=== PATIENT | female | born 1960 | race Caucasian/White ===

== ENCOUNTER 2016-05-08 12:38 | Observation (INO) | payer OTHER ==
[~2016-05-08 12:38] MED LIST: ACCL20 PO; ALBU1AER9 INH; ALEN70TA4 PO; CHOL100010 PO; CITA40TA12 PO; DXY100 PO; IPRASOL4 INH; POLY335019 PO; PRED20TA2 PO; SYMIN160 INH
[2016-05-08] MEDS ORDERED: PRED20TA PO (13:25)
[2016-05-08] MEDS ORDERED: ONDANSETRON INJ 2 MG/ML 2 ML VIAL IV STA (13:59)
[2016-05-08] MEDS ORDERED: HYDROmorphone INJ 1 MG/ML SYR IV STA (13:59)
[2016-05-08] MEDS ORDERED: METHYLPREDNISOLONE 125 MG VIAL IV STA (13:59)
[2016-05-08] MEDS ORDERED: ALBUT/IPRATROP 3MG/0.5MG NEB 3 ML VIAL INH ONE (14:00)
--- NOTE | 2016-05-08 14:19 | DIAGNOSTIC IMAGING REPORT ---
CHEST ONE VIEW PORTABLE CLINICAL HISTORY: Suspected pneumonia COMPARISON STUDY: 04/09/2016 FINDINGS: The cardiac and mediastinal contours remain stable. There is a left-sided A-Port catheter. There is mild interstitial thickening similar to the prior study. There is no lobar consolidation. There are no pleural effusions.[ IMPRESSION: Stable mild interstitial thickening. No acute findings. Electronically signed by: Jules Lester M.D. 05/08/2016 2:18 PM
[2016-05-08 14:23] VITALS: PULSE 91; O2SAT 95
[2016-05-08 14:28] LABS: BASO % 0.3 %; BASO ABS # 0.03 K/uL (0-0.2); COMPLETE YES; EOS % 0.9 %; HEMATOCRIT 32.5 % (37-47); IG% 0.2 %; LYMPH % 8.3 %; LYMPH ABS # 0.74 K/uL (1.2-3.4); MEAN CELL VOLUME 79.9 fL (80-100); MEAN CORPUSCULAR HEMOGLOBIN 24.3 pg (25-34); MEAN CORPUSCULAR HGB CONC 30.5 g/dl (32-36); MEAN PLATELET VOLUME 10.4 fL (7.4-10.4); MONO % 1.8 %; NEUT % 88.5 %; PLATELET COUNT 188 K/uL (130-400); RED BLOOD COUNT 4.07 M/uL (4.2-5.4)
[2016-05-08 14:38] LABS: INR 0.9 (0.9-1.1); PARTIAL THROMBOPLASTIN RATIO 0.9
[2016-05-08] MEDS ORDERED: HYDROmorphone INJ 0.5 MG/0.5 ML SYR ONE (14:43)
[2016-05-08 14:50] LABS: BLOOD UREA NITROGEN 10 mg/dl (7-18); BUN/CREATININE RATIO 13.7 (10-20); CALCIUM 8.6 mg/dl (8.5-10.1); CARBON DIOXIDE 30 mmol/L (21-32); CHLORIDE 107 mmol/L (98-107); GLUCOSE 125 mg/dl (70-99); POTASSIUM 3.4 mmol/L (3.5-5.1); SODIUM 143 mmol/L (136-145)
[2016-05-08] MEDS ORDERED: ACETAMINOPHEN 325 MG TAB PO PRN (16:30)
[2016-05-08] MEDS ORDERED: IV FLUIDS COMPLETED PRN (16:30)
[2016-05-08] MEDS ORDERED: ONDANSETRON INJ 2 MG/ML 2 ML VIAL IV PRN (16:30)
[2016-05-08] MEDS ORDERED: GLIM1TAB2 PO (16:45)
[2016-05-08] MEDS ORDERED: POTASSIUM CHLORIDE 10 MEQ TABCR PO SCH (16:45)
[2016-05-08] MEDS ORDERED: PIPERACILL/TAZOBAC CONSULT ACTIVE PRN (17:00)
[2016-05-08] MEDS ORDERED: POLYETHYLENE (MIRALAX) 17 GM PACK PO PRN (17:00)
[2016-05-08] MEDS ORDERED: LORAZEPAM 2 MG TAB PO PRN (17:00)
--- NOTE | 2016-05-08 17:03 | EMERGENCY ROOM VISIT NOTE ---
History Report prepared by Jean-Pierre: Bonnie Marks Under the Supervision of: Dr. Leo Gastelum M.D. First contact with patient: 13:53 Chief Complaint: SHORTNESS OF BREATH Stated Complaint: SHORTNESS OF BREATH History of Present Illness The patient is a 55 year old female who presents to the Emergency Room with complaints of worsening shortness of breath that began about 4 days ago. The patient has a history of COPD and her current symptoms feel very typical of a flare up. She has been using her nebulizer machine with minimal relief. Her most recent breathing treatment was this morning. She also complains of back pain. She has a history of chronic back pain due to a T11 compression fracture, but her back pain worsens when she starts having COPD flare ups. The patient uses 2L oxygen a home only as needed. She is on 10 mg Prednisone daily. She has minimal leg swelling without pain. She denies fever, chest pain, cough, vomiting , diarrhea, abdominal pain, or other complaints. Source of History: patient Onset: 4 days ago Position: other (Global - SOB) Quality: other (shortness of breath) Timing: worsening Modifying Factors (Relieving): other (nebulizer treatments) Associated Symptoms: + back pain, No abdominal pain, No chest pain, No cough , No diarrhea, No fevers, No vomiting Review of Systems See HPI for pertinent positives & negatives. A total of 10 systems reviewed and were otherwise negative. 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 (13) Microscopic hematuria (14) Osteoporosis (15) Sleep apnea (16) Vertebral fracture, closed Surgical Problems: (1) H/O sinus surgery (2) History of carpal tunnel surgery (3) S/P cardiac cath (4) S/P herniorrhaphy (5) Status post appendectomy (6) Status post hernia repair (7) Status post partial colectomy (8) Status post thermoplasty (9) Status post thermoplasty Family History FH: heart disease FATHER FH: sleep apnea MOTHER FHx: cancer FHx: gallbladder disease Hypertension MOTHER Kidney disease MOTHER Social History Smoking Status: Former Smoker Alcohol Use: none Marital Status: Housing Status: lives with significant other Occupation Status: disabled Current/Historical Medications Scheduled Alendronate Sodium (Fosamax), 70 MG PO WK Budesonide/Formoterol Fumarate (Symbicort 160/4.5 Inhaler ), 2 PUFFS INH BID Cholecalciferol (Vitamin D), 1,000 INTER.UNIT PO BID Citalopram Hydrobromide (Celexa), 40 MG PO QAM Cyanocobalamin (Vitamin B-12), 1,000 MCG PO QAM Docusate Sodium (Colace), 200 MG PO HS Immune Globulin (Human) Iv (Privigen), Unknown Dose IV MONTHLY Omeprazole (Prilosec), 20 MG PO BID Oxygen (Oxygen), 2 LITERS NA PRN Prednisone (Prednisone), 10 MG PO DAILY Zafirlukast (Zafirlukast), 20 MG PO BID Scheduled PRN Albuterol Sulfate (Proair Hfa), 1-2 PUFFS INH Q4-6HRS PRN for Rescue-Asthma Symptoms Epinephrine (Epipen 2-Deshawn), 0.3 MG IM UD PRN for ALLERGIC REACTION Furosemide (Furosemide), 40 MG PO UD PRN for Weight Gain Glimepiride (Glimepiride), 1 TAB PO DAILY PRN for glucose > 110 Hydrocodone/Acetaminophen 5MG/325MG ([place] 5MG/325MG), 1-2 TABS PO Q4-6H PRN for Pain Ipratropium-Albuterol (Duoneb), 1 TREATMENT INH Q4H PRN for PRN Lorazepam (Ativan), 1 MG PO QAM PRN for Anxiety Lorazepam (Lorazepam), 2 MG PO HS PRN for Anxiety Polyethylene Glycol 3350 (Miralax), 17 GM PO DAILY PRN for Constipation Potassium Chloride (Potassium Chloride Er), 10 MEQ PO BID PRN for If Furosemide was taken. Allergies Coded Allergies: Aspirin (Verified Allergy, Intermediate, HIVES, 05/08/16) Ibuprofen (Verified Allergy, Intermediate, HIVES, 05/08/16) Levofloxacin (Verified Allergy, Intermediate, HIVES, 05/08/16) Iodinated Diagnostic Agents (Verified Allergy, Unknown, HIVES, 05/08/16) Pregabalin (Unverified Allergy, Unknown, SEVERE DEPRESSION, 05/08/16) Zolpidem (Verified Adverse Reaction, Intermediate, HALLUCINATIONS, ) Gabapentin (Verified Adverse Reaction, Mild, GOOFY THOUGHTS, 05/08/16) Physical Exam Vital Signs Date Time Temp Pulse Resp B/P Pulse Ox O2 Delivery O2 Flow Rate FiO2 05/08/16 16:59 100 05/08/16 16:20 100 18 106/74 94 Nasal Cannula 3.0 05/08/16 14:47 95 18 123/64 97 Nebulizer 7.5 05/08/16 14:23 91 14 95 Nasal Cannula 2.0 05/08/16 13:43 91 20 108/63 95 Nasal Cannula 2.0 05/08/16 12:59 90 18 101/55 94 Nasal Cannula 2.0 05/08/16 12:57 92 05/08/16 12:45 97 Room Air 05/08/16 12:41 99 05/08/16 12:41 36.8 89 20 117/96 99 Physical Exam Constitutional: Vital signs reviewed. Eyes: Pupils are equal round reactive to light. Conjunctiva are noninjected. ENT: Pharynx is clear without erythema or exudate. Mucous membranes are moist. Neck supple without meningeal signs. Respiratory: Diffuse wheezing to auscultation bilaterally. Breath sounds are equal bilaterally. Cardiovascular: Regular rate and rhythm. No rubs or gallops. GI: Soft, nondistended and nontender. Bowel sounds are present. Musculoskeletal: No peripheral edema. No lower extremity tenderness. Integumentary: No cyanosis. Neurological: The patient is awake and alert. No focal deficits. Psychiatric: Normal affect. Medical Decision & Procedures ER Provider Diagnostic Interpretation: X-ray results as stated below per interpretation by me and the radiologist: CHEST ONE VIEW PORTABLE CLINICAL HISTORY: Suspected pneumonia COMPARISON STUDY: 04/09/2016 FINDINGS: The cardiac and mediastinal contours remain stable. There is a left-sided A-Port catheter. There is mild interstitial thickening similar to the prior study. There is no lobar consolidation. There are no pleural effusions.[ IMPRESSION: Stable mild interstitial thickening. No acute findings. Electronically signed by: Jules Lester M.D. 05/08/2016 2:18 PM Laboratory Results 05/08/16 14:15 Red Blood Count 4.07, Mean Corpuscular Volume 79.9, Mean Corpuscular Hemoglobin 24.3, Mean Corpuscular Hemoglobin Concent 30.5, Mean Platelet Volume 10.4, Neutrophils (%) (Auto) 88.5, Lymphocytes (%) (Auto) 8.3, Monocytes (%) (Auto) 1.8, Eosinophils (%) (Auto) 0.9, Basophils (%) (Auto) 0.3, Neutrophils # (Auto) 7.87, Lymphocytes # (Auto) 0.74, Monocytes # (Auto) 0.16, Eosinophils # (Auto) 0.08, Basophils # (Auto) 0.03 05/08/16 14:15 Test 05/08/16 14:15 White Blood Count 8.90 K/uL (4.8-10.8) Red Blood Count 4.07 M/uL (4.2-5.4) Hemoglobin 9.9 g/dL (12.0-16.0) Hematocrit 32.5 % (37-47) Mean Corpuscular Volume 79.9 fL (80-100) Mean Corpuscular Hemoglobin 24.3 pg (25-34) Mean Corpuscular Hemoglobin Concent 30.5 g/dl (32-36) Platelet Count 188 K/uL (130-400) Mean Platelet Volume 10.4 fL (7.4-10.4) Neutrophils (%) (Auto) 88.5 % Lymphocytes (%) (Auto) 8.3 % Monocytes (%) (Auto) 1.8 % Eosinophils (%) (Auto) 0.9 % Basophils (%) (Auto) 0.3 % Neutrophils # (Auto) 7.87 K/uL (1.4-6.5) Lymphocytes # (Auto) 0.74 K/uL (1.2-3.4) Monocytes # (Auto) 0.16 K/uL (0.11-0.59) Eosinophils # (Auto) 0.08 K/uL (0-0.5) Basophils # (Auto) 0.03 K/uL (0-0.2) RDW Standard Deviation 53.3 fL (36.4-46.3) RDW Coefficient of Variation 18.2 % (11.5-14.5) Immature Granulocyte % (Auto) 0.2 % Immature Granulocyte # (Auto) 0.02 K/uL (0.00-0.02) Prothrombin Time 10.0 SECONDS (9.0-12.0) Prothromb Time International Ratio 0.9 (0.9-1.1) Activated Partial Thromboplast Time 24.2 SECONDS (21.0-31.0) Partial Thromboplastin Ratio 0.9 Anion Gap 6.0 mmol/L (3-11) Estimated GFR () 112.3 Estimated GFR (Non- 96.9 BUN/Creatinine Ratio 13.7 (10-20) Calcium Level 8.6 mg/dl (8.5-10.1) Laboratory results as reviewed by me. Medications Administered Medications (Trade) Dose Ordered Sig/Kaye Route Start Time Stop Time Status Last Admin Dose Admin Albuterol/ Ipratropium (Duoneb) 12 ml ONE ONCE INH 05/08/16 14:00 05/08/16 14:03 DC 05/08/16 14:23 12 ML Methylprednisolone Sodium Succinate (Solu-Medrol IV) 125 mg NOW STAT IV 05/08/16 13:59 05/08/16 14:03 DC 05/08/16 14:46 125 MG Hydromorphone HCl (Dilaudid Inj) 0.5 mg NOW STAT IV 05/08/16 13:59 05/08/16 14:03 DC 05/08/16 14:46 0.5 MG Ondansetron HCl (Zofran Inj) 4 mg NOW STAT IV 05/08/16 13:59 05/08/16 14:03 DC 05/08/16 14:46 4 MG ED Course 1355: The patient was evaluated in room C4. A complete history and physical exam was performed. 1359: Ordered Zofran Inj 4 mg IV, Dilaudid Inj 0.5 mg IV, Solu-Medrol 125 mg IV , DuoNeb 12 ml INH. 1535: I reassessed the patient and updated her on test results. She was still wheezing significantly and does not feel comfortable going home. 1554: I discussed the case with [facility]. The patient will be evaluated for further management. Medical Decision This is a 55-year-old female who presents with back pain and shortness of breath. Differential diagnosis includes COPD exacerbation, pneumonia, bronchitis, pneumothorax, chronic pain, compression fracture. I did perform a limited focused review of portions of the patient's old chart on the electronic medical record. The patient was admitted April 09 for COPD exacerbation and was discharged home on Prednisone. She also had chronic back pain from compression fracture of T11 and was discharged on Dilaudid for that. I did evaluate the patient as noted above. IV access was established. The patient was placed on a continuous manager monitoring. I did treat the patient with an hour-long continuous DuoNeb. I also treated her with Solu-Medrol IV. She was given Dilaudid 0.5 mg IV for her chronic back pain. I did order and personally review the patient's 12-lead EKG and chest x-ray as described above. I did order and review the patient's blood work as noted in the electronic medical record. I did reassess the patient. The patient is feeling slightly better but not significantly improved. She wishes to be admitted to the hospital. She does have continued wheezing on examination although her air entry is improved. I did discuss the case with the Hospitalist and caseworker protective services. Consults Time Called: [phone] Consulting Physician: [facility] Returned Call: [phone] I discussed the case with her. The patient will be evaluated for further management. Impression Primary Impression: COPD exacerbation Additional Impressions: Chronic anemia, Chronic back pain Scribe Attestation The scribe's documentation has been prepared under my direct and personally reviewed by me in its entirety. I confirm that the note above accurately reflects all work, treatment, procedures, and medical decision making performed by me. Departure Information Dispostion Being Evaluated By Hospitalist Referrals Petra Kelly (PCP) Patient Instructions A Signature Page, My [facility]
--- NOTE | 2016-05-08 17:11 | History and Physical ---
History & Physical Date & Time of Service: May 08, 2016 at 16:54 Chief Complaint: Shortness Of Breath Primary Care Physician: Petra Kelly History of Present Illness Source: patient 55 year old female who presents to the ER with shortness of breath. Patient has underlying asthma/COPD and has had frequent admissions for exacerbations. Most recent admission was 04/09-/04/13. Patient underwent bronchoscopy during that admission that was unremarkable. Patient reports increasing shortness of breath for the past 5 days. She denies cough or sputum production. She noted wheezing. She was using nebulizers every 4 hours without any relief. She denies fever and chills. No chest pain or pressure. She denies lightheadedness, dizziness, diaphoresis, or syncopal events. No abdominal pain, nausea, vomiting, or diarrhea. She denies any urinary symptoms. In the ER, patient was saturating well on room air. She was treated with nebulizer, solumedrol, and Zofran. She was also given Dilaudid for chronic back pain. 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 (13) Microscopic hematuria Permanent Comment: evaluated by Urology; no significant path per patient Status: Chronic (14) Osteoporosis Status: Chronic (15) Sleep apnea Status: Chronic (16) Vertebral fracture, closed Status: Chronic Surgical Problems: (1) H/O sinus surgery Status: Chronic (2) History of carpal tunnel surgery Status: Chronic (3) S/P cardiac cath Status: Chronic (4) S/P herniorrhaphy Status: Chronic (5) Status post appendectomy Status: Chronic (6) Status post hernia repair Status: Chronic (7) Status post partial colectomy Status: Chronic (8) Status post thermoplasty Status: Chronic (9) Status post thermoplasty Status: Chronic Family History FH: heart disease FATHER FH: sleep apnea MOTHER FHx: cancer FHx: gallbladder disease Hypertension MOTHER Kidney disease MOTHER Social History Smoking Status: Former Smoker Alcohol Use: none Immunizations History of Influenza Vaccine: Yes Influenza Vaccine Date: Jan 25, 2016 History of Tetanus Vaccine?: Yes Tetanus Immunization Date: Aug 16, 2007 History of Pneumococcal: Yes Pneumococcal Date: Jan 02, 2016 Allergies Coded Allergies: Aspirin (Verified Allergy, Intermediate, HIVES, 05/08/16) Ibuprofen (Verified Allergy, Intermediate, HIVES, 05/08/16) Levofloxacin (Verified Allergy, Intermediate, HIVES, 05/08/16) Iodinated Diagnostic Agents (Verified Allergy, Unknown, HIVES, 05/08/16) Pregabalin (Unverified Allergy, Unknown, SEVERE DEPRESSION, 05/08/16) Zolpidem (Verified Adverse Reaction, Intermediate, HALLUCINATIONS, ) Gabapentin (Verified Adverse Reaction, Mild, GOOFY THOUGHTS, 05/08/16) Home Medications Scheduled Alendronate Sodium (Fosamax), 70 MG PO WK Budesonide/Formoterol Fumarate (Symbicort 160/4.5 Inhaler ), 2 PUFFS INH BID Cholecalciferol (Vitamin D), 1,000 INTER.UNIT PO BID Citalopram Hydrobromide (Celexa), 40 MG PO QAM Cyanocobalamin (Vitamin B-12), 1,000 MCG PO QAM Docusate Sodium (Colace), 200 MG PO HS Immune Globulin (Human) Iv (Privigen), Unknown Dose IV MONTHLY Omeprazole (Prilosec), 20 MG PO BID Oxygen (Oxygen), 2 LITERS NA PRN Prednisone (Prednisone), 10 MG PO DAILY Zafirlukast (Zafirlukast), 20 MG PO BID Scheduled PRN Albuterol Sulfate (Proair Hfa), 1-2 PUFFS INH Q4-6HRS PRN for Rescue-Asthma Symptoms Epinephrine (Epipen 2-Deshawn), 0.3 MG IM UD PRN for ALLERGIC REACTION Furosemide (Furosemide), 40 MG PO UD PRN for Weight Gain Glimepiride (Glimepiride), 1 TAB PO DAILY PRN for glucose > 110 Hydrocodone/Acetaminophen 5MG/325MG ([place] 5MG/325MG), 1-2 TABS PO Q4-6H PRN for Pain Ipratropium-Albuterol (Duoneb), 1 TREATMENT INH Q4H PRN for PRN Lorazepam (Ativan), 1 MG PO QAM PRN for Anxiety Lorazepam (Lorazepam), 2 MG PO HS PRN for Anxiety Polyethylene Glycol 3350 (Miralax), 17 GM PO DAILY PRN for Constipation Potassium Chloride (Potassium Chloride Er), 10 MEQ PO BID PRN for If Furosemide was taken. Review of Systems 10 point review of systems was completed with the pertinent positives and negatives noted per the HPI Physical Exam Vital Signs Date Time Temp Pulse Resp B/P Pulse Ox O2 Delivery O2 Flow Rate FiO2 05/08/16 16:20 100 18 106/74 94 Nasal Cannula 3.0 05/08/16 14:47 95 18 123/64 97 Nebulizer 7.5 05/08/16 14:23 91 14 95 Nasal Cannula 2.0 05/08/16 13:43 91 20 108/63 95 Nasal Cannula 2.0 05/08/16 12:59 90 18 101/55 94 Nasal Cannula 2.0 05/08/16 12:57 92 05/08/16 12:45 97 Room Air 05/08/16 12:41 99 05/08/16 12:41 36.8 89 20 117/96 99 General Appearance: no apparent distress Head: normocephalic Eyes: normal inspection ENT: hearing grossly normal Neck: supple, no JVD Respiratory/Chest: no respiratory distress, + decreased breath sounds ( minimally BL), + wheezing (audible, however no wheezing ausculated in lung mccain) Cardiovascular: regular rate, rhythm, no edema, normal peripheral pulses Abdomen/GI: normal bowel sounds, non tender, soft Extremities/Musculoskelatal: normal inspection, no calf tenderness Neurologic/Psych: no motor/sensory deficits, alert, normal mood/affect, oriented x 3 Skin: normal color, warm/dry Diagnostics Laboratory Results Results Past 24 Hours Test 05/08/16 14:15 Range/Units White Blood Count 8.90 4.8-10.8 K/uL Red Blood Count 4.07 4.2-5.4 M/uL Hemoglobin 9.9 12.0-16.0 g/dL Hematocrit 32.5 37-47 % Mean Corpuscular Volume 79.9 80-100 fL Mean Corpuscular Hemoglobin 24.3 25-34 pg Mean Corpuscular Hemoglobin Concent 30.5 32-36 g/dl Platelet Count 188 130-400 K/uL Mean Platelet Volume 10.4 7.4-10.4 fL Neutrophils (%) (Auto) 88.5 % Lymphocytes (%) (Auto) 8.3 % Monocytes (%) (Auto) 1.8 % Eosinophils (%) (Auto) 0.9 % Basophils (%) (Auto) 0.3 % Neutrophils # (Auto) 7.87 1.4-6.5 K/uL Lymphocytes # (Auto) 0.74 1.2-3.4 K/uL Monocytes # (Auto) 0.16 0.11-0.59 K/uL Eosinophils # (Auto) 0.08 0-0.5 K/uL Basophils # (Auto) 0.03 0-0.2 K/uL RDW Standard Deviation 53.3 36.4-46.3 fL RDW Coefficient of Variation 18.2 11.5-14.5 % Immature Granulocyte % (Auto) 0.2 % Immature Granulocyte # (Auto) 0.02 0.00-0.02 K/uL Prothrombin Time 10.0 9.0-12.0 SECONDS Prothromb Time International Ratio 0.9 0.9-1.1 Activated Partial Thromboplast Time 24.2 21.0-31.0 SECONDS Partial Thromboplastin Ratio 0.9 Sodium Level 143 136-145 mmol/L Potassium Level 3.4 3.5-5.1 mmol/L Chloride Level 107 98-107 mmol/L Carbon Dioxide Level 30 21-32 mmol/L Anion Gap 6.0 3-11 mmol/L Blood Urea Nitrogen 10 7-18 mg/dl Creatinine 0.70 0.60-1.20 mg/dl Estimated GFR () 112.3 Estimated GFR (Non- 96.9 BUN/Creatinine Ratio 13.7 10-20 Random Glucose 125 70-99 mg/dl Calcium Level 8.6 8.5-10.1 mg/dl Diagnostic Radiology CXR IMPRESSION: Stable mild interstitial thickening. No acute findings. Impression Assessment and Plan ASTHMA/COPD EXACERBATION - admit to med/surg - presenting with increasing shortness of breath for 5 days - has had several admissions in the past for similar symptoms, most recently 04/10-04/13 - no hypoxia - IV steroids and around the clock nebs - empiric Doxy - continue Symbicort and Zafirlukast - hx of AAT deficiency, received IVIG monthly - pulmonary consult, input appreciated STEROID INDUCED DM - hold oral agents, utilize SSI while hospitalized CHRONIC BACK PAIN - following with spine ortho as an outpatient, MRI scheduled for next week - continue home dose of [place] CHRONIC ANEMIA - hgb at baseline DVT PROPHYLAXIS - SQ Lovenox DISPO - The patient will be placed as observation status for now until further work up is complete. ATTENDING NOTE : pt seen and examined, in agreement with above 55 yo F with hx of COPD , recurrent admission presented with SOB , wheeze no fever or chills, minimum cough , has SABA recently discharged form [facility] for similar respiratory complain , had bronchoscopy done showed normal study P/E: gen : no sign of distress HEENT: sclera non icteric , PERRLA/EOMI neck : no thyromegaly ,trachea midline lungs; diminished, no wheeze noted abdomen; soft. non tender ext ; no rash or deformity neuro; no focal neurological deficit A/P : SOB /COPD exacerbation recurrent admission for similar symptom pulmonology consulted , pt is known to service empiric abx Doxycycline for bronchitis, no evidence of pneumonia , no infiltrate in chest xray . normal white count, no fever IV Solu Medrol for broncospasm Chronic back pain : follows with Orthopedics Dr Sadler Full code Level of Care Med/Surg Resuscitation Status FULL RESUSCITATION VTE Prophylaxis VTE Risk Assessment Done? Y/N: Yes Risk Level: Moderate
[2016-05-08] MEDS ORDERED: GLUCAGON FOR INJ 1 MG VIAL SQ PRN (17:15)
[2016-05-08] MEDS ORDERED: DEXTROSE 50% 50 ML SYR IV PRN (17:15)
[2016-05-08] MEDS ORDERED: GLUCOSE 40% GEL 15 GM TUBE PO PRN (17:15)
[2016-05-08] MEDS ORDERED: GLUCOSE 10 TABS/TUBE PO PRN (17:15)
[2016-05-08] MEDS: HYDROCODONE/ACETAMOPHEN 5/325MG TAB PO PRN (19:06)
[2016-05-08 19:12] VITALS: BP 126/79; PULSE 103; TEMP 36.6; O2SAT 91
[2016-05-08 19:46] VITALS: PULSE 95; O2SAT 94
[2016-05-08] MEDS: ALBUT/IPRATROP 3MG/0.5MG NEB 3 ML VIAL INH SCH (19:46)
[2016-05-08] MEDS: DOXYCYCLINE HYCLATE 100 MG CAP PO SCH (20:12)
[2016-05-08] MEDS: BUDESONIDE/FORMOTEROL FUMARATE 160/4.5 60 PUFFS/INHALER INH SCH (20:13)
[2016-05-08] MEDS: ZAFIRLUKAST TAB 20 MG TAB PO SCH (20:14)
[2016-05-08] MEDS: PANTOprazole SOD 40 MG TAB PO SCH (20:14)
[2016-05-08] MEDS: DOCUSATE SODIUM 100 MG CAP PO SCH (20:15)
[2016-05-08] MEDS: CHOLECALCIFEROL 1000 INTER.UNIT TAB PO SCH (20:15)
[2016-05-08] MEDS: ENOXAPARIN 40 MG/0.4 ML SYR SQ SCH (20:15)
[2016-05-08] MEDS: METHYLPREDNISOLONE IV 40 MG in SYRINGE 0 ML IV SCH (20:22)
[2016-05-08] MEDS: INSULIN ASPART 100 UNITS/ML 3 ML PEN SC SCH (20:29)
[2016-05-08] MEDS: MoRPHine SULFATE 4 MG/ML 1 ML CARP\\VIAL IV PRN (23:27)
[2016-05-08] MEDS ORDERED: NURSING VERBAL MED ORDER ONE (23:45)
[2016-05-08 23:51] VITALS: PULSE 77; O2SAT 98
[2016-05-09] VITALS (8 sets, daily range): BP systolic 109–125; BP diastolic 72–75; PULSE 64–89; TEMP 36.6–36.7; O2SAT 91–98
[2016-05-09] MEDS: HYDROCODONE/ACETAMOPHEN 5/325MG TAB PO PRN ×2 (02:40→11:38)
[2016-05-09 05:51] LABS: MEAN CELL VOLUME 79.3 fL (80-100); MEAN CORPUSCULAR HGB CONC 30.3 g/dl (32-36); MEAN PLATELET VOLUME 10.8 fL (7.4-10.4); PLATELET COUNT 222 K/uL (130-400); RED BLOOD COUNT 3.91 M/uL (4.2-5.4); WHITE BLOOD COUNT 8.13 K/uL (4.8-10.8)
[2016-05-09 06:30] LABS: BLOOD UREA NITROGEN 10 mg/dl (7-18); BUN/CREATININE RATIO 11.9 (10-20); CALCIUM 8.4 mg/dl (8.5-10.1); CARBON DIOXIDE 28 mmol/L (21-32); CHLORIDE 106 mmol/L (98-107); CREATININE 0.86 mg/dl (0.60-1.20); GLUCOSE 174 mg/dl (70-99); POTASSIUM 4.4 mmol/L (3.5-5.1); SODIUM 141 mmol/L (136-145)
[2016-05-09] MEDS: MoRPHine SULFATE 4 MG/ML 1 ML CARP\\VIAL IV PRN ×3 (06:39→21:05)
[2016-05-09] MEDS: METHYLPREDNISOLONE IV 40 MG in SYRINGE 0 ML IV SCH ×3 (06:39→21:01)
[2016-05-09] MEDS: ALBUT/IPRATROP 3MG/0.5MG NEB 3 ML VIAL INH SCH ×3 (07:13→20:02)
[2016-05-09] MEDS: BUDESONIDE/FORMOTEROL FUMARATE 160/4.5 60 PUFFS/INHALER INH SCH ×2 (08:13→21:00)
[2016-05-09] MEDS: PANTOprazole SOD 40 MG TAB PO SCH ×2 (08:13→20:59)
[2016-05-09] MEDS: CYANOCOBALAMIN 500 MCG TAB (VIT B-12) PO SCH (08:14)
[2016-05-09] MEDS: ZAFIRLUKAST TAB 20 MG TAB PO SCH ×2 (08:14→20:59)
[2016-05-09] MEDS: DOXYCYCLINE HYCLATE 100 MG CAP PO SCH ×2 (08:14→20:59)
[2016-05-09] MEDS: CITALOPRAM 40 MG TAB PO SCH (08:14)
[2016-05-09] MEDS: CHOLECALCIFEROL 1000 INTER.UNIT TAB PO SCH ×2 (08:15→20:59)
[2016-05-09] MEDS: INSULIN ASPART 100 UNITS/ML 3 ML PEN SC SCH ×4 (08:19→21:00)
--- NOTE | 2016-05-09 08:52 | PULMONARY CONSULTATION ---
DATE OF CONSULTATION: 05/09/2016 DATE OF CONSULTATION: 05/09/2016. HISTORY OF PRESENT ILLNESS: The patient is a 55-year-old female admitted to the hospital and CRISTOPHER Dumont has asked me to evaluate the patient from a pulmonary standpoint. I know Mrs. Mahajan from multiple hospitalizations for respiratory insufficiency and asthma. She recently had been here in March once again, seen by Dr. Tarango. According to his notes, she was very stable by the and by April 13 was quite stable. She was discharged on 04/13/2016, states she had actually been doing fairly well. However, as the prednisone was tapered down to 10 mg she started to develop some mild shortness of breath. She was able to do her shopping and do her work with her family over the holidays. Several days ago started to develop worsening shortness of breath associated with a nonproductive cough. That began about 4 days prior to admission. She was seen by Dr. Maxx Gastelum in the Emergency Room. She was noted to have some chronic back pain with T11 compression fractures. She states her reflux is under good control. She had been on 10 mg of prednisone at that time along with 2 liters of oxygen. In the Emergency Room hemodynamically stable. Blood pressure 106/74, oxygen saturation 94% on 3 liters, 94% on 2 liters as well. On room air was 97% and she was afebrile. Respiratory rate was 20. She had diffuse wheezing with auscultation. Chest x-ray showed some mild interstitial thickening. No acute changes. Laboratory work looked good except potassium of 3.4. Since admission she is stable at the present time. She states she continues to be short of breath but with the nebulizer treatments she is improved. PAST MEDICAL HISTORY: Positive for asthma, obesity, chronic back pain, T11 compression fractures, depression, hyperlipidemia, GERD which is under good control, alpha 1 antitrypsin deficiency carrier state. She has a history of pulmonary embolism, diverticulitis, renal insufficiency, osteoporosis. PAST SURGICAL HISTORY: Carpal tunnel surgery, cardiac catheterization, herniorrhaphy, appendectomy, sinus surgery. She has had bronchial thermoplasty and a partial colectomy for diverticulitis. She also had bronchoscopy by Dr. Chua last month. It revealed some early dynamic airway collapse of the right main stem bronchus but there was not a significant amount of inflammation noted. She also had a bronchoscopy done in August of this year that looked fairly good. On the 11 of April of this year the AFB smears and fungal smears were negative. Gram stain revealed a paucity of inflammatory cells but no organisms are noted. The culture was negative. FAMILY HISTORY: Unremarkable. Father has had heart disease. Mother had obstructive sleep apnea, gallbladder disease and hypertension. SOCIAL HISTORY: Otherwise, unremarkable. She quit smoking in the remote past. She is not an alcohol user. ALLERGIES: MULTIPLE ALLERGIES NOTED INCLUDING NEURONTIN, AMBIEN, PREGABALIN, IODINATED DIAGNOSTIC AGENTS, LEVAQUIN, IBUPROFEN AND ASPIRIN. MEDICATIONS: Are noted. She states she is very compliant with Symbicort 160/4.5 two puffs b.i.d. and she is on Accolate as well. She is followed by Dr. Chua and Semaj Birch PA-C as an outpatient. PHYSICAL EXAMINATION: VITAL SIGNS: Her blood pressure is 125/75, respiratory rate is 20, oxygen saturation 92% on 2 liters. She is afebrile. No weight is noted at this point. HEAD, EYES, EARS, NOSE, AND THROAT: Shows no thrush. She has a small posterior pharynx with no evidence of upper airway obstruction. Trachea midline. No adenopathy is noted. HEART: Regular rate and rhythm. No murmurs are heard. LUNGS: Reveal some mild wheezing bilaterally posteriorly. Anteriorly, the lungs actually sound fairly good. There is no fremitus or dullness to percussion. The A-port site on the left side looks fairly good. ABDOMEN: Soft and obese, nontender. EXTREMITIES: She has no cyanosis, clubbing or edema. Chest x-ray shows some mild interstitial thickening similar to the film from the 09 of April of this year. Left-sided A-port catheter looks good. No effusions or pneumothorax is noted. White count 8.13, H\T\H 9.4 and 31%, platelet count 222,000. Chemistry profile looks good with a potassium of 3.4, CO2 normal at 30, glucose 263, magnesium 1.9. Coagulation profile was unremarkable. IMPRESSION: 1. Bronchial asthma with exacerbation. 2. Obstructive sleep apnea. 3. Gastroesophageal reflux disease. RECOMMENDATIONS: 1. Continue with her present medications. I would attempt to cut back on the pain medications since the [place] may precipitate worsening reflux. 2. Good DVT prophylaxis with Lovenox and SCDs would be recommended. 3. We may consider stopping the Accolate and place her on Singulair 10 mg 1 tablet daily. 4. Continue on the methylprednisolone 40 mg IV q. 8 hours. She is on DuoNeb, that could be given 4 times a day and then q. 4 hours p.r.n. I spoke with her about keeping her activity increased as much as possible. Thanks for asking me to evaluate Ms. Mahajan and I will glad to see her again during her hospitalization.
[2016-05-09] MEDS: ENOXAPARIN 40 MG/0.4 ML SYR SQ SCH (17:09)
[2016-05-09] MEDS: DOCUSATE SODIUM 100 MG CAP PO SCH (20:59)
[2016-05-09] MEDS ORDERED: NURSING VERBAL MED ORDER ONE (21:15)
[2016-05-09] MEDS ORDERED: POLYETHYLENE (MIRALAX) 17 GM PACK PO STA (21:16)
--- NOTE | 2016-05-09 22:42 | Progress Note ---
Internal Med Progress Note Date of Service: May 09, 2016. Provider Documentation: SUBJECTIVE: feels much better , minimum cough no wheeze no fever or chills OBJECTIVE: Vital Signs-as noted below Exam: General-no sign of distress Eyes-sclera non icteric , PERRLA/EOMI ENT-NAD Neck-no thyromegaly , trachea midline Lungs-diminished breath sound, no wheeze , no rales Heart-regular S1/S2 Abdomen-soft, non tender Extremities-no rash , deformity Neuro-no focal neurological deficit Lab data as noted below. ASSESSMENT & PLAN: ASTHMA/COPD EXACERBATION - clinically improved - presenting with increasing shortness of breath for 5 days - has had several admissions in the past for similar symptoms, most recently 04/10-04/13 - no hypoxia - taper down IV Solu Medrol - empiric Doxy - continue Symbicort and Zafirlukast - hx of AAT deficiency, received IVIG monthly - pulmonary consult, input appreciated STEROID INDUCED DM - hold oral agents, utilize SSI while hospitalized CHRONIC BACK PAIN - following with spine ortho as an outpatient, MRI scheduled for next week - continue home dose of [place] CHRONIC ANEMIA - hgb at baseline DVT PROPHYLAXIS - SQ Lovenox DISPOSITION discharge home in 1-2 days as clinically improve Vital Signs: Date Time Temp Pulse Resp B/P Pulse Ox O2 Delivery O2 Flow Rate FiO2 05/09/16 20:02 72 14 95 Nasal Cannula 2.0 05/09/16 16:42 36.6 72 18 109/73 96 Nasal Cannula 2.0 05/09/16 16:10 Room Air 05/09/16 11:10 72 16 98 Nasal Cannula 2.0 05/09/16 08:15 Room Air 05/09/16 07:30 36.6 64 18 125/75 93 Room Air 05/09/16 07:13 68 16 91 Room Air 05/09/16 00:17 36.7 89 20 125/75 92 CPAP 05/09/16 00:00 Room Air 2.0 CPAP 05/08/16 23:51 77 98 2.0 Lab Results: Results Past 24 Hours Test 05/09/16 05:43 05/09/16 07:18 05/09/16 11:13 05/09/16 16:18 Range/Units White Blood Count 8.13 4.8-10.8 K/uL Red Blood Count 3.91 4.2-5.4 M/uL Hemoglobin 9.4 12.0-16.0 g/dL Hematocrit 31.0 37-47 % Mean Corpuscular Volume 79.3 80-100 fL Mean Corpuscular Hemoglobin 24.0 25-34 pg Mean Corpuscular Hemoglobin Concent 30.3 32-36 g/dl RDW Standard Deviation 52.9 36.4-46.3 fL RDW Coefficient of Variation 18.2 11.5-14.5 % Platelet Count 222 130-400 K/uL Mean Platelet Volume 10.8 7.4-10.4 fL Sodium Level 141 136-145 mmol/L Potassium Level 4.4 3.5-5.1 mmol/L Chloride Level 106 98-107 mmol/L Carbon Dioxide Level 28 21-32 mmol/L Anion Gap 7.0 3-11 mmol/L Blood Urea Nitrogen 10 7-18 mg/dl Creatinine 0.86 0.60-1.20 mg/dl Estimated GFR () 87.5 Estimated GFR (Non- 75.5 BUN/Creatinine Ratio 11.9 10-20 Random Glucose 174 70-99 mg/dl Calcium Level 8.4 8.5-10.1 mg/dl Bedside Glucose 146 169 139 70-90 mg/dl Test 05/09/16 19:53 Range/Units Bedside Glucose 176 70-90 mg/dl
[2016-05-10] VITALS (10 sets, daily range): BP systolic 99–122; BP diastolic 64–75; PULSE 64–80; TEMP 36.6–36.8; O2SAT 92–98
[2016-05-10] MEDS: MoRPHine SULFATE 4 MG/ML 1 ML CARP\\VIAL IV PRN ×3 (04:50→19:32)
--- NOTE | 2016-05-10 06:59 | PULMONARY PROGRESS NOTE ---
DATE: 05/10/2016 HISTORY OF PRESENT ILLNESS: The patient is considerably improved over the last 24 hours. She was out walking in the hallway yesterday, continued to have very mild dyspnea with exertion and back pain, has been given pain medications for that. She has tolerated the CPAP well. She denies cough, chest pain at rest or while sitting. Seems to be quite stable at the present time. She is tolerating the meds well. PHYSICAL EXAMINATION: VITAL SIGNS: Stable and she is afebrile. Oxygen saturation 96% on CPAP with 2 liters of oxygen administration. Blood pressure is 118/72. No weight has been done. HEENT: Oral mucosa: Posterior pharynx shows no evidence of thrush. Nose exam is unremarkable. No adenopathy is noted. HEART: Regular rate and rhythm at 70 beats per minute. LUNGS: Clear today. She forces some exhalation with some very mild wheezing over the trachea, but I think that is just from forced exhalation. With normal breathing her exam is normal. No fremitus is noted. ABDOMEN: Soft, obese, nontender. EXTREMITIES: She has no cyanosis, clubbing or edema. Chest x-ray showed some mild interstitial thickening. LABORATORY DATA: White count was 8.1, hematocrit 31%, platelet count 222,000. PRP on the was unremarkable. Sugars have been in the 139-176 range. Calcium is 8.4. IMPRESSION: 1. Bronchial asthma with exacerbation. 2. Obstructive sleep apnea. 3. Anemia, etiology uncertain. RECOMMENDATIONS: 1. Continue with her present medications. I would taper the steroids. She can be placed on 30 mg of prednisone and that can be tapered by about 5 mg every week down to 15 mg. It appears each time she gets to 10 mg a day she starts to develop problems with wheezing and shortness of breath. It may be judicious to put her on 15 mg every other day in the future and perhaps 12.5 mg every other day then 10 mg every other day, and that may be enough to control the asthma. 2. I will continue on the Symbicort. 3. Change the Accolate to Singulair 10 mg daily. 4. Good control of glucose. 5. She will follow up with Dr. Chua and Semaj Birch as an outpatient as well. [facility]
[2016-05-10] MEDS: ALBUT/IPRATROP 3MG/0.5MG NEB 3 ML VIAL INH SCH ×5 (07:07→20:26)
[2016-05-10] MEDS: PANTOprazole SOD 40 MG TAB PO SCH ×2 (08:16→21:30)
[2016-05-10] MEDS: CITALOPRAM 40 MG TAB PO SCH (08:16)
[2016-05-10] MEDS: CHOLECALCIFEROL 1000 INTER.UNIT TAB PO SCH ×2 (08:16→21:29)
[2016-05-10] MEDS: POLYETHYLENE (MIRALAX) 17 GM PACK PO SCH ×2 (08:16→21:28)
[2016-05-10] MEDS: METHYLPREDNISOLONE IV 40 MG in SYRINGE 0 ML IV SCH ×2 (08:16→21:28)
[2016-05-10] MEDS: DOXYCYCLINE HYCLATE 100 MG CAP PO SCH ×2 (08:16→21:30)
[2016-05-10] MEDS: CYANOCOBALAMIN 500 MCG TAB (VIT B-12) PO SCH (08:16)
[2016-05-10] MEDS: ZAFIRLUKAST TAB 20 MG TAB PO SCH ×2 (08:16→21:30)
[2016-05-10] MEDS: BUDESONIDE/FORMOTEROL FUMARATE 160/4.5 60 PUFFS/INHALER INH SCH ×2 (08:18→21:31)
[2016-05-10] MEDS: HYDROCODONE/ACETAMOPHEN 5/325MG TAB PO PRN ×3 (08:26→21:28)
[2016-05-10] MEDS: INSULIN ASPART 100 UNITS/ML 3 ML PEN SC SCH ×4 (08:36→21:00)
[2016-05-10] MEDS ORDERED: OPTIRAY 320 IV PRN (12:00)
[2016-05-10] MEDS ORDERED: DiphenhydrAMINE INJ 50 MG in SYRINGE 0 ML IV SCH (14:00)
[2016-05-10] MEDS ORDERED: DiphenhydrAMINE HCL 50 MG/ML VIAL IV ONE (14:15)
[2016-05-10] MEDS: ENOXAPARIN 40 MG/0.4 ML SYR SQ SCH (15:45)
--- NOTE | 2016-05-10 16:42 | DIAGNOSTIC IMAGING REPORT ---
CT ANGIOGRAM OF THE CHEST CLINICAL HISTORY: Atypical chest pain and shortness of breath. Possible pulmonary embolism. COMPARISON STUDY: Chest x-ray dated 04/30/2016, CT scan dated 03/15/2016 TECHNIQUE: Following the IV administration of 87 mL of Optiray-320, CT angiogram of the thorax was performed from the thoracic inlet to the lung bases utilizing the pulmonary embolus protocol. Images are reviewed in the axial, sagittal, and coronal planes. IV contrast was administered without complication. MIP imaging was performed. CT DOSE: 591.90 mGy.cm FINDINGS: No pathologically enlarged axillary mediastinal or hilar lymph nodes were visualized. There was no evidence of thoracic aortic dilatation. There were no pulmonary artery filling defects to indicate acute pulmonary embolism. No pleural effusions are visualized. There is elevation right hemidiaphragm. There is right lower lobe bronchial wall thickening and mucous plugging and atelectatic change. There is a mild superior endplate T11 compression deformity There is a left subclavian central venous catheter. IMPRESSION: 1. No evidence of acute pulmonary embolism 2. No evidence of pathologic adenopathy 3. Elevation of the right hemidiaphragm 4. Right lower lobe bronchial wall thickening, mucous plugging, and atelectatic change Electronically signed by: Jules Lester M.D. 05/10/2016 4:41 PM
--- NOTE | 2016-05-10 17:47 | Progress Note ---
Internal Med Progress Note Date of Service: May 10, 2016. Provider Documentation: SUBJECTIVE: pt complains of chest pain , sob this AM felt palpitation , SABA rt upper chest wall rib cage pain ,worse with taking deep breath no fever or chills wheeze and cough has improved OBJECTIVE: Vital Signs-as noted below Exam: General-no sign of distress Eyes-sclera non icteric , PERRLA/EOMI ENT-NAD Neck-no thyromegaly , trachea midline Lungs-diminished breath sound, no wheeze , no rales , point tenderness in chest wall on rt upper Heart-regular S1/S2 Abdomen-soft, non tender Extremities-no rash , deformity Neuro-no focal neurological deficit Lab data as noted below. ASSESSMENT & PLAN: ASTHMA/COPD EXACERBATION - presented with increasing shortness of breath for 5 days - has had several admissions in the past for similar symptoms, most recently 04/10-04/13 - no hypoxia - on IV Solu Medrol ; empiric abx Doxy for possible bronchitis - continue Symbicort and Zafirlukast - hx of AAT deficiency, received IVIG monthly - pulmonary consult, input appreciated -pt complains of chest pain /sob /rt sided chest wall discomfort, palpitation -CTA of chest done : no sign of PE IMPRESSION: 1. No evidence of acute pulmonary embolism 2. No evidence of pathologic adenopathy 3. Elevation of the right hemidiaphragm 4. Right lower lobe bronchial wall thickening, mucous plugging, and atelectatic change pt updated regarding the report Pulmonology following , will D/w Dr French regarding rt lower lobe mucosus plugging pt had recent Bronch few weeks back -had normal finding STEROID INDUCED DM - hold oral agents, utilize SSI while hospitalized CHRONIC BACK PAIN - following with spine ortho as an outpatient, MRI scheduled for next week - continue home dose of [place] CHRONIC ANEMIA - hgb at baseline DVT PROPHYLAXIS - SQ Lovenox DISPOSITION discharge home in 1-2 days as clinically improve Vital Signs: Date Time Temp Pulse Resp B/P Pulse Ox O2 Delivery O2 Flow Rate FiO2 05/10/16 15:30 36.8 64 19 122/75 96 Nasal Cannula 2.0 05/10/16 11:16 76 16 96 Nasal Cannula 2.0 05/10/16 10:10 76 16 96 Nasal Cannula 2.0 05/10/16 09:50 78 18 111/74 98 Room Air 05/10/16 08:20 36.6 72 18 99/64 92 Room Air 05/10/16 08:00 92 Room Air 05/10/16 07:10 68 14 97 Room Air 05/10/16 00:00 95 CPAP 2.0 05/09/16 23:58 73 93 2.0 05/09/16 23:05 36.7 77 18 118/72 96 CPAP 05/09/16 20:02 72 14 95 Nasal Cannula 2.0 Lab Results: Results Past 24 Hours Test 05/09/16 19:53 05/10/16 07:47 05/10/16 11:05 05/10/16 11:32 Range/Units Bedside Glucose 176 100 138 70-90 mg/dl D-Dimer 900 0-500 ug/L FEU Test 05/10/16 16:18 Range/Units Bedside Glucose 145 70-90 mg/dl
[2016-05-10] MEDS: DOCUSATE SODIUM 100 MG CAP PO SCH (21:29)
[2016-05-11] VITALS (7 sets, daily range): BP systolic 109–167; BP diastolic 73–84; PULSE 60–80; TEMP 36.5–37.1; O2SAT 93–99
[2016-05-11] MEDS: MoRPHine SULFATE 4 MG/ML 1 ML CARP\\VIAL IV PRN ×3 (04:36→18:38)
[2016-05-11] MEDS: ALBUT/IPRATROP 3MG/0.5MG NEB 3 ML VIAL INH SCH ×4 (06:57→20:10)
[2016-05-11] MEDS: BUDESONIDE/FORMOTEROL FUMARATE 160/4.5 60 PUFFS/INHALER INH SCH ×2 (07:55→20:58)
[2016-05-11] MEDS: ZAFIRLUKAST TAB 20 MG TAB PO SCH ×2 (07:56→20:58)
[2016-05-11] MEDS: CHOLECALCIFEROL 1000 INTER.UNIT TAB PO SCH ×2 (07:56→20:57)
[2016-05-11] MEDS: POLYETHYLENE (MIRALAX) 17 GM PACK PO SCH ×2 (07:56→20:58)
[2016-05-11] MEDS: CITALOPRAM 40 MG TAB PO SCH (07:56)
[2016-05-11] MEDS: CYANOCOBALAMIN 500 MCG TAB (VIT B-12) PO SCH (07:56)
[2016-05-11] MEDS: DOXYCYCLINE HYCLATE 100 MG CAP PO SCH ×2 (07:56→20:57)
[2016-05-11] MEDS: PANTOprazole SOD 40 MG TAB PO SCH ×2 (07:56→20:58)
[2016-05-11] MEDS: METHYLPREDNISOLONE IV 40 MG in SYRINGE 0 ML IV SCH ×2 (08:28→20:58)
[2016-05-11] MEDS: INSULIN ASPART 100 UNITS/ML 3 ML PEN SC SCH ×4 (08:33→20:17)
[2016-05-11] MEDS: HYDROCODONE/ACETAMOPHEN 5/325MG TAB PO PRN (15:54)
[2016-05-11] MEDS: ENOXAPARIN 40 MG/0.4 ML SYR SQ SCH (15:54)
--- NOTE | 2016-05-11 17:33 | Pulmonology Progress Note ---
Pulmonary Progress Note Date of Service May 11, 2016. Attending Dr. Leo Chua Subjective Patient notes dyspnea on exertion while walking the halls and tachycardia. Objective Patient able to complete full sentences during our conversation not using accessory muscles signs of increased work of breathing. Vital signs: Patient stable on 2 L with STEPHANIE twos in the mid to high 90s Respiratory: Minimal breath sounds bilaterally with notable expiratory wheezing Cardiac S1-S2 regular rate and rhythm Assessment & Plan 55-year-old female with severe poorly controlled asthma/ACOS: #1 ACOS: Agree with current management but will stop IV methylprednisolone this evening and initiate prednisone oral 3 times a day for total 60 per day. Also agree with Dr. French as we taper down slowly over the next 2-3 months should maintain patient had 10-15 mg per day. 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 Data Medications: Current Inpatient Medications Medications (Trade) Dose Ordered Sig/Kaye Route Start Time Stop Time Status Last Admin Dose Admin Enoxaparin Sodium (Lovenox Inj) 40 mg Q24H SQ 05/08/16 16:30 06/07/16 16:29 Acetaminophen (Tylenol Tab) 650 mg Q4H PRN PO 05/08/16 16:30 06/07/16 16:29 Ondansetron HCl (Zofran Inj) 4 mg Q6H PRN IV 05/08/16 16:30 06/07/16 16:29 Miscellaneous (Iv Fluids Completed) 1 ea PRN PRN N/A 05/08/16 16:30 05/08/17 16:29 Albuterol/ Ipratropium (Duoneb) 3 ml QIDR INH 05/08/16 20:00 06/07/16 19:59 05/11/16 06:57 3 ML Doxycycline Hyclate (Vibramycin Cap) 100 mg BID PO 05/08/16 16:30 05/18/16 16:29 05/11/16 07:56 100 MG Budesonide/ Formoterol Fumarate (Symbicort 160/ 4.5 Inh) 2 puffs BID INH 05/08/16 21:00 06/07/16 20:59 05/11/16 07:55 2 PUFFS Cholecalciferol (Vitamin D Tab) 1,000 inter.unit BID PO 05/08/16 21:00 06/07/16 20:59 05/11/16 07:56 1,000 INTER.UNIT Citalopram Hydrobromide (celeXA TAB) 40 mg QAM PO 05/09/16 09:00 06/08/16 08:59 05/11/16 07:56 40 MG Cyanocobalamin (Vitamin B-12 Tab) 1,000 mcg QAM PO 05/09/16 09:00 06/08/16 08:59 05/11/16 07:56 1,000 MCG Docusate Sodium (coLACE CAP) 200 mg HS PO 05/08/16 21:00 06/07/16 20:59 05/10/16 21:29 200 MG Acetaminophen/ Hydrocodone Bitart (Martin 5/325 Tab) `1-2 tabs for pain 1 tab ... Q6H PRN PO 05/08/16 17:00 05/22/16 16:59 05/11/16 15:54 2 TAB Lorazepam (Ativan Tab) 2 mg HS PRN PO 05/08/16 17:00 06/07/16 16:59 Lorazepam (Ativan Tab) 1 mg QAM PRN PO 05/08/16 17:00 06/07/16 16:59 Zafirlukast (Accolate Tab) 20 mg BID PO 05/08/16 21:00 06/07/16 20:59 05/11/16 07:56 20 MG Pantoprazole Sodium (Protonix Tab) 40 mg BID PO 05/08/16 21:00 06/07/16 20:59 05/11/16 07:56 40 MG Insulin Aspart (novoLOG ASPART) SLIDING SCALE If C... ACHS SC 05/08/16 21:00 06/07/16 20:59 05/11/16 12:52 1 UNITS Glucose (Glucose 40% Gel) 15-30 GRAMS 15 GRAMS... UD PRN PO 05/08/16 17:15 06/07/16 17:14 Glucose (Glucose Chew Tab) 4-8 Tablets 4 Tabl... UD PRN PO 05/08/16 17:15 06/07/16 17:14 Dextrose (Dextrose 50% 50ML Syringe) 25-50ML OF 50% DW IV FOR... UD PRN IV 05/08/16 17:15 06/07/16 17:14 Glucagon (Glucagon Inj) 1 mg UD PRN SQ 05/08/16 17:15 06/07/16 17:14 Morphine Sulfate (MoRPHine SULFATE INJ) 4 mg Q6H PRN IV 05/08/16 22:30 05/22/16 22:29 05/11/16 10:53 4 MG Heparin Sodium (Porcine) (Heparin 100 Unit/ml 5ml Flush) 5 ml PRN PRN IV 05/08/16 23:45 06/07/16 23:44 05/11/16 10:53 5 ML Polyethylene 17 gm 17 gm BID PO 05/10/16 09:00 06/09/16 08:59 05/11/16 07:56 17 GM Methylprednisolone Sodium Succinate/ Syringe (Solu-Medrol IV/ Syringe) 0.64 ml @ 1.5 mls/min Q12 IV 05/10/16 09:00 06/09/16 08:59 05/11/16 08:28 1.5 MLS/MIN Ioversol (Optiray 320) 125 ml UD PRN IV 05/10/16 12:00 05/14/16 11:59 I & O: 24-Hour Column 05/11/16 07:59 Intake Total 770 ml Balance 770 ml Vital Signs: Date Time Temp Pulse Resp B/P Pulse Ox O2 Delivery O2 Flow Rate FiO2 05/11/16 16:00 Room Air 2.0 05/11/16 16:00 36.8 61 18 167/84 97 Room Air 05/11/16 08:00 99 Nasal Cannula 2.0 05/11/16 07:38 36.5 60 20 136/83 99 05/11/16 06:57 80 18 96 Nasal Cannula 2.0 05/11/16 00:17 37.1 61 18 109/73 95 CPAP 2.0 05/10/16 23:45 CPAP 05/10/16 20:00 80 18 96 Nasal Cannula 2.0 Laboratory Results: Last 24 Hours Test 05/10/16 20:28 05/11/16 07:43 05/11/16 11:18 05/11/16 16:26 Bedside Glucose 122 mg/dl 99 mg/dl 91 mg/dl 108 mg/dl
--- NOTE | 2016-05-11 18:32 | Progress Note ---
Internal Med Progress Note Date of Service: May 11, 2016. Provider Documentation: SUBJECTIVE: had some SOB , tachycardia with ambulation earlier symptom has resolved evaluated By Pulmonology no intervention indicated slow taper of steroids pt is asked to avoid environmental allergens at home to prevent asthma attack / COPD flare OBJECTIVE: Vital Signs-as noted below Exam: General-no sign of distress Eyes-sclera non icteric , PERRLA/EOMI ENT-NAD Neck-no thyromegaly , trachea midline Lungs-diminished breath sound, no wheeze , no rales , point tenderness in chest wall on rt upper Heart-regular S1/S2 Abdomen-soft, non tender Extremities-no rash , deformity Neuro-no focal neurological deficit Lab data as noted below. ASSESSMENT & PLAN: ASTHMA/COPD EXACERBATION - presented with increasing shortness of breath for 5 days - has had several admissions in the past for similar symptoms, most recently 04/10-04/13 - no hypoxia - clinically improved - continue Symbicort and Zafirlukast - hx of AAT deficiency, received IVIG monthly - pulmonary consult, input appreciated -started on taper dose of Oral prednisone -will need long taper -CTA of chest done : IMPRESSION: 1. No evidence of acute pulmonary embolism 2. No evidence of pathologic adenopathy 3. Elevation of the right hemidiaphragm 4. Right lower lobe bronchial wall thickening, mucous plugging, and atelectatic change STEROID INDUCED DM - hold oral agents, utilize SSI while hospitalized CHRONIC BACK PAIN - following with spine ortho as an outpatient, MRI scheduled for next week - continue home dose of [place] CHRONIC ANEMIA - hgb at baseline DVT PROPHYLAXIS - SQ Lovenox DISPOSITION pt is interested to go to SNF as having recurrent admission with in 30 days interested to go to [facility] in [place] -pt is around that area PT/OT eval social service consulted for discharge planning Vital Signs: Date Time Temp Pulse Resp B/P Pulse Ox O2 Delivery O2 Flow Rate FiO2 05/12/16 08:00 99 Nasal Cannula 2.0 05/12/16 07:59 36.7 54 16 121/72 99 Nasal Cannula 2.0 05/12/16 07:10 55 16 98 Nasal Cannula 2.0 05/11/16 23:35 Room Air CPAP 05/11/16 23:27 36.6 71 18 132/76 93 Room Air 05/11/16 20:10 67 16 96 Room Air 05/11/16 20:10 2.0 05/11/16 16:00 Room Air 2.0 05/11/16 16:00 36.8 61 18 167/84 97 Room Air Lab Results: Results Past 24 Hours Test 05/11/16 11:18 05/11/16 16:26 05/11/16 20:02 05/12/16 07:44 Range/Units Bedside Glucose 91 108 78 108 70-90 mg/dl
[2016-05-11] MEDS: DOCUSATE SODIUM 100 MG CAP PO SCH (20:58)
[2016-05-12 07:10] VITALS: PULSE 55; O2SAT 98
[2016-05-12] MEDS: ALBUT/IPRATROP 3MG/0.5MG NEB 3 ML VIAL INH SCH ×4 (07:16→19:46)
[2016-05-12] MEDS: CITALOPRAM 40 MG TAB PO SCH (07:40)
[2016-05-12] MEDS: ZAFIRLUKAST TAB 20 MG TAB PO SCH ×2 (07:40→20:58)
[2016-05-12] MEDS: DOXYCYCLINE HYCLATE 100 MG CAP PO SCH ×2 (07:40→20:59)
[2016-05-12] MEDS: CHOLECALCIFEROL 1000 INTER.UNIT TAB PO SCH ×2 (07:40→20:59)
[2016-05-12] MEDS: CYANOCOBALAMIN 500 MCG TAB (VIT B-12) PO SCH (07:40)
[2016-05-12] MEDS: BUDESONIDE/FORMOTEROL FUMARATE 160/4.5 60 PUFFS/INHALER INH SCH ×2 (07:40→20:58)
[2016-05-12] MEDS: PANTOprazole SOD 40 MG TAB PO SCH ×2 (07:40→20:59)
[2016-05-12] MEDS: POLYETHYLENE (MIRALAX) 17 GM PACK PO SCH ×2 (07:41→20:57)
[2016-05-12] MEDS: HYDROCODONE/ACETAMOPHEN 5/325MG TAB PO PRN (07:44)
[2016-05-12 07:59] VITALS: BP 121/72; PULSE 54; TEMP 36.7; O2SAT 99
[2016-05-12 08:00] VITALS: O2SAT 99
[2016-05-12] MEDS: INSULIN ASPART 100 UNITS/ML 3 ML PEN SC SCH ×4 (09:06→20:57)
--- NOTE | 2016-05-12 12:49 | Pulmonology Progress Note ---
Pulmonary Progress Note Date of Service May 12, 2016. Attending Dr. Leo Chua Subjective Patient notes no acute changes over the last 24 hours but continues to have dyspnea on exertion with ambulation. Objective Patient with no signs of respiratory insufficiency/distress at rest but at this time two-step is pending for evaluation of ambulation: Vital signs: SaO2: 92-99% 2 L nasal cannula Respiratory rate 16-20 Pulse 54-103 Assessment & Plan 55-year-old female with severe poorly controlled asthma/ACOS: #1 ACOS: Patient was moved to prednisone 20 mg 3 times a day today. Two-step is also pending at this time for further evaluation possibly requiring placement in pulmonary rehabilitation facility. We should also continue the Symbicort, DuoNeb's and initiate Spiriva at this time. #2 mental status: Is difficult to evaluate patient on. Physical and laboratory quantitative review. I do believe this patient would benefit from psychological evaluation. We'll speak with provider Frank Birch is he has a long-term relationship with our patient. Data Medications: Current Inpatient Medications Medications (Trade) Dose Ordered Sig/Kaye Route Start Time Stop Time Status Last Admin Dose Admin Enoxaparin Sodium (Lovenox Inj) 40 mg Q24H SQ 05/08/16 16:30 06/07/16 16:29 Acetaminophen (Tylenol Tab) 650 mg Q4H PRN PO 05/08/16 16:30 06/07/16 16:29 Ondansetron HCl (Zofran Inj) 4 mg Q6H PRN IV 05/08/16 16:30 06/07/16 16:29 Miscellaneous (Iv Fluids Completed) 1 ea PRN PRN N/A 05/08/16 16:30 05/08/17 16:29 Albuterol/ Ipratropium (Duoneb) 3 ml QIDR INH 05/08/16 20:00 06/07/16 19:59 05/12/16 07:16 3 ML Doxycycline Hyclate (Vibramycin Cap) 100 mg BID PO 05/08/16 16:30 05/18/16 16:29 05/12/16 07:40 100 MG Budesonide/ Formoterol Fumarate (Symbicort 160/ 4.5 Inh) 2 puffs BID INH 05/08/16 21:00 06/07/16 20:59 05/12/16 07:40 2 PUFFS Cholecalciferol (Vitamin D Tab) 1,000 inter.unit BID PO 05/08/16 21:00 06/07/16 20:59 05/12/16 07:40 1,000 INTER.UNIT Citalopram Hydrobromide (celeXA TAB) 40 mg QAM PO 05/09/16 09:00 06/08/16 08:59 05/12/16 07:40 40 MG Cyanocobalamin (Vitamin B-12 Tab) 1,000 mcg QAM PO 05/09/16 09:00 06/08/16 08:59 05/12/16 07:40 1,000 MCG Docusate Sodium (coLACE CAP) 200 mg HS PO 05/08/16 21:00 06/07/16 20:59 05/11/16 20:58 200 MG Acetaminophen/ Hydrocodone Bitart ([place] 5/325 Tab) `1-2 tabs for pain 1 tab ... Q6H PRN PO 05/08/16 17:00 05/22/16 16:59 05/12/16 07:44 2 TAB Lorazepam (Ativan Tab) 2 mg HS PRN PO 05/08/16 17:00 06/07/16 16:59 Lorazepam (Ativan Tab) 1 mg QAM PRN PO 05/08/16 17:00 06/07/16 16:59 Zafirlukast (Accolate Tab) 20 mg BID PO 05/08/16 21:00 06/07/16 20:59 05/12/16 07:40 20 MG Pantoprazole Sodium (Protonix Tab) 40 mg BID PO 05/08/16 21:00 06/07/16 20:59 05/12/16 07:40 40 MG Insulin Aspart (novoLOG ASPART) SLIDING SCALE If C... ACHS SC 05/08/16 21:00 06/07/16 20:59 05/12/16 12:22 2 UNITS Glucose (Glucose 40% Gel) 15-30 GRAMS 15 GRAMS... UD PRN PO 05/08/16 17:15 06/07/16 17:14 Glucose (Glucose Chew Tab) 4-8 Tablets 4 Tabl... UD PRN PO 05/08/16 17:15 06/07/16 17:14 Dextrose (Dextrose 50% 50ML Syringe) 25-50ML OF 50% DW IV FOR... UD PRN IV 05/08/16 17:15 06/07/16 17:14 Glucagon (Glucagon Inj) 1 mg UD PRN SQ 05/08/16 17:15 06/07/16 17:14 Morphine Sulfate (MoRPHine SULFATE INJ) 4 mg Q6H PRN IV 05/08/16 22:30 05/22/16 22:29 05/11/16 18:38 4 MG Heparin Sodium (Porcine) (Heparin 100 Unit/ml 5ml Flush) 5 ml PRN PRN IV 05/08/16 23:45 06/07/16 23:44 05/12/16 09:51 5 ML Polyethylene (Miralax Powder Packet) 17 gm BID PO 05/10/16 09:00 06/09/16 08:59 05/11/16 20:58 17 GM Ioversol (Optiray 320) 125 ml UD PRN IV 05/10/16 12:00 05/14/16 11:59 Prednisone (PredniSONE TAB) 20 mg TID PO 05/12/16 21:00 06/11/16 20:59 Vital Signs: Date Time Temp Pulse Resp B/P Pulse Ox O2 Delivery O2 Flow Rate FiO2 05/12/16 08:00 99 Nasal Cannula 2.0 05/12/16 07:59 36.7 54 16 121/72 99 Nasal Cannula 2.0 05/12/16 07:10 55 16 98 Nasal Cannula 2.0 05/11/16 23:35 Room Air CPAP 05/11/16 23:27 36.6 71 18 132/76 93 Room Air 05/11/16 20:10 67 16 96 Room Air 05/11/16 20:10 2.0 05/11/16 16:00 Room Air 2.0 05/11/16 16:00 36.8 61 18 167/84 97 Room Air Laboratory Results: Last 24 Hours Test 05/11/16 16:26 05/11/16 20:02 05/12/16 07:44 05/12/16 11:24 Bedside Glucose 108 mg/dl 78 mg/dl 108 mg/dl 57 mg/dl Test 05/12/16 11:47 Bedside Glucose 119 mg/dl
[2016-05-12] MEDS: MoRPHine SULFATE 4 MG/ML 1 ML CARP\\VIAL IV PRN (15:23)
[2016-05-12 15:26] VITALS: BP 116/74; PULSE 70; TEMP 36.9; O2SAT 95
[2016-05-12] MEDS: ENOXAPARIN 40 MG/0.4 ML SYR SQ SCH (15:31)
[2016-05-12 15:56] VITALS: PULSE 66; O2SAT 98
[2016-05-12] MEDS: DOCUSATE SODIUM 100 MG CAP PO SCH (20:57)
[2016-05-12] MEDS: LORAZEPAM 1 MG TAB PO PRN (21:33)
--- NOTE | 2016-05-12 21:35 | Progress Note ---
Internal Med Progress Note Date of Service: May 12, 2016. Provider Documentation: SUBJECTIVE: wants to go to rehab as having repeated admission in few weeks after discharge cough has improved afebrile OBJECTIVE: Vital Signs-as noted below Exam: General-no sign of distress Eyes-sclera non icteric , PERRLA/EOMI ENT-NAD Neck-no thyromegaly , trachea midline Lungs-diminished breath sound, no wheeze , no rales , Heart-regular S1/S2 Abdomen-soft, non tender Extremities-no rash , deformity Neuro-no focal neurological deficit Lab data as noted below. ASSESSMENT & PLAN: ASTHMA/COPD EXACERBATION - presented with increasing shortness of breath for 5 days - has had several admissions in the past for similar symptoms, most recently 04/10-04/13 - no hypoxia - clinically improved - continue Symbicort and Singulari - hx of AAT deficiency, received IVIG monthly - pulmonary consult, input appreciated -started on taper dose of Oral prednisone -will need long taper -CTA of chest done : IMPRESSION: 1. No evidence of acute pulmonary embolism 2. No evidence of pathologic adenopathy 3. Elevation of the right hemidiaphragm 4. Right lower lobe bronchial wall thickening, mucous plugging, and atelectatic change STEROID INDUCED DM - hold oral agents, utilize SSI while hospitalized oral agents can be resumed on discharge CHRONIC BACK PAIN - following with spine ortho as an outpatient, MRI scheduled for next week - continue home dose of [place] CHRONIC ANEMIA - hgb at baseline DVT PROPHYLAXIS - SQ Lovenox DISPOSITION PT/OT eval requested pt ambulated > 200 ft does not qualify for rehab return to home with home health when medically stable Vital Signs: Date Time Temp Pulse Resp B/P Pulse Ox O2 Delivery O2 Flow Rate FiO2 05/13/16 23:10 64 97 2.0 05/13/16 19:20 61 16 98 Room Air 05/13/16 16:00 Room Air 2.0 05/13/16 15:29 36.6 66 20 113/74 95 Room Air 05/13/16 08:44 36.6 59 18 125/83 96 Room Air 05/13/16 08:00 96 Room Air 05/13/16 07:49 63 14 99 Room Air 05/13/16 00:00 CPAP 05/12/16 23:28 36.8 69 20 149/88 99 Room Air Lab Results: Results Past 24 Hours Test 05/13/16 07:45 05/13/16 11:32 05/13/16 16:22 05/13/16 20:18 Range/Units Bedside Glucose 113 81 108 154 70-90 mg/dl
[2016-05-12 23:28] VITALS: BP 149/88; PULSE 69; TEMP 36.8; O2SAT 99
[2016-05-13] VITALS (7 sets, daily range): BP systolic 113–125; BP diastolic 71–83; PULSE 59–72; TEMP 36.6–36.8; O2SAT 95–99
[2016-05-13] MEDS: BUDESONIDE/FORMOTEROL FUMARATE 160/4.5 60 PUFFS/INHALER INH SCH ×2 (07:45→21:08)
[2016-05-13] MEDS: TIOTROPIUM BROMIDE 5 PUFF/90 MCG INH INH SCH (07:45)
[2016-05-13] MEDS: CITALOPRAM 40 MG TAB PO SCH (07:45)
[2016-05-13] MEDS: CYANOCOBALAMIN 500 MCG TAB (VIT B-12) PO SCH (07:46)
[2016-05-13] MEDS: CHOLECALCIFEROL 1000 INTER.UNIT TAB PO SCH ×2 (07:46→21:08)
[2016-05-13] MEDS: ZAFIRLUKAST TAB 20 MG TAB PO SCH ×2 (07:46→21:08)
[2016-05-13] MEDS: DOXYCYCLINE HYCLATE 100 MG CAP PO SCH ×2 (07:46→21:08)
[2016-05-13] MEDS: PANTOprazole SOD 40 MG TAB PO SCH ×2 (07:46→21:08)
[2016-05-13] MEDS: ALBUT/IPRATROP 3MG/0.5MG NEB 3 ML VIAL INH SCH ×4 (07:49→19:20)
[2016-05-13] MEDS: POLYETHYLENE (MIRALAX) 17 GM PACK PO SCH ×2 (07:51→21:00)
[2016-05-13] MEDS: HYDROCODONE/ACETAMOPHEN 5/325MG TAB PO PRN ×2 (07:51→21:12)
[2016-05-13] MEDS: INSULIN ASPART 100 UNITS/ML 3 ML PEN SC SCH ×4 (09:02→21:00)
--- NOTE | 2016-05-13 11:36 | Pulmonology Progress Note ---
Pulmonary Progress Note Date of Service May 13, 2016. Attending Cable Subjective Feeling improved today. Ambulating throughout hallway without respiratory discomfort. Some difficulty sleeping. Continued left- back pain (MRI arranged for this week) but otherwise no chest or abdominal pain. Expressed willingness to go to rehab. Objective 55-yo female admitted to [facility] ER 05/08/16 with back pain and exacerbation of reactive airway disease. Prior records were reviewed. PMHx includes: severe asthma with frequent hospital admissions and BT x 3 - [id number], h/o provoked pulmonary embolism, h/ o acquired immunoglobulin deficiency. h/o frequent prednisone use with adrenal insufficiency, h/o T11 compression fracture, diverticulosis, former tobacco (5- pack year, quit 2014), sleep apnea (on CPAP). Patient admitted through [facility] ER with dyspnea and back pain. She had been recently admitted and discharged 04/13/16 on slow steroid taper. Despite 10mg prednisone dosing, her respiratory symptoms worsened. She does live in a small apartment with concern for mold/allergens. CXR 04/28/16 notable for mild interstitial thickening. D-dimer 05/10: + and CTA 05/10/16 consistent with RLL bronchial wall thickening, mucous plugging and atelectasis. She was treated with nebulized bronchodilators, IV steroid, and currently on Doxycycline. Today: - 96-99% RA - Slept on CPAP - Afebrile, HD stable - Current prednisone: 60mg TID Physical Exam: Constitutional: Well developed obese female lying in bed. No acute distress. Head: + facial symmetry Eyes: EOMi, PERRLA, no injection Mouth: moist mucous membranes. No erythema. Vocal hoarseness Respiratory: Transient rale on left. Scant end-expiratory wheeze right base. No rhonchi. CV: RRR, no MRG. Warm and perfused peripherally. +2 RP and DPs. MSK/Extremities; Moving and developed symmetrically. No peripheral edema or erythema Neurologic; A&O. Good data recall. Appropriate affect. Assessment & Plan 55-year-old female with severe poorly controlled asthma/ACOS complicated by reflux disease and allergies: Asthma/ ACOS: - Continue the Symbicort, DuoNeb's and Spiriva - Continue anti-reflux and anti-allergy regimen - Slow prednisone taper: decrease by 5mg Q 3-5days and hold at 15mg or otherwise directed as outpatient - Agree for consideration of rehab focus on pulmonary given recurrent admissions, generalized deconditioning and additional benefit from environmental control Data Medications: Current Inpatient Medications Medications (Trade) Dose Ordered Sig/Kaye Route Start Time Stop Time Status Last Admin Dose Admin Enoxaparin Sodium (Lovenox Inj) 40 mg Q24H SQ 05/08/16 16:30 06/07/16 16:29 Acetaminophen (Tylenol Tab) 650 mg Q4H PRN PO 05/08/16 16:30 06/07/16 16:29 Ondansetron HCl (Zofran Inj) 4 mg Q6H PRN IV 05/08/16 16:30 06/07/16 16:29 Miscellaneous (Iv Fluids Completed) 1 ea PRN PRN N/A 05/08/16 16:30 05/08/17 16:29 Albuterol/ Ipratropium (Duoneb) 3 ml QIDR INH 05/08/16 20:00 06/07/16 19:59 05/13/16 07:49 3 ML Doxycycline Hyclate (Vibramycin Cap) 100 mg BID PO 05/08/16 16:30 05/18/16 16:29 05/13/16 07:46 100 MG Budesonide/ Formoterol Fumarate (Symbicort 160/ 4.5 Inh) 2 puffs BID INH 05/08/16 21:00 06/07/16 20:59 05/13/16 07:45 2 PUFFS Cholecalciferol (Vitamin D Tab) 1,000 inter.unit BID PO 05/08/16 21:00 06/07/16 20:59 05/13/16 07:46 1,000 INTER.UNIT Citalopram Hydrobromide (celeXA TAB) 40 mg QAM PO 05/09/16 09:00 06/08/16 08:59 05/13/16 07:45 40 MG Cyanocobalamin (Vitamin B-12 Tab) 1,000 mcg QAM PO 05/09/16 09:00 06/08/16 08:59 05/13/16 07:46 1,000 MCG Docusate Sodium (coLACE CAP) 200 mg HS PO 05/08/16 21:00 06/07/16 20:59 05/11/16 20:58 200 MG Acetaminophen/ Hydrocodone Bitart ([place] 5/325 Tab) `1-2 tabs for pain 1 tab ... Q6H PRN PO 05/08/16 17:00 05/22/16 16:59 05/13/16 07:51 1 TAB Lorazepam (Ativan Tab) 2 mg HS PRN PO 05/08/16 17:00 06/07/16 16:59 Lorazepam (Ativan Tab) 1 mg QAM PRN PO 05/08/16 17:00 06/07/16 16:59 05/12/16 21:33 1 MG Zafirlukast (Accolate Tab) 20 mg BID PO 05/08/16 21:00 06/07/16 20:59 05/13/16 07:46 20 MG Pantoprazole Sodium (Protonix Tab) 40 mg BID PO 05/08/16 21:00 06/07/16 20:59 05/13/16 07:46 40 MG Insulin Aspart (novoLOG ASPART) SLIDING SCALE If C... ACHS SC 05/08/16 21:00 06/07/16 20:59 05/13/16 09:02 4 UNITS Glucose (Glucose 40% Gel) 15-30 GRAMS 15 GRAMS... UD PRN PO 05/08/16 17:15 06/07/16 17:14 Glucose (Glucose Chew Tab) 4-8 Tablets 4 Tabl... UD PRN PO 05/08/16 17:15 06/07/16 17:14 Dextrose (Dextrose 50% 50ML Syringe) 25-50ML OF 50% DW IV FOR... UD PRN IV 05/08/16 17:15 06/07/16 17:14 Glucagon (Glucagon Inj) 1 mg UD PRN SQ 05/08/16 17:15 06/07/16 17:14 Morphine Sulfate (MoRPHine SULFATE INJ) 4 mg Q6H PRN IV 05/08/16 22:30 05/22/16 22:29 05/12/16 15:23 4 MG Heparin Sodium (Porcine) (Heparin 100 Unit/ml 5ml Flush) 5 ml PRN PRN IV 05/08/16 23:45 06/07/16 23:44 05/12/16 09:51 5 ML Polyethylene (Miralax Powder Packet) 17 gm BID PO 05/10/16 09:00 06/09/16 08:59 05/11/16 20:58 17 GM Ioversol (Optiray 320) 125 ml UD PRN IV 05/10/16 12:00 05/14/16 11:59 Prednisone (PredniSONE TAB) 20 mg TID PO 05/12/16 21:00 06/11/16 20:59 05/13/16 07:46 20 MG Tiotropium [place] (Spiriva Handihaler Inhaler) 1 puff QAM INH 05/13/16 09:00 06/12/16 08:59 05/13/16 07:45 1 PUFF I & O: 24-Hour Column 05/13/16 08:00 Output Total 0 ml Balance 0 ml Vital Signs: Date Time Temp Pulse Resp B/P Pulse Ox O2 Delivery O2 Flow Rate FiO2 05/13/16 08:44 36.6 59 18 125/83 96 Room Air 05/13/16 08:00 96 Room Air 05/13/16 07:49 63 14 99 Room Air 05/13/16 00:00 CPAP 05/12/16 23:28 36.8 69 20 149/88 99 Room Air 05/12/16 16:00 Nasal Cannula 2.0 05/12/16 15:56 66 14 98 Nasal Cannula 2.0 05/12/16 15:26 36.9 70 18 116/74 95 Room Air Laboratory Results: Last 24 Hours Test 05/12/16 11:24 05/12/16 11:47 05/12/16 16:15 05/12/16 19:53 Bedside Glucose 57 mg/dl 119 mg/dl 93 mg/dl 118 mg/dl Test 05/13/16 07:45 Bedside Glucose 113 mg/dl
[2016-05-13] MEDS: MoRPHine SULFATE 4 MG/ML 1 ML CARP\\VIAL IV PRN (12:55)
[2016-05-13] MEDS: ENOXAPARIN 40 MG/0.4 ML SYR SQ SCH (15:51)
--- NOTE | 2016-05-13 20:56 | Progress Note ---
Internal Med Progress Note Date of Service: May 13, 2016. Provider Documentation: SUBJECTIVE: walking in hallway with PT no SOB noted has non productive cough no fever or chills OBJECTIVE: Vital Signs-as noted below Exam: General-no sign of distress Eyes-sclera non icteric , PERRLA/EOMI ENT-NAD Neck-no thyromegaly , trachea midline Lungs-diminished breath sound, no wheeze , no rales , point tenderness in chest wall on rt upper Heart-regular S1/S2 Abdomen-soft, non tender Extremities-no rash , deformity Neuro-no focal neurological deficit Lab data as noted below. ASSESSMENT & PLAN: ASTHMA/COPD EXACERBATION - presented with increasing shortness of breath for 5 days - has had several admissions in the past for similar symptoms, most recently 04/10-04/13 - no hypoxia - clinically improved - continue Symbicort and Singulari - hx of AAT deficiency, received IVIG monthly - pulmonary consult, input appreciated -started on taper dose of Oral prednisone -ON 60 MG po daily as per Pulmonology slow taper decrease by 5 mg every 3-5 days cont at 15 mg PO daily till evaluated by Pulmonology in office -CTA of chest done : IMPRESSION: 1. No evidence of acute pulmonary embolism 2. No evidence of pathologic adenopathy 3. Elevation of the right hemidiaphragm 4. Right lower lobe bronchial wall thickening, mucous plugging, and atelectatic change STEROID INDUCED DM - hold oral agents, utilize SSI while hospitalized oral agents can be resumed on discharge CHRONIC BACK PAIN - following with spine ortho as an outpatient, MRI scheduled for next week - continue home dose of [place] CHRONIC ANEMIA - hgb at baseline DVT PROPHYLAXIS - SQ Lovenox DISPOSITION PT/OT eval requested pt ambulated > 200 ft does not qualify for rehab return to home with home health TOMORROW Vital Signs: Date Time Temp Pulse Resp B/P Pulse Ox O2 Delivery O2 Flow Rate FiO2 05/13/16 23:10 64 97 2.0 05/13/16 19:20 61 16 98 Room Air 05/13/16 16:00 Room Air 2.0 05/13/16 15:29 36.6 66 20 113/74 95 Room Air 05/13/16 08:44 36.6 59 18 125/83 96 Room Air 05/13/16 08:00 96 Room Air 05/13/16 07:49 63 14 99 Room Air 05/13/16 00:00 CPAP Lab Results: Results Past 24 Hours Test 05/13/16 07:45 05/13/16 11:32 05/13/16 16:22 05/13/16 20:18 Range/Units Bedside Glucose 113 81 108 154 70-90 mg/dl
[2016-05-13] MEDS: DOCUSATE SODIUM 100 MG CAP PO SCH (21:00)
[2016-05-13] MEDS: LORAZEPAM 1 MG TAB PO PRN (21:11)
[2016-05-13] MEDS ORDERED: SPRIN INH (23:23)
--- NOTE | 2016-05-13 23:26 | Discharge Instructions ---
Discharge Instructions Admission Reason for Admission: Asthma Exacerbation Discharge Discharge Diagnosis / Problem: COPD EXACERBATION Discharge Goals Goal(s): Improve disease control, Diagnostic testing, Therapeutic intervention Activity Recommendations Activity Limitations: resume your previous activity . Instructions / Follow-Up Instructions / Follow-Up HOSPITAL FOLLOW UP WITH CRISTOPHER Santana ON 05/21/2016 @1:40 PM [facility] Current Hospital Diet Patient's current hospital diet: Diabetes Type 2 Diet Discharge Diet Recommended Diet: Diabetes Type 2 Diet Pending Studies Studies pending at discharge: no Medical Emergencies . Who to Call and When: Medical Emergencies: If at any time you feel your situation is an emergency, please call 911 immediately. . Non-Emergent Contact Non-Emergency issues call your: Primary Care Provider . . "Provider Documentation" section prepared by Makenna Hart. VTE Core Measure Inpt VTE Proph given/why not?: Unfractionated heparin SQ
[2016-05-13] MEDS ORDERED: PRED20TA2 PO (23:33)
[2016-05-14 07:22] VITALS: BP 110/69; PULSE 63; TEMP 36.7; O2SAT 98
[2016-05-14] MEDS: ALBUT/IPRATROP 3MG/0.5MG NEB 3 ML VIAL INH SCH ×2 (07:49→11:35)
[2016-05-14] MEDS: TIOTROPIUM BROMIDE 5 PUFF/90 MCG INH INH SCH (08:45)
[2016-05-14] MEDS: ZAFIRLUKAST TAB 20 MG TAB PO SCH (08:46)
[2016-05-14] MEDS: BUDESONIDE/FORMOTEROL FUMARATE 160/4.5 60 PUFFS/INHALER INH SCH (08:46)
[2016-05-14] MEDS: CITALOPRAM 40 MG TAB PO SCH (08:47)
[2016-05-14] MEDS: POLYETHYLENE (MIRALAX) 17 GM PACK PO SCH (08:47)
[2016-05-14] MEDS: PANTOprazole SOD 40 MG TAB PO SCH (08:47)
[2016-05-14] MEDS: DOXYCYCLINE HYCLATE 100 MG CAP PO SCH (08:48)
[2016-05-14] MEDS: CYANOCOBALAMIN 500 MCG TAB (VIT B-12) PO SCH (08:49)
[2016-05-14] MEDS: CHOLECALCIFEROL 1000 INTER.UNIT TAB PO SCH (08:49)
[2016-05-14] MEDS: INSULIN ASPART 100 UNITS/ML 3 ML PEN SC SCH (08:54)
[2016-05-14 10:56] VITALS: BP 110/69; PULSE 63; TEMP 36.7; O2SAT 98
--- NOTE | 2016-05-14 10:59 | Progress Note ---
Medicine Progress Note Date & Time of Visit: May 14, 2016 at 10:54. Subjective patient seen resting in bed, comfortable states she feels well overall denies dyspnea, cough, chest pain ambulates with no problems states she is ready and would like to be discharged today Objective Last 8 Hrs Date Time Temp Pulse Resp B/P Pulse Ox O2 Delivery O2 Flow Rate FiO2 05/14/16 07:44 Room Air 05/14/16 07:22 36.7 63 18 110/69 98 CPAP Physical Exam: General- oriented x 3, not in distress, speaks in sentences with no effort Head- atraumatic Eyes- anicteric Neck- supple, no JVD Lungs- clear to auscultation bilaterally Heart- normal rate, regular rhythm; no murmurs Abdomen- normal bowel sounds, soft, nontender Extremities- no pretibial edema Neuro- alert, oriented x 3; no gross focal deficits Skin- warm & dry Laboratory Results: Last 24 Hours Test 05/13/16 11:32 05/13/16 16:22 05/13/16 20:18 05/14/16 07:03 Bedside Glucose 81 mg/dl 108 mg/dl 154 mg/dl 118 mg/dl Assessment & Plan ASTHMA/COPD EXACERBATION - hx of AAT deficiency, received IVIG monthly - presented with increasing shortness of breath for 5 days - has had several admissions in the past for similar symptoms, most recently 04/10-04/13 - no hypoxia --CTA of chest done : IMPRESSION: 1. No evidence of acute pulmonary embolism 2. No evidence of pathologic adenopathy 3. Elevation of the right hemidiaphragm 4. Right lower lobe bronchial wall thickening, mucous plugging, and atelectatic change - placed on IV steroids, Nebs, Spiriva, PO Doxycycline Symbicort and Singulair continued - clinically improved - Pulmonary service c/o PA Sheila Hutton consulted started on taper dose of Oral prednisone -ON 60 MG po daily as per Pulmonology slow taper decrease by 5 mg every 3-5 days cont at 15 mg PO daily till evaluated by Pulmonology in office, continue usual bronchodilators STEROID INDUCED DM - resume oral med on discharge CHRONIC BACK PAIN - following with spine ortho as an outpatient, MRI scheduled - continue home dose of [place] CHRONIC ANEMIA - hgb at baseline DVT PROPHYLAXIS - SQ Lovenox DISPOSITION PT/OT eval requested pt ambulated > 200 ft does not qualify for rehab return to home with home health ff up with PCP in 3-5 days, ff up with Pulmonary in 1 week Current Inpatient Medications: Current Inpatient Medications Medications (Trade) Dose Ordered Sig/Kaye Route Start Time Stop Time Status Last Admin Dose Admin Enoxaparin Sodium (Lovenox Inj) 40 mg Q24H SQ 05/08/16 16:30 06/07/16 16:29 Acetaminophen (Tylenol Tab) 650 mg Q4H PRN PO 05/08/16 16:30 06/07/16 16:29 Ondansetron HCl (Zofran Inj) 4 mg Q6H PRN IV 05/08/16 16:30 06/07/16 16:29 Miscellaneous (Iv Fluids Completed) 1 ea PRN PRN N/A 05/08/16 16:30 05/08/17 16:29 Albuterol/ Ipratropium (Duoneb) 3 ml QIDR INH 05/08/16 20:00 06/07/16 19:59 05/13/16 19:20 3 ML Doxycycline Hyclate (Vibramycin Cap) 100 mg BID PO 05/08/16 16:30 05/18/16 16:29 05/14/16 08:48 100 MG Budesonide/ Formoterol Fumarate (Symbicort 160/ 4.5 Inh) 2 puffs BID INH 05/08/16 21:00 06/07/16 20:59 05/14/16 08:46 2 PUFFS Cholecalciferol (Vitamin D Tab) 1,000 inter.unit BID PO 05/08/16 21:00 06/07/16 20:59 05/14/16 08:49 1,000 INTER.UNIT Citalopram Hydrobromide (celeXA TAB) 40 mg QAM PO 05/09/16 09:00 06/08/16 08:59 05/14/16 08:47 40 MG Cyanocobalamin (Vitamin B-12 Tab) 1,000 mcg QAM PO 05/09/16 09:00 06/08/16 08:59 05/14/16 08:49 1,000 MCG Docusate Sodium (coLACE CAP) 200 mg HS PO 05/08/16 21:00 06/07/16 20:59 05/11/16 20:58 200 MG Acetaminophen/ Hydrocodone Bitart ([place] 5/325 Tab) `1-2 tabs for pain 1 tab ... Q6H PRN PO 05/08/16 17:00 05/22/16 16:59 05/13/16 21:12 1 TAB Lorazepam (Ativan Tab) 2 mg HS PRN PO 05/08/16 17:00 06/07/16 16:59 Lorazepam (Ativan Tab) 1 mg QAM PRN PO 05/08/16 17:00 06/07/16 16:59 05/13/16 21:11 1 MG Zafirlukast (Accolate Tab) 20 mg BID PO 05/08/16 21:00 06/07/16 20:59 05/14/16 08:46 20 MG Pantoprazole Sodium (Protonix Tab) 40 mg BID PO 05/08/16 21:00 06/07/16 20:59 05/14/16 08:47 40 MG Insulin Aspart (novoLOG ASPART) SLIDING SCALE If C... ACHS SC 05/08/16 21:00 06/07/16 20:59 05/14/16 08:54 2 UNITS Glucose (Glucose 40% Gel) 15-30 GRAMS 15 GRAMS... UD PRN PO 05/08/16 17:15 06/07/16 17:14 Glucose (Glucose Chew Tab) 4-8 Tablets 4 Tabl... UD PRN PO 05/08/16 17:15 06/07/16 17:14 Dextrose (Dextrose 50% 50ML Syringe) 25-50ML OF 50% DW IV FOR... UD PRN IV 05/08/16 17:15 06/07/16 17:14 Glucagon (Glucagon Inj) 1 mg UD PRN SQ 05/08/16 17:15 06/07/16 17:14 Morphine Sulfate (MoRPHine SULFATE INJ) 4 mg Q6H PRN IV 05/08/16 22:30 05/22/16 22:29 05/13/16 12:55 4 MG Heparin Sodium (Porcine) (Heparin 100 Unit/ml 5ml Flush) 5 ml PRN PRN IV 05/08/16 23:45 06/07/16 23:44 05/13/16 12:54 5 ML Polyethylene (Miralax Powder Packet) 17 gm BID PO 05/10/16 09:00 1/29/17 08:59 05/11/16 20:58 17 GM Ioversol (Optiray 320) 125 ml UD PRN IV 05/10/16 12:00 05/14/16 11:59 Prednisone (PredniSONE TAB) 20 mg TID PO 05/12/16 21:00 06/11/16 20:59 05/14/16 08:47 20 MG Tiotropium [place] (Spiriva Handihaler Inhaler) 1 puff QAM INH 05/13/16 09:00 06/12/16 08:59 05/14/16 08:45 1 PUFF
--- NOTE | 2016-05-14 11:03 | Discharge Summary ---
Discharge Summary Admission Date: May 08, 2016 at 16:21 Discharge Date: May 14, 2016 Discharge Disposition: Home with services Principal Diagnosis: ASTHMA/COPD EXACERBATION Secondary Diagnoses/Problems: Please refer to hospital course below. Consultations: Pulmonary - Dr. Chua/ROSI Hutton Pending Studies/Follow-Up: Please refer to hospital course below. Medication Reconciliation New Medications: Prednisone (Prednisone Tab) 20 Mg Tab 20 MG PO UD for 30 Days, #120 TAB 5 Refills 60 mg for 3 days 50 mg for 3 days 40 mg for 3 days 30 mg for 3 days 20 mg for 3 days 15 mg for 3 days Tiotropium [place] (Spiriva Handihaler) 5 Puff/90 Mcg Aerp 1 PUFF INH QAM for 30 Days, #30 INHALER 5 Refills Continued Medications: Albuterol Sulfate (Proair Hfa) 108 Mcg/ Aer 1-2 PUFFS INH Q4-6HRS PRN for Rescue-Asthma Symptoms USE PRN-BRING ALONG DAY OF SURGERY Alendronate Sodium (Fosamax) 70 Mg Tab 70 MG PO WK, TAB TAKE THIS MEDICATION EVERY FRIDAY. Budesonide/Formoterol Fumarate (Symbicort 160/4.5 Inhaler ) Aero 2 PUFFS INH BID, INHALER Cholecalciferol (Vitamin D) 1,000 Inter.unit Tab 1000 INTER.UNIT PO BID, TAB Citalopram Hydrobromide (Celexa) 40 Mg Tab 40 MG PO QAM Cyanocobalamin (Vitamin B-12) 1,000 Mcg Tab 1000 MCG PO QAM, TAB Docusate Sodium (Colace) 100 Mg Cap 200 MG PO HS, CAP Epinephrine (Epipen 2-Deshawn) 0.3 Mg Inj 0.3 MG IM UD PRN for ALLERGIC REACTION Furosemide (Furosemide) 40 Mg Tab 40 MG PO UD PRN for Weight Gain Glimepiride (Glimepiride) 1 Mg Tab 1 TAB PO DAILY PRN for glucose > 110 for 30 Days, #30 TAB 5 Refills Hydrocodone/Acetaminophen 5MG/325MG ([place] 5MG/325MG) Tab 1-2 TABS PO Q4-6H PRN for Pain, TAB Immune Globulin (Human) Iv (Privigen) 5 Gm/50 Ml Inj Unknown Dose IV MONTHLY Ipratropium-Albuterol (Duoneb) 3 Ml Nebu 1 TREATMENT INH Q4H PRN for PRN, INHA Lorazepam (Ativan) 1 Mg Tab 1 MG PO QAM PRN for Anxiety, TAB Lorazepam (Lorazepam) 1 Mg Tab 2 MG PO HS PRN for Anxiety Omeprazole (Prilosec) 20 Mg Cap 20 MG PO BID Oxygen (Oxygen) Gas 2 LITERS NA PRN Polyethylene Glycol 3350 (Miralax) 1 Pow Pow 17 GM PO DAILY PRN for Constipation, #255 GM Potassium Chloride (Potassium Chloride Er) 10 Meq Tab 10 MEQ PO BID PRN for If Furosemide was taken. Zafirlukast (Zafirlukast) 20 Mg Tab 20 MG PO BID Discontinued Medications: Prednisone (Prednisone) 20 Mg Tab 10 MG PO DAILY, #7 Admission Information HPI (per Admitting provider): 55 year old female who presents to the ER with shortness of breath. Patient has underlying asthma/COPD and has had frequent admissions for exacerbations. Most recent admission was 04/09-/04/13. Patient underwent bronchoscopy during that admission that was unremarkable. Patient reports increasing shortness of breath for the past 5 days. She denies cough or sputum production. She noted wheezing. She was using nebulizers every 4 hours without any relief. She denies fever and chills. No chest pain or pressure. She denies lightheadedness, dizziness, diaphoresis, or syncopal events. No abdominal pain, nausea, vomiting, or diarrhea. She denies any urinary symptoms. In the ER, patient was saturating well on room air. She was treated with nebulizer, solumedrol, and Zofran. She was also given Dilaudid for chronic back pain. Physical Exam (per Admitting): General Appearance: no apparent distress Head: normocephalic Eyes: normal inspection ENT: hearing grossly normal Neck: supple, no JVD Respiratory/Chest: no respiratory distress, + decreased breath sounds ( minimally BL), + wheezing (audible, however no wheezing ausculated in lung mccain) Cardiovascular: regular rate, rhythm, no edema, normal peripheral pulses Abdomen/GI: normal bowel sounds, non tender, soft Extremities/Musculoskelatal: normal inspection, no calf tenderness Neurologic/Psych: no motor/sensory deficits, alert, normal mood/affect, oriented x 3 Skin: normal color, warm/dry Hospital Course ASTHMA/COPD EXACERBATION - hx of AAT deficiency, received IVIG monthly - presented with increasing shortness of breath for 5 days - has had several admissions in the past for similar symptoms, most recently 04/10-04/13 - no hypoxia --CTA of chest done : IMPRESSION: 1. No evidence of acute pulmonary embolism 2. No evidence of pathologic adenopathy 3. Elevation of the right hemidiaphragm 4. Right lower lobe bronchial wall thickening, mucous plugging, and atelectatic change - placed on IV steroids, Nebs, Spiriva, PO Doxycycline Symbicort and Singulair continued - clinically improved - Pulmonary service c/o PA Sheila Hutton consulted started on taper dose of Oral prednisone -ON 60 MG po daily as per Pulmonology slow taper decrease by 5 mg every 3-5 days cont at 15 mg PO daily till evaluated by Pulmonology in office, continue usual bronchodilators STEROID INDUCED DM - resume oral med on discharge CHRONIC BACK PAIN - following with spine ortho as an outpatient, MRI scheduled - continue home dose of [place] CHRONIC ANEMIA - hgb at baseline DVT PROPHYLAXIS - SQ Lovenox DISPOSITION PT/OT eval requested pt ambulated > 200 ft does not qualify for rehab return to home with home health ff up with PCP in 3-5 days, ff up with Pulmonary in 1 week Total time spent on discharge = 25 minutes This includes examination of the patient, discharge planning, medication reconciliation, and communication with other providers. Discharge Instructions Discharge Instructions Admission Reason for Admission: Asthma Exacerbation Discharge Discharge Diagnosis / Problem: COPD EXACERBATION Discharge Goals Goal(s): Improve disease control, Diagnostic testing, Therapeutic intervention Activity Recommendations Activity Limitations: resume your previous activity . Instructions / Follow-Up Instructions / Follow-Up HOSPITAL FOLLOW UP WITH CRISTOPHER Santana ON 05/21/2016 @1:40 PM [facility] Current Hospital Diet Patient's current hospital diet: Diabetes Type 2 Diet Discharge Diet Recommended Diet: Diabetes Type 2 Diet Pending Studies Studies pending at discharge: no Medical Emergencies . Who to Call and When: Medical Emergencies: If at any time you feel your situation is an emergency, please call 911 immediately. . Non-Emergent Contact Non-Emergency issues call your: Primary Care Provider . . "Provider Documentation" section prepared by Makenna Hart. VTE Core Measure Inpt VTE Proph given/why not?: Unfractionated heparin SQ
--- NOTE | 2016-05-14 12:27 | PROGRESS NOTE ---
DATE: 05/14/2016 DATE: 05/14/2016. PROBLEM LIST: Includes asthma with exacerbation, acid reflux and allergies. SUBJECTIVE: The patient reports that she is doing well today. She actually feels quite good. She is being discharged home today. There was some talk of her going to rehab for a short period of time. Unfortunately, she did not qualify for a short term rehab stay. She is in the process of getting physical therapy set up for home. She does have an MRI later today of her back and is following with Dr. Sadler. She denies any other problems with her breathing. No significant cough or wheeze. No chest congestion or tightness. No chest heaviness. She feels that her breathing is back to her normal. She has no chest pain or painful respirations. She has no abdominal pain, no nausea or vomiting, no indigestion or heartburn. No difficulty with her bowels. Overall feeling good. OBJECTIVE: GENERAL: The patient is a 55-year-old white female in no acute distress. She is alert and oriented x3. Mood is good. Affect is good. VITAL SIGNS: Temp 36.7, pulse 63, respiration 18, blood pressure is 110/69, pulse ox 98% on room air. HEAD, EYES, EARS, NOSE, AND THROAT: Normocephalic, atraumatic. Pupils equal, round and reactive to light and accommodation. Extraocular movements are intact. [place] moist gingival and buccal mucosa. NECK: Thick, supple. No mass. No adenopathy. No bruit. CHEST: Diminished breath sounds bilaterally; however, chest is clear. There is no wheeze, rale or rhonchi noted. CARDIOVASCULAR: Regular rate and rhythm. No murmurs, gallops or rubs. ABDOMEN: Soft, nontender. No guarding, rigidity or organomegaly. EXTREMITIES: No erythema or edema. NEUROLOGIC: Cranial nerves II through XII are intact. No focal deficit noted. No new lab data. No new imaging data. IMPRESSION: This is a 55-year-old female we follow in the office for asthma, who has undergone bronchial thermoplasty in the past. At this point, she seems to be doing well. She does have gastroesophageal reflux disease which complicates her breathing. She also has lumbar disease, which I think is contributing to her breathing somewhat as well. She is being followed with this by Dr. Sadler. At this point, I would recommend her to be discharged on prednisone 20 mg 3 times daily time. Continue that until she comes into the office. We will follow her up, I believe she has an appointment next week. She is to contact the office if there are any questions or problem.
[2016-06-22] MEDS ORDERED: PRED10TA PO (09:38)
[2016-07-19] MEDS ORDERED: PRD20 PO ×2 (11:30)
[2016-07-19] MEDS ORDERED: XPNINS1255 INH (11:30)
[2016-07-19] MEDS ORDERED: METO5TAB3 PO (11:30)
[2016-08-06] MEDS ORDERED: PRED10TA PO (08:31)
[2016-08-23] MEDS ORDERED: BROM0.0911 OPR (08:55)
[2016-08-23] MEDS ORDERED: PRED1SUS OPR (08:55)
[2016-10-30] MEDS ORDERED: FLX5 PO (11:47)
[2016-11-27] MEDS ORDERED: IPRASOL4 NEB (08:31)
[2016-11-27] MEDS ORDERED: PRED10TA PO ×2 (15:15→18:42)
[2016-11-29] MEDS ORDERED: AZIT-57 PO (09:07)
[2016-11-29] MEDS ORDERED: PRD20 PO (09:07)
[2017-02-24] MEDS ORDERED: OXGN (14:39)
[2017-02-24] MEDS ORDERED: CMD5 PO (14:39)
[2017-02-24] MEDS ORDERED: PRED10TA PO (14:39)
[2017-02-24] MEDS ORDERED: ENOX30IN4 SQ (14:40)
[2017-02-24] MEDS ORDERED: AZIT-60 PO (14:52)
[2017-04-08] MEDS ORDERED: VNTHFA/IN INH (08:31)
[2017-04-15] MEDS ORDERED: BNT20 PO (16:18)
[2017-04-15] MEDS ORDERED: PRT40 PO (16:18)
[2017-04-15] MEDS ORDERED: FRRS300 PO (16:18)
[2017-04-15] MEDS ORDERED: PRD10 PO (16:18)
[2017-04-15] MEDS ORDERED: MRLP17 PO (16:18)
== END 2016-05-14 12:29 | disposition home health service (06) ==
LOC: ENRESERVTM → ENRESERVDT → EDBD 12:38 → C.EDC 12:38 → C.MS2W 16:21
PROVIDERS: ADMIT Hospitalist; ATTEND Internal Medicine
DX: J44.1 Chronic obstructive pulmonary disease with (acute) exacerbation (principal); J45.909 Unspecified asthma, uncomplicated; M54.9 Dorsalgia, unspecified; G89.29 Other chronic pain; M81.0 Age-related osteoporosis without current pathological fracture; E09.9 Drug or chemical induced diabetes mellitus without complications; T38.0X5A Adverse effect of glucocorticoids and synthetic analogues, initial encounter; F41.9 Anxiety disorder, unspecified; K21.9 Gastro-esophageal reflux disease without esophagitis; F32.9 Major depressive disorder, single episode, unspecified; E88.01 Alpha-1-antitrypsin deficiency; E27.40 Unspecified adrenocortical insufficiency; D64.9 Anemia, unspecified; Z51.81 Encounter for therapeutic drug level monitoring; Z79.899 Other long term (current) drug therapy; Z79.52 Long term (current) use of systemic steroids; Z86.711 Personal history of pulmonary embolism; Z87.891 Personal history of nicotine dependence

== ENCOUNTER → 2016-06-13 | Outpatient (CLI) | payer OTHER ==
[~2016-06-13] MED LIST changes: +ATV/1 PO; +ATV1 PO; +BROM0.0911 OPR; +CITA40TA4 PO; +CYAN10005 PO; +DOCU-94 PO; -DXY100 PO; +EPP3/2 IM; +FLX/5 PO; +FLX5 PO; +FURO40TA3 PO; +GLIM1TAB2 PO; +HYDR-5688 PO; +IPRASOL4 NEB; +LEVA1.258 INH; +LSX40 PO; +METO5TAB3 PO; +OMEP20CA9 PO; +OXGN; +OXYC-609 PO; +OXYC1TAB3 PO; +POTA-74 PO; +POTA10CA28 PO; +PRD20 PO; +PRED10TA PO; +PRED1SUS OPR; +SPRIN INH; +SPRIN PO; +VNTHFA/IN INH; +XPNINS1255 INH; +ZTHM250 PO; +[UNRECOGNIZED DRUG - CODE] IV
[2016-06-13 16:45] LABS: BASO % 1.1 %; BASO ABS # 0.09 K/uL (0-0.2); COMPLETE YES; EOS % 2.1 %; HEMATOCRIT 36.1 % (37-47); IG% 0.2 %; LYMPH % 27.3 %; LYMPH ABS # 2.26 K/uL (1.2-3.4); MEAN CELL VOLUME 79.5 fL (80-100); MEAN CORPUSCULAR HEMOGLOBIN 23.6 pg (25-34); MEAN CORPUSCULAR HGB CONC 29.6 g/dl (32-36); MEAN PLATELET VOLUME 11.1 fL (7.4-10.4); MONO % 8.8 %; NEUT % 60.5 %; PLATELET COUNT 246 K/uL (130-400); RED BLOOD COUNT 4.54 M/uL (4.2-5.4); WHITE BLOOD COUNT 8.28 K/uL (4.8-10.8)
[2016-06-13 17:17] LABS: ALT/SGPT 27 U/L (12-78); AST/SGOT 12 U/L (15-37); BLOOD UREA NITROGEN 14 mg/dl (7-18); BUN/CREATININE RATIO 17.6 (10-20); CALCIUM 8.8 mg/dl (8.5-10.1); CARBON DIOXIDE 32 mmol/L (21-32); CHLORIDE 102 mmol/L (98-107); CREATININE 0.82 mg/dl (0.60-1.20); GLUCOSE 88 mg/dl (70-99); MAGNESIUM 1.7 mg/dl (1.8-2.4); POTASSIUM 3.4 mmol/L (3.5-5.1); SODIUM 143 mmol/L (136-145)
[2016-06-13 17:30] LABS: ALKALINE PHOSPHATASE 59 U/L (45-117); IMMUNOGLOBULN A 85.8 mg/dL (70-400); IMMUNOGLOBULN M 84.1 mg/dL (40-230); THYROID STIMULATING HORMONE 0.947 uIu/ml (0.300-4.500); TOTAL IRON BINDING CAPACITY 315 mcg/dl (250-450)
--- NOTE | 2016-06-17 14:12 | CODING QUERY MEDICAL NECESSITY ---
SUPPORTING DIAGNOSIS NEEDED A supporting diagnosis is required for the test/procedure performed on this patient in order for us to be reimbursed by the patient's insurance. Please provide a supporting diagnosis for the following test/procedure listed below next to the test name along with your signature. *If there is no additional diagnosis for this patient that would support the following test/procedure please document that below next to the test/procedure. Test(s)/Procedure(s) that require a supporting diagnosis: * VITAMIN B-12 LEVEL DIAGNOSIS: * VITAMIN D 25 -DIHYDROXY DIAGNOSIS: * IMMUNOGLOBULIN E DIAGNOSIS: * DOS: 06/13/16 Provider Signature: Date: Thank you Danielle Mckinnon Health Information Management Once completed, please kindly fax back to [phone] For questions please call [phone]
[2016-06-19 11:27] LABS: IMMUNOGLOBULIN E TC 24620E 777 KU/L (<115)
== END | disposition home or self-care (01) ==
LOC: C.LAB 15:22
PROVIDERS: ATTEND Internal Medicine Pulmonary Disease
DX: D80.0 Hereditary hypogammaglobulinemia (principal); I95.1 Orthostatic hypotension; R53.83 Other fatigue; Z79.52 Long term (current) use of systemic steroids

== ENCOUNTER 2016-06-19 13:28 | Inpatient (IN) | payer OTHER ==
[~2016-06-19] VITALS: Ht 165.1 cm; Wt 94.8 kg
[~2016-06-19 13:28] MED LIST changes: -ATV/1 PO; -ATV1 PO; -BROM0.0911 OPR; -CITA40TA4 PO; -CYAN10005 PO; -DOCU-94 PO; -EPP3/2 IM; -FLX/5 PO; -FLX5 PO; -FURO40TA3 PO; -HYDR-5688 PO; -IPRASOL4 NEB; -LEVA1.258 INH; -LSX40 PO; -METO5TAB3 PO; -OMEP20CA9 PO; -OXGN; -OXYC-609 PO; -OXYC1TAB3 PO; -POTA-74 PO; -POTA10CA28 PO; -PRD20 PO; -PRED10TA PO; -PRED1SUS OPR; -SPRIN PO; -VNTHFA/IN INH; -XPNINS1255 INH; -ZTHM250 PO; -[UNRECOGNIZED DRUG - CODE] IV
[2016-06-19] MEDS ORDERED: ALBUT/IPRATROP 3MG/0.5MG NEB 3 ML VIAL INH STA ×3 (14:06→17:33)
[2016-06-19] MEDS ORDERED: OXYCODONE HCL IR 5 MG TAB (IMMEDIATE RELEASE) PO STA (14:09)
--- NOTE | 2016-06-19 14:49 | DIAGNOSTIC IMAGING REPORT ---
SINGLE VIEW CHEST CLINICAL HISTORY: Dyspnea. FINDINGS: An AP, portable, upright chest radiograph is compared to study dated 05/08/2016 and correlated with chest CT dated 05/10/2016. The examination is degraded by portable technique, large body habitus, and patient rotation. A left subclavian central venous infusion port is unchanged in position. The cardiomediastinal silhouette is unremarkable. There is chronic elevation of the right hemidiaphragm with bibasilar atelectasis. No airspace consolidation, large pleural effusion, or pneumothorax is seen. The skeletal structures are osteopenic. The bony thorax is grossly intact. Cholecystectomy clips are identified in the right upper quadrant. IMPRESSION: No acute cardiopulmonary abnormality. Electronically signed by: Nathanael Rutherford M.D. 06/19/2016 2:47 PM Dictated Date/Time: 06/19/2016 2:46 PM
--- NOTE | 2016-06-19 15:25 | EMERGENCY ROOM VISIT NOTE ---
History Report prepared by Jean-Pierre: Sony Melendez Under the Supervision of: Dr. Jerson Fernandez D.O. First contact with patient: 14:01 Chief Complaint: RESPIRATORY PROBLEMS Stated Complaint: ASTHMA, BACK PAIN Nursing Triage Summary: having difficulty with asthma. "it is always there. It seems to be worse" 4lb weight gain despite taking lasix History of Present Illness The patient is a 55 year old female who presents to the Emergency Room with complaints of persistent shortness of breath starting a few days ago. She used her nebulizers without relief. She also complains of some chest tightness located across her chest under her breasts. She does not have any pain radiation. She also complains of pain and swelling in bilateral lower extremities. She notes abdominal distension. She gained 4 pounds yesterday. She takes Lasix 40 mg every day. She has a history of similar symptoms occurring with asthma exacerbation. The patient had called her programmer analyst health it's office who referred her to the Emergency Room. She had been taking 20 mg of steroids until yesterday. As prescribed by her PCP, she started taking 15 mg of steroids today. She denies fevers, cough, abdominal pain, or any other complaints. She has chronic back pain which is unchanged. She has a history of pulmonary embolism but denies any blood thinners. Source of History: patient Onset: a few days ago Position: other (global) Quality: other (shortness of breath) Timing: other (persistent) Modifying Factors (Relieving): other (nebulizers without relief) Associated Symptoms: + chest pain, No abdominal pain, No cough, No fevers Review of Systems See HPI for pertinent positives & negatives. A total of 10 systems reviewed and were otherwise negative. 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 (13) Microscopic hematuria (14) Osteoporosis (15) Sleep apnea (16) Vertebral fracture, closed Surgical Problems: (1) H/O sinus surgery (2) History of carpal tunnel surgery (3) S/P cardiac cath (4) S/P herniorrhaphy (5) Status post appendectomy (6) Status post hernia repair (7) Status post partial colectomy (8) Status post thermoplasty (9) Status post thermoplasty Family History FH: heart disease FATHER FH: sleep apnea MOTHER FHx: cancer FHx: gallbladder disease Hypertension MOTHER Kidney disease MOTHER Social History Smoking Status: Never Smoker Alcohol Use: none Housing Status: lives with significant other Current/Historical Medications Scheduled Alendronate Sodium (Fosamax), 70 MG PO WK Budesonide/Formoterol Fumarate (Symbicort 160/4.5 Inhaler ), 2 PUFFS INH BID Cholecalciferol (Vitamin D), 1,000 UNIT PO BID Citalopram Hydrobromide (Celexa), 40 MG PO QAM Cyanocobalamin (Vitamin B-12), 1,000 MCG PO QAM Docusate Sodium (Colace), 200 MG PO HS Furosemide (Furosemide), 40 MG PO QAM Immune Globulin (Human) Iv (Privigen), Unknown Dose IV MONTHLY Omeprazole (Prilosec), 20 MG PO BID Oxygen (Oxygen), 2 LITERS NA PRN Potassium Chloride (Potassium Chloride Er), 10 MEQ PO QAM Prednisone (Prednisone), 15 MG PO QAM Tiotropium [place] (Spiriva Handihaler), 1 PUFF INH QAM Zafirlukast (Zafirlukast), 20 MG PO BID Scheduled PRN Epinephrine (Epipen 2-Deshawn), 0.3 MG IM UD PRN for ALLERGIC REACTION Glimepiride (Glimepiride), 1 TAB PO DAILY PRN for glucose > 110 Hydrocodone/Acetaminophen 5MG/325MG ([place] 5MG/325MG), 1-2 TABS PO Q4-6H PRN for Pain Ipratropium-Albuterol (Duoneb), 1 TREATMENT INH Q4H PRN for PRN Lorazepam (Ativan), 1 MG PO QAM PRN for Anxiety Lorazepam (Lorazepam), 2 MG PO HS PRN for Anxiety Polyethylene Glycol 3350 (Miralax), 17 GM PO DAILY PRN for Constipation Allergies Coded Allergies: Aspirin (Verified Allergy, Intermediate, HIVES, 06/19/16) Ibuprofen (Verified Allergy, Intermediate, HIVES, 06/19/16) Levofloxacin (Verified Allergy, Intermediate, HIVES, 06/19/16) Iodinated Diagnostic Agents (Verified Allergy, Unknown, HIVES, 06/19/16) Pregabalin (Unverified Allergy, Unknown, SEVERE DEPRESSION, 06/19/16) Zolpidem (Verified Adverse Reaction, Intermediate, HALLUCINATIONS, 06/19/16) Gabapentin (Verified Adverse Reaction, Mild, GOOFY THOUGHTS, 06/19/16) Physical Exam Vital Signs Date Time Temp Pulse Resp B/P Pulse Ox O2 Delivery O2 Flow Rate FiO2 06/19/16 17:31 94 Nasal Cannula 2.0 06/19/16 17:30 82 20 148/90 84 Room Air 06/19/16 16:42 70 16 137/82 96 Nasal Cannula 2.0 06/19/16 16:00 76 18 131/81 94 Nasal Cannula 2.0 06/19/16 15:23 79 20 124/84 96 Nasal Cannula 2.0 06/19/16 14:56 85 18 136/88 96 Room Air 06/19/16 14:23 78 06/19/16 14:14 97 Room Air 06/19/16 14:14 97 Room Air 06/19/16 13:32 97 Room Air 06/19/16 13:30 36.8 86 22 176/88 97 Room Air Physical Exam GENERAL: Patient is awake, alert, and in no acute distress. Patient is resting comfortably and showing no signs of anxiety EYES: The conjunctivae are clear. The pupils are round and reactive. EARS, NOSE, MOUTH AND THROAT: The nose is without any evidence of any deformity. Mucous membranes are moist tongue is midline NECK: The neck is nontender and supple. RESPIRATORY: Lung sounds are diminished throughout with scattered expiratory wheezing in all mccain. No tachy or conversational dyspnea noted. CARDIOVASCULAR: Regular rate and rhythm noted there no murmurs rubs or gallops normal S1 normal S2 GASTROINTESTINAL: The abdomen is soft. Bowel sounds are present in all quadrants. Abdomen is nontender MUSCULOSKELETAL/EXTREMITIES: There is no evidence of gross deformity full range of motion is noted in the hips and shoulders SKIN: There is no obvious evidence of any rash. There are no petechiae, pallor or cyanosis noted. Pedal edema bilaterally. NEUROLOGIC: Patient is awake alert and oriented x3 Medical Decision & Procedures ER Provider Diagnostic Interpretation: X ray results and stated below per my interpretation and radiology interpretation. CTA results per my review and radiologist interpretation: CT ANGIOGRAM OF THE CHEST CLINICAL HISTORY: Chest pain and shortness of breath. COMPARISON STUDY: 05/10/2016, chest x-ray dated June 19, 2016 TECHNIQUE: Following the IV administration of 87 mL of Optiray-320, CT angiogram of the thorax was performed from the thoracic inlet to the lung bases utilizing the pulmonary embolus protocol. Images are reviewed in the axial, sagittal, and coronal planes. IV contrast was administered without complication. MIP imaging was performed. CT DOSE: 605.80 mGycm FINDINGS: No pathologically enlarged axillary mediastinal or hilar lymph nodes were visualized. There was no evidence of thoracic aortic dilatation. There were no pulmonary artery filling defects to indicate acute pulmonary embolism. No pleural effusions are visualized. There is mild emphysema. There are mild dependent atelectatic changes. There is no focal pulmonary consolidation. There is a mild lower thoracic compression deformity. IMPRESSION: 1. No CT evidence of acute pulmonary embolism 2. No evidence of pathologic adenopathy 3. No evidence of focal pulmonary consolidation Electronically signed by: Jules Lester M.D. 06/19/2016 4:42 PM Dictated Date/Time: 06/19/2016 4:37 PM SINGLE VIEW CHEST CLINICAL HISTORY: Dyspnea. FINDINGS: An AP, portable, upright chest radiograph is compared to study dated 05/08/2016 and correlated with chest CT dated 05/10/2016. The examination is degraded by portable technique, large body habitus, and patient rotation. A left subclavian central venous infusion port is unchanged in position. The cardiomediastinal silhouette is unremarkable. There is chronic elevation of the right hemidiaphragm with bibasilar atelectasis. No airspace consolidation, large pleural effusion, or pneumothorax is seen. The skeletal structures are osteopenic. The bony thorax is grossly intact. Cholecystectomy clips are identified in the right upper quadrant. IMPRESSION: No acute cardiopulmonary abnormality. Electronically signed by: Nathanael Rutherford M.D. 06/19/2016 2:47 PM Dictated Date/Time: 06/19/2016 2:46 PM Laboratory Results 06/19/16 14:49 Red Blood Count 4.05, Mean Corpuscular Volume 79.5, Mean Corpuscular Hemoglobin 23.7, Mean Corpuscular Hemoglobin Concent 29.8, Mean Platelet Volume 10.5, Neutrophils (%) (Auto) 59.3, Lymphocytes (%) (Auto) 30.4, Monocytes (%) (Auto) 6.3, Eosinophils (%) (Auto) 2.8, Basophils (%) (Auto) 0.9, Neutrophils # (Auto) 4.43, Lymphocytes # (Auto) 2.27, Monocytes # (Auto) 0.47, Eosinophils # (Auto) 0.21, Basophils # (Auto) 0.07 06/19/16 14:49 Test 06/19/16 14:49 06/19/16 14:54 06/19/16 17:30 White Blood Count 7.47 K/uL (4.8-10.8) Red Blood Count 4.05 M/uL (4.2-5.4) Hemoglobin 9.6 g/dL (12.0-16.0) Hematocrit 32.2 % (37-47) Mean Corpuscular Volume 79.5 fL (80-100) Mean Corpuscular Hemoglobin 23.7 pg (25-34) Mean Corpuscular Hemoglobin Concent 29.8 g/dl (32-36) Platelet Count 270 K/uL (130-400) Mean Platelet Volume 10.5 fL (7.4-10.4) Neutrophils (%) (Auto) 59.3 % Lymphocytes (%) (Auto) 30.4 % Monocytes (%) (Auto) 6.3 % Eosinophils (%) (Auto) 2.8 % Basophils (%) (Auto) 0.9 % Neutrophils # (Auto) 4.43 K/uL (1.4-6.5) Lymphocytes # (Auto) 2.27 K/uL (1.2-3.4) Monocytes # (Auto) 0.47 K/uL (0.11-0.59) Eosinophils # (Auto) 0.21 K/uL (0-0.5) Basophils # (Auto) 0.07 K/uL (0-0.2) RDW Standard Deviation 51.0 fL (36.4-46.3) RDW Coefficient of Variation 17.7 % (11.5-14.5) Immature Granulocyte % (Auto) 0.3 % Immature Granulocyte # (Auto) 0.02 K/uL (0.00-0.02) Smudge Cells PRESENT Polychromasia 1+ Prothrombin Time 10.3 SECONDS (9.0-12.0) Prothromb Time International Ratio 1.0 (0.9-1.1) Activated Partial Thromboplast Time 27.8 SECONDS (21.0-31.0) Partial Thromboplastin Ratio 1.1 Anion Gap 9.0 mmol/L (3-11) Est Creatinine Clear Calc Drug Dose 91.7 ml/min Estimated GFR () 98.5 Estimated GFR (Non- 85.0 BUN/Creatinine Ratio 15.4 (10-20) Calcium Level 8.6 mg/dl (8.5-10.1) Total Bilirubin 0.2 mg/dl (0.2-1) Aspartate Amino Transf (AST/SGOT) 20 U/L (15-37) Alanine Aminotransferase (ALT/SGPT) 29 U/L (12-78) Alkaline Phosphatase 53 U/L (45-117) Pro-B-Type Natriuretic Peptide 141 pg/ml (0-900) Total Protein 7.0 gm/dl (6.4-8.2) Albumin 3.0 gm/dl (3.4-5.0) Globulin 4.0 gm/dl (2.5-4.0) Albumin/Globulin Ratio 0.8 (0.9-2) Random Cortisol 2.71 mcg/dl Bedside D-Dimer > 450 ng/mlFEU (0-450) Bedside Troponin I 0.000 ng/ml (0-0.045) Laboratory results per my review. Medications Administered Medications (Trade) Dose Ordered Sig/Kaye Route Start Time Stop Time Status Last Admin Dose Admin Albuterol/ Ipratropium (Duoneb) 3 ml NOW STAT INH 06/19/16 14:06 06/19/16 14:07 DC 06/19/16 14:12 3 ML Oxycodone HCl (Roxicodone Immediate Rel Tab) 5 mg NOW STAT PO 06/19/16 14:09 06/19/16 14:10 DC 06/19/16 14:13 5 MG Diphenhydramine HCl (Benadryl Inj) 25 mg NOW STAT IV 06/19/16 15:49 06/19/16 15:50 DC 06/19/16 16:02 25 MG Dexamethasone Sodium Phosphate (Decadron Inj) 10 mg NOW ONCE IV 06/19/16 16:00 06/19/16 16:01 DC 06/19/16 16:03 10 MG Albuterol/ Ipratropium (Duoneb) 3 ml NOW STAT INH 06/19/16 16:12 06/19/16 16:13 DC 06/19/16 16:43 3 ML Albuterol/ Ipratropium (Duoneb) 3 ml NOW STAT INH 06/19/16 17:33 06/19/16 17:34 DC 06/19/16 17:37 3 ML ECG Indication: SOB/dyspnea Rate (beats per minute): 71 Rhythm: normal sinus Findings: no ectopy, other (No acute ST segment abnormalities) Comparison ECG Date: March 15, 2016 Change: no significant change ED Course 1401: The patient was evaluated in room A09B. A complete history and physical examination were performed. 1406: DuoNeb 3 ml INH 1409: Oxycodone HCl 5 mg PO 1549: Benadryl Inj 25 mg IV 1600: Decadron Inj 10 mg IV 1612: DuoNeb 3 ml INH 1732: Upon reevaluation, the patient is resting comfortably. I discussed results and treatment plan with her. She verbalizes agreement and understanding. I spoke with Sury Vuong PA-C of the [facility]. The patient will be evaluated for further management and care. Medical Decision Prior records/ancillary studies reviewed. Triage Nursing notes reviewed. Differential diagnosis: Etiologies such as infections, reactive airway disease, pneumonia, pneumothorax , COPD, CHF, cardiac ischemia, pulmonary embolism, musculoskeletal, gastrointestinal, as well as others were entertained. The patient is a 55-year-old female who presented to the emergency department for an evaluation of shortness of breath. The patient also complained of chest tightness and chest pressure which she states is consistent with her previous episodes of asthma. The patient also has a history of pulmonary embolism. I discussed the patient's laboratory and radiographic studies with her. She was treated with bronchodilator therapy as well as IV steroids in emergency department. On subsequent reevaluation she was feeling much better at rest but upon any ambulation she became very dyspneic and her oxygen saturation dropped. For this reason I [facility] have agreed to evaluate the patient in the emergency apartment for further management and disposition. Consults Time Called: [id number] Consulting Physician: Sury Vuong PA-C of the [facility] Returned Call: [phone] I spoke with Sury Vuong PA-C of the [facility]. Impression Primary Impression: Anterior chest wall pain Additional Impressions: Acute asthma exacerbation Anemia Hypoxia Scribe Attestation The scribe's documentation has been prepared under my direction and personally reviewed by me in its entirety. I confirm that the note above accurately reflects all work, treatment, procedures, and medical decision making performed by me. Departure Information Dispostion Being Evaluated By Hospitalist Referrals No Doctor, Assigned (PCP) Patient Instructions [facility] Problem Qualifiers
[2016-06-19 15:26] LABS: HEMATOCRIT 32.2 % (37-47); MEAN CELL VOLUME 79.5 fL (80-100); MEAN CORPUSCULAR HEMOGLOBIN 23.7 pg (25-34); MEAN CORPUSCULAR HGB CONC 29.8 g/dl (32-36); MEAN PLATELET VOLUME 10.5 fL (7.4-10.4); PLATELET COUNT 270 K/uL (130-400); RED BLOOD COUNT 4.05 M/uL (4.2-5.4); WHITE BLOOD COUNT 7.47 K/uL (4.8-10.8)
[2016-06-19 15:40] LABS: PARTIAL THROMBOPLASTIN RATIO 1.1; PROTHROMBIN TIME (PATIENT) 10.3 SECONDS (9.0-12.0)
[2016-06-19] MEDS ORDERED: PRED10TA PO (15:47)
[2016-06-19 15:48] LABS: BUN/CREATININE RATIO 15.4 (10-20); CALCIUM 8.6 mg/dl (8.5-10.1); CREATININE 0.78 mg/dl (0.60-1.20); POTASSIUM 3.4 mmol/L (3.5-5.1)
[2016-06-19] MEDS ORDERED: DiphenhydrAMINE HCL 50 MG/ML VIAL IV STA (15:49)
[2016-06-19 15:52] LABS: ALB/GLOB RATIO 0.8 (0.9-2)
[2016-06-19] MEDS ORDERED: DEXAMETHASONE SOD INJ 10 MG/ML VIAL IV ONE (16:00)
[2016-06-19] MEDS ORDERED: OPTIRAY 320 IV PRN (16:00)
--- NOTE | 2016-06-19 16:43 | DIAGNOSTIC IMAGING REPORT ---
CT ANGIOGRAM OF THE CHEST CLINICAL HISTORY: Chest pain and shortness of breath. COMPARISON STUDY: 05/10/2016, chest x-ray dated June 19, 2016 TECHNIQUE: Following the IV administration of 87 mL of Optiray-320, CT angiogram of the thorax was performed from the thoracic inlet to the lung bases utilizing the pulmonary embolus protocol. Images are reviewed in the axial, sagittal, and coronal planes. IV contrast was administered without complication. MIP imaging was performed. CT DOSE: 605.80 mGycm FINDINGS: No pathologically enlarged axillary mediastinal or hilar lymph nodes were visualized. There was no evidence of thoracic aortic dilatation. There were no pulmonary artery filling defects to indicate acute pulmonary embolism. No pleural effusions are visualized. There is mild emphysema. There are mild dependent atelectatic changes. There is no focal pulmonary consolidation. There is a mild lower thoracic compression deformity. IMPRESSION: 1. No CT evidence of acute pulmonary embolism 2. No evidence of pathologic adenopathy 3. No evidence of focal pulmonary consolidation Electronically signed by: Jules Lester M.D. 06/19/2016 4:42 PM Dictated Date/Time: 06/19/2016 4:37 PM
[2016-06-19 17:31] LABS: BASO % 0.9 %; BASO ABS # 0.07 K/uL (0-0.2); COMPLETE YES; EOS % 2.8 %; IG% 0.3 %; LYMPH % 30.4 %; LYMPH ABS # 2.27 K/uL (1.2-3.4); MONO % 6.3 %; NEUT % 59.3 %; POLYCHROMASIA 1+; SMUDGE CELLS PRESENT
[2016-06-19 17:54] LABS: URINE APPEARANCE CLEAR (CLEAR); URINE BILIRUBIN NEG (NEG); URINE COLOR YELLOW; URINE NITRITE NEG (NEG); URINE PH 5.5 (4.5-7.5); URINE SPECIFIC GRAVITY 1.045 (1.000-1.030); UROBILINOGEN NEG (NEG)
[2016-06-19 17:55] LABS: MANUAL MICROSCOPIC REQUIRED? NO; REVIEW REQ? NO
[2016-06-19] MEDS ORDERED: ACETAMINOPHEN 325 MG TAB PO PRN (18:15)
[2016-06-19] MEDS ORDERED: LORAZEPAM 1 MG TAB PO PRN ×2 (18:15)
[2016-06-19] MEDS ORDERED: NITROGLYCERIN 0.4 MG SL PER TAB CHARGE SL PRN (18:15)
[2016-06-19] MEDS ORDERED: ONDANSETRON INJ 2 MG/ML 2 ML VIAL IV PRN (18:15)
[2016-06-19] MEDS ORDERED: GLUCOSE 10 TABS/TUBE PO PRN (18:30)
[2016-06-19] MEDS ORDERED: GLUCAGON FOR INJ 1 MG VIAL SQ PRN (18:30)
[2016-06-19] MEDS ORDERED: DEXTROSE 50% 50 ML SYR IV PRN (18:30)
[2016-06-19] MEDS ORDERED: GLUCOSE 40% GEL 15 GM TUBE PO PRN (18:30)
--- NOTE | 2016-06-19 18:40 | History and Physical ---
History & Physical Date & Time of Service: Jun 19, 2016 at 18:18 Chief Complaint: Asthma, Back Pain Primary Care Physician: Petra Kelly History of Present Illness Source: patient This is a 55 y/o female with underlying Asthma/COPD and other problems as outlined below who presents to the ED c/o worsening SOB since yesterday. Pt has frequent admissions for her exacerbations. Last admission was 05/08-05/14. 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 Pt reports that despite the steroids her SOB started worsening again yesterday. Sxs are assoc with chest tightness and wheezing. She has been using her inhalers and nebs which has only given her temporary relief. She denies cough or sputum production. Pt has a history of PE not on anticoagulation. Pt denies fever/chills, chest pain, abd pain, N/V, bowel or bladder issues, LE edema, calf pain, lightheadedness/dizziness. In the ED, saturations dropped into the 80s with ambulation. She was treated with nebulizer and solumedrol. Pt is stable and will be admitted for further evaluation and treatment. 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 (2) Anxiety Status: Chronic (3) Asthma Status: Chronic (4) Chronic back pain Status: Chronic (5) Depression Status: Chronic (6) Deterioration of spinal disc of lower back Status: Chronic (7) Dyslipidemia Status: Chronic (8) GERD (gastroesophageal reflux disease) Status: Chronic (9) H/O adrenal insufficiency Status: Chronic (10) History of colonic diverticulitis Status: Chronic (11) History of pulmonary embolism Status: Chronic (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 (13) Microscopic hematuria Permanent Comment: evaluated by Urology; no significant path per patient Status: Chronic (14) Osteoporosis Status: Chronic (15) Sleep apnea Status: Chronic (16) Vertebral fracture, closed Status: Chronic Surgical Problems: (1) H/O sinus surgery Status: Chronic (2) History of carpal tunnel surgery Status: Chronic (3) S/P cardiac cath Status: Chronic (4) S/P herniorrhaphy Status: Chronic (5) Status post appendectomy Status: Chronic (6) Status post hernia repair Status: Chronic (7) Status post partial colectomy Status: Chronic (8) Status post thermoplasty Status: Chronic (9) Status post thermoplasty Status: Chronic Family History FH: heart disease FATHER FH: sleep apnea MOTHER FHx: cancer FHx: gallbladder disease Hypertension MOTHER Kidney disease MOTHER Social History Smoking Status: Former Smoker (32 pack year history; quit 13 years ago ) Alcohol Use: none Drug Use: none Marital Status: single Housing status: lives alone Immunizations History of Influenza Vaccine: Yes Influenza Vaccine Date: Jan 25, 2016 History of Tetanus Vaccine?: Yes Tetanus Immunization Date: Aug 16, 2007 History of Pneumococcal: Yes Pneumococcal Date: Jan 02, 2016 Allergies Coded Allergies: Aspirin (Verified Allergy, Intermediate, HIVES, 06/19/16) Ibuprofen (Verified Allergy, Intermediate, HIVES, 06/19/16) Levofloxacin (Verified Allergy, Intermediate, HIVES, 06/19/16) Iodinated Diagnostic Agents (Verified Allergy, Unknown, HIVES, 06/19/16) Pregabalin (Unverified Allergy, Unknown, SEVERE DEPRESSION, 06/19/16) Zolpidem (Verified Adverse Reaction, Intermediate, HALLUCINATIONS, 06/19/16) Gabapentin (Verified Adverse Reaction, Mild, GOOFY THOUGHTS, 06/19/16) Home Medications Scheduled Alendronate Sodium (Fosamax), 70 MG PO WK Budesonide/Formoterol Fumarate (Symbicort 160/4.5 Inhaler ), 2 PUFFS INH BID Cholecalciferol (Vitamin D), 1,000 UNIT PO BID Citalopram Hydrobromide (Celexa), 40 MG PO QAM Cyanocobalamin (Vitamin B-12), 1,000 MCG PO QAM Docusate Sodium (Colace), 200 MG PO HS Furosemide (Furosemide), 40 MG PO QAM Immune Globulin (Human) Iv (Privigen), Unknown Dose IV MONTHLY Omeprazole (Prilosec), 20 MG PO BID Oxygen (Oxygen), 2 LITERS NA PRN Potassium Chloride (Potassium Chloride Er), 10 MEQ PO QAM Prednisone (Prednisone), 15 MG PO QAM Tiotropium Banks (Spiriva Handihaler), 1 PUFF INH QAM Zafirlukast (Zafirlukast), 20 MG PO BID Scheduled PRN Epinephrine (Epipen 2-Deshawn), 0.3 MG IM UD PRN for ALLERGIC REACTION Glimepiride (Glimepiride), 1 TAB PO DAILY PRN for glucose > 110 Hydrocodone/Acetaminophen 5MG/325MG (Dendron 5MG/325MG), 1-2 TABS PO Q4-6H PRN for Pain Ipratropium-Albuterol (Duoneb), 1 TREATMENT INH Q4H PRN for PRN Lorazepam (Ativan), 1 MG PO QAM PRN for Anxiety Lorazepam (Lorazepam), 2 MG PO HS PRN for Anxiety Polyethylene Glycol 3350 (Miralax), 17 GM PO DAILY PRN for Constipation Review of Systems Constitutional: No chills, No fatigue, No fever, No sweats, No weakness Eyes: No worsening of vision ENT: No hearing loss Respiratory: + dyspnea at rest, + dyspnea on exertion, + shortness of breath, + wheezing, No cough, No sputum Cardiovascular: No chest pain, No claudication, No edema Abdomen: No constipation, No diarrhea, No nausea, No pain, No vomiting Musculoskeletal: No calf pain, No swelling Genitourinary - Female: No dysuria Neurologic: No weakness Psychiatric: No depression symptoms Endocrine: No fatigue Hematologic / Lymphatic: No abnormal bleeding/bruising Integumentary: No new/changing skin lesions Physical Exam Vital Signs Date Time Temp Pulse Resp B/P Pulse Ox O2 Delivery O2 Flow Rate FiO2 06/19/16 17:31 94 Nasal Cannula 2.0 06/19/16 17:30 82 20 148/90 84 Room Air 06/19/16 16:42 70 16 137/82 96 Nasal Cannula 2.0 06/19/16 16:00 76 18 131/81 94 Nasal Cannula 2.0 06/19/16 15:23 79 20 124/84 96 Nasal Cannula 2.0 06/19/16 14:56 85 18 136/88 96 Room Air 06/19/16 14:23 78 06/19/16 14:14 97 Room Air 06/19/16 14:14 97 Room Air 06/19/16 13:32 97 Room Air 06/19/16 13:30 36.8 86 22 176/88 97 Room Air General Appearance: WD/WN, no apparent distress, + pertinent finding (Pt is sitting up comfortably in bed ) Head: normocephalic, atraumatic Eyes: normal inspection ENT: hearing grossly normal Neck: supple Respiratory/Chest: chest non-tender, no respiratory distress, no accessory muscle use, + wheezing (expiratory wheezes) Cardiovascular: regular rate, rhythm, no edema, no murmur Abdomen/GI: normal bowel sounds, non tender, soft Back: normal inspection Extremities/Musculoskelatal: normal inspection, no calf tenderness, no pedal edema Neurologic/Psych: alert, normal mood/affect, oriented x 3 Skin: normal color, warm/dry Diagnostics Laboratory Results Results Past 24 Hours Test 06/19/16 14:49 06/19/16 14:54 06/19/16 17:30 Range/Units White Blood Count 7.47 4.8-10.8 K/uL Red Blood Count 4.05 4.2-5.4 M/uL Hemoglobin 9.6 12.0-16.0 g/dL Hematocrit 32.2 37-47 % Mean Corpuscular Volume 79.5 80-100 fL Mean Corpuscular Hemoglobin 23.7 25-34 pg Mean Corpuscular Hemoglobin Concent 29.8 32-36 g/dl Platelet Count 270 130-400 K/uL Mean Platelet Volume 10.5 7.4-10.4 fL Neutrophils (%) (Auto) 59.3 % Lymphocytes (%) (Auto) 30.4 % Monocytes (%) (Auto) 6.3 % Eosinophils (%) (Auto) 2.8 % Basophils (%) (Auto) 0.9 % Neutrophils # (Auto) 4.43 1.4-6.5 K/uL Lymphocytes # (Auto) 2.27 1.2-3.4 K/uL Monocytes # (Auto) 0.47 0.11-0.59 K/uL Eosinophils # (Auto) 0.21 0-0.5 K/uL Basophils # (Auto) 0.07 0-0.2 K/uL RDW Standard Deviation 51.0 36.4-46.3 fL RDW Coefficient of Variation 17.7 11.5-14.5 % Immature Granulocyte % (Auto) 0.3 % Immature Granulocyte # (Auto) 0.02 0.00-0.02 K/uL Smudge Cells PRESENT Polychromasia 1+ Prothrombin Time 10.3 9.0-12.0 SECONDS Prothromb Time International Ratio 1.0 0.9-1.1 Activated Partial Thromboplast Time 27.8 21.0-31.0 SECONDS Partial Thromboplastin Ratio 1.1 Sodium Level 142 136-145 mmol/L Potassium Level 3.4 3.5-5.1 mmol/L Chloride Level 105 98-107 mmol/L Carbon Dioxide Level 28 21-32 mmol/L Anion Gap 9.0 3-11 mmol/L Blood Urea Nitrogen 12 7-18 mg/dl Creatinine 0.78 0.60-1.20 mg/dl Est Creatinine Clear Calc Drug Dose 91.7 ml/min Estimated GFR () 98.5 Estimated GFR (Non- 85.0 BUN/Creatinine Ratio 15.4 10-20 Random Glucose 91 70-99 mg/dl Calcium Level 8.6 8.5-10.1 mg/dl Total Bilirubin 0.2 0.2-1 mg/dl Aspartate Amino Transf (AST/SGOT) 20 15-37 U/L Alanine Aminotransferase (ALT/SGPT) 29 12-78 U/L Alkaline Phosphatase 53 45-117 U/L Pro-B-Type Natriuretic Peptide 141 0-900 pg/ml Total Protein 7.0 6.4-8.2 gm/dl Albumin 3.0 3.4-5.0 gm/dl Globulin 4.0 2.5-4.0 gm/dl Albumin/Globulin Ratio 0.8 0.9-2 Random Cortisol 2.71 mcg/dl Bedside D-Dimer > 450 0-450 ng/mlFEU Bedside Troponin I 0.000 0-0.045 ng/ml Urine Color YELLOW Urine Appearance CLEAR CLEAR Urine pH 5.5 4.5-7.5 Urine Specific [place] 1.045 1.000-1.030 Urine Protein NEG NEG Urine Glucose (UA) NEG NEG Urine Ketones NEG NEG Urine Occult Blood 2+ NEG Urine Nitrite NEG NEG Urine Bilirubin NEG NEG Urine Urobilinogen NEG NEG Urine Leukocyte Esterase TRACE NEG Urine WBC (Auto) 1-5 0-5 /hpf Urine RBC (Auto) 5-10 0-4 /hpf Urine Hyaline Casts (Auto) 1-5 0-5 /lpf Urine Epithelial Cells (Auto) 10-20 0-5 /lpf Urine Bacteria (Auto) NEG NEG Diagnostic Radiology CT CHEST IMPRESSION: 1. No CT evidence of acute pulmonary embolism 2. No evidence of pathologic adenopathy 3. No evidence of focal pulmonary consolidation CXR IMPRESSION: No acute cardiopulmonary abnormality. EKG EKG: NSR at 71 bpm with no acute ischemic changes noted; no chris when compared to EKG from 03/15/16 Impression Assessment and Plan ACUTE ASTHMA/COPD EXACERBATION pt presents with worsening SOB and wheezing x 24 hrs assoc with chest tightness -admit to telemetry -stable with O2 sats dropping into 80s with ambulation -CXR no consolidation and CT chest negative for PE -check flu -IV steroids and duonebs -empiric doxy -cont Symbicort and Zafirlukast -hx of AAT deficiency, receives IVIG monthly (last infusion was yesterday) -pulmonary consult placed- input appreciated CHEST TIGHTNESS R/O ACS low suspicion for cardiac etiology; likely respiratory related (see above) -Trop negative; monitor with serial Dread x 3 -EKG no ischemic change -documented allergy to ASA -statin for plaque stabilization -monitor on telemetry ELEVATED D-DIMER R/O PE -ddimer>450 -CT chest negative for PE -obtain bilat LE US to r/o DVT STEROID INDUCED DM -hold oral agents, utilize SSI while hospitalized CHRONIC BACK PAIN -following with spine ortho as an outpatient -cont home dose of Dendron -morphine PRN CHRONIC ANEMIA -hgb around baseline at 9.6 -monitor with daily CBC -pt currently denies active bleed GERD -cont PPI DVT PROPHYLAXIS -subq Lovenox CODE STATUS -FULL CODE status per discussion with patient upon admission DISPO -Pt seen in collaboration with Dr. Chan. Please see her addendum for further details. Thanks! Level of Care Telemetry Resuscitation Status FULL RESUSCITATION VTE Prophylaxis VTE Risk Assessment Done? Y/N: Yes Risk Level: Moderate Given or contraindicated: Enoxaparin (Lovenox)SQ Note ATTENDING ADDENDUM Record reviewed. Patient interviewed and examined. Care coordinated with Sury Vuong PA-C. I agree with the assessment and plan as stated with the following exceptions. Ms. Mahajan is a 55 yoF with significant asthma on chronic steroids who presents with worsening of SOB with minimal exertion (cannot quantify), worsening of swelling with a reported weight gain of 4 lbs in the last 2 days and new palpitations and heart racing which are concerning to her. There is no cough, URI symptoms or obvious trigger to the SOB, but she did receive her monthly immune globulin infusion yesterday. However, her symptoms began roughly 10 days ago. She saw pulm to discuss the breathing and palpitations and states Semaj Eyal GALDAMEZ increased her prednisone (? 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 She states her breathing did not improve and got worse yesterday along with a 4 lb weight gain with noticeable swelling in her abdomen and her legs. 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 She reports a chest tightness which is chronic for her and feels like a band wrapped around her upper abdomen , lower thoracic area just under her breasts. She does have a h/o thoracic radiculopathy 2/2 DJD of the spine, and this pain was noted on the prior admission. She states with the swelling in her abdomen there is increased pressure up on her chest especially with lying flat which is uncomfortable for her. Last TTE on file is 05/2014 which reveals EF 55% and mild LVH. Agree with serial cardiac enzymes and telemetry monitoring overnight, IV steroids, doxy, bronchodilator treatments and pulm consult for lungs. Will add Lasix IV now and monitor output/symptom improvement. Will order TTE for the morning. She remains comfortable on 2L via nasal canula. CPAP ordered for overnight use. On exam she is afebrile and HD stable oxygenating well on 2L via NC. Heart and lung exam is normal and she has a protuberant obese abdomen with scarring from prior surgeries. No edema is seen in abdomen or in her legs. Liss Chan DO (Hospitalist)
[2016-06-19 19:00] VITALS: BP 139/71; TEMP 37; O2SAT 97; Ht 165.1 cm; Wt 94.8 kg
[2016-06-19] MEDS ORDERED: GLIMEPIRIDE 2 MG TAB PO PRN (19:00)
[2016-06-19] MEDS ORDERED: POLYETHYLENE (MIRALAX) 17 GM PACK PO PRN (19:00)
[2016-06-19 19:14] VITALS: BP 139/71; PULSE 78; TEMP 37; O2SAT 97
[2016-06-19] MEDS: MoRPHine SULFATE 2 MG/ML CARP IV PRN (19:51)
[2016-06-19] MEDS: DOXYCYCLINE IV 100 MG in DEXTROSE 5% 100ML 100 ML IV SCH (20:31)
[2016-06-19] MEDS: BUDESONIDE/FORMOTEROL FUMARATE 160/4.5 60 PUFFS/INHALER INH SCH (20:31)
[2016-06-19] MEDS: METHYLPREDNISOLONE IV 60 MG in SYRINGE 0 ML IV SCH (20:31)
[2016-06-19] MEDS: DOCUSATE SODIUM 100 MG CAP PO SCH (20:32)
[2016-06-19] MEDS: PANTOprazole SOD 40 MG TAB PO SCH (20:33)
[2016-06-19] MEDS: CHOLECALCIFEROL 1000 INTER.UNIT TAB PO SCH (20:33)
[2016-06-19] MEDS: ZAFIRLUKAST TAB 20 MG TAB PO SCH (20:34)
[2016-06-19] MEDS: INSULIN ASPART 100 UNITS/ML 3 ML PEN SC SCH (20:38)
[2016-06-19 20:43] VITALS: PULSE 75; O2SAT 97
[2016-06-19] MEDS: ALBUT/IPRATROP 3MG/0.5MG NEB 3 ML VIAL INH SCH (20:43)
[2016-06-19] MEDS: ENOXAPARIN 40 MG/0.4 ML SYR SC SCH (20:43)
[2016-06-19] MEDS ORDERED: ATORVASTATIN 40 MG TAB PO SCH (21:00)
[2016-06-19] MEDS ORDERED: POTASSIUM CHLORIDE 20 MEQ TABCR PO STA (21:52)
[2016-06-19] MEDS ORDERED: FUROSEMIDE INJ 20 MG in SYRINGE 0 ML IV STA (21:52)
[2016-06-19] MEDS: HYDROCODONE/ACETAMOPHEN 5/325MG TAB PO PRN (22:07)
[2016-06-19 23:27] VITALS: BP 117/65; PULSE 86; TEMP 36.9; O2SAT 93
[2016-06-19 23:57] LABS: INFLUENZA A PCR Neg for Influ A (NEG); INFLUENZA B PCR Neg for Influ B (NEG)
[2016-06-19 23:59] VITALS: O2SAT 93
[2016-06-20] VITALS (14 sets, daily range): BP systolic 104–132; BP diastolic 59–68; PULSE 62–84; TEMP 36.6–37; O2SAT 92–98
[2016-06-20] MEDS: MoRPHine SULFATE 2 MG/ML CARP IV PRN ×3 (00:22→11:33)
[2016-06-20] MEDS: METHYLPREDNISOLONE IV 60 MG in SYRINGE 0 ML IV SCH (03:12)
[2016-06-20 03:23] LABS: MEAN CELL VOLUME 79.5 fL (80-100); MEAN CORPUSCULAR HEMOGLOBIN 23.8 pg (25-34); MEAN PLATELET VOLUME 10.9 fL (7.4-10.4); PLATELET COUNT 295 K/uL (130-400); WHITE BLOOD COUNT 6.46 K/uL (4.8-10.8)
[2016-06-20] MEDS: HYDROCODONE/ACETAMOPHEN 5/325MG TAB PO PRN ×3 (03:51→23:53)
[2016-06-20 03:52] LABS: BLOOD UREA NITROGEN 12 mg/dl (7-18); BUN/CREATININE RATIO 11.9 (10-20); CALCIUM 8.3 mg/dl (8.5-10.1); CARBON DIOXIDE 27 mmol/L (21-32); CHLORIDE 103 mmol/L (98-107); GLUCOSE 186 mg/dl (70-99); POTASSIUM 4.2 mmol/L (3.5-5.1); SODIUM 141 mmol/L (136-145)
--- NOTE | 2016-06-20 06:38 | DIAGNOSTIC IMAGING REPORT ---
BILATERAL LOWER EXTREMITY VENOUS DOPPLER HISTORY: Pain. Edema. elevated ddi mateo; r/o dv COMPARISON STUDY: 02/07/2016 FINDINGS: There is normal compressibility, flow, and augmentation within the bilateral lower extremity deep venous systems. IMPRESSION: No DVT within the right or left lower extremity. Electronically signed by: Vivek Sanders M.D. 06/20/2016 6:37 AM Dictated Date/Time: 06/20/2016 6:35 AM
[2016-06-20] MEDS: ALBUT/IPRATROP 3MG/0.5MG NEB 3 ML VIAL INH SCH ×4 (07:30→20:30)
--- NOTE | 2016-06-20 07:55 | PULMONARY CONSULTATION ---
DATE OF CONSULTATION: 06/20/2016 DATE OF CONSULTATION: 06/20/2016. HISTORY OF PRESENT ILLNESS: The patient is a 55-year-old female who has had multiple admissions to our hospital with exacerbations of bronchial asthma. She was just discharged on the with chronic obstructive lung disease. She is generally followed by Dr. Chua and Semaj Birch as an outpatient and was seen in our office last week and placed on some prednisone. Each time she seems to taper prednisone below 20 mg she develops symptoms. She presented to the Emergency Room with more complaints of elevated heart rate at least according to the patient this morning. According to the ER records, she was complaining of shortness of breath and some chest tightness. She gained 4 pounds, had been placed on some Lasix for some peripheral edema as well. In the Emergency Room, she had some scattered expiratory wheezing bilaterally, was not hypoxemic, oxygen saturation 97% on room air, pulse is 86 and regular. She had a CAT scan angiogram that other than showing some mild hyperinflation was normal. Electrocardiogram in the Emergency Room revealed normal sinus rhythm with rate of 70 beats per minute and was normal. She has been admitted now and states she feels 100% better now. She denies aspiration. Has not been ill recently. Denies any fevers or night sweats or reflux. She has been very compliant with her medications. Her environmental history is unremarkable. No one in her family has been ill. PAST MEDICAL HISTORY: Significant for Alpha-1 antitrypsin deficiency, significant anxiety with chronic back pain, bronchial asthma and depression, obesity, hyperlipidemia, adrenal insufficiency, history of pulmonary embolism in the remote past, immunoglobulin deficiency, obstructive sleep apnea, compression fractures of the thoracic vertebrae. PAST SURGICAL HISTORY: She had a cardiac cath, herniorrhaphy, appendectomy, carpal tunnel release and partial colectomy. She has had bronchial thermoplasty which was not effective. SOCIAL HISTORY: She has about a [id number] history of cigarette smoking, quit 13 years ago. She is not an alcohol user. From an occupational standpoint, she has not had any industrial exposures. FAMILY HISTORY: Noted father had heart disease and sleep apnea. Mother had hypertension. ALLERGIES: SHE HAS MULTIPLE ALLERGIES INCLUDING ALLERGIES TO ANTI-INFLAMMATORY AGENTS, LEVAQUIN, IODINATED DIAGNOSTIC AGENTS, PREGABALIN, AMBIEN AND TEMAZEPAM. MEDICATIONS: Are noted. PHYSICAL EXAMINATION: VITAL SIGNS: Respiratory rate 16. She is using nebulizer this morning when I saw her. Her pulse is 70 and regular. She does not have any cough or wheezing during the exam today. She is afebrile, oxygen saturation 95% on 2 liters. I O is 240 in and 800 out. Weight is 94.8 kilograms. When she was here in March her weight was 92.27, so she has gained about 5 pounds in the meantime. HEAD, EYES, EARS, NOSE, AND THROAT: Shows small posterior pharyngeal opening, no thrush noted. No tenderness noted over the sinuses. No rhinorrhea noted. No adenopathy is noted. NECK: There is no neck vein distention or HJR. HEART: Regular rate and rhythm at 70 beats per minute. Second heart sound normal. No murmurs are heard. LUNGS: Clear. With forced expiration she had some wheezing, but it seems to be more forced from the upper airway. There is no wheezing at all in her lungs. No fremitus is noted. No rhonchi are noted. ABDOMEN: Soft and obese, nontender. She had a minimal amount of edema in the pretibial area. SKIN EXAMINATION: Normal. Pulses are good. LABORATORY DATA: White count 6.46, hemoglobin 9.3 with microcytic hyperchromic indices, platelet count 295,000. PRP looked good with sugar of 166. Electrocardiogram noted as above. Coagulation profile is unremarkable with an elevated D-dimer. She has had multiple blood draws recently but she did have a few red blood cells in the urine. Influenza A and B PCR is negative. IMPRESSION: 1. Bronchial asthma with exacerbation. Seems like she has a significant amount of anxiety regarding to an elevated heart rate with exercise. I do not hear any wheezing at the present time. 2. Obesity. 3. Chronic pain. RECOMMENDATIONS: 1. Continue with her present inhalers including the Symbicort. 2. I would place him just on 20 mg of prednisone, stop the methylprednisolone, continue with good deep prophylaxis, vitamin D 2000 units daily, and antireflux regimen. I do not think she needs doxycycline at this point. I would continue on the Accolate 20 mg b.i.d. as well. Thanks for asking me to evaluate Ms. Mahajan and I will be glad to follow along with you during her hospital stay. NACHO
[2016-06-20] MEDS: CYANOCOBALAMIN 500 MCG TAB (VIT B-12) PO SCH (08:01)
[2016-06-20] MEDS: CHOLECALCIFEROL 1000 INTER.UNIT TAB PO SCH ×2 (08:01→20:35)
[2016-06-20] MEDS: ZAFIRLUKAST TAB 20 MG TAB PO SCH ×2 (08:01→20:35)
[2016-06-20] MEDS: POTASSIUM CHLORIDE 10 MEQ TABCR PO SCH (08:01)
[2016-06-20] MEDS: FUROSEMIDE 40 MG TAB PO SCH (08:02)
[2016-06-20] MEDS: PANTOprazole SOD 40 MG TAB PO SCH ×2 (08:02→20:35)
[2016-06-20] MEDS: CITALOPRAM 40 MG TAB PO SCH (08:02)
[2016-06-20] MEDS: BUDESONIDE/FORMOTEROL FUMARATE 160/4.5 60 PUFFS/INHALER INH SCH ×2 (08:05→20:33)
[2016-06-20] MEDS: DOXYCYCLINE IV 100 MG in DEXTROSE 5% 100ML 100 ML IV SCH (08:06)
[2016-06-20] MEDS: INSULIN ASPART 100 UNITS/ML 3 ML PEN SC SCH ×4 (08:07→20:26)
--- NOTE | 2016-06-20 15:48 | Progress Note ---
Medicine Progress Note Date & Time of Visit: Jun 20, 2016 at 15:41. Subjective Patient seen and examined. Feels that there is a tight band squeezing around her diaphragm. Notes that her back pain flares up after her IVIG treatments and during asthma exacerbations. Objective Last 8 Hrs Date Time Temp Pulse Resp B/P Pulse Ox O2 Delivery O2 Flow Rate FiO2 06/20/16 14:34 36.8 76 18 97 2.0 06/20/16 12:00 Nasal Cannula 2.0 06/20/16 11:43 36.8 76 18 106/59 97 06/20/16 11:37 62 16 98 Nasal Cannula 2.0 06/20/16 08:00 Nasal Cannula 2.0 Physical Exam: General-awake; alert; NAD Eyes-EOMI; no scleral icterus Neck-no stridor; trachea midline Lungs-scattered end expiratory wheezes Heart-RRR; no m/r/g Abdomen-soft; NTND; nBS Extremities-trace edema around ankles; no deformity Neuro-no gross focal deficits Laboratory Results: Last 24 Hours Test 06/19/16 17:30 06/19/16 19:56 06/19/16 20:52 06/19/16 21:00 Urine Color YELLOW Urine Appearance CLEAR Urine pH 5.5 Urine Specific [place] 1.045 Urine Protein NEG Urine Glucose (UA) NEG Urine Ketones NEG Urine Occult Blood 2+ Urine Nitrite NEG Urine Bilirubin NEG Urine Urobilinogen NEG Urine Leukocyte Esterase TRACE Urine WBC (Auto) 1-5 /hpf Urine RBC (Auto) 5-10 /hpf Urine Hyaline Casts (Auto) 1-5 /lpf Urine Epithelial Cells (Auto) 10-20 /lpf Urine Bacteria (Auto) NEG Bedside Glucose 152 mg/dl Creatine Kinase MB < 0.5 ng/ml Troponin I < 0.015 ng/ml Creatine Kinase MB Ratio Test 06/19/16 21:30 06/20/16 03:00 06/20/16 03:09 06/20/16 06:42 Influenza Type A (RT-PCR) Neg for Influ A Influenza Type B (RT-PCR) Neg for Influ B Creatine Kinase MB Ratio White Blood Count 6.46 K/uL Red Blood Count 3.90 M/uL Hemoglobin 9.3 g/dL Hematocrit 31.0 % Mean Corpuscular Volume 79.5 fL Mean Corpuscular Hemoglobin 23.8 pg Mean Corpuscular Hemoglobin Concent 30.0 g/dl RDW Standard Deviation 51.6 fL RDW Coefficient of Variation 17.7 % Platelet Count 295 K/uL Mean Platelet Volume 10.9 fL Sodium Level 141 mmol/L Potassium Level 4.2 mmol/L Chloride Level 103 mmol/L Carbon Dioxide Level 27 mmol/L Anion Gap 11.0 mmol/L Blood Urea Nitrogen 12 mg/dl Creatinine 1.00 mg/dl Est Creatinine Clear Calc Drug Dose 71.5 ml/min Estimated GFR () 72.9 Estimated GFR (Non- 62.9 BUN/Creatinine Ratio 11.9 Random Glucose 186 mg/dl Calcium Level 8.3 mg/dl Creatine Kinase MB 0.6 ng/ml Troponin I < 0.015 ng/ml Bedside Glucose 166 mg/dl Test 06/20/16 11:32 Bedside Glucose 219 mg/dl Assessment & Plan ACUTE ASTHMA/COPD EXACERBATION -CXR no consolidation and CT chest negative for PE -flu negative -transition methylprednisolone to prednisone per Pulmonary recommendations -discontinue doxycycline -continue Symbicort and Zafirlukast -continue nebulizers -hx of AAT deficiency, receives IVIG monthly (last infusion was 06/18/16) -pulmonary consulted CHEST TIGHTNESS R/O ACS -low suspicion for cardiac etiology; likely respiratory related (see above) -trop negative -EKG no ischemic change -documented allergy to ASA ELEVATED D-DIMER R/O PE -ddimer>450 -CT chest negative for PE -bilateral LE US negative for DVT STEROID INDUCED DM -hold oral agents, utilize SSI while hospitalized CHRONIC BACK PAIN -following with spine ortho as an outpatient -cont home dose of [place] CHRONIC ANEMIA -hgb around baseline -pt currently denies active bleed GERD -cont PPI DVT PROPHYLAXIS -subq Lovenox CODE STATUS -FULL CODE Consultants: Pulmonary Procedures: CT chest 1. No CT evidence of acute pulmonary embolism 2. No evidence of pathologic adenopathy 3. No evidence of focal pulmonary consolidation Bilateral LE venous doppler No DVT within the right or left lower extremity Current Inpatient Medications: Current Inpatient Medications Medications (Trade) Dose Ordered Sig/Kaye Route Start Time Stop Time Status Last Admin Dose Admin Ioversol (Optiray 320) 125 ml UD PRN IV 06/19/16 16:00 06/23/16 15:59 Enoxaparin Sodium (Lovenox Inj) 40 mg Q24H SC 06/19/16 21:00 07/19/16 20:59 Acetaminophen (Tylenol Tab) 650 mg Q4H PRN PO 06/19/16 18:15 07/19/16 18:14 Ondansetron HCl (Zofran Inj) 4 mg Q6H PRN IV 06/19/16 18:15 07/19/16 18:14 Nitroglycerin (Nitrostat Tab) 0.4 mg UD PRN SL 06/19/16 18:15 07/19/16 18:14 Albuterol/ Ipratropium (Duoneb) 3 ml QIDR INH 06/19/16 20:00 07/19/16 19:59 06/20/16 11:37 3 ML Alendronate Sodium (Fosamax Tab) 70 mg Sa@0630 PO 06/22/16 06:30 07/22/16 06:29 Cholecalciferol (Vitamin D Tab) 1,000 inter.unit BID PO 06/19/16 21:00 07/19/16 20:59 06/20/16 08:01 1,000 INTER.UNIT Citalopram Hydrobromide (celeXA TAB) 40 mg QAM PO 06/20/16 09:00 07/20/16 08:59 06/20/16 08:02 40 MG Cyanocobalamin (Vitamin B-12 Tab) 1,000 mcg QAM PO 06/20/16 09:00 07/20/16 08:59 06/20/16 08:01 1,000 MCG Docusate Sodium (coLACE CAP) 200 mg HS PO 06/19/16 21:00 07/19/16 20:59 06/19/16 20:32 200 MG Furosemide (Lasix Tab) 40 mg QAM PO 06/20/16 09:00 07/20/16 08:59 06/20/16 08:02 40 MG Acetaminophen/ Hydrocodone Bitart ([place] 5/325 Tab) 2 tab Q6H PRN PO 06/19/16 18:15 07/03/16 18:14 06/20/16 03:51 2 TAB Lorazepam (Ativan Tab) 2 mg HS PRN PO 06/19/16 18:15 07/19/16 18:14 Lorazepam (Ativan Tab) 1 mg QAM PRN PO 06/19/16 18:15 07/19/16 18:14 Zafirlukast (Accolate Tab) 20 mg BID PO 06/19/16 21:00 07/19/16 20:59 06/20/16 08:01 20 MG Glimepiride (Amaryl Tab) 1 mg QDB PRN PO 06/19/16 19:00 07/19/16 18:59 Future Hold Pantoprazole Sodium (Protonix Tab) 40 mg BID PO 06/19/16 21:00 07/19/16 20:59 06/20/16 08:02 40 MG Polyethylene (Miralax Powder Packet) 17 gm DAILY PRN PO 06/19/16 19:00 07/19/16 18:59 Potassium Chloride (Klor-Con M10) 10 meq QAM PO 06/20/16 09:00 07/20/16 08:59 06/20/16 08:01 10 MEQ Budesonide/ Formoterol Fumarate (Symbicort 160/ 4.5 Inh) 2 puffs BID INH 06/19/16 21:00 07/19/16 20:59 06/20/16 08:05 2 PUFFS Insulin Aspart (novoLOG ASPART) SLIDING SCALE If C... ACHS SC 06/19/16 21:00 07/19/16 20:59 06/20/16 11:38 4 UNITS Glucose (Glucose 40% Gel) 15-30 GRAMS 15 GRAMS... UD PRN PO 06/19/16 18:30 07/19/16 18:29 Glucose (Glucose Chew Tab) 4-8 Tablets 4 Tabl... UD PRN PO 06/19/16 18:30 07/19/16 18:29 Dextrose (Dextrose 50% 50ML Syringe) 25-50ML OF 50% DW IV FOR... UD PRN IV 06/19/16 18:30 07/19/16 18:29 Glucagon (Glucagon Inj) 1 mg UD PRN SQ 06/19/16 18:30 07/19/16 18:29 Atorvastatin Calcium (Lipitor Tab) 80 mg HS PO 06/19/16 21:00 07/19/16 20:59 06/19/16 20:32 80 MG Prednisone (PredniSONE TAB) 20 mg DAILY PO 06/20/16 10:30 3/11/17 10:29 06/20/16 10:39 20 MG
[2016-06-20] MEDS: DOCUSATE SODIUM 100 MG CAP PO SCH (20:34)
[2016-06-20] MEDS: ENOXAPARIN 40 MG/0.4 ML SYR SC SCH (20:35)
[2016-06-21] VITALS (8 sets, daily range): BP systolic 96–117; BP diastolic 63–67; PULSE 61–74; TEMP 36.6–36.7; O2SAT 62–98
[2016-06-21] MEDS: ALBUT/IPRATROP 3MG/0.5MG NEB 3 ML VIAL INH SCH ×4 (07:35→19:38)
[2016-06-21] MEDS: INSULIN ASPART 100 UNITS/ML 3 ML PEN SC SCH ×4 (07:53→20:58)
[2016-06-21] MEDS: ZAFIRLUKAST TAB 20 MG TAB PO SCH ×2 (08:06→21:00)
[2016-06-21] MEDS: BUDESONIDE/FORMOTEROL FUMARATE 160/4.5 60 PUFFS/INHALER INH SCH ×2 (08:06→21:02)
[2016-06-21] MEDS: CITALOPRAM 40 MG TAB PO SCH (08:07)
[2016-06-21] MEDS: CYANOCOBALAMIN 500 MCG TAB (VIT B-12) PO SCH (08:07)
[2016-06-21] MEDS: PANTOprazole SOD 40 MG TAB PO SCH ×2 (08:07→21:00)
[2016-06-21] MEDS: FUROSEMIDE 40 MG TAB PO SCH (08:07)
[2016-06-21] MEDS: CHOLECALCIFEROL 1000 INTER.UNIT TAB PO SCH ×2 (08:07→21:00)
[2016-06-21] MEDS: POTASSIUM CHLORIDE 10 MEQ TABCR PO SCH (08:07)
[2016-06-21] MEDS: HYDROCODONE/ACETAMOPHEN 5/325MG TAB PO PRN ×3 (08:08→20:18)
--- NOTE | 2016-06-21 08:20 | PULMONARY PROGRESS NOTE ---
DATE: 06/21/2016 DATE: 06/21/2016. SUBJECTIVE: The patient is comfortable this morning. She is lying on her left side with CPAP in place with eye shades in place. Respiratory rate is 14. She denies cough or chest pain, continues to have pain and has been getting morphine and other pain medications pretty much around the clock. The pain is generalized. We discussed cutting back on the pain medications because of the risk of reflux and becoming accustomed to those medications. She seems to understand. OBJECTIVE: VITAL SIGNS: Stable and she is afebrile. HEAD, EYES, EARS, NOSE, AND THROAT: Posterior pharynx is unremarkable with no thrush noted. NECK: There is no neck vein distention, no subcutaneous emphysema is noted. HEART: Regular rate and rhythm. LUNGS: Reveal very minimal wheezing right at the end of expiration in the right mid lung field posterior, otherwise are clear. Forced expiratory maneuver is about 3 seconds with no other wheezing noted. There is no fremitus or dullness to percussion. ABDOMEN: Soft, nontender. She is obese. EXTREMITIES: There is no cyanosis, clubbing or edema. LABORATORY WORK: Noted. IMPRESSION: 1. Bronchial asthma with exacerbation. 2. Chronic pain. 3. Obesity. 4. Obstructive sleep apnea. RECOMMENDATION: Continue with her present medications, especially the inhalers. I tapered her prednisone slowly over about 3-4 weeks. She could come down to about 25-30 mg rather than 20 mg and taper down by perhaps 5 mg every 3 days. It seems when she gets down to 15 mg a day she has trouble. I have asked her to increase her activity as much as possible and walk in the hallway to see how she does in anticipation of perhaps a discharge tomorrow at her request. Otherwise she is stable.
--- NOTE | 2016-06-21 17:12 | Progress Note ---
Medicine Progress Note Date & Time of Visit: Jun 21, 2016 at 17:07. Subjective Patient seen and examined. Notes back pain today. Does not feel ready to go home today. Asking to go home tomorrow. Objective Last 8 Hrs Date Time Temp Pulse Resp B/P Pulse Ox O2 Delivery O2 Flow Rate FiO2 06/21/16 15:32 36.6 74 16 106/63 97 Nasal Cannula 2.0 06/21/16 15:16 72 12 98 Nasal Cannula 2.0 06/21/16 11:22 72 12 98 Nasal Cannula 2.0 06/21/16 10:56 Nasal Cannula 2.0 Physical Exam: General-awake; alert; NAD Eyes-EOMI; no scleral icterus Neck-no stridor; trachea midline Lungs-CTA bilaterally; no wheezes/crackles Heart-RRR; no m/r/g Abdomen-soft; NTND; nBS Extremities-no c/c/e; no deformity Neuro-no gross focal deficits Laboratory Results: Last 24 Hours Test 06/20/16 20:02 06/21/16 07:37 Bedside Glucose 125 mg/dl 113 mg/dl Assessment & Plan ACUTE ASTHMA/COPD EXACERBATION -CXR no consolidation and CT chest negative for PE -flu negative -transitioned from methylprednisolone to prednisone per Pulmonary recommendations -discontinued doxycycline -continue Symbicort and Zafirlukast -continue nebulizers -hx of AAT deficiency, receives IVIG monthly (last infusion was 06/18/16) -pulmonary consulted CHEST TIGHTNESS -low suspicion for cardiac etiology; likely respiratory related (see above) -trop negative -EKG no ischemic change -documented allergy to ASA ELEVATED D-DIMER R/O PE -ddimer>450 -CT chest negative for PE -bilateral LE US negative for DVT STEROID INDUCED DM -hold oral agents, utilize SSI while hospitalized CHRONIC BACK PAIN -following with spine ortho as an outpatient -cont home dose of [place] CHRONIC ANEMIA -hgb around baseline -pt currently denies active bleed GERD -cont PPI DVT PROPHYLAXIS -subq Lovenox CODE STATUS -FULL CODE Anticipate discharge tomorrow. Consultants: Pulmonary Procedures: CT chest 1. No CT evidence of acute pulmonary embolism 2. No evidence of pathologic adenopathy 3. No evidence of focal pulmonary consolidation Bilateral LE venous doppler No DVT within the right or left lower extremity Current Inpatient Medications: Current Inpatient Medications Medications (Trade) Dose Ordered Sig/Kaye Route Start Time Stop Time Status Last Admin Dose Admin Ioversol (Optiray 320) 125 ml UD PRN IV 06/19/16 16:00 06/23/16 15:59 Enoxaparin Sodium (Lovenox Inj) 40 mg Q24H SC 06/19/16 21:00 07/19/16 20:59 Acetaminophen (Tylenol Tab) 650 mg Q4H PRN PO 06/19/16 18:15 07/19/16 18:14 Ondansetron HCl (Zofran Inj) 4 mg Q6H PRN IV 06/19/16 18:15 07/19/16 18:14 Nitroglycerin (Nitrostat Tab) 0.4 mg UD PRN SL 06/19/16 18:15 07/19/16 18:14 Albuterol/ Ipratropium (Duoneb) 3 ml QIDR INH 06/19/16 20:00 07/19/16 19:59 06/21/16 15:16 3 ML Alendronate Sodium (Fosamax Tab) 70 mg Sa@0630 PO 06/22/16 06:30 07/22/16 06:29 Cholecalciferol (Vitamin D Tab) 1,000 inter.unit BID PO 06/19/16 21:00 07/19/16 20:59 06/21/16 08:07 1,000 INTER.UNIT Citalopram Hydrobromide (celeXA TAB) 40 mg QAM PO 06/20/16 09:00 07/20/16 08:59 06/21/16 08:07 40 MG Cyanocobalamin (Vitamin B-12 Tab) 1,000 mcg QAM PO 06/20/16 09:00 07/20/16 08:59 06/21/16 08:07 1,000 MCG Docusate Sodium (coLACE CAP) 200 mg HS PO 06/19/16 21:00 07/19/16 20:59 06/20/16 20:34 200 MG Furosemide (Lasix Tab) 40 mg QAM PO 06/20/16 09:00 07/20/16 08:59 06/21/16 08:07 40 MG Acetaminophen/ Hydrocodone Bitart ([place] 5/325 Tab) 2 tab Q6H PRN PO 06/19/16 18:15 2/22/17 18:14 06/21/16 13:48 2 TAB Lorazepam (Ativan Tab) 2 mg HS PRN PO 06/19/16 18:15 07/19/16 18:14 06/20/16 20:32 2 MG Lorazepam (Ativan Tab) 1 mg QAM PRN PO 06/19/16 18:15 07/19/16 18:14 Zafirlukast (Accolate Tab) 20 mg BID PO 06/19/16 21:00 07/19/16 20:59 06/21/16 08:06 20 MG Glimepiride (Amaryl Tab) 1 mg QDB PRN PO 06/19/16 19:00 07/19/16 18:59 Future Hold Pantoprazole Sodium (Protonix Tab) 40 mg BID PO 06/19/16 21:00 07/19/16 20:59 06/21/16 08:07 40 MG Polyethylene (Miralax Powder Packet) 17 gm DAILY PRN PO 06/19/16 19:00 07/19/16 18:59 Potassium Chloride (Klor-Con M10) 10 meq QAM PO 06/20/16 09:00 07/20/16 08:59 06/21/16 08:07 10 MEQ Budesonide/ Formoterol Fumarate (Symbicort 160/ 4.5 Inh) 2 puffs BID INH 06/19/16 21:00 07/19/16 20:59 06/21/16 08:06 2 PUFFS Insulin Aspart (novoLOG ASPART) SLIDING SCALE If C... ACHS SC 06/19/16 21:00 07/19/16 20:59 06/21/16 12:24 4 UNITS Glucose (Glucose 40% Gel) 15-30 GRAMS 15 GRAMS... UD PRN PO 06/19/16 18:30 07/19/16 18:29 Glucose (Glucose Chew Tab) 4-8 Tablets 4 Tabl... UD PRN PO 06/19/16 18:30 07/19/16 18:29 Dextrose (Dextrose 50% 50ML Syringe) 25-50ML OF 50% DW IV FOR... UD PRN IV 06/19/16 18:30 07/19/16 18:29 Glucagon (Glucagon Inj) 1 mg UD PRN SQ 06/19/16 18:30 07/19/16 18:29 Prednisone (PredniSONE TAB) 20 mg DAILY PO 06/20/16 10:30 07/20/16 10:29 06/21/16 08:07 20 MG
[2016-06-21] MEDS: DOCUSATE SODIUM 100 MG CAP PO SCH (20:59)
[2016-06-21] MEDS: ENOXAPARIN 40 MG/0.4 ML SYR SC SCH (21:00)
[2016-06-22] MEDS ORDERED: ALENDRONATE SODIUM 70 MG TAB PO SCH (06:30)
[2016-06-22 07:18] VITALS: BP 104/64; PULSE 58; TEMP 36.6; O2SAT 94
[2016-06-22 07:27] VITALS: PULSE 66; O2SAT 98
[2016-06-22] MEDS: ALBUT/IPRATROP 3MG/0.5MG NEB 3 ML VIAL INH SCH ×2 (07:27→11:18)
[2016-06-22] MEDS: HYDROCODONE/ACETAMOPHEN 5/325MG TAB PO PRN (07:50)
[2016-06-22 07:53] VITALS: BP 110/70; PULSE 66; TEMP 36.7; O2SAT 92
[2016-06-22 07:54] VITALS: O2SAT 98
[2016-06-22] MEDS: INSULIN ASPART 100 UNITS/ML 3 ML PEN SC SCH (08:29)
[2016-06-22] MEDS: CITALOPRAM 40 MG TAB PO SCH (08:44)
[2016-06-22] MEDS: ZAFIRLUKAST TAB 20 MG TAB PO SCH (08:44)
[2016-06-22] MEDS: POTASSIUM CHLORIDE 10 MEQ TABCR PO SCH (08:45)
[2016-06-22] MEDS: FUROSEMIDE 40 MG TAB PO SCH (08:46)
[2016-06-22] MEDS: PANTOprazole SOD 40 MG TAB PO SCH (08:47)
[2016-06-22] MEDS: CYANOCOBALAMIN 500 MCG TAB (VIT B-12) PO SCH (08:48)
[2016-06-22] MEDS: CHOLECALCIFEROL 1000 INTER.UNIT TAB PO SCH (08:49)
[2016-06-22] MEDS: BUDESONIDE/FORMOTEROL FUMARATE 160/4.5 60 PUFFS/INHALER INH SCH (08:50)
[2016-06-22 09:22] VITALS: O2SAT 92
[2016-06-22] MEDS ORDERED: PRED10TA PO (09:38)
--- NOTE | 2016-06-22 09:48 | Discharge Instructions ---
Discharge Instructions Admission Reason for Admission: Hypoxia Discharge Discharge Diagnosis / Problem: Bronchial asthma exacerbation Discharge Goals Goal(s): Improve disease control Activity Recommendations Activity Limitations: resume your previous activity . Instructions / Follow-Up Instructions / Follow-Up Please schedule a hospital discharge follow up appointment with Pulmonary Semaj Birch. Please follow up with Family Medicine Petra Kelly on June 26 at 1:20pm. Please take prednisone 20mg daily until your follow up appointment with Semaj Birch. Current Hospital Diet Patient's current hospital diet: AHA Diet (Heart Healthy) Discharge Diet Recommended Diet: AHA Diet (Heart Healthy) Pending Studies Studies pending at discharge: no Medical Emergencies . Who to Call and When: Medical Emergencies: If at any time you feel your situation is an emergency, please call 911 immediately. . Non-Emergent Contact Non-Emergency issues call your: Primary Care Provider, Supervisor Ditching . . "Provider Documentation" section prepared by Osiris Ford. VTE Core Measure Inpt VTE Proph given/why not?: Enoxaparin (Lovenox)SQ
[2016-06-22 10:01] VITALS: BP 110/70; PULSE 66; TEMP 36.7; O2SAT 98
--- NOTE | 2016-06-22 18:36 | Discharge Summary ---
Discharge Summary Admission Date: Jun 19, 2016 at 18:58 Discharge Date: Jun 22, 2016 Discharge Disposition: Home Principal Diagnosis: Asthma exacerbation Procedures: CT chest 1. No CT evidence of acute pulmonary embolism 2. No evidence of pathologic adenopathy 3. No evidence of focal pulmonary consolidation Bilateral LE venous doppler No DVT within the right or left lower extremity Consultations: Pulmonary Medication Reconciliation Changed Medications: Prednisone (Prednisone) 10 Mg Tab 20 MG PO QAM for 30 Days (Changed from: 15 MG; Removed Quantity) Continued Medications: Alendronate Sodium (Fosamax) 70 Mg Tab 70 MG PO WK, TAB TAKE THIS MEDICATION EVERY FRIDAY. Budesonide/Formoterol Fumarate (Symbicort 160/4.5 Inhaler ) Aero 2 PUFFS INH BID, INHALER Cholecalciferol (Vitamin D) 1,000 Unit Tab 1000 UNIT PO BID Citalopram Hydrobromide (Celexa) 40 Mg Tab 40 MG PO QAM Cyanocobalamin (Vitamin B-12) 1,000 Mcg Tab 1000 MCG PO QAM, TAB Docusate Sodium (Colace) 100 Mg Cap 200 MG PO HS, CAP Epinephrine (Epipen 2-[place]hawn) 0.3 Mg Inj 0.3 MG IM UD PRN for ALLERGIC REACTION Furosemide (Furosemide) 40 Mg Tab 40 MG PO QAM Glimepiride (Glimepiride) 1 Mg Tab 1 TAB PO DAILY PRN for glucose > 110 for 30 Days, #30 TAB 5 Refills Hydrocodone/Acetaminophen 5MG/325MG ([place] 5MG/325MG) Tab 1-2 TABS PO Q4-6H PRN for Pain, TAB Immune Globulin (Human) Iv (Privigen) 5 Gm/50 Ml Inj Unknown Dose IV MONTHLY Ipratropium-Albuterol (Duoneb) 3 Ml Nebu 1 TREATMENT INH Q4H PRN for PRN, INHA Lorazepam (Ativan) 1 Mg Tab 1 MG PO QAM PRN for Anxiety, TAB Lorazepam (Lorazepam) 1 Mg Tab 2 MG PO HS PRN for Anxiety Omeprazole (Prilosec) 20 Mg Cap 20 MG PO BID Oxygen (Oxygen) Gas 2 LITERS NA PRN Polyethylene Glycol 3350 (Miralax) 1 Pow Pow 17 GM PO DAILY PRN for Constipation, #255 GM Potassium Chloride (Potassium Chloride Er) 10 Meq Tab 10 MEQ PO QAM TAKEN WITH FUROSEMIDE Tiotropium [place] (Spiriva Handihaler) 5 Puff/90 Mcg Aerp 1 PUFF INH QAM for 30 Days, #30 INHALER 5 Refills Zafirlukast (Zafirlukast) 20 Mg Tab 20 MG PO BID Admission Information HPI (per Admitting provider): This is a 55 y/o female with underlying Asthma/COPD and other problems as outlined below who presents to the ED c/o worsening SOB since yesterday. Pt has frequent admissions for her exacerbations. Last admission was 05/08-05/14. She was discharged on a prednisone taper and has stayed on 15mg PO daily per her leaf conditioner helper. Pt reports that despite the steroids her SOB started worsening again yesterday. Sxs are assoc with chest tightness and wheezing. She has been using her inhalers and nebs which has only given her temporary relief. She denies cough or sputum production. Pt has a history of PE not on anticoagulation. Pt denies fever/chills, chest pain, abd pain, N/V, bowel or bladder issues, LE edema, calf pain, lightheadedness/dizziness. In the ED, saturations dropped into the 80s with ambulation. She was treated with nebulizer and solumedrol. Pt is stable and will be admitted for further evaluation and treatment. Physical Exam (per Admitting): General Appearance: WD/WN, no apparent distress, + pertinent finding (Pt is sitting up comfortably in bed ) Head: normocephalic, atraumatic Eyes: normal inspection ENT: hearing grossly normal Neck: supple Respiratory/Chest: chest non-tender, no respiratory distress, no accessory muscle use, + wheezing (expiratory wheezes) Cardiovascular: regular rate, rhythm, no edema, no murmur Abdomen/GI: normal bowel sounds, non tender, soft Back: normal inspection Extremities/Musculoskelatal: normal inspection, no calf tenderness, no pedal edema Neurologic/Psych: alert, normal mood/affect, oriented x 3 Skin: normal color, warm/dry Hospital Course Patient admitted with asthma exacerbation. Pulmonary was consulted. CXR was negative for consolidation and CT chest was negative for PE. Venous dopplers were negative for DVT. ACS r/o was negative. Flu was negative. Methylprednisolone, started on admission, was transitioned to prednisone, with plans for a slow prednisone taper. Patient was instructed to take prednisone 20mg daily upon discharge until Pulmonary follow up. Doxycycline, which was started on admission, was discontinued as per Pulmonary recommendations. Patient was continued on her home medication regimen. Patient deemed stable for discharge with Family Medicine and Pulmonary follow up. PE on discharge: General- awake; alert; NAD Eyes- EOMI; no scleral icterus Neck- no stridor; trachea midline Lungs- CTA bilaterally; no wheezes/crackles Heart- RRR; no m/r/g Abdomen- soft; NTND; nBS Back- no gross abnormalities Extremities- no c/c/e Neuro- no gross focal deficits Skin- no appreciable rash . Total time spent on discharge = This includes examination of the patient, discharge planning, medication reconciliation, and communication with other providers. Discharge Instructions Discharge Instructions Admission Reason for Admission: Hypoxia Discharge Discharge Diagnosis / Problem: Bronchial asthma exacerbation Discharge Goals Goal(s): Improve disease control Activity Recommendations Activity Limitations: resume your previous activity . Instructions / Follow-Up Instructions / Follow-Up Please schedule a hospital discharge follow up appointment with Pulmonary Semaj Birch. Please follow up with Family Medicine Petra Kelly on June 26 at 1:20pm. Please take prednisone 20mg daily until your follow up appointment with Semaj Birch. Current Hospital Diet Patient's current hospital diet: AHA Diet (Heart Healthy) Discharge Diet Recommended Diet: AHA Diet (Heart Healthy) Pending Studies Studies pending at discharge: no Medical Emergencies . Who to Call and When: Medical Emergencies: If at any time you feel your situation is an emergency, please call 911 immediately. . Non-Emergent Contact Non-Emergency issues call your: Primary Care Provider, Armhole Presser . . "Provider Documentation" section prepared by Osiris Ford. VTE Core Measure Inpt VTE Proph given/why not?: Enoxaparin (Lovenox)SQ Additional Copies To Petra Kelly, Semaj Valdez PA-C
[2016-07-19] MEDS ORDERED: PRD20 PO ×2 (11:30)
[2016-07-19] MEDS ORDERED: METO5TAB3 PO (11:30)
[2016-07-19] MEDS ORDERED: XPNINS1255 INH (11:30)
[2016-08-06] MEDS ORDERED: PRED10TA PO (08:31)
[2016-08-23] MEDS ORDERED: PRED1SUS OPR (08:55)
[2016-08-23] MEDS ORDERED: BROM0.0911 OPR (08:55)
[2016-10-30] MEDS ORDERED: FLX5 PO (11:47)
[2016-11-27] MEDS ORDERED: IPRASOL4 NEB (08:31)
[2016-11-27] MEDS ORDERED: VNTHFA/IN INH (08:31)
[2016-11-27] MEDS ORDERED: [UNRECOGNIZED DRUG - CODE] IV (14:40)
[2016-11-27] MEDS ORDERED: PRED10TA PO ×2 (15:15→18:42)
[2016-11-27] MEDS ORDERED: CHOL100010 PO (15:47)
[2016-11-27] MEDS ORDERED: EPP3/2 IM (16:07)
[2016-11-27] MEDS ORDERED: OXGN (16:13)
[2016-11-27] MEDS ORDERED: OMEP20CA9 PO (16:25)
[2016-11-27] MEDS ORDERED: FLX/5 PO (16:49)
[2016-11-27] MEDS ORDERED: CITA40TA4 PO (16:49)
[2016-11-27] MEDS ORDERED: DOCU-94 PO (17:39)
[2016-11-27] MEDS ORDERED: ATV/1 PO (18:40)
[2016-11-27] MEDS ORDERED: CYAN10005 PO (19:15)
[2016-11-27] MEDS ORDERED: ATV1 PO (20:38)
[2016-11-27] MEDS ORDERED: HYDR-5688 PO (20:40)
[2016-11-29] MEDS ORDERED: PRD20 PO (09:07)
[2016-11-29] MEDS ORDERED: ZTHM250 PO (09:07)
== END 2016-06-22 11:50 | disposition home or self-care (01) | DRG 191 ==
LOC: ENRESERVDT → ENRESERVTM → C.EDB 13:30 → C.2E 18:58 → C.MS2W 06-20 14:56
PROVIDERS: ADMIT Hospitalist; ATTEND Internal Medicine
DX: J44.1 Chronic obstructive pulmonary disease with (acute) exacerbation (principal); J45.901 Unspecified asthma with (acute) exacerbation; D84.9 Immunodeficiency, unspecified; K21.9 Gastro-esophageal reflux disease without esophagitis; D64.9 Anemia, unspecified; F41.9 Anxiety disorder, unspecified; G47.33 Obstructive sleep apnea (adult) (pediatric); E66.9 Obesity, unspecified; M54.9 Dorsalgia, unspecified; G89.29 Other chronic pain; F32.9 Major depressive disorder, single episode, unspecified; M81.0 Age-related osteoporosis without current pathological fracture; E78.5 Hyperlipidemia, unspecified; R79.1 Abnormal coagulation profile; R07.89 Other chest pain; E09.9 Drug or chemical induced diabetes mellitus without complications; M51.36 Other intervertebral disc degeneration, lumbar region; Z86.39 Personal history of other endocrine, nutritional and metabolic disease; Z87.19 Personal history of other diseases of the digestive system; Z86.711 Personal history of pulmonary embolism; Z90.49 Acquired absence of other specified parts of digestive tract; Z87.09 Personal history of other diseases of the respiratory system; Z79.83 Long term (current) use of bisphosphonates; Z79.51 Long term (current) use of inhaled steroids; Z79.899 Other long term (current) drug therapy; Z14.8 Genetic carrier of other disease; Z99.81 Dependence on supplemental oxygen; Z87.891 Personal history of nicotine dependence; Z79.52 Long term (current) use of systemic steroids; Z68.34 Body mass index [BMI] 34.0-34.9, adult; Z79.891 Long term (current) use of opiate analgesic; Z79.84 Long term (current) use of oral hypoglycemic drugs

== ENCOUNTER 2016-07-15 16:36 | Inpatient (IN) | payer OTHER ==
[~2016-07-15] VITALS: Ht 165.1 cm; Wt 94.8 kg
[~2016-07-15 16:36] MED LIST changes: -ALBU1AER9 INH; -CHOL100010 PO; +PRED10TA PO; -PRED20TA2 PO
[2016-07-15] MEDS ORDERED: METHYLPREDNISOLONE 125 MG VIAL IV STA (17:05)
[2016-07-15] MEDS ORDERED: HYDROCODONE/ACETAMOPHEN 5/325MG TAB PO ONE ×2 (17:15→21:49)
[2016-07-15] MEDS ORDERED: ALBUT/IPRATROP 3MG/0.5MG NEB 3 ML VIAL INH ONE (17:15)
[2016-07-15 17:42] LABS: BASO % 0.6 %; BASO ABS # 0.05 K/uL (0-0.2); COMPLETE YES; EOS % 4.1 %; HEMATOCRIT 32.1 % (37-47); IG% 0.2 %; LYMPH % 24.3 %; LYMPH ABS # 2.06 K/uL (1.2-3.4); MEAN CELL VOLUME 78.5 fL (80-100); MEAN CORPUSCULAR HEMOGLOBIN 23.2 pg (25-34); MEAN CORPUSCULAR HGB CONC 29.6 g/dl (32-36); MEAN PLATELET VOLUME 11.2 fL (7.4-10.4); MONO % 9.2 %; NEUT % 61.6 %; PLATELET COUNT 210 K/uL (130-400); RED BLOOD COUNT 4.09 M/uL (4.2-5.4); WHITE BLOOD COUNT 8.47 K/uL (4.8-10.8)
[2016-07-15 17:47] VITALS: PULSE 75; O2SAT 95
--- NOTE | 2016-07-15 18:05 | DIAGNOSTIC IMAGING REPORT ---
TWO VIEW CHEST CLINICAL HISTORY: Asthma. FINDINGS: PA and lateral chest radiographs are compared to chest x-ray and chest CT dated 06/19/2016. The PA view is degraded by patient rotation. A left subclavian central venous infusion port is unchanged in position. The cardiomediastinal silhouette is unremarkable. There is atherosclerotic calcification of the thoracic aorta. Chronic interstitial thickening and elevation of the right hemidiaphragm are similar to previous. There is minimal bibasilar atelectasis. No airspace consolidation, pleural effusion, or pneumothorax is seen. The skeletal structures are osteopenic. The bony thorax is grossly intact. IMPRESSION: No acute cardiopulmonary abnormality and no significant change from 06/19/2016. Electronically signed by: Nathanael Rutherford M.D. 07/15/2016 6:04 PM Dictated Date/Time: 07/15/2016 6:01 PM
[2016-07-15 18:07] LABS: BUN/CREATININE RATIO 16.7 (10-20); CALCIUM 8.5 mg/dl (8.5-10.1); CREATININE 0.66 mg/dl (0.60-1.20); POTASSIUM 3.6 mmol/L (3.5-5.1)
[2016-07-15 18:40] LABS: VEN BLD GAS O2 SATURATION 77.5 %; VEN BLOOD GAS BASE EXCESS 5.1 mmol/L
--- NOTE | 2016-07-15 19:06 | EMERGENCY ROOM VISIT NOTE ---
ED Visit Note First contact with patient: 19:01 This Patient was discussed with the physician Cake Cutter Machine, Kristian Calvo PA-C. The pertinent historical and physical exam findings were confirmed. I agree with the studies ordered and with the interpretations of these studies. I agree with the disposition and care plan.
[2016-07-15 19:51] LABS: URINE APPEARANCE CLEAR (CLEAR); URINE BILIRUBIN NEG (NEG); URINE COLOR YELLOW; URINE NITRITE NEG (NEG); URINE PH 5.5 (4.5-7.5); URINE SPECIFIC GRAVITY 1.008 (1.000-1.030); UROBILINOGEN NEG (NEG); ZZUR CULT IF INDIC CLEAN CATCH NO
[2016-07-15 19:55] LABS: MANUAL MICROSCOPIC REQUIRED? NO; REVIEW REQ? NO
[2016-07-15 20:10] LABS: BENZODIAZEPINE, URINE NEG (NEG); COCAINE,URINE NEG (NEG); PHENCYCLIDINE, URINE NEG (NEG)
[2016-07-15 21:18] LABS: ARTERIAL BLD GAS O2 SATURATION 91.3 % (90-95); ARTERIAL BLOOD GAS BASE EXCESS 3.6 mEq/L (-9-1.8); ARTERIAL BLOOD GAS HCO3 27 mmol/L (19-24); ARTERIAL BLOOD GAS PO2 69 mm/Hg (80-95); ARTERIAL BLOOD GAS pH 7.48 (7.35-7.45)
[2016-07-15 21:20] LABS: ALLEN TEST POS (POS); O2 ADMINISTRATION ROOM AIR
[2016-07-15 21:21] LABS: PARTIAL THROMBOPLASTIN RATIO 0.9
[2016-07-15 21:24] LABS: MAGNESIUM 1.7 mg/dl (1.8-2.4)
[2016-07-15] MEDS ORDERED: POTASSIUM CHLORIDE 10 MEQ TABCR PO STA ×2 (21:24→21:49)
--- NOTE | 2016-07-15 21:27 | History and Physical ---
History & Physical Date & Time of Service: Jul 15, 2016 at 21:02 Chief Complaint: Shortness of Breath Primary Care Physician: Petra Kelly History of Present Illness 55 year old female who presents to the ER with shortness of breath. Patient has history of asthma and is well known to our service. Patient was admitted to [facility] 06/19 - 06/22 for asthma exacerbation. At discharge, her chronic prednisone was increased to 20mg daily from 15mg. 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 Patient reports she started to get short of breath 4 days ago. She also has been wheezing. She denies cough or sputum production. No fever or chills. Patient's symptoms have persisted despite use of her nebulizer. She reports an increase in her chronic back pain from the asthma flare up. She denies chest pain. No lightheadedness, dizziness, diaphoresis, or syncopal events. She denies abdominal pain, nausea, vomiting, or diarrhea. No urinary symptoms. In the ER, patient is saturating well on room air. She was given IV solu-medrol and nebulizer. 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 (13) Microscopic hematuria Permanent Comment: evaluated by Urology; no significant path per patient Status: Chronic (14) Osteoporosis Status: Chronic (15) Sleep apnea Status: Chronic (16) Vertebral fracture, closed Status: Chronic Surgical Problems: (1) H/O sinus surgery Status: Chronic (2) History of carpal tunnel surgery Status: Chronic (3) S/P cardiac cath Status: Chronic (4) S/P herniorrhaphy Status: Chronic (5) Status post appendectomy Status: Chronic (6) Status post hernia repair Status: Chronic (7) Status post partial colectomy Status: Chronic (8) Status post thermoplasty Status: Chronic (9) Status post thermoplasty Status: Chronic Family History FH: heart disease FATHER FH: sleep apnea MOTHER FHx: cancer FHx: gallbladder disease Hypertension MOTHER Kidney disease MOTHER Social History Smoking Status: Former Smoker Alcohol Use: none Immunizations History of Influenza Vaccine: Yes Influenza Vaccine Date: Jan 25, 2016 History of Tetanus Vaccine?: Yes Tetanus Immunization Date: Aug 16, 2007 History of Pneumococcal: Yes Pneumococcal Date: Jan 02, 2016 Allergies Coded Allergies: Aspirin (Verified Allergy, Intermediate, HIVES, 07/15/16) Ibuprofen (Verified Allergy, Intermediate, HIVES, 07/15/16) Levofloxacin (Verified Allergy, Intermediate, HIVES, 07/15/16) Iodinated Diagnostic Agents (Verified Allergy, Unknown, HIVES, 07/15/16) Pregabalin (Unverified Allergy, Unknown, SEVERE DEPRESSION, 07/15/16) Zolpidem (Verified Adverse Reaction, Intermediate, HALLUCINATIONS, 07/15/16) Gabapentin (Verified Adverse Reaction, Mild, GOOFY THOUGHTS, 07/15/16) Home Medications Scheduled Alendronate Sodium (Fosamax), 70 MG PO WK Budesonide/Formoterol Fumarate (Symbicort 160/4.5 Inhaler ), 2 PUFFS INH BID Cholecalciferol (Vitamin D), 1,000 UNIT PO BID Citalopram Hydrobromide (Celexa), 40 MG PO QAM Cyanocobalamin (Vitamin B-12), 1,000 MCG PO QAM Docusate Sodium (Colace), 200 MG PO HS Furosemide (Furosemide), 40 MG PO QAM Immune Globulin (Human) Iv (Privigen), Unknown Dose IV MONTHLY Omeprazole (Prilosec), 20 MG PO BID Oxygen (Oxygen), 2 LITERS NA PRN Potassium Chloride (Potassium Chloride Er), 10 MEQ PO QAM Prednisone (Prednisone), 20 MG PO QAM Tiotropium [place] (Spiriva Handihaler), 1 PUFF INH QAM Zafirlukast (Zafirlukast), 20 MG PO BID Scheduled PRN Epinephrine (Epipen 2-Deshawn), 0.3 MG IM UD PRN for ALLERGIC REACTION Glimepiride (Glimepiride), 1 TAB PO DAILY PRN for glucose > 110 Hydrocodone/Acetaminophen 5MG/325MG ([place] 5MG/325MG), 1-2 TABS PO Q4-6H PRN for Pain Ipratropium-Albuterol (Duoneb), 1 TREATMENT INH Q4H PRN for PRN Lorazepam (Ativan), 1 MG PO QAM PRN for Anxiety Lorazepam (Lorazepam), 2 MG PO HS PRN for Anxiety Polyethylene Glycol 3350 (Miralax), 17 GM PO DAILY PRN for Constipation Review of Systems 10 point review of systems was completed with the pertinent positives and negatives noted per the HPI Physical Exam Vital Signs Date Time Temp Pulse Resp B/P Pulse Ox O2 Delivery O2 Flow Rate FiO2 07/15/16 19:36 104 20 123/82 90 Room Air 07/15/16 17:47 75 18 95 Room Air 07/15/16 17:44 69 25 136/83 93 Room Air 07/15/16 17:43 92 Room Air 07/15/16 17:36 68 07/15/16 17:25 92 Room Air 07/15/16 16:40 36.8 77 22 162/87 97 Room Air General Appearance: no apparent distress Head: normocephalic Eyes: normal inspection ENT: hearing grossly normal Neck: supple, no JVD Respiratory/Chest: lungs clear, normal breath sounds, no respiratory distress Cardiovascular: regular rate, rhythm, no edema, normal peripheral pulses Abdomen/GI: normal bowel sounds, non tender, soft Extremities/Musculoskelatal: normal inspection, no calf tenderness Neurologic/Psych: no motor/sensory deficits, alert, normal mood/affect, oriented x 3 Skin: normal color, warm/dry Diagnostics Laboratory Results Results Past 24 Hours Test 07/15/16 17:25 07/15/16 17:30 07/15/16 17:41 07/15/16 18:28 Range/Units Influenza Type A Antigen Neg for Influ A NEG Influenza Type B Antigen Neg for Influ B NEG White Blood Count 8.47 4.8-10.8 K/uL Red Blood Count 4.09 4.2-5.4 M/uL Hemoglobin 9.5 12.0-16.0 g/dL Hematocrit 32.1 37-47 % Mean Corpuscular Volume 78.5 80-100 fL Mean Corpuscular Hemoglobin 23.2 25-34 pg Mean Corpuscular Hemoglobin Concent 29.6 32-36 g/dl Platelet Count 210 130-400 K/uL Mean Platelet Volume 11.2 7.4-10.4 fL Neutrophils (%) (Auto) 61.6 % Lymphocytes (%) (Auto) 24.3 % Monocytes (%) (Auto) 9.2 % Eosinophils (%) (Auto) 4.1 % Basophils (%) (Auto) 0.6 % Neutrophils # (Auto) 5.21 1.4-6.5 K/uL Lymphocytes # (Auto) 2.06 1.2-3.4 K/uL Monocytes # (Auto) 0.78 0.11-0.59 K/uL Eosinophils # (Auto) 0.35 0-0.5 K/uL Basophils # (Auto) 0.05 0-0.2 K/uL RDW Standard Deviation 50.0 36.4-46.3 fL RDW Coefficient of Variation 17.4 11.5-14.5 % Immature Granulocyte % (Auto) 0.2 % Immature Granulocyte # (Auto) 0.02 0.00-0.02 K/uL Sodium Level 143 136-145 mmol/L Potassium Level 3.6 3.5-5.1 mmol/L Chloride Level 106 98-107 mmol/L Carbon Dioxide Level 29 21-32 mmol/L Anion Gap 8.0 3-11 mmol/L Blood Urea Nitrogen 11 7-18 mg/dl Creatinine 0.66 0.60-1.20 mg/dl Est Creatinine Clear Calc Drug Dose 108.7 ml/min Estimated GFR () 114.5 Estimated GFR (Non- 98.8 BUN/Creatinine Ratio 16.7 10-20 Random Glucose 90 70-99 mg/dl Calcium Level 8.5 8.5-10.1 mg/dl Total Bilirubin 0.4 0.2-1 mg/dl Aspartate Amino Transf (AST/SGOT) 12 15-37 U/L Alanine Aminotransferase (ALT/SGPT) 27 12-78 U/L Alkaline Phosphatase 52 45-117 U/L Total Protein 6.1 6.4-8.2 gm/dl Albumin 3.1 3.4-5.0 gm/dl Globulin 3.0 2.5-4.0 gm/dl Albumin/Globulin Ratio 1.0 0.9-2 Lipase 132 73-393 U/L Bedside Troponin I 0.000 0-0.045 ng/ml Venous Blood pH 7.43 7.36-7.41 Venous Blood Partial Pressure CO2 47 38.0-50.0 mmHg Venous Blood Partial Pressure O2 45 mmHg Venous Blood HCO3 30 mmol/L Venous Blood Oxygen Saturation 77.5 % Venous Blood Base Excess 5.1 mmol/L Test 07/15/16 19:23 07/15/16 20:37 Range/Units Urine Color YELLOW Urine Appearance CLEAR CLEAR Urine pH 5.5 4.5-7.5 Urine Specific [place] 1.008 1.000-1.030 Urine Protein NEG NEG Urine Glucose (UA) NEG NEG Urine Ketones NEG NEG Urine Occult Blood 2+ NEG Urine Nitrite NEG NEG Urine Bilirubin NEG NEG Urine Urobilinogen NEG NEG Urine Leukocyte Esterase NEG NEG Urine WBC (Auto) 0 0-5 /hpf Urine RBC (Auto) 0-4 0-4 /hpf Urine Hyaline Casts (Auto) 0 0-5 /lpf Urine Epithelial Cells (Auto) 5-10 0-5 /lpf Urine Bacteria (Auto) NEG NEG Urine Opiates Screen POS NEG Urine Methadone, Qualitative NEG NEG Urine Barbiturates NEG NEG Urine Phencyclidine (PCP) Level NEG NEG Ur Amphetamine/Methamphetamine NEG NEG MDMA (Ecstasy) Screen NEG NEG Urine Benzodiazepines Screen NEG NEG Urine Cocaine Metabolite NEG NEG Urine Marijuana (THC) NEG NEG Diagnostic Radiology CXR IMPRESSION: No acute cardiopulmonary abnormality and no significant change from 06/19/2016. Impression Assessment and Plan ASTHMA/COPD EXACERBATION - admit to med/surg - presenting with increasing shortness of breath for 4 days - has had several admissions in the past for similar symptoms, most recently 06/19-06/22 - no hypoxia; no signs of infection - IV steroids and around the clock nebs - continue Symbicort and Zafirlukast - hx of AAT deficiency, received IVIG monthly - pulmonary consult, input appreciated STEROID INDUCED DM - hold oral agents, utilize SSI while hospitalized - continue home dose of [place] DVT PROPHYLAXIS - SQ Lovenox DISPO - The patient will be placed as observation status for now until further work up is complete. Assessment/Plan IM ATTENDING : Patient seen and examined. Preceding documentation by CRISTOPHER Dumont, reviewed. In addition : ABG pH 7.48, pCO2 38, pO2 of 69 [address] chest : no PE FINAL ASSESSMENT AND PLAN as follows : 1. Acute hypoxemic failure secondary to asthma exacerbation steroid dependent dse hx AAT deficiency past tobacco abuse 2. XIAO sleep apnea on CPAP 3. prediabetes as per records, HgA1c of 6 last April 2016 4. chronic back pain secondary to thoracic compression fractures 5. hx postop PE sp coumadin 6. chronic anemia, hemoglobin at baseline 7. episodic choking on food poss esophageal dysfunction PCU supplemental O2 Solu-Medrol;, nebs RTC, p.r.n. Pulmonary consult. RE asthma exacerbation (Patient known to Dr. Chua) judicious narcotic use. ISS BG goal 140-180 swallow eval DVT prophylaxis, Lovenox subQ. Full code.
[2016-07-15] MEDS ORDERED: DiphenhydrAMINE INJ 25 MG in SYRINGE 0 ML IV ONE (21:30)
[2016-07-15] MEDS ORDERED: DiphenhydrAMINE HCL 50 MG/ML VIAL IV SCH (21:45)
--- NOTE | 2016-07-15 21:45 | EMERGENCY ROOM VISIT NOTE ---
History First contact with patient: 16:45 Chief Complaint: SHORTNESS OF BREATH Stated Complaint: ASTHMA RELATED History of Present Illness The patient is a 55 year old female who presents to the Emergency Room with complaints of asthma exacerbation and shortness of breath for the past 3 days. The patient states that her symptoms began on a Friday, but she had a wedding to attend on Friday and did not want miss the wedding. The patient has a history of asthma and has followed with Dr Chua and Semaj Birch PA-C locally. The patient is on 20 mg daily prednisone for her chronic asthma. She has not had fever or chills. She does feel a bandlike sensation across the front of her chest, which occurs when she has these exacerbations. The patient has been admitted multiple times to this facility for asthma exacerbations. She states that when she has asthma exacerbations she has exacerbation of chronic back pain. She takes daily Vicodin for her back pain, but is requesting morphine here in the department. She rates her current discomfort an 8/10. Review of Systems More than 10 systems were reviewed and otherwise negative with the exception of history of present illness. 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 (13) Microscopic hematuria (14) Osteoporosis (15) Respiratory failure, acute (16) Sleep apnea (17) Vertebral fracture, closed Surgical Problems: (1) H/O sinus surgery (2) History of carpal tunnel surgery (3) S/P cardiac cath (4) S/P herniorrhaphy (5) Status post appendectomy (6) Status post hernia repair (7) Status post partial colectomy (8) Status post thermoplasty (9) Status post thermoplasty Family History FH: heart disease FATHER FH: sleep apnea MOTHER FHx: cancer FHx: gallbladder disease Hypertension MOTHER Kidney disease MOTHER Social History Smoking Status: Former Smoker Alcohol Use: none Housing Status: lives with significant other Current/Historical Medications Scheduled Alendronate Sodium (Fosamax), 70 MG PO WK Budesonide/Formoterol Fumarate (Symbicort 160/4.5 Inhaler ), 2 PUFFS INH BID Cholecalciferol (Vitamin D), 1,000 UNIT PO BID Citalopram Hydrobromide (Celexa), 40 MG PO QAM Cyanocobalamin (Vitamin B-12), 1,000 MCG PO QAM Docusate Sodium (Colace), 200 MG PO HS Furosemide (Furosemide), 40 MG PO QAM Immune Globulin (Human) Iv (Privigen), Unknown Dose IV MONTHLY Omeprazole (Prilosec), 20 MG PO BID Oxygen (Oxygen), 2 LITERS NA PRN Potassium Chloride (Potassium Chloride Er), 10 MEQ PO QAM Prednisone (Prednisone), 20 MG PO QAM Tiotropium [place] (Spiriva Handihaler), 1 PUFF INH QAM Zafirlukast (Zafirlukast), 20 MG PO BID Scheduled PRN Epinephrine (Epipen 2-Deshawn), 0.3 MG IM UD PRN for ALLERGIC REACTION Glimepiride (Glimepiride), 1 TAB PO DAILY PRN for glucose > 110 Hydrocodone/Acetaminophen 5MG/325MG ([place] 5MG/325MG), 1-2 TABS PO Q4-6H PRN for Pain Ipratropium-Albuterol (Duoneb), 1 TREATMENT INH Q4H PRN for PRN Lorazepam (Ativan), 1 MG PO QAM PRN for Anxiety Lorazepam (Lorazepam), 2 MG PO HS PRN for Anxiety Polyethylene Glycol 3350 (Miralax), 17 GM PO DAILY PRN for Constipation Allergies Coded Allergies: Aspirin (Verified Allergy, Intermediate, HIVES, 07/15/16) Ibuprofen (Verified Allergy, Intermediate, HIVES, 07/15/16) Levofloxacin (Verified Allergy, Intermediate, HIVES, 07/15/16) Iodinated Diagnostic Agents (Verified Allergy, Unknown, HIVES, 07/15/16) Pregabalin (Unverified Allergy, Unknown, SEVERE DEPRESSION, 07/15/16) Zolpidem (Verified Adverse Reaction, Intermediate, HALLUCINATIONS, 07/15/16) Gabapentin (Verified Adverse Reaction, Mild, GOOFY THOUGHTS, 07/15/16) Physical Exam Vital Signs Date Time Temp Pulse Resp B/P Pulse Ox O2 Delivery O2 Flow Rate FiO2 07/15/16 19:36 104 20 123/82 90 Room Air 07/15/16 17:47 75 18 95 Room Air 07/15/16 17:44 69 25 136/83 93 Room Air 07/15/16 17:43 92 Room Air 07/15/16 17:36 68 07/15/16 17:25 92 Room Air 07/15/16 16:40 36.8 77 22 162/87 97 Room Air Physical Exam VITALS: Vitals are noted on the nurse's note and reviewed by myself. Vital signs stable. GENERAL: Well-developed, well-nourished, obese white female, who is in no acute distress and resting comfortably. Patient is cooperative with the examination. HEAD: Normocephalic atraumatic. NECK: Supple without nuchal rigidity. No lymphadenopathy. No thyromegaly. Cervical spine is nontender. HEART: Regular rate and rhythm without murmurs gallops or rubs. LUNGS: Scattered wheezing and rhonchi throughout ABDOMEN: Positive normal bowel sounds x 4. Soft, nontender, without masses or organomegaly. No guarding or rebound tenderness. MUSCULOSKELETAL: No muscle atrophy, erythema, or edema noted. Full range of motion without joint tenderness in all extremities. Medical Decision & Procedures ER Provider Diagnostic Interpretation: TWO VIEW CHEST CLINICAL HISTORY: Asthma. FINDINGS: PA and lateral chest radiographs are compared to chest x-ray and chest CT dated 06/19/2016. The PA view is degraded by patient rotation. A left subclavian central venous infusion port is unchanged in position. The cardiomediastinal silhouette is unremarkable. There is atherosclerotic calcification of the thoracic aorta. Chronic interstitial thickening and elevation of the right hemidiaphragm are similar to previous. There is minimal bibasilar atelectasis. No airspace consolidation, pleural effusion, or pneumothorax is seen. The skeletal structures are osteopenic. The bony thorax is grossly intact. IMPRESSION: No acute cardiopulmonary abnormality and no significant change from 06/19/2016. Laboratory Results 07/15/16 17:30 Red Blood Count 4.09, Mean Corpuscular Volume 78.5, Mean Corpuscular Hemoglobin 23.2, Mean Corpuscular Hemoglobin Concent 29.6, Mean Platelet Volume 11.2, Neutrophils (%) (Auto) 61.6, Lymphocytes (%) (Auto) 24.3, Monocytes (%) (Auto) 9.2, Eosinophils (%) (Auto) 4.1, Basophils (%) (Auto) 0.6, Neutrophils # (Auto) 5.21, Lymphocytes # (Auto) 2.06, Monocytes # (Auto) 0.78, Eosinophils # (Auto) 0.35, Basophils # (Auto) 0.05 07/15/16 17:30 Test 07/15/16 17:25 07/15/16 17:30 07/15/16 17:41 07/15/16 18:28 Influenza Type A Antigen Neg for Influ A (NEG) Influenza Type B Antigen Neg for Influ B (NEG) White Blood Count 8.47 K/uL (4.8-10.8) Red Blood Count 4.09 M/uL (4.2-5.4) Hemoglobin 9.5 g/dL (12.0-16.0) Hematocrit 32.1 % (37-47) Mean Corpuscular Volume 78.5 fL (80-100) Mean Corpuscular Hemoglobin 23.2 pg (25-34) Mean Corpuscular Hemoglobin Concent 29.6 g/dl (32-36) Platelet Count 210 K/uL (130-400) Mean Platelet Volume 11.2 fL (7.4-10.4) Neutrophils (%) (Auto) 61.6 % Lymphocytes (%) (Auto) 24.3 % Monocytes (%) (Auto) 9.2 % Eosinophils (%) (Auto) 4.1 % Basophils (%) (Auto) 0.6 % Neutrophils # (Auto) 5.21 K/uL (1.4-6.5) Lymphocytes # (Auto) 2.06 K/uL (1.2-3.4) Monocytes # (Auto) 0.78 K/uL (0.11-0.59) Eosinophils # (Auto) 0.35 K/uL (0-0.5) Basophils # (Auto) 0.05 K/uL (0-0.2) RDW Standard Deviation 50.0 fL (36.4-46.3) RDW Coefficient of Variation 17.4 % (11.5-14.5) Immature Granulocyte % (Auto) 0.2 % Immature Granulocyte # (Auto) 0.02 K/uL (0.00-0.02) Activated Partial Thromboplast Time 24.3 SECONDS (21.0-31.0) Partial Thromboplastin Ratio 0.9 D-Dimer 1310 ug/L FEU (0-500) Anion Gap 8.0 mmol/L (3-11) Est Creatinine Clear Calc Drug Dose 108.7 ml/min Estimated GFR () 114.5 Estimated GFR (Non- 98.8 BUN/Creatinine Ratio 16.7 (10-20) Calcium Level 8.5 mg/dl (8.5-10.1) Magnesium Level 1.7 mg/dl (1.8-2.4) Total Bilirubin 0.4 mg/dl (0.2-1) Aspartate Amino Transf (AST/SGOT) 12 U/L (15-37) Alanine Aminotransferase (ALT/SGPT) 27 U/L (12-78) Alkaline Phosphatase 52 U/L (45-117) Pro-B-Type Natriuretic Peptide 108 pg/ml (0-900) Total Protein 6.1 gm/dl (6.4-8.2) Albumin 3.1 gm/dl (3.4-5.0) Globulin 3.0 gm/dl (2.5-4.0) Albumin/Globulin Ratio 1.0 (0.9-2) Lipase 132 U/L (73-393) Bedside Troponin I 0.000 ng/ml (0-0.045) Venous Blood pH 7.43 (7.36-7.41) Venous Blood Partial Pressure CO2 47 mmHg (38.0-50.0) Venous Blood Partial Pressure O2 45 mmHg Venous Blood HCO3 30 mmol/L Venous Blood Oxygen Saturation 77.5 % Venous Blood Base Excess 5.1 mmol/L Test 07/15/16 19:23 07/15/16 21:04 Urine Color YELLOW Urine Appearance CLEAR (CLEAR) Urine pH 5.5 (4.5-7.5) Urine Specific [place] 1.008 (1.000-1.030) Urine Protein NEG (NEG) Urine Glucose (UA) NEG (NEG) Urine Ketones NEG (NEG) Urine Occult Blood 2+ (NEG) Urine Nitrite NEG (NEG) Urine Bilirubin NEG (NEG) Urine Urobilinogen NEG (NEG) Urine Leukocyte Esterase NEG (NEG) Urine WBC (Auto) 0 /hpf (0-5) Urine RBC (Auto) 0-4 /hpf (0-4) Urine Hyaline Casts (Auto) 0 /lpf (0-5) Urine Epithelial Cells (Auto) 5-10 /lpf (0-5) Urine Bacteria (Auto) NEG (NEG) Urine Opiates Screen POS (NEG) Urine Methadone, Qualitative NEG (NEG) Urine Barbiturates NEG (NEG) Urine Phencyclidine (PCP) Level NEG (NEG) Ur Amphetamine/Methamphetamine NEG (NEG) MDMA (Ecstasy) Screen NEG (NEG) Urine Benzodiazepines Screen NEG (NEG) Urine Cocaine Metabolite NEG (NEG) Urine Marijuana (THC) NEG (NEG) Arterial Blood pH 7.48 (7.35-7.45) Arterial Blood Partial Pressure CO2 38 mmHg (35-46) Arterial Blood Partial Pressure O2 69 mm/Hg (80-95) Arterial Blood HCO3 27 mmol/L (19-24) Arterial Blood Oxygen Saturation 91.3 % (90-95) Arterial Blood Base Excess 3.6 mEq/L (-9-1.8) Arterial Blood Gas Delivery ROOM AIR Herrera Test POS (POS) Medications Administered Medications (Trade) Dose Ordered Sig/Kaye Route Start Time Stop Time Status Last Admin Dose Admin Methylprednisolone Sodium Succinate (Solu-Medrol IV) 125 mg NOW STAT IV 07/15/16 17:05 07/15/16 17:07 DC 07/15/16 17:38 125 MG Albuterol/ Ipratropium (Duoneb) 12 ml NOW ONCE INH 07/15/16 17:15 07/15/16 17:16 DC 07/15/16 17:15 12 ML Acetaminophen/ Hydrocodone Bitart ([place] 5/325 Tab) 1 tab NOW ONCE PO 07/15/16 17:15 07/15/16 17:16 DC 07/15/16 17:38 1 TAB ED Course Physical exam and history were performed. Nursing notes and EMR were reviewed. Patient appears to have an acute asthma exacerbation. She has been hospitalized multiple times for asthma in the past. IV access was established and labs were obtained. She was given oral Vicodin here in the department as this is what she takes at home for her chronic back pain. Chest x-ray was performed. EKG was normal sinus rhythm without acute ST elevation. The patient was hydrated with normal saline. She was treated here in the ER with 125 mg IV Solu-Medrol and a one-hour DuoNeb. She was placed on the monitoring analyst. The patient's blood work is as was reviewed. She does not have a significantly elevated white blood cell count or gross bandemia. She is mildly anemic, however this appears stable. She has a negative troponin 1. Chest x-ray was without acute findings. The patient remained in normal sinus rhythm on the monitoring analyst. Upon returning from x-ray, the patient continued to complain of difficulty breathing. She requested IV morphine multiple times from nursing. The patient EMR shows that she gets ongoing morphine through her IV while she is admitted to the facility. I do not feel this is an appropriate intervention concerning that she is here for a respiratory complaint. I discussed the case with my attending physician, Dr. Fernandez, who also independently evaluated the patient. The patient symptoms and evaluation are not with significant findings. She does not appear to be desaturating on room air, and her VBG is without significant findings. She continues to request narcotics. The workup and evaluation was discussed at length with the patient. She indicated that she was unwilling to go home, and stated that if she was discharged she would simply be returning here in 3 hours to be seen by another provider. The patient became very insistent that I discuss her case with the hospitalist because "they know me, and will admit me". I did discuss the case with Dr. Salas, electronics tech [facility] hospitalist, who agreed to evaluate the patient here in the department. Please see his dictation for further patient course, plan, and disposition. The chart was completed utilizing [employer] Speech Voice Recognition Software. Grammatical errors, random word insertions, pronoun errors, and incomplete sentences are an occasional consequence of this system due to software limitations, ambient noise, and hardware issues. Any formal questions or concerns about the content, text, or information contained within the body of this dictation should be directly addressed to the provider for clarification. . Medical Decision Differential diagnosis includes, but is not limited to: Myocardial infarction, dysrhythmia, pericarditis, pneumothorax, aortic aneurysm/dissection, DVT/PE, anxiety, GERD, PUD, electrolyte imbalance, thyroid disorder, pneumonia, bronchitis, pancreatitis, and others Impression Primary Impression: Asthma with exacerbation Departure Information Referrals Petra Kelly (PCP) Patient Instructions My [facility]
[2016-07-15] MEDS ORDERED: LIDODERM (LIDOCAINE) PATCH 5% TD ONE (21:49)
[2016-07-15] MEDS ORDERED: POLYETHYLENE (MIRALAX) 17 GM PACK PO PRN (22:00)
[2016-07-15] MEDS ORDERED: PROMETHAZINE HCL INJ 12.5 MG in SODIUM CHLORIDE 0.9% 50ML 50 ML IV PRN (22:00)
[2016-07-15] MEDS ORDERED: OPTIRAY 320 IV PRN (22:00)
[2016-07-15] MEDS ORDERED: NITROGLYCERIN 0.4 MG SL PER TAB CHARGE SL PRN (22:00)
[2016-07-15] MEDS ORDERED: ACETAMINOPHEN 325 MG TAB PO PRN (22:00)
[2016-07-15] MEDS ORDERED: LEVALBUTEROL/IPRATROPIUM NEB INH PRN (22:00)
[2016-07-15] MEDS ORDERED: LACTATED RINGER'S 1000ML 1,000 ML IV ONE (22:00)
[2016-07-15] MEDS ORDERED: ONDANSETRON INJ 2 MG/ML 2 ML VIAL IV PRN (22:00)
[2016-07-15] MEDS: ENOXAPARIN 40 MG/0.4 ML SYR SC SCH (22:00)
[2016-07-15] MEDS ORDERED: LORAZEPAM 1 MG TAB PO PRN (22:00)
--- NOTE | 2016-07-15 22:11 | DIAGNOSTIC IMAGING REPORT ---
CT ANGIOGRAM OF THE CHEST CLINICAL HISTORY: Dyspnea. COMPARISON STUDY: Chest CT scans dated 06/19/2016 and 04/30/2015. Chest x-ray dated 07/15/2016. TECHNIQUE: Following the IV administration of 74 cc of Optiray 320, CT angiogram of the chest was performed from the upper abdomen to the thoracic inlet utilizing the pulmonary embolus protocol. Images are reviewed in the axial, sagittal, and coronal planes. 3-D MIPS images are created and assessed. IV contrast was administered without complication. The examination is degraded by streak artifact from the right arm which could not be elevated above the chest. CT DOSE: 719.87 mGy.cm FINDINGS: Thyroid: Imaged portions of the thyroid gland are normal in size and attenuation. Thoracic aorta: There is atherosclerotic calcification of the thoracic aorta, which is normal in caliber and demonstrates standard 3-vessel arch anatomy. No dissection is seen. A left subclavian central venous infusion port is in place. Pulmonary vasculature: The pulmonary trunk is normal in caliber. There are no filling defects identified in main, lobar, or proximal segmental pulmonary branches to suggest pulmonary embolus. Evaluation of the peripheral vessels is degraded by streak and motion artifact. Heart: The heart is normal in size and configuration, and without pericardial effusion. Lungs and pleural spaces: Evaluation of the lung parenchyma is degraded by respiratory motion artifact. Scarring versus atelectasis is present at both lung bases. No airspace consolidation or pleural effusion is seen. There is elevation of the right hemidiaphragm. Mediastinum: There is no mediastinal lymphadenopathy. Brittany: Clear. Axillae: There is no axillary lymphadenopathy. Upper abdomen: There is a small hiatal hernia. Cholecystectomy clips are noted. Partially visualized upper abdominal viscera is otherwise within normal limits. Skeletal structures: The skeletal structures are osteopenic. A mild superior endplate compression deformity is again seen involving T11. A hemangioma is noted in the body of T10. No lytic or blastic bony lesions are seen. IMPRESSION: 1. There is no evidence of pulmonary embolus in the main, lobar, or proximal segmental pulmonary arteries. There is been no significant change from study performed one month previously. 2. There is no airspace consolidation or pleural effusion. 3. Additional findings as above. Electronically signed by: Nathanael Rutherford M.D. 07/15/2016 10:09 PM Dictated Date/Time: 07/15/2016 10:03 PM
[2016-07-15] MEDS ORDERED: MAGNESIUM SULFATE 1GM / D5W 1 GM in PREMIXED IN D5W 100 ML IV SCH (22:30)
[2016-07-15] MEDS ORDERED: IPRATROPIUM BROMIDE NEB SOLN 0.02% 2.5 ML VIAL INH PRN (22:45)
[2016-07-15] MEDS ORDERED: LEVALBUTEROL 1.25MG/0.5ML NEB INH PRN (22:45)
[2016-07-15 23:11] VITALS: BP 131/80; PULSE 102; TEMP 37; O2SAT 94; Ht 165.1 cm; Wt 94.8 kg
[2016-07-15 23:44] VITALS: BP 136/59; PULSE 99; TEMP 36.5; O2SAT 95
[2016-07-15 23:59] VITALS: O2SAT 95
[2016-07-16] VITALS (13 sets, daily range): BP systolic 109–145; BP diastolic 43–84; PULSE 61–90; TEMP 36.7–36.8; O2SAT 93–98
[2016-07-16] MEDS ORDERED: TRAMADOL HCL 50 MG TAB PO ONE (00:32)
[2016-07-16] MEDS: IPRATROPIUM BROMIDE NEB SOLN 0.02% 2.5 ML VIAL INH SCH ×4 (01:31→19:13)
[2016-07-16] MEDS: LEVALBUTEROL 1.25MG/0.5ML NEB INH SCH ×4 (01:31→19:14)
[2016-07-16] MEDS: METHYLPREDNISOLONE IV 40 MG in SYRINGE 0 ML IV SCH ×3 (02:26→17:05)
[2016-07-16] MEDS ORDERED: LEVALBUTEROL/IPRATROPIUM NEB INH SCH (03:00)
--- NOTE | 2016-07-16 04:11 | HISTORY & PHYSICAL EXAMINATION ---
DATE OF ADMISSION: 07/15/2016 IM ATTENDING : Patient seen and examined. Preceding documentation by CRISTOPHER Dumont, reviewed. In addition : ABG pH 7.48, pCO2 38, pO2 of 69 [address] chest : no PE FINAL ASSESSMENT AND PLAN as follows : 1. Acute hypoxemic failure secondary to asthma exacerbation steroid dependent dse hx AAT deficiency past tobacco abuse 2. XIAO sleep apnea on CPAP 3. prediabetes as per records, HgA1c of 6 last April 2016 4. chronic back pain secondary to thoracic compression fractures 5. hx postop PE sp coumadin 6. chronic anemia, hemoglobin at baseline 7. episodic choking on food poss esophageal dysfunction PCU supplemental O2 Solu-Medrol;, nebs RTC, p.r.n. Pulmonary consult. RE asthma exacerbation (Patient known to Dr. Chua) judicious narcotic use. ISS BG goal 140-180 swallow eval DVT prophylaxis, Lovenox subQ. Full code. MTDD
[2016-07-16] MEDS: HYDROCODONE/ACETAMOPHEN 5/325MG TAB PO PRN ×5 (05:31→22:26)
[2016-07-16 06:20] LABS: BASO % 0.1 %; BASO ABS # 0.01 K/uL (0-0.2); COMPLETE YES; HEMATOCRIT 31.3 % (37-47); IG% 0.4 %; LYMPH ABS # 0.53 K/uL (1.2-3.4); MEAN CELL VOLUME 78.8 fL (80-100); MEAN CORPUSCULAR HEMOGLOBIN 23.2 pg (25-34); MEAN CORPUSCULAR HGB CONC 29.4 g/dl (32-36); MONO % 1.7 %; NEUT % 90.8 %; PLATELET COUNT 234 K/uL (130-400); RED BLOOD COUNT 3.97 M/uL (4.2-5.4); WHITE BLOOD COUNT 7.52 K/uL (4.8-10.8)
[2016-07-16 06:49] LABS: BLOOD UREA NITROGEN 8 mg/dl (7-18); BUN/CREATININE RATIO 10.8 (10-20); CALCIUM 8.6 mg/dl (8.5-10.1); CARBON DIOXIDE 25 mmol/L (21-32); CHLORIDE 107 mmol/L (98-107); CREATININE 0.77 mg/dl (0.60-1.20); GLUCOSE 183 mg/dl (70-99); MAGNESIUM 2.2 mg/dl (1.8-2.4); POTASSIUM 4.6 mmol/L (3.5-5.1); SODIUM 142 mmol/L (136-145)
[2016-07-16] MEDS ORDERED: INSULIN GLARGINE SOLOSTAR 100 UNITS/ML 3 ML PEN SC ONE (06:50)
[2016-07-16] MEDS ORDERED: GLUCAGON FOR INJ 1 MG VIAL SQ PRN (07:00)
[2016-07-16] MEDS ORDERED: GLUCOSE 10 TABS/TUBE PO PRN (07:00)
[2016-07-16] MEDS ORDERED: GLUCOSE 40% GEL 15 GM TUBE PO PRN (07:00)
[2016-07-16] MEDS ORDERED: DEXTROSE 50% 50 ML SYR IV PRN (07:00)
[2016-07-16] MEDS: PANTOprazole SOD 40 MG TAB PO SCH ×2 (08:33→20:51)
[2016-07-16] MEDS: CITALOPRAM 40 MG TAB PO SCH (08:33)
[2016-07-16] MEDS: INSULIN ASPART 100 UNITS/ML 3 ML PEN SC SCH ×4 (08:37→20:57)
[2016-07-16] MEDS: TRAMADOL HCL 50 MG TAB PO PRN ×2 (08:51→15:56)
[2016-07-16] MEDS ORDERED: NON-FORMULARY MEDICATION (Zafirlukast 20 MG) PO SCH (09:00)
[2016-07-16] MEDS ORDERED: LIDODERM (LIDOCAINE) PATCH 5% TD SCH (09:00)
--- NOTE | 2016-07-16 11:14 | PULMONARY CONSULTATION ---
DATE OF CONSULTATION: 07/16/2016 TIME: 09:35 a.m. REPORT OF CONSULTATION: The patient was seen in room #206. She is a 55-year-old female who presented to the Emergency Room yesterday with shortness of breath. She has a history of asthma since childhood. She states that she had a lot of problems when she was very young. She was born 3 months prematurely. She then developed the asthma early on. About age 11, it seemed to get better. She then developed some asthma during her first . She then did overall quite well until about 2007, when her symptoms began again. Since then, they have been relatively unrelenting. She was last hospitalized from June 19 through June 22. On July 12, she started to feel somewhat tight. At that point in time, she was still on prednisone 20 mg. She had a family wedding the following day. She felt overall pretty good on that date. She had no major breathing problems. The following day, July 14, she had some increasing shortness of breath when she was exposed to some heavy perfume. Symptoms progressed and then yesterday, she came to the ER. She states she gets no cough or sputum production. She has not coughed up any blood. She has had no chills, fevers or sweats. She is feeling moderately better this morning. She states that she still feels a little bit tight. She gets a sensation that she describes as like having a bra on that was very too small. The patient has a history of prior pulmonary emboli. She believes that occurred postoperatively. Her D-dimer was elevated and she underwent a CAT scan that showed no evidence of acute pulmonary emboli. The patient carries a history of sleep apnea. She currently is on auto CPAP with minimum pressure of 5 and a maximum of 15. 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 The patient has no pets. She has had allergy testing, all of which was negative. 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 She has been on disability for several years. The patient's smoking history is that she has not smoked for about 12 or 13 years. She previously had a [id number] history of smoking. Alcohol use is none. PAST SURGICAL HISTORY: 1. Sinus surgery x3. 2. Right carpal tunnel surgery. 3. Hernia repair on at least 2 occasions. 4. Appendectomy. 5. Partial colectomy with colostomy and then subsequent reversal. 6. Port-A-Cath insertion. 7. Thermoplasty. 8. D\T\C x3. 9. Hysterectomy. 10. Right knee surgery. 11. Bronchoscopy. PAST MEDICAL HISTORY: 1. Anxiety. 2. Depression. 3. Chronic back pain. 4. Hyperlipidemia. 5. Reflux. 6. Adrenal insufficiency. 7. Diverticular disease. 8. Immunoglobulin deficiency. 9. Microhematuria. 10. Osteoporosis. ALLERGIES: LISTED ALLERGIES TO ASPIRIN, IBUPROFEN, LEVOFLOXACIN, IODINE, ZOLPIDEM, GABAPENTIN, AND PREGABALIN. SHE STATES THAT THE IODINE DYE WAS FROM MANY YEARS AGO WHEN SHE HAD ONE HIVES. SHE HAS NOT HAD ANY PROBLEMS WHEN SHE GETS THE BENADRYL. THE IBUPROFEN DID GIVE HER A RASH. THERE IS ALSO A LISTED ALLERGY TO PREGABALIN. PULMONARY MEDICATIONS: At home include Symbicort 160/4.5 two puffs b.i.d., epinephrine p.r.n., DuoNebs q. 4 hours p.r.n., oxygen 2 liters p.r.n., prednisone 20 mg daily, tiotropium daily, and zafirlukast 20 mg b.i.d. PHYSICAL EXAMINATION: GENERAL AND VITAL SIGNS: The patient is a 55-year-old female who was cooperative, alert and oriented. She was in no distress. Temperature is 36.7. HEENT: Eye examination shows evidence of cataract formation. Nares were clear. Mouth exam showed moderate crowding with a Mallampati grade 3 pharynx. Dentures were noted on top and bottom. NECK: Palpation of the neck reveals no lymph nodes or masses. She is somewhat cushingoid in appearance. She recently thought that she could palpate the left side of her face being larger than the right, but I could not find any asymmetry. CHEST: Normal expansion. HEART: Heart rate was 76 per minute. The rhythm is regular. LUNGS: Lung mccain were clear. I did not hear any wheezing. Respiratory rate was 20 breaths per minute. Saturation was 98% on 2 liters. ABDOMEN: Inspection of the abdomen reveals numerous scars from prior surgeries. Bowel sounds were present and were normal. There was no tenderness to palpation, masses, or organomegaly. EXTREMITIES: Showed no cyanosis, clubbing or edema. LABORATORY DATA: White count is 7.52. Hemoglobin is only 9.2. The MCV, MCH and MCHC are all decreased. This could suggest a blood loss anemia. Platelet count is 234,000. PTT was 24.3. D-dimer was 1310. Urinalysis showed 2+ occult blood, but only 0-4 RBCs. Blood gas done last evening showed a pH 7.48 with a pCO2 of 38 and a pO2 of 69 on room air. Electrolytes show sodium 142, potassium 4.6, chloride 107, and bicarbonate 25. BUN is 8 with a creatinine of 0.77. Blood sugar was 183. Troponin was negative. BNP was 108. Initial magnesium was 1.7 and repeat was 2.2. Flu test was negative. Review of hemoglobin from 04/10/2016 shows that it was 10.4. Chest x-ray showed no acute cardiopulmonary abnormality. CT of the chest showed no evidence of pulmonary embolism. There was no airspace consolidation or effusion. Osteopenia was noted. There was mild scarring versus atelectasis at both lung bases. The right hemidiaphragm was elevated somewhat. IMPRESSIONS: 1. Asthma with exacerbation -- improved. 2. Obstructive sleep apnea. 3. Anemia. COMMENTS AND RECOMMENDATIONS: The patient seemingly is much better this morning. She was relatively clear on exam. She is taking pantoprazole for reflux. She is on every 6 hours levalbuterol and ipratropium. She is on methylprednisolone 40 mg IV q. 8 hours. I do not think any of those need to be changed. She continues to improve rapidly. It would seem like she will have a relatively short stay. Presumably, she could be switched back to prednisone tomorrow if she is doing well. Following discharge, she will follow up with either Semaj Birch or Dr. Chua in the [place] office. I do not know if any workup has been done regarding the hypochromic-microcytic anemia. I am not entirely certain as to the chronicity of this either.
--- NOTE | 2016-07-16 12:51 | Progress Note ---
Internal Med Progress Note Date of Service: Jul 16, 2016. Provider Documentation: SUBJECTIVE: Patient is sitting in her bed in no apparent distress. Still feels SOB but is better than last night. Dry cough and remans afebrile. Feels weak. OBJECTIVE: Vital Signs-as noted below Examination: General Appearance: Alert/Awake and is in no apparent distress Head: normocephalic Eyes: normal inspection ENT: Ears, Nose & Throat are normal looking. Neck: supple, midline trachea, No JVD Respiratory/Chest: lungs clear, normal breath sounds, no respiratory distress Cardiovascular: regular rate, rhythm, no edema, normal peripheral pulses Abdomen/GI: normal bowel sounds, non tender, soft Extremities/Musculoskeletal: normal inspection, no calf tenderness Neurologic/Psych: no motor/sensory deficits, alert, normal mood/affect, oriented x 3 Skin: normal color, warm/dry Lab data as noted below. ASSESSMENT & PLAN: Asthma/COPD Exacerbation: Clinically improving. Presented with increasing shortness of breath for 4 days - has had several admissions in the past for similar symptoms, most recently 06/19-06/22 -Continue IV steroids and around the clock nebs -Continue Symbicort and Zafirlukast -hx of AAT deficiency, received IVIG monthly -Pulmonary consult requested. Steroid Induced Diabetes: Holding oral agents. - Utilize SSI while hospitalized Chronic Low Back Pain: Continue home dose of Narcotic pain medications. -Warm compresses to low back. DVT Prophylaxis: SQ Lovenox Disposition: Discharge once is clinically stable. Vital Signs: Date Time Temp Pulse Resp B/P Pulse Ox O2 Delivery O2 Flow Rate FiO2 07/16/16 12:00 97 Room Air 2.0 CPAP 07/16/16 11:21 36.7 73 16 137/59 96 2.0 07/16/16 08:01 36.7 76 98 131/78 98 2.0 07/16/16 08:00 96 Room Air 2.0 CPAP 07/16/16 07:07 72 20 96 BiPAP/CPAP 2.0 07/16/16 04:00 95 Room Air 2.0 CPAP 07/16/16 03:25 36.7 77 20 109/43 94 CPAP 2.0 07/16/16 01:34 90 18 96 BiPAP/CPAP 2.0 07/16/16 01:31 90 96 2.0 07/16/16 00:06 2.0 07/15/16 23:59 95 Room Air 2.0 CPAP 07/15/16 23:44 36.5 99 17 136/59 95 Room Air 07/15/16 23:11 37.0 102 18 131/80 94 CPAP 2.0 07/15/16 21:31 96 07/15/16 21:30 93 14 141/90 94 Nasal Cannula 1.0 07/15/16 19:36 104 20 123/82 90 Room Air 07/15/16 17:47 75 18 95 Room Air 07/15/16 17:44 69 25 136/83 93 Room Air 07/15/16 17:43 92 Room Air 07/15/16 17:36 68 07/15/16 17:25 92 Room Air 07/15/16 16:40 36.8 77 22 162/87 97 Room Air Lab Results: Results Past 24 Hours Test 07/15/16 17:25 07/15/16 17:30 07/15/16 17:41 07/15/16 18:28 Range/Units Influenza Type A Antigen Neg for Influ A NEG Influenza Type B Antigen Neg for Influ B NEG White Blood Count 8.47 4.8-10.8 K/uL Red Blood Count 4.09 4.2-5.4 M/uL Hemoglobin 9.5 12.0-16.0 g/dL Hematocrit 32.1 37-47 % Mean Corpuscular Volume 78.5 80-100 fL Mean Corpuscular Hemoglobin 23.2 25-34 pg Mean Corpuscular Hemoglobin Concent 29.6 32-36 g/dl Platelet Count 210 130-400 K/uL Mean Platelet Volume 11.2 7.4-10.4 fL Neutrophils (%) (Auto) 61.6 % Lymphocytes (%) (Auto) 24.3 % Monocytes (%) (Auto) 9.2 % Eosinophils (%) (Auto) 4.1 % Basophils (%) (Auto) 0.6 % Neutrophils # (Auto) 5.21 1.4-6.5 K/uL Lymphocytes # (Auto) 2.06 1.2-3.4 K/uL Monocytes # (Auto) 0.78 0.11-0.59 K/uL Eosinophils # (Auto) 0.35 0-0.5 K/uL Basophils # (Auto) 0.05 0-0.2 K/uL RDW Standard Deviation 50.0 36.4-46.3 fL RDW Coefficient of Variation 17.4 11.5-14.5 % Immature Granulocyte % (Auto) 0.2 % Immature Granulocyte # (Auto) 0.02 0.00-0.02 K/uL Activated Partial Thromboplast Time 24.3 21.0-31.0 SECONDS Partial Thromboplastin Ratio 0.9 D-Dimer 1310 0-500 ug/L FEU Sodium Level 143 136-145 mmol/L Potassium Level 3.6 3.5-5.1 mmol/L Chloride Level 106 98-107 mmol/L Carbon Dioxide Level 29 21-32 mmol/L Anion Gap 8.0 3-11 mmol/L Blood Urea Nitrogen 11 7-18 mg/dl Creatinine 0.66 0.60-1.20 mg/dl Est Creatinine Clear Calc Drug Dose 108.7 ml/min Estimated GFR () 114.5 Estimated GFR (Non- 98.8 BUN/Creatinine Ratio 16.7 10-20 Random Glucose 90 70-99 mg/dl Calcium Level 8.5 8.5-10.1 mg/dl Magnesium Level 1.7 1.8-2.4 mg/dl Total Bilirubin 0.4 0.2-1 mg/dl Aspartate Amino Transf (AST/SGOT) 12 15-37 U/L Alanine Aminotransferase (ALT/SGPT) 27 12-78 U/L Alkaline Phosphatase 52 45-117 U/L Pro-B-Type Natriuretic Peptide 108 0-900 pg/ml Total Protein 6.1 6.4-8.2 gm/dl Albumin 3.1 3.4-5.0 gm/dl Globulin 3.0 2.5-4.0 gm/dl Albumin/Globulin Ratio 1.0 0.9-2 Lipase 132 73-393 U/L Bedside Troponin I 0.000 0-0.045 ng/ml Venous Blood pH 7.43 7.36-7.41 Venous Blood Partial Pressure CO2 47 38.0-50.0 mmHg Venous Blood Partial Pressure O2 45 mmHg Venous Blood HCO3 30 mmol/L Venous Blood Oxygen Saturation 77.5 % Venous Blood Base Excess 5.1 mmol/L Test 07/15/16 19:23 07/15/16 21:04 07/16/16 05:56 07/16/16 10:58 Range/Units Urine Color YELLOW Urine Appearance CLEAR CLEAR Urine pH 5.5 4.5-7.5 Urine Specific [place] 1.008 1.000-1.030 Urine Protein NEG NEG Urine Glucose (UA) NEG NEG Urine Ketones NEG NEG Urine Occult Blood 2+ NEG Urine Nitrite NEG NEG Urine Bilirubin NEG NEG Urine Urobilinogen NEG NEG Urine Leukocyte Esterase NEG NEG Urine WBC (Auto) 0 0-5 /hpf Urine RBC (Auto) 0-4 0-4 /hpf Urine Hyaline Casts (Auto) 0 0-5 /lpf Urine Epithelial Cells (Auto) 5-10 0-5 /lpf Urine Bacteria (Auto) NEG NEG Urine Opiates Screen POS NEG Urine Methadone, Qualitative NEG NEG Urine Barbiturates NEG NEG Urine Phencyclidine (PCP) Level NEG NEG Ur Amphetamine/Methamphetamine NEG NEG MDMA (Ecstasy) Screen NEG NEG Urine Benzodiazepines Screen NEG NEG Urine Cocaine Metabolite NEG NEG Urine Marijuana (THC) NEG NEG Arterial Blood pH 7.48 7.35-7.45 Arterial Blood Partial Pressure CO2 38 35-46 mmHg Arterial Blood Partial Pressure O2 69 80-95 mm/Hg Arterial Blood HCO3 27 19-24 mmol/L Arterial Blood Oxygen Saturation 91.3 90-95 % Arterial Blood Base Excess 3.6 -9-1.8 mEq/L Arterial Blood Gas Delivery ROOM AIR Herrera Test POS POS White Blood Count 7.52 4.8-10.8 K/uL Red Blood Count 3.97 4.2-5.4 M/uL Hemoglobin 9.2 12.0-16.0 g/dL Hematocrit 31.3 37-47 % Mean Corpuscular Volume 78.8 80-100 fL Mean Corpuscular Hemoglobin 23.2 25-34 pg Mean Corpuscular Hemoglobin Concent 29.4 32-36 g/dl Platelet Count 234 130-400 K/uL Mean Platelet Volume 11.0 7.4-10.4 fL Neutrophils (%) (Auto) 90.8 % Lymphocytes (%) (Auto) 7.0 % Monocytes (%) (Auto) 1.7 % Eosinophils (%) (Auto) 0.0 % Basophils (%) (Auto) 0.1 % Neutrophils # (Auto) 6.82 1.4-6.5 K/uL Lymphocytes # (Auto) 0.53 1.2-3.4 K/uL Monocytes # (Auto) 0.13 0.11-0.59 K/uL Eosinophils # (Auto) 0.00 0-0.5 K/uL Basophils # (Auto) 0.01 0-0.2 K/uL RDW Standard Deviation 50.1 36.4-46.3 fL RDW Coefficient of Variation 17.4 11.5-14.5 % Immature Granulocyte % (Auto) 0.4 % Immature Granulocyte # (Auto) 0.03 0.00-0.02 K/uL Sodium Level 142 136-145 mmol/L Potassium Level 4.6 3.5-5.1 mmol/L Chloride Level 107 98-107 mmol/L Carbon Dioxide Level 25 21-32 mmol/L Anion Gap 10.0 3-11 mmol/L Blood Urea Nitrogen 8 7-18 mg/dl Creatinine 0.77 0.60-1.20 mg/dl Est Creatinine Clear Calc Drug Dose 92.9 ml/min Estimated GFR () 100.0 Estimated GFR (Non- 86.3 BUN/Creatinine Ratio 10.8 10-20 Random Glucose 183 70-99 mg/dl Calcium Level 8.6 8.5-10.1 mg/dl Magnesium Level 2.2 1.8-2.4 mg/dl Troponin I < 0.015 0-0.045 ng/ml Bedside Glucose 133 70-90 mg/dl
[2016-07-16] MEDS ORDERED: NURSING VERBAL MED ORDER ONE (17:15)
[2016-07-16] MEDS: BUDESONIDE/FORMOTEROL FUMARATE 160/4.5 60 PUFFS/INHALER INH SCH (20:49)
[2016-07-16] MEDS: DOCUSATE SODIUM 100 MG CAP PO SCH (20:50)
[2016-07-16] MEDS: CHOLECALCIFEROL 1000 INTER.UNIT TAB PO SCH (20:50)
[2016-07-16] MEDS: LIDODERM (LIDOCAINE) PATCH 5% TD SCH (20:52)
[2016-07-16] MEDS: ENOXAPARIN 40 MG/0.4 ML SYR SC SCH (20:53)
[2016-07-16] MEDS: LORAZEPAM 2 MG TAB PO PRN (21:00)
[2016-07-17] VITALS (9 sets, daily range): BP systolic 108–115; BP diastolic 66–77; PULSE 58–79; TEMP 36.4–36.8; O2SAT 91–95
[2016-07-17] MEDS: METHYLPREDNISOLONE IV 40 MG in SYRINGE 0 ML IV SCH ×3 (02:12→21:18)
[2016-07-17] MEDS: LEVALBUTEROL 1.25MG/0.5ML NEB INH SCH ×4 (02:15→19:30)
[2016-07-17] MEDS: IPRATROPIUM BROMIDE NEB SOLN 0.02% 2.5 ML VIAL INH SCH ×3 (02:15→14:17)
[2016-07-17 05:30] LABS: BASO % 0.1 %; BASO ABS # 0.01 K/uL (0-0.2); COMPLETE YES; HEMATOCRIT 30.7 % (37-47); IG% 0.4 %; LYMPH % 5.1 %; LYMPH ABS # 0.68 K/uL (1.2-3.4); MEAN CELL VOLUME 79.5 fL (80-100); MEAN CORPUSCULAR HEMOGLOBIN 23.3 pg (25-34); MEAN CORPUSCULAR HGB CONC 29.3 g/dl (32-36); MEAN PLATELET VOLUME 11.2 fL (7.4-10.4); NEUT % 88.4 %; PLATELET COUNT 242 K/uL (130-400); RED BLOOD COUNT 3.86 M/uL (4.2-5.4); WHITE BLOOD COUNT 13.42 K/uL (4.8-10.8)
[2016-07-17 06:07] LABS: BUN/CREATININE RATIO 19.5 (10-20); CALCIUM 8.6 mg/dl (8.5-10.1); CREATININE 0.79 mg/dl (0.60-1.20); POTASSIUM 4.6 mmol/L (3.5-5.1)
[2016-07-17] MEDS: TRAMADOL HCL 50 MG TAB PO PRN ×2 (06:08→21:27)
[2016-07-17] MEDS: INSULIN ASPART 100 UNITS/ML 3 ML PEN SC SCH ×4 (07:43→21:00)
[2016-07-17] MEDS: CHOLECALCIFEROL 1000 INTER.UNIT TAB PO SCH ×2 (07:54→21:21)
[2016-07-17] MEDS: FUROSEMIDE 40 MG TAB PO SCH (07:54)
[2016-07-17] MEDS: CYANOCOBALAMIN 500 MCG TAB (VIT B-12) PO SCH (07:54)
[2016-07-17] MEDS: BUDESONIDE/FORMOTEROL FUMARATE 160/4.5 60 PUFFS/INHALER INH SCH ×2 (07:55→21:19)
[2016-07-17] MEDS: PANTOprazole SOD 40 MG TAB PO SCH ×2 (07:55→21:20)
[2016-07-17] MEDS: CITALOPRAM 40 MG TAB PO SCH (07:55)
[2016-07-17] MEDS: TIOTROPIUM BROMIDE 5 PUFF/90 MCG INH INH SCH (07:55)
[2016-07-17] MEDS: HYDROCODONE/ACETAMOPHEN 5/325MG TAB PO PRN ×3 (07:56→19:04)
[2016-07-17] MEDS: INSULIN GLARGINE SOLOSTAR 100 UNITS/ML 3 ML PEN SC SCH (08:00)
--- NOTE | 2016-07-17 10:38 | Pulmonology Progress Note ---
Pulmonary Progress Note Date of Service Jul 17, 2016. Attending Dr. Tarango Subjective Feels somewhat improved today however continues to described bilateral chest tightness. Has been ambulating the hallways - RA and reports O2 drop to 86% with HR 122bmp -recovers with rest. No associated chest pain or wheeze. Sleeping well on CPAP without nocturnal arousals. No fevers or chills. Denies GI symptoms. Reports "raspy" voice today. C/O back pain - improved on prior admission with TENS unit. Objective 55-yo female admitted to [facility] 07/15/16 with exacerbation of asthma. Prior records were reviewed. PMHx includes: severe persistent asthma with frequent hospital admissions and BT x 3 - [id number], on PRN O2- 2LPM, chronic prednisone: 20mg, h/o provoked pulmonary embolism, h/o acquired immunoglobulin deficiency. H/o frequent prednisone use with adrenal insufficiency, h/o T11 compression fracture, diverticulosis, former tobacco (5-pack year, quit 2014), sleep apnea (on Auto CPAP 5-15cm H20). Bronchoscopy 04/2016 notable for bilateral EDAC 70+%. Recent admission: 06/19-03/2017. Patient admitted through [facility] ER 07/15/16 with 4-days h/o chest tightness and dyspnea. ABG 07/15/16: 7.48/38/69-. D-dimer: 1310. Influenza: negative. No leukocytois. Mild chronic anemia. CTA: no embolism, elevated right hemidiaphragm , no acute changes. Today: - O2 93-95%: 2LPM - Slept on CPAP - WBC: 13.42 (inc in setting of steroid) - Hbg/Hct/Plts: 02/08.7/242 Physical Exam: Constitutional: WDWN obese female lying in hospital bed. NAD Head: + facial symmetry, Moist mucous membranes, no lesions. PERRLA, no injection Respiratory: Non-labored respirations. Good air movement at bases. + vocal hoarseness. Upper airway wheeze pronounced on the right with respiratory effort. No rales or rhonchi CV: RRR, no MRG. Warm and perfused peripherally MSK/Ext: Moving and developed symmetrically. No peripheral edema or tenderness. Neurologic: A&O. Good data recall. Appropriate affect. Assessment & Plan 55-yo female admitted 07/15 with exacerbation of severe persistent asthma. She is imroving clinically. 1 1. Severe persistent asthma: Improving - Continue Symbicort 160/4.5 2 puffs BID, Spiriva 1 puff daily - Scheduled and PRN levalbuterol-ipratropium as prescribed - Alpha 1-serum level - Reflux control (as below) - Wean IV steroid to [id number] tomorrow 2. GERD provocative of respiratory symptoms - HOB: 30-40 degrees at all times - Continue BID PPI 3. Back pain: TENS unit 4. Sleep apnea: Continue CPAP as prescribed Data Medications: Current Inpatient Medications Medications (Trade) Dose Ordered Sig/Kaye Route Start Time Stop Time Status Last Admin Dose Admin Ioversol (Optiray 320) 100 ml UD PRN IV 07/15/16 22:00 07/19/16 21:59 Citalopram Hydrobromide (celeXA TAB) 40 mg QAM PO 07/16/16 09:00 08/15/16 08:59 07/17/16 07:55 40 MG Docusate Sodium (coLACE CAP) 200 mg HS PO 07/16/16 21:00 08/15/16 20:59 07/16/16 20:50 200 MG Acetaminophen/ Hydrocodone Bitart ([place] 5/325 Tab) pain not relieved by tylenol Q4H PRN PO 07/15/16 22:00 07/17/16 07:56 2 TAB Lorazepam (Ativan Tab) 2 mg HS PRN PO 07/15/16 22:00 08/14/16 21:59 07/16/16 21:00 2 MG Lorazepam (Ativan Tab) 1 mg QAM PRN PO 07/15/16 22:00 08/14/16 21:59 Pantoprazole Sodium (Protonix Tab) 40 mg BID PO 07/16/16 09:00 08/15/16 08:59 07/17/16 07:55 40 MG Polyethylene 17 gm 17 gm DAILY PRN PO 07/15/16 22:00 08/14/16 21:59 Methylprednisolone Sodium Succinate/ Syringe (Solu-Medrol IV/ Syringe) 0.64 ml @ 1.5 mls/min Q8@0200,1000,1800 IV 07/16/16 02:00 08/15/16 01:59 07/17/16 02:12 1.5 MLS/MIN Enoxaparin Sodium (Lovenox Inj) 40 mg Q24H SC 07/15/16 22:00 08/14/16 21:59 Acetaminophen (Tylenol Tab) 650 mg Q4H PRN PO 07/15/16 22:00 08/14/16 21:59 Nitroglycerin (Nitrostat Tab) 0.4 mg UD PRN SL 07/15/16 22:00 08/14/16 21:59 Ondansetron HCl 4 mg 4 mg Q6H PRN IV 07/15/16 22:00 08/14/16 21:59 Promethazine HCl/ Sodium Chloride (Phenergan Inj/ Nss 50ml) 50.5 ml @ 204 mls/hr Q6H PRN IV 07/15/16 22:00 08/14/16 21:59 Lidocaine (Lidoderm Patch 5%) 1 patch HS TD 07/16/16 21:00 08/15/16 20:59 07/16/16 20:52 1 PATCH Miscellaneous (Remove Lidoderm Patch) 1 ea QAM N/A 07/16/16 09:00 08/15/16 08:59 07/17/16 07:53 1 EA Levalbuterol (Xopenex 1.25MG/ 0.5ML Neb) 1.25 mg Q6R INH 07/16/16 03:00 08/15/16 02:59 07/17/16 07:17 1.25 MG Ipratropium [place] (Atrovent 0.02% 0.5MG/2.5ML Neb) 0.5 mg Q6R INH 07/16/16 03:00 08/15/16 02:59 07/17/16 07:17 0.5 MG Levalbuterol (Xopenex 1.25MG/ 0.5ML Neb) 1.25 mg Q4H PRN INH 07/15/16 22:45 08/14/16 22:44 Ipratropium [place] (Atrovent 0.02% 0.5MG/2.5ML Neb) 0.5 mg Q4H PRN INH 07/15/16 22:45 08/14/16 22:44 Miscellaneous Information (Order Awaiting Action) 1 ea QS N/A 07/16/16 00:00 08/15/16 00:00 Tramadol HCl (Ultram Tab) `1/2 TO 1 tab for pain ... Q6H PRN PO 07/16/16 00:45 07/17/16 06:08 50 MG Insulin Aspart (novoLOG ASPART) SLIDING SCALE If C... ACHS SC 07/16/16 07:00 08/15/16 06:59 07/16/16 20:57 2 UNITS Glucose (Glucose 40% Gel) 15-30 GRAMS 15 GRAMS... UD PRN PO 07/16/16 07:00 08/15/16 06:59 Glucose (Glucose Chew Tab) 4-8 Tablets 4 Tabl... UD PRN PO 07/16/16 07:00 08/15/16 06:59 Dextrose (Dextrose 50% 50ML Syringe) 25-50ML OF 50% DW IV FOR... UD PRN IV 07/16/16 07:00 08/15/16 06:59 Glucagon (Glucagon Inj) 1 mg UD PRN SQ 07/16/16 07:00 08/15/16 06:59 Insulin Glargine (Lantus Solostar Pen) 5 unit DAILY SC 07/17/16 09:00 08/16/16 08:59 07/17/16 08:00 5 UNIT Budesonide/ Formoterol Fumarate (Symbicort 160/ 4.5 Inh) 2 puffs BID INH 07/16/16 21:00 08/15/16 20:59 07/17/16 07:55 2 PUFFS Cholecalciferol (Vitamin D Tab) 1,000 inter.unit BID PO 07/16/16 21:00 08/15/16 20:59 07/17/16 07:54 1,000 INTER.UNIT Cyanocobalamin (Vitamin B-12 Tab) 1,000 mcg QAM PO 07/17/16 09:00 08/16/16 08:59 07/17/16 07:54 1,000 MCG Furosemide (Lasix Tab) 40 mg QAM PO 07/17/16 09:00 08/16/16 08:59 07/17/16 07:54 40 MG Tiotropium [place] (Spiriva Handihaler Inhaler) 1 puff QAM INH 07/17/16 09:00 08/16/16 08:59 07/17/16 07:55 1 PUFF Heparin Sodium (Porcine) (Heparin 100 Unit/ml 5ml Flush) 5 ml PRN PRN IV 07/16/16 17:30 08/15/16 17:29 07/17/16 05:45 5 ML I & O: 24-Hour Column 07/17/16 07:59 Intake Total 1485 ml Output Total 1400 ml Balance 85 ml Vital Signs: Date Time Temp Pulse Resp B/P Pulse Ox O2 Delivery O2 Flow Rate FiO2 07/17/16 08:00 Room Air 07/17/16 07:18 36.4 63 18 108/77 94 Room Air 07/17/16 07:18 58 16 95 BiPAP/CPAP 2.0 07/17/16 02:16 65 95 2.0 07/17/16 02:16 65 16 95 BiPAP/CPAP 2.0 07/17/16 00:28 36.8 75 16 111/66 93 BiPAP 2.0 07/17/16 00:00 CPAP 07/16/16 19:23 74 16 94 Room Air 07/16/16 19:23 2.0 07/16/16 16:00 Room Air 07/16/16 15:36 36.7 61 14 122/73 93 Room Air 07/16/16 14:20 61 16 98 Nasal Cannula 2.0 07/16/16 14:10 36.8 84 18 145/84 96 Room Air 07/16/16 12:00 97 Room Air 2.0 CPAP 07/16/16 11:21 36.7 73 16 137/59 96 2.0 Laboratory Results: Last 24 Hours Test 07/16/16 10:58 07/16/16 16:26 07/16/16 20:19 07/17/16 05:10 Bedside Glucose 133 mg/dl 151 mg/dl 206 mg/dl White Blood Count 13.42 K/uL Red Blood Count 3.86 M/uL Hemoglobin 9.0 g/dL Hematocrit 30.7 % Mean Corpuscular Volume 79.5 fL Mean Corpuscular Hemoglobin 23.3 pg Mean Corpuscular Hemoglobin Concent 29.3 g/dl Platelet Count 242 K/uL Mean Platelet Volume 11.2 fL Neutrophils (%) (Auto) 88.4 % Lymphocytes (%) (Auto) 5.1 % Monocytes (%) (Auto) 6.0 % Eosinophils (%) (Auto) 0.0 % Basophils (%) (Auto) 0.1 % Neutrophils # (Auto) 11.87 K/uL Lymphocytes # (Auto) 0.68 K/uL Monocytes # (Auto) 0.80 K/uL Eosinophils # (Auto) 0.00 K/uL Basophils # (Auto) 0.01 K/uL RDW Standard Deviation 52.1 fL RDW Coefficient of Variation 17.9 % Immature Granulocyte % (Auto) 0.4 % Immature Granulocyte # (Auto) 0.06 K/uL Sodium Level 142 mmol/L Potassium Level 4.6 mmol/L Chloride Level 106 mmol/L Carbon Dioxide Level 29 mmol/L Anion Gap 7.0 mmol/L Blood Urea Nitrogen 15 mg/dl Creatinine 0.79 mg/dl Est Creatinine Clear Calc Drug Dose 90.5 ml/min Estimated GFR () 97.0 Estimated GFR (Non- 83.7 BUN/Creatinine Ratio 19.5 Random Glucose 140 mg/dl Calcium Level 8.6 mg/dl Test 07/17/16 07:37 Bedside Glucose 152 mg/dl
--- NOTE | 2016-07-17 11:42 | DIAGNOSTIC IMAGING REPORT ---
VIDEO SWALLOW HISTORY: Dysphagia. Aspiration. r/o aspiration causing asthma exacerbate.; please ached per order TECHNIQUE: Video fluoroscopic evaluation of swallowing was performed in the AP and lateral projections by the speech pathology staff. The patient is fed nectar-thick and thin liquid barium, a barium coated wafer, and barium pudding. FLUOROSCOPY TIME: 1.8 minutes. COMPARISON STUDY: None. FINDINGS: There is normal hyoid excursion and epiglottic deflection. No significant penetration or aspiration identified. Swallowing function is within normal limits. Moderate esophageal dysmotility IMPRESSION: 1. No aspiration identified. Moderate esophageal dysmotility 2. Please see the speech pathologist report for detailed findings and recommendations. Electronically signed by: Vivek Sanders M.D. 07/17/2016 11:40 AM Dictated Date/Time: 07/17/2016 11:40 AM
--- NOTE | 2016-07-17 16:37 | Progress Note ---
Internal Med Progress Note Date of Service: Jul 17, 2016. Provider Documentation: SUBJECTIVE: Patient is sitting in her bed in no apparent distress. Still feels SOB but is better than upon admission. Dry cough and remans afebrile. Feels weak.Has not been ambulating much. OBJECTIVE: Vital Signs-as noted below Examination: General Appearance: Alert/Awake and is in no apparent distress Head: normocephalic Eyes: normal inspection ENT: Ears, Nose & Throat are normal looking. Neck: supple, midline trachea, No JVD Respiratory/Chest: lungs clear, normal breath sounds, no respiratory distress Cardiovascular: regular rate, rhythm, no edema, normal peripheral pulses Abdomen/GI: normal bowel sounds, non tender, soft Extremities/Musculoskeletal: normal inspection, no calf tenderness Neurologic/Psych: no motor/sensory deficits, alert, normal mood/affect, oriented x 3 Skin: normal color, warm/dry Lab data as noted below. ASSESSMENT & PLAN: Swallowing Study IMPRESSION: 1. No aspiration identified. Moderate esophageal dysmotility 2. Please see the speech pathologist report for detailed findings and recommendations. Asthma/COPD Exacerbation: Clinically improving. Presented with increasing shortness of breath for 4 days - has had several admissions in the past for similar symptoms, most recently 06/19-06/22 -Continue IV steroids which is being tapered and around the clock nebs -Continue Symbicort and Zafirlukast -hx of AAT deficiency, received IVIG monthly -Pulmonary consult reviewed. 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 - Utilize SSI while hospitalized Likely Esophageal Dysmotility: Started Reglan 5 mg AC & HS. -May follow up with GI as outpatient. Chronic Low Back Pain: Continue home dose of Narcotic pain medications.Seems to have narcotic-liking behavior. -Warm compresses to low back. -Am not ordering any parenteral Narcotics for her despite her repeated demands. DVT Prophylaxis: SQ Lovenox Disposition: Discharge home on 07/18/2016. Vital Signs: Date Time Temp Pulse Resp B/P Pulse Ox O2 Delivery O2 Flow Rate FiO2 07/17/16 15:53 36.6 75 18 115/69 91 Room Air 07/17/16 14:17 79 16 95 Room Air 07/17/16 08:00 Room Air 07/17/16 07:18 36.4 63 18 108/77 94 Room Air 07/17/16 07:18 58 16 95 BiPAP/CPAP 2.0 07/17/16 02:16 65 95 2.0 07/17/16 02:16 65 16 95 BiPAP/CPAP 2.0 07/17/16 00:28 36.8 75 16 111/66 93 BiPAP 2.0 07/17/16 00:00 CPAP 07/16/16 19:23 74 16 94 Room Air 07/16/16 19:23 2.0 Lab Results: Results Past 24 Hours Test 07/16/16 20:19 07/17/16 05:10 07/17/16 07:37 07/17/16 11:22 Range/Units Bedside Glucose 206 152 159 70-90 mg/dl White Blood Count 13.42 4.8-10.8 K/uL Red Blood Count 3.86 4.2-5.4 M/uL Hemoglobin 9.0 12.0-16.0 g/dL Hematocrit 30.7 37-47 % Mean Corpuscular Volume 79.5 80-100 fL Mean Corpuscular Hemoglobin 23.3 25-34 pg Mean Corpuscular Hemoglobin Concent 29.3 32-36 g/dl Platelet Count 242 130-400 K/uL Mean Platelet Volume 11.2 7.4-10.4 fL Neutrophils (%) (Auto) 88.4 % Lymphocytes (%) (Auto) 5.1 % Monocytes (%) (Auto) 6.0 % Eosinophils (%) (Auto) 0.0 % Basophils (%) (Auto) 0.1 % Neutrophils # (Auto) 11.87 1.4-6.5 K/uL Lymphocytes # (Auto) 0.68 1.2-3.4 K/uL Monocytes # (Auto) 0.80 0.11-0.59 K/uL Eosinophils # (Auto) 0.00 0-0.5 K/uL Basophils # (Auto) 0.01 0-0.2 K/uL RDW Standard Deviation 52.1 36.4-46.3 fL RDW Coefficient of Variation 17.9 11.5-14.5 % Immature Granulocyte % (Auto) 0.4 % Immature Granulocyte # (Auto) 0.06 0.00-0.02 K/uL Sodium Level 142 136-145 mmol/L Potassium Level 4.6 3.5-5.1 mmol/L Chloride Level 106 98-107 mmol/L Carbon Dioxide Level 29 21-32 mmol/L Anion Gap 7.0 3-11 mmol/L Blood Urea Nitrogen 15 7-18 mg/dl Creatinine 0.79 0.60-1.20 mg/dl Est Creatinine Clear Calc Drug Dose 90.5 ml/min Estimated GFR () 97.0 Estimated GFR (Non- 83.7 BUN/Creatinine Ratio 19.5 10-20 Random Glucose 140 70-99 mg/dl Calcium Level 8.6 8.5-10.1 mg/dl Test 07/17/16 16:24 Range/Units Bedside Glucose 155 70-90 mg/dl
[2016-07-17] MEDS: METOCLOPRAMIDE HCL 5 MG TAB PO SCH ×2 (17:06→21:20)
[2016-07-17] MEDS: ENOXAPARIN 40 MG/0.4 ML SYR SC SCH (21:18)
[2016-07-17] MEDS: DOCUSATE SODIUM 100 MG CAP PO SCH (21:20)
[2016-07-17] MEDS: LIDODERM (LIDOCAINE) PATCH 5% TD SCH (21:22)
[2016-07-17] MEDS: LORAZEPAM 2 MG TAB PO PRN (21:26)
[2016-07-18] VITALS (10 sets, daily range): BP systolic 108–130; BP diastolic 69–73; PULSE 56–77; TEMP 36.6–36.7; O2SAT 91–99
[2016-07-18] MEDS: LEVALBUTEROL 1.25MG/0.5ML NEB INH SCH ×4 (01:58→20:04)
[2016-07-18 06:17] LABS: CREATININE 0.85 mg/dl (0.60-1.20)
[2016-07-18] MEDS: METOCLOPRAMIDE HCL 5 MG TAB PO SCH ×4 (06:46→20:53)
[2016-07-18] MEDS: HYDROCODONE/ACETAMOPHEN 5/325MG TAB PO PRN ×3 (06:47→20:51)
[2016-07-18] MEDS: INSULIN ASPART 100 UNITS/ML 3 ML PEN SC SCH ×4 (07:48→20:52)
[2016-07-18] MEDS: BUDESONIDE/FORMOTEROL FUMARATE 160/4.5 60 PUFFS/INHALER INH SCH ×2 (07:51→20:52)
[2016-07-18] MEDS: CYANOCOBALAMIN 500 MCG TAB (VIT B-12) PO SCH (07:52)
[2016-07-18] MEDS: FUROSEMIDE 40 MG TAB PO SCH (07:52)
[2016-07-18] MEDS: CHOLECALCIFEROL 1000 INTER.UNIT TAB PO SCH ×2 (07:52→20:53)
[2016-07-18] MEDS: PANTOprazole SOD 40 MG TAB PO SCH ×2 (07:52→20:52)
[2016-07-18] MEDS: TIOTROPIUM BROMIDE 5 PUFF/90 MCG INH INH SCH (07:53)
[2016-07-18] MEDS: CITALOPRAM 40 MG TAB PO SCH (07:53)
[2016-07-18] MEDS: INSULIN GLARGINE SOLOSTAR 100 UNITS/ML 3 ML PEN SC SCH (07:59)
--- NOTE | 2016-07-18 11:57 | Pulmonology Progress Note ---
Pulmonary Progress Note Date of Service Jul 18, 2016. Attending Dr. Tarango Subjective Slept well last night. Vocal hoarseness is improved. Dyspnea improving. No cough. Continues to report back pain she states is exacerbated by her respiratory symptoms. TENS is helpful. Objective 55-yo female admitted to [facility] 07/15/16 with exacerbation of asthma. PMHx includes: severe persistent asthma with frequent hospital admissions and BT x 3 - [id number], on PRN O2- 2LPM, chronic prednisone: 20mg, h/o provoked pulmonary embolism, h/o acquired immunoglobulin deficiency. H/o frequent prednisone use with adrenal insufficiency, h/o T11 compression fracture, diverticulosis, former tobacco (5-pack year, quit 2014), sleep apnea (on Auto CPAP 5-15cm H20). Bronchoscopy 04/2016 notable for bilateral EDAC 70+%. Recent admission: 06/19-03/2017. Patient admitted through [facility] ER 07/15/16 with 4-days h/o chest tightness and dyspnea. No leucocytosis.. Mild chronic anemia. CTA: no embolism, elevated right hemidiaphragm, no acute changes. Today: -96% RA - WBC/Hgb/Hct/Plts: 13.42/90/30.7/242 Physical Exam: Constitutional: WDWN obese female lying in hospital bed. NAD Head: + facial symmetry, Moist mucous membranes, no lesions. PERRLA, no injection Respiratory: Non-labored respirations. Good air movement at bases. Scant end- expiratory wheeze on the right - posterior CV: RRR, no MRG. Warm and perfused peripherally MSK/Ext: Moving and developed symmetrically. No peripheral edema or tenderness. Neurologic: A&O. Good data recall. Appropriate affect. Assessment & Plan 55-yo female admitted 07/15 with exacerbation of severe persistent asthma. She is improving clinically. 1. Severe persistent asthma: Improving - Continue Symbicort 160/4.5 2 puffs BID, Spiriva 1 puff daily - Scheduled and PRN levalbuterol-ipratropium as prescribed - Reflux control (as below) - Transition to PO steroid tomorrow and anticipate readiness for discharge 07/19 - Follow-up appointment with Semaj Birch PA-C 07/24/16 at 4:00PM 2. Sleep apnea: Continue CPAP as prescribed Data Medications: Current Inpatient Medications Medications (Trade) Dose Ordered Sig/Kaye Route Start Time Stop Time Status Last Admin Dose Admin Ioversol (Optiray 320) 100 ml UD PRN IV 07/15/16 22:00 07/19/16 21:59 Citalopram Hydrobromide (celeXA TAB) 40 mg QAM PO 07/16/16 09:00 08/15/16 08:59 07/18/16 07:53 40 MG Docusate Sodium (coLACE CAP) 200 mg HS PO 07/16/16 21:00 08/15/16 20:59 07/17/16 21:20 200 MG Lorazepam (Ativan Tab) 2 mg HS PRN PO 07/15/16 22:00 08/14/16 21:59 07/17/16 21:26 2 MG Lorazepam (Ativan Tab) 1 mg QAM PRN PO 07/15/16 22:00 08/14/16 21:59 Pantoprazole Sodium (Protonix Tab) 40 mg BID PO 07/16/16 09:00 08/15/16 08:59 07/18/16 07:52 40 MG Polyethylene (Miralax Powder Packet) 17 gm DAILY PRN PO 07/15/16 22:00 08/14/16 21:59 07/18/16 08:03 17 GM Enoxaparin Sodium (Lovenox Inj) 40 mg Q24H SC 07/15/16 22:00 08/14/16 21:59 Acetaminophen (Tylenol Tab) 650 mg Q4H PRN PO 07/15/16 22:00 08/14/16 21:59 Nitroglycerin (Nitrostat Tab) 0.4 mg UD PRN SL 07/15/16 22:00 08/14/16 21:59 Ondansetron HCl (Zofran Inj) 4 mg Q6H PRN IV 07/15/16 22:00 08/14/16 21:59 Lidocaine (Lidoderm Patch 5%) 1 patch HS TD 07/16/16 21:00 08/15/16 20:59 07/17/16 21:22 1 PATCH Miscellaneous (Remove Lidoderm Patch) 1 ea QAM N/A 07/16/16 09:00 08/15/16 08:59 07/18/16 07:53 1 EA Levalbuterol (Xopenex 1.25MG/ 0.5ML Neb) 1.25 mg Q6R INH 07/16/16 03:00 08/15/16 02:59 07/18/16 07:02 1.25 MG Levalbuterol (Xopenex 1.25MG/ 0.5ML Neb) 1.25 mg Q4H PRN INH 07/15/16 22:45 08/14/16 22:44 Miscellaneous Information (Order Awaiting Action) 1 ea QS N/A 07/16/16 00:00 08/15/16 00:00 Tramadol HCl (Ultram Tab) `1/2 TO 1 tab for pain ... Q6H PRN PO 07/16/16 00:45 07/17/16 21:27 50 MG Insulin Aspart (novoLOG ASPART) SLIDING SCALE If C... ACHS SC 07/16/16 07:00 08/15/16 06:59 07/16/16 20:57 2 UNITS Glucose (Glucose 40% Gel) 15-30 GRAMS 15 GRAMS... UD PRN PO 07/16/16 07:00 08/15/16 06:59 Glucose (Glucose Chew Tab) 4-8 Tablets 4 Tabl... UD PRN PO 07/16/16 07:00 08/15/16 06:59 Dextrose (Dextrose 50% 50ML Syringe) 25-50ML OF 50% DW IV FOR... UD PRN IV 07/16/16 07:00 08/15/16 06:59 Glucagon (Glucagon Inj) 1 mg UD PRN SQ 07/16/16 07:00 08/15/16 06:59 Insulin Glargine (Lantus Solostar Pen) 5 unit DAILY SC 07/17/16 09:00 08/16/16 08:59 07/18/16 07:59 5 UNIT Budesonide/ Formoterol Fumarate (Symbicort 160/ 4.5 Inh) 2 puffs BID INH 07/16/16 21:00 08/15/16 20:59 07/18/16 07:51 2 PUFFS Cholecalciferol (Vitamin D Tab) 1,000 inter.unit BID PO 07/16/16 21:00 08/15/16 20:59 07/18/16 07:52 1,000 INTER.UNIT Cyanocobalamin (Vitamin B-12 Tab) 1,000 mcg QAM PO 07/17/16 09:00 08/16/16 08:59 07/18/16 07:52 1,000 MCG Furosemide (Lasix Tab) 40 mg QAM PO 07/17/16 09:00 08/16/16 08:59 07/18/16 07:52 40 MG Tiotropium [place] (Spiriva Handihaler Inhaler) 1 puff QAM INH 07/17/16 09:00 08/16/16 08:59 07/18/16 07:53 1 PUFF Heparin Sodium (Porcine) 5 ml 5 ml PRN PRN IV 07/16/16 17:30 08/15/16 17:29 07/18/16 05:53 5 ML Methylprednisolone Sodium Succinate/ Syringe (Solu-Medrol IV/ Syringe) 0.64 ml @ 1.5 mls/min Q12H IV 07/17/16 22:00 08/16/16 21:59 07/17/16 21:18 1.5 MLS/MIN Acetaminophen/ Hydrocodone Bitart ([place] 5/325 Tab) pain not relieved by tylenol Q6 PRN PO 07/17/16 18:00 07/31/16 17:59 07/18/16 06:47 2 TAB Metoclopramide HCl (Reglan Tab) 5 mg ACHS PO 07/17/16 16:30 08/16/16 16:29 07/18/16 06:46 5 MG I & O: 24-Hour Column 07/18/16 08:00 Output Total 0 ml Balance 0 ml Vital Signs: Date Time Temp Pulse Resp B/P Pulse Ox O2 Delivery O2 Flow Rate FiO2 07/18/16 08:06 36.6 64 16 124/71 96 Room Air 07/18/16 07:45 96 Room Air 07/18/16 07:07 56 16 96 Room Air 07/18/16 01:58 62 18 92 BiPAP/CPAP 2.0 07/18/16 01:58 62 92 2.0 07/18/16 00:00 95 CPAP 07/18/16 00:00 36.7 67 20 130/73 95 CPAP 07/17/16 23:14 63 93 2.0 07/17/16 19:45 61 95 2.0 07/17/16 19:30 61 16 95 Room Air 07/17/16 16:10 91 Room Air 2.0 Nasal Cannula 07/17/16 15:53 36.6 75 18 115/69 91 Room Air 07/17/16 14:17 79 16 95 Room Air Laboratory Results: Last 24 Hours Test 07/17/16 16:24 07/17/16 20:26 07/18/16 05:20 07/18/16 07:32 Bedside Glucose 155 mg/dl 129 mg/dl 116 mg/dl Creatinine 0.85 mg/dl Est Creatinine Clear Calc Drug Dose 84.1 ml/min Estimated GFR () 88.8 Estimated GFR (Non- 76.6 Test 07/18/16 11:20 Bedside Glucose 107 mg/dl
[2016-07-18 12:19] LABS: COD UR NEGATIVE NG/ML (CUTOFF=50); HYDROCOD UR 304 NG/ML (CUTOFF=50); HYDROMOR UR NEGATIVE NG/ML (CUTOFF=50); MORPHINE UR NEGATIVE NG/ML (CUTOFF=50); NORHYDROCODONE CONF UR 166 NG/ML (CUTOFF=50); OXYMORPH UR NEGATIVE NG/ML (CUTOFF=50)
[2016-07-18] MEDS: METHYLPREDNISOLONE IV 40 MG in SYRINGE 0 ML IV SCH ×2 (12:40→20:50)
--- NOTE | 2016-07-18 14:51 | Progress Note ---
Internal Med Progress Note Date of Service: Jul 18, 2016. Provider Documentation: SUBJECTIVE: Patient is sitting in her bed in no apparent distress. Still feels SOB but is better than upon admission. Dry cough and remans afebrile. Feels weak.Has not been ambulating much.Intermittent low back pain. OBJECTIVE: Vital Signs-as noted below Examination: General Appearance: Alert/Awake and is in no apparent distress Head: normocephalic Eyes: normal inspection ENT: Ears, Nose & Throat are normal looking. Neck: supple, midline trachea, No JVD Respiratory/Chest: lungs clear, normal breath sounds, no respiratory distress Cardiovascular: regular rate, rhythm, no edema, normal peripheral pulses Abdomen/GI: normal bowel sounds, non tender, soft Extremities/Musculoskeletal: normal inspection, no calf tenderness Neurologic/Psych: no motor/sensory deficits, alert, normal mood/affect, oriented x 3 Skin: normal color, warm/dry Lab data as noted below. ASSESSMENT & PLAN: Swallowing Study IMPRESSION: 1. No aspiration identified. Moderate esophageal dysmotility 2. Please see the speech pathologist report for detailed findings and recommendations. Asthma/COPD Exacerbation: Clinically improving. Presented with increasing shortness of breath for 4 days - has had several admissions in the past for similar symptoms, most recently 06/19-06/22 -Continue IV steroids which is being tapered and around the clock nebs. Will be discharged on oral Prednisone. -Continue Symbicort and Zafirlukast -hx of AAT deficiency, received IVIG monthly -Pulmonary consult reviewed. 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 - Utilize SSI while hospitalized Likely Esophageal Dysmotility: Continue Reglan 5 mg AC & HS. -May follow up with GI as outpatient. -May need to decrease dose of narcotics as they affect motility. Chronic Low Back Pain: Continue home dose of Narcotic pain medications.Seems to have narcotic-liking behavior. -Warm compresses to low back. -Am not ordering any parenteral Narcotics for her despite her repeated demands. DVT Prophylaxis: SQ Lovenox Disposition: Discharge home on 07/19/2016. Vital Signs: Date Time Temp Pulse Resp B/P Pulse Ox O2 Delivery O2 Flow Rate FiO2 07/18/16 14:06 67 16 99 Room Air 07/18/16 08:06 36.6 64 16 124/71 96 Room Air 07/18/16 07:45 96 Room Air 07/18/16 07:07 56 16 96 Room Air 07/18/16 01:58 62 18 92 BiPAP/CPAP 2.0 07/18/16 01:58 62 92 2.0 07/18/16 00:00 95 CPAP 07/18/16 00:00 36.7 67 20 130/73 95 CPAP 07/17/16 23:14 63 93 2.0 07/17/16 19:45 61 95 2.0 07/17/16 19:30 61 16 95 Room Air 07/17/16 16:10 91 Room Air 2.0 Nasal Cannula 07/17/16 15:53 36.6 75 18 115/69 91 Room Air Lab Results: Results Past 24 Hours Test 07/17/16 16:24 07/17/16 20:26 07/18/16 05:20 07/18/16 07:32 Range/Units Bedside Glucose 155 129 116 70-90 mg/dl Creatinine 0.85 0.60-1.20 mg/dl Est Creatinine Clear Calc Drug Dose 84.1 ml/min Estimated GFR () 88.8 Estimated GFR (Non- 76.6 Test 07/18/16 11:20 Range/Units Bedside Glucose 107 70-90 mg/dl
[2016-07-18] MEDS: ENOXAPARIN 40 MG/0.4 ML SYR SC SCH (20:50)
[2016-07-18] MEDS: LORAZEPAM 2 MG TAB PO PRN (20:50)
[2016-07-18] MEDS: DOCUSATE SODIUM 100 MG CAP PO SCH (20:53)
[2016-07-18] MEDS: LIDODERM (LIDOCAINE) PATCH 5% TD SCH (20:54)
[2016-07-19 00:13] VITALS: BP 105/69; PULSE 68; TEMP 36.7; O2SAT 95
[2016-07-19 02:00] VITALS: PULSE 60; O2SAT 92
[2016-07-19] MEDS: LEVALBUTEROL 1.25MG/0.5ML NEB INH SCH ×3 (02:00→14:24)
[2016-07-19] MEDS: METOCLOPRAMIDE HCL 5 MG TAB PO SCH ×2 (05:38→11:26)
[2016-07-19] MEDS: INSULIN ASPART 100 UNITS/ML 3 ML PEN SC SCH ×2 (06:30→11:00)
[2016-07-19 07:19] VITALS: PULSE 58; O2SAT 93
[2016-07-19 07:42] VITALS: BP 150/85; PULSE 57; TEMP 36.5; O2SAT 94
[2016-07-19 07:54] VITALS: O2SAT 94
[2016-07-19] MEDS: BUDESONIDE/FORMOTEROL FUMARATE 160/4.5 60 PUFFS/INHALER INH SCH (08:25)
[2016-07-19] MEDS: CITALOPRAM 40 MG TAB PO SCH (08:31)
[2016-07-19] MEDS: FUROSEMIDE 40 MG TAB PO SCH ×2 (08:32→08:45)
[2016-07-19] MEDS: PANTOprazole SOD 40 MG TAB PO SCH (08:33)
[2016-07-19] MEDS: CYANOCOBALAMIN 500 MCG TAB (VIT B-12) PO SCH (08:35)
[2016-07-19] MEDS: CHOLECALCIFEROL 1000 INTER.UNIT TAB PO SCH (08:36)
[2016-07-19] MEDS: TIOTROPIUM BROMIDE 5 PUFF/90 MCG INH INH SCH (08:42)
[2016-07-19] MEDS: INSULIN GLARGINE SOLOSTAR 100 UNITS/ML 3 ML PEN SC SCH (09:16)
[2016-07-19 09:34] LABS: COMPLETE YES; EOS % 0.1 %; HEMATOCRIT 33.2 % (37-47); IG% 0.5 %; LYMPH % 16.4 %; LYMPH ABS # 1.83 K/uL (1.2-3.4); MEAN CELL VOLUME 77.2 fL (80-100); MEAN CORPUSCULAR HEMOGLOBIN 22.8 pg (25-34); MEAN CORPUSCULAR HGB CONC 29.5 g/dl (32-36); MEAN PLATELET VOLUME 9.9 fL (7.4-10.4); PLATELET COUNT 253 K/uL (130-400); WHITE BLOOD COUNT 11.17 K/uL (4.8-10.8)
[2016-07-19 10:10] LABS: BUN/CREATININE RATIO 25.2 (10-20); CALCIUM 8.7 mg/dl (8.5-10.1); CREATININE 0.81 mg/dl (0.60-1.20); POTASSIUM 3.6 mmol/L (3.5-5.1)
--- NOTE | 2016-07-19 11:26 | Progress Note ---
Internal Med Progress Note Date of Service: Jul 19, 2016. Provider Documentation: SUBJECTIVE: Patient is sitting in her bed in no apparent distress. SOB has improved & is better than upon admission. Dry cough and remans afebrile. Feels weak.Has not been ambulating much.Intermittent low back pain. OBJECTIVE: Vital Signs-as noted below Examination: General Appearance: Alert/Awake and is in no apparent distress Head: normocephalic Eyes: normal inspection ENT: Ears, Nose & Throat are normal looking. Neck: supple, midline trachea, No JVD Respiratory/Chest: lungs clear, normal breath sounds, no respiratory distress Cardiovascular: regular rate, rhythm, no edema, normal peripheral pulses Abdomen/GI: normal bowel sounds, non tender, soft Extremities/Musculoskeletal: normal inspection, no calf tenderness Neurologic/Psych: no motor/sensory deficits, alert, normal mood/affect, oriented x 3 Skin: normal color, warm/dry Lab data as noted below. ASSESSMENT & PLAN: Swallowing Study IMPRESSION: 1. No aspiration identified. Moderate esophageal dysmotility 2. Please see the speech pathologist report for detailed findings and recommendations. Asthma/COPD Exacerbation: Clinically improving. Presented with increasing shortness of breath for 4 days - has had several admissions in the past for similar symptoms, most recently 06/19-06/22 -Continue IV steroids which is being tapered and around the clock nebs. Will be discharged on oral Prednisone. -Continue Symbicort and Zafirlukast -hx of AAT deficiency, received IVIG monthly -Pulmonary consult reviewed. 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 - Utilize SSI while hospitalized Likely Esophageal Dysmotility: Continue Reglan 5 mg AC & HS. -May follow up with GI as outpatient. -May need to decrease dose of narcotics as they affect motility. Chronic Low Back Pain: Continue home dose of Narcotic pain medications.Seems to have narcotic-liking behavior. -Warm compresses to low back. -Am not ordering any parenteral Narcotics for her despite her repeated demands. DVT Prophylaxis: SQ Lovenox Disposition: Discharge home later today. Follow up with PCP on 07/24/2016 @ 1.20 PM. Follow up with Pulmonary in 1-2 weeks. Vital Signs: Date Time Temp Pulse Resp B/P Pulse Ox O2 Delivery O2 Flow Rate FiO2 07/19/16 08:00 Room Air 2.0 Nasal Cannula 07/19/16 07:54 94 Room Air 07/19/16 07:42 36.5 57 20 150/85 94 Room Air 07/19/16 07:19 58 16 93 BiPAP/CPAP 2.0 07/19/16 02:00 60 16 92 BiPAP/CPAP 2.0 07/19/16 02:00 60 92 2.0 07/19/16 00:13 36.7 68 18 105/69 95 BiPAP 07/19/16 00:00 Room Air 07/18/16 23:26 74 93 2.0 07/18/16 20:06 62 16 98 Room Air 07/18/16 16:10 91 Room Air 2.0 Nasal Cannula 07/18/16 15:25 36.6 77 16 108/69 94 Nasal Cannula 2.0 07/18/16 14:06 67 16 99 Room Air Lab Results: Results Past 24 Hours Test 07/18/16 16:26 07/18/16 20:40 07/19/16 07:46 07/19/16 09:25 Range/Units Bedside Glucose 139 149 101 70-90 mg/dl White Blood Count 11.17 4.8-10.8 K/uL Red Blood Count 4.30 4.2-5.4 M/uL Hemoglobin 9.8 12.0-16.0 g/dL Hematocrit 33.2 37-47 % Mean Corpuscular Volume 77.2 80-100 fL Mean Corpuscular Hemoglobin 22.8 25-34 pg Mean Corpuscular Hemoglobin Concent 29.5 32-36 g/dl Platelet Count 253 130-400 K/uL Mean Platelet Volume 9.9 7.4-10.4 fL Neutrophils (%) (Auto) 76.0 % Lymphocytes (%) (Auto) 16.4 % Monocytes (%) (Auto) 7.0 % Eosinophils (%) (Auto) 0.1 % Basophils (%) (Auto) 0.0 % Neutrophils # (Auto) 8.49 1.4-6.5 K/uL Lymphocytes # (Auto) 1.83 1.2-3.4 K/uL Monocytes # (Auto) 0.78 0.11-0.59 K/uL Eosinophils # (Auto) 0.01 0-0.5 K/uL Basophils # (Auto) 0.00 0-0.2 K/uL RDW Standard Deviation 50.6 36.4-46.3 fL RDW Coefficient of Variation 17.9 11.5-14.5 % Immature Granulocyte % (Auto) 0.5 % Immature Granulocyte # (Auto) 0.06 0.00-0.02 K/uL Sodium Level 143 136-145 mmol/L Potassium Level 3.6 3.5-5.1 mmol/L Chloride Level 104 98-107 mmol/L Carbon Dioxide Level 32 21-32 mmol/L Anion Gap 7.0 3-11 mmol/L Blood Urea Nitrogen 20 7-18 mg/dl Creatinine 0.81 0.60-1.20 mg/dl Est Creatinine Clear Calc Drug Dose 88.3 ml/min Estimated GFR () 94.1 Estimated GFR (Non- 81.2 BUN/Creatinine Ratio 25.2 10-20 Random Glucose 127 70-99 mg/dl Calcium Level 8.7 8.5-10.1 mg/dl
[2016-07-19] MEDS ORDERED: PRD20 PO ×2 (11:30)
[2016-07-19] MEDS ORDERED: METO5TAB3 PO (11:30)
[2016-07-19] MEDS ORDERED: XPNINS1255 INH (11:30)
--- NOTE | 2016-07-19 11:32 | Discharge Instructions ---
Discharge Instructions Date of Service Jul 19, 2016. Admission Reason for Admission: Respiratory Failure, Acute Discharge Discharge Diagnosis / Problem: Asthma/COPD Eacerbation Discharge Goals Goal(s): Decrease discomfort, Improve function, Increase independence, Improve disease control, Improve nutritional status, Learn about illness, Diagnostic testing, Therapeutic intervention Activity Recommendations Activity Limitations: resume your previous activity (As Tolerated) Lifting Limitations: no more than 5 pounds Exercise/Sports Limitations: as tolerated May Resume Sexual Activity: when tolerated Shower/Bathe: no limitations Driving or Machine Use: no limitations . Instructions / Follow-Up Instructions / Follow-Up 1. Take all your medications as directed. 2. Follow the tapering instructions for Prednisone and discuss with your PCP/ Ladle Mechanic regarding continuous stable dose of Prednisone. 3. Maintain physical activity as tolerated especially after eating meals. Follow up with PCP on 07/24/2016 @ 1.20 PM. Follow up with Pulmonary in 1-2 weeks. Current Hospital Diet Patient's current hospital diet: Diabetes Type 2 Diet Discharge Diet Recommended Diet: Diabetes Type 2 Diet Pending Studies Studies pending at discharge: no Medical Emergencies . Who to Call and When: Medical Emergencies: If at any time you feel your situation is an emergency, please call 911 immediately. . Non-Emergent Contact Non-Emergency issues call your: Primary Care Provider . . "Provider Documentation" section prepared by Valeriy Douglass. VTE Core Measure Inpt VTE Proph given/why not?: Enoxaparin (Lovenox)SQ
--- NOTE | 2016-07-19 11:36 | Discharge Summary ---
Discharge Summary Date of Service Jul 19, 2016. Discharge Summary Admission Date: Jul 15, 2016 at 21:56 Discharge Date: Jul 19, 2016 Discharge Disposition: Home Principal Diagnosis: Asthma Exacerbation Secondary Diagnoses/Problems: Chronic Low Back Pain Steroids induced Diabetes Esophageal Dysmotility Procedures: Swallowing evaluation Vaccinations: NONE Consultations: Pulmonary medicine Speech Therapy Pending Studies/Follow-Up: Needs to adjust her chronic need for Prednisone upon follow up visit. Medication Reconciliation New Medications: Prednisone (Prednisone) 20 Mg Tab 1 TAB PO QDB for 5 Days Levalbuterol (Levalbuterol) 1.25 Mg/0.5 Ml Nebu 1.25 MG INH Q4H PRN for Shortness of Breath, #60 AMP Metoclopramide HCl (Metoclopramide HCl) 5 Mg Tab 5 MG PO ACHS, #120 TAB 1 Refill Prednisone (Prednisone) 20 Mg Tab 20 MG PO BIDM for 5 Days, TAB Continued Medications: Alendronate Sodium (Fosamax) 70 Mg Tab 70 MG PO WK, TAB TAKE THIS MEDICATION EVERY FRIDAY. Budesonide/Formoterol Fumarate (Symbicort 160/4.5 Inhaler ) Aero 2 PUFFS INH BID, INHALER Cholecalciferol (Vitamin D) 1,000 Unit Tab 1000 UNIT PO BID Citalopram Hydrobromide (Celexa) 40 Mg Tab 40 MG PO QAM Cyanocobalamin (Vitamin B-12) 1,000 Mcg Tab 1000 MCG PO QAM, TAB Docusate Sodium (Colace) 100 Mg Cap 200 MG PO HS, CAP Epinephrine (Epipen 2-Deshawn) 0.3 Mg Inj 0.3 MG IM UD PRN for ALLERGIC REACTION Furosemide (Furosemide) 40 Mg Tab 40 MG PO QAM Glimepiride (Glimepiride) 1 Mg Tab 1 TAB PO DAILY PRN for glucose > 110 for 30 Days, #30 TAB 5 Refills Hydrocodone/Acetaminophen 5MG/325MG ([place] 5MG/325MG) Tab 1-2 TABS PO Q4-6H PRN for Pain, TAB Immune Globulin (Human) Iv (Privigen) 5 Gm/50 Ml Inj Unknown Dose IV MONTHLY Lorazepam (Ativan) 1 Mg Tab 1 MG PO QAM PRN for Anxiety, TAB Lorazepam (Lorazepam) 1 Mg Tab 2 MG PO HS PRN for Anxiety Omeprazole (Prilosec) 20 Mg Cap 20 MG PO BID Oxygen (Oxygen) Gas 2 LITERS NA PRN Polyethylene Glycol 3350 (Miralax) 1 Pow Pow 17 GM PO DAILY PRN for Constipation, #255 GM Potassium Chloride (Potassium Chloride Er) 10 Meq Tab 10 MEQ PO QAM TAKEN WITH FUROSEMIDE Tiotropium [place] (Spiriva Handihaler) 5 Puff/90 Mcg Aerp 1 PUFF INH QAM for 30 Days, #30 INHALER 5 Refills Zafirlukast (Zafirlukast) 20 Mg Tab 20 MG PO BID Discontinued Medications: Ipratropium-Albuterol (Duoneb) 3 Ml Nebu 1 TREATMENT INH Q4H PRN for PRN, INHA Prednisone (Prednisone) 10 Mg Tab 20 MG PO QAM for 30 Days Admission Information HPI (per Admitting provider): 55 year old female who presents to the ER with shortness of breath. Patient has history of asthma and is well known to our service. Patient was admitted to [facility] 06/19 - 06/22 for asthma exacerbation. At discharge, her chronic prednisone was increased to 20mg daily from 15mg. Patient was seen by her chute worker last week and was instructed to increase the prednisone to 40mg daily x 3 days then resume 20mg daily. Patient reports she started to get short of breath 4 days ago. She also has been wheezing. She denies cough or sputum production. No fever or chills. Patient's symptoms have persisted despite use of her nebulizer. She reports an increase in her chronic back pain from the asthma flare up. She denies chest pain. No lightheadedness, dizziness, diaphoresis, or syncopal events. She denies abdominal pain, nausea, vomiting, or diarrhea. No urinary symptoms. In the ER, patient is saturating well on room air. She was given IV solu-medrol and nebulizer. Physical Exam (per Admitting): General Appearance: no apparent distress Head: normocephalic Eyes: normal inspection ENT: hearing grossly normal Neck: supple, no JVD Respiratory/Chest: lungs clear, normal breath sounds, no respiratory distress Cardiovascular: regular rate, rhythm, no edema, normal peripheral pulses Abdomen/GI: normal bowel sounds, non tender, soft Extremities/Musculoskelatal: normal inspection, no calf tenderness Neurologic/Psych: no motor/sensory deficits, alert, normal mood/affect, oriented x 3 Skin: normal color, warm/dry Hospital Course Swallowing Study IMPRESSION: 1. No aspiration identified. Moderate esophageal dysmotility 2. Please see the speech pathologist report for detailed findings and recommendations. Asthma/COPD Exacerbation: Clinically improving. Presented with increasing shortness of breath for 4 days - has had several admissions in the past for similar symptoms, most recently 06/19-06/22 -Continue IV steroids which is being tapered and around the clock nebs. Will be discharged on oral Prednisone. -Continue Symbicort and Zafirlukast -hx of AAT deficiency, received IVIG monthly -Pulmonary consult reviewed. 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 - Utilize SSI while hospitalized Likely Esophageal Dysmotility: Continue Reglan 5 mg AC & HS. -May follow up with GI as outpatient. -May need to decrease dose of narcotics as they affect motility. Chronic Low Back Pain: Continue home dose of Narcotic pain medications.Seems to have narcotic-liking behavior. -Warm compresses to low back. -Am not ordering any parenteral Narcotics for her despite her repeated demands. DVT Prophylaxis: SQ Lovenox Disposition: Discharge home later today. Follow up with PCP on 07/24/2016 @ 1.20 PM. Follow up with Pulmonary in 1-2 weeks. Total time spent on discharge = 40 minutes. This includes examination of the patient, discharge planning, medication reconciliation, and communication with other providers. Discharge Instructions Discharge Goals Goal(s): Decrease discomfort, Improve function, Increase independence, Improve disease control, Improve nutritional status, Learn about illness, Diagnostic testing, Therapeutic intervention Activity Recommendations Activity Limitations: resume your previous activity (As Tolerated) Lifting Limitations: no more than 5 pounds Exercise/Sports Limitations: as tolerated May Resume Sexual Activity: when tolerated Shower/Bathe: no limitations Driving or Machine Use: no limitations . Instructions / Follow-Up Instructions / Follow-Up 1. Take all your medications as directed. 2. Follow the tapering instructions for Prednisone and discuss with your PCP/ Data Processing Systems Project Planner regarding continuous stable dose of Prednisone. 3. Maintain physical activity as tolerated especially after eating meals. Follow up with PCP on 07/24/2016 @ 1.20 PM. Follow up with Pulmonary in 1-2 weeks. Current Hospital Diet Patient's current hospital diet: Diabetes Type 2 Diet Discharge Diet Recommended Diet: Diabetes Type 2 Diet Additional Copies To Lakhwinder Kelly M.D. Clarke, Jessica L., PA-C
[2016-07-19] MEDS: HYDROCODONE/ACETAMOPHEN 5/325MG TAB PO PRN (13:29)
--- NOTE | 2016-07-19 13:34 | PROGRESS NOTE ---
DATE: 07/19/2016 PROBLEM LIST: Includes: 1. Asthma with exacerbation. 2. Obstructive sleep apnea. 3. Anemia. SUBJECTIVE: The patient reports that she is feeling well today. Her breathing is pretty much back to her baseline. She is not having any difficulty with significant cough or congestion at this time. No wheezing. No chest heaviness or tightness. She states that overall, her breathing feels well. She does feel that she is ready for discharge today. She denies any other problems. No chest pain. No chest pressure. No chest heaviness or tightness. She denies any fever or chills. She has not had any GI symptoms. No diarrhea from the antibiotic. No nausea or vomiting. She has not had any problem of swelling in her extremities. OBJECTIVE: GENERAL: The patient is a 55-year-old female sitting in bed in no acute distress. She is alert and oriented x3. Mood is good. Affect is good. No respiratory distress. VITAL SIGNS: Temperature is 36.5, pulse 57, respirations 20, blood pressure is 150/85, and pulse ox is 94% on room air. HEENT: Normocephalic and atraumatic. Pupils equal, round and reactive to light and accommodation. Extraocular movements are intact. [place] moist gingival and buccal mucosa. NECK: Supple. There is no mass. No adenopathy. No bruits. CHEST: Overall breath sounds are pretty good. I do not really appreciate any wheeze at this time. No rale or rhonchi. CARDIOVASCULAR: Regular rate and rhythm. No murmurs, gallops or rubs. ABDOMEN: Bowel sounds are present. Soft and nontender. No guarding, rigidity or organomegaly. EXTREMITIES: No erythema or edema. NEUROLOGIC: Cranial nerves II through XII are intact. No focal deficit noted. LABORATORY DATA: Shows a white count of 11,000, H and H 9.8 and 33.2 which is an improvement from yesterday, and platelet count 253,000. BUN 20 and creatinine 0.81. No new imaging data. IMPRESSION AND PLAN: 1. This is a 55-year-old female who we follow in the office for fairly severe asthma, who presented with exacerbation. At this time, she is doing well. From a Pulmonary standpoint, she can be discharged later today. At this point, we would recommend to taper prednisone starting at 40 mg and taper by 10 mg every 2 days. She already an appointment with our office on the . She will be followed up then. Of note is that the patient reports that her is exhibiting some flu-type symptoms. He is a patient of ours also, so I am going to call in some Tamiflu for both him for treatment dose and for her for prophylaxis. 2. Obstructive sleep apnea. The patient is to continue her CPAP. 3. Anemia. The patient is stable. Her hemoglobin is improving today.
[2016-07-19 13:58] VITALS: BP 150/85; PULSE 57; TEMP 36.5; O2SAT 94
[2016-08-06] MEDS ORDERED: PRED10TA PO (08:31)
[2016-08-23] MEDS ORDERED: PRED1SUS OPR (08:55)
[2016-08-23] MEDS ORDERED: BROM0.0911 OPR (08:55)
[2016-10-30] MEDS ORDERED: FLX5 PO (11:47)
[2016-11-27] MEDS ORDERED: IPRASOL4 NEB (08:31)
[2016-11-27] MEDS ORDERED: VNTHFA/IN INH (08:31)
[2016-11-27] MEDS ORDERED: [UNRECOGNIZED DRUG - CODE] IV (14:40)
[2016-11-27] MEDS ORDERED: PRED10TA PO ×2 (15:15→18:42)
[2016-11-27] MEDS ORDERED: CHOL100010 PO (15:47)
[2016-11-27] MEDS ORDERED: EPP3/2 IM (16:07)
[2016-11-27] MEDS ORDERED: OXGN (16:13)
[2016-11-27] MEDS ORDERED: OMEP20CA9 PO (16:25)
[2016-11-27] MEDS ORDERED: FLX/5 PO (16:49)
[2016-11-27] MEDS ORDERED: CITA40TA4 PO (16:49)
[2016-11-27] MEDS ORDERED: DOCU-94 PO (17:39)
[2016-11-27] MEDS ORDERED: ATV/1 PO (18:40)
[2016-11-27] MEDS ORDERED: CYAN10005 PO (19:15)
[2016-11-27] MEDS ORDERED: ATV1 PO (20:38)
[2016-11-27] MEDS ORDERED: HYDR-5688 PO (20:40)
[2016-11-29] MEDS ORDERED: ZTHM250 PO (09:07)
[2016-11-29] MEDS ORDERED: PRD20 PO (09:07)
== END 2016-07-19 15:43 | disposition home or self-care (01) | DRG 202 ==
LOC: ENRESERVDT → ENRESERVTM → C.EDB 16:37 → C.2E 21:56 → C.MS2W 07-16 14:08
PROVIDERS: ADMIT Emergency Medicine; ATTEND Emergency Medicine
DX: J45.51 Severe persistent asthma with (acute) exacerbation (principal); J44.1 Chronic obstructive pulmonary disease with (acute) exacerbation; E27.40 Unspecified adrenocortical insufficiency; F41.9 Anxiety disorder, unspecified; E88.01 Alpha-1-antitrypsin deficiency; G89.29 Other chronic pain; F32.9 Major depressive disorder, single episode, unspecified; E78.5 Hyperlipidemia, unspecified; K21.9 Gastro-esophageal reflux disease without esophagitis; Z86.711 Personal history of pulmonary embolism; G47.33 Obstructive sleep apnea (adult) (pediatric); Z79.52 Long term (current) use of systemic steroids; M81.0 Age-related osteoporosis without current pathological fracture; Z90.49 Acquired absence of other specified parts of digestive tract; Z82.49 Family history of ischemic heart disease and other diseases of the circulatory system; Z80.9 Family history of malignant neoplasm, unspecified; Z84.1 Family history of disorders of kidney and ureter; Z83.79 Family history of other diseases of the digestive system; Z87.891 Personal history of nicotine dependence; Z88.6 Allergy status to analgesic agent; Z91.041 Radiographic dye allergy status; Z88.8 Allergy status to other drugs, medicaments and biological substances; Z88.1 Allergy status to other antibiotic agents; Z99.81 Dependence on supplemental oxygen; Z79.899 Other long term (current) drug therapy; D64.9 Anemia, unspecified; Z90.710 Acquired absence of both cervix and uterus; M54.5 Low back pain; K57.90 Diverticulosis of intestine, part unspecified, without perforation or abscess without bleeding; E66.9 Obesity, unspecified; Z68.34 Body mass index [BMI] 34.0-34.9, adult; E09.9 Drug or chemical induced diabetes mellitus without complications; R09.02 Hypoxemia

== ENCOUNTER → 2016-08-14 | Day surgery (SDC) | payer OTHER ==
[2016-08-06 08:32] VITALS: Ht 162.6 cm; Wt 91.4 kg
[~2016-08-14] VITALS: Ht 162.6 cm; Wt 91.4 kg
[~2016-08-14] MED LIST changes: +500ML BSS 0.3ML EPI 1:1000PF IRRIG ONE; -ACCL20 PO; +ACETAMINOPHEN 325 MG TAB PO PRN; +AMVISC PLUS 0.8ML SYRINGE INT OCU ONE; +ATROPINE SULFATE 0.1 MG/ML 5ML SYR IV PRN; +ATV/1 PO; +ATV1 PO; +AZIT-57 PO; +AZIT-60 PO; +BNT20 PO; +BROM0.0911 OPR; +BSS FLUSH ONE; +CHOL100010 PO; +CITA40TA4 PO; +CMD5 PO; +CYAN10005 PO; +DOCU-94 PO; +ENDOCOAT 0.85ML SYRINGE INT OCU ONE; +ENOX30IN4 SQ; +EPP3/2 IM; +EpHEDrine SULFATE INJ 50 MG/ML AMP IV PRN; +EpINEphrine INJ 1MG/ML AMP 1 MG/ML AMP ONE; +FENTANYL CITRATE INJ 50 MCG/1 ML 2 ML VIAL ONE; +FLX/5 PO; +FLX5 PO; +FRRS300 PO; +FURO40TA3 PO; +HYDR-5688 PO; -IPRASOL4 INH; +IPRASOL4 NEB; +LACTATED RINGER'S 1000ML 500 ML IV SCH; +LEVA1.258 INH; +LIDOCAINE 4% OP SOLN DROP CHARGE ONE; +LIDOCAINE 4% OP SOLN DROP CHARGE OPR SCH; +LIDOCAINE HCL 1% MPF 2 ML VIAL ONE; +LSX40 PO; +MIDAZOLAM HCL 1 MG/ML 2ML VIAL ONE; +MIX: 4ML BSS 1ML EPI 1:1000 PF TOP ONE; +MOXIFLOXACIN OPH SOLN PER DROP CHARGE ONE; +MRLP17 PO; +OMEP20CA9 PO; +OXGN; +OXYC-609 PO; +OXYC1TAB3 PO; +POTA-74 PO; +POTA10CA28 PO; +POVIDONE-IODINE OP SOLN 30 ML BTL ONE; +PRD10 PO; +PRD20 PO; +PRED1SUS OPR; +PROPARACAINE 0.5% OP SOLN PER DROP CHARGE OPR SCH; +PRT40 PO; -SPRIN INH; +SPRIN PO; +TOBRAMYCIN/DEXAMETHASONE OPH OINT PER APPLN CHARGE ONE; +VNTHFA/IN INH; +WARF4TAB8 PO; +[UNRECOGNIZED DRUG - CODE] IV
[2016-08-14] MEDS: CYCLOPENTOLATE HCL 1% OP SOLN PER DROP CHARGE OPR SCH ×3 (06:13→10:38)
[2016-08-14] MEDS: PHENYLEPHRINE HCL 2.5% OP SOLN PER DROP CHARGE OPR SCH ×3 (10:31→10:41)
[2016-08-14] MEDS: TROPICAMIDE 1% OP SOLN PER DROP CHARGE OPR SCH ×3 (10:32→10:42)
[2016-08-14] MEDS: MOXIFLOXACIN OPH SOLN PER DROP CHARGE OPR SCH ×3 (10:34→10:44)
--- NOTE | 2016-08-14 11:02 | History & Physical Bridge - SC ---
H&P Re-Evaluation Bridge Note: I have examined the patient, reviewed the History & Physical and in the interval since the performance of the History & Physical I have noted the following changes of clinical significance: No changes noted
--- NOTE | 2016-08-14 12:18 | [facility] Post Operative Brief Note ---
Immediate Operative Summary Operative Date Aug 14, 2016. Pre-Operative Diagnosis Cataract Right Eye Post-Operative Diagnosis Same Procedure(s) Performed Right Cataract Phacoemulsification With Intraocular Lens Implant Surgeon Dr. Nance Mathematics Academic Chair Surgeon(s) None Estimated Blood Loss 0 mL Findings right cataract Specimens None Complication(s) None Disposition
--- NOTE | 2016-08-14 12:19 | [facility] Operative Report ---
Operative Report Date of Service Aug 14, 2016. Operative Report Phaco with monofocal IOL DATE OF OPERATION: 08/14/16 PREOPERATIVE DIAGNOSIS: Senile nuclear cataract, right eye POSTOPERATIVE DIAGNOSIS: Senile nuclear cataract, right eye PROCEDURE PERFORMED: Phacoemulsification with intraocular lens implantation, right eye SURGEON: Dr. Ye Nance ANESTHESIA: Topical with 1% intracameral lidocaine and monitored anesthesia care COMPLICATIONS: None DESCRIPTION OF PROCEDURE: After positively identifying the patient both verbally and by wristband in the preoperative area, the right eye was marked as the operative eye. The patient was then brought back to the operating room by the anesthesia and nursing staff where they were given a drop of Lidocaine and betadine into the operative eye. They were then sterilely prepped and draped in the standard fashion typical for ophthalmic surgery. Steri-strips were placed along the upper eyelids to keep the lashes back, and a lid speculum was placed into the operative eye. At this point, a documented time out was performed with members of the ophthalmology, nursing, and anesthesia staffs all agreeing upon the correct patient, correct location for surgery, correct procedure, and correct type and power of intraocular lens to be implanted. The microscope was then swung into position. First, a paracentesis wound was made using a sideport blade. Then, in sequence, 1% preservative-free lidocaine followed by Endocoat viscoelastic was injected into the anterior chamber. Next , the main incision was made with a keratome blade in triplanar fashion. A sharp cystotome was introduced into the eye and used to create a tear in the anterior capsule, which was directed into a continuous curvilinear capsulorrhexis using Utrata forceps. Hydrodissection was then performed with BSS on a flat-tip cannula. Next, the phacoemulsification handpiece was introduced into the eye and used to remove the nucleus in a [id number] fashion. This was done without complication and then the irrigation-aspiration handpiece was introduced into the eye and used to remove all remaining cortical and epinuclear material. Amvisc was then injected into the anterior chamber as well as into the capsular bag and using the lens injector system, an MX60 20.5 D lens, serial number [id number], and expiration date 01/2019 was injected into the capsular bag and rotated into the correct position. Next, the irrigation- aspiration handpiece was used to remove all remaining Amvisc. BSS was used to hydrate the main wound, and then BSS was injected into the paracentesis site to reach physiologic pressure and then the main wound was checked and found to be watertight. The patient was given drops of Vigamox and Tobradex ointment into the operative eye, and then the surrounding area was cleaned and dried. A clear plastic shield was placed over the eye and the patient was then sat up and taken from the operating room by the anesthesia staff having tolerated the procedure well and suffering no complications. DISPOSITION: The patient was returned to the recovery room in stable condition. I attest to the content of the Intraoperative Record and any orders documented therein. Any exceptions are noted below.
--- NOTE | 2016-08-14 12:20 | Discharge Instructions-SurgCtr ---
Discharge Instructions Date of Service Aug 14, 2016. Visit Reason for Visit: Cataract Right Eye Discharge Discharge Diagnosis / Problem: right cataract Discharge Goals Goal(s): Decrease discomfort, Improve function Activity Recommendations Activity Limitations: as noted below Anesthesia . Post Anesthesia Instructions: If you have had General Anesthesia or IV Sedation: * Do not drive today. * Resume driving when surgeon permits. * Do not make important decisions or sign legal documents today. * Call surgeon for: 1. Temperature elevations greater than 101 degrees F. 2. Uncontrollable pain. 3. Excessive bleeding. 4. Persistent nausea and vomiting. 5. Medication intolerance (nausea, vomiting or rash). * For nausea and vomiting use only clear liquids such as: tea, soda, bouillon until nausea subsides, then gradually increase diet as tolerated. * If you have any concerns or questions, call your surgeon's office. If physician is unavailable and it is an emergency, call 911 or go to the nearest emergency room. . Instructions / Follow-Up Instructions / Follow-Up ACTIVITY RECOMMENDATIONS: * Light activities. * You may walk outside, read, watch television. * You may notice redness on the white part of the eye and some blurry vision - this is normal. MEDICATIONS: Resume previous medications unless instructed otherwise by your surgeon. Start all eye drops at 2:30 pm today: * Eye drops (today): Prednisone - one drop in operative eye every 2 hours while awake Polytrim - one drop in operative eye every 2 hours while awake Bromfenac - one drop in operative eye daily SPECIAL CARE INSTRUCTIONS: * Tape plastic shield over eye to sleep at night. Call your doctor at with any concerns or problems. FOLLOW UP VISIT: Follow-up with Dr Nance at [facility] as scheduled. Diet Recommendations Home Diet: no limitations Procedures Procedures Performed: Right Cataract Phacoemulsification With Intraocular Lens Implant Pending Studies Studies pending at discharge: no Medical Emergencies . Who to Call and When: Medical Emergencies: If at any time you feel your situation is an emergency, please call 911 immediately. . Non-Emergent Contact Non-Emergency issues call your: Surgeon . . "Provider Documentation" section prepared by Ye Nance.
[2016-08-14 12:23] VITALS: TEMP 36.1
--- NOTE | 2016-08-14 12:31 | Anesthesia Progress Nt - [facility] ---
Anesthesia Post Op Note Date & Time Aug 14, 2016 at 12:31 Vital Signs Pain Intensity: 0 Vital Signs Past 12 Hours Date Time Temp Pulse Resp B/P Pulse Ox O2 Delivery O2 Flow Rate FiO2 08/14/16 10:06 36.7 70 20 127/84 97 Room Air Notes Mental Status: alert / awake / arousable, participated in evaluation Pt Amnestic to Procedure: Yes Nausea / Vomiting: adequately controlled Pain: adequately controlled Airway Patency, RR, SpO2: stable & adequate BP & HR: stable & adequate Hydration State: stable & adequate Anesthetic Complications: no major complications apparent
[2016-08-14 12:45] VITALS: BP 110/74; PULSE 65; O2SAT 97
== END | disposition home or self-care (01) ==
LOC: X.SURG 09:22
PROVIDERS: ATTEND Ophthalmology
DX: H25.11 Age-related nuclear cataract, right eye (principal)

== ENCOUNTER → 2016-08-28 | Day surgery (SDC) | payer OTHER ==
[2016-08-23 08:55] VITALS: Ht 162.6 cm; Wt 90.9 kg
[~2016-08-28] VITALS: Ht 162.6 cm; Wt 90.9 kg
[~2016-08-28] MED LIST changes: +AcetaZOLAMIDE 250 MG TAB PO SCH; +LIDOCAINE 4% OP SOLN DROP CHARGE OPL SCH; -LIDOCAINE 4% OP SOLN DROP CHARGE OPR SCH; +MOXIFLOXACIN OPH SOLN PER DROP CHARGE OPL SCH; +NURSING VERBAL MED ORDER ONE; +PROPARACAINE 0.5% OP SOLN PER DROP CHARGE OPL SCH; -PROPARACAINE 0.5% OP SOLN PER DROP CHARGE OPR SCH
[2016-08-28] MEDS: PHENYLEPHRINE HCL 2.5% OP SOLN PER DROP CHARGE OPL SCH ×3 (11:01→11:11)
[2016-08-28] MEDS: TROPICAMIDE 1% OP SOLN PER DROP CHARGE OPL SCH ×3 (11:02→11:12)
[2016-08-28] MEDS: CYCLOPENTOLATE HCL 1% OP SOLN PER DROP CHARGE OPL SCH ×3 (11:03→11:13)
--- NOTE | 2016-08-28 11:09 | History & Physical Bridge - SC ---
H&P Re-Evaluation Bridge Note: I have examined the patient, reviewed the History & Physical and in the interval since the performance of the History & Physical I have noted the following changes of clinical significance: No changes noted. Left eye cataract surgery.
--- NOTE | 2016-08-28 12:19 | [facility] Post Operative Brief Note ---
Immediate Operative Summary Operative Date Aug 28, 2016. Pre-Operative Diagnosis Cataract Left Eye Post-Operative Diagnosis Same Procedure(s) Performed Left Cataract Phacoemulsification With Intraocular Lens Implant Surgeon Dr. Nance [facility] Facilities Specialist Surgeon(s) None Estimated Blood Loss 0 Findings left cataract Specimens None Complication(s) None Disposition
--- NOTE | 2016-08-28 12:19 | [facility] Operative Report ---
Operative Report Date of Service Aug 28, 2016. Operative Report Phaco with monofocal IOL DATE OF OPERATION: 08/28/16 PREOPERATIVE DIAGNOSIS: Senile nuclear cataract, left eye POSTOPERATIVE DIAGNOSIS: Senile nuclear cataract, left eye PROCEDURE PERFORMED: Phacoemulsification with intraocular lens implantation, left eye SURGEON: Dr. Ye Nance ANESTHESIA: Topical with 1% intracameral lidocaine and monitored anesthesia care COMPLICATIONS: None DESCRIPTION OF PROCEDURE: After positively identifying the patient both verbally and by wristband in the preoperative area, the left eye was marked as the operative eye. The patient was then brought back to the operating room by the anesthesia and nursing staff where they were given a drop of Lidocaine and betadine into the operative eye. They were then sterilely prepped and draped in the standard fashion typical for ophthalmic surgery. Steri-strips were placed along the upper eyelids to keep the lashes back, and a lid speculum was placed into the operative eye. At this point, a documented time out was performed with members of the ophthalmology, nursing, and anesthesia staffs all agreeing upon the correct patient, correct location for surgery, correct procedure, and correct type and power of intraocular lens to be implanted. The microscope was then swung into position. First, a paracentesis wound was made using a sideport blade. Then, in sequence, 1% preservative-free lidocaine followed by Endocoat viscoelastic was injected into the anterior chamber. Next , the main incision was made with a keratome blade in triplanar fashion. A sharp cystotome was introduced into the eye and used to create a tear in the anterior capsule, which was directed into a continuous curvilinear capsulorrhexis using Utrata forceps. Hydrodissection was then performed with BSS on a flat-tip cannula. Next, the phacoemulsification handpiece was introduced into the eye and used to remove the nucleus in a xhcyia-xbi-jibweqz fashion. This was done without complication and then the irrigation-aspiration handpiece was introduced into the eye and used to remove all remaining cortical and epinuclear material. Amvisc was then injected into the anterior chamber as well as into the capsular bag and using the lens injector system, an MX60 20.0 D lens, serial number [id number], and expiration date 03/2019 was injected into the capsular bag and rotated into the correct position. Next, the irrigation- aspiration handpiece was used to remove all remaining Amvisc. BSS was used to hydrate the main wound, and then BSS was injected into the paracentesis site to reach physiologic pressure and then the main wound was checked and found to be watertight. The patient was given drops of Vigamox and Tobradex ointment into the operative eye, and then the surrounding area was cleaned and dried. A clear plastic shield was placed over the eye and the patient was then sat up and taken from the operating room by the anesthesia staff having tolerated the procedure well and suffering no complications. DISPOSITION: The patient was returned to the recovery room in stable condition. I attest to the content of the Intraoperative Record and any orders documented therein. Any exceptions are noted below.
--- NOTE | 2016-08-28 12:21 | Discharge Instructions-SurgCtr ---
Discharge Instructions Date of Service Aug 28, 2016. Visit Reason for Visit: Cataract Left Eye Discharge Discharge Diagnosis / Problem: left cataract Discharge Goals Goal(s): Decrease discomfort, Improve function Activity Recommendations Activity Limitations: as noted below Anesthesia . Post Anesthesia Instructions: If you have had General Anesthesia or IV Sedation: * Do not drive today. * Resume driving when surgeon permits. * Do not make important decisions or sign legal documents today. * Call surgeon for: 1. Temperature elevations greater than 101 degrees F. 2. Uncontrollable pain. 3. Excessive bleeding. 4. Persistent nausea and vomiting. 5. Medication intolerance (nausea, vomiting or rash). * For nausea and vomiting use only clear liquids such as: tea, soda, bouillon until nausea subsides, then gradually increase diet as tolerated. * If you have any concerns or questions, call your surgeon's office. If physician is unavailable and it is an emergency, call 911 or go to the nearest emergency room. . Instructions / Follow-Up Instructions / Follow-Up ACTIVITY RECOMMENDATIONS: * Light activities. * You may walk outside, read, watch television. * You may notice redness on the white part of the eye and some blurry vision - this is normal. MEDICATIONS: Resume previous medications unless instructed otherwise by your surgeon. Start all eye drops at 2:30 pm today: * Eye drops (today): Prednisone - one drop in operative eye every 2 hours while awake Polytrim - one drop in operative eye every 2 hours while awake Bromfenac - one drop in operative eye daily SPECIAL CARE INSTRUCTIONS: * Tape plastic shield over eye to sleep at night. Call your doctor at with any concerns or problems. FOLLOW UP VISIT: Follow-up with Dr Nance at [facility] as scheduled. Diet Recommendations Home Diet: no limitations Procedures Procedures Performed: Left Cataract Phacoemulsification With Intraocular Lens Implant Pending Studies Studies pending at discharge: no Medical Emergencies . Who to Call and When: Medical Emergencies: If at any time you feel your situation is an emergency, please call 911 immediately. . Non-Emergent Contact Non-Emergency issues call your: Surgeon . . "Provider Documentation" section prepared by Ye Nance. .
[2016-08-28 12:23] VITALS: TEMP 36.4
[2016-08-28 12:39] VITALS: BP 127/80; PULSE 68; O2SAT 97
--- NOTE | 2016-08-28 12:48 | Anesthesia Progress Nt - [facility] ---
Anesthesia Post Op Note Date & Time Aug 28, 2016 at 12:48 Vital Signs Pain Intensity: 0 Vital Signs Past 12 Hours Date Time Temp Pulse Resp B/P Pulse Ox O2 Delivery O2 Flow Rate FiO2 08/28/16 12:39 68 16 127/80 97 Room Air 08/28/16 12:23 36.4 73 18 128/86 95 Room Air 08/28/16 10:53 36.7 70 16 143/80 96 Room Air Notes Mental Status: alert / awake / arousable, participated in evaluation Pt Amnestic to Procedure: Yes Nausea / Vomiting: adequately controlled Pain: adequately controlled Airway Patency, RR, SpO2: stable & adequate BP & HR: stable & adequate Hydration State: stable & adequate Anesthetic Complications: no major complications apparent
== END | disposition home or self-care (01) ==
LOC: X.SURG 10:39
PROVIDERS: ATTEND Ophthalmology
DX: H25.12 Age-related nuclear cataract, left eye (principal); E11.36 Type 2 diabetes mellitus with diabetic cataract; G47.33 Obstructive sleep apnea (adult) (pediatric); J45.909 Unspecified asthma, uncomplicated; Z86.718 Personal history of other venous thrombosis and embolism; Z86.711 Personal history of pulmonary embolism; Z86.73 Personal history of transient ischemic attack (TIA), and cerebral infarction without residual deficits; Z79.899 Other long term (current) drug therapy

== ENCOUNTER 2016-09-13 13:27 | Inpatient (IN) | payer OTHER ==
[~2016-09-13] VITALS: Ht 165.1 cm; Wt 94.0 kg
[~2016-09-13 13:27] MED LIST changes: -500ML BSS 0.3ML EPI 1:1000PF IRRIG ONE; -ACETAMINOPHEN 325 MG TAB PO PRN; -AMVISC PLUS 0.8ML SYRINGE INT OCU ONE; -ATROPINE SULFATE 0.1 MG/ML 5ML SYR IV PRN; -ATV/1 PO; -ATV1 PO; -AZIT-57 PO; -AZIT-60 PO; -AcetaZOLAMIDE 250 MG TAB PO SCH; -BNT20 PO; -BSS FLUSH ONE; -CHOL100010 PO; -CITA40TA4 PO; -CMD5 PO; -CYAN10005 PO; -DOCU-94 PO; -ENDOCOAT 0.85ML SYRINGE INT OCU ONE; -ENOX30IN4 SQ; -EPP3/2 IM; -EpHEDrine SULFATE INJ 50 MG/ML AMP IV PRN; -EpINEphrine INJ 1MG/ML AMP 1 MG/ML AMP ONE; -FENTANYL CITRATE INJ 50 MCG/1 ML 2 ML VIAL ONE; -FLX/5 PO; -FLX5 PO; -FRRS300 PO; -FURO40TA3 PO; -HYDR-5688 PO; -IPRASOL4 NEB; -LACTATED RINGER'S 1000ML 500 ML IV SCH; -LEVA1.258 INH; -LIDOCAINE 4% OP SOLN DROP CHARGE ONE; -LIDOCAINE 4% OP SOLN DROP CHARGE OPL SCH; -LIDOCAINE HCL 1% MPF 2 ML VIAL ONE; -LSX40 PO; -MIDAZOLAM HCL 1 MG/ML 2ML VIAL ONE; -MIX: 4ML BSS 1ML EPI 1:1000 PF TOP ONE; -MOXIFLOXACIN OPH SOLN PER DROP CHARGE ONE; -MOXIFLOXACIN OPH SOLN PER DROP CHARGE OPL SCH; -MRLP17 PO; -NURSING VERBAL MED ORDER ONE; -OMEP20CA9 PO; -OXGN; -OXYC-609 PO; -OXYC1TAB3 PO; -POTA-74 PO; -POTA10CA28 PO; -POVIDONE-IODINE OP SOLN 30 ML BTL ONE; -PRD10 PO; -PRD20 PO; -PROPARACAINE 0.5% OP SOLN PER DROP CHARGE OPL SCH; -PRT40 PO; -SPRIN PO; -TOBRAMYCIN/DEXAMETHASONE OPH OINT PER APPLN CHARGE ONE; -VNTHFA/IN INH; -WARF4TAB8 PO; -[UNRECOGNIZED DRUG - CODE] IV
[2016-09-13] MEDS ORDERED: METHYLPREDNISOLONE 125 MG VIAL IV STA (13:56)
--- NOTE | 2016-09-13 13:57 | EMERGENCY ROOM VISIT NOTE ---
History Report prepared by Jean-Pierre: Bora Lombardi Under the Supervision of: Dr. Ashley Rivera D.O. First contact with patient: 13:42 Chief Complaint: RESPIRATORY PROBLEMS Stated Complaint: ASTHMA Nursing Triage Summary: pt here with asthma flare up since last pm. pt states used home meds with no relief. non prod cough History of Present Illness The patient is a 55 year old female who presents to the Emergency Room with complaints of acute asthma exacerbation that started last night. The patient feels tightness and restriction in her airways, and is feeling short of breath. She does not have much of a cough. She denies fevers, chills, congestion or rhinorrhea, chest pain, new abdominal discomfort, changes in bowel or urinary habits, or leg swelling. The patient is in the ED almost every month with asthma exacerbation. She is always admitted and has never required intubation. She has had asthma her whole life and has many triggers. The patient follows up with a vp security. She takes Prednisone 10 mg. She no longer uses a regular inhaler but did use a rescue inhaler yesterday. The patient suffers from chronic back pain, currently rated 8/10 in severity. She takes [place]field at home. Source of History: patient Onset: last night Position: other (respiratory) Quality: other (asthma) Timing: other (exacerbation) Associated Symptoms: + SOB, No abdominal pain, No chest pain, No chills, No cough, No diarrhea, No fevers, No urinary symptoms Review of Systems See HPI for pertinent positives & negatives. A total of 10 systems reviewed and were otherwise negative. 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 (13) Microscopic hematuria (14) Osteoporosis (15) Respiratory failure, acute (16) Sleep apnea (17) Vertebral fracture, closed Surgical Problems: (1) H/O sinus surgery (2) History of carpal tunnel surgery (3) S/P cardiac cath (4) S/P herniorrhaphy (5) Status post appendectomy (6) Status post hernia repair (7) Status post partial colectomy (8) Status post thermoplasty (9) Status post thermoplasty Family History FH: heart disease FATHER FH: sleep apnea MOTHER FHx: cancer FHx: gallbladder disease Hypertension MOTHER Kidney disease MOTHER Social History Smoking Status: Former Smoker Alcohol Use: none Housing Status: lives with significant other Current/Historical Medications Scheduled Alendronate Sodium (Fosamax), 70 MG PO WK Bromfenac Sodium (Ophth) (Bromfenac), 1 DROPS OPR HS Cholecalciferol (Vitamin D), 1,000 UNIT PO BID Citalopram Hydrobromide (Celexa), 40 MG PO QAM Cyanocobalamin (Vitamin B-12), 1,000 MCG PO QAM Docusate Sodium (Colace), 200 MG PO HS Furosemide (Furosemide), 40 MG PO QAM Immune Globulin (Human) Iv (Privigen), Unknown Dose IV MONTHLY Omeprazole (Prilosec), 20 MG PO BID Oxygen (Oxygen), 2 LITERS NA PRN Potassium Chloride (Potassium Chloride Er), 10 MEQ PO BID Prednisolone Acetate (Ophth) (Omnipred), 1 DROPS OPR TID Prednisone Tab (Prednisone), 10 MG PO QAM Scheduled PRN Albuterol Hfa (Ventolin Hfa), 2-4 PUFFS INH Q6H PRN for SOB/Wheezing Epinephrine (Epipen 2-Deshawn), 0.3 MG IM UD PRN for ALLERGIC REACTION Glimepiride (Glimepiride), 1 TAB PO DAILY PRN for glucose > 110 Hydrocodone/Acetaminophen 5MG/325MG (Mayfield 5MG/325MG), 1-2 TABS PO Q4-6H PRN for Pain Ipratropium-Albuterol (Duoneb), 1 TREATMENT INH Q4H PRN for SOB/Wheezing Lorazepam (Ativan), 1 MG PO QAM PRN for Anxiety Lorazepam (Lorazepam), 2 MG PO HS PRN for Anxiety Polyethylene Glycol 3350 (Miralax), 17 GM PO DAILY PRN for Constipation Allergies Coded Allergies: Aspirin (Verified Allergy, Intermediate, HIVES, 09/13/16) Ibuprofen (Verified Allergy, Intermediate, HIVES, 09/13/16) Levofloxacin (Verified Allergy, Intermediate, HIVES, 09/13/16) Iodinated Diagnostic Agents (Verified Allergy, Unknown, HIVES, 09/13/16) Pregabalin (Verified Adverse Reaction, Intermediate, SEVERE DEPRESSION, 09/13/16) Zolpidem (Verified Adverse Reaction, Intermediate, HALLUCINATIONS, 09/13/16) Gabapentin (Verified Adverse Reaction, Mild, GOOFY THOUGHTS, 09/13/16) Physical Exam Vital Signs Date Time Temp Pulse Resp B/P Pulse Ox O2 Delivery O2 Flow Rate FiO2 09/13/16 18:01 73 12 98 Nasal Cannula 2.0 09/13/16 16:40 96 Nasal Cannula 2.0 09/13/16 16:27 89 15 88 Room Air 09/13/16 15:57 85 16 99 Mask Nebulizer 09/13/16 15:31 82 24 127/76 98 Mask Nebulizer 09/13/16 14:57 64 17 100 Mask Nebulizer 09/13/16 14:27 61 11 95 Mask Nebulizer 09/13/16 13:57 67 18 96 Mask Nebulizer 09/13/16 13:49 67 09/13/16 13:34 36.7 76 16 126/72 93 Room Air Physical Exam GENERAL: alert, well appearing, well nourished, no distress, non-toxic EYE EXAM: normal conjunctiva, PERRL and EOM's grossly intact OROPHARYNX: no exudate, no erythema, lips, buccal mucosa, and tongue normal and mucous membranes are moist. Dentures in place. NECK: supple, no nuchal rigidity, no adenopathy, non-tender LUNGS: Decreased breath sounds bilaterally. End expiratory wheeze noted bilaterally. HEART: no murmurs, S1 normal and S2 normal ABDOMEN: abdomen soft, non-tender, normo-active bowel sounds, no masses, no rebound or guarding. BACK: Back is symmetrical on inspection and there is no deformity, no midline tenderness, no CVA tenderness. SKIN: no rashes and no bruising UPPER EXTREMITIES: upper extremities are grossly normal. LOWER EXTREMITIES: No pitting edema. NEURO EXAM: Normal sensorium, cranial nerves II-XII grossly intact, normal speech, no gross weakness of arms, no gross weakness of legs. Gross sensation intact. Medical Decision & Procedures ER Provider Diagnostic Interpretation: Xray results per the radiologist and my interpretation. CHEST ONE VIEW PORTABLE CLINICAL HISTORY: sob dyspnea COMPARISON STUDY: 07/15/2016 FINDINGS: Central catheter remains within the superior vena cava at the juncture with the right atrium. Lungs are clear. Diaphragms smooth. IMPRESSION: No acute process. Electronically signed by: Vivek Sanders M.D. 09/13/2016 2:16 PM Dictated Date/Time: 09/13/2016 2:15 PM Laboratory Results Test 09/13/16 16:35 Immature Granulocyte % (Auto) 0.2 % White Blood Count 8.98 K/uL (4.8-10.8) Red Blood Count 4.20 M/uL (4.2-5.4) Hemoglobin 9.1 g/dL (12.0-16.0) Hematocrit 32.2 % (37-47) Mean Corpuscular Volume 76.7 fL (80-100) Mean Corpuscular Hemoglobin 21.7 pg (25-34) Mean Corpuscular Hemoglobin Concent 28.3 g/dl (32-36) Platelet Count 217 K/uL (130-400) Mean Platelet Volume 10.9 fL (7.4-10.4) Neutrophils (%) (Auto) 61.5 % Lymphocytes (%) (Auto) 28.3 % Monocytes (%) (Auto) 5.7 % Eosinophils (%) (Auto) 3.9 % Basophils (%) (Auto) 0.4 % Neutrophils # (Auto) 5.52 K/uL (1.4-6.5) Lymphocytes # (Auto) 2.54 K/uL (1.2-3.4) Monocytes # (Auto) 0.51 K/uL (0.11-0.59) Eosinophils # (Auto) 0.35 K/uL (0-0.5) Basophils # (Auto) 0.04 K/uL (0-0.2) Immature Granulocyte # (Auto) 0.02 K/uL (0.00-0.02) Total Bilirubin 0.3 mg/dl (0.2-1) Aspartate Amino Transf (AST/SGOT) 12 U/L (15-37) Alanine Aminotransferase (ALT/SGPT) 22 U/L (12-78) Alkaline Phosphatase 55 U/L (45-117) Troponin I < 0.015 ng/ml (0-0.045) Pro-B-Type Natriuretic Peptide 166 pg/ml (0-900) Total Protein 6.1 gm/dl (6.4-8.2) Albumin 3.2 gm/dl (3.4-5.0) Globulin 2.9 gm/dl (2.5-4.0) Albumin/Globulin Ratio 1.1 (0.9-2) Laboratory results per my review. Medications Administered Medications (Trade) Dose Ordered Sig/Kaye Route Start Time Stop Time Status Last Admin Dose Admin Albuterol/ Ipratropium (Duoneb) 12 ml ONE ONCE INH 09/13/16 14:00 09/13/16 14:01 DC 09/13/16 14:00 12 ML Methylprednisolone Sodium Succinate (Solu-Medrol IV) 125 mg NOW STAT IV 09/13/16 13:56 09/13/16 13:58 DC 09/13/16 16:35 125 MG Morphine Sulfate (MoRPHine SULFATE INJ) 4 mg NOW STAT IV 09/13/16 16:07 09/13/16 16:09 DC 09/13/16 16:44 4 MG Acetaminophen/ Hydrocodone Bitart ([place]field 5/325 Tab) 1 tab Q4H PRN PO 09/13/16 18:30 09/13/16 21:46 DC 09/13/16 20:12 1 TAB ECG Indication: SOB/dyspnea Rate (beats per minute): 63 Rhythm: sinus rhythm Findings: no acute ischemic change, other (normal axis, normal intervals, low voltage throughout) ED Course 1346: The patient was evaluated in room B4b. A complete history and physical exam was performed. 1356: Solu-Medrol 125 mg IV. 1400: DuoNeb 12 ml INH. 1607: Morphine Sulfate 4 mg IV. 1623: The patient has increased bilateral wheezing after the first nebulizer. 1645: DuoNeb 12 ml INH. (second neb) 1735: The patient has not received a second neb yet. She stills sounds tight and has expiratory wheezing bilaterally. She desaturates to 88 on RA. 1746: Discussed the case with Sury Vuong PA-C, [facility] Hospitalist. The patient will be evaluated. Medical Decision Differential diagnosis: Etiologies such as infections, reactive airway disease, pneumonia, pneumothorax, COPD, CHF, cardiac ischemia, pulmonary embolism, musculoskeletal, gastrointestinal, as well as others were entertained. Patient's history and presentation consistent with asthma exacerbation, no evidence of acute infectious process, no evidence of ACS, CHF, no risk factors for PE other than age. Patient responded well to nebulizer treatments, however required to hour-long treatments. Patient was given steroids. Did not require BiPAP or intubation. Patient admitted due to persistent respiratory symptoms as well as mild hypoxia noted between neb treatments to 88%. Patient well known to hospitalist service as discussed presentation. I did not advise any additional medications at time of admission. Did not feel patient warranted antibiotics. Doubt bacteremia/sepsis. Patient with chronic anemia, H&H today is consistent with prior. Consults Time Called: 1739 Consulting Physician: Sury Vuong PA-C, [facility] Hospitalist. Returned Call: [phone] The patient will be evaluated. Impression Primary Impression: Asthma exacerbation Scribe Attestation The scribe's documentation has been prepared under my direction and personally reviewed by me in its entirety. I confirm that the note above accurately reflects all work, treatment, procedures, and medical decision making performed by me. Departure Information Dispostion Being Evaluated By Hospitalist Referrals No Doctor, Assigned (PCP) Patient Instructions My [facility]
[2016-09-13] MEDS ORDERED: ALBUT/IPRATROP 3MG/0.5MG NEB 3 ML VIAL INH ONE (14:00)
--- NOTE | 2016-09-13 14:17 | DIAGNOSTIC IMAGING REPORT ---
CHEST ONE VIEW PORTABLE CLINICAL HISTORY: sob dyspnea COMPARISON STUDY: 07/15/2016 FINDINGS: Central catheter remains within the superior vena cava at the juncture with the right atrium. Lungs are clear. Diaphragms smooth. IMPRESSION: No acute process. Electronically signed by: Vivek Sanders M.D. 09/13/2016 2:16 PM Dictated Date/Time: 09/13/2016 2:15 PM
[2016-09-13] MEDS ORDERED: MoRPHine SULFATE 4 MG/ML 1 ML CARP\\VIAL IV STA (16:07)
[2016-09-13] MEDS: ALBUT/IPRATROP 3MG/0.5MG NEB 3 ML VIAL INH ONE (16:45)
[2016-09-13 17:09] LABS: BASO % 0.4 %; BASO ABS # 0.04 K/uL (0-0.2); COMPLETE YES; EOS % 3.9 %; HEMATOCRIT 32.2 % (37-47); IG% 0.2 %; LYMPH % 28.3 %; LYMPH ABS # 2.54 K/uL (1.2-3.4); MEAN CELL VOLUME 76.7 fL (80-100); MEAN CORPUSCULAR HEMOGLOBIN 21.7 pg (25-34); MEAN CORPUSCULAR HGB CONC 28.3 g/dl (32-36); MEAN PLATELET VOLUME 10.9 fL (7.4-10.4); MONO % 5.7 %; NEUT % 61.5 %; PLATELET COUNT 217 K/uL (130-400); WHITE BLOOD COUNT 8.98 K/uL (4.8-10.8)
[2016-09-13 17:16] LABS: ALT/SGPT 22 U/L (12-78); AST/SGOT 12 U/L (15-37); BLOOD UREA NITROGEN 11 mg/dl (7-18); BUN/CREATININE RATIO 17.7 (10-20); CALCIUM 8.7 mg/dl (8.5-10.1); CARBON DIOXIDE 29 mmol/L (21-32); CHLORIDE 107 mmol/L (98-107); CREATININE 0.62 mg/dl (0.60-1.20); GLUCOSE 107 mg/dl (70-99); SODIUM 144 mmol/L (136-145)
[2016-09-13 17:22] LABS: ALB/GLOB RATIO 1.1 (0.9-2); ALKALINE PHOSPHATASE 55 U/L (45-117)
[2016-09-13 18:01] VITALS: PULSE 73; O2SAT 98
[2016-09-13] MEDS ORDERED: ONDANSETRON INJ 2 MG/ML 2 ML VIAL IV PRN (18:30)
[2016-09-13] MEDS ORDERED: ALUMINUM/MAGNESIUM/SIMETH (MAALOX MAX) 30 ML UDC PO PRN (18:30)
[2016-09-13] MEDS ORDERED: HYDROCODONE/ACETAMOPHEN 5/325MG TAB PO PRN (18:30)
[2016-09-13] MEDS ORDERED: MAGNESIUM HYDROXIDE SUSP 30 ML UDC PO PRN (18:30)
[2016-09-13] MEDS ORDERED: ACETAMINOPHEN 325 MG TAB PO PRN (18:30)
--- NOTE | 2016-09-13 18:42 | History and Physical ---
History & Physical Date & Time of Service: September 13, 2016 at 18:33 Chief Complaint: Asthma Primary Care Physician: Petra Kelly History of Present Illness Source: patient, clinic records, hospital records This is a 55 year old female with a PMH of asthma with O2 as needed, depression , chronic back pain on chronic narcotics, XIAO on CPAP presents with worsening shortness of breath x 2 days. States that she was here two months prior with similar symptoms - she stopped taking all of her asthma medications, including symbicort and spiriva and the only medication she took was prednisone 10mg daily. She felt her shortness of breath come on yesterday, and she heard audible wheezing. No chest pain, no cough. No fevers/chills; good PO intake, with no nausea/vomiting. She presented to the ER, received IV solu-medrol, felt better - but her O2 sats were dropping on exertion to ~ 87-88%, so it was decided she would be admitted. 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 (13) Microscopic hematuria Permanent Comment: evaluated by Urology; no significant path per patient Status: Chronic (14) Osteoporosis Status: Chronic (15) Sleep apnea Status: Chronic (16) Vertebral fracture, closed Status: Chronic Surgical Problems: (1) H/O sinus surgery Status: Chronic (2) History of carpal tunnel surgery Status: Chronic (3) S/P cardiac cath Status: Chronic (4) S/P herniorrhaphy Status: Chronic (5) Status post appendectomy Status: Chronic (6) Status post hernia repair Status: Chronic (7) Status post partial colectomy Status: Chronic (8) Status post thermoplasty Status: Chronic (9) Status post thermoplasty Status: Chronic Family History FH: heart disease FATHER FH: sleep apnea MOTHER FHx: cancer FHx: gallbladder disease Hypertension MOTHER Kidney disease MOTHER Social History Smoking Status: Former Smoker Immunizations History of Influenza Vaccine: Yes Influenza Vaccine Date: Jan 25, 2016 History of Tetanus Vaccine?: Yes Tetanus Immunization Date: Aug 16, 2007 History of Pneumococcal: Yes Pneumococcal Date: Jan 02, 2016 Allergies Coded Allergies: Aspirin (Verified Allergy, Intermediate, HIVES, 09/13/16) Ibuprofen (Verified Allergy, Intermediate, HIVES, 09/13/16) Levofloxacin (Verified Allergy, Intermediate, HIVES, 09/13/16) Iodinated Diagnostic Agents (Verified Allergy, Unknown, HIVES, 09/13/16) Pregabalin (Verified Adverse Reaction, Intermediate, SEVERE DEPRESSION, 09/13/16) Zolpidem (Verified Adverse Reaction, Intermediate, HALLUCINATIONS, 09/13/16) Gabapentin (Verified Adverse Reaction, Mild, GOOFY THOUGHTS, 09/13/16) Home Medications Scheduled Alendronate Sodium (Fosamax), 70 MG PO WK Bromfenac Sodium (Ophth) (Bromfenac), 1 DROPS OPR HS Cholecalciferol (Vitamin D), 1,000 UNIT PO BID Citalopram Hydrobromide (Celexa), 40 MG PO QAM Cyanocobalamin (Vitamin B-12), 1,000 MCG PO QAM Docusate Sodium (Colace), 200 MG PO HS Furosemide (Furosemide), 40 MG PO QAM Immune Globulin (Human) Iv (Privigen), Unknown Dose IV MONTHLY Omeprazole (Prilosec), 20 MG PO BID Oxygen (Oxygen), 2 LITERS NA PRN Potassium Chloride (Potassium Chloride Er), 10 MEQ PO BID Prednisolone Acetate (Ophth) (Omnipred), 1 DROPS OPR TID Prednisone Tab (Prednisone), 10 MG PO QAM Scheduled PRN Albuterol Hfa (Ventolin Hfa), 2-4 PUFFS INH Q6H PRN for SOB/Wheezing Epinephrine (Epipen 2-Deshawn), 0.3 MG IM UD PRN for ALLERGIC REACTION Glimepiride (Glimepiride), 1 TAB PO DAILY PRN for glucose > 110 Hydrocodone/Acetaminophen 5MG/325MG (Emerson 5MG/325MG), 1-2 TABS PO Q4-6H PRN for Pain Ipratropium-Albuterol (Duoneb), 1 TREATMENT INH Q4H PRN for SOB/Wheezing Lorazepam (Ativan), 1 MG PO QAM PRN for Anxiety Lorazepam (Lorazepam), 2 MG PO HS PRN for Anxiety Polyethylene Glycol 3350 (Miralax), 17 GM PO DAILY PRN for Constipation Review of Systems Constitutional: No chills, No fever, No weakness Respiratory: + dyspnea on exertion, + shortness of breath, + wheezing, No cough , No dyspnea at rest, No hemoptysis, No sputum Cardiovascular: No chest pain, No edema, No palpitations Abdomen: No constipation, No diarrhea, No nausea, No pain, No vomiting Musculoskeletal: + joint pain (chronic back pain) Genitourinary - Female: No dysuria, No urinary frequency Neurologic: No balance problems, No vertigo Psychiatric: No depression symptoms (controlled with medications) Hematologic / Lymphatic: No abnormal bleeding/bruising Integumentary: No rash Allergic / Immunologic: No environmental allergies, No food allergies, No pet sensitivities, No seasonal allergies Physical Exam Vital Signs Date Time Temp Pulse Resp B/P Pulse Ox O2 Delivery O2 Flow Rate FiO2 09/13/16 18:01 73 12 98 Nasal Cannula 2.0 09/13/16 16:40 96 Nasal Cannula 2.0 09/13/16 16:27 89 15 88 Room Air 09/13/16 15:57 85 16 99 Mask Nebulizer 09/13/16 15:31 82 24 127/76 98 Mask Nebulizer 09/13/16 14:57 64 17 100 Mask Nebulizer 09/13/16 14:27 61 11 95 Mask Nebulizer 09/13/16 13:57 67 18 96 Mask Nebulizer 09/13/16 13:49 67 09/13/16 13:34 36.7 76 16 126/72 93 Room Air General Appearance: no apparent distress Head: normocephalic, atraumatic Eyes: normal inspection ENT: hearing grossly normal Respiratory/Chest: no respiratory distress, no accessory muscle use, + wheezing (end expiratory wheezing) Cardiovascular: regular rate, rhythm, no edema, no murmur Abdomen/GI: normal bowel sounds, non tender, soft Extremities/Musculoskelatal: no calf tenderness, normal capillary refill, no pedal edema Neurologic/Psych: no motor/sensory deficits, alert, normal mood/affect Skin: normal color Lymphatic: no adenopathy Diagnostics Laboratory Results Results Past 24 Hours Test 09/13/16 16:35 Range/Units White Blood Count 8.98 4.8-10.8 K/uL Red Blood Count 4.20 4.2-5.4 M/uL Hemoglobin 9.1 12.0-16.0 g/dL Hematocrit 32.2 37-47 % Mean Corpuscular Volume 76.7 80-100 fL Mean Corpuscular Hemoglobin 21.7 25-34 pg Mean Corpuscular Hemoglobin Concent 28.3 32-36 g/dl Platelet Count 217 130-400 K/uL Mean Platelet Volume 10.9 7.4-10.4 fL Neutrophils (%) (Auto) 61.5 % Lymphocytes (%) (Auto) 28.3 % Monocytes (%) (Auto) 5.7 % Eosinophils (%) (Auto) 3.9 % Basophils (%) (Auto) 0.4 % Neutrophils # (Auto) 5.52 1.4-6.5 K/uL Lymphocytes # (Auto) 2.54 1.2-3.4 K/uL Monocytes # (Auto) 0.51 0.11-0.59 K/uL Eosinophils # (Auto) 0.35 0-0.5 K/uL Basophils # (Auto) 0.04 0-0.2 K/uL RDW Standard Deviation 50.7 36.4-46.3 fL RDW Coefficient of Variation 18.0 11.5-14.5 % Immature Granulocyte % (Auto) 0.2 % Immature Granulocyte # (Auto) 0.02 0.00-0.02 K/uL Sodium Level 144 136-145 mmol/L Potassium Level 3.0 3.5-5.1 mmol/L Chloride Level 107 98-107 mmol/L Carbon Dioxide Level 29 21-32 mmol/L Anion Gap 8.0 3-11 mmol/L Blood Urea Nitrogen 11 7-18 mg/dl Creatinine 0.62 0.60-1.20 mg/dl Est Creatinine Clear Calc Drug Dose 114.8 ml/min Estimated GFR () 116.8 Estimated GFR (Non- 100.8 BUN/Creatinine Ratio 17.7 10-20 Random Glucose 107 70-99 mg/dl Calcium Level 8.7 8.5-10.1 mg/dl Total Bilirubin 0.3 0.2-1 mg/dl Aspartate Amino Transf (AST/SGOT) 12 15-37 U/L Alanine Aminotransferase (ALT/SGPT) 22 12-78 U/L Alkaline Phosphatase 55 45-117 U/L Troponin I < 0.015 0-0.045 ng/ml Pro-B-Type Natriuretic Peptide 166 0-900 pg/ml Total Protein 6.1 6.4-8.2 gm/dl Albumin 3.2 3.4-5.0 gm/dl Globulin 2.9 2.5-4.0 gm/dl Albumin/Globulin Ratio 1.1 0.9-2 Diagnostic Radiology CHEST ONE VIEW PORTABLE CLINICAL HISTORY: sob dyspnea COMPARISON STUDY: 07/15/2016 FINDINGS: Central catheter remains within the superior vena cava at the juncture with the right atrium. Lungs are clear. Diaphragms smooth. IMPRESSION: No acute process. EKG NSR @ ~70bpm Impression Assessment and Plan This is a 55 year old female with a PMH of asthma with O2 as needed, depression , chronic back pain on chronic narcotics, XIAO on CPAP presents with worsening shortness of breath x 2 days. Acute Asthma Exacerbation patient presented with shortness of breath/wheezing non-compliant with home inhalers and medications received IV Solu-medrol in the ER with good response will start IV solumedrol 40mg q12 nebulizers around the clock and PRN will hold off on antibiotic use XIAO to use CPAP tonight Chronic Back Pain continue home medication of Emerson 5mg q4PRN Depression continue home medications DVT ppx subq heparin FULL CODE VTE Prophylaxis VTE Risk Assessment Done? Y/N: Yes Risk Level: Moderate
[2016-09-13] MEDS ORDERED: ALBUT/IPRATROP 3MG/0.5MG NEB 3 ML VIAL INH PRN (18:45)
[2016-09-13 20:00] VITALS: BP 127/71; PULSE 96; TEMP 36.9; O2SAT 94
[2016-09-13] MEDS: ALBUT/IPRATROP 3MG/0.5MG NEB 3 ML VIAL INH SCH (20:00)
[2016-09-13 21:20] LABS: PROTHROMBIN TIME (PATIENT) 10.4 SECONDS (9.0-12.0)
[2016-09-13 21:26] VITALS: Ht 165.1 cm; Wt 94.0 kg
[2016-09-13] MEDS ORDERED: INSULIN GLARGINE SOLOSTAR 100 UNITS/ML 3 ML PEN SC ONE (21:43)
[2016-09-13] MEDS: PANTOprazole SOD 40 MG TAB PO SCH (22:01)
[2016-09-13] MEDS: HEPARIN SOD 5000 UNIT/0.5 ML CARP SQ SCH (22:08)
[2016-09-13] MEDS: POTASSIUM CHLR 10 MEQ / WTR 10 MEQ in PREMIXED WATER 100 ML IV SCH ×3 (22:09→23:44)
[2016-09-13] MEDS: INSULIN ASPART 100 UNITS/ML 3 ML PEN SC SCH (22:11)
[2016-09-13 22:40] VITALS: BP 127/71; PULSE 96; TEMP 36.9; O2SAT 94
[2016-09-13] MEDS: HYDROCODONE/ACETAMOPHEN 5/325MG TAB PO PRN (23:33)
[2016-09-13 23:41] VITALS: PULSE 62; O2SAT 97
[2016-09-14] VITALS (8 sets, daily range): BP systolic 116–136; BP diastolic 70–78; PULSE 61–78; TEMP 36.6–37; O2SAT 94–98
[2016-09-14] MEDS: POTASSIUM CHLR 10 MEQ / WTR 10 MEQ in PREMIXED WATER 100 ML IV SCH (00:39)
[2016-09-14] MEDS ORDERED: LORAZEPAM 1 MG TAB PO PRN (02:00)
[2016-09-14] MEDS: LORAZEPAM 1 MG TAB PO PRN ×2 (02:02→21:32)
[2016-09-14] MEDS: METHYLPREDNISOLONE IV 40 MG in SYRINGE 0 ML IV SCH ×2 (05:15→18:11)
[2016-09-14] MEDS: ALBUT/IPRATROP 3MG/0.5MG NEB 3 ML VIAL INH SCH ×4 (07:12→19:20)
[2016-09-14] MEDS: PANTOprazole SOD 40 MG TAB PO SCH ×2 (08:02→21:33)
[2016-09-14] MEDS: CITALOPRAM 40 MG TAB PO SCH (08:02)
[2016-09-14] MEDS: FUROSEMIDE 40 MG TAB PO SCH (08:03)
[2016-09-14] MEDS: HYDROCODONE/ACETAMOPHEN 5/325MG TAB PO PRN ×2 (08:03→16:14)
[2016-09-14] MEDS: INSULIN GLARGINE SOLOSTAR 100 UNITS/ML 3 ML PEN SC SCH ×2 (08:42→22:08)
[2016-09-14] MEDS: INSULIN ASPART 100 UNITS/ML 3 ML PEN SC SCH ×4 (08:42→21:10)
[2016-09-14 09:34] LABS: HEMATOCRIT 32.3 % (37-47); MEAN CELL VOLUME 76.7 fL (80-100); MEAN CORPUSCULAR HEMOGLOBIN 22.1 pg (25-34); MEAN CORPUSCULAR HGB CONC 28.8 g/dl (32-36); MEAN PLATELET VOLUME 11.3 fL (7.4-10.4); PLATELET COUNT 264 K/uL (130-400); RED BLOOD COUNT 4.21 M/uL (4.2-5.4); WHITE BLOOD COUNT 11.04 K/uL (4.8-10.8)
[2016-09-14] MEDS: HEPARIN SOD 5000 UNIT/0.5 ML CARP SQ SCH ×2 (10:00→22:07)
[2016-09-14 10:12] LABS: BUN/CREATININE RATIO 14.2 (10-20); CALCIUM 9.2 mg/dl (8.5-10.1); CREATININE 0.85 mg/dl (0.60-1.20); MAGNESIUM 1.9 mg/dl (1.8-2.4); POTASSIUM 4.1 mmol/L (3.5-5.1)
[2016-09-14] MEDS: HYDROmorphone INJ 1 MG/ML SYR IV PRN ×2 (13:26→21:31)
--- NOTE | 2016-09-14 18:40 | Progress Note ---
Medicine Progress Note Date & Time of Visit: September 14, 2016 at ~ 12:00 . Subjective Admitted last evening with exacerbation of asthma. Persistent nonproductive cough. Persistent wheezing and SOB. No anginal symptoms. No nausea or vomiting. Chronic back pain with right sciatica, aggravated by coughing. . Objective Last 8 Hrs Date Time Temp Pulse Resp B/P Pulse Ox O2 Delivery O2 Flow Rate FiO2 09/14/16 16:10 96 Nasal Cannula 2.0 09/14/16 14:56 61 14 96 Nasal Cannula 2.0 09/14/16 14:48 36.8 68 18 116/78 96 Nasal Cannula 2.0 09/14/16 11:32 64 14 95 Nasal Cannula 2.0 Physical Exam: General- no acute distress Neck- no JVD Lungs- diffuse moderate wheezing Heart- RRR Abdomen- + BS, soft, nontender Extremities- no pretibial edema or calf tenderness Neuro- alert . Laboratory Results: Last 24 Hours Test 09/13/16 19:35 09/13/16 21:37 09/14/16 07:31 09/14/16 09:00 Prothrombin Time 10.4 SECONDS Prothromb Time International Ratio 1.0 Bedside Glucose 288 mg/dl 142 mg/dl White Blood Count 11.04 K/uL Red Blood Count 4.21 M/uL Hemoglobin 9.3 g/dL Hematocrit 32.3 % Mean Corpuscular Volume 76.7 fL Mean Corpuscular Hemoglobin 22.1 pg Mean Corpuscular Hemoglobin Concent 28.8 g/dl RDW Standard Deviation 50.6 fL RDW Coefficient of Variation 17.8 % Platelet Count 264 K/uL Mean Platelet Volume 11.3 fL Sodium Level 140 mmol/L Potassium Level 4.1 mmol/L Chloride Level 105 mmol/L Carbon Dioxide Level 28 mmol/L Anion Gap 7.0 mmol/L Blood Urea Nitrogen 12 mg/dl Creatinine 0.85 mg/dl Est Creatinine Clear Calc Drug Dose 83.8 ml/min Estimated GFR () 88.8 Estimated GFR (Non- 76.6 BUN/Creatinine Ratio 14.2 Random Glucose 192 mg/dl Calcium Level 9.2 mg/dl Magnesium Level 1.9 mg/dl Test 09/14/16 11:26 09/14/16 16:39 Bedside Glucose 145 mg/dl 124 mg/dl Assessment & Plan EXACERBATION ASTHMA No infiltrates on chest x-ray. No apparent indication for antibiotics at this time. Continue steroids and nebs. SLEEP APNEA Continue CPAP. CHRONIC BACK PAIN Aggravated by coughing. Continue analgesics. STEROID-INDUCED HYPERGLYCEMIA Insulin coverage per protocol. VTE PROPHYLAXIS SQ heparin ordered, but patient refused. SCD's. Ambulate. DISPOSITION Expected discharge to home. Primary Care follow-up with CRISTOPHER Noguera. Pulmonary follow-up with Semaj Birch PA-C. . Current Inpatient Medications: Current Inpatient Medications Medications (Trade) Dose Ordered Sig/Kaye Route Start Time Stop Time Status Last Admin Dose Admin Acetaminophen (Tylenol Tab) 650 mg Q4H PRN PO 09/13/16 18:30 10/13/16 18:29 Al Hydrox/Mg Hydrox/Simethicone (Maalox Max Susp) 15 ml Q4H PRN PO 09/13/16 18:30 10/13/16 18:29 Magnesium Hydroxide (Milk Of Magnesia Susp) 30 ml Q6H PRN PO 09/13/16 18:30 10/13/16 18:29 Polyethylene (Miralax Powder Packet) 17 gm DAILY PRN PO 09/13/16 18:30 10/13/16 18:29 Ondansetron HCl (Zofran Inj) 4 mg Q6H PRN IV 09/13/16 18:30 10/13/16 18:29 Heparin Sodium (Porcine) (Heparin Sq 5000 Unit/0.5ml) 5,000 unit Q12H SQ 09/13/16 22:00 10/13/16 21:59 09/13/16 22:08 5,000 UNIT Citalopram Hydrobromide (celeXA TAB) 40 mg QAM PO 09/14/16 08:00 10/14/16 08:59 09/14/16 08:02 40 MG Furosemide (Lasix Tab) 40 mg QAM PO 09/14/16 08:00 10/14/16 08:59 09/14/16 08:03 40 MG Pantoprazole Sodium 40 mg 40 mg BID PO 09/13/16 20:00 10/13/16 20:59 09/14/16 08:02 40 MG Methylprednisolone Sodium Succinate/ Syringe (Solu-Medrol IV/ Syringe) 0.64 ml @ 1.5 mls/min Q12@0400,1600 IV 09/14/16 04:00 10/14/16 03:59 09/14/16 18:11 1.5 MLS/MIN Albuterol/ Ipratropium (Duoneb) 3 ml QIDR INH 09/13/16 20:00 10/13/16 19:59 09/14/16 14:55 3 ML Albuterol/ Ipratropium (Duoneb) 3 ml Q2H PRN INH 09/13/16 18:45 10/13/16 18:44 Acetaminophen/ Hydrocodone Bitart ([place] 5/325 Tab) 2 tab Q6H PRN PO 09/13/16 21:43 09/27/16 21:42 09/14/16 16:14 2 TAB Insulin Aspart (novoLOG ASPART) SLIDING SCALE G... ACHS SC 09/13/16 22:00 10/13/16 21:59 09/14/16 18:19 2 UNITS Insulin Glargine (Lantus Solostar Pen) 6 unit BID SC 09/14/16 08:00 10/14/16 07:59 09/14/16 08:42 6 UNIT Heparin Sodium (Porcine) (Heparin 100 Unit/ml 5ml Flush) 5 ml PRN PRN IV 09/14/16 00:15 10/14/16 00:14 09/14/16 18:11 5 ML Lorazepam (Ativan Tab) 2 mg HS PRN PO 09/14/16 02:00 10/14/16 01:59 09/14/16 02:02 2 MG Lorazepam (Ativan Tab) 1 mg QAM PRN PO 09/14/16 02:00 10/14/16 01:59 Hydromorphone HCl (Dilaudid Inj) 0.5 mg Q6H PRN IV 09/14/16 12:00 09/28/16 11:59 09/14/16 13:26 0.5 MG
[2016-09-15] VITALS (8 sets, daily range): BP systolic 97–117; BP diastolic 62–74; PULSE 53–72; TEMP 36.9–37.2; O2SAT 92–97
[2016-09-15] MEDS: METHYLPREDNISOLONE IV 40 MG in SYRINGE 0 ML IV SCH (05:34)
[2016-09-15] MEDS: ALBUT/IPRATROP 3MG/0.5MG NEB 3 ML VIAL INH SCH ×4 (07:49→19:21)
[2016-09-15] MEDS: INSULIN GLARGINE SOLOSTAR 100 UNITS/ML 3 ML PEN SC SCH ×2 (08:00→20:34)
--- NOTE | 2016-09-15 09:09 | Progress Note ---
Medicine Progress Note Date & Time of Visit: September 15, 2016 at 07:50 . Subjective No problems last night. No fever. Cough, wheezing, SOB improved. No anginal symptoms. No nausea, vomiting, diarrhea. Persistent back pain. . Objective Last 8 Hrs Date Time Temp Pulse Resp B/P Pulse Ox O2 Delivery O2 Flow Rate FiO2 09/15/16 07:50 65 16 94 Nasal Cannula 2.0 09/15/16 06:47 36.9 53 16 97/62 97 BiPAP 2.0 Physical Exam: General- no distress Neck- no JVD Lungs- diffuse wheezing Heart- RRR Abdomen- + BS, soft, nontender Extremities- no pretibial edema or calf tenderness Neuro- alert . Laboratory Results: Last 24 Hours Test 09/14/16 11:26 09/14/16 16:39 09/14/16 20:06 09/15/16 07:39 Bedside Glucose 145 mg/dl 124 mg/dl 167 mg/dl 116 mg/dl Assessment & Plan EXACERBATION ASTHMA No infiltrates on chest x-ray. No apparent indication for antibiotics at this time. Taper steroids. Continue nebs. SLEEP APNEA Continue CPAP. CHRONIC BACK PAIN Aggravated by coughing. Continue analgesics. Ambulate. STEROID-INDUCED HYPERGLYCEMIA FBS 116. Insulin coverage per protocol. VTE PROPHYLAXIS SQ heparin ordered, but patient refused. SCD's. Ambulate. DISPOSITION Expected discharge to home. Primary Care follow-up with CRISTOPHER Noguera. Pulmonary follow-up with Semaj Birch PA-C. . Current Inpatient Medications: Current Inpatient Medications Medications (Trade) Dose Ordered Sig/Kaye Route Start Time Stop Time Status Last Admin Dose Admin Acetaminophen (Tylenol Tab) 650 mg Q4H PRN PO 09/13/16 18:30 10/13/16 18:29 Al Hydrox/Mg Hydrox/Simethicone (Maalox Max Susp) 15 ml Q4H PRN PO 09/13/16 18:30 10/13/16 18:29 Magnesium Hydroxide (Milk Of Magnesia Susp) 30 ml Q6H PRN PO 09/13/16 18:30 10/13/16 18:29 Polyethylene (Miralax Powder Packet) 17 gm DAILY PRN PO 09/13/16 18:30 10/13/16 18:29 Ondansetron HCl (Zofran Inj) 4 mg Q6H PRN IV 09/13/16 18:30 10/13/16 18:29 Heparin Sodium (Porcine) (Heparin Sq 5000 Unit/0.5ml) 5,000 unit Q12H SQ 09/13/16 22:00 10/13/16 21:59 09/14/16 22:07 5,000 UNIT Citalopram Hydrobromide (celeXA TAB) 40 mg QAM PO 09/14/16 08:00 10/14/16 08:59 09/14/16 08:02 40 MG Furosemide (Lasix Tab) 40 mg QAM PO 09/14/16 08:00 10/14/16 08:59 09/14/16 08:03 40 MG Pantoprazole Sodium 40 mg 40 mg BID PO 09/13/16 20:00 10/13/16 20:59 09/14/16 21:33 40 MG Methylprednisolone Sodium Succinate/ Syringe (Solu-Medrol IV/ Syringe) 0.64 ml @ 1.5 mls/min Q12@0400,1600 IV 09/14/16 04:00 10/14/16 03:59 09/15/16 05:34 1.5 MLS/MIN Albuterol/ Ipratropium (Duoneb) 3 ml QIDR INH 09/13/16 20:00 10/13/16 19:59 09/15/16 07:49 3 ML Albuterol/ Ipratropium (Duoneb) 3 ml Q2H PRN INH 09/13/16 18:45 10/13/16 18:44 Acetaminophen/ Hydrocodone Bitart ([place] 5/325 Tab) 2 tab Q6H PRN PO 09/13/16 21:43 09/27/16 21:42 09/14/16 16:14 2 TAB Insulin Aspart (novoLOG ASPART) SLIDING SCALE G... ACHS SC 09/13/16 22:00 10/13/16 21:59 09/14/16 18:19 2 UNITS Insulin Glargine (Lantus Solostar Pen) 6 unit BID SC 09/14/16 08:00 10/14/16 07:59 09/14/16 22:08 6 UNIT Heparin Sodium (Porcine) (Heparin 100 Unit/ml 5ml Flush) 5 ml PRN PRN IV 09/14/16 00:15 10/14/16 00:14 09/15/16 09:04 5 ML Lorazepam (Ativan Tab) 2 mg HS PRN PO 09/14/16 02:00 10/14/16 01:59 09/14/16 21:32 2 MG Lorazepam (Ativan Tab) 1 mg QAM PRN PO 09/14/16 02:00 10/14/16 01:59 Hydromorphone HCl (Dilaudid Inj) 0.5 mg Q6H PRN IV 09/14/16 12:00 09/28/16 11:59 09/14/16 21:31 0.5 MG
[2016-09-15] MEDS: CITALOPRAM 40 MG TAB PO SCH (09:19)
[2016-09-15] MEDS: HYDROCODONE/ACETAMOPHEN 5/325MG TAB PO PRN ×2 (09:19→16:53)
[2016-09-15] MEDS: PANTOprazole SOD 40 MG TAB PO SCH ×2 (09:19→20:27)
[2016-09-15] MEDS: FUROSEMIDE 40 MG TAB PO SCH (09:19)
[2016-09-15] MEDS: INSULIN ASPART 100 UNITS/ML 3 ML PEN SC SCH ×4 (09:22→20:28)
[2016-09-15] MEDS: HEPARIN SOD 5000 UNIT/0.5 ML CARP SQ SCH ×2 (09:22→20:26)
[2016-09-15] MEDS: HYDROmorphone INJ 1 MG/ML SYR IV PRN ×2 (11:58→20:35)
[2016-09-15] MEDS ORDERED: METHYLPREDNISOLONE IV 20 MG in SYRINGE 0 ML IV ONE (16:00)
[2016-09-15] MEDS: POLYETHYLENE (MIRALAX) 17 GM PACK PO PRN (18:24)
[2016-09-15] MEDS: LORAZEPAM 1 MG TAB PO PRN (21:40)
[2016-09-16] MEDS: INSULIN ASPART 100 UNITS/ML 3 ML PEN SC SCH ×2 (06:30→11:00)
[2016-09-16 06:46] VITALS: BP 99/66; PULSE 55; TEMP 36.6; O2SAT 96
[2016-09-16 07:32] VITALS: PULSE 64; O2SAT 97
[2016-09-16] MEDS: ALBUT/IPRATROP 3MG/0.5MG NEB 3 ML VIAL INH SCH ×2 (07:32→11:23)
[2016-09-16] MEDS: PANTOprazole SOD 40 MG TAB PO SCH (07:35)
[2016-09-16] MEDS: CITALOPRAM 40 MG TAB PO SCH (07:36)
[2016-09-16] MEDS: FUROSEMIDE 40 MG TAB PO SCH (07:36)
[2016-09-16] MEDS: HEPARIN SOD 5000 UNIT/0.5 ML CARP SQ SCH (07:36)
[2016-09-16] MEDS: INSULIN GLARGINE SOLOSTAR 100 UNITS/ML 3 ML PEN SC SCH (08:00)
[2016-09-16 08:20] LABS: HEMATOCRIT 34.7 % (37-47); MEAN CORPUSCULAR HEMOGLOBIN 21.3 pg (25-34); MEAN CORPUSCULAR HGB CONC 27.4 g/dl (32-36); MEAN PLATELET VOLUME 10.5 fL (7.4-10.4); PLATELET COUNT 293 K/uL (130-400); RED BLOOD COUNT 4.45 M/uL (4.2-5.4); WHITE BLOOD COUNT 13.45 K/uL (4.8-10.8)
[2016-09-16] MEDS: HYDROCODONE/ACETAMOPHEN 5/325MG TAB PO PRN (12:24)
--- NOTE | 2016-09-16 12:29 | Progress Note ---
Medicine Progress Note Date & Time of Visit: September 16, 2016 at 11:30 . Subjective No fever. Cough resolved; wheezing and SOB improved. No chest pain. No nausea, vomiting. Back pain & sciatica improved. Ambulating. . Objective Last 8 Hrs Date Time Temp Pulse Resp B/P Pulse Ox O2 Delivery O2 Flow Rate FiO2 09/16/16 08:00 CPAP 09/16/16 07:32 64 12 97 Nasal Cannula 2.0 09/16/16 07:32 64 97 09/16/16 06:46 36.6 55 16 99/66 96 2.0 Physical Exam: General- no distress Neck- no JVD Lungs- minimal wheezing Heart- RRR Abdomen- + BS, soft, nontender Extremities- no pretibial edema or calf tenderness Neuro- alert . Laboratory Results: Last 24 Hours Test 09/15/16 16:41 09/15/16 20:11 09/16/16 07:42 09/16/16 07:45 Bedside Glucose 130 mg/dl 155 mg/dl 99 mg/dl White Blood Count 13.45 K/uL Red Blood Count 4.45 M/uL Hemoglobin 9.5 g/dL Hematocrit 34.7 % Mean Corpuscular Volume 78.0 fL Mean Corpuscular Hemoglobin 21.3 pg Mean Corpuscular Hemoglobin Concent 27.4 g/dl RDW Standard Deviation 52.4 fL RDW Coefficient of Variation 18.3 % Platelet Count 293 K/uL Mean Platelet Volume 10.5 fL Assessment & Plan EXACERBATION ASTHMA No infiltrates on chest x-ray. No indication for antibiotics. Received IV methylprednisolone and nebs. Transitioned to prednisone 40 mg daily. Discharge on prednisone 40 mg PO daily x 5 days, then 30 mg PO daily until seen in Pulmonary Clinic next week. SLEEP APNEA Continue CPAP. CHRONIC BACK PAIN Aggravated by coughing. Received analgesics with improvement. Ambulating. STEROID-INDUCED HYPERGLYCEMIA Received insulin coverage per protocol. VTE PROPHYLAXIS SQ heparin ordered, but patient refused. SCD's. Ambulate. DISPOSITION Discharge to home. Primary Care follow-up with CRISTOPHER Noguera. Pulmonary follow-up with Semaj Birch PA-C next week. . Current Inpatient Medications: Current Inpatient Medications Medications (Trade) Dose Ordered Sig/Kaye Route Start Time Stop Time Status Last Admin Dose Admin Acetaminophen (Tylenol Tab) 650 mg Q4H PRN PO 09/13/16 18:30 10/13/16 18:29 Al Hydrox/Mg Hydrox/Simethicone (Maalox Max Susp) 15 ml Q4H PRN PO 09/13/16 18:30 10/13/16 18:29 Magnesium Hydroxide (Milk Of Magnesia Susp) 30 ml Q6H PRN PO 09/13/16 18:30 10/13/16 18:29 Polyethylene (Miralax Powder Packet) 17 gm DAILY PRN PO 09/13/16 18:30 10/13/16 18:29 09/15/16 18:24 17 GM Ondansetron HCl (Zofran Inj) 4 mg Q6H PRN IV 09/13/16 18:30 10/13/16 18:29 Heparin Sodium (Porcine) (Heparin Sq 5000 Unit/0.5ml) 5,000 unit Q12H SQ 09/13/16 22:00 10/13/16 21:59 09/14/16 22:07 5,000 UNIT Citalopram Hydrobromide (celeXA TAB) 40 mg QAM PO 09/14/16 08:00 10/14/16 08:59 09/16/16 07:36 40 MG Furosemide (Lasix Tab) 40 mg QAM PO 09/14/16 08:00 10/14/16 08:59 09/15/16 09:19 40 MG Pantoprazole Sodium (Protonix Tab) 40 mg BID PO 09/13/16 20:00 10/13/16 20:59 09/16/16 07:35 40 MG Albuterol/ Ipratropium (Duoneb) 3 ml QIDR INH 09/13/16 20:00 10/13/16 19:59 09/16/16 07:32 3 ML Albuterol/ Ipratropium (Duoneb) 3 ml Q2H PRN INH 09/13/16 18:45 10/13/16 18:44 Acetaminophen/ Hydrocodone Bitart ([place] 5/325 Tab) 2 tab Q6H PRN PO 09/13/16 21:43 09/27/16 21:42 09/16/16 12:24 2 TAB Insulin Aspart (novoLOG ASPART) SLIDING SCALE G... ACHS SC 09/13/16 22:00 10/13/16 21:59 09/15/16 18:19 5 UNITS Insulin Glargine (Lantus Solostar Pen) 6 unit BID SC 09/14/16 08:00 10/14/16 07:59 09/15/16 20:34 6 UNIT Heparin Sodium (Porcine) (Heparin 100 Unit/ml 5ml Flush) 5 ml PRN PRN IV 09/14/16 00:15 10/14/16 00:14 09/16/16 08:40 5 ML Lorazepam (Ativan Tab) 2 mg HS PRN PO 09/14/16 02:00 10/14/16 01:59 09/15/16 21:40 2 MG Lorazepam (Ativan Tab) 1 mg QAM PRN PO 09/14/16 02:00 10/14/16 01:59 Hydromorphone HCl (Dilaudid Inj) 0.5 mg Q6H PRN IV 09/14/16 12:00 09/28/16 11:59 09/15/16 20:35 0.5 MG Prednisone (PredniSONE TAB) 40 mg DAILY PO 09/16/16 08:00 10/16/16 07:59 09/16/16 07:36 40 MG
--- NOTE | 2016-09-16 12:37 | Discharge Instructions ---
Discharge Instructions Date of Service September 16, 2016. Admission Reason for Admission: Asthma Exacerbation Discharge Discharge Diagnosis / Problem: asthma exacerbation Discharge Goals Goal(s): Improve function, Improve disease control Activity Recommendations Activity Limitations: resume your previous activity . Instructions / Follow-Up Instructions / Follow-Up APPOINTMENTS: FAMILY MEDICINE 10/31/2016 11:20 AM CRISTOPHER Santana PULMONARY MEDICINE 09/24/16 9:45 AM Semaj Birch PA-C INSTRUCTIONS: Prednisone dosing: Take 40 mg daily 09/17 - 09/20. Decrease dose to 30 mg daily starting 09/21. Further taper as instructed by Semaj Birch when you see him on 09/24. Seek medical attention if you have: * temperature above 101 * chest pain or trouble breathing * abdominal pain, nausea, vomiting * diarrhea, dark stools or bloody stools * any unanswered questions or concerns Call 911 if symptoms are severe. Call if you have any questions or problems. My cell # is [phone]. You can also reach a [facility] hospitalist on duty at [facility] 24 hours a day by calling [phone]. Please take good care of yourself. Benny Morrison . Current Hospital Diet Patient's current hospital diet: Regular Diet Discharge Diet Recommended Diet: AHA Diet (Heart Healthy) Pending Studies Studies pending at discharge: no Medical Emergencies . Who to Call and When: Medical Emergencies: If at any time you feel your situation is an emergency, please call 911 immediately. . Non-Emergent Contact Non-Emergency issues call your: Primary Care Provider, Operations Clerk . . "Provider Documentation" section prepared by Benny Morrison. . VTE Core Measure Inpt VTE Proph given/why not?: Unfractionated heparin SQ
--- NOTE | 2016-09-16 12:46 | Discharge Summary ---
Discharge Summary Date of Service September 16, 2016. Discharge Summary Admission Date: September 13, 2016 at 18:32 Discharge Date: September 16, 2016 Discharge Disposition: Home Principal Diagnosis: exacerbation of asthma . 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 (2) Anxiety Status: Chronic (3) Asthma Status: Chronic (4) Chronic back pain Status: Chronic (5) Depression Status: Chronic (6) Deterioration of spinal disc of lower back Status: Chronic (7) Dyslipidemia Status: Chronic (8) GERD (gastroesophageal reflux disease) Status: Chronic (9) H/O adrenal insufficiency Status: Chronic (10) History of colonic diverticulitis Status: Chronic (11) History of pulmonary embolism Status: Chronic (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 (13) Microscopic hematuria Permanent Comment: evaluated by Urology; no significant path per patient Status: Chronic (14) Osteoporosis Status: Chronic (15) Sleep apnea Status: Chronic (16) Vertebral fracture, closed Status: Chronic Surgical Problems: (1) H/O sinus surgery Status: Chronic (2) History of carpal tunnel surgery Status: Chronic (3) S/P cardiac cath Status: Chronic (4) S/P herniorrhaphy Status: Chronic (5) Status post appendectomy Status: Chronic (6) Status post hernia repair Status: Chronic (7) Status post partial colectomy Status: Chronic (8) Status post thermoplasty Status: Chronic . Procedures: IV meds . Medication Reconciliation Continued Medications: Albuterol Hfa (Ventolin Hfa) 200 Puffs/22308 Mcg Aers 2-4 PUFFS INH Q6H PRN for SOB/Wheezing Alendronate Sodium (Fosamax) 70 Mg Tab 70 MG PO WK, TAB TAKE THIS MEDICATION EVERY FRIDAY. Bromfenac Sodium (Ophth) (Bromfenac) 0.09 % Ashleigh 1 DROPS OPR HS Cholecalciferol (Vitamin D) 1,000 Unit Tab 1000 UNIT PO BID Citalopram Hydrobromide (Celexa) 40 Mg Tab 40 MG PO QAM Cyanocobalamin (Vitamin B-12) 1,000 Mcg Tab 1000 MCG PO QAM, TAB Docusate Sodium (Colace) 100 Mg Cap 200 MG PO HS, CAP Epinephrine (Epipen 2-Deshawn) 0.3 Mg Inj 0.3 MG IM UD PRN for ALLERGIC REACTION Furosemide (Furosemide) 40 Mg Tab 40 MG PO QAM Glimepiride (Glimepiride) 1 Mg Tab 1 TAB PO DAILY PRN for glucose > 110 Hydrocodone/Acetaminophen 5MG/325MG ([place] 5MG/325MG) Tab 1-2 TABS PO Q4-6H PRN for Pain, TAB Immune Globulin (Human) Iv (Privigen) 5 Gm/50 Ml Inj Unknown Dose IV MONTHLY Ipratropium-Albuterol (Duoneb) 3 Ml Nebu 1 TREATMENT INH Q4H PRN for SOB/Wheezing Lorazepam (Ativan) 1 Mg Tab 1 MG PO QAM PRN for Anxiety, TAB Lorazepam (Lorazepam) 1 Mg Tab 2 MG PO HS PRN for Anxiety Omeprazole (Prilosec) 20 Mg Cap 20 MG PO BID Oxygen (Oxygen) Gas 2 LITERS NA PRN Polyethylene Glycol 3350 (Miralax) 1 Pow Pow 17 GM PO DAILY PRN for Constipation, #255 GM Potassium Chloride (Potassium Chloride Er) 10 Meq Tab 10 MEQ PO BID Prednisolone Acetate (Ophth) (Omnipred) 1 % Deidra 1 DROPS OPR TID Prednisone Tab (Prednisone) 10 Mg Tab 10 MG PO QAM Please note new dose in discharge instructions. Admission Information HPI (per Admitting provider): This is a 55 year old female with a PMH of asthma with O2 as needed, depression , chronic back pain on chronic narcotics, XIAO on CPAP presents with worsening shortness of breath x 2 days. States that she was here two months prior with similar symptoms - she stopped taking all of her asthma medications, including symbicort and spiriva and the only medication she took was prednisone 10mg daily. She felt her shortness of breath come on yesterday, and she heard audible wheezing. No chest pain, no cough. No fevers/chills; good PO intake, with no nausea/vomiting. She presented to the ER, received IV solu-medrol, felt better - but her O2 sats were dropping on exertion to ~ 87-88%, so it was decided she would be admitted. . Physical Exam (per Admitting): General Appearance: no apparent distress Head: normocephalic, atraumatic Eyes: normal inspection ENT: hearing grossly normal Respiratory/Chest: no respiratory distress, no accessory muscle use, + wheezing (end expiratory wheezing) Cardiovascular: regular rate, rhythm, no edema, no murmur Abdomen/GI: normal bowel sounds, non tender, soft Extremities/Musculoskelatal: no calf tenderness, normal capillary refill, no pedal edema Neurologic/Psych: no motor/sensory deficits, alert, normal mood/affect Skin: normal color Lymphatic: no adenopathy Hospital Course EXACERBATION ASTHMA No infiltrates on chest x-ray. No indication for antibiotics. Received IV methylprednisolone and nebs. Transitioned to prednisone 40 mg daily. Discharge on prednisone 40 mg PO daily x 5 days, then 30 mg PO daily until seen in Pulmonary Clinic next week. SLEEP APNEA Continue CPAP. CHRONIC BACK PAIN Aggravated by coughing. Received analgesics with improvement. Ambulating. STEROID-INDUCED HYPERGLYCEMIA Received insulin coverage per protocol. VTE PROPHYLAXIS SQ heparin ordered, but patient refused. SCD's. Ambulate. DISPOSITION Discharge to home. Primary Care follow-up with CRISTOPHER Noguera. Pulmonary follow-up with Semaj Birch PA-C next week. . Total time spent on discharge = 35 min. This includes examination of the patient, discharge planning, medication reconciliation, and communication with other providers. . Discharge Instructions Date of Service September 16, 2016. Admission Reason for Admission: Asthma Exacerbation Discharge Discharge Diagnosis / Problem: asthma exacerbation Discharge Goals Goal(s): Improve function, Improve disease control Activity Recommendations Activity Limitations: resume your previous activity . Instructions / Follow-Up Instructions / Follow-Up APPOINTMENTS: FAMILY MEDICINE 10/31/2016 11:20 AM CRISTOPHER Santana PULMONARY MEDICINE 09/24/16 9:45 AM Semaj Birch PA-C INSTRUCTIONS: Prednisone dosing: Take 40 mg daily 09/17 - 09/20. Decrease dose to 30 mg daily starting 09/21. Further taper as instructed by Semaj Birch when you see him on 09/24. Seek medical attention if you have: * temperature above 101 * chest pain or trouble breathing * abdominal pain, nausea, vomiting * diarrhea, dark stools or bloody stools * any unanswered questions or concerns Call 911 if symptoms are severe. Call if you have any questions or problems. My cell # is [phone]. You can also reach a [facility] hospitalist on duty at [facility] 24 hours a day by calling [phone]. Please take good care of yourself. Benny Morrison . Current Hospital Diet Patient's current hospital diet: Regular Diet Discharge Diet Recommended Diet: AHA Diet (Heart Healthy) Pending Studies Studies pending at discharge: no Medical Emergencies . Who to Call and When: Medical Emergencies: If at any time you feel your situation is an emergency, please call 911 immediately. . Non-Emergent Contact Non-Emergency issues call your: Primary Care Provider, Telehealth Director . . "Provider Documentation" section prepared by Benny Morrison. . VTE Core Measure Inpt VTE Proph given/why not?: Unfractionated heparin SQ . Additional Copies To Petra Kelly; Semaj Birch PA-C
[2016-09-16 12:56] VITALS: BP 99/66; PULSE 64; TEMP 36.6; O2SAT 97
[2016-11-27] MEDS ORDERED: IPRASOL4 NEB (08:31)
[2016-11-27] MEDS ORDERED: PRED10TA PO ×2 (15:15→18:42)
[2016-11-29] MEDS ORDERED: AZIT-57 PO (09:07)
[2016-11-29] MEDS ORDERED: PRD20 PO (09:07)
[2017-02-24] MEDS ORDERED: OXGN (14:39)
[2017-02-24] MEDS ORDERED: PRED10TA PO (14:39)
[2017-02-24] MEDS ORDERED: CMD5 PO (14:39)
[2017-02-24] MEDS ORDERED: ENOX30IN4 SQ (14:40)
[2017-02-24] MEDS ORDERED: AZIT-60 PO (14:52)
[2017-04-08] MEDS ORDERED: VNTHFA/IN INH (08:31)
== END 2016-09-16 14:00 | disposition home or self-care (01) | DRG 202 ==
LOC: ENRESERVDT → ENRESERVTM → C.EDB 13:29 → C.MS4W 18:32
PROVIDERS: ADMIT Family Medicine; ATTEND Hospitalist
DX: J45.909 Unspecified asthma, uncomplicated (principal); D84.9 Immunodeficiency, unspecified; E27.40 Unspecified adrenocortical insufficiency; E88.01 Alpha-1-antitrypsin deficiency; F41.9 Anxiety disorder, unspecified; F32.9 Major depressive disorder, single episode, unspecified; M54.9 Dorsalgia, unspecified; G89.29 Other chronic pain; E78.5 Hyperlipidemia, unspecified; K21.9 Gastro-esophageal reflux disease without esophagitis; M81.0 Age-related osteoporosis without current pathological fracture; R73.9 Hyperglycemia, unspecified; M51.36 Other intervertebral disc degeneration, lumbar region; R31.29 Other microscopic hematuria; T38.0X5A Adverse effect of glucocorticoids and synthetic analogues, initial encounter; G47.33 Obstructive sleep apnea (adult) (pediatric); Z99.81 Dependence on supplemental oxygen; Z79.83 Long term (current) use of bisphosphonates; Z79.899 Other long term (current) drug therapy; Z79.52 Long term (current) use of systemic steroids; Z79.1 Long term (current) use of non-steroidal anti-inflammatories (NSAID); Z99.89 Dependence on other enabling machines and devices; Z87.891 Personal history of nicotine dependence; Z87.19 Personal history of other diseases of the digestive system; Z86.711 Personal history of pulmonary embolism; S32.009D Unspecified fracture of unspecified lumbar vertebra, subsequent encounter for fracture with routine healing; Z79.891 Long term (current) use of opiate analgesic

== ENCOUNTER 2016-10-18 02:16 | Emergency (ER) | payer OTHER ==
[~2016-10-18] VITALS: Ht 165.1 cm; Wt 93.3 kg
[~2016-10-18 02:16] MED LIST changes: -SYMIN160 INH
[2016-10-18 02:22] VITALS: TEMP 36.7; Ht 165.1 cm; Wt 93.3 kg
[2016-10-18] MEDS ORDERED: MoRPHine SULFATE 10 MG/ML CARP/VIAL IM STA (02:41)
[2016-10-18] MEDS ORDERED: MoRPHine SULFATE 4 MG/ML 1 ML CARP\\VIAL IV STA ×2 (02:45→04:41)
[2016-10-18 02:56] VITALS: O2SAT 98
[2016-10-18 03:21] VITALS: BP_DIAS 95
[2016-10-18] MEDS ORDERED: SPRIN PO (03:49)
--- NOTE | 2016-10-18 04:29 | EMERGENCY ROOM VISIT NOTE ---
History First contact with patient: 02:37 Chief Complaint: BACK PAIN Stated Complaint: BACK PAIN History of Present Illness The patient is a 55 year old female who presents to the Emergency Room with complaints of severe mid to low back pain after lifting heavy equipment one week ago. Patient said she heard a pop. Last time she did this she fractured her vertebrae. She has severe osteoporosis. She is on chronic prednisone for her asthma. Pain is 9 out of 10. Worse with movement and better with rest. It does not radiate. She has chronic back pain and takes [place]. Patient denies chest pain, dyspnea, fever, chills, numbness, tingling, loss of bowel or bladder control, saddle anesthesia, IV drug abuse. No direct injury to the area. Review of Systems See HPI for pertinent positives & negatives. A total of 10 systems reviewed and were otherwise negative. Past Medical/Surgical History Medical Problems: (1) Capxy-1-ithifibezwt deficiency carrier (2) Anxiety (3) Asthma (4) Chronic back pain (5) Depression (6) Deterioration of spinal disc of lower back (7) Dyslipidemia (8) GERD (gastroesophageal reflux disease) (9) H/O adrenal insufficiency (10) History of colonic diverticulitis (11) History of pulmonary embolism (12) Immunoglobulin deficiency (13) Microscopic hematuria (14) Osteoporosis (15) Respiratory failure, acute (16) Sleep apnea (17) Vertebral fracture, closed Surgical Problems: (1) H/O sinus surgery (2) History of carpal tunnel surgery (3) S/P cardiac cath (4) S/P herniorrhaphy (5) Status post appendectomy (6) Status post hernia repair (7) Status post partial colectomy (8) Status post thermoplasty (9) Status post thermoplasty Family History FH: heart disease FATHER FH: sleep apnea MOTHER FHx: cancer FHx: gallbladder disease Hypertension MOTHER Kidney disease MOTHER Social History Smoking Status: Former Smoker Alcohol Use: none Housing Status: lives with significant other Current/Historical Medications Scheduled Alendronate Sodium (Fosamax), 70 MG PO WK Cholecalciferol (Vitamin D), 1,000 UNIT PO BID Citalopram Hydrobromide (Celexa), 40 MG PO QAM Cyanocobalamin (Vitamin B-12), 1,000 MCG PO QAM Docusate Sodium (Colace), 200 MG PO HS Furosemide (Furosemide), 40 MG PO Q2D Immune Globulin (Human) Iv (Privigen), Unknown Dose IV MONTHLY Omeprazole (Prilosec), 20 MG PO BID Oxygen (Oxygen), 2 LITERS NA PRN Prednisone Tab (Prednisone), 10 MG PO QAM Scheduled PRN Albuterol Hfa (Ventolin Hfa), 2-4 PUFFS INH Q6H PRN for SOB/Wheezing Epinephrine (Epipen 2-Deshawn), 0.3 MG IM UD PRN for ALLERGIC REACTION Glimepiride (Glimepiride), 1 TAB PO DAILY PRN for glucose > 110 Hydrocodone/Acetaminophen 5MG/325MG ([place] 5MG/325MG), 1-2 TABS PO Q4-6H PRN for Pain Ipratropium-Albuterol (Duoneb), 1 TREATMENT INH Q4H PRN for SOB/Wheezing Lorazepam (Ativan), 1 MG PO QAM PRN for Anxiety Lorazepam (Lorazepam), 2 MG PO HS PRN for Anxiety Polyethylene Glycol 3350 (Miralax), 17 GM PO DAILY PRN for Constipation Potassium Chloride (Potassium Chloride Er), 10 MEQ PO BID PRN for TAKE ON LASIX DAYS Tiotropium [place] (Spiriva Handihaler), 1 PUFF PO UD PRN for Shortness of Breath Allergies Coded Allergies: Aspirin (Verified Allergy, Intermediate, HIVES, 10/18/16) Ibuprofen (Verified Allergy, Intermediate, HIVES, 10/18/16) Levofloxacin (Verified Allergy, Intermediate, HIVES, 10/18/16) Iodinated Diagnostic Agents (Verified Allergy, Unknown, HIVES, 10/18/16) Pregabalin (Verified Adverse Reaction, Intermediate, SEVERE DEPRESSION, 10/18/16) Zolpidem (Verified Adverse Reaction, Intermediate, HALLUCINATIONS, 10/18/16) Gabapentin (Verified Adverse Reaction, Mild, GOOFY THOUGHTS, 10/18/16) Physical Exam Vital Signs Date Time Temp Pulse Resp B/P (MAP) Pulse Ox O2 Delivery O2 Flow Rate FiO2 10/18/16 03:21 51 16 168/95 96 Room Air 10/18/16 02:56 98 Room Air 10/18/16 02:22 36.7 56 18 156/81 96 Room Air Physical Exam VITALS: Vitals are noted on the nurse's note and reviewed by myself. Vital signs hypertensive GENERAL: Pleasant female, in no acute distress, nondiaphoretic, well-developed well-nourished. SKIN: Capillary reflex less than 2 seconds. HEENT: Normocephalic. PERRLA. EOMI. Nares patent. Mucous membranes moist. Neck is supple without nuchal rigidity. HEART: Regular rate and rhythm LUNGS: Clear to auscultation bilaterally without wheezes, rales or rhonchi. No retractions or accessory muscle use. ABDOMEN: Positive bowel sounds x 4. Normal tympanic percussion. Soft, nontender, without masses or organomegaly. Zepeda sign negative. No guarding or rebound tenderness. CVA tenderness MUSCULOSKELETAL: No gross musculoskeletal defects. No pedal edema. No calf tenderness. Mid thoracic and lumbar tenderness on exam without step-offs. Negative straight leg raise. Patient can ambulate without difficulties. NEURO: Patient was alert and oriented to person place and time. Normal sensation to light and sharp touch. Deep tendon reflexes 2+ patella bilaterally. No focal neurological deficits. Medical Decision & Procedures Medications Administered Medications (Trade) Dose Ordered Sig/Kaye Route Start Time Stop Time Status Last Admin Dose Admin Morphine Sulfate (MoRPHine SULFATE INJ) 4 mg NOW STAT IV 10/18/16 02:45 10/18/16 02:46 DC 10/18/16 02:45 4 MG ED Course Prior records/ancillary studies reviewed. Triage Nursing notes reviewed. Additional history obtained from family. The patient's history was concerning for back pain. Differential diagnosis: Etiologies such as musculoskeletal, disc herniation, fracture, aortic disease, metastatic disease, cord compression, discitis, infection, renal colic, gastrointestinal, acute exacerbation of chronic back pain, sciatica, cauda equina, as well as others were entertained. Physical findings: As above. No focal neurologic findings noted. ER treatment provided: Morphine On reassessment the patient felt better. Diagnostics interpreted by me: Imaging studies: CT of the T and L-spine were reviewed and read by stat radiology concerning for T9 fracture Consultation: A consultation was placed with the orthopedic spine, Dr. Sadler. The case was discussed and diagnostics were reviewed. Recommends discharge with pain management and follow-up in clinic. This appears to be consistent with T9 fracture. Patient was neurovascularly and neurologically intact. She was able to ambulate without difficulties. She is advised take medicines as directed and follow-up with orthopedic spine in a few days or here in the ER sooner for severe pain, inability to walk, worsening signs or symptoms or as needed. The patient's physical examination and detailed history did not reveal any red flags for back pain such as those listed in the differential diagnosis. Therefore advanced diagnostics and consultations were felt to be unwarranted. She was advised no strenuous activity until pain resolves and cleared by orthopedic spine. By the evaluation outlined above emergent etiologies such as aortic disease, metastatic disease, infection, renal colic, gastrointestinal, cord compression, cauda equina, as well as others were deemed relatively unlikely. The pt informed about the findings as listed above. All questions were answered and pleased with the treatment. Return instructions were outlined and the patient was discharged in stable condition. Outpatient prescription management: Oxy IR 5mg 1-2 po Q4 hrs prn Referral: The patient was referred back to orthopedic spine for follow-up in 2 to 3 days for a recheck of the current condition. Case reviewed with my attending Medical Decision As above Impression Primary Impression: Closed fracture of T9 vertebra Departure Information Dispostion Home / Self-Care Condition GOOD Referrals Petra Kelly (PCP) Patient Instructions My [facility] Additional Instructions DO NOT drive, drink alcohol, operate machinery, or perform dangerous activities today. You were given medications in the ER that can affect your ability to safely function or operate a vehicle. Oxycodone (OxyIR) 5mg: Take 1-2 pills every four hours for breakthrough pain. Avoid alcohol, operating machinery or dangerous equipment, working on ladders or roofs, DRIVING, or situations where being under the influence may be dangerous. It is recommended to use an tepf-rqj-ybhvvmo stool softener such as Colace, 100mg twice daily while taking this medication to avoid constipation. Acetaminophen(Tylenol) may be used for fever or pain. Use 1000mg every six hours as needed. Avoid using more than 3000mg in a 24 hour period. This medication can be taken if you need to drive, work, or perform activities which may be dangerous when taking narcotic pain medication. Rest and avoid heavy lifting until your symptoms resolve and then gradually return to full activity. A good rule of thumb is if it hurts your back to perform a certain activity, then it should be avoided until you are healthy again. A heating pad, warm compresses, or a hot shower may help with tight muscles and can be done several times a day as needed. Continue current medications. Return to the ER immediately for any numbness, tingling, severe pain, loss of control of your bowels or bladder, inability to walk, or as needed. Follow up with orthopedics spine within 3-5 days for a recheck of your current condition. Problem Qualifiers Primary Impression: Closed fracture of T9 vertebra Encounter type: initial encounter Fracture morphology: other fracture Qualified Codes: S22.078A - Other fracture of t9-t10 vertebra, initial encounter for closed fracture
[2016-10-18] MEDS ORDERED: OXYCODONE IR HOME PACK PO ONE (04:30)
[2016-10-18] MEDS ORDERED: OXYC1TAB3 PO (04:31)
--- NOTE | 2016-10-18 04:40 | EMERGENCY ROOM VISIT NOTE ---
ED Visit Note First contact with patient: 02:37 Patient with a fall complaints of low thoracic back pain. Agree with the physician assistants workup. Patient was found to have a low thoracic vertebral body fracture. The case was discussed by the physician lens assistant with the spine physician. On reexamination by myself as well as patient is able to move her back and is able to move her legs without difficulty has a nonfocal neurologic exam Problem List Medical Problems: (1) Vkhzx-8-gfomhjggygb deficiency carrier Status: Chronic (2) Anxiety Status: Chronic (3) Asthma Status: Chronic (4) Chronic back pain Status: Chronic (5) Depression Status: Chronic (6) Deterioration of spinal disc of lower back Status: Chronic (7) Dyslipidemia Status: Chronic (8) GERD (gastroesophageal reflux disease) Status: Chronic (9) H/O adrenal insufficiency Status: Chronic (10) History of colonic diverticulitis Status: Chronic (11) History of pulmonary embolism Status: Chronic (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 (13) Microscopic hematuria Permanent Comment: evaluated by Urology; no significant path per patient Status: Chronic (14) Osteoporosis Status: Chronic (15) Sleep apnea Status: Chronic (16) Vertebral fracture, closed Status: Chronic Surgical Problems: (1) H/O sinus surgery Status: Chronic (2) History of carpal tunnel surgery Status: Chronic (3) S/P cardiac cath Status: Chronic (4) S/P herniorrhaphy Status: Chronic (5) Status post appendectomy Status: Chronic (6) Status post hernia repair Status: Chronic (7) Status post partial colectomy Status: Chronic (8) Status post thermoplasty Status: Chronic (9) Status post thermoplasty Status: Chronic Current/Historical Medications Scheduled Alendronate Sodium (Fosamax), 70 MG PO WK Cholecalciferol (Vitamin D), 1,000 UNIT PO BID Citalopram Hydrobromide (Celexa), 40 MG PO QAM Cyanocobalamin (Vitamin B-12), 1,000 MCG PO QAM Docusate Sodium (Colace), 200 MG PO HS Furosemide (Furosemide), 40 MG PO Q2D Immune Globulin (Human) Iv (Privigen), Unknown Dose IV MONTHLY Omeprazole (Prilosec), 20 MG PO BID Oxygen (Oxygen), 2 LITERS NA PRN Prednisone Tab (Prednisone), 10 MG PO QAM Scheduled PRN Albuterol Hfa (Ventolin Hfa), 2-4 PUFFS INH Q6H PRN for SOB/Wheezing Epinephrine (Epipen 2-Deshawn), 0.3 MG IM UD PRN for ALLERGIC REACTION Glimepiride (Glimepiride), 1 TAB PO DAILY PRN for glucose > 110 Hydrocodone/Acetaminophen 5MG/325MG ([place] 5MG/325MG), 1-2 TABS PO Q4-6H PRN for Pain Ipratropium-Albuterol (Duoneb), 1 TREATMENT INH Q4H PRN for SOB/Wheezing Lorazepam (Ativan), 1 MG PO QAM PRN for Anxiety Lorazepam (Lorazepam), 2 MG PO HS PRN for Anxiety Oxycodone Immediate Rel Tab (Roxicodone Ir), 1-2 TAB PO Q4H PRN for Severe Pain Polyethylene Glycol 3350 (Miralax), 17 GM PO DAILY PRN for Constipation Potassium Chloride (Potassium Chloride Er), 10 MEQ PO BID PRN for TAKE ON LASIX DAYS Tiotropium [place] (Spiriva Handihaler), 1 PUFF PO UD PRN for Shortness of Breath Allergies Coded Allergies: Aspirin (Verified Allergy, Intermediate, HIVES, 10/18/16) Ibuprofen (Verified Allergy, Intermediate, HIVES, 10/18/16) Levofloxacin (Verified Allergy, Intermediate, HIVES, 10/18/16) Iodinated Diagnostic Agents (Verified Allergy, Unknown, HIVES, 10/18/16) Pregabalin (Verified Adverse Reaction, Intermediate, SEVERE DEPRESSION, 10/18/16) Zolpidem (Verified Adverse Reaction, Intermediate, HALLUCINATIONS, 10/18/16) Gabapentin (Verified Adverse Reaction, Mild, GOOFY THOUGHTS, 10/18/16) Vital Signs Date Time Temp Pulse Resp B/P (MAP) Pulse Ox O2 Delivery O2 Flow Rate FiO2 10/18/16 03:21 51 16 168/95 96 Room Air 10/18/16 02:56 98 Room Air 10/18/16 02:22 36.7 56 18 156/81 96 Room Air Medications Administered Medications (Trade) Dose Ordered Sig/Kaye Route Start Time Stop Time Status Last Admin Dose Admin Morphine Sulfate (MoRPHine SULFATE INJ) 4 mg NOW STAT IV 10/18/16 02:45 10/18/16 02:46 DC 10/18/16 02:45 4 MG Departure Information Impression Primary Impression: Closed fracture of T9 vertebra Dispostion Home / Self-Care Condition GOOD Prescriptions Oxycodone Immediate Rel Tab (ROXICODONE IR) 5 Mg Tab 1-2 TAB PO Q4H Y for Severe Pain, #15 TAB initial course Prov: Jaimie Rebolledo .DENICE 10/18/16 Referrals Petra Kelly (PCP) Gaetano Sadler D.O. Forms HOME CARE DOCUMENTATION FORM, IMPORTANT VISIT INFORMATION Patient Instructions My [facility], ED Fx [facility] [facility] Additional Instructions DO NOT drive, drink alcohol, operate machinery, or perform dangerous activities today. You were given medications in the ER that can affect your ability to safely function or operate a vehicle. Oxycodone (OxyIR) 5mg: Take 1-2 pills every four hours for breakthrough pain. Avoid alcohol, operating machinery or dangerous equipment, working on ladders or roofs, DRIVING, or situations where being under the influence may be dangerous. It is recommended to use an senh-sgq-mzendbc stool softener such as Colace, 100mg twice daily while taking this medication to avoid constipation. Acetaminophen(Tylenol) may be used for fever or pain. Use 1000mg every six hours as needed. Avoid using more than 3000mg in a 24 hour period. This medication can be taken if you need to drive, work, or perform activities which may be dangerous when taking narcotic pain medication. Rest and avoid heavy lifting until your symptoms resolve and then gradually return to full activity. A good rule of thumb is if it hurts your back to perform a certain activity, then it should be avoided until you are healthy again. A heating pad, warm compresses, or a hot shower may help with tight muscles and can be done several times a day as needed. Continue current medications. Return to the ER immediately for any numbness, tingling, severe pain, loss of control of your bowels or bladder, inability to walk, or as needed. Follow up with orthopedics spine within 3-5 days for a recheck of your current condition.
[2016-10-18 05:06] VITALS: BP_SYST 126; PULSE 58; O2SAT 99
--- NOTE | 2016-10-18 07:42 | DIAGNOSTIC IMAGING REPORT ---
CT LUMBAR SPINE WITHOUT CT DOSE: 2709.58 mGy.cm CLINICAL HISTORY: Back pain. History of fracture. TECHNIQUE: Axial images of the lumbar spine were obtained without IV contrast. Sagittal and coronal reconstructions were viewed. COMPARISON STUDY: Lumbar spinal radiograph April 12, 2016. FINDINGS: Alignment of the lumbar spine is anatomic. Vertebral body heights are maintained. There is no acute lumbar spine fracture or suspicious lesion. There is disc bulge at the L4-L5 level. Central canal is suboptimally assessed by CT but there is suspected mild central canal stenosis at this level. Paravertebral soft tissues are unremarkable. There is moderate plaque of the abdominal aorta and the caliber of the abdominal aorta is normal. IMPRESSION: 1. No acute lumbar spine fracture or subluxation. 2. Mild multilevel degenerative disc disease and facet arthrosis. Electronically signed by: Ruben Ortez M.D. 10/18/2016 7:41 AM Dictated Date/Time: 10/18/2016 7:35 AM
--- NOTE | 2016-10-18 09:10 | DIAGNOSTIC IMAGING REPORT ---
CT SCAN OF THE THORACIC SPINE WITHOUT IV CONTRAST CLINICAL HISTORY: Thoracic back pain. COMPARISON STUDY: Radiographs of the thoracic spine dated 04/12/2016. Chest CT dated 07/15/2016. TECHNIQUE: CT scan of the thoracic spine is performed from the lower cervical spine to the upper lumbar spine. Images are reviewed in the axial, sagittal, and coronal planes. IV contrast was not administered for this examination. FINDINGS: The skeletal structures are osteopenic. There is a [id number] chronic compression deformity of T11. This is unchanged from 07/15/2016. There is a mild acute to subacute compression fracture of T9. This is new from 07/15/2016. No retropulsed fragments are identified. Vertebral body height is otherwise maintained throughout the thoracic spine. Alignment is preserved. Mild hyperkyphosis is noted. The transverse and spinous processes appear intact. No lytic or blastic lesions are seen. Intervertebral disc spaces appear maintained. No large disc herniation is suspected. The central canal is clear as visualized. No high-grade neural foraminal stenosis is suggested throughout the thoracic spine. The posterior ribs are intact as visualized. The paraspinous soft tissues are normal in appearance. Atherosclerotic calcification is noted in the thoracic aorta. Mild paraseptal emphysematous change is suspected. The visualized lung parenchyma is otherwise clear as imaged. See report of chest CT dated 07/15/2016 for detailed parenchymal findings. IMPRESSION: 1. There is a mild acute to subacute compression fracture of T9. This is new from 07/15/2016. No retropulsed fragments are identified. 2. A chronic compression deformity of T11 is unchanged from previous. 3. Osteopenia and mild degenerative change as above. Dictated: 10/18/2016 8:19 AM Transcribed: 10/18/2016 9:09 AM Ken Electronically signed by: Nathanael Rutherford M.D. 10/18/2016 9:11 AM Dictated Date/Time: 10/18/2016 8:19 AM
[2016-10-30] MEDS ORDERED: FLX5 PO (11:47)
[2016-11-27] MEDS ORDERED: IPRASOL4 NEB (08:31)
[2016-11-27] MEDS ORDERED: PRED10TA PO ×2 (15:15→18:42)
[2016-11-29] MEDS ORDERED: PRD20 PO (09:07)
[2016-11-29] MEDS ORDERED: AZIT-57 PO (09:07)
[2017-02-24] MEDS ORDERED: PRED10TA PO (14:39)
[2017-02-24] MEDS ORDERED: OXGN (14:39)
[2017-02-24] MEDS ORDERED: CMD5 PO (14:39)
[2017-02-24] MEDS ORDERED: ENOX30IN4 SQ (14:40)
[2017-02-24] MEDS ORDERED: AZIT-60 PO (14:52)
[2017-04-08] MEDS ORDERED: VNTHFA/IN INH (08:31)
== END 2016-10-18 05:02 | disposition home or self-care (01) ==
LOC: C.EDB 02:17 → C.EDA 05:02
DX: S22.078A Other fracture of T9-T10 vertebra, initial encounter for closed fracture (principal); X50.9XXA Other and unspecified overexertion or strenuous movements or postures, initial encounter; G89.29 Other chronic pain; M54.5 Low back pain; M81.0 Age-related osteoporosis without current pathological fracture; J45.909 Unspecified asthma, uncomplicated; F41.9 Anxiety disorder, unspecified; F32.9 Major depressive disorder, single episode, unspecified; M51.36 Other intervertebral disc degeneration, lumbar region; E78.5 Hyperlipidemia, unspecified; K21.9 Gastro-esophageal reflux disease without esophagitis; G47.30 Sleep apnea, unspecified; Z79.52 Long term (current) use of systemic steroids; Z86.711 Personal history of pulmonary embolism; Z90.49 Acquired absence of other specified parts of digestive tract; Z87.891 Personal history of nicotine dependence; Z82.49 Family history of ischemic heart disease and other diseases of the circulatory system

== ENCOUNTER 2016-10-19 22:01 | Emergency (ER) | payer OTHER ==
[~2016-10-19] VITALS: Ht 165.1 cm; Wt 93.0 kg
[~2016-10-19 22:01] MED LIST changes: +OXYC1TAB3 PO; +SPRIN PO
[2016-10-19 22:10] VITALS: Ht 165.1 cm; Wt 93.0 kg
[2016-10-19] MEDS ORDERED: MoRPHine SULFATE 4 MG/ML 1 ML CARP\\VIAL IV STA (22:21)
[2016-10-19] MEDS ORDERED: ONDANSETRON INJ 2 MG/ML 2 ML VIAL IV STA (22:21)
[2016-10-19 23:33] LABS: BUN/CREATININE RATIO 14.5 (10-20); CALCIUM 8.4 mg/dl (8.5-10.1); CREATININE 0.83 mg/dl (0.60-1.20); POTASSIUM 3.9 mmol/L (3.5-5.1)
[2016-10-19 23:37] LABS: BASO % 0.5 %; BASO ABS # 0.05 K/uL (0-0.2); COMPLETE YES; EOS % 1.3 %; HEMATOCRIT 33.2 % (37-47); IG% 0.3 %; LYMPH % 30.8 %; LYMPH ABS # 3.07 K/uL (1.2-3.4); MEAN CELL VOLUME 75.8 fL (80-100); MEAN CORPUSCULAR HEMOGLOBIN 21.7 pg (25-34); MEAN CORPUSCULAR HGB CONC 28.6 g/dl (32-36); MEAN PLATELET VOLUME 10.1 fL (7.4-10.4); MONO % 8.5 %; NEUT % 58.6 %; PLATELET COUNT 273 K/uL (130-400); RED BLOOD COUNT 4.38 M/uL (4.2-5.4); WHITE BLOOD COUNT 9.98 K/uL (4.8-10.8)
[2016-10-20] MEDS ORDERED: GADAVIST IV PRN (01:30)
[2016-10-20] MEDS ORDERED: MoRPHine SULFATE 4 MG/ML 1 ML CARP\\VIAL IV STA (02:24)
--- NOTE | 2016-10-20 02:31 | EMERGENCY ROOM VISIT NOTE ---
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 (2) Anxiety Status: Chronic (3) Asthma Status: Chronic (4) Chronic back pain Status: Chronic (5) Depression Status: Chronic (6) Deterioration of spinal disc of lower back Status: Chronic (7) Dyslipidemia Status: Chronic (8) GERD (gastroesophageal reflux disease) Status: Chronic (9) H/O adrenal insufficiency Status: Chronic (10) History of colonic diverticulitis Status: Chronic (11) History of pulmonary embolism Status: Chronic (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 (13) Microscopic hematuria Permanent Comment: evaluated by Urology; no significant path per patient Status: Chronic (14) Osteoporosis Status: Chronic (15) Sleep apnea Status: Chronic (16) Vertebral fracture, closed Status: Chronic Surgical Problems: (1) H/O sinus surgery Status: Chronic (2) History of carpal tunnel surgery Status: Chronic (3) S/P cardiac cath Status: Chronic (4) S/P herniorrhaphy Status: Chronic (5) Status post appendectomy Status: Chronic (6) Status post hernia repair Status: Chronic (7) Status post partial colectomy Status: Chronic (8) Status post thermoplasty Status: Chronic (9) Status post thermoplasty Status: Chronic Current/Historical Medications Scheduled Alendronate Sodium (Fosamax), 70 MG PO WK Cholecalciferol (Vitamin D), 1,000 UNIT PO BID Citalopram Hydrobromide (Celexa), 40 MG PO QAM Cyanocobalamin (Vitamin B-12), 1,000 MCG PO QAM Docusate Sodium (Colace), 200 MG PO HS Furosemide (Furosemide), 40 MG PO Q2D Home O2 Therapy (Oxygen), 2 LITERS NA PRN Immune Globulin (Human) Iv (Privigen), Unknown Dose IV MONTHLY Omeprazole (Prilosec), 20 MG PO BID Scheduled PRN Albuterol Hfa (Ventolin Hfa), 2-4 PUFFS INH Q6H PRN for SOB/Wheezing Epinephrine (Epipen 2-Deshawn), 0.3 MG IM UD PRN for ALLERGIC REACTION Glimepiride (Glimepiride), 1 TAB PO DAILY PRN for glucose > 110 Hydrocodone/Acetaminophen 5MG/325MG ([place] 5MG/325MG), 1-2 TABS PO Q4-6H PRN for Pain Ipratropium-Albuterol (Duoneb), 1 TREATMENT INH Q4H PRN for SOB/Wheezing Lorazepam (Ativan), 2 MG PO HS PRN for Anxiety Lorazepam (Lorazepam), 1 MG PO DIRECTED PRN for Anxiety Potassium Chloride (Potassium Chloride Er), 10 MEQ PO BID PRN for TAKE ON LASIX DAYS Tiotropium [place] (Spiriva Handihaler), 1 PUFF PO UD PRN for Shortness of Breath Allergies Coded Allergies: Aspirin (Verified Allergy, Intermediate, HIVES, 10/20/16) Ibuprofen (Verified Allergy, Intermediate, HIVES, 10/20/16) Levofloxacin (Verified Allergy, Intermediate, HIVES, 10/20/16) Iodinated Diagnostic Agents (Verified Allergy, Unknown, HIVES, 10/20/16) Pregabalin (Verified Adverse Reaction, Intermediate, SEVERE DEPRESSION, 03/28) Zolpidem (Verified Adverse Reaction, Intermediate, HALLUCINATIONS, 10/20/16 ) Gabapentin (Verified Adverse Reaction, Mild, GOOFY THOUGHTS, 10/20/16) Vital Signs Date Time Temp Pulse Resp B/P (MAP) Pulse Ox O2 Delivery O2 Flow Rate FiO2 10/20/16 01:49 58 18 138/78 93 Room Air 10/19/16 22:10 36.8 72 16 149/88 95 Room Air Laboratory Results 10/19/16 23:07 Red Blood Count 4.38, Mean Corpuscular Volume 75.8, Mean Corpuscular Hemoglobin 21.7, Mean Corpuscular Hemoglobin Concent 28.6, Mean Platelet Volume 10.1, Neutrophils (%) (Auto) 58.6, Lymphocytes (%) (Auto) 30.8, Monocytes (%) (Auto) 8.5, Eosinophils (%) (Auto) 1.3, Basophils (%) (Auto) 0.5, Neutrophils # (Auto) 5.85, Lymphocytes # (Auto) 3.07, Monocytes # (Auto) 0.85, Eosinophils # (Auto) 0.13, Basophils # (Auto) 0.05 10/19/16 23:07 Test 10/19/16 23:07 White Blood Count 9.98 K/uL (4.8-10.8) Red Blood Count 4.38 M/uL (4.2-5.4) Hemoglobin 9.5 g/dL (12.0-16.0) Hematocrit 33.2 % (37-47) Mean Corpuscular Volume 75.8 fL (80-100) Mean Corpuscular Hemoglobin 21.7 pg (25-34) Mean Corpuscular Hemoglobin Concent 28.6 g/dl (32-36) Platelet Count 273 K/uL (130-400) Mean Platelet Volume 10.1 fL (7.4-10.4) Neutrophils (%) (Auto) 58.6 % Lymphocytes (%) (Auto) 30.8 % Monocytes (%) (Auto) 8.5 % Eosinophils (%) (Auto) 1.3 % Basophils (%) (Auto) 0.5 % Neutrophils # (Auto) 5.85 K/uL (1.4-6.5) Lymphocytes # (Auto) 3.07 K/uL (1.2-3.4) Monocytes # (Auto) 0.85 K/uL (0.11-0.59) Eosinophils # (Auto) 0.13 K/uL (0-0.5) Basophils # (Auto) 0.05 K/uL (0-0.2) RDW Standard Deviation 52.9 fL (36.4-46.3) RDW Coefficient of Variation 19.0 % (11.5-14.5) Immature Granulocyte % (Auto) 0.3 % Immature Granulocyte # (Auto) 0.03 K/uL (0.00-0.02) Anion Gap 6.0 mmol/L (3-11) Est Creatinine Clear Calc Drug Dose 85.4 ml/min Estimated GFR () 91.4 Estimated GFR (Non- 78.8 BUN/Creatinine Ratio 14.5 (10-20) Calcium Level 8.4 mg/dl (8.5-10.1) Medications Administered Medications (Trade) Dose Ordered Sig/Kaye Route Start Time Stop Time Status Last Admin Dose Admin Morphine Sulfate (MoRPHine SULFATE INJ) 4 mg NOW STAT IV 10/19/16 22:21 10/19/16 22:24 DC 10/19/16 22:52 4 MG Ondansetron HCl (Zofran Inj) 4 mg NOW STAT IV 10/19/16 22:21 10/19/16 22:24 DC 10/19/16 22:52 4 MG Departure Information Referrals Petra Kelly (PCP) Patient Instructions My [facility]
[2016-10-20] MEDS ORDERED: OXYCODONE IR HOME PACK PO ONE (02:45)
--- NOTE | 2016-10-20 02:45 | EMERGENCY ROOM VISIT NOTE ---
History First contact with patient: 22:17 Chief Complaint: BACK PAIN Stated Complaint: BACK PAIN,TINGLING AND NUMBNESS IN HANDS AND FEET History of Present Illness The patient is a 55 year old female who presents to the Emergency Room with complaints of severe ongoing mid to low back pain after injuring it one week ago who was seen here the other day and diagnosed with a T9 compression fracture. Patient is on chronic prednisone. Patient has appointment on the with Dr. Sadler. Patient describes the pain as severe, 9 out of 10. Nothing makes it better or worse. No new injury. Patient with a numbness and tingling to her legs. Patient denies fever, chills, nausea, vomiting, diarrhea , loss of bowel or bladder control, saddle anesthesia, leg weakness. Review of Systems See HPI for pertinent positives & negatives. A total of 10 systems reviewed and were otherwise negative. Past Medical/Surgical History Medical Problems: (1) Sqard-3-rftybyawbot deficiency carrier (2) Anxiety (3) Asthma (4) Chronic back pain (5) Depression (6) Deterioration of spinal disc of lower back (7) Dyslipidemia (8) GERD (gastroesophageal reflux disease) (9) H/O adrenal insufficiency (10) History of colonic diverticulitis (11) History of pulmonary embolism (12) Immunoglobulin deficiency (13) Microscopic hematuria (14) Osteoporosis (15) Respiratory failure, acute (16) Sleep apnea (17) Vertebral fracture, closed Surgical Problems: (1) H/O sinus surgery (2) History of carpal tunnel surgery (3) S/P cardiac cath (4) S/P herniorrhaphy (5) Status post appendectomy (6) Status post hernia repair (7) Status post partial colectomy (8) Status post thermoplasty (9) Status post thermoplasty Family History FH: heart disease FATHER FH: sleep apnea MOTHER FHx: cancer FHx: gallbladder disease Hypertension MOTHER Kidney disease MOTHER Social History Smoking Status: Former Smoker Alcohol Use: none Drug Use: none Housing Status: lives with significant other Current/Historical Medications Scheduled Alendronate Sodium (Fosamax), 70 MG PO WK Cholecalciferol (Vitamin D), 1,000 UNIT PO BID Citalopram Hydrobromide (Celexa), 40 MG PO QAM Cyanocobalamin (Vitamin B-12), 1,000 MCG PO QAM Docusate Sodium (Colace), 200 MG PO HS Furosemide (Furosemide), 40 MG PO Q2D Home O2 Therapy (Oxygen), 2 LITERS NA PRN Immune Globulin (Human) Iv (Privigen), Unknown Dose IV MONTHLY Omeprazole (Prilosec), 20 MG PO BID Scheduled PRN Albuterol Hfa (Ventolin Hfa), 2-4 PUFFS INH Q6H PRN for SOB/Wheezing Epinephrine (Epipen 2-Deshawn), 0.3 MG IM UD PRN for ALLERGIC REACTION Glimepiride (Glimepiride), 1 TAB PO DAILY PRN for glucose > 110 Hydrocodone/Acetaminophen 5MG/325MG ([place] 5MG/325MG), 1-2 TABS PO Q4-6H PRN for Pain Ipratropium-Albuterol (Duoneb), 1 TREATMENT INH Q4H PRN for SOB/Wheezing Lorazepam (Ativan), 2 MG PO HS PRN for Anxiety Lorazepam (Lorazepam), 1 MG PO DIRECTED PRN for Anxiety Potassium Chloride (Potassium Chloride Er), 10 MEQ PO BID PRN for TAKE ON LASIX DAYS Tiotropium [place] (Spiriva Handihaler), 1 PUFF PO UD PRN for Shortness of Breath Allergies Coded Allergies: Aspirin (Verified Allergy, Intermediate, HIVES, 10/20/16) Ibuprofen (Verified Allergy, Intermediate, HIVES, 10/20/16) Levofloxacin (Verified Allergy, Intermediate, HIVES, 10/20/16) Iodinated Diagnostic Agents (Verified Allergy, Unknown, HIVES, 10/20/16) Pregabalin (Verified Adverse Reaction, Intermediate, SEVERE DEPRESSION, 03/28) Zolpidem (Verified Adverse Reaction, Intermediate, HALLUCINATIONS, 10/20/16 ) Gabapentin (Verified Adverse Reaction, Mild, GOOFY THOUGHTS, 10/20/16) Physical Exam Vital Signs Date Time Temp Pulse Resp B/P (MAP) Pulse Ox O2 Delivery O2 Flow Rate FiO2 10/20/16 01:49 58 18 138/78 93 Room Air 10/19/16 22:10 36.8 72 16 149/88 95 Room Air Physical Exam VITALS: Vitals are noted on the nurse's note and reviewed by myself. Vital signs stable. GENERAL: Pleasant female, in no acute distress, nondiaphoretic, well-developed well-nourished. SKIN: Capillary reflex less than 2 seconds. HEENT: Normocephalic. PERRLA. EOMI. Nares patent. Mucous membranes moist. Neck is supple without nuchal rigidity. HEART: Regular rate and rhythm without murmurs gallops or rubs. LUNGS: Clear to auscultation bilaterally without wheezes, rales or rhonchi. No retractions or accessory muscle use. ABDOMEN: Positive bowel sounds x 4. Normal tympanic percussion. Soft, nontender, without masses or organomegaly. Zepeda sign negative. No guarding or rebound tenderness. MUSCULOSKELETAL: No gross musculoskeletal defects. No pedal edema. No calf tenderness. T9 tenderness without step-off, no lumbar tenderness. Negative straight leg raise. Patient can ambulate without difficulties. NEURO: Patient was alert and oriented to person place and time. Normal sensation to light and sharp touch. Deep tendon reflexes 2+ patella bilaterally. No focal neurological deficits. Medical Decision & Procedures Laboratory Results 10/19/16 23:07 Red Blood Count 4.38, Mean Corpuscular Volume 75.8, Mean Corpuscular Hemoglobin 21.7, Mean Corpuscular Hemoglobin Concent 28.6, Mean Platelet Volume 10.1, Neutrophils (%) (Auto) 58.6, Lymphocytes (%) (Auto) 30.8, Monocytes (%) (Auto) 8.5, Eosinophils (%) (Auto) 1.3, Basophils (%) (Auto) 0.5, Neutrophils # (Auto) 5.85, Lymphocytes # (Auto) 3.07, Monocytes # (Auto) 0.85, Eosinophils # (Auto) 0.13, Basophils # (Auto) 0.05 10/19/16 23:07 Test 10/19/16 23:07 White Blood Count 9.98 K/uL (4.8-10.8) Red Blood Count 4.38 M/uL (4.2-5.4) Hemoglobin 9.5 g/dL (12.0-16.0) Hematocrit 33.2 % (37-47) Mean Corpuscular Volume 75.8 fL (80-100) Mean Corpuscular Hemoglobin 21.7 pg (25-34) Mean Corpuscular Hemoglobin Concent 28.6 g/dl (32-36) Platelet Count 273 K/uL (130-400) Mean Platelet Volume 10.1 fL (7.4-10.4) Neutrophils (%) (Auto) 58.6 % Lymphocytes (%) (Auto) 30.8 % Monocytes (%) (Auto) 8.5 % Eosinophils (%) (Auto) 1.3 % Basophils (%) (Auto) 0.5 % Neutrophils # (Auto) 5.85 K/uL (1.4-6.5) Lymphocytes # (Auto) 3.07 K/uL (1.2-3.4) Monocytes # (Auto) 0.85 K/uL (0.11-0.59) Eosinophils # (Auto) 0.13 K/uL (0-0.5) Basophils # (Auto) 0.05 K/uL (0-0.2) RDW Standard Deviation 52.9 fL (36.4-46.3) RDW Coefficient of Variation 19.0 % (11.5-14.5) Immature Granulocyte % (Auto) 0.3 % Immature Granulocyte # (Auto) 0.03 K/uL (0.00-0.02) Anion Gap 6.0 mmol/L (3-11) Est Creatinine Clear Calc Drug Dose 85.4 ml/min Estimated GFR () 91.4 Estimated GFR (Non- 78.8 BUN/Creatinine Ratio 14.5 (10-20) Calcium Level 8.4 mg/dl (8.5-10.1) Medications Administered Medications (Trade) Dose Ordered Sig/Kaye Route Start Time Stop Time Status Last Admin Dose Admin Morphine Sulfate (MoRPHine SULFATE INJ) 4 mg NOW STAT IV 10/19/16 22:21 10/19/16 22:24 DC 10/19/16 22:52 4 MG Ondansetron HCl (Zofran Inj) 4 mg NOW STAT IV 10/19/16 22:21 10/19/16 22:24 DC 10/19/16 22:52 4 MG Morphine Sulfate (MoRPHine SULFATE INJ) 4 mg NOW STAT IV 10/20/16 02:24 10/20/16 02:25 DC 10/20/16 02:31 4 MG ED Course Prior records/ancillary studies reviewed. Triage Nursing notes reviewed. The patient's history was concerning for back pain. Differential diagnosis: Etiologies such as musculoskeletal, disc herniation, fracture, aortic disease, metastatic disease, cord compression, discitis, infection, renal colic, gastrointestinal, acute exacerbation of chronic back pain, sciatica, cauda equina, as well as others were entertained. Physical findings: As above. No focal neurologic findings noted. ER treatment provided: Morphine, Zofran On reassessment the patient felt better. Diagnostics interpreted by me: The labs revealed stable H&H. Imaging studies: MRI was reviewed and read by stat radiology. T9 compression fracture This appears to be consistent with T9 compression fracture. No new injury. Patient was neurovascularly and neurologically intact. She is advised to follow -up as scheduled with her orthopedic spine surgeon and family care doctor this week. She is advised to avoid activity to cause pain and take medicines as directed. She is advised to return to the ER immediately for severe pain, numbness, tingling, weakness, fevers, worsening signs or symptoms or as needed. By the evaluation outlined above emergent etiologies such as aortic disease, metastatic disease, infection, renal colic, gastrointestinal, cord compression, cauda equina, as well as others were deemed relatively unlikely. The pt informed about the findings as listed above. All questions were answered and pleased with the treatment. Return instructions were outlined and the patient was discharged in stable condition. Outpatient prescription management: Oxy IR 5mg 1-2 po Q4 hrs prn Referral: The patient was referred back to orthopedic spine and primary care physician for follow-up in 2 to 3 days for a recheck of the current condition. Medical Decision As above Impression Primary Impression: Traumatic compression fracture of T9 thoracic vertebra Departure Information Dispostion Home / Self-Care Condition GOOD Forms HOME CARE DOCUMENTATION FORM, IMPORTANT VISIT INFORMATION Patient Instructions [facility] Additional Instructions DO NOT drive, drink alcohol, operate machinery, or perform dangerous activities today. You were given medications in the ER that can affect your ability to safely function or operate a vehicle. Oxycodone (OxyIR) 5mg: Take 1-2 pills every four hours for breakthrough pain. Avoid alcohol, operating machinery or dangerous equipment, working on ladders or roofs, DRIVING, or situations where being under the influence may be dangerous. It is recommended to use an izvs-zqw-axxmbkj stool softener such as Colace, 100mg twice daily while taking this medication to avoid constipation. Acetaminophen(Tylenol) may be used for fever or pain. Use 1000mg every six hours as needed. Avoid using more than 3000mg in a 24 hour period. This medication can be taken if you need to drive, work, or perform activities which may be dangerous when taking narcotic pain medication. Rest and avoid heavy lifting until your symptoms resolve and then gradually return to full activity. A good rule of thumb is if it hurts your back to perform a certain activity, then it should be avoided until you are healthy again. A heating pad, warm compresses, or a hot shower may help with tight muscles and can be done several times a day as needed. Continue current medications. Return to the ER immediately for any numbness, tingling, severe pain, loss of control of your bowels or bladder, inability to walk, or as needed. Follow up with your primary care physician within 3-5 days for a recheck of your current condition. Keep your appointment as scheduled with orthopedic spine. Problem Qualifiers Primary Impression: Traumatic compression fracture of T9 thoracic vertebra Encounter type: initial encounter Fracture type: closed Qualified Codes: S22.070A - Wedge compression fracture of t9-t10 vertebra, initial encounter for closed fracture
[2016-10-20 02:55] VITALS: BP 120/70; PULSE 64; TEMP 36.8; O2SAT 94
--- NOTE | 2016-10-20 07:15 | DIAGNOSTIC IMAGING REPORT ---
MRI LUMBAR SPINE COMBINATION CLINICAL HISTORY: Severe lower back pain. Foot numbness. History of T9 fracture. TECHNIQUE: Sagittal and axial T1, T2 and STIR images were obtained. Imaging was performed before and after the administration of 9 cc of intravenous Gadavist COMPARISON STUDY: CT scan dated 10/18/2016 OBSERVATIONS: The vertebral bodies and posterior elements appear intact. There is no abnormal bony signal present to suggest a marrow replacement process. L1-2: No disc protrusions or extrusions. No evidence of spinal canal or neural foraminal compromise. L2-3: No disc protrusions or extrusions. No evidence of spinal canal or neural foraminal compromise. L3-4: No disc protrusions or extrusions. No evidence of spinal canal or neural foraminal compromise. L4-5: There is a minor circumferential disc bulge. There is no significant spinal foraminal stenosis L5-S1: No disc protrusions or extrusions. No evidence of spinal canal or neural foraminal compromise. The conus medullaris and cauda equina appear normal. There is no evidence of pathologic enhancement. There is edema within the posterior soft tissues in the midline. IMPRESSION: Minor circumferential disc bulge at the L4-5 level. No focal disc herniations identified. No evidence of spinal or foraminal stenosis. No evidence of fracture. No evidence of pathologic enhancement. Electronically signed by: Jules Lester M.D. 10/20/2016 7:14 AM Dictated Date/Time: 10/20/2016 7:11 AM
--- NOTE | 2016-10-20 07:33 | DIAGNOSTIC IMAGING REPORT ---
THORACIC SPINE COMBO CLINICAL HISTORY: Severe mid back pain. Numbness the hands and feet. History of T9 fracture. COMPARISON STUDY: MRI dated 09/08/2015, CT scan dated 10/18/2016 FINDINGS: Imaging was performed in the sagittal and axial planes, before and after the administration of 9 cc of intravenous Gadavist. The study is mildly compromised secondary to motion artifact. There are no areas of marrow replacement to indicate malignancy. There are mild superior endplate T9 and T11 compression deformities. There is minimal superior T9 endplate edema suggesting this fracture is acute/subacute. There is no canal compromise. There is no evidence of epidural hematoma. No cord lesions are visualized. There is no pathologic enhancement. There is a T10 focal fatty rest/hemangioma. IMPRESSION: 1. Old superior endplate T11 compression deformity 2. Mild acute/subacute superior endplate T9 compression deformity 3. No cord lesions identified 4. No evidence of epidural hematoma. 5. No evidence of canal compromise. Electronically signed by: Jules Lester M.D. 10/20/2016 7:32 AM Dictated Date/Time: 10/20/2016 7:26 AM
[2016-10-30] MEDS ORDERED: FLX5 PO (11:47)
[2016-11-27] MEDS ORDERED: IPRASOL4 NEB (08:31)
[2016-11-27] MEDS ORDERED: PRED10TA PO ×2 (15:15→18:42)
[2016-11-29] MEDS ORDERED: AZIT-57 PO (09:07)
[2016-11-29] MEDS ORDERED: PRD20 PO (09:07)
[2017-02-24] MEDS ORDERED: PRED10TA PO (14:39)
[2017-02-24] MEDS ORDERED: OXGN (14:39)
[2017-02-24] MEDS ORDERED: CMD5 PO (14:39)
[2017-02-24] MEDS ORDERED: ENOX30IN4 SQ (14:40)
[2017-02-24] MEDS ORDERED: AZIT-60 PO (14:52)
[2017-04-08] MEDS ORDERED: VNTHFA/IN INH (08:31)
== END 2016-10-20 02:56 | disposition home or self-care (01) ==
LOC: C.EDB 22:04 → C.EDA 10-20 02:56
DX: S22.079A Unspecified fracture of T9-T10 vertebra, initial encounter for closed fracture (principal); X58.XXXA Exposure to other specified factors, initial encounter; G89.29 Other chronic pain; M54.5 Low back pain; E78.5 Hyperlipidemia, unspecified; K21.9 Gastro-esophageal reflux disease without esophagitis; K57.32 Diverticulitis of large intestine without perforation or abscess without bleeding; F32.9 Major depressive disorder, single episode, unspecified; F41.9 Anxiety disorder, unspecified; M81.0 Age-related osteoporosis without current pathological fracture; J45.909 Unspecified asthma, uncomplicated; Z86.711 Personal history of pulmonary embolism; Z98.890 Other specified postprocedural states; Z87.891 Personal history of nicotine dependence; Z79.899 Other long term (current) drug therapy; Z88.6 Allergy status to analgesic agent; Z88.8 Allergy status to other drugs, medicaments and biological substances; Z91.041 Radiographic dye allergy status; Z82.49 Family history of ischemic heart disease and other diseases of the circulatory system; Z80.9 Family history of malignant neoplasm, unspecified; Z84.1 Family history of disorders of kidney and ureter; Z83.79 Family history of other diseases of the digestive system

== ENCOUNTER 2016-10-29 14:18 | Observation (INO) | payer OTHER ==
[~2016-10-29] VITALS: Ht 165.1 cm; Wt 92.0 kg
[~2016-10-29 14:18] MED LIST changes: -BROM0.0911 OPR; -OXYC1TAB3 PO; -POLY335019 PO; -PRED10TA PO; -PRED1SUS OPR
[2016-10-29] MEDS ORDERED: MoRPHine SULFATE 4 MG/ML 1 ML CARP\\VIAL IV STA (14:50)
--- NOTE | 2016-10-29 14:52 | EMERGENCY ROOM VISIT NOTE ---
History Report prepared by Jean-Pierre: Bora Lombardi Under the Supervision of: Dr. Ashley Rivera D.O. First contact with patient: 14:34 Chief Complaint: RESPIRATORY PROBLEMS Stated Complaint: BACK PAIN & TROUBLE BREATHING Nursing Triage Summary: pt to the with SOB and worsening back pain pt was sent over to be checked for a blood clot History of Present Illness The patient is a 56 year old female who presents to the Emergency Room with complaints of increased lower back pain since yesterday. The patient also complains of increased shortness of breath since yesterday. The patient's symptoms are worse with movement. She has had numbness and tingling in her fingers and toes distally intermittently for several days. She denies any other numbness. The patient describes a band sensation under her chest consistent with her asthma. The patient was diagnosed with a T9 fracture earlier this month. Two years ago she had a T11 fracture. The patient has had an MRI of the entire spine. She denies fevers, chills, cough or cold symptoms, nausea, changes in her bowel movements, other urinary symptoms, or leg swelling. The patient is prescribed Oracle for chronic back pain. She was recently prescribed Oxycodone which she has not taken today. The patient's breathing trouble today is "similar to her asthma yet different." She has a nebulizer. She is a former smoker. Pt states has been admitted to ICU and needed bipap for asthma, hasn't needed intubation. Source of History: patient Onset: yesterday Position: back (lower) Timing: other (increased) Modifying Factors (Worsening): movement Associated Symptoms: + SOB, No fevers, No chills, No cough, No nausea, No urinary symptoms Review of Systems See HPI for pertinent positives & negatives. A total of 10 systems reviewed and were otherwise negative. 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 (14) Microscopic hematuria (15) Osteoporosis (16) Sleep apnea (17) Vertebral fracture, closed Surgical Problems: (1) H/O sinus surgery (2) History of carpal tunnel surgery (3) S/P cardiac cath (4) S/P herniorrhaphy (5) Status post appendectomy (6) Status post hernia repair (7) Status post partial colectomy (8) Status post thermoplasty (9) Status post thermoplasty Family History FH: heart disease FATHER FH: sleep apnea MOTHER FHx: cancer FHx: gallbladder disease Hypertension MOTHER Kidney disease MOTHER Social History Smoking Status: Former Smoker Alcohol Use: none Drug Use: none Housing Status: lives with significant other Current/Historical Medications Scheduled Alendronate Sodium (Fosamax), 70 MG PO WK Cholecalciferol (Vitamin D), 1,000 UNIT PO BID Citalopram Hydrobromide (Celexa), 40 MG PO QAM Cyanocobalamin (Vitamin B-12), 1,000 MCG PO QAM Docusate Sodium (Colace), 200 MG PO HS Furosemide (Furosemide), 40 MG PO Q2D Home O2 Therapy (Oxygen), 2 LITERS NA PRN Immune Globulin (Human) Iv (Privigen), Unknown Dose IV MONTHLY Omeprazole (Prilosec), 20 MG PO BID Prednisone (Prednisone), 10 MG PO DAILY Scheduled PRN Albuterol Hfa (Ventolin Hfa), 2-4 PUFFS INH Q6H PRN for SOB/Wheezing Cyclobenzaprine HCl (Cyclobenzaprine HCl), 5 MG PO HS PRN for Pain Epinephrine (Epipen 2-Deshawn), 0.3 MG IM UD PRN for ALLERGIC REACTION Glimepiride (Glimepiride), 1 TAB PO DAILY PRN for glucose > 110 Hydrocodone/Acetaminophen 5MG/325MG (Oracle 5MG/325MG), 1-2 TABS PO Q4-6H PRN for Pain Ipratropium-Albuterol (Duoneb), 1 TREATMENT INH Q4H PRN for SOB/Wheezing Lorazepam (Ativan), 2 MG PO HS PRN for Anxiety Lorazepam (Lorazepam), 1 MG PO DAILY PRN for Anxiety Oxycodone Ir (Roxicodone Ir), 5 MG PO Q4H PRN for Severe Pain Potassium Chloride (Potassium Chloride Er), 10 MEQ PO Q2D PRN for TAKE ON LASIX DAYS Allergies Coded Allergies: Aspirin (Verified Allergy, Intermediate, HIVES, 10/29/16) Ibuprofen (Verified Allergy, Intermediate, HIVES, 10/29/16) Levofloxacin (Verified Allergy, Intermediate, HIVES, 10/29/16) Iodinated Diagnostic Agents (Verified Allergy, Unknown, HIVES, 10/29/16) Pregabalin (Verified Adverse Reaction, Intermediate, SEVERE DEPRESSION, ) Zolpidem (Verified Adverse Reaction, Intermediate, HALLUCINATIONS, 10/29/16 ) Gabapentin (Verified Adverse Reaction, Mild, GOOFY THOUGHTS, 10/29/16) Physical Exam Vital Signs Date Time Temp Pulse Resp B/P (MAP) Pulse Ox O2 Delivery O2 Flow Rate FiO2 10/29/16 20:54 82 20 146/80 95 Room Air 10/29/16 18:08 63 18 140/78 96 Room Air 10/29/16 16:29 75 18 141/67 100 Room Air 10/29/16 15:35 89 16 97 Room Air 10/29/16 14:21 36.6 64 18 133/82 96 Physical Exam GENERAL: alert, well appearing, well nourished, no distress, non-toxic EYE EXAM: normal conjunctiva, PERRL and EOM's grossly intact OROPHARYNX: no exudate, no erythema, lips, buccal mucosa, and tongue normal and mucous membranes are moist NECK: supple, no nuchal rigidity, no adenopathy, non-tender LUNGS: Breath sounds are diminished. No wheezes rales or rhonchi. HEART: no murmurs, S1 normal and S2 normal ABDOMEN: abdomen soft, non-tender. BACK: Tenderness over the mid lower thoracic spine, no stepoff, no ecchymosis. No CVA tenderness. SKIN: no rashes and no bruising UPPER EXTREMITIES: upper extremities are grossly normal. LOWER EXTREMITIES: No pitting edema. Normal pulses. NEURO EXAM: Normal sensorium, cranial nerves II-XII grossly intact, normal speech, no gross weakness of arms, no gross weakness of legs. Gross sensation intact. Strong bilateral patellar reflexes. Medical Decision & Procedures ER Provider Diagnostic Interpretation: Radiology results have been interpreted by the radiologist and reviewed by me. CHEST ONE VIEW PORTABLE CLINICAL HISTORY: sob dyspnea COMPARISON STUDY: 09/13/2016 FINDINGS: Central catheter in superior vena cava. Lungs are clear. Diaphragms smooth. No evidence for cardiac enlargement. IMPRESSION: Negative chest. Electronically signed by: Vivek Sanders M.D. 10/29/2016 3:10 PM Dictated Date/Time: 10/29/2016 3:10 PM LUNG IMAGING VQ HISTORY: Short of breath. Elevated d-dimer. TECHNIQUE: Immediately following the inhalation of 32 mCi of technetium 99 M DTPA for the ventilation scan and the intravenous injection of 5.7 mCi of technetium 99 M MAA for the perfusion scan, anterior, oblique, posterior, lateral views of the chest were performed. COMPARISON STUDY: Chest 10/29/2016. FINDINGS: A few small matched defects seen within the lung bases. No mismatch defects or larger segmental defects. IMPRESSION: Above findings are consistent with a low probability scan. Electronically signed by: Milton Gonzalez M.D. 10/29/2016 7:31 PM Dictated Date/Time: 10/29/2016 7:25 PM Laboratory Results Test 10/29/16 15:15 Immature Granulocyte % (Auto) 0.1 % White Blood Count 8.94 K/uL (4.8-10.8) Red Blood Count 4.35 M/uL (4.2-5.4) Hemoglobin 9.6 g/dL (12.0-16.0) Hematocrit 32.8 % (37-47) Mean Corpuscular Volume 75.4 fL (80-100) Mean Corpuscular Hemoglobin 22.1 pg (25-34) Mean Corpuscular Hemoglobin Concent 29.3 g/dl (32-36) Platelet Count 245 K/uL (130-400) Mean Platelet Volume 10.3 fL (7.4-10.4) Neutrophils (%) (Auto) 77.8 % Lymphocytes (%) (Auto) 17.1 % Monocytes (%) (Auto) 3.5 % Eosinophils (%) (Auto) 0.6 % Basophils (%) (Auto) 0.9 % Neutrophils # (Auto) 6.96 K/uL (1.4-6.5) Lymphocytes # (Auto) 1.53 K/uL (1.2-3.4) Monocytes # (Auto) 0.31 K/uL (0.11-0.59) Eosinophils # (Auto) 0.05 K/uL (0-0.5) Basophils # (Auto) 0.08 K/uL (0-0.2) Immature Granulocyte # (Auto) 0.01 K/uL (0.00-0.02) D-Dimer 860 ug/L FEU (0-500) Total Bilirubin 0.3 mg/dl (0.2-1) Aspartate Amino Transf (AST/SGOT) 9 U/L (15-37) Alanine Aminotransferase (ALT/SGPT) 20 U/L (12-78) Alkaline Phosphatase 59 U/L (45-117) Troponin I < 0.015 ng/ml (0-0.045) Pro-B-Type Natriuretic Peptide 56 pg/ml (0-900) Total Protein 6.3 gm/dl (6.4-8.2) Albumin 3.3 gm/dl (3.4-5.0) Globulin 3.0 gm/dl (2.5-4.0) Albumin/Globulin Ratio 1.1 (0.9-2) Laboratory results per my review. Medications Administered Medications (Trade) Dose Ordered Sig/Kaye Route Start Time Stop Time Status Last Admin Dose Admin Albuterol/ Ipratropium (Duoneb) 12 ml ONE ONCE INH 10/29/16 15:00 10/29/16 15:01 DC 10/29/16 15:30 12 ML Morphine Sulfate (MoRPHine SULFATE INJ) 4 mg NOW STAT IV 10/29/16 14:50 10/29/16 14:52 DC 10/29/16 15:22 4 MG Lidocaine (Lidoderm Patch 5%) 1 patch NOW STAT TD 10/29/16 16:44 10/29/16 16:47 DC 10/29/16 16:44 1 PATCH Oxycodone HCl (Roxicodone Immediate Rel Tab) 5 mg NOW STAT PO 10/29/16 16:44 10/29/16 16:47 DC 10/29/16 16:58 5 MG Albuterol/ Ipratropium (Duoneb) 3 ml NOW STAT INH 10/29/16 19:20 10/29/16 19:23 DC 10/29/16 19:20 3 ML Methylprednisolone Sodium Succinate (Solu-Medrol IV) 80 mg NOW STAT IV 10/29/16 20:03 10/29/16 20:04 DC 10/29/16 20:27 80 MG ECG Indication: SOB/dyspnea Rate (beats per minute): 54 Rhythm: sinus tachycardia Findings: no acute ischemic change, no ectopy, other (normal axis, normal intervals) ED Course 1438: The patient was evaluated in room A11b. A complete history and physical exam was performed. 1450: Morphine Sulfate 4 mg IV. 1500: DuoNeb 12 ml INH. 1630: Patient's breathing improved after the DuoNeb. Back pain is still present. 1644: Oxycodone 5 mg PO, Lidocaine 1 patch TD. 1920: DuoNeb 3 ml INH. 1950: Reassessed the patient. She feels better after the neb treatments but notes that it wears off. Had an additional bedside discussion about asthma. She has been on BiPAP and been to the ICU but has never been intubated for her asthma. She is not comfortable going home. 2002: Solu-Medrol 80 mg IV. 2032: Discussed the case with Aure Gonsalez [facility]ist. The patient will be evaluated. 2042: Oracle 5/325 mg PO. Medical Decision Differential diagnoses includes but is not limited to pneumonia, bronchitis, COPD/Asthma exacerbation, pneumothorax, pulmonary embolism, congestive heart failure, acute coronary syndrome Blood pressure screening: Patient was found to have an elevated blood pressure which may be situational and related to pain, and was referred to their primary doctor for recheck and further treatment. Medication Reconciliation: I attest that I have personally reviewed the patient' s current medication list. Pt with known and chronic back pain due to compression fractures, here today with worsening SOB. Pt concerned for etiology other than her asthma. Feels her pain is contributing to her SOB. No evidence of acs, chf, pe, pain improved here and breathing improved with nebs. Pt concerned given hx of asthma and need for prior hospitalizations due to severity. Pt not hypoxic here , discussed nebs, pt on chronic steroids. Pt admitted for continued nebs tx and evaluation. Consults Time Called: 2024 Consulting Physician: Aure Gonsalez Hospitalist. Returned Call: 2032 The patient will be evaluated. Impression Primary Impression: Asthma exacerbation Additional Impressions: Compression fracture Back pain Chronic anemia Scribe Attestation The scribe's documentation has been prepared under my direction and personally reviewed by me in its entirety. I confirm that the note above accurately reflects all work, treatment, procedures, and medical decision making performed by me. Departure Information Dispostion Being Evaluated By Hospitalist Prescriptions Cyclobenzaprine HCl (Cyclobenzaprine HCl) 5 Mg Tab 5 MG PO HS Y for Pain for 5 Days, #5 TABS Prov: Obed Nguyen, 10/30/16 Referrals Petra Kelly (PCP) Patient Instructions My [facility] Problem Qualifiers Additional Impressions: Back pain Back pain location: thoracic back pain Chronicity: chronic Back pain laterality: midline Qualified Codes: M54.6 - Pain in thoracic spine; G89.29 - Other chronic pain
[2016-10-29] MEDS ORDERED: ALBUT/IPRATROP 3MG/0.5MG NEB 3 ML VIAL INH ONE (15:00)
--- NOTE | 2016-10-29 15:11 | DIAGNOSTIC IMAGING REPORT ---
CHEST ONE VIEW PORTABLE CLINICAL HISTORY: sob dyspnea COMPARISON STUDY: 09/13/2016 FINDINGS: Central catheter in superior vena cava. Lungs are clear. Diaphragms smooth. No evidence for cardiac enlargement. IMPRESSION: Negative chest. Electronically signed by: Vivek Sanders M.D. 10/29/2016 3:10 PM Dictated Date/Time: 10/29/2016 3:10 PM
[2016-10-29 15:25] LABS: BASO % 0.9 %; BASO ABS # 0.08 K/uL (0-0.2); COMPLETE YES; EOS % 0.6 %; HEMATOCRIT 32.8 % (37-47); IG% 0.1 %; LYMPH % 17.1 %; LYMPH ABS # 1.53 K/uL (1.2-3.4); MEAN CELL VOLUME 75.4 fL (80-100); MEAN CORPUSCULAR HEMOGLOBIN 22.1 pg (25-34); MEAN CORPUSCULAR HGB CONC 29.3 g/dl (32-36); MEAN PLATELET VOLUME 10.3 fL (7.4-10.4); MONO % 3.5 %; NEUT % 77.8 %; PLATELET COUNT 245 K/uL (130-400); RED BLOOD COUNT 4.35 M/uL (4.2-5.4); WHITE BLOOD COUNT 8.94 K/uL (4.8-10.8)
[2016-10-29 15:35] VITALS: PULSE 89; O2SAT 97
[2016-10-29 15:50] LABS: ALT/SGPT 20 U/L (12-78); AST/SGOT 9 U/L (15-37); BLOOD UREA NITROGEN 15 mg/dl (7-18); BUN/CREATININE RATIO 18.3 (10-20); CALCIUM 8.4 mg/dl (8.5-10.1); CARBON DIOXIDE 30 mmol/L (21-32); CHLORIDE 107 mmol/L (98-107); CREATININE 0.82 mg/dl (0.60-1.20); GLUCOSE 100 mg/dl (70-99); POTASSIUM 4.2 mmol/L (3.5-5.1); SODIUM 143 mmol/L (136-145)
[2016-10-29 15:55] LABS: ALB/GLOB RATIO 1.1 (0.9-2); ALKALINE PHOSPHATASE 59 U/L (45-117)
[2016-10-29] MEDS ORDERED: LIDODERM (LIDOCAINE) PATCH 5% TD STA (16:44)
[2016-10-29] MEDS ORDERED: OXYCODONE HCL IR 5 MG TAB (IMMEDIATE RELEASE) PO STA (16:44)
[2016-10-29] MEDS ORDERED: ALBUT/IPRATROP 3MG/0.5MG NEB 3 ML VIAL INH STA (19:20)
--- NOTE | 2016-10-29 19:32 | DIAGNOSTIC IMAGING REPORT ---
LUNG IMAGING VQ HISTORY: Short of breath. Elevated d-dimer. TECHNIQUE: Immediately following the inhalation of 32 mCi of technetium 99 M DTPA for the ventilation scan and the intravenous injection of 5.7 mCi of technetium 99 M MAA for the perfusion scan, anterior, oblique, posterior, lateral views of the chest were performed. COMPARISON STUDY: Chest 10/29/2016. FINDINGS: A few small matched defects seen within the lung bases. No mismatch defects or larger segmental defects. IMPRESSION: Above findings are consistent with a low probability scan. Electronically signed by: Milton Gonzalez M.D. 10/29/2016 7:31 PM Dictated Date/Time: 10/29/2016 7:25 PM
[2016-10-29] MEDS ORDERED: METHYLPREDNISOLONE 125 MG VIAL IV STA (20:03)
[2016-10-29] MEDS ORDERED: HYDROCODONE/ACETAMOPHEN 5/325MG TAB PO STA (20:43)
[2016-10-29] MEDS ORDERED: ONDANSETRON INJ 2 MG/ML 2 ML VIAL IV PRN (21:00)
[2016-10-29] MEDS ORDERED: ACETAMINOPHEN 325 MG TAB PO PRN (21:00)
[2016-10-29] MEDS ORDERED: OXYC1TAB3 PO (21:02)
[2016-10-29] MEDS ORDERED: HYDROCODONE/ACETAMOPHEN 5/325MG TAB PO PRN (21:15)
[2016-10-29] MEDS ORDERED: LORAZEPAM 1 MG TAB PO PRN ×2 (21:15)
[2016-10-29] MEDS ORDERED: IV FLUIDS COMPLETED PRN (21:30)
--- NOTE | 2016-10-29 21:30 | History and Physical ---
History & Physical Date & Time of Service: Oct 29, 2016 at ~ 20:45 Chief Complaint: Shortness of Breath, Back Pain Primary Care Physician: Petra Kelly History of Present Illness 56 year old female who presents to the ER with shortness of breath and back pain. Patient has a long standing history of asthma and chronic back pain for which she has had multiple admissions in the past. Patient has history of chronic back pain due to compressions fractures. Patient suffered an acute T9 compression fracture a couple of weeks ago. She has been following with spine orthopedics who gave her oxycodone to take in addition to the Avella she had already been on. She reports continues to be severe at times. Also noted patient self stopped her routine inhalers and is only taking prednisone and rescue inhaler for her asthma. She reports she noted increased shortness of breath and wheezing yesterday. She denies cough, sputum production, fever, or chills. No chest pain or palpitations. She denies lightheadedness, dizziness, diaphoresis, and syncope. No abdominal pain, nausea, vomiting, or diarrhea. She denies urinary symptoms. In the ER, patient is saturating well on room air. VQ scan was negative for PE, CXR negative for pneumonia. She was given neb x 2, solumedrol, oxycodone, morphine, and Avella. 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 Status: Chronic (14) Microscopic hematuria Permanent Comment: evaluated by Urology; no significant path per patient Status: Chronic (15) Osteoporosis Status: Chronic (16) Sleep apnea Status: Chronic (17) Vertebral fracture, closed Status: Chronic Surgical Problems: (1) H/O sinus surgery Status: Chronic (2) History of carpal tunnel surgery Status: Chronic (3) S/P cardiac cath Status: Chronic (4) S/P herniorrhaphy Status: Chronic (5) Status post appendectomy Status: Chronic (6) Status post hernia repair Status: Chronic (7) Status post partial colectomy Status: Chronic (8) Status post thermoplasty Status: Chronic (9) Status post thermoplasty Status: Chronic Family History FH: heart disease FATHER FH: sleep apnea MOTHER FHx: cancer FHx: gallbladder disease Hypertension MOTHER Kidney disease MOTHER Social History Smoking Status: Former Smoker Alcohol Use: none Immunizations History of Influenza Vaccine: Yes Influenza Vaccine Date: Jan 25, 2016 History of Tetanus Vaccine?: Yes Tetanus Immunization Date: Aug 16, 2007 History of Pneumococcal: Yes Pneumococcal Date: Jan 02, 2016 Allergies Coded Allergies: Aspirin (Verified Allergy, Intermediate, HIVES, 10/29/16) Ibuprofen (Verified Allergy, Intermediate, HIVES, 10/29/16) Levofloxacin (Verified Allergy, Intermediate, HIVES, 10/29/16) Iodinated Diagnostic Agents (Verified Allergy, Unknown, HIVES, 10/29/16) Pregabalin (Verified Adverse Reaction, Intermediate, SEVERE DEPRESSION, ) Zolpidem (Verified Adverse Reaction, Intermediate, HALLUCINATIONS, 10/29/16 ) Gabapentin (Verified Adverse Reaction, Mild, GOOFY THOUGHTS, 10/29/16) Home Medications Scheduled Alendronate Sodium (Fosamax), 70 MG PO WK Cholecalciferol (Vitamin D), 1,000 UNIT PO BID Citalopram Hydrobromide (Celexa), 40 MG PO QAM Cyanocobalamin (Vitamin B-12), 1,000 MCG PO QAM Docusate Sodium (Colace), 200 MG PO HS Furosemide (Furosemide), 40 MG PO Q2D Home O2 Therapy (Oxygen), 2 LITERS NA PRN Immune Globulin (Human) Iv (Privigen), Unknown Dose IV MONTHLY Omeprazole (Prilosec), 20 MG PO BID Prednisone (Prednisone), 10 MG PO DAILY Scheduled PRN Albuterol Hfa (Ventolin Hfa), 2-4 PUFFS INH Q6H PRN for SOB/Wheezing Cyclobenzaprine HCl (Cyclobenzaprine HCl), 5 MG PO HS PRN for Pain Epinephrine (Epipen 2-Deshawn), 0.3 MG IM UD PRN for ALLERGIC REACTION Glimepiride (Glimepiride), 1 TAB PO DAILY PRN for glucose > 110 Hydrocodone/Acetaminophen 5MG/325MG (Avella 5MG/325MG), 1-2 TABS PO Q4-6H PRN for Pain Ipratropium-Albuterol (Duoneb), 1 TREATMENT INH Q4H PRN for SOB/Wheezing Lorazepam (Ativan), 2 MG PO HS PRN for Anxiety Lorazepam (Lorazepam), 1 MG PO DAILY PRN for Anxiety Oxycodone Ir (Roxicodone Ir), 5 MG PO Q4H PRN for Severe Pain Potassium Chloride (Potassium Chloride Er), 10 MEQ PO Q2D PRN for TAKE ON LASIX DAYS Review of Systems ROS per HPI, all other systems reviewed and negative Physical Exam Vital Signs Date Time Temp Pulse Resp B/P (MAP) Pulse Ox O2 Delivery O2 Flow Rate FiO2 10/29/16 20:54 82 20 146/80 95 Room Air 10/29/16 18:08 63 18 140/78 96 Room Air 10/29/16 16:29 75 18 141/67 100 Room Air 10/29/16 15:35 89 16 97 Room Air 10/29/16 14:21 36.6 64 18 133/82 96 General Appearance: no apparent distress Head: normocephalic Eyes: normal inspection ENT: hearing grossly normal Neck: supple, no JVD Respiratory/Chest: lungs clear, no respiratory distress, + wheezing (occasional , faint expiratory noted in upper anterior lung mccain) Cardiovascular: regular rate, rhythm, no edema, normal peripheral pulses Abdomen/GI: normal bowel sounds, non tender, soft Extremities/Musculoskelatal: normal inspection, no calf tenderness Neurologic/Psych: no motor/sensory deficits, alert, normal mood/affect, oriented x 3 Skin: normal color, warm/dry Diagnostics Laboratory Results Results Past 24 Hours Test 10/29/16 15:15 Range/Units White Blood Count 8.94 4.8-10.8 K/uL Red Blood Count 4.35 4.2-5.4 M/uL Hemoglobin 9.6 12.0-16.0 g/dL Hematocrit 32.8 37-47 % Mean Corpuscular Volume 75.4 80-100 fL Mean Corpuscular Hemoglobin 22.1 25-34 pg Mean Corpuscular Hemoglobin Concent 29.3 32-36 g/dl Platelet Count 245 130-400 K/uL Mean Platelet Volume 10.3 7.4-10.4 fL Neutrophils (%) (Auto) 77.8 % Lymphocytes (%) (Auto) 17.1 % Monocytes (%) (Auto) 3.5 % Eosinophils (%) (Auto) 0.6 % Basophils (%) (Auto) 0.9 % Neutrophils # (Auto) 6.96 1.4-6.5 K/uL Lymphocytes # (Auto) 1.53 1.2-3.4 K/uL Monocytes # (Auto) 0.31 0.11-0.59 K/uL Eosinophils # (Auto) 0.05 0-0.5 K/uL Basophils # (Auto) 0.08 0-0.2 K/uL RDW Standard Deviation 52.4 36.4-46.3 fL RDW Coefficient of Variation 18.9 11.5-14.5 % Immature Granulocyte % (Auto) 0.1 % Immature Granulocyte # (Auto) 0.01 0.00-0.02 K/uL D-Dimer 860 0-500 ug/L FEU Sodium Level 143 136-145 mmol/L Potassium Level 4.2 3.5-5.1 mmol/L Chloride Level 107 98-107 mmol/L Carbon Dioxide Level 30 21-32 mmol/L Anion Gap 6.0 3-11 mmol/L Blood Urea Nitrogen 15 7-18 mg/dl Creatinine 0.82 0.60-1.20 mg/dl Est Creatinine Clear Calc Drug Dose 84.8 ml/min Estimated GFR () 92.1 Estimated GFR (Non- 79.4 BUN/Creatinine Ratio 18.3 10-20 Random Glucose 100 70-99 mg/dl Calcium Level 8.4 8.5-10.1 mg/dl Total Bilirubin 0.3 0.2-1 mg/dl Aspartate Amino Transf (AST/SGOT) 9 15-37 U/L Alanine Aminotransferase (ALT/SGPT) 20 12-78 U/L Alkaline Phosphatase 59 45-117 U/L Troponin I < 0.015 0-0.045 ng/ml Pro-B-Type Natriuretic Peptide 56 0-900 pg/ml Total Protein 6.3 6.4-8.2 gm/dl Albumin 3.3 3.4-5.0 gm/dl Globulin 3.0 2.5-4.0 gm/dl Albumin/Globulin Ratio 1.1 0.9-2 Diagnostic Radiology CXR IMPRESSION: Negative chest. VQ SCAN IMPRESSION: Above findings are consistent with a low probability scan. 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 Attending Addendum Pt was seen and examined. Agreed with Courtney NICHOLAS assessment and plan. 56 year old female with PMH of Asthma, on chronic steroid, osteoporosis presents to the ER with C/O shortness of breath and back pain. Patient has a long standing history of asthma and chronic back pain for which she has had multiple admissions in the past. Patient has history of chronic back pain due to compressions fractures. She reports she noted increased shortness of breath and wheezing yesterday. She denies any cough,fever,chills, chest pain or palpitations. General- No acute distress Head- atraumatic Eyes- PERRL, EOMI ENT- oropharynx clear Neck- supple, no JVD Lungs- +very mild wheezing Heart- regular rhythm; no murmur A/P WORSENING SOB - Possible related to asthma exacerbation - no cough or sputum production, afebrile, saturating well on room air - Non compliant with Symbicort, Spiriva, and zafirlukast - on chronic prednisone 10mg daily - will increase to 40mg x 5 days - no signs of infection so will hold on antibiotics - around the clock nebs Lab, EKG and Imaging reviewed Please refer to Courtney NICHOLAS documentation for other problems. Debbie Santiago MD VTE Prophylaxis VTE Risk Assessment Done? Y/N: Yes Risk Level: Moderate
[2016-10-29] MEDS: HYDROCODONE/ACETAMOPHEN 5/325MG TAB PO PRN (21:32)
[2016-10-29 22:01] VITALS: BP 116/63; PULSE 67; TEMP 36.6; O2SAT 97
[2016-10-29 22:43] VITALS: Ht 165.1 cm; Wt 92.0 kg
[2016-10-29 23:35] VITALS: BP 113/55; TEMP 36.6; O2SAT 93
[2016-10-29] MEDS: OXYCODONE HCL IR 5 MG TAB (IMMEDIATE RELEASE) PO PRN (23:36)
[2016-10-29 23:56] VITALS: PULSE 67; O2SAT 97
[2016-10-30] MEDS: OXYCODONE HCL IR 5 MG TAB (IMMEDIATE RELEASE) PO PRN ×2 (04:23→11:50)
[2016-10-30 05:28] LABS: HEMATOCRIT 33.2 % (37-47); MEAN CELL VOLUME 76.3 fL (80-100); MEAN CORPUSCULAR HEMOGLOBIN 21.4 pg (25-34); MEAN PLATELET VOLUME 10.6 fL (7.4-10.4); PLATELET COUNT 263 K/uL (130-400); RED BLOOD COUNT 4.35 M/uL (4.2-5.4); WHITE BLOOD COUNT 8.33 K/uL (4.8-10.8)
[2016-10-30 05:45] LABS: BUN/CREATININE RATIO 20.5 (10-20); CALCIUM 8.7 mg/dl (8.5-10.1); CREATININE 0.92 mg/dl (0.60-1.20); POTASSIUM 4.6 mmol/L (3.5-5.1)
[2016-10-30] MEDS: ALBUT/IPRATROP 3MG/0.5MG NEB 3 ML VIAL INH SCH ×2 (07:32→11:23)
[2016-10-30 07:33] VITALS: PULSE 80; O2SAT 92
[2016-10-30] MEDS ORDERED: FUROSEMIDE 40 MG TAB PO SCH (08:00)
[2016-10-30] MEDS ORDERED: CITALOPRAM 40 MG TAB PO SCH (08:00)
[2016-10-30] MEDS ORDERED: CYANOCOBALAMIN 500 MCG TAB (VIT B-12) PO SCH (08:00)
[2016-10-30] MEDS ORDERED: POTASSIUM CHLORIDE 10 MEQ TABCR PO SCH (08:00)
[2016-10-30] MEDS ORDERED: ENOXAPARIN 40 MG/0.4 ML SYR SQ SCH (08:00)
[2016-10-30] MEDS ORDERED: PANTOprazole SOD 40 MG TAB PO SCH (08:00)
[2016-10-30] MEDS ORDERED: CHOLECALCIFEROL 1000 INTER.UNIT TAB PO SCH (08:00)
[2016-10-30 08:04] VITALS: BP 117/73; PULSE 57; TEMP 36.6; O2SAT 92
[2016-10-30] MEDS: HYDROCODONE/ACETAMOPHEN 5/325MG TAB PO PRN (09:24)
[2016-10-30 11:23] VITALS: PULSE 72; O2SAT 95
--- NOTE | 2016-10-30 11:43 | Progress Note ---
Subjective Date of Service: Oct 30, 2016. Subjective Pt evaluation today including: conversation w/ patient, physical exam, lab review, review of studies, review of inpatient medication list Saw/examined the patient in room 456 Doing better today Breathing is stable Back Pain persists - but is chronic - improved with rest and medications Problem List Medical Problems: (1) Acute asthma exacerbation Status: Acute (2) Acute asthma exacerbation Status: Acute (3) Asthma exacerbation Status: Acute (4) Asthma exacerbation Status: Acute (5) Asthma exacerbation Status: Acute (6) Asthma with exacerbation Status: Acute (7) Asthma with exacerbation Status: Acute (8) Asthmatic bronchitis with acute exacerbation Status: Acute (9) Bronchitis Status: Acute (10) Bronchospasm Status: Acute (11) Chronic anemia Status: Acute (12) Chronic anemia Status: Chronic (13) Closed fracture of T9 vertebra Status: Acute (14) Elevated d-dimer Status: Acute (15) Hypoxia Status: Acute (16) Hypoxia Status: Acute (17) Hypoxia Status: Acute (18) Hypoxia Status: Acute (19) Hypoxia Status: Acute (20) Pneumonia Status: Acute (21) Reactive airway disease Status: Acute (22) Traumatic compression fracture of T9 thoracic vertebra Status: Acute Surgical Problems: (1) Status post thermoplasty Status: Chronic Review of Systems Constitutional: No fever, No chills, No weakness Respiratory: + shortness of breath, No cough, No sputum, No wheezing, No dyspnea on exertion Cardiac: No chest pain, No edema, No palpitations Abdomen: No pain, No nausea, No vomiting, No diarrhea Musculoskeletal: + joint pain (back pain) Medications Current Inpatient Medications Medications (Trade) Dose Ordered Sig/Kaye Route Start Time Stop Time Status Last Admin Dose Admin Enoxaparin Sodium (Lovenox Inj) 40 mg Q24H SQ 10/30/16 08:00 11/29/16 07:59 Acetaminophen (Tylenol Tab) 650 mg Q4H PRN PO 10/29/16 21:00 11/28/16 20:59 Ondansetron HCl (Zofran Inj) 4 mg Q6H PRN IV 10/29/16 21:00 11/28/16 20:59 Prednisone (PredniSONE TAB) 40 mg DAILY PO 10/30/16 08:00 11/03/16 08:01 10/30/16 07:46 40 MG Albuterol/ Ipratropium (Duoneb) 3 ml QIDR INH 10/30/16 08:00 11/29/16 07:59 10/30/16 07:32 3 ML Cholecalciferol (Vitamin D Tab) 1,000 inter.unit BID PO 10/30/16 08:00 11/29/16 08:59 10/30/16 07:47 1,000 INTER.UNIT Citalopram Hydrobromide (celeXA TAB) 40 mg QAM PO 10/30/16 08:00 11/29/16 08:59 10/30/16 07:46 40 MG Cyanocobalamin (Vitamin B-12 Tab) 1,000 mcg QAM PO 10/30/16 08:00 11/29/16 08:59 10/30/16 07:46 1,000 MCG Docusate Sodium (coLACE CAP) 200 mg HS PO 10/30/16 21:00 11/29/16 20:59 Furosemide (Lasix Tab) 40 mg Q48H PO 10/30/16 08:00 11/29/16 07:59 10/30/16 07:45 40 MG Lorazepam (Ativan Tab) 1 mg DAILY PRN PO 10/29/16 21:15 11/28/16 21:14 Lorazepam (Ativan Tab) 2 mg HS PRN PO 10/29/16 21:15 11/28/16 21:14 Oxycodone HCl (Roxicodone Immediate Rel Tab) 5 mg Q4H PRN PO 10/29/16 21:15 11/12/16 21:14 10/30/16 04:23 5 MG Pantoprazole Sodium (Protonix Tab) 40 mg BID PO 10/30/16 08:00 11/29/16 08:59 10/30/16 07:47 40 MG Potassium Chloride (Klor-Con M10) 10 meq Q48H PO 10/30/16 08:00 11/29/16 07:59 10/30/16 07:45 10 MEQ Acetaminophen/ Hydrocodone Bitart ([place] 5/325 Tab) 2 tab Q6H PRN PO 10/29/16 21:15 11/12/16 21:14 10/30/16 09:24 2 TAB Miscellaneous (Iv Fluids Completed) 1 ea PRN PRN N/A 10/29/16 21:30 10/29/17 21:29 Heparin Sodium (Porcine) (Heparin 100 Unit/ml 5ml Flush) 5 ml PRN PRN IV 10/30/16 00:45 11/29/16 00:44 10/30/16 04:59 5 ML Objective Vital Signs Date Time Temp Pulse Resp B/P (MAP) Pulse Ox O2 Delivery O2 Flow Rate FiO2 10/30/16 08:04 36.6 57 16 117/73 (88) 92 BiPAP 10/30/16 08:00 Room Air 10/30/16 07:33 80 16 92 Room Air 10/30/16 00:00 Room Air 10/29/16 23:56 67 97 10/29/16 23:35 36.6 16 113/55 (74) 93 Room Air 10/29/16 22:43 Room Air 10/29/16 22:01 36.6 67 18 116/63 (80) 97 Room Air 10/29/16 22:00 Room Air 10/29/16 21:36 79 18 140/75 98 10/29/16 20:54 82 20 146/80 95 Room Air 10/29/16 18:08 63 18 140/78 96 Room Air 10/29/16 16:29 75 18 141/67 100 Room Air 10/29/16 15:35 89 16 97 Room Air 10/29/16 14:21 36.6 64 18 133/82 96 Physical Exam General Appearance: no apparent distress Respiratory/Chest: chest non-tender, lungs clear, normal breath sounds, no respiratory distress, no accessory muscle use Cardiovascular: regular rate, rhythm, no edema, no murmur Abdomen: normal bowel sounds, non tender, soft Extremities: normal inspection, no pedal edema, + pertinent finding (painful back ROM; extension/flexion) Neurologic/Psychiatric: no motor/sensory deficits, alert, normal mood/affect Laboratory Results Last 24 Hours Test 10/29/16 15:15 10/30/16 05:00 10/30/16 07:49 White Blood Count 8.94 K/uL 8.33 K/uL Red Blood Count 4.35 M/uL 4.35 M/uL Hemoglobin 9.6 g/dL 9.3 g/dL Hematocrit 32.8 % 33.2 % Mean Corpuscular Volume 75.4 fL 76.3 fL Mean Corpuscular Hemoglobin 22.1 pg 21.4 pg Mean Corpuscular Hemoglobin Concent 29.3 g/dl 28.0 g/dl Platelet Count 245 K/uL 263 K/uL Mean Platelet Volume 10.3 fL 10.6 fL Neutrophils (%) (Auto) 77.8 % Lymphocytes (%) (Auto) 17.1 % Monocytes (%) (Auto) 3.5 % Eosinophils (%) (Auto) 0.6 % Basophils (%) (Auto) 0.9 % Neutrophils # (Auto) 6.96 K/uL Lymphocytes # (Auto) 1.53 K/uL Monocytes # (Auto) 0.31 K/uL Eosinophils # (Auto) 0.05 K/uL Basophils # (Auto) 0.08 K/uL RDW Standard Deviation 52.4 fL 53.5 fL RDW Coefficient of Variation 18.9 % 19.1 % Immature Granulocyte % (Auto) 0.1 % Immature Granulocyte # (Auto) 0.01 K/uL D-Dimer 860 ug/L FEU Sodium Level 143 mmol/L 143 mmol/L Potassium Level 4.2 mmol/L 4.6 mmol/L Chloride Level 107 mmol/L 106 mmol/L Carbon Dioxide Level 30 mmol/L 30 mmol/L Anion Gap 6.0 mmol/L 7.0 mmol/L Blood Urea Nitrogen 15 mg/dl 19 mg/dl Creatinine 0.82 mg/dl 0.92 mg/dl Est Creatinine Clear Calc Drug Dose 84.8 ml/min 75.6 ml/min Estimated GFR () 92.1 80.1 Estimated GFR (Non- 79.4 69.1 BUN/Creatinine Ratio 18.3 20.5 Random Glucose 100 mg/dl 158 mg/dl Calcium Level 8.4 mg/dl 8.7 mg/dl Total Bilirubin 0.3 mg/dl Aspartate Amino Transf (AST/SGOT) 9 U/L Alanine Aminotransferase (ALT/SGPT) 20 U/L Alkaline Phosphatase 59 U/L Troponin I < 0.015 ng/ml Pro-B-Type Natriuretic Peptide 56 pg/ml Total Protein 6.3 gm/dl Albumin 3.3 gm/dl Globulin 3.0 gm/dl Albumin/Globulin Ratio 1.1 Bedside Glucose 114 mg/dl Assessment and Plan This is a pleasant 56 year old female with a PMH of persistent asthma on chronic steroid use, multiple compression fractures, depression/anxiety presents with back pain and shortness of breath Asthma in no exacerbation no wheezing, respiratory distress - she states she is at baseline should be on maintenance inhalers, but is refusing continue chronic steroids and rescue inhaler for now follow-up with PCP on November 05 @ 10AM Acute T9 Compression Fracture likely related to chronic steroid use has seen Dr. Sadler, orthopedic, as outpatient was given pain medications; and is to follow-up next week; this is a non- surgical fracture Depression/Anxiety continue current medications could consider Cymbalta for neuropathic pain as outpatient DVT ppx Lovenox FULL CODE
--- NOTE | 2016-10-30 11:46 | Discharge Instructions ---
Discharge Instructions Date of Service Oct 30, 2016. Admission Reason for Admission: Asthma Exacerbation Discharge Discharge Diagnosis / Problem: Mild Asthma Exacerbation, Chronic Back Pain, Acute T9 Fracture Discharge Goals Goal(s): Decrease discomfort, Improve function, Diagnostic testing, Therapeutic intervention Activity Recommendations Activity Limitations: resume your previous activity . Instructions / Follow-Up Instructions / Follow-Up Please follow-up with PCP on November 05 @ 10:00AM Please follow-up with Dr. Sadler, orthopedics, as scheduled You should see an outpatient pain management doctor Current Hospital Diet Patient's current hospital diet: Diabetes Type 2 Diet Discharge Diet Recommended Diet: Diabetes Type 2 Diet Pending Studies Studies pending at discharge: no Medical Emergencies . Who to Call and When: Medical Emergencies: If at any time you feel your situation is an emergency, please call 911 immediately. . Non-Emergent Contact Non-Emergency issues call your: Primary Care Provider . . "Provider Documentation" section prepared by Obed Nguyen. . VTE Core Measure Inpt VTE Proph given/why not?: Enoxaparin (Lovenox)SQ
[2016-10-30] MEDS ORDERED: FLX5 PO (11:47)
--- NOTE | 2016-10-30 11:49 | Discharge Summary ---
Discharge Summary Date of Service Oct 30, 2016. Discharge Summary Admission Date: Oct 29, 2016 at 20:58 Discharge Date: Oct 30, 2016 Discharge Disposition: Home Principal Diagnosis: Mild Asthma Exacerbation Chronic Back pain Acute T9 Compression Fracture Medication Reconciliation New Medications: Cyclobenzaprine HCl (Cyclobenzaprine HCl) 5 Mg Tab 5 MG PO HS PRN for Pain for 5 Days, #5 TABS Continued Medications: Albuterol Hfa (Ventolin Hfa) 200 Puffs/46420 Mcg Aers 2-4 PUFFS INH Q6H PRN for SOB/Wheezing Alendronate Sodium (Fosamax) 70 Mg Tab 70 MG PO WK, TAB TAKE THIS MEDICATION EVERY FRIDAY. Cholecalciferol (Vitamin D) 1,000 Unit Tab 1000 UNIT PO BID Citalopram Hydrobromide (Celexa) 40 Mg Tab 40 MG PO QAM Cyanocobalamin (Vitamin B-12) 1,000 Mcg Tab 1000 MCG PO QAM, TAB Docusate Sodium (Colace) 100 Mg Cap 200 MG PO HS, CAP Epinephrine (Epipen 2-Deshawn) 0.3 Mg Inj 0.3 MG IM UD PRN for ALLERGIC REACTION Furosemide (Furosemide) 40 Mg Tab 40 MG PO Q2D Glimepiride (Glimepiride) 1 Mg Tab 1 TAB PO DAILY PRN for glucose > 110 USUALLY NEEDS WHEN ON SOLUMEDROL. Home O2 Therapy (Oxygen) Gas 2 LITERS NA PRN Hydrocodone/Acetaminophen 5MG/325MG ([place] 5MG/325MG) Tab 1-2 TABS PO Q4-6H PRN for Pain, TAB Immune Globulin (Human) Iv (Privigen) 5 Gm/50 Ml Inj Unknown Dose IV MONTHLY USUALLY GIVEN THE BEGINNING MONTH Ipratropium-Albuterol (Duoneb) 3 Ml Nebu 1 TREATMENT INH Q4H PRN for SOB/Wheezing Lorazepam (Ativan) 1 Mg Tab 2 MG PO HS PRN for Anxiety, TAB Lorazepam (Lorazepam) 1 Mg Tab 1 MG PO DAILY PRN for Anxiety Omeprazole (Prilosec) 20 Mg Cap 20 MG PO BID Oxycodone Ir (Roxicodone Ir) 5 Mg Tab 5 MG PO Q4H PRN for Severe Pain, TAB Potassium Chloride (Potassium Chloride Er) 10 Meq Tab 10 MEQ PO Q2D PRN for TAKE ON LASIX DAYS pt states when taking lasix Prednisone (Prednisone) 10 Mg Tab 10 MG PO DAILY, TAB Admission Information HPI (per Admitting provider): 56 year old female who presents to the ER with shortness of breath and back pain. Patient has a long standing history of asthma and chronic back pain for which she has had multiple admissions in the past. Patient has history of chronic back pain due to compressions fractures. Patient suffered an acute T9 compression fracture a couple of weeks ago. She has been following with spine orthopedics who gave her oxycodone to take in addition to the [place] she had already been on. She reports continues to be severe at times. Also noted patient self stopped her routine inhalers and is only taking prednisone and rescue inhaler for her asthma. She reports she noted increased shortness of breath and wheezing yesterday. She denies cough, sputum production, fever, or chills. No chest pain or palpitations. She denies lightheadedness, dizziness, diaphoresis, and syncope. No abdominal pain, nausea, vomiting, or diarrhea. She denies urinary symptoms. In the ER, patient is saturating well on room air. VQ scan was negative for PE, CXR negative for pneumonia. She was given neb x 2, solumedrol, oxycodone, morphine, and [place]. Physical Exam (per Admitting): General Appearance: no apparent distress Head: normocephalic Eyes: normal inspection ENT: hearing grossly normal Neck: supple, no JVD Respiratory/Chest: lungs clear, no respiratory distress, + wheezing ( occasional, faint expiratory noted in upper anterior lung mccain) Cardiovascular: regular rate, rhythm, no edema, normal peripheral pulses Abdomen/GI: normal bowel sounds, non tender, soft Extremities/Musculoskelatal: normal inspection, no calf tenderness Neurologic/Psych: no motor/sensory deficits, alert, normal mood/affect, oriented x 3 Skin: normal color, warm/dry Hospital Course This is a pleasant 56 year old female with a PMH of persistent asthma on chronic steroid use, multiple compression fractures, depression/anxiety presents with back pain and shortness of breath Asthma in no exacerbation no wheezing, respiratory distress - she states she is at baseline should be on maintenance inhalers, but is refusing continue chronic steroids and rescue inhaler for now follow-up with PCP on November 05 @ 10AM Acute T9 Compression Fracture likely related to chronic steroid use has seen Dr. Sadler, orthopedic, as outpatient was given pain medications; and is to follow-up next week; this is a non- surgical fracture Depression/Anxiety continue current medications could consider Cymbalta for neuropathic pain as outpatient DVT ppx Lovenox FULL CODE Total time spent on discharge = 25 minutes This includes examination of the patient, discharge planning, medication reconciliation, and communication with other providers. Discharge Instructions Please follow-up with PCP on November 05 @ 10:00AM Please follow-up with Dr. Sadler, orthopedics, as scheduled You should see an outpatient pain management doctor
[2016-10-30 11:58] VITALS: BP 117/73; PULSE 72; TEMP 36.6; O2SAT 95
[2016-10-30] MEDS ORDERED: DOCUSATE SODIUM 100 MG CAP PO SCH (21:00)
[2016-11-27] MEDS ORDERED: IPRASOL4 NEB (08:31)
[2016-11-27] MEDS ORDERED: PRED10TA PO ×2 (15:15→18:42)
[2016-11-29] MEDS ORDERED: AZIT-57 PO (09:07)
[2016-11-29] MEDS ORDERED: PRD20 PO (09:07)
[2017-02-24] MEDS ORDERED: CMD5 PO (14:39)
[2017-02-24] MEDS ORDERED: PRED10TA PO (14:39)
[2017-02-24] MEDS ORDERED: OXGN (14:39)
[2017-02-24] MEDS ORDERED: ENOX30IN4 SQ (14:40)
[2017-02-24] MEDS ORDERED: AZIT-60 PO (14:52)
[2017-04-08] MEDS ORDERED: VNTHFA/IN INH (08:31)
== END 2016-10-30 14:30 | disposition home or self-care (01) ==
LOC: C.EDB 14:19 → C.MS4W 20:58 → ENRESERV 21:24
PROVIDERS: ADMIT Internal Medicine; ATTEND Family Medicine
DX: J45.901 Unspecified asthma with (acute) exacerbation (principal); M54.9 Dorsalgia, unspecified; G89.29 Other chronic pain; S22.079A Unspecified fracture of T9-T10 vertebra, initial encounter for closed fracture; X58.XXXA Exposure to other specified factors, initial encounter; Z79.899 Other long term (current) drug therapy; F41.9 Anxiety disorder, unspecified; Z86.711 Personal history of pulmonary embolism; Z87.891 Personal history of nicotine dependence; Z98.890 Other specified postprocedural states; Z90.89 Acquired absence of other organs; Z90.49 Acquired absence of other specified parts of digestive tract; Z82.49 Family history of ischemic heart disease and other diseases of the circulatory system; Z80.9 Family history of malignant neoplasm, unspecified; Z84.1 Family history of disorders of kidney and ureter

== ENCOUNTER → 2016-11-08 | Outpatient (CLI) | payer OTHER ==
[~2016-11-08] MED LIST changes: +ATV/1 PO; +ATV1 PO; +CHOL100010 PO; +CITA40TA4 PO; +CYAN10005 PO; +DOCU-94 PO; +EPP3/2 IM; +FLX/5 PO; +FLX5 PO; +FURO40TA3 PO; +HYDR-5688 PO; +IPRASOL4 NEB; +LEVA1.258 INH; +LSX40 PO; +OMEP20CA9 PO; +OXGN; +OXYC-609 PO; +OXYC1TAB3 PO; +POTA-74 PO; +POTA10CA28 PO; +PRD20 PO; +PRED10TA PO; -SPRIN PO; +VNTHFA/IN INH; +ZTHM250 PO; +[UNRECOGNIZED DRUG - CODE] IV
[2016-11-08 13:50] LABS: COMPLETE YES; EOS % 3.8 %; HEMATOCRIT 34.5 % (37-47); IG% 0.3 %; LYMPH % 31.7 %; LYMPH ABS # 3.08 K/uL (1.2-3.4); MEAN CORPUSCULAR HEMOGLOBIN 22.1 pg (25-34); MEAN CORPUSCULAR HGB CONC 28.7 g/dl (32-36); MEAN PLATELET VOLUME 11.1 fL (7.4-10.4); MONO % 7.8 %; NEUT % 55.4 %; PLATELET COUNT 295 K/uL (130-400); RED BLOOD COUNT 4.48 M/uL (4.2-5.4); WHITE BLOOD COUNT 9.73 K/uL (4.8-10.8)
[2016-11-08 15:05] LABS: ALT/SGPT 22 U/L (12-78); AST/SGOT 9 U/L (15-37); BLOOD UREA NITROGEN 12 mg/dl (7-18); BUN/CREATININE RATIO 13.1 (10-20); CALCIUM 8.7 mg/dl (8.5-10.1); CARBON DIOXIDE 29 mmol/L (21-32); CHLORIDE 107 mmol/L (98-107); GLUCOSE 97 mg/dl (70-99); IMMUNOGLOBULN A 76.1 mg/dL (70-400); POTASSIUM 3.4 mmol/L (3.5-5.1); SODIUM 143 mmol/L (136-145)
[2016-11-08 15:18] LABS: ALB/GLOB RATIO 1.1 (0.9-2); ALKALINE PHOSPHATASE 79 U/L (45-117); IMMUNOGLOBULN M 65.7 mg/dL (40-230)
== END | disposition home or self-care (01) ==
LOC: C.LABMFLN 11:27
PROVIDERS: ATTEND Physician Assistant
DX: D80.0 Hereditary hypogammaglobulinemia (principal); E83.42 Hypomagnesemia; J45.998 Other asthma

== ENCOUNTER 2016-11-27 16:08 | Inpatient (IN) | payer OTHER ==
[~2016-11-27] VITALS: Ht 167.6 cm; Wt 92.4 kg
[~2016-11-27 16:08] MED LIST changes: -ATV/1 PO; -ATV1 PO; -CHOL100010 PO; -CITA40TA4 PO; -CYAN10005 PO; -DOCU-94 PO; -EPP3/2 IM; -FLX/5 PO; -FURO40TA3 PO; -HYDR-5688 PO; -LEVA1.258 INH; -LSX40 PO; -OMEP20CA9 PO; -OXGN; -OXYC-609 PO; -POTA-74 PO; -POTA10CA28 PO; -PRD20 PO; -VNTHFA/IN INH; -ZTHM250 PO; -[UNRECOGNIZED DRUG - CODE] IV
[2016-11-27] MEDS ORDERED: METHYLPREDNISOLONE 125 MG VIAL IV STA (16:30)
[2016-11-27] MEDS ORDERED: ALBUT/IPRATROP 3MG/0.5MG NEB 3 ML VIAL INH ONE (16:30)
--- NOTE | 2016-11-27 16:38 | EMERGENCY ROOM VISIT NOTE ---
History Report prepared by Jean-Pierre: Misty Callahan Under the Supervision of: Dr. Sherrie Vasquez M.D. First contact with patient: 16:20 Chief Complaint: RESPIRATORY PROBLEMS Stated Complaint: ASTHMA History of Present Illness The patient is a 56 year old female who presents to the Emergency Room with complaints of persistent respiratory problems that began two days ago. She currently rates her discomfort as a 9/10 in severity. The patient states that she has a history of asthma, noting that her symptoms have been worsened over the last two days. She states that she has taken nebulizer treatments and inhalers without relief of her symptoms. The patient associates chest tightness with her symptoms, but denies any radiation into her arms or jaw. She states that chest tightness is a typical symptom with her asthma exacerbations. The patient additionally reports a sore throat. She denies any cough or fever. The patient states that she is to have an appointment with her PCP tomorrow, but states she did not want to risk waiting that long for an appointment. She states that she takes 10 mg of Prednisone daily. The patient additionally states that she has a T9 and T11 fractures to her back. She states that she developed one from walking across the [employer] parking lot and the other from picking up a 9 lb walker. She denies the fractures being full fractures. The patient states that her back issues are from long time use of steroids. The patient states that she took [place] today for her back pain. She states that her back pain is worsened when her asthma symptoms worsen. Source of History: patient Onset: two days ago Position: other (global) Symptom Intensity: 9/10 Quality: other (respiratory problems) Timing: other (persistent) Associated Symptoms: + sorethroat, + chest pain (tightness), + back pain, No fevers, No cough Review of Systems See HPI for pertinent positives & negatives. A total of 10 systems reviewed and were otherwise negative. 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 (14) Microscopic hematuria (15) Osteoporosis (16) Sleep apnea (17) Vertebral fracture, closed Surgical Problems: (1) H/O sinus surgery (2) History of carpal tunnel surgery (3) S/P cardiac cath (4) S/P herniorrhaphy (5) Status post appendectomy (6) Status post hernia repair (7) Status post partial colectomy (8) Status post thermoplasty (9) Status post thermoplasty Family History FH: heart disease FATHER FH: sleep apnea MOTHER FHx: cancer FHx: gallbladder disease Hypertension MOTHER Kidney disease MOTHER Social History Smoking Status: Former Smoker Alcohol Use: none Housing Status: lives with significant other Current/Historical Medications Scheduled Azithromycin (Azithromycin), 250 MG PO QAM Cholecalciferol (Vitamin D), 1,000 INTER.UNIT PO BID Citalopram (Citalopram Hydrobromide), 40 MG PO QAM Cyanocobalamin (Vitamin B-12), 1,000 MCG PO QAM Docusate Sodium (Colace), 200 MG PO HS Furosemide (Lasix), 40 MG PO DAILY Home O2 Therapy (Oxygen), 2 LITERS NA HS Immune Globulin (Human) Iv (Privigen), 1 DOSE IV MONTHLY Omeprazole (Prilosec), 20 MG PO BID Potassium Chloride (Micro-K Ext Rel), 10 MEQ PO DAILY Prednisone (Prednisone), 10 MG PO DIRECTED Prednisone (Prednisone), 40 MG PO DAILY Scheduled PRN Albuterol Hfa (Ventolin Hfa), 2-4 PUFFS INH Q6H PRN for SOB/Wheezing Cyclobenzaprine HCl (Cyclobenzaprine HCl), 5 MG PO HS PRN for Muscle Spasm Epinephrine (Epipen 2-Deshawn), 0.3 MG IM UD PRN for ALLERGIC REACTION Hydrocodone/Acetaminophen 5MG/325MG ([place] 5MG/325MG), 1-2 TABS PO Q4-6H PRN for Pain Levalbuterol Hcl (Levalbuterol Hcl), 1.25 MG INH Q4 PRN for SOB/Wheezing Lorazepam (Ativan), 2 MG PO HS PRN for Anxiety Lorazepam (Lorazepam), 1 MG PO DAILY PRN for Anxiety Allergies Coded Allergies: Aspirin (Verified Allergy, Intermediate, HIVES, 10/29/16) Ibuprofen (Verified Allergy, Intermediate, HIVES, 10/29/16) Levofloxacin (Verified Allergy, Intermediate, HIVES, 10/29/16) Iodinated Diagnostic Agents (Verified Allergy, Unknown, HIVES, 10/29/16) Pregabalin (Verified Adverse Reaction, Intermediate, SEVERE DEPRESSION, ) Zolpidem (Verified Adverse Reaction, Intermediate, HALLUCINATIONS, 10/29/16 ) Gabapentin (Verified Adverse Reaction, Mild, GOOFY THOUGHTS, 10/29/16) Physical Exam Vital Signs Date Time Temp Pulse Resp B/P (MAP) Pulse Ox O2 Delivery O2 Flow Rate FiO2 11/27/16 19:40 82 16 145/72 96 Nasal Cannula 2.0 11/27/16 18:15 87 Room Air 11/27/16 18:15 91 Nasal Cannula 2.0 11/27/16 17:53 98 16 152/108 93 Room Air 11/27/16 17:48 77 14 96 Room Air 11/27/16 17:14 99 Room Air 11/27/16 16:21 96 Room Air 11/27/16 16:10 36.6 90 20 139/82 95 Room Air Physical Exam Vital signs reviewed. General: Well-appearing female, in no significant distress. HEENT: No scleral icterus, PERRLA, neck supple. Atraumatic. Cardiovascular: Regular rate and rhythm, no extra sounds. Pulmonary: Expiratory wheeze bilaterally, normal work of breathing. Abdomen: Soft, nontender, nondistended, positive bowel sounds. Musculoskeletal: Atraumatic, no peripheral edema. Neurologic: Patient awake alert and oriented x 3, full strength in all 4 extremities. Cranial nerves 2 through 12 grossly intact. Skin: Warm, dry, no rash Medical Decision & Procedures ER Provider Diagnostic Interpretation: X-ray results as stated below per interpretation by me and the radiologist: CHEST ONE VIEW PORTABLE CLINICAL HISTORY: asthma, cough dyspnea COMPARISON STUDY: 10/29/2016 FINDINGS: Central catheter in superior vena cava. No evidence for cardiac enlargement. Chronic pleural reactive change left base. No focal infiltrate. IMPRESSION: Chronic change. No acute process. The above report was generated using voice recognition software. It may contain grammatical, syntax or spelling errors. Electronically signed by: Vivek Sanders M.D. 11/27/2016 5:14 PM Dictated Date/Time: 11/27/2016 5:14 PM Laboratory Results Test 11/27/16 17:10 Hypochromasia PRESENT Anisocytosis PRESENT Prothrombin Time 10.0 SECONDS (9.0-12.0) Prothromb Time International Ratio 0.9 (0.9-1.1) Activated Partial Thromboplast Time 23.3 SECONDS (21.0-31.0) Partial Thromboplastin Ratio 0.9 Total Bilirubin 0.2 mg/dl (0.2-1) Direct Bilirubin < 0.1 mg/dl (0-0.2) Aspartate Amino Transf (AST/SGOT) 15 U/L (15-37) Alanine Aminotransferase (ALT/SGPT) 24 U/L (12-78) Alkaline Phosphatase 79 U/L (45-117) Total Creatine Kinase 37 U/L (26-192) Creatine Kinase MB < 0.5 ng/ml (0.5-3.6) Creatine Kinase MB Ratio (0-3.0) Troponin I < 0.015 ng/ml (0-0.045) Total Protein 6.5 gm/dl (6.4-8.2) Albumin 3.1 gm/dl (3.4-5.0) Laboratory results per my review. Medications Administered Medications (Trade) Dose Ordered Sig/Kaye Route Start Time Stop Time Status Last Admin Dose Admin Methylprednisolone Sodium Succinate (Solu-Medrol IV) 125 mg NOW STAT IV 11/27/16 16:30 11/27/16 16:34 DC 11/27/16 16:30 125 MG Albuterol/ Ipratropium (Duoneb) 12 ml ONE ONCE INH 11/27/16 16:30 11/27/16 16:34 DC 11/27/16 16:47 12 ML Oxycodone/ Acetaminophen (Percocet 5-325mg Tab) 1 tab NOW ONCE PO 11/27/16 16:45 11/27/16 16:46 DC 11/27/16 16:45 1 TAB Cyclobenzaprine HCl (Flexeril Tab) 5 mg HS PRN PO 11/27/16 19:45 11/29/16 10:34 DC 11/28/16 23:34 5 MG Acetaminophen/ Hydrocodone Bitart ([place] 5/325 Tab) 1 tab Q6 PRN PO 11/27/16 19:45 11/28/16 13:01 DC 11/28/16 12:42 1 TAB Lorazepam (Ativan Tab) 1 mg DAILY PRN PO 11/27/16 19:45 11/29/16 10:34 DC 11/28/16 15:48 1 MG Lorazepam (Ativan Tab) 2 mg HS PRN PO 11/27/16 19:45 11/29/16 10:34 DC 11/28/16 21:35 2 MG Oxycodone HCl (Roxicodone Immediate Rel Tab) 5 mg Q4H PRN PO 11/27/16 19:45 11/28/16 13:01 DC 11/28/16 10:05 5 MG Azithromycin (Zithromax Tab) 500 mg NOW ONCE PO 11/27/16 19:45 11/27/16 19:53 DC 11/27/16 19:45 500 MG ECG Indication: chest pain, SOB/dyspnea Rate (beats per minute): 79 Rhythm: normal sinus Findings: nonspecific-ST abn, no acute ischemic change, no ectopy ED Course 162: Past medical records reviewed. The patient was evaluated in room B10. A complete history and physical examination was performed. 1630: Ordered Duoneb 12 ml INH, Solu-Medrol IV 125 mg IV. 164: Ordered Oxycodone/Acetaminophen 1 tab PO. 184: I reevaluated the patient and she is resting comfortably. I discussed the exam findings with her and I discussed the treatment plan. She states that she does not feel comfortable going home. She is going to have an ambulation trial. 1908: I discussed the patients case with Aure Hodges. He is familiar with the patient and has agreed to evaluate her for further management. Medical Decision Differential diagnosis: Etiologies such as infections, reactive airway disease, pneumonia, pneumothorax , COPD, CHF, cardiac ischemia, pulmonary embolism, musculoskeletal, gastrointestinal, as well as others were entertained. This patient was evaluated and appeared to be in no significant distress. Patient was requesting pain medication. She is noted to have forced end expiratory wheezes. She was given an hour-long DuoNeb treatment and IV Solu- Medrol. Chest x-ray was obtained and is clear. Patient had borderline hypoxia during her stay in the ER however I feel this is likely her baseline and partially related to the albuterol. She was reassured that the plan for discharge to follow-up with her personnel psychologist tomorrow would be a reasonable plan. The patient became upset and asked to speak with the charge others. They performed an ambulatory trial where her pulse ox was in the high 80s. As the patient does not wear home oxygen, she has requested admission to the hospital. The hospitalist was consulted. Medication Reconcilliation Current Medication List: was personally reviewed by me Blood Pressure Screening Patient's blood pressure: Elevated blood pressure Blood pressure disposition: Elevated BP felt to be situational Consults Time Called: 1904 Consulting Physician: Aure Hodges Returned Call: 1908 I discussed the patients case with Aure Hodges. He is going to evaluate the patient for further treatment. Impression Primary Impression: Asthma exacerbation Scribe Attestation The scribe's documentation has been prepared under my direction and personally reviewed by me in its entirety. I confirm that the note above accurately reflects all work, treatment, procedures, and medical decision making performed by me. Departure Information Dispostion Being Evaluated By Hospitalist Prescriptions Prednisone (Prednisone) 20 Mg Tab 40 MG PO DAILY for 5 Days, #10 TAB Prov: Pooja. Martinez S 11/29/16 Azithromycin (Azithromycin) 250 Mg Tab 250 MG PO QAM for 4 Days, #4 TAB 0 Refills Prov: Pooja. Martinez S 11/29/16 Levalbuterol Hcl (LEVALBUTEROL HCL) 1.25 Mg/3 Ml Neb 1.25 MG INH Q4 Y for SOB/Wheezing, #1 Prov: Rolo Montgomery MD 11/27/16 Potassium Chloride (Micro-K Ext Rel) 10 Meq Capcr 10 MEQ PO DAILY, #30 CAP Prov: Rolo Montgomery MD 11/27/16 Furosemide (LASIX) 40 Mg Tab 40 MG PO DAILY, #30 TAB Prov: Rolo Montgomery MD 11/27/16 Prednisone (Prednisone) 10 Mg Tab 10 MG PO DIRECTED, #29 TAB 40 mg for 4 days, 30 mg for 3 days, 20 mg for 2 days, then resume your 10 mg daily. Prov: Sherrie Vasquez M.D. 11/27/16 Referrals Petra Kelly (PCP)
[2016-11-27] MEDS ORDERED: OXYCODONE/ACETAMINOPHEN 5-325 TAB PO ONE (16:45)
[2016-11-27] MEDS ORDERED: OXYC-609 PO (16:49)
--- NOTE | 2016-11-27 17:16 | DIAGNOSTIC IMAGING REPORT ---
CHEST ONE VIEW PORTABLE CLINICAL HISTORY: asthma, cough dyspnea COMPARISON STUDY: 10/29/2016 FINDINGS: Central catheter in superior vena cava. No evidence for cardiac enlargement. Chronic pleural reactive change left base. No focal infiltrate. IMPRESSION: Chronic change. No acute process. The above report was generated using voice recognition software. It may contain grammatical, syntax or spelling errors. Electronically signed by: Vivek Sanders M.D. 11/27/2016 5:14 PM Dictated Date/Time: 11/27/2016 5:14 PM
[2016-11-27 17:32] LABS: MEAN CELL VOLUME 74.5 fL (80-100); MEAN CORPUSCULAR HEMOGLOBIN 20.7 pg (25-34); MEAN CORPUSCULAR HGB CONC 27.8 g/dl (32-36); MEAN PLATELET VOLUME 10.5 fL (7.4-10.4); PLATELET COUNT 291 K/uL (130-400); RED BLOOD COUNT 4.83 M/uL (4.2-5.4); WHITE BLOOD COUNT 10.04 K/uL (4.8-10.8)
[2016-11-27 17:48] VITALS: PULSE 77; O2SAT 96
[2016-11-27 17:49] LABS: ALT/SGPT 24 U/L (12-78); AST/SGOT 15 U/L (15-37); BLOOD UREA NITROGEN 14 mg/dl (7-18); BUN/CREATININE RATIO 15.4 (10-20); CALCIUM 8.4 mg/dl (8.5-10.1); CARBON DIOXIDE 29 mmol/L (21-32); CHLORIDE 106 mmol/L (98-107); GLUCOSE 108 mg/dl (70-99); MAGNESIUM 2.1 mg/dl (1.8-2.4); POTASSIUM 3.7 mmol/L (3.5-5.1); SODIUM 141 mmol/L (136-145)
[2016-11-27 17:54] LABS: ALKALINE PHOSPHATASE 79 U/L (45-117)
[2016-11-27 18:34] LABS: ANISOCYTOSIS PRESENT; BASO % 0.6 %; BASO ABS # 0.06 K/uL (0-0.2); COMPLETE YES; EOS % 3.3 %; HYPOCHROMIA PRESENT; IG% 0.1 %; LYMPH % 23.5 %; LYMPH ABS # 2.36 K/uL (1.2-3.4); MONO % 7.2 %; NEUT % 65.3 %; OVALOCYTES 1+; TEAR DROP CELLS 1+
[2016-11-27] MEDS ORDERED: PRED10TA PO (18:42)
[2016-11-27] MEDS ORDERED: POTA-74 PO (18:59)
[2016-11-27] MEDS ORDERED: EPINEPHRINE ADULT AUTO-INJECT 0.3 MG SYR IM PRN (19:45)
[2016-11-27] MEDS ORDERED: ALUMINUM/MAGNESIUM/SIMETH (MAALOX MAX) 30 ML UDC PO PRN (19:45)
[2016-11-27] MEDS ORDERED: AZITHROMYCIN 250 MG TAB PO ONE (19:45)
[2016-11-27] MEDS ORDERED: MAGNESIUM HYDROXIDE SUSP 30 ML UDC PO PRN (19:45)
[2016-11-27] MEDS ORDERED: ALBUTEROL HFA 8 GM INHALER INH PRN (19:45)
[2016-11-27] MEDS ORDERED: ACETAMINOPHEN 325 MG TAB PO PRN (19:45)
[2016-11-27] MEDS ORDERED: LEVALBUTEROL/IPRATROPIUM NEB INH PRN (19:45)
[2016-11-27] MEDS ORDERED: ONDANSETRON INJ 2 MG/ML 2 ML VIAL IV PRN (19:45)
[2016-11-27] MEDS ORDERED: LORAZEPAM 1 MG TAB PO PRN (19:45)
[2016-11-27] MEDS ORDERED: LORAZEPAM 2 MG TAB PO PRN (19:45)
[2016-11-27 19:49] VITALS: O2SAT 96; Ht 167.6 cm; Wt 92.4 kg
[2016-11-27] MEDS ORDERED: LEVA1.258 INH (19:51)
[2016-11-27] MEDS ORDERED: FURO40TA3 PO (19:51)
[2016-11-27] MEDS ORDERED: POTA10CA28 PO (19:51)
[2016-11-27] MEDS ORDERED: OXYCODONE HCL IR 5 MG TAB (IMMEDIATE RELEASE) ONE (19:55)
--- NOTE | 2016-11-27 19:59 | History and Physical ---
History & Physical Date & Time of Service: Nov 27, 2016 at 19:52 Chief Complaint: Asthma Primary Care Physician: Petra Kelly History of Present Illness Source: patient [id number] with PMH of asthma,XIAO, chronic back pain multiple admissions for asthma and back pain presents with asthma exacerbation and worsening of back pain. Patient recently had T9 compression fracture and taking extra pain pills as prescribed by ortho. Since last two days patient having increased sob. Denies cough. Afebrile.Has sore throat. Using nebs at home but not working. Supposed to see pulmonary Semaj Birch tomorrow but since her symptoms are worsening she came to ER today. Patient says whenever her asthma attacks her back pain gets worse. Requesting for pain meds. Denies headaches, dizziness or blurred vision. No nausea or vomiting. No diarrhea. Uses stool softeners.No rash. No leg swelling. Currently resting comfortably and hemodynamically stable. 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 Status: Chronic (14) Microscopic hematuria Permanent Comment: evaluated by Urology; no significant path per patient Status: Chronic (15) Osteoporosis Status: Chronic (16) Sleep apnea Status: Chronic (17) Vertebral fracture, closed Status: Chronic Surgical Problems: (1) H/O sinus surgery Status: Chronic (2) History of carpal tunnel surgery Status: Chronic (3) S/P cardiac cath Status: Chronic (4) S/P herniorrhaphy Status: Chronic (5) Status post appendectomy Status: Chronic (6) Status post hernia repair Status: Chronic (7) Status post partial colectomy Status: Chronic (8) Status post thermoplasty Status: Chronic (9) Status post thermoplasty Status: Chronic Family History FH: heart disease FATHER FH: sleep apnea MOTHER FHx: cancer FHx: gallbladder disease Hypertension MOTHER Kidney disease MOTHER Social History Smoking Status: Former Smoker Smokeless Tobacco Use: Yes Alcohol Use: none Drug Use: none Marital Status: Immunizations History of Influenza Vaccine: Yes Influenza Vaccine Date: Jan 25, 2016 History of Tetanus Vaccine?: Yes Tetanus Immunization Date: Aug 16, 2007 History of Pneumococcal: Yes Pneumococcal Date: Jan 02, 2016 Allergies Coded Allergies: Aspirin (Verified Allergy, Intermediate, HIVES, 10/29/16) Ibuprofen (Verified Allergy, Intermediate, HIVES, 10/29/16) Levofloxacin (Verified Allergy, Intermediate, HIVES, 10/29/16) Iodinated Diagnostic Agents (Verified Allergy, Unknown, HIVES, 10/29/16) Pregabalin (Verified Adverse Reaction, Intermediate, SEVERE DEPRESSION, ) Zolpidem (Verified Adverse Reaction, Intermediate, HALLUCINATIONS, 10/29/16 ) Gabapentin (Verified Adverse Reaction, Mild, GOOFY THOUGHTS, 10/29/16) Home Medications Scheduled Cholecalciferol (Vitamin D), 1,000 INTER.UNIT PO BID Citalopram (Citalopram Hydrobromide), 40 MG PO QAM Cyanocobalamin (Vitamin B-12), 1,000 MCG PO QAM Docusate Sodium (Colace), 200 MG PO HS Furosemide (Lasix), 40 MG PO DAILY Home O2 Therapy (Oxygen), 2 LITERS NA HS Immune Globulin (Human) Iv (Privigen), 1 DOSE IV MONTHLY Omeprazole (Prilosec), 20 MG PO BID Potassium Chloride (Micro-K Ext Rel), 10 MEQ PO DAILY Prednisone (Prednisone), 10 MG PO DAILY Prednisone (Prednisone), 10 MG PO DIRECTED Scheduled PRN Albuterol Hfa (Ventolin Hfa), 2-4 PUFFS INH Q6H PRN for SOB/Wheezing Cyclobenzaprine HCl (Cyclobenzaprine HCl), 5 MG PO HS PRN for Muscle Spasm Epinephrine (Epipen 2-Deshawn), 0.3 MG IM UD PRN for ALLERGIC REACTION Hydrocodone/Acetaminophen 5MG/325MG ([place] 5MG/325MG), 1-2 TABS PO Q4-6H PRN for Pain Levalbuterol Hcl (Levalbuterol Hcl), 1.25 MG INH Q4 PRN for SOB/Wheezing Lorazepam (Ativan), 2 MG PO HS PRN for Anxiety Lorazepam (Lorazepam), 1 MG PO DAILY PRN for Anxiety Oxycodone HCl (Oxycodone HCl), 5 MG PO Q4H PRN for Breakthrough Pain Review of Systems Constitutional: No fever, No chills ENT: + sore throat Respiratory: + shortness of breath, No cough Cardiovascular: No chest pain, No edema Abdomen: No pain, No nausea, No vomiting, No diarrhea Genitourinary - Female: No dysuria, No hematuria Neurologic: No memory loss Integumentary: No rash Physical Exam Vital Signs Date Time Temp Pulse Resp B/P (MAP) Pulse Ox O2 Delivery O2 Flow Rate FiO2 11/27/16 19:40 82 16 145/72 96 Nasal Cannula 2.0 11/27/16 18:15 87 Room Air 11/27/16 18:15 91 Nasal Cannula 2.0 11/27/16 17:53 98 16 152/108 93 Room Air 11/27/16 17:48 77 14 96 Room Air 11/27/16 17:14 99 Room Air 11/27/16 16:21 96 Room Air 11/27/16 16:10 36.6 90 20 139/82 95 Room Air General Appearance: no apparent distress Head: normocephalic, atraumatic Eyes: normal inspection, PERRL ENT: normal ENT inspection, hearing grossly normal, pharynx normal Neck: supple, no adenopathy, thyroid normal Respiratory/Chest: chest non-tender, lungs clear, normal breath sounds, no respiratory distress, no accessory muscle use, + wheezing Cardiovascular: regular rate, rhythm, no edema, no gallop, no murmur Abdomen/GI: normal bowel sounds, non tender, soft, no organomegaly, no pulsatile mass Extremities/Musculoskelatal: normal inspection, no calf tenderness, no pedal edema Neurologic/Psych: manager perioperative II-XII nml as tested, alert, normal mood/affect, oriented x 3 Skin: normal color, warm/dry, no rash Diagnostics Laboratory Results Results Past 24 Hours Test 11/27/16 17:10 Range/Units White Blood Count 10.04 4.8-10.8 K/uL Red Blood Count 4.83 4.2-5.4 M/uL Hemoglobin 10.0 12.0-16.0 g/dL Hematocrit 36.0 37-47 % Mean Corpuscular Volume 74.5 80-100 fL Mean Corpuscular Hemoglobin 20.7 25-34 pg Mean Corpuscular Hemoglobin Concent 27.8 32-36 g/dl Platelet Count 291 130-400 K/uL Mean Platelet Volume 10.5 7.4-10.4 fL Neutrophils (%) (Auto) 65.3 % Lymphocytes (%) (Auto) 23.5 % Monocytes (%) (Auto) 7.2 % Eosinophils (%) (Auto) 3.3 % Basophils (%) (Auto) 0.6 % Neutrophils # (Auto) 6.56 1.4-6.5 K/uL Lymphocytes # (Auto) 2.36 1.2-3.4 K/uL Monocytes # (Auto) 0.72 0.11-0.59 K/uL Eosinophils # (Auto) 0.33 0-0.5 K/uL Basophils # (Auto) 0.06 0-0.2 K/uL RDW Standard Deviation 51.4 36.4-46.3 fL RDW Coefficient of Variation 18.7 11.5-14.5 % Immature Granulocyte % (Auto) 0.1 % Immature Granulocyte # (Auto) 0.01 0.00-0.02 K/uL Hypochromasia PRESENT Anisocytosis PRESENT Tear Drop Cells 1+ Ovalocytes 1+ Sodium Level 141 136-145 mmol/L Potassium Level 3.7 3.5-5.1 mmol/L Chloride Level 106 98-107 mmol/L Carbon Dioxide Level 29 21-32 mmol/L Anion Gap 6.0 3-11 mmol/L Blood Urea Nitrogen 14 7-18 mg/dl Creatinine 0.90 0.60-1.20 mg/dl Est Creatinine Clear Calc Drug Dose 79.0 ml/min Estimated GFR () 82.3 Estimated GFR (Non- 71.0 BUN/Creatinine Ratio 15.4 10-20 Random Glucose 108 70-99 mg/dl Calcium Level 8.4 8.5-10.1 mg/dl Magnesium Level 2.1 1.8-2.4 mg/dl Total Bilirubin 0.2 0.2-1 mg/dl Direct Bilirubin < 0.1 0-0.2 mg/dl Aspartate Amino Transf (AST/SGOT) 15 15-37 U/L Alanine Aminotransferase (ALT/SGPT) 24 12-78 U/L Alkaline Phosphatase 79 45-117 U/L Total Creatine Kinase 37 26-192 U/L Creatine Kinase MB < 0.5 0.5-3.6 ng/ml Creatine Kinase MB Ratio 0-3.0 Troponin I < 0.015 0-0.045 ng/ml Total Protein 6.5 6.4-8.2 gm/dl Albumin 3.1 3.4-5.0 gm/dl CXR normal No change from prior EKG Impression Assessment and Plan 56ay F presents with asthma exacerbation Asthma exacerbation iv steroids, nebs atc and oxygen has sore throat, started on azithromycin supposed to see pulmonary Semaj Birch tomorrow Will consult pulmonary will monitor in medical floor Chronic back pain recent t9 compression fx says her back pain gets worse when asthma acts up will continue home po pain meds XIAO cpap q hs Anxiety/depression on Celexa Ativan prn DVt px scds hep sub q disposition monitor in medical floor Level of Care Med/Surg Resuscitation Status FULL RESUSCITATION VTE Prophylaxis VTE Risk Assessment Done? Y/N: Yes Risk Level: Moderate Given or contraindicated: Unfractionated heparin SQ, SCD's
[2016-11-27] MEDS: CYCLOBENZAPRINE HCL 5 MG TAB PO PRN (20:07)
[2016-11-27] MEDS ORDERED: LEVALBUTEROL 0.63MG/3 ML NEB INH PRN (20:30)
[2016-11-27] MEDS ORDERED: IPRATROPIUM BROMIDE NEB SOLN 0.02% 2.5 ML VIAL INH PRN (20:30)
[2016-11-27] MEDS ORDERED: LSX40 PO (20:38)
[2016-11-27 20:42] VITALS: BP 152/89; PULSE 85; TEMP 37; O2SAT 98
[2016-11-27 20:55] LABS: INR 0.9 (0.9-1.1); PARTIAL THROMBOPLASTIN RATIO 0.9
[2016-11-27] MEDS: LEVALBUTEROL 1.25MG/0.5ML NEB INH SCH (21:00)
[2016-11-27] MEDS: HEPARIN SOD 5000 UNIT/0.5 ML CARP SQ SCH (21:00)
[2016-11-27] MEDS: IPRATROPIUM BROMIDE NEB SOLN 0.02% 2.5 ML VIAL INH SCH (21:00)
[2016-11-27] MEDS ORDERED: LEVALBUTEROL/IPRATROPIUM NEB INH SCH (21:00)
[2016-11-27] MEDS: DOCUSATE SODIUM 100 MG CAP PO SCH (21:01)
[2016-11-27] MEDS: CHOLECALCIFEROL 1000 INTER.UNIT TAB PO SCH (21:02)
[2016-11-27] MEDS: PANTOprazole SOD 40 MG TAB PO SCH (21:03)
[2016-11-27] MEDS: METHYLPREDNISOLONE IV 40 MG in SYRINGE 0 ML IV SCH (21:35)
[2016-11-27] MEDS: HYDROCODONE/ACETAMOPHEN 5/325MG TAB PO PRN (22:40)
[2016-11-28] VITALS (10 sets, daily range): BP systolic 107–167; BP diastolic 64–73; PULSE 66–101; TEMP 36.6–36.7; O2SAT 90–96
[2016-11-28] MEDS: OXYCODONE HCL IR 5 MG TAB (IMMEDIATE RELEASE) PO PRN ×2 (00:42→10:05)
[2016-11-28] MEDS: LEVALBUTEROL 1.25MG/0.5ML NEB INH SCH ×4 (02:14→20:21)
[2016-11-28] MEDS: IPRATROPIUM BROMIDE NEB SOLN 0.02% 2.5 ML VIAL INH SCH ×4 (02:14→20:21)
[2016-11-28 05:42] LABS: BASO % 0.1 %; BASO ABS # 0.01 K/uL (0-0.2); HEMATOCRIT 32.3 % (37-47); IG% 0.2 %; LYMPH ABS # 0.53 K/uL (1.2-3.4); MEAN CELL VOLUME 74.3 fL (80-100); MEAN CORPUSCULAR HEMOGLOBIN 21.8 pg (25-34); MEAN CORPUSCULAR HGB CONC 29.4 g/dl (32-36); MONO % 1.4 %; NEUT % 92.3 %; PLATELET COUNT 288 K/uL (130-400); RED BLOOD COUNT 4.35 M/uL (4.2-5.4); WHITE BLOOD COUNT 8.87 K/uL (4.8-10.8)
[2016-11-28 06:06] LABS: COMPLETE YES; OVALOCYTES 2+; TEAR DROP CELLS 1+
[2016-11-28] MEDS: METHYLPREDNISOLONE IV 40 MG in SYRINGE 0 ML IV SCH (06:11)
[2016-11-28] MEDS: HYDROCODONE/ACETAMOPHEN 5/325MG TAB PO PRN ×2 (06:17→12:42)
[2016-11-28 06:34] LABS: BUN/CREATININE RATIO 13.6 (10-20); CALCIUM 8.8 mg/dl (8.5-10.1); CREATININE 0.92 mg/dl (0.60-1.20); POTASSIUM 4.3 mmol/L (3.5-5.1)
[2016-11-28] MEDS: HEPARIN SOD 5000 UNIT/0.5 ML CARP SQ SCH ×2 (07:43→21:30)
[2016-11-28] MEDS: PANTOprazole SOD 40 MG TAB PO SCH ×2 (07:43→21:28)
[2016-11-28] MEDS: CITALOPRAM 40 MG TAB PO SCH (07:44)
[2016-11-28] MEDS: AZITHROMYCIN 250 MG TAB PO SCH (07:44)
[2016-11-28] MEDS: POTASSIUM CHLORIDE 10 MEQ TABCR PO SCH (07:44)
[2016-11-28] MEDS: CHOLECALCIFEROL 1000 INTER.UNIT TAB PO SCH ×2 (07:44→21:30)
[2016-11-28] MEDS: FUROSEMIDE 40 MG TAB PO SCH (07:44)
[2016-11-28] MEDS: CYANOCOBALAMIN 500 MCG TAB (VIT B-12) PO SCH (07:45)
--- NOTE | 2016-11-28 11:34 | Progress Note ---
Internal Med Progress Note Date of Service: Nov 28, 2016. Provider Documentation: SUBJECTIVE: Patient is doing better. SOB, cough better No chest pain, fever, chills, leg swelling. OBJECTIVE: Vital Signs-as noted below Exam: General-AAOX3, No distress Neck-Supple Lungs-AEBE decreased, mild wheezing, no rales Heart-S1, S2 normal, no murmur Extremities- No edema Lab data as noted below. ASSESSMENT & PLAN: 56ay F presents with mild asthma exacerbation. ASTHMA EXACERBATION : Improved -Not hypoxic -Will change IV Solumedrol to PO prednisone, Nebs, Azithromycin was started as complained of sore throat -Pulmonary was consulted CHRONIC LOW BACK PAIN Recent T 9 compression fx -Continue with PO home medications. AVOID IV NARCOTICS. XIAO -CPAP Q HS ANXIETY/DEPRESSION -on Celexa -Ativan prn DVT PROPHYLAXIS SCDS Heparin SQ DISPOSITION Medical floor Vital Signs: Date Time Temp Pulse Resp B/P (MAP) Pulse Ox O2 Delivery O2 Flow Rate FiO2 11/28/16 08:00 Nasal Cannula 2.0 11/28/16 07:55 36.6 73 16 107/70 (82) 96 Room Air 2.0 11/28/16 07:02 69 16 96 Nasal Cannula 2.0 11/28/16 02:14 78 16 96 BiPAP/CPAP 2.0 11/28/16 00:00 96 Nasal Cannula 2.0 CPAP 11/27/16 21:29 2.0 11/27/16 20:42 37.0 85 18 152/89 (110) 98 Nasal Cannula 2.0 11/27/16 19:49 96 Nasal Cannula 2.0 11/27/16 19:40 82 16 145/72 96 Nasal Cannula 2.0 11/27/16 18:15 87 Room Air 11/27/16 18:15 91 Nasal Cannula 2.0 11/27/16 17:53 98 16 152/108 93 Room Air 11/27/16 17:48 77 14 96 Room Air 11/27/16 17:14 99 Room Air 11/27/16 16:21 96 Room Air 11/27/16 16:10 36.6 90 20 139/82 95 Room Air Lab Results: Results Past 24 Hours Test 11/27/16 17:10 11/28/16 05:25 Range/Units White Blood Count 10.04 8.87 4.8-10.8 K/uL Red Blood Count 4.83 4.35 4.2-5.4 M/uL Hemoglobin 10.0 9.5 12.0-16.0 g/dL Hematocrit 36.0 32.3 37-47 % Mean Corpuscular Volume 74.5 74.3 80-100 fL Mean Corpuscular Hemoglobin 20.7 21.8 25-34 pg Mean Corpuscular Hemoglobin Concent 27.8 29.4 32-36 g/dl Platelet Count 291 288 130-400 K/uL Mean Platelet Volume 10.5 10.0 7.4-10.4 fL Neutrophils (%) (Auto) 65.3 92.3 % Lymphocytes (%) (Auto) 23.5 6.0 % Monocytes (%) (Auto) 7.2 1.4 % Eosinophils (%) (Auto) 3.3 0.0 % Basophils (%) (Auto) 0.6 0.1 % Neutrophils # (Auto) 6.56 8.19 1.4-6.5 K/uL Lymphocytes # (Auto) 2.36 0.53 1.2-3.4 K/uL Monocytes # (Auto) 0.72 0.12 0.11-0.59 K/uL Eosinophils # (Auto) 0.33 0.00 0-0.5 K/uL Basophils # (Auto) 0.06 0.01 0-0.2 K/uL RDW Standard Deviation 51.4 50.4 36.4-46.3 fL RDW Coefficient of Variation 18.7 18.5 11.5-14.5 % Immature Granulocyte % (Auto) 0.1 0.2 % Immature Granulocyte # (Auto) 0.01 0.02 0.00-0.02 K/uL Hypochromasia PRESENT Anisocytosis PRESENT Tear Drop Cells 1+ 1+ Ovalocytes 1+ 2+ Prothrombin Time 10.0 9.0-12.0 SECONDS Prothromb Time International Ratio 0.9 0.9-1.1 Activated Partial Thromboplast Time 23.3 21.0-31.0 SECONDS Partial Thromboplastin Ratio 0.9 Sodium Level 141 142 136-145 mmol/L Potassium Level 3.7 4.3 3.5-5.1 mmol/L Chloride Level 106 107 98-107 mmol/L Carbon Dioxide Level 29 26 21-32 mmol/L Anion Gap 6.0 9.0 3-11 mmol/L Blood Urea Nitrogen 14 13 7-18 mg/dl Creatinine 0.90 0.92 0.60-1.20 mg/dl Est Creatinine Clear Calc Drug Dose 79.0 77.2 ml/min Estimated GFR () 82.3 80.1 Estimated GFR (Non- 71.0 69.1 BUN/Creatinine Ratio 15.4 13.6 10-20 Random Glucose 108 200 70-99 mg/dl Calcium Level 8.4 8.8 8.5-10.1 mg/dl Magnesium Level 2.1 2.0 1.8-2.4 mg/dl Total Bilirubin 0.2 0.2-1 mg/dl Direct Bilirubin < 0.1 0-0.2 mg/dl Aspartate Amino Transf (AST/SGOT) 15 15-37 U/L Alanine Aminotransferase (ALT/SGPT) 24 12-78 U/L Alkaline Phosphatase 79 45-117 U/L Total Creatine Kinase 37 26-192 U/L Creatine Kinase MB < 0.5 0.5-3.6 ng/ml Creatine Kinase MB Ratio 0-3.0 Troponin I < 0.015 0-0.045 ng/ml Total Protein 6.5 6.4-8.2 gm/dl Albumin 3.1 3.4-5.0 gm/dl
--- NOTE | 2016-11-28 16:48 | Pulmonary Consultation ---
History General Date of Service: Nov 28, 2016. Stated Complaint: Asthma Exacerbation, Chronic Back Pain HPI The patient is a 56 year old female who presents to [facility] with complaints of Asthma Exacerbation, Chronic Back Pain. The patient's primary care provider is Petra Kelly. 56-yo female admitted to [facility] on 11/27/2016 with exacerbation of asthma. She is well known to the pulmonary service for severe persistent asthma with frequent hospitalizations and follows with ROSI Nazario and Dr. Chua. She complains of a 2 day history of chest tightness, worsening shortness of breath associated with wheezing and dyspnea on exertion. She denies any fever, chills, palpitations, night sweats, or lower extremity edema swelling. She does complain of sore throat. She states that she will recently was admitted for a T9 compression fracture and has been taking action medications for pain relief. She states that she took an inhaler and nebulizers of albuterol and ipratropium multiple times without relief. Patient has complicated pulmonary history but states she self discontinued all of her MDIs and and is only taking 10 mg of prednisone daily and nebulizers. She also uses oxygen 2 L nasal cannula when necessary and CPAP for obstructive sleep apnea Initial vital signs in the ER, temperature 36.6, pulse 90 respiratory rate of 20 blood pressure 139/82 saturating 95% on room air. She was admitted for asthma exacerbation and back pain. She was given systemic steroids, nebulizers and Azithromycin. At the time of my evaluation, patient says that she slept well. She denies any further shortness of breath, still has some wheezing, denies any chest tightness. Historian: patient Onset: last week (two days prior to admssion) Severity: moderate Complaint Status: persistent Modifying Factors: none Review of Systems Constitutional: reports: no symptoms Eyes: reports: no symptoms ENT: reports: sore throat Cardiovascular: reports: chest tightness, denies: no symptoms Respiratory: reports: shortness of breath, wheezing, SABA, denies: sputum production, cyanosis, PND, hemoptysis Gastrointestinal: reports: no symptoms Genitourinary - Female: reports: no symptoms Musculoskeletal: reports: back pain Integumentary: reports: no symptoms Psychiatric: reports: no symptoms Endocrine: no symptoms Hematologic / Lymphatic: no symptoms Allergic / Immunologic: no symptoms All Other Symptoms All Other Systems: Reviewed and Negative Past Medical History Past Medical History: Pulmonary history Asthma: She had symptoms of asthma from infancy until puberty and symptomatic until first . Post she was asymptomatic until 2007. Since 2007, has had severe persistent asthma, been on multiple inhalers and chronic steroid use--with complications, include adrenal insufficiency osteoporosis with compression fractures of T9 and T11, cataracts. She has had numerous admissions in the past for asthma. She denies intubation for asthma, but has been on BIPAP for pending respiratory failure. Morbid Obestiy: has led XIAO now on CPAP Provoked pulmonary embolism Acquired immunoglobulin deficiency Pulmonary procedures: Bronchial thermoplasty 03/18/2014 (minimal complications), 04/13/2014 and 201402/12/2011 bronchial washings grew Geena albicans. Bronchial washings from 04/13/2014 showed normal jefe. 05/27/2014 bronchoscopy washing showed normal jefe. 08/25/2015 bronchial washings grew Geena albicans. 04/11/2016 bronchial washings showed normal jefe. 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 ) 4)Chronic back pain 5)Depression 6)Dyslipidemia 7)GERD 8)Adrenal insufficiency 9)Colonic diveticulitis 10)PE (Coumadin was discontinued as these were notably provoked associated with surgeries) 11)CVID 12)Microscopic hematuria 13)XIAO 14)Osteoporosis 15)Vertebral fx Past Surgical History: 1)Bronchoscopy With Bronchial Thermoplasty 2)Colostomy 3)Colostomy Revision 4)Dilation And Curettage 5)Exploratory Laparotomy 6)Femoral Hernia Repair 7)Gallbladder Surgery 8)Hand Surgery 9)Hysterectomy 10)Knee Arthroscopy 11)Neuroplasty Decompression Median Nerve At Carpal Tunnel 12)Umbilical Hernia Herniorrhaphy 13)Ventral Hernia Repair Family History FH: heart disease FATHER FH: sleep apnea MOTHER FHx: cancer FHx: gallbladder disease Hypertension MOTHER Kidney disease MOTHER Family she significant for breast and colon cancer, kidney disease, hypertension , acute OR, asthma. Social History Former smoker with a 1 pack of cigarettes history for 5 years and quit in 2004. She denies any alcohol or illicit drug use. She denies any occupational exposures. She currently lives with her in a trailer. Hx Tobacco Use In Past Year?: No Smoking Status: Former Smoker Drug Use: none Marital status: Immunizations History of Influenza Vaccine: Yes Influenza Vaccine Date: Jan 25, 2016 History of Tetanus Vaccine?: Yes Tetanus Immunization Date: Aug 16, 2007 History of Pneumococcal: Yes Pneumococcal Date: Jan 02, 2016 Allergies Coded Allergies: Aspirin (Verified Allergy, Intermediate, HIVES, 10/29/16) Ibuprofen (Verified Allergy, Intermediate, HIVES, 10/29/16) Levofloxacin (Verified Allergy, Intermediate, HIVES, 10/29/16) Iodinated Diagnostic Agents (Verified Allergy, Unknown, HIVES, 10/29/16) Pregabalin (Verified Adverse Reaction, Intermediate, SEVERE DEPRESSION, ) Zolpidem (Verified Adverse Reaction, Intermediate, HALLUCINATIONS, 10/29/16 ) Gabapentin (Verified Adverse Reaction, Mild, GOOFY THOUGHTS, 10/29/16) Current Medications Reported Home Medications Medications Dose Route/Sig Max Daily Dose Days Date Category Dose Instructions Levalbuterol Hcl 1.25 Mg/3 Ml Neb 1.25 Mg INH Q4 PRN 11/27/16 Rx Micro-K Ext Rel (Potassium Chloride) 10 Meq Capcr 10 Meq PO DAILY 11/27/16 Rx Lasix (Furosemide) 40 Mg Tab 40 Mg PO DAILY 11/27/16 Rx Prednisone 10 Mg Tab 10 Mg PO DIRECTED 11/27/16 Rx 40 mg for 4 days, 30 mg for 3 days, 20 mg for 2 days, then resume your 10 mg daily. Oxycodone HCl 5 Mg Tab 5 Mg PO Q4H PRN 11/27/16 Reported Citalopram Hydrobromide (Citalopram) 40 Mg Tab 40 Mg PO QAM 11/27/16 Reported Cyclobenzaprine HCl 5 Mg Tab 5 Mg PO HS PRN 11/27/16 Reported Prednisone 10 Mg Tab 10 Mg PO DAILY 10/29/16 Reported Ventolin Hfa (Albuterol) 200 Puffs/36479 Mcg Aers 2-4 Puffs INH Q6H PRN 08/06/16 Reported Vitamin D (Cholecalciferol) 1,000 Unit Tab 1,000 Inter.unit PO BID 06/19/16 Reported Privigen (Immune Globulin (Human) Iv) 5 Gm/50 Ml Inj 1 Dose IV MONTHLY 12/20/15 Reported Oxygen Gas 2 Liters NA HS 10/20/15 Reported USE DIRECTED WITH C PAP [place] 5MG/325MG (Acetaminophen/Hydrocodone Bitart) Tab 1-2 Tabs PO Q4-6H PRN 07/09/15 Reported Colace (Docusate Sodium) 100 Mg Cap 200 Mg PO HS 05/06/15 Reported Lorazepam 1 Mg Tab 1 Mg PO DAILY PRN 01/08/15 Reported Vitamin B-12 (Cyanocobalamin) 1,000 Mcg Tab 1,000 Mcg PO QAM 12/13/14 Reported Ativan (Lorazepam) 1 Mg Tab 2 Mg PO HS PRN 12/13/14 Reported Prilosec (Omeprazole) 20 Mg Cap 20 Mg PO BID 04/05/14 Reported Epipen 2-Deshawn (Epinephrine) 0.3 Mg Inj 0.3 Mg IM UD PRN 04/05/14 Reported Physical Physical Exam Vital Signs: Date Time Temp Pulse Resp B/P (MAP) Pulse Ox O2 Delivery O2 Flow Rate FiO2 11/28/16 15:07 36.6 78 18 110/72 (85) 93 Room Air 11/28/16 13:55 69 16 94 Room Air 11/28/16 13:49 101 94 11/28/16 08:00 Nasal Cannula 2.0 11/28/16 07:55 36.6 73 16 107/70 (82) 96 Room Air 2.0 11/28/16 07:02 69 16 96 Nasal Cannula 2.0 11/28/16 02:14 78 16 96 BiPAP/CPAP 2.0 11/28/16 00:00 96 Nasal Cannula 2.0 CPAP 11/27/16 21:29 2.0 11/27/16 20:42 37.0 85 18 152/89 (110) 98 Nasal Cannula 2.0 11/27/16 19:49 96 Nasal Cannula 2.0 11/27/16 19:40 82 16 145/72 96 Nasal Cannula 2.0 11/27/16 18:15 87 Room Air 11/27/16 18:15 91 Nasal Cannula 2.0 11/27/16 17:53 98 16 152/108 93 Room Air 11/27/16 17:48 77 14 96 Room Air 11/27/16 17:14 99 Room Air 11/27/16 16:21 96 Room Air 11/27/16 16:10 36.6 90 20 139/82 95 Room Air General Appearance: No respiratory distress, Speaking in full sentences without use of muscles of respiration. Head: NORMOCEPHALIC, ATRAUMATIC Eyes: PERRLA, NO DISCHARGE, EOMI, ENT: NORMAL EAR EXAM, NORMAL NASAL EXAM, NORMAL MOUTH EXAM, NORMAL THROAT EXAM , Mallampati III Neck: NORMAL RANGE OF MOTION, NO TENDERNESS, TRACHEA MIDLINE, NO STRIDOR Respiratory/chest: rhonchi, wheezing bilaterally, chest wall with left Port-A- Cath in place. Cardiovasular: REGULAR RATE/RHYTHM, NORMAL S1S2, NO M/G/R, NO MURMUR, NO GALLOP Abdomen: NON TENDER, NORMAL BOWEL SOUNDS, NO REBOUND, NO MASSES, NO GUARDING, NO ORGANOMEGALY, NORMAL RECTAL EXAM, NO HEMORRHOIDS Back: paravertebral tenderness Upper Extremities: NO EDEMA Lower Extremities: edema Edema: Bilateral LE (1+) Pulses: carotid (R) (2+), carotid (L), dorsalis pedis (R) (1+), dorsalis pedis (L) (1+) Neuro: ALERT, ORIENTED x 3, NORMAL MOTOR EXAM, NORMAL SENSATION, NORMAL SPEECH Babinski Testing: right (downgoing), left (downgoing) Psychiatric: NORMAL AFFECT, NO SUICIDAL IDEATION, Diagnostics Labs Results Past 24 Hours Test 11/27/16 17:10 11/28/16 05:25 Range/Units White Blood Count 10.04 8.87 4.8-10.8 K/uL Red Blood Count 4.83 4.35 4.2-5.4 M/uL Hemoglobin 10.0 9.5 12.0-16.0 g/dL Hematocrit 36.0 32.3 37-47 % Mean Corpuscular Volume 74.5 74.3 80-100 fL Mean Corpuscular Hemoglobin 20.7 21.8 25-34 pg Mean Corpuscular Hemoglobin Concent 27.8 29.4 32-36 g/dl Platelet Count 291 288 130-400 K/uL Mean Platelet Volume 10.5 10.0 7.4-10.4 fL Neutrophils (%) (Auto) 65.3 92.3 % Lymphocytes (%) (Auto) 23.5 6.0 % Monocytes (%) (Auto) 7.2 1.4 % Eosinophils (%) (Auto) 3.3 0.0 % Basophils (%) (Auto) 0.6 0.1 % Neutrophils # (Auto) 6.56 8.19 1.4-6.5 K/uL Lymphocytes # (Auto) 2.36 0.53 1.2-3.4 K/uL Monocytes # (Auto) 0.72 0.12 0.11-0.59 K/uL Eosinophils # (Auto) 0.33 0.00 0-0.5 K/uL Basophils # (Auto) 0.06 0.01 0-0.2 K/uL RDW Standard Deviation 51.4 50.4 36.4-46.3 fL RDW Coefficient of Variation 18.7 18.5 11.5-14.5 % Immature Granulocyte % (Auto) 0.1 0.2 % Immature Granulocyte # (Auto) 0.01 0.02 0.00-0.02 K/uL Hypochromasia PRESENT Anisocytosis PRESENT Tear Drop Cells 1+ 1+ Ovalocytes 1+ 2+ Prothrombin Time 10.0 9.0-12.0 SECONDS Prothromb Time International Ratio 0.9 0.9-1.1 Activated Partial Thromboplast Time 23.3 21.0-31.0 SECONDS Partial Thromboplastin Ratio 0.9 Sodium Level 141 142 136-145 mmol/L Potassium Level 3.7 4.3 3.5-5.1 mmol/L Chloride Level 106 107 98-107 mmol/L Carbon Dioxide Level 29 26 21-32 mmol/L Anion Gap 6.0 9.0 3-11 mmol/L Blood Urea Nitrogen 14 13 7-18 mg/dl Creatinine 0.90 0.92 0.60-1.20 mg/dl Est Creatinine Clear Calc Drug Dose 79.0 77.2 ml/min Estimated GFR () 82.3 80.1 Estimated GFR (Non- 71.0 69.1 BUN/Creatinine Ratio 15.4 13.6 10-20 Random Glucose 108 200 70-99 mg/dl Calcium Level 8.4 8.8 8.5-10.1 mg/dl Magnesium Level 2.1 2.0 1.8-2.4 mg/dl Total Bilirubin 0.2 0.2-1 mg/dl Direct Bilirubin < 0.1 0-0.2 mg/dl Aspartate Amino Transf (AST/SGOT) 15 15-37 U/L Alanine Aminotransferase (ALT/SGPT) 24 12-78 U/L Alkaline Phosphatase 79 45-117 U/L Total Creatine Kinase 37 26-192 U/L Creatine Kinase MB < 0.5 0.5-3.6 ng/ml Creatine Kinase MB Ratio 0-3.0 Troponin I < 0.015 0-0.045 ng/ml Total Protein 6.5 6.4-8.2 gm/dl Albumin 3.1 3.4-5.0 gm/dl Diagnostic Radiology Chest x-ray 11/27/2016 FINDINGS: Central catheter in superior vena cava. No evidence for cardiac enlargement. Chronic pleural reactive change left base. No focal infiltrate. IMPRESSION: Chronic change. No acute process. V/Q scan 11/28/2016 FINDINGS: A few small matched defects seen within the lung bases. No mismatch defects or larger segmental defects. IMPRESSION: Above findings are consistent with a low probability scan. CT chest from 07/15/2016 IMPRESSION: 1. There is no evidence of pulmonary embolus in the main, lobar, or proximal segmental pulmonary arteries. There is been no significant change from study performed one month previously. 2. There is no airspace consolidation or pleural effusion. EKG 11/27/2016 Normal sinus rhythm Normal ECG When compared with ECG of 29-OCT-2016 14:58, No significant change Impression Assessment and Plan Severe persistent asthma in acute exacerbation XIAO Hypoxemia Patient appears to be clinically improving since admission. Taper oxygen as tolerated to a O2 sat of 92%. Continue with prednisone 40 mg daily Continue with ipratropium and Xopenex nebulizers every 4-6 hours when necessary I would restart Symbicort 160 /4.5 and Spiriva. Continue with DVT prophylaxis. Patient advised to avoid known triggers and use peak flow meter for better monitoring of her respiratory symptoms to decrease her readmission rate. She should follow up with Dr. Chua and ROSI Chacon and outpatient. I appreciate the consult. Please call me if you've any further questions or concerns.
[2016-11-28] MEDS ORDERED: HYDROCODONE/ACETAMOPHEN 5/325MG TAB PO PRN (18:00)
[2016-11-28] MEDS: DOCUSATE SODIUM 100 MG CAP PO SCH (21:29)
[2016-11-28] MEDS: CYCLOBENZAPRINE HCL 5 MG TAB PO PRN (23:34)
[2016-11-29] VITALS: O2SAT 96
[2016-11-29 01:49] VITALS: PULSE 71; O2SAT 96
[2016-11-29] MEDS: IPRATROPIUM BROMIDE NEB SOLN 0.02% 2.5 ML VIAL INH SCH ×2 (01:49→07:38)
[2016-11-29] MEDS: LEVALBUTEROL 1.25MG/0.5ML NEB INH SCH ×2 (01:49→07:38)
[2016-11-29 07:03] VITALS: BP 116/77; PULSE 56; TEMP 36.9; O2SAT 98
[2016-11-29] MEDS: CITALOPRAM 40 MG TAB PO SCH (07:50)
[2016-11-29] MEDS: CYANOCOBALAMIN 500 MCG TAB (VIT B-12) PO SCH (07:50)
[2016-11-29] MEDS: PANTOprazole SOD 40 MG TAB PO SCH (07:50)
[2016-11-29] MEDS: CHOLECALCIFEROL 1000 INTER.UNIT TAB PO SCH (07:51)
[2016-11-29] MEDS: AZITHROMYCIN 250 MG TAB PO SCH (07:51)
[2016-11-29] MEDS: POTASSIUM CHLORIDE 10 MEQ TABCR PO SCH (07:51)
[2016-11-29] MEDS: FUROSEMIDE 40 MG TAB PO SCH (07:52)
[2016-11-29] MEDS: HEPARIN SOD 5000 UNIT/0.5 ML CARP SQ SCH (07:52)
[2016-11-29 08:13] LABS: HEMATOCRIT 33.1 % (37-47); MEAN CELL VOLUME 76.4 fL (80-100); MEAN CORPUSCULAR HEMOGLOBIN 21.5 pg (25-34); MEAN CORPUSCULAR HGB CONC 28.1 g/dl (32-36); MEAN PLATELET VOLUME 10.6 fL (7.4-10.4); PLATELET COUNT 270 K/uL (130-400); RED BLOOD COUNT 4.33 M/uL (4.2-5.4); WHITE BLOOD COUNT 11.25 K/uL (4.8-10.8)
[2016-11-29 08:14] LABS: BASO % 0.4 %; BASO ABS # 0.05 K/uL (0-0.2); COMPLETE YES; EOS % 1.3 %; IG% 0.1 %; LYMPH % 18.8 %; LYMPH ABS # 2.12 K/uL (1.2-3.4); MONO % 6.4 %
[2016-11-29 08:15] LABS: BUN/CREATININE RATIO 18.9 (10-20); CALCIUM 8.9 mg/dl (8.5-10.1); CREATININE 0.93 mg/dl (0.60-1.20); MAGNESIUM 2.3 mg/dl (1.8-2.4); POTASSIUM 4.3 mmol/L (3.5-5.1)
--- NOTE | 2016-11-29 09:06 | Progress Note ---
Internal Med Progress Note Date of Service: Nov 29, 2016. Provider Documentation: SUBJECTIVE: Patient is doing well and near her baseline. SOB, cough resolved. No chest pain, fever, chills, leg swelling. Not hypoxic OBJECTIVE: Vital Signs-as noted below Exam: General-AAOX3, No distress Neck-Supple Lungs-AEBE decreased, no wheezing, no rales Heart-S1, S2 normal, no murmur Extremities- No edema Lab data as noted below. ASSESSMENT & PLAN: 56ay F presents with mild asthma exacerbation. ASTHMA EXACERBATION : Resolved -Not hypoxic on RA -S/P IV Solu medrol--> Changed to prednisone PO- to be taken for 5 days. Azithromycin was started for sore throat initially--> finish course for total of 5 days -Pulmonary was consulted- appreciate inputs. Cleared for discharge to home. CHRONIC LOW BACK PAIN Recent T 9 compression fx -Continue with PO home medications. AVOID IV NARCOTICS. XIAO -CPAP Q HS ANXIETY/DEPRESSION -on Celexa -Ativan prn DVT PROPHYLAXIS SCDS Heparin SQ DISPOSITION Ok to discharge home today. Vital Signs: Date Time Temp Pulse Resp B/P (MAP) Pulse Ox O2 Delivery O2 Flow Rate FiO2 11/29/16 08:00 Room Air 11/29/16 07:03 36.9 56 18 116/77 (90) 98 BiPAP 2.0 11/29/16 01:49 71 16 96 BiPAP/CPAP 2.0 11/29/16 00:00 96 Room Air CPAP 11/28/16 23:06 36.7 66 18 110/72 (85) 96 BiPAP 2.0 11/28/16 21:13 2.0 11/28/16 20:21 83 16 93 Room Air 11/28/16 16:00 93 Room Air 11/28/16 15:07 36.6 78 18 110/72 (85) 93 Room Air 11/28/16 13:55 69 16 94 Room Air 11/28/16 13:49 101 94 Lab Results: Results Past 24 Hours Test 11/29/16 07:29 Range/Units White Blood Count 11.25 4.8-10.8 K/uL Red Blood Count 4.33 4.2-5.4 M/uL Hemoglobin 9.3 12.0-16.0 g/dL Hematocrit 33.1 37-47 % Mean Corpuscular Volume 76.4 80-100 fL Mean Corpuscular Hemoglobin 21.5 25-34 pg Mean Corpuscular Hemoglobin Concent 28.1 32-36 g/dl Platelet Count 270 130-400 K/uL Mean Platelet Volume 10.6 7.4-10.4 fL Neutrophils (%) (Auto) 73.0 % Lymphocytes (%) (Auto) 18.8 % Monocytes (%) (Auto) 6.4 % Eosinophils (%) (Auto) 1.3 % Basophils (%) (Auto) 0.4 % Neutrophils # (Auto) 8.20 1.4-6.5 K/uL Lymphocytes # (Auto) 2.12 1.2-3.4 K/uL Monocytes # (Auto) 0.72 0.11-0.59 K/uL Eosinophils # (Auto) 0.15 0-0.5 K/uL Basophils # (Auto) 0.05 0-0.2 K/uL RDW Standard Deviation 53.5 36.4-46.3 fL RDW Coefficient of Variation 19.0 11.5-14.5 % Immature Granulocyte % (Auto) 0.1 % Immature Granulocyte # (Auto) 0.01 0.00-0.02 K/uL Sodium Level 145 136-145 mmol/L Potassium Level 4.3 3.5-5.1 mmol/L Chloride Level 107 98-107 mmol/L Carbon Dioxide Level 31 21-32 mmol/L Anion Gap 7.0 3-11 mmol/L Blood Urea Nitrogen 18 7-18 mg/dl Creatinine 0.93 0.60-1.20 mg/dl Est Creatinine Clear Calc Drug Dose 76.4 ml/min Estimated GFR () 79.1 Estimated GFR (Non- 68.2 BUN/Creatinine Ratio 18.9 10-20 Random Glucose 98 70-99 mg/dl Calcium Level 8.9 8.5-10.1 mg/dl Magnesium Level 2.3 1.8-2.4 mg/dl
[2016-11-29] MEDS ORDERED: PRD20 PO (09:07)
[2016-11-29] MEDS ORDERED: ZTHM250 PO (09:07)
--- NOTE | 2016-11-29 09:13 | Discharge Summary ---
Discharge Summary Date of Service Nov 29, 2016. Discharge Summary Admission Date: Nov 27, 2016 at 19:47 Discharge Date: Nov 29, 2016 Discharge Disposition: Home Principal Diagnosis: 1. Asthma Exacerbation Secondary Diagnoses/Problems: 1. Chronic low back pain 2. XIAO 3. Depression/Anxiety Procedures: Oxygen Nebs IV steroids CXR Consultations: None Pending Studies/Follow-Up: Instructions / Follow-Up Instructions / Follow-Up NEW MEDICATIONS: 1. Azithromycin 250 mg x 4 daily for 4 days 2. Prednisone 40 mg daily x 5 days and than continue with prednisone 10 mg daily as prior to admission FOLLOW UP 1. Follow up with Petra Kelly - 12/04/16 at 10:30 AM Medication Reconciliation New Medications: Azithromycin (Azithromycin) 250 Mg Tab 250 MG PO QAM for 4 Days, #4 TAB 0 Refills Prednisone (Prednisone) 20 Mg Tab 40 MG PO DAILY for 5 Days, #10 TAB Continued Medications: Albuterol Hfa (Ventolin Hfa) 200 Puffs/31140 Mcg Aers 2-4 PUFFS INH Q6H PRN for SOB/Wheezing Cholecalciferol (Vitamin D) 1,000 Unit Tab 1000 INTER.UNIT PO BID Citalopram (Citalopram Hydrobromide) 40 Mg Tab 40 MG PO QAM Cyanocobalamin (Vitamin B-12) 1,000 Mcg Tab 1000 MCG PO QAM, TAB Cyclobenzaprine HCl (Cyclobenzaprine HCl) 5 Mg Tab 5 MG PO HS PRN for Muscle Spasm Docusate Sodium (Colace) 100 Mg Cap 200 MG PO HS, CAP Epinephrine (Epipen 2-Deshawn) 0.3 Mg Inj 0.3 MG IM UD PRN for ALLERGIC REACTION Furosemide (Lasix) 40 Mg Tab 40 MG PO DAILY, #30 TAB Home O2 Therapy (Oxygen) Gas 2 LITERS NA HS USE DIRECTED WITH C PAP Hydrocodone/Acetaminophen 5MG/325MG ([place] 5MG/325MG) Tab 1-2 TABS PO Q4-6H PRN for Pain, TAB Immune Globulin (Human) Iv (Privigen) 5 Gm/50 Ml Inj 1 DOSE IV MONTHLY Levalbuterol Hcl (Levalbuterol Hcl) 1.25 Mg/3 Ml Neb 1.25 MG INH Q4 PRN for SOB/Wheezing, #1 Lorazepam (Ativan) 1 Mg Tab 2 MG PO HS PRN for Anxiety, TAB Lorazepam (Lorazepam) 1 Mg Tab 1 MG PO DAILY PRN for Anxiety Omeprazole (Prilosec) 20 Mg Cap 20 MG PO BID Potassium Chloride (Micro-K Ext Rel) 10 Meq Capcr 10 MEQ PO DAILY, #30 CAP Prednisone (Prednisone) 10 Mg Tab 10 MG PO DIRECTED, #29 TAB 40 mg for 4 days, 30 mg for 3 days, 20 mg for 2 days, then resume your 10 mg daily. Discontinued Medications: Oxycodone HCl (Oxycodone HCl) 5 Mg Tab 5 MG PO Q4H PRN for Breakthrough Pain Prednisone (Prednisone) 10 Mg Tab 10 MG PO DAILY, TAB Admission Information HPI (per Admitting provider): 56yf with PMH of asthma,XIAO, chronic back pain multiple admissions for asthma and back pain presents with asthma exacerbation and worsening of back pain. Patient recently had T9 compression fracture and taking extra pain pills as prescribed by ortho. Since last two days patient having increased sob. Denies cough. Afebrile.Has sore throat. Using nebs at home but not working. Supposed to see pulmonary Semaj Birch tomorrow but since her symptoms are worsening she came to ER today. Patient says whenever her asthma attacks her back pain gets worse. Requesting for pain meds. Denies headaches, dizziness or blurred vision. No nausea or vomiting. No diarrhea. Uses stool softeners.No rash. No leg swelling. Currently resting comfortably and hemodynamically stable. Physical Exam (per Admitting): General Appearance: no apparent distress Head: normocephalic, atraumatic Eyes: normal inspection, PERRL ENT: normal ENT inspection, hearing grossly normal, pharynx normal Neck: supple, no adenopathy, thyroid normal Respiratory/Chest: chest non-tender, lungs clear, normal breath sounds, no respiratory distress, no accessory muscle use, + wheezing Cardiovascular: regular rate, rhythm, no edema, no gallop, no murmur Abdomen/GI: normal bowel sounds, non tender, soft, no organomegaly, no pulsatile mass Extremities/Musculoskelatal: normal inspection, no calf tenderness, no pedal edema Neurologic/Psych: form designer II-XII nml as tested, alert, normal mood/affect, oriented x 3 Skin: normal color, warm/dry, no rash Hospital Course 56ay F presents with mild asthma exacerbation. ASTHMA EXACERBATION : Resolved -Not hypoxic on RA -S/P IV Solu medrol--> Changed to prednisone PO- to be taken for 5 days. Azithromycin was started for sore throat initially--> finish course for total of 5 days -Pulmonary was consulted- appreciate inputs. Cleared for discharge to home. CHRONIC LOW BACK PAIN Recent T 9 compression fx -Continue with PO home medications. AVOID IV NARCOTICS. XIAO -CPAP Q HS ANXIETY/DEPRESSION -on Celexa -Ativan prn DVT PROPHYLAXIS SCDS Heparin SQ DISPOSITION Ok to discharge home today. Total time spent on discharge = 28 minutes This includes examination of the patient, discharge planning, medication reconciliation, and communication with other providers. Discharge Instructions Discharge Goals Goal(s): Prevent Disease Progression Activity Recommendations Activity Limitations: resume your previous activity . Instructions / Follow-Up Instructions / Follow-Up NEW MEDICATIONS: 1. Azithromycin 250 mg x 4 daily for 4 days 2. Prednisone 40 mg daily x 5 days and than continue with prednisone 10 mg daily as prior to admission FOLLOW UP 1. Follow up with Petra Kelly - 12/04/16 at 10:30 AM Current Hospital Diet Patient's current hospital diet: AHA Diet (Heart Healthy) Discharge Diet Recommended Diet: AHA Diet (Heart Healthy) Pending Studies Studies pending at discharge: no Medical Emergencies . Who to Call and When: Medical Emergencies: If at any time you feel your situation is an emergency, please call 911 immediately. . Non-Emergent Contact Non-Emergency issues call your: Primary Care Provider . . "Provider Documentation" section prepared by Nydia Martinez. . VTE Core Measure Inpt VTE Proph given/why not?: Unfractionated heparin SQ, SCD's
[2016-11-29 09:15] VITALS: BP 116/77; PULSE 56; TEMP 36.9; O2SAT 98
[2017-02-18] MEDS ORDERED: VNTHFA/IN INH (08:31)
== END 2016-11-29 10:33 | disposition home or self-care (01) | DRG 202 ==
LOC: C.EDB 16:09 → C.MED 19:47 → ENRESERV 20:06
PROVIDERS: ADMIT Internal Medicine; ATTEND Internal Medicine
DX: J45.51 Severe persistent asthma with (acute) exacerbation (principal); E27.40 Unspecified adrenocortical insufficiency; G47.33 Obstructive sleep apnea (adult) (pediatric); I25.2 Old myocardial infarction; M54.5 Low back pain; E66.01 Morbid (severe) obesity due to excess calories; Z68.32 Body mass index [BMI] 32.0-32.9, adult; F32.9 Major depressive disorder, single episode, unspecified; E78.5 Hyperlipidemia, unspecified; K21.9 Gastro-esophageal reflux disease without esophagitis; F41.9 Anxiety disorder, unspecified; M81.0 Age-related osteoporosis without current pathological fracture; K57.90 Diverticulosis of intestine, part unspecified, without perforation or abscess without bleeding; E88.01 Alpha-1-antitrypsin deficiency; R31.29 Other microscopic hematuria; H26.9 Unspecified cataract; Z88.3 Allergy status to other anti-infective agents; Z88.8 Allergy status to other drugs, medicaments and biological substances; Z91.041 Radiographic dye allergy status; Z88.6 Allergy status to analgesic agent; Z86.711 Personal history of pulmonary embolism; Z87.891 Personal history of nicotine dependence; Z79.899 Other long term (current) drug therapy; Z90.49 Acquired absence of other specified parts of digestive tract; Z82.49 Family history of ischemic heart disease and other diseases of the circulatory system; Z84.89 Family history of other specified conditions; Z80.8 Family history of malignant neoplasm of other organs or systems; Z83.79 Family history of other diseases of the digestive system; Z84.1 Family history of disorders of kidney and ureter; Z80.3 Family history of malignant neoplasm of breast

== ENCOUNTER → 2016-12-12 | Outpatient (CLI) | payer OTHER ==
[~2016-12-12] MED LIST changes: -ALEN70TA4 PO; +ATV/1 PO; +ATV1 PO; +CHOL100010 PO; -CITA40TA12 PO; +CITA40TA4 PO; +CYAN10005 PO; +DOCU-94 PO; +EPP3/2 IM; +FLX/5 PO; -FLX5 PO; -GLIM1TAB2 PO; +HYDR-5688 PO; -IPRASOL4 NEB; +LEVA1.258 INH; +LSX40 PO; +OMEP20CA9 PO; +OXGN; +POTA10CA28 PO; +PRD20 PO; +VNTHFA/IN INH; +ZTHM250 PO; +[UNRECOGNIZED DRUG - CODE] IV
[2016-12-12 18:24] LABS: BASO % 0.8 %; BASO ABS # 0.09 K/uL (0-0.2); COMPLETE YES; EOS % 2.7 %; HEMATOCRIT 34.3 % (37-47); IG% 0.3 %; LYMPH % 21.2 %; LYMPH ABS # 2.48 K/uL (1.2-3.4); MEAN CELL VOLUME 76.6 fL (80-100); MEAN CORPUSCULAR HEMOGLOBIN 21.4 pg (25-34); MEAN PLATELET VOLUME 11.2 fL (7.4-10.4); MONO % 7.7 %; NEUT % 67.3 %; PLATELET COUNT 302 K/uL (130-400); RED BLOOD COUNT 4.48 M/uL (4.2-5.4); WHITE BLOOD COUNT 11.71 K/uL (4.8-10.8)
[2016-12-12 18:42] LABS: IMMUNOGLOBULN M 76.5 mg/dL (40-230)
== END | disposition home or self-care (01) ==
LOC: C.LABMFLN 12:13
PROVIDERS: ATTEND Physician Assistant
DX: D80.0 Hereditary hypogammaglobulinemia (principal)

== ENCOUNTER 2017-02-18 13:49 | Inpatient (IN) | payer OTHER ==
[~2017-02-18] VITALS: Ht 165.1 cm; Wt 93.1 kg
[~2017-02-18 13:49] MED LIST changes: -ATV/1 PO; -ATV1 PO; -CHOL100010 PO; -CITA40TA4 PO; -CYAN10005 PO; -DOCU-94 PO; -EPP3/2 IM; -FLX/5 PO; -HYDR-5688 PO; -LSX40 PO; -OMEP20CA9 PO; -OXGN; -OXYC1TAB3 PO; -[UNRECOGNIZED DRUG - CODE] IV
[2017-02-18] MEDS ORDERED: [UNRECOGNIZED DRUG - CODE] IV (14:40)
[2017-02-18] MEDS ORDERED: MoRPHine SULFATE 10 MG/ML CARP/VIAL IV STA (15:06)
[2017-02-18] MEDS ORDERED: METHYLPREDNISOLONE 125 MG VIAL IV STA (15:06)
[2017-02-18] MEDS ORDERED: ONDANSETRON INJ 2 MG/ML 2 ML VIAL IV STA (15:06)
[2017-02-18] MEDS ORDERED: ALBUT/IPRATROP 3MG/0.5MG NEB 3 ML VIAL INH ONE (15:15)
[2017-02-18 15:25] VITALS: PULSE 69; O2SAT 96
[2017-02-18 15:31] LABS: BASO % 0.8 %; BASO ABS # 0.07 K/uL (0-0.2); COMPLETE YES; HEMATOCRIT 34.9 % (37-47); IG% 0.2 %; LYMPH % 23.2 %; LYMPH ABS # 2.09 K/uL (1.2-3.4); MEAN CELL VOLUME 75.7 fL (80-100); MEAN CORPUSCULAR HEMOGLOBIN 22.1 pg (25-34); MEAN CORPUSCULAR HGB CONC 29.2 g/dl (32-36); MEAN PLATELET VOLUME 9.7 fL (7.4-10.4); MONO % 8.6 %; NEUT % 63.2 %; PLATELET COUNT 222 K/uL (130-400); RED BLOOD COUNT 4.61 M/uL (4.2-5.4)
[2017-02-18 15:45] LABS: INR 0.9 (0.9-1.1); PROTHROMBIN TIME (PATIENT) 9.7 SECONDS (9.0-12.0)
[2017-02-18] MEDS ORDERED: CHOL100010 PO (15:47)
[2017-02-18 15:53] LABS: ALT/SGPT 19 U/L (12-78); BLOOD UREA NITROGEN 11 mg/dl (7-18); CALCIUM 8.5 mg/dl (8.5-10.1); CARBON DIOXIDE 29 mmol/L (21-32); CHLORIDE 106 mmol/L (98-107); CREATININE 0.83 mg/dl (0.60-1.20); GLUCOSE 103 mg/dl (70-99); POTASSIUM 4.1 mmol/L (3.5-5.1); SODIUM 140 mmol/L (136-145)
[2017-02-18 15:59] LABS: ALB/GLOB RATIO 0.9 (0.9-2); ALKALINE PHOSPHATASE 57 U/L (45-117); AST/SGOT 9 U/L (15-37)
[2017-02-18] MEDS ORDERED: PRED10TA PO (16:02)
[2017-02-18] MEDS ORDERED: POTA10CA28 PO (16:02)
[2017-02-18] MEDS ORDERED: LSX40 PO (16:02)
[2017-02-18] MEDS ORDERED: EPP3/2 IM (16:07)
[2017-02-18] MEDS ORDERED: OXGN (16:13)
[2017-02-18] MEDS ORDERED: OMEP20CA9 PO (16:25)
[2017-02-18] MEDS ORDERED: CITA40TA4 PO (16:49)
[2017-02-18] MEDS ORDERED: FLX/5 PO (16:49)
--- NOTE | 2017-02-18 17:15 | DIAGNOSTIC IMAGING REPORT ---
CHEST 2 VIEWS ROUTINE CLINICAL HISTORY: Respiratory distress COMPARISON STUDY: 11/27/2016 FINDINGS: The heart is normal in size. There is mild elevation right hemidiaphragm. There is no failure. There is no lobar consolidation. Increased markings at both lung bases are likely atelectatic. There is a lower thoracic compression deformity.[ IMPRESSION: 1. Mild elevation of the right hemidiaphragm 2. Bibasilar opacities, likely atelectatic Electronically signed by: Jules Lester M.D. 02/18/2017 5:14 PM Dictated Date/Time: 02/18/2017 5:13 PM
[2017-02-18] MEDS ORDERED: DOCU-94 PO (17:39)
--- NOTE | 2017-02-18 18:02 | EMERGENCY ROOM VISIT NOTE ---
ED Visit Note First contact with patient: 14:51 HPI: h/o asthma here with sob, wheezing. PE: AFVSS, NAD NC/AT, mm dry ST, no murmurs Diffuse wheezing throughout Abd soft NT/ND Ext: no edema, erythema Neuro: grossly intact Plan: WBC wnl. CXR with ?infiltrate/atelectasis. Ddimer elevated but with contrast allergy. Steroids, nebs, admit. I reviewed the patient's past medical history, medications, and visit nursing notes. I discussed the case with the physician assistant federal public defender, examined the patient, and agree with the findings and plan as documented in the physician assistants note.
[2017-02-18] MEDS ORDERED: ATV/1 PO (18:40)
[2017-02-18] MEDS ORDERED: CYAN10005 PO (19:15)
[2017-02-18] MEDS ORDERED: ONDANSETRON INJ 2 MG/ML 2 ML VIAL IV PRN (19:30)
[2017-02-18] MEDS ORDERED: OXYC1TAB3 PO (19:42)
[2017-02-18] MEDS ORDERED: CYCLOBENZAPRINE HCL 5 MG TAB PO PRN (19:45)
[2017-02-18] MEDS ORDERED: HYDROCODONE/ACETAMOPHEN 5/325MG TAB ONE (20:03)
[2017-02-18] MEDS ORDERED: ATV1 PO (20:38)
[2017-02-18] MEDS ORDERED: HYDR-5688 PO (20:40)
[2017-02-18 20:44] VITALS: BP 138/81; PULSE 91; TEMP 37.1; O2SAT 95; Ht 165.1 cm; Wt 93.1 kg
--- NOTE | 2017-02-18 20:50 | History and Physical ---
History & Physical Date & Time of Service: Feb 18, 2017 at 19:51 Chief Complaint: Asthma Primary Care Physician: Petra Kelly History of Present Illness Source: patient Pt is 56 y/o F with hx asthma, adrenal insufficiency secondary to chronic steroid use, iron deficiency anemia, chronic back pain, GERD, depression/ anxiety presents with c/o SOB and wheezing x 2 days. Pt with significant asthma hx with multiple ER visits and hospitalizations over the years. Is not home oxygen dependent. States increased SOB and wheezing last night and used her albuterol without relief. SOB aggravated with exertion. C/O chest tightness and sensation weights are on her chest. Reports 10 days ago she felt like she was getting nasal congestion and had coughing episode one morning with purulent sputum. She took one dose of DayQuil at that time and no further cough or congestion. Pt states doesn't know specific triggers for her asthma, as in past has had flares without known triggers. Does report carpet seems to flare asthma and couple months ago moved to place without carpet and hasn't had to use albuterol for several months since, until past 2 days. Follows with [facility] [place]. Reports stopping all her asthma maintenance medicine in 09/2016 as she had been tried on multiple things without improvement. Just uses albuterol prn wheezing at this time.Reports hx several bronchoscopies to remove mucous plugs. Also reports hx bronchial thermoplasty. Also c/o darker urine the past couple of days. Denies dysuria, hematuria, urinary frequency. Hx chronic back pain secondary to T9 compression fracture and on chronic pain meds for that. Denies fever/chills, diaphoresis, N/V/D/C, LIN, dizziness, syncope, vision changes, neck pain, palpitations, hemoptysis, sore throat, choking, otalgia, abdominal pain, flank pain, paresthesias, weakness, extremity weakness, rashes, increased lower extremity edema, extremity pain or erythema, prolonged immobilization. Seen in ER today, BP 159/95, pulse 93-106, Resp: 24, had drop in O2 to 87% and was placed on 4L oxygen and O2 up to 98%. Pt given hour long duoneb tx Elevated D-dimer 710, normal WBC, Hgb:10.2, HCT: 34.9 (chronic and stable for pt ), normal troponin, CPK, CKMB, BNP was 38. CXR shows bibasilar opacities likely atelectasis, mild elevation R hemidiaphragm. Negative rapid influenza. EKG: NSR. Was given Solumedrol 125mg IV. Pt reports 30 years ago had "one hive" from IVP dye. States has had IVP since but has always been premedicated and has not had any hives, anaphylaxis. Hx elevated D-dimer 10/2016 (860). Hx PE in 2010 after abdominal hernia repair. 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 (2) Anxiety Status: Chronic (3) Asthma Status: Chronic (4) Chronic anemia Status: Chronic (5) Chronic back pain Status: Chronic (6) Depression Status: Chronic (7) Deterioration of spinal disc of lower back Status: Chronic (8) Dyslipidemia Status: Chronic (9) GERD (gastroesophageal reflux disease) Status: Chronic (10) H/O adrenal insufficiency Status: Chronic (11) History of colonic diverticulitis Status: Chronic (12) History of pulmonary embolism Status: Chronic (13) Immunoglobulin deficiency Status: Chronic (14) Microscopic hematuria Permanent Comment: evaluated by Urology; no significant path per patient Status: Chronic (15) Osteoporosis Status: Chronic (16) Sleep apnea Status: Chronic (17) Vertebral fracture, closed Status: Chronic Surgical Problems: (1) H/O sinus surgery Status: Chronic (2) History of bronchoscopy Permanent Comment: for mucous plugs Status: Chronic (3) History of carpal tunnel surgery Status: Chronic (4) S/P cardiac cath Status: Chronic (5) S/P herniorrhaphy Status: Chronic (6) Status post appendectomy Status: Chronic (7) Status post hernia repair Status: Chronic (8) Status post partial colectomy Status: Chronic (9) Status post thermoplasty Status: Chronic (10) Status post thermoplasty Status: Chronic Family History FH: heart disease FATHER FH: sleep apnea MOTHER FHx: cancer FHx: gallbladder disease Hypertension MOTHER Kidney disease MOTHER Social History Smoking Status: Former Smoker (Quit 11/2003, smoked 1ppd x 30 years) Smokeless Tobacco Use: No Alcohol Use: none Drug Use: none Marital Status: Housing status: lives with significant other Occupational Status: disabled Immunizations History of Influenza Vaccine: Yes Influenza Vaccine Date: Jan 25, 2016 History of Tetanus Vaccine?: Yes Tetanus Immunization Date: Aug 16, 2007 History of Pneumococcal: Yes Pneumococcal Date: Jan 02, 2016 Multi-Drug Resistant Organisms History of MDRO: No Allergies Coded Allergies: Aspirin (Verified Allergy, Intermediate, HIVES, 10/29/16) Ibuprofen (Verified Allergy, Intermediate, HIVES, 10/29/16) Levofloxacin (Verified Allergy, Intermediate, HIVES, 10/29/16) Iodinated Diagnostic Agents (Verified Allergy, Unknown, HIVES, 10/29/16) Pregabalin (Verified Adverse Reaction, Intermediate, SEVERE DEPRESSION, ) Zolpidem (Verified Adverse Reaction, Intermediate, HALLUCINATIONS, 10/29/16 ) Gabapentin (Verified Adverse Reaction, Mild, GOOFY THOUGHTS, 10/29/16) Home Medications Scheduled Cholecalciferol (Vitamin D), 1,000 INTER.UNIT PO BID Citalopram (Citalopram Hydrobromide), 40 MG PO QAM Cyanocobalamin (Vitamin B-12), 1,000 MCG PO QAM Docusate Sodium (Colace), 200 MG PO HS Furosemide (Furosemide), 40 MG PO Q2D Home O2 Therapy (Oxygen), 2 LITERS NA HS Immune Globulin (Human) Iv (Privigen), 1 DOSE IV MONTHLY Omeprazole (Prilosec), 20 MG PO BID Potassium Chloride (Micro-K Ext Rel), 10 MEQ PO Q2D Prednisone (Prednisone), 10 MG PO DAILY Scheduled PRN Albuterol Hfa (Ventolin Hfa), 2-4 PUFFS INH Q6H PRN for SOB/Wheezing Cyclobenzaprine HCl (Cyclobenzaprine HCl), 5 MG PO HS PRN for Muscle Spasm Epinephrine (Epipen 2-Deshawn), 0.3 MG IM UD PRN for ALLERGIC REACTION Hydrocodone/Acetaminophen 5MG/325MG ([place] 5MG/325MG), 1-2 TABS PO Q4-6H PRN for Pain Levalbuterol Hcl (Levalbuterol Hcl), 1.25 MG INH Q4 PRN for SOB/Wheezing Lorazepam (Ativan), 2 MG PO HS PRN for Anxiety Lorazepam (Lorazepam), 1 MG PO DAILY PRN for Anxiety Oxycodone Ir (Roxicodone Ir), 5 MG PO Q4H PRN for SVR Review of Systems Ten systems reviewed and negative, except as noted in HPI Physical Exam Vital Signs Date Time Temp Pulse Resp B/P (MAP) Pulse Ox O2 Delivery O2 Flow Rate FiO2 02/18/17 19:00 95 21 99 02/18/17 17:49 99 24 97 02/18/17 17:19 105 16 87 02/18/17 16:49 102 20 99 02/18/17 16:45 100 Nebulizer 7.0 02/18/17 16:19 87 19 159/95 100 02/18/17 16:18 93 19 159/95 100 Nebulizer 7.0 02/18/17 15:49 70 18 100 02/18/17 15:49 100 Mask 02/18/17 15:46 70 02/18/17 15:25 69 18 96 Room Air 02/18/17 13:52 37.0 General Appearance: WD/WN, no apparent distress (pt talking in full sentences while on oxygen) Head: normocephalic, atraumatic Eyes: normal inspection, PERRL, EOMI, sclerae normal ENT: normal ENT inspection, hearing grossly normal, TMs normal, pharynx normal Neck: supple, no adenopathy, trachea midline Respiratory/Chest: chest non-tender, no respiratory distress, no accessory muscle use, + pertinent finding (decreased breath sounds throughout with mild expiratory wheezing) Cardiovascular: regular rate, rhythm, no edema, no murmur, normal peripheral pulses Abdomen/GI: normal bowel sounds, non tender, soft, + pertinent finding (+well healed surgical scars) Back: normal inspection, + pertinent finding (limited ROM secondary to discomfort, no CVA tenderness) Extremities/Musculoskelatal: normal inspection, no calf tenderness, normal capillary refill, no pedal edema, normal range of motion Neurologic/Psych: no motor/sensory deficits, alert, normal mood/affect, oriented x 3 Skin: normal color, warm/dry, + pertinent finding (port to left upper chest) Lymphatic: no adenopathy Diagnostics Laboratory Results Results Past 24 Hours Test 02/18/17 15:06 02/18/17 15:20 Range/Units Creatine Kinase MB Ratio 0-3.0 White Blood Count 9.00 4.8-10.8 K/uL Red Blood Count 4.61 4.2-5.4 M/uL Hemoglobin 10.2 12.0-16.0 g/dL Hematocrit 34.9 37-47 % Mean Corpuscular Volume 75.7 80-100 fL Mean Corpuscular Hemoglobin 22.1 25-34 pg Mean Corpuscular Hemoglobin Concent 29.2 32-36 g/dl Platelet Count 222 130-400 K/uL Mean Platelet Volume 9.7 7.4-10.4 fL Neutrophils (%) (Auto) 63.2 % Lymphocytes (%) (Auto) 23.2 % Monocytes (%) (Auto) 8.6 % Eosinophils (%) (Auto) 4.0 % Basophils (%) (Auto) 0.8 % Neutrophils # (Auto) 5.69 1.4-6.5 K/uL Lymphocytes # (Auto) 2.09 1.2-3.4 K/uL Monocytes # (Auto) 0.77 0.11-0.59 K/uL Eosinophils # (Auto) 0.36 0-0.5 K/uL Basophils # (Auto) 0.07 0-0.2 K/uL RDW Standard Deviation 51.0 36.4-46.3 fL RDW Coefficient of Variation 18.4 11.5-14.5 % Immature Granulocyte % (Auto) 0.2 % Immature Granulocyte # (Auto) 0.02 0.00-0.02 K/uL Prothrombin Time 9.7 9.0-12.0 SECONDS Prothromb Time International Ratio 0.9 0.9-1.1 Activated Partial Thromboplast Time 26.9 21.0-31.0 SECONDS Partial Thromboplastin Ratio 1.0 D-Dimer 710 0-500 ug/L FEU Sodium Level 140 136-145 mmol/L Potassium Level 4.1 3.5-5.1 mmol/L Chloride Level 106 98-107 mmol/L Carbon Dioxide Level 29 21-32 mmol/L Anion Gap 6.0 3-11 mmol/L Blood Urea Nitrogen 11 7-18 mg/dl Creatinine 0.83 0.60-1.20 mg/dl Est Creatinine Clear Calc Drug Dose 84.6 ml/min Estimated GFR () 90.7 Estimated GFR (Non- 78.3 BUN/Creatinine Ratio 13.0 10-20 Random Glucose 103 70-99 mg/dl Calcium Level 8.5 8.5-10.1 mg/dl Total Bilirubin 0.2 0.2-1 mg/dl Aspartate Amino Transf (AST/SGOT) 9 15-37 U/L Alanine Aminotransferase (ALT/SGPT) 19 12-78 U/L Alkaline Phosphatase 57 45-117 U/L Creatine Kinase MB 0.5 0.5-3.6 ng/ml Troponin I < 0.015 0-0.045 ng/ml Pro-B-Type Natriuretic Peptide 38 0-900 pg/ml Total Protein 6.9 6.4-8.2 gm/dl Albumin 3.3 3.4-5.0 gm/dl Globulin 3.6 2.5-4.0 gm/dl Albumin/Globulin Ratio 0.9 0.9-2 Diagnostic Radiology CXR: IMPRESSION: 1. Mild elevation of the right hemidiaphragm 2. Bibasilar opacities, likely atelectatic EKG EKG: NSR rate 84, no significant ST elevation noted Impression Assessment and Plan Pt is 56yo F with significant hx asthma and exacerbations, GERD, iron deficiency anemia, chronic back pain, depression/anxiety, adrenal insufficiency secondary to chronic steroid use. ASTHMA EXACERBATION WITH ACUTE HYPOXIA -Duonebs ever 4 hours and Q2 hrs prn wheezing/SOB -O2 as per protocol -Solu-medrol 60mg Q 8 hours -pulmonology consult - [facility] -CBC in am -hold antibiotics at this time, afebrile, no leukocytosis, no infiltrate on CXR shows bibasilar atelectasis will order incentive spirometry -elevated D-dimer will do venous doppler bilateral lower extremities to r/o DVT and CT angio to r/o PE in am - Pt will be pre-medicated with benadryl 50mg po one hour prior to CT scan and solu-medrol 60mg one hour prior to CT scan CHRONIC LOW BACK PAIN -hx T9 compression fracture 10/2016 and chronic pain -continue home pain meds - norco 5/325mg 1 tab po Q4 hrs prn pain, oxy IR 5mg 1 tab po ever 4 hrs prn breakthrough pain OBSTRUCTIVE SLEEP APNEA -CPAP at bedtime as per home settings ANXIETY/DEPRESSION -celexa daily -ativan 1mg po in am prn anxiety. ativan 2mg in evening prn anxiety DARK URINE -Will add UA as pt describes darker urine DVT PROPHYLAXIS -lovenox DISPOSITION -admit Tele -Follows with Petra NICHOLAS for routine care Pt was seen with Dr Jenkins Attending Note: Patient is a 56 Yr female with Asthma, XIAO and other comorbidities who had multiple admissions for asthma exacerbation and mucous plugging, S/P Bronchial thermoplasty many years ago who follows with presents with history of SOB, wheezing, chest tightness. CXR should findings suggestive of atelectasis. Patient is no on any maintenance inhalers for asthma management and she states she has been on multiple medications previously with out much help. Physical Exam: Vitals signs as noted above General Appearance:Moderately built and nourished, no apparent distress Head: normocephalic, Atraumatic Eyes: normal inspection, EOMI, PERRL, Anicteric Neck: supple, Trachea midline Respiratory/Chest: Decreased breath sounds, mild expiratory wheezes Cardiovascular: S1, S2, No murmur Abdomen/GI:Soft, Non tender, Bowel sounds present Extremities/Musculoskelatal:normal inspection, no edema Neurologic/Psych:AAOX3, grossly no focal neurological deficits Skin:normal color,warm Assessment and Plan: Acute on chronic Asthma Exacerbation with hypoxia CXR: no signs of consolidation No indication for antibiotics IV solumedrol, bronchodilators Oxygen support per protocol Repeat labs in AM Chronic Elevation of D-dimer: Check Venous doppler, CTA with premedication given H/O IV dye allergy Chronic Microcytic anemia: Hb at baseline I personally reviewed the record. Patient is interviewed and examined at bedside. Patient's care is coordinated with Divya Jean PA-C. Please refer to the documentation above for details of patient's presentation and for discussion of other issues. Level of Care Telemetry Resuscitation Status FULL RESUSCITATION VTE Prophylaxis VTE Risk Assessment Done? Y/N: Yes Risk Level: Moderate Given or contraindicated: Enoxaparin (Lovenox)SQ
[2017-02-18] MEDS ORDERED: ENOXAPARIN 40 MG/0.4 ML SYR SC SCH (21:00)
--- NOTE | 2017-02-18 21:45 | DIAGNOSTIC IMAGING REPORT ---
ULTRASOUND VENOUS DOPPLER LWR EXT BILA CLINICAL HISTORY: Leg swelling. Elevated d-dimer. COMPARISON STUDY: 06/20/2016 FINDINGS: Real-time and color flow Doppler imaging were performed. Flow was seen within the femoral, popliteal and calf veins with no intraluminal thrombus demonstrated. The saphenous vein is patent. IMPRESSION: No evidence of lower extremity DVT. Electronically signed by: Jules Lester M.D. 02/18/2017 9:44 PM Dictated Date/Time: 02/18/2017 9:44 PM
--- NOTE | 2017-02-18 22:13 | EMERGENCY ROOM VISIT NOTE ---
History First contact with patient: 14:51 Chief Complaint: RESPIRATORY PROBLEMS Stated Complaint: ASTHMA Nursing Triage Summary: triage note: pt reports increased shortness of breath and wheezing since this am. pt reports hx of asthma. History of Present Illness The patient is a 56 year old female, history of asthma and CHF, who presents to the Emergency Room with complaints of shortness of breath and wheezing since this morning. The patient reports that she didn't noticed some chest tightness over the past 2 days. The patient reports that she never really develops a cough when she has an asthma exacerbation. She reports a squeezing tight sensation around the base of her chest. She denies any diaphoresis, nausea or vomiting. The patient has not noticed any peripheral edema. The patient is currently under the management of Semaj Birch PA-C. The patient reports that she stopped taking her asthma medications for approximately one year ago. Her last asthma exacerbation was approximate 6 months ago. She does have a rescue inhaler at home that did help some with her symptoms this morning. And has required bronchoscopy in the past for removal of mucous plugs. She denies any history of bacterial or fungal infections. The patient has been on chronic steroids in the past, and has suffered thoracic vertebrae fractures and cataracts. The patient reports that she came from Dr. Fernandez's office this morning, undergoing bilateral knee viscous supplementation injections. The patient does take OxyContin 10 mg twice daily, and [place] 5/325 as needed for breakthrough pain for chronic back pain. She is under the management of Dr. Sadler. Her PCP is Dr. Jacobson. The patient reports that the last time she had this bad of an asthma exacerbation, she was admitted because her oxygen saturation dropped with ambulation. She reports that her peak flow this morning was under 100. Review of Systems HEENT: Denies dizziness, visual problems, hearing loss, tinnitus. Denies difficulty swallowing or oral lesions. PULMONARY: Denies cough, sputum production or hemoptysis. CARDIOVASCULAR: Denies chest pain, palpitations, dyspnea on exertion, orthopnea or peripheral edema. GASTROINTESTINAL: Denies diarrhea, constipation, nausea, vomiting, or abdominal pain. GENITOURINARY: Denies dysuria, frequency, urgency or nocturia. NEUROLOGIC: Denies history of epilepsy, CVA, TIA or chronic headaches. MUSCULOSKELETAL: Denies history of joint tenderness/swelling. SKIN: Denies rashes or lesions. PSYCHIATRIC: Denies history of depression or mental illness. ENDOCRINE: Denies history of diabetes or thyroid disordersn. 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 (15) Microscopic hematuria (16) Osteoporosis (17) Sleep apnea (18) Vertebral fracture, closed Surgical Problems: (1) H/O sinus surgery (2) History of bronchoscopy (3) History of carpal tunnel surgery (4) S/P cardiac cath (5) S/P herniorrhaphy (6) Status post appendectomy (7) Status post hernia repair (8) Status post partial colectomy (9) Status post thermoplasty (10) Status post thermoplasty Family History FH: heart disease FATHER FH: sleep apnea MOTHER FHx: cancer FHx: gallbladder disease Hypertension MOTHER Kidney disease MOTHER Social History Smoking Status: Former Smoker Alcohol Use: none Drug Use: none Marital Status: Housing Status: lives with significant other Occupation Status: unemployed Current/Historical Medications Scheduled Cholecalciferol (Vitamin D), 1,000 INTER.UNIT PO BID Citalopram (Citalopram Hydrobromide), 40 MG PO QAM Cyanocobalamin (Vitamin B-12), 1,000 MCG PO QAM Docusate Sodium (Colace), 200 MG PO HS Furosemide (Furosemide), 40 MG PO Q2D Home O2 Therapy (Oxygen), 2 LITERS NA HS Immune Globulin (Human) Iv (Privigen), 1 DOSE IV MONTHLY Omeprazole (Prilosec), 20 MG PO BID Potassium Chloride (Micro-K Ext Rel), 10 MEQ PO Q2D Prednisone (Prednisone), 10 MG PO DAILY Scheduled PRN Albuterol Hfa (Ventolin Hfa), 2-4 PUFFS INH Q6H PRN for SOB/Wheezing Cyclobenzaprine HCl (Cyclobenzaprine HCl), 5 MG PO HS PRN for Muscle Spasm Epinephrine (Epipen 2-Deshawn), 0.3 MG IM UD PRN for ALLERGIC REACTION Hydrocodone/Acetaminophen 5MG/325MG ([place] 5MG/325MG), 1-2 TABS PO Q4-6H PRN for Pain Levalbuterol Hcl (Levalbuterol Hcl), 1.25 MG INH Q4 PRN for SOB/Wheezing Lorazepam (Ativan), 2 MG PO HS PRN for Anxiety Lorazepam (Lorazepam), 1 MG PO DAILY PRN for Anxiety Oxycodone Ir (Roxicodone Ir), 5 MG PO Q4H PRN for SVR Physical Exam Vital Signs Date Time Temp Pulse Resp B/P (MAP) Pulse Ox O2 Delivery O2 Flow Rate FiO2 02/18/17 19:00 95 21 99 02/18/17 17:49 99 24 97 02/18/17 17:19 105 16 87 02/18/17 16:49 102 20 99 02/18/17 16:45 100 Nebulizer 7.0 02/18/17 16:19 87 19 159/95 100 02/18/17 16:18 93 19 159/95 100 Nebulizer 7.0 02/18/17 15:49 70 18 100 02/18/17 15:49 100 Mask 02/18/17 15:46 70 02/18/17 15:25 69 18 96 Room Air 02/18/17 13:52 37.0 Physical Exam CONSTITUTIONAL: Healthy and well nourished. Alert and oriented X 3 with positive affect. Patient appears in mild to moderate respiratory discomfort with audible expiratory wheezing. HEENT: Normocephalic, atraumatic. Pupils equal, round and reactive. Ears and nares are clear. No rhinorrhea or conjunctival injection/pallor. OROPHARYNX: No posterior pharyngeal erythema or tonsillar hypertrophy/exudates. NECK: Full active range of motion without discomfort. No obvious JVD or carotid bruits. RESPIRATORY: Auscultation shows expiratory wheezing in all mccain. The patient is not moving much air, but has no intercostal retractions or accessory muscle use. No crackles, rhonchi or stridor noted. CARDIOVASCULAR: Regular rate and rhythm with no murmurs, rubs or gallops. GASTROINTESTINAL: Bowel sounds present in all quadrants. Soft and nontender to palpation. MUSCULOSKELETAL: Full range of motion of all joints without discomfort. No significant peripheral edema. INTEGUMENTARY: No rash or other significant dermatologic conditions noted. HEMATOLOGIC: No ecchymosis or petechiae noted. NEUROLOGIC: No focal neurologic deficits noted. Medical Decision & Procedures ER Provider Diagnostic Interpretation: My interpretation of an ECG shows a normal sinus rhythm of [address] elevation or other conduction abnormalities. My interpretation of a two-view chest x-ray does not show any obvious consolidations or pneumothorax. Radiologist report is as follows: CHEST 2 VIEWS ROUTINE CLINICAL HISTORY: Respiratory distress COMPARISON STUDY: 11/27/2016 FINDINGS: The heart is normal in size. There is mild elevation right hemidiaphragm. There is no failure. There is no lobar consolidation. Increased markings at both lung bases are likely atelectatic. There is a lower thoracic compression deformity.[ IMPRESSION: 1. Mild elevation of the right hemidiaphragm 2. Bibasilar opacities, likely atelectatic Laboratory Results 02/18/17 15:20 Red Blood Count 4.61, Mean Corpuscular Volume 75.7, Mean Corpuscular Hemoglobin 22.1, Mean Corpuscular Hemoglobin Concent 29.2, Mean Platelet Volume 9.7, Neutrophils (%) (Auto) 63.2, Lymphocytes (%) (Auto) 23.2, Monocytes (%) (Auto) 8.6, Eosinophils (%) (Auto) 4.0, Basophils (%) (Auto) 0.8, Neutrophils # (Auto) 5.69, Lymphocytes # (Auto) 2.09, Monocytes # (Auto) 0.77, Eosinophils # (Auto) 0.36, Basophils # (Auto) 0.07 02/18/17 15:20 Test 02/18/17 15:06 02/18/17 15:20 Creatine Kinase MB Ratio (0-3.0) White Blood Count 9.00 K/uL (4.8-10.8) Red Blood Count 4.61 M/uL (4.2-5.4) Hemoglobin 10.2 g/dL (12.0-16.0) Hematocrit 34.9 % (37-47) Mean Corpuscular Volume 75.7 fL (80-100) Mean Corpuscular Hemoglobin 22.1 pg (25-34) Mean Corpuscular Hemoglobin Concent 29.2 g/dl (32-36) Platelet Count 222 K/uL (130-400) Mean Platelet Volume 9.7 fL (7.4-10.4) Neutrophils (%) (Auto) 63.2 % Lymphocytes (%) (Auto) 23.2 % Monocytes (%) (Auto) 8.6 % Eosinophils (%) (Auto) 4.0 % Basophils (%) (Auto) 0.8 % Neutrophils # (Auto) 5.69 K/uL (1.4-6.5) Lymphocytes # (Auto) 2.09 K/uL (1.2-3.4) Monocytes # (Auto) 0.77 K/uL (0.11-0.59) Eosinophils # (Auto) 0.36 K/uL (0-0.5) Basophils # (Auto) 0.07 K/uL (0-0.2) RDW Standard Deviation 51.0 fL (36.4-46.3) RDW Coefficient of Variation 18.4 % (11.5-14.5) Immature Granulocyte % (Auto) 0.2 % Immature Granulocyte # (Auto) 0.02 K/uL (0.00-0.02) Prothrombin Time 9.7 SECONDS (9.0-12.0) Prothromb Time International Ratio 0.9 (0.9-1.1) Activated Partial Thromboplast Time 26.9 SECONDS (21.0-31.0) Partial Thromboplastin Ratio 1.0 D-Dimer 710 ug/L FEU (0-500) Anion Gap 6.0 mmol/L (3-11) Est Creatinine Clear Calc Drug Dose 84.6 ml/min Estimated GFR () 90.7 Estimated GFR (Non- 78.3 BUN/Creatinine Ratio 13.0 (10-20) Calcium Level 8.5 mg/dl (8.5-10.1) Total Bilirubin 0.2 mg/dl (0.2-1) Aspartate Amino Transf (AST/SGOT) 9 U/L (15-37) Alanine Aminotransferase (ALT/SGPT) 19 U/L (12-78) Alkaline Phosphatase 57 U/L (45-117) Creatine Kinase MB 0.5 ng/ml (0.5-3.6) Troponin I < 0.015 ng/ml (0-0.045) Pro-B-Type Natriuretic Peptide 38 pg/ml (0-900) Total Protein 6.9 gm/dl (6.4-8.2) Albumin 3.3 gm/dl (3.4-5.0) Globulin 3.6 gm/dl (2.5-4.0) Albumin/Globulin Ratio 0.9 (0.9-2) The above labs were reviewed. Hemoglobin is 10.2. There is no leukocytosis. Electrolytes are otherwise normal. BNP and troponin are normal. D-dimer is mildly elevated. Medications Administered Medications (Trade) Dose Ordered Sig/Kaye Route Start Time Stop Time Status Last Admin Dose Admin Methylprednisolone Sodium Succinate (Solu-Medrol IV) 125 mg NOW STAT IV 02/18/17 15:06 02/18/17 15:12 DC 02/18/17 15:41 125 MG Albuterol/ Ipratropium (Duoneb) 12 ml ONE ONCE INH 02/18/17 15:15 02/18/17 15:16 DC 02/18/17 15:30 12 ML Morphine Sulfate (MoRPHine SULFATE INJ) 8 mg NOW STAT IV 02/18/17 15:06 02/18/17 15:12 DC 02/18/17 15:42 8 MG Ondansetron HCl (Zofran Inj) 4 mg NOW STAT IV 02/18/17 15:06 02/18/17 15:12 DC 02/18/17 15:42 4 MG Procedure 1. The patient was administered an hour-long DuoNeb treatment 2. IV medications: Morphine 8 mg, Zofran 4 mg and Solu-Medrol 125 mg IVP ED Course Patient history and physical exam were performed. Nurse's notes were reviewed. Vital signs were reviewed, showing that the patient is afebrile. Remaining vital signs, including BP and O2 saturation or not completed in triage. I was at the room when the patient arrived, and she was able to transfer herself from her wheelchair to bed without any significant complications. The patient does have audible expiratory wheezing. IV access was established for lab draws. She does have a PowerPort in place. The patient was placed on playground monitor. The patient was complaining of back pain, and reports that she did not take her pain medication this morning. She was administered morphine 8 mg, Zofran 4 mg and Solu-Medrol 125 mg IVP. The patient was administered an hour-long DuoNeb treatment. Pretreatment peak flow was not measured, however posttreatment peak flow was less than 100. An ECG was normal. Two-view chest x -ray did not show any evidence for failure pattern, pneumothorax or obvious consolidations. Review of labs did show an elevated d-dimer; however, review of past records shows that the patient has had chronic d-dimer elevation. The patient reported that she had no improvement with her hour-long DuoNeb treatment. When resting in bed, her pulse ox dropped to 85% on room air; O2 was administered at 4 L/m via nasal cannula, increasing her O2 saturation to the upper 90s. The patient did not appear in any acute respiratory distress while in the emergency department. The case was discussed further with Dr. Benítez, ED attending physician, who agrees with hospitalist evaluation. The case was discussed with the [facility] hospitalist group, who came to the emergency department for further reevaluation. Please see their dictation for further treatment and final disposition. Medical Decision Workup today is most suggestive of an acute asthma exacerbation. The patient does have an elevated d-dimer which is chronic in nature. The patient reports a history of IVP dye allergy, therefore CT angiography of the chest was not ordered. I do feel that the patient is at a low risk for pulmonary embolus. The patient has had prior asthma exacerbations, and reports that this feels the same. The patient is afebrile, has no leukocytosis, and has no x-ray findings to suggest pneumonia. I do not feel that IV antibiotics were warranted on my exam. ECG and troponin were normal, therefore I do not suspect myocardial infarction. Laboratory studies and physical exam findings are not suggestive of CHF. The patient is hypoxic on room air, and was administered O2 to maintain adequate oxygenation levels. [place] Drug Monitoring Program Search Results: patient reviewed within database, no issues identified Medication Reconcilliation Current Medication List: was personally reviewed by me Blood Pressure Screening Patient's blood pressure: Normal blood pressure Impression Primary Impression: Asthma exacerbation Additional Impression: Hypoxia Critical Care I have personally spent greater than 30 minutes of critical care time in the direct management of this patient. This includes bedside care, interpretation of diagnostic studies, and testing, discussion with consultants and patient, along with other required patient management activities. The patient was monitored closely given her respiratory symptoms and hypoxemia. This 30 minutes is in excess of all separately billable procedures. Departure Information Referrals Petra Kelly (PCP) Patient Instructions My [facility] Problem Qualifiers Primary Impression: Asthma exacerbation Asthma severity: severe Asthma persistence: persistent Qualified Codes: J45.51 - Severe persistent asthma with (acute) exacerbation
[2017-02-18] MEDS: PANTOprazole SOD 40 MG TAB PO SCH (22:25)
[2017-02-18] MEDS: METHYLPREDNISOLONE IV 60 MG in SYRINGE 0 ML IV SCH (22:25)
[2017-02-18] MEDS: OXYCODONE HCL IR 5 MG TAB (IMMEDIATE RELEASE) PO PRN (22:25)
[2017-02-18] MEDS: DOCUSATE SODIUM 100 MG CAP PO SCH (22:26)
[2017-02-18] MEDS: CHOLECALCIFEROL 1000 INTER.UNIT TAB PO SCH (22:27)
[2017-02-18] MEDS ORDERED: NURSING VERBAL MED ORDER ONE (22:45)
[2017-02-19] VITALS (18 sets, daily range): BP systolic 98–144; BP diastolic 59–75; PULSE 57–92; TEMP 36.7–37; O2SAT 92–98
[2017-02-19 00:01] LABS: URINE APPEARANCE CLEAR (CLEAR); URINE BILIRUBIN NEG (NEG); URINE COLOR YELLOW; URINE NITRITE NEG (NEG); URINE SPECIFIC GRAVITY 1.024 (1.000-1.030); UROBILINOGEN NEG (NEG); ZZUR CULT IF INDIC CLEAN CATCH NO
[2017-02-19 00:04] LABS: MANUAL MICROSCOPIC REQUIRED? NO; REVIEW REQ? NO
[2017-02-19] MEDS: ALBUT/IPRATROP 3MG/0.5MG NEB 3 ML VIAL INH SCH ×7 (00:25→23:13)
[2017-02-19] MEDS: HYDROCODONE/ACETAMOPHEN 5/325MG TAB PO PRN ×4 (00:39→23:34)
[2017-02-19] MEDS ORDERED: INFLUENZA ADMINISTRATION CHARGE ONE (02:45)
[2017-02-19] MEDS ORDERED: INFLUENZA VIRUS QUAD VACCINE 0.5 ML SYR IM. ONE (02:45)
[2017-02-19] MEDS: LORAZEPAM 1 MG TAB PO PRN ×3 (03:26→20:14)
[2017-02-19] MEDS: METHYLPREDNISOLONE IV 60 MG in SYRINGE 0 ML IV SCH ×3 (05:27→20:16)
--- NOTE | 2017-02-19 07:21 | DIAGNOSTIC IMAGING REPORT ---
(CHEST FOR PE) ANGIO WITH CLINICAL HISTORY: 56 years-old Female presenting with respiratory distress, hypoxia, dyspnea, clinical concern for pulmonary embolus. TECHNIQUE: Multidetector CT angiography of the chest was performed after administration of intravenous contrast. 3-D volumetric and/or maximum intensity projection (MIP) images were subsequently reconstructed for review. IV contrast: 93 mL of Optiray 320. A dose lowering technique was used consistent with the principles of ALARA (as low as reasonably achievable). COMPARISON: 07/15/2016. CT DOSE (mGy.cm): The estimated cumulative dose is 603.77 mGy.cm. FINDINGS: Cardroom Manager topogram: Unremarkable. Pulmonary vasculature: The study is adequate for assessment of the pulmonary vascular tree. Filling defect within segmental and subsegmental branches of the posterior basal segment of the right lower lobe possible filling defect within subsegmental branches of the lateral segment of the right middle lobe. Main pulmonary artery is not enlarged. No flattening of the interventricular septum. No intracardiac intracardiac filling defect. No reflux of contrast into the hepatic veins. Remaining chest: On soft tissue windows, normal thyroid and thoracic inlet. No axillary, supraclavicular, hilar, or mediastinal lymphadenopathy. Atherosclerosis of the aortic arch. Minimal coronary artery calcification. Normal heart size. No pericardial or pleural effusion. Cholecystectomy clips. On lung windows, dependent and bandlike opacities at the lung bases likely atelectasis or scarring. Mosaic attenuation could be vascular or airway in etiology. Pulmonary cyst noted in the right upper lobe. Lobular solid 5 mm nodule at the right apex (series 4 image 219). Additional more peripheral punctate nodule noted in the right apex (series 4 image 225). Bronchial wall thickening noted most prominently in the right lower lobe. On bone windows, superior endplate sclerosis and anterior vertebral body height loss of T9. Similar anterior vertebral body height loss of T11.Osteopenia. IMPRESSION: 1. Acute pulmonary emboli in the segmental and subsegmental branches of limited regions of the right middle and right lower lobes. No CT evidence of right heart strain. 2. Extensive basilar atelectasis or scarring. 3. Bronchial wall thickening in the right lower lobe. This could be secondary to lymphatic congestion or bronchitis/bronchiolitis. 4. Lobular 5 mm solid nodule at the right apex. Follow-up per Lita Society 2017 recommendations below. 5. Osteopenia with compression deformities of T9 and T11, age indeterminate. Correlate with point tenderness. Please refer to below summary of Fleischner Society 2017 recommendations for follow-up of incidental CT nodules (H Mac et al. Guidelines for management of incidental pulmonary nodules detected on CT images: From the Fleischner Society 2017. Radiology 2017; 284: 228-243.) SOLID NODULES Single nodule; size < 6 mm * Low risk patients: No routine follow-up * High risk patients: Optional CT at 12 months Single nodule; size 6-8 mm * Low risk patients: CT at 6-12 months, then consider CT at 18-24 months * High risk patients: CT at 6-12 months, then at 18-24 months Single nodule; size > 8 mm * Either low or high risk patients: Considered CT at 3 months, PET/CT, or tissue sampling Multiple nodules; size < 6 mm * Low risk patients: No routine follow up * High risk patients: Optional CT at 12 months Multiple nodules; size 6-8 mm * Low risk patients: CT at 3-6 months, then consider CT at 18-24 months * High risk patients: CT at 3-6 months, then at 18-24 months Multiple nodules; size > 8 mm * Low risk patients: CT at 3-6 months, then consider at 18-24 months * High risk patients: CT at 3-6 months, then at 18-24 months Note: These guidelines apply to incidental nodules. These guidelines do not apply to patients younger than 35 years, immunocompromised patients, or patients with cancer. * Low risk patients: Minimal or absent history of smoking and/or other known risk factors * High risk patients: History of smoking, exposure to other carcinogens, emphysema, fibrosis, upper lobe location, family history of lung cancer, etc. * If a nodule up to 8 mm is partly solid or is ground glass, further follow-up is required after 24 months to exclude possible slow growing adenocarcinoma. SUBSOLID NODULES Single ground-glass nodule * Nodule size < 6 mm: No routine follow-up * Nodule size > or = 6 mm: CT at 6-12 months to confirm persistence, then CT every 2 years until 5 years Single part-solid nodule * Nodule size < 6 mm: No routine follow-up * Nodules size > or = 6 mm: CT at 3-6 months to confirm persistence. If unchanged and solid component remains < 6 mm, annual CT should be performed for 5 years Multiple nodules * Nodule size < 6 mm: CT at 3-6 months. If stable, consider CT at 2 and 4 years. * Nodules size > or = 6 mm: CT at 3-6 months. Subsequent management based on the most suspicious nodule(s) Electronically signed by: Gregorio Licea M.D. 02/19/2017 7:20 AM Dictated Date/Time: 02/19/2017 7:11 AM
[2017-02-19] MEDS: PANTOprazole SOD 40 MG TAB PO SCH ×2 (07:42→20:14)
[2017-02-19] MEDS: FUROSEMIDE 40 MG TAB PO SCH (07:43)
[2017-02-19] MEDS: POTASSIUM CHLORIDE 10 MEQ TABCR PO SCH (07:44)
[2017-02-19] MEDS: CYANOCOBALAMIN 500 MCG TAB (VIT B-12) PO SCH (07:44)
[2017-02-19] MEDS: CHOLECALCIFEROL 1000 INTER.UNIT TAB PO SCH ×2 (07:44→20:14)
[2017-02-19] MEDS: CITALOPRAM 40 MG TAB PO SCH (07:45)
[2017-02-19 08:14] LABS: BASO % 0.1 %; BASO ABS # 0.01 K/uL (0-0.2); COMPLETE YES; HEMATOCRIT 33.3 % (37-47); IG% 0.2 %; LYMPH % 6.7 %; MEAN CELL VOLUME 75.5 fL (80-100); MEAN CORPUSCULAR HGB CONC 29.1 g/dl (32-36); MEAN PLATELET VOLUME 10.1 fL (7.4-10.4); MONO % 1.4 %; NEUT % 91.6 %; PLATELET COUNT 243 K/uL (130-400); RED BLOOD COUNT 4.41 M/uL (4.2-5.4); WHITE BLOOD COUNT 10.43 K/uL (4.8-10.8)
[2017-02-19 08:37] LABS: CALCIUM 8.7 mg/dl (8.5-10.1); CREATININE 1.1 mg/dl (0.60-1.20); MAGNESIUM 2.1 mg/dl (1.8-2.4); POTASSIUM 4.3 mmol/L (3.5-5.1)
[2017-02-19] MEDS: OXYCODONE HCL IR 5 MG TAB (IMMEDIATE RELEASE) PO PRN ×2 (09:22→18:08)
[2017-02-19 10:48] LABS: INR 0.9 (0.9-1.1)
[2017-02-19] MEDS ORDERED: HEPARIN IV BOLUS 6,000 UNIT in SYRINGE 0 ML IV ONE (11:15)
[2017-02-19] MEDS ORDERED: NURSING VERBAL MED ORDER ONE (12:00)
[2017-02-19] MEDS: HEPARIN 25,000 UNIT/500ML D5W 500 ML IV PRN ×2 (12:08→19:16)
[2017-02-19] MEDS ORDERED: LORAZEPAM 1 MG TAB PO ONE (12:15)
[2017-02-19] MEDS: POLYETHYLENE (MIRALAX) 17 GM PACK PO PRN (16:39)
--- NOTE | 2017-02-19 16:50 | ECHOCARDIOGRAM REPORT ---
*NOTICE TO RECEIVING REPUBLICAN AGENCY This information is strictly Confidential and protected under [place] law. [place] law prohibits you from making any further disclosure of this information unless further disclosure is expressly permitted by the written consent of the person to whom it pertains or is authorized by law. A general authorization for the release of medical or other information is not sufficient for this purpose. Hospital accepts no responsibility if the information is made available to any other person, INCLUDING THE PATIENT. Interpretation Summary * Name: TOÑA BORREGO Study Date: 02/19/2017 02:39 PM BP: 113/72 mmHg * Patient Location: [facility]\S\N289\S\2 HR: 83 * : 1960 (M/d/yyyy) Gender: Female Height: 65 in * Age: 56 yrs Ethnicity: CA Weight: 205 lb * Ordering Physician: Rolo Montgomery * Referring Physician: Self, Referred * Performed By: Nicole Charles RDCS * * Reason For Study: Acute PE * BSA: 2.0 m2 * -- Conclusions -- * The left ventricle is normal in size. * Left ventricular systolic function is normal. * Ejection Fraction = >70 %. * The right ventricle is normal size. * The right ventricular systolic function is normal. * There is no evidence of pulmonary hypertension. The PA systolic pressure is less than 36 mmHg. Procedure Details * A complete two-dimensional transthoracic echocardiogram was performed (2D, M-mode, Doppler and color flow Doppler). Left Ventricle * The left ventricle is normal in size. * Ejection Fraction = >70 %. * Left ventricular systolic function is normal. * The left ventricular wall motion is normal. Right Ventricle * The right ventricle is normal size. * The right ventricular systolic function is normal. Atria * The left atrial size is normal. * Right atrial size is normal. * The interatrial septum is intact with no evidence for an atrial septal defect. Mitral Valve * The mitral valve is grossly normal. * Significant mitral regurgitation is absent. Tricuspid Valve * The tricuspid valve is not well visualized, but is grossly normal. * Significant tricuspid regurgitation is absent. Pericardium/Pleural * There is no pericardial effusion. Great Vessels * There is no evidence of pulmonary hypertension. The PA systolic pressure is less than 36 mmHg. MMode 2D Measurements and Calculations IVSd 1.1 cm LVIDd 3.7 cm LVIDs 2.1 cm LVPWd 0.98 cm IVS/LVPW 1.1 FS 42.4 % EDV(Teich) 59.1 ml ESV(Teich) 15.2 ml EF(Teich) 74.2 % EDV(cubed) 51.7 ml ESV(cubed) 9.9 ml EF(cubed) 80.9 % LV mass(C)d 119.4 grams LV mass(C)dI 59.7 grams/m\S\2 SV(Teich) 43.8 ml SI(Teich) 21.9 ml/m\S\2 SV(cubed) 41.8 ml SI(cubed) 20.9 ml/m\S\2 Ao root diam 2.7 cm Ao root area 5.7 cm\S\2 ACS 1.8 cm LA dimension 2.9 cm asc Aorta Diam 2.7 cm LA/Ao 1.1 LVOT diam 2.0 cm LVOT area 3.2 cm\S\2 LVAd ap4 18.2 cm\S\2 LVLd ap4 7.1 cm EDV(MOD-sp4) 37.7 ml EDV(sp4-el) 39.7 ml LVAs ap4 8.4 cm\S\2 LVLs ap4 5.2 cm ESV(MOD-sp4) 12.7 ml ESV(sp4-el) 11.6 ml EF(MOD-sp4) 66.4 % EF(sp4-el) 70.8 % LVAd ap2 14.0 cm\S\2 LVLd ap2 6.2 cm EDV(MOD-sp2) 26.8 ml EDV(sp2-el) 26.8 ml LVAs ap2 6.4 cm\S\2 LVLs ap2 4.9 cm ESV(MOD-sp2) 8.6 ml ESV(sp2-el) 7.1 ml EF(MOD-sp2) 67.7 % EF(sp2-el) 73.4 % LVLd %diff -14.53 % EDV(MOD-bp) 33.8 ml LVLs %diff -4.97 % ESV(MOD-bp) 10.7 ml EF(MOD-bp) 68.2 % SV(MOD-sp4) 25.1 ml SI(MOD-sp4) 12.5 ml/m\S\2 SV(MOD-sp2) 18.1 ml SI(MOD-sp2) 9.1 ml/m\S\2 SV(MOD-bp) 23.0 ml SI(MOD-bp) 11.5 ml/m\S\2 SV(sp4-el) 28.1 ml SI(sp4-el) 14.1 ml/m\S\2 SV(sp2-el) 19.7 ml SI(sp2-el) 9.8 ml/m\S\2 Doppler Measurements and Calculations MV E max nabil 71.3 cm/sec MV A max nabil 62.1 cm/sec MV E/A 1.1 MV dec time 0.22 sec Ao V2 max 188.7 cm/sec Ao max PG 14.2 mmHg Ao max PG (full) 7.2 mmHg RAHUL(V,A) 2.3 cm\S\2 RAHUL(V,D) 2.3 cm\S\2 LV V1 max PG 7.0 mmHg LV V1 max 132.4 cm/sec PA V2 max 120.8 cm/sec PA max PG 5.8 mmHg PA acc slope 806.1 cm/sec\S\2 PA acc time 0.10 sec TR max nabil 113.3 cm/sec PA pr(Accel) 36.2 mmHg
--- NOTE | 2017-02-19 17:10 | Progress Note ---
Internal Med Progress Note Date of Service: Feb 19, 2017. Provider Documentation: SUBJECTIVE: sob and chest tightness is better afebrile no nausea having knee and back pain and was not moving much OBJECTIVE: Vital Signs-as noted below Exam: General-alert and awake. Not in distress ENT-normal hearing Neck-no neck masses Lungs-cta b/l mild b/l wheezing present Heart-s1 and s2 heard regular rate and rhythm no murmurs Abdomen-soft bowel sounds present non tender no distension Extremities-no erythema Neuro-alert and awake moves extremities Lab data as noted below. 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 ASTHMA EXACERBATION WITH ACUTE HYPOXIA on iv steroids and nebs continue same pulmonary consulted Acute PE in right middle and lower lobes hx of PE in the past after surgery says lately not moving much from knees and back pain lower extremity Doppler no dvt f/u echo started on iv heparin start on Coumadin CHRONIC LOW BACK PAIN hx T9 compression fracture 10/2016 and chronic pain To continue home pain meds - norco 5/325mg 1 tab po Q4 hrs prn pain, oxy IR 5mg 1 tab po ever 4 hrs prn breakthrough pain OBSTRUCTIVE SLEEP APNEA CPAP at bedtime as per home settings ANXIETY/DEPRESSION On celexa daily On -ativan 1mg po in am prn anxiety. ativan 2mg in evening prn anxiety DARK URINE UA negative study DVT PROPHYLAXIS Lovenox DISPOSITION Monitor in tele To be determined Vital Signs: Date Time Temp Pulse Resp B/P (MAP) Pulse Ox O2 Delivery O2 Flow Rate FiO2 02/19/17 15:56 85 16 98 Nasal Cannula 2.0 02/19/17 15:00 36.8 90 18 131/67 (88) 95 02/19/17 12:00 Nasal Cannula 2.0 02/19/17 12:00 36.7 83 18 113/72 (86) 94 Nasal Cannula 2.0 02/19/17 11:52 36.7 77 20 144/73 (96) 98 Nasal Cannula 2.0 02/19/17 11:11 87 16 97 Nasal Cannula 2.0 02/19/17 08:04 37.0 73 18 126/75 (92) 95 02/19/17 08:00 Nasal Cannula 2.0 02/19/17 08:00 95 Nasal Cannula 2.0 02/19/17 07:34 70 16 94 Room Air 02/19/17 04:00 36.9 80 20 117/72 (87) 95 CPAP 02/19/17 04:00 CPAP 2.0 02/19/17 03:52 87 16 95 BiPAP/CPAP 2.0 02/19/17 00:39 57 97 2.0 02/19/17 00:30 36.9 84 20 133/74 (93) 95 2.0 02/19/17 00:27 57 14 98 Nasal Cannula 2.0 02/19/17 00:00 CPAP 2.0 02/18/17 20:44 37.1 91 18 138/81 95 Nasal Cannula 2.0 02/18/17 19:00 95 21 99 02/18/17 17:49 99 24 97 02/18/17 17:19 105 16 87 Lab Results: Results Past 24 Hours Test 02/18/17 23:47 02/19/17 07:47 02/19/17 10:29 02/19/17 11:56 Range/Units Urine Color YELLOW Urine Appearance CLEAR CLEAR Urine pH 5.0 4.5-7.5 Urine Specific [place] 1.024 1.000-1.030 Urine Protein NEG NEG Urine Glucose (UA) 3+ NEG Urine Ketones 1+ NEG Urine Occult Blood 2+ NEG Urine Nitrite NEG NEG Urine Bilirubin NEG NEG Urine Urobilinogen NEG NEG Urine Leukocyte Esterase NEG NEG Urine WBC (Auto) 1-5 0-5 /hpf Urine RBC (Auto) 0-4 0-4 /hpf Urine Hyaline Casts (Auto) 1-5 0-5 /lpf Urine Epithelial Cells (Auto) 5-10 0-5 /lpf Urine Bacteria (Auto) NEG NEG White Blood Count 10.43 4.8-10.8 K/uL Red Blood Count 4.41 4.2-5.4 M/uL Hemoglobin 9.7 12.0-16.0 g/dL Hematocrit 33.3 37-47 % Mean Corpuscular Volume 75.5 80-100 fL Mean Corpuscular Hemoglobin 22.0 25-34 pg Mean Corpuscular Hemoglobin Concent 29.1 32-36 g/dl Platelet Count 243 130-400 K/uL Mean Platelet Volume 10.1 7.4-10.4 fL Neutrophils (%) (Auto) 91.6 % Lymphocytes (%) (Auto) 6.7 % Monocytes (%) (Auto) 1.4 % Eosinophils (%) (Auto) 0.0 % Basophils (%) (Auto) 0.1 % Neutrophils # (Auto) 9.55 1.4-6.5 K/uL Lymphocytes # (Auto) 0.70 1.2-3.4 K/uL Monocytes # (Auto) 0.15 0.11-0.59 K/uL Eosinophils # (Auto) 0.00 0-0.5 K/uL Basophils # (Auto) 0.01 0-0.2 K/uL RDW Standard Deviation 52.0 36.4-46.3 fL RDW Coefficient of Variation 18.7 11.5-14.5 % Immature Granulocyte % (Auto) 0.2 % Immature Granulocyte # (Auto) 0.02 0.00-0.02 K/uL Sodium Level 138 136-145 mmol/L Potassium Level 4.3 3.5-5.1 mmol/L Chloride Level 103 98-107 mmol/L Carbon Dioxide Level 27 21-32 mmol/L Anion Gap 8.0 3-11 mmol/L Blood Urea Nitrogen 11 7-18 mg/dl Creatinine 1.10 0.60-1.20 mg/dl Est Creatinine Clear Calc Drug Dose 63.7 ml/min Estimated GFR () 64.5 Estimated GFR (Non- 55.7 BUN/Creatinine Ratio 10.0 10-20 Random Glucose 160 70-99 mg/dl Calcium Level 8.7 8.5-10.1 mg/dl Magnesium Level 2.1 1.8-2.4 mg/dl Prothrombin Time 10.0 9.0-12.0 SECONDS Prothromb Time International Ratio 0.9 0.9-1.1 Activated Partial Thromboplast Time 26.6 21.0-31.0 SECONDS Partial Thromboplastin Ratio 1.0 Troponin I < 0.015 0-0.045 ng/ml Test 02/19/17 16:01 Range/Units Troponin I < 0.015 0-0.045 ng/ml
[2017-02-19] MEDS ORDERED: ALBUT/IPRATROP 3MG/0.5MG NEB 3 ML VIAL INH PRN (17:15)
--- NOTE | 2017-02-19 17:42 | Pulmonary Consultation ---
History General Date of Service: Feb 19, 2017. Stated Complaint: Asthma Exacerbation HPI The patient is a 56 year old female who presents to [facility] with complaints of Asthma Exacerbation. The patient's primary care provider is Petra Kelly. 56-year-old female well known to the pulmonary service with history of asthma, adrenal insufficiency, iron deficiency anemia, GERD CHF. She presented to the ER yesterday afternoon 02/18/2017 with complaints of increased shortness of breath associated with wheezing that started early in the day. States that her symptoms started about 2 days ago associated with some chest tightness. She started her rescue inhaler with minimal relief. Shortness of breath usually exacerbated with exertion. She had chest pressure, but also noticed that she was desaturating to mid 80's at rest. She denies any fever, chills, chest pain , orthopnea or PND or lower extremity swelling. She denies any sick contacts or recent travel. She states that her respiratory symptoms have been relatively controlled with her last exacerbation being about in November 2016. She is no longer on asthma maintenance therapy. About 10 days ago she had marked she thought was an upper respiratory infection associated with nasal congestion and cough and took DayQuil with resolution of her symptoms. She took her peak flow this morning and it was less than 100 mL. She also has history of mucous plugging in the past and has undergone bronchoscopy. She also has history of bronchial thermoplasty. Due to chronic steroid use she has occasional insufficiency, thoracic vertebral fractures as well as cataracts. She denies any recent hospitalizations or surgeries. She states that she fell at home about 8 weeks ago and fractured her left patella. She has been getting steroid injections with minimal relief. She has been less mobile since then due to leg pain. In the emergency room her initial vital signs were 37C, pulse is 69, respiratory rate of 18, blood pressure of 159/95 saturating 96% on room air. O2 sats dropped to 87% and she was placed on 4 L nasal cannula with improvement of SaO2 to about 90%. Initial physical examination was significant for expiratory wheezes in all mccain with decreased air movement. Laboratory data was significant for hemoglobin of 10.2. Chemistry was relatively within normal limits except for albumin of 2.3. Troponin was less than 0.015 and BNP was 38. D-dimer was elevated at 710. Rapid influenza PCR was negative. Chest x-ray was performed and showed mild elevation of the right hemidiaphragm as well as bibasilar opacities suggestive of atelectasis. She also noted to have lower thoracic compression deformities. Bilateral lower extremity venous Dopplers were performed and showed no evidence of DVT. She was given a one hour long DuoNeb treatment. Patient admitted for asthma exacerbation. This morning she had a CT chest which was positive for right middle and right lower lobe segmental and subsegmental pulmonary emboli. She was started on heparin drip for VTE treatment. Historian: patient Onset: yesterday Severity: moderate Complaint Status: persistent Modifying Factors: rest Review of Systems Constitutional: reports: as stated in HPI Eyes: reports: as stated in HPI ENT: reports: as stated in HPI Cardiovascular: reports: as stated in HPI Respiratory: reports: as stated in HPI Gastrointestinal: reports: as stated in HPI Genitourinary - Female: reports: as stated in HPI Musculoskeletal: reports: as stated in HPI Integumentary: reports: as stated in HPI Neurologic: reports: as stated in HPI Psychiatric: reports: as stated in HPI Endocrine: as stated in HPI Hematologic / Lymphatic: as stated in HPI Allergic / Immunologic: as stated in HPI All Other Symptoms All Other Systems: Reviewed and Negative Past Medical History Past Medical History: Pulmonary history Asthma: She had symptoms of asthma from infancy until puberty and symptomatic until first . Post she was asymptomatic until 2007. Since 2007, has had severe persistent asthma, been on multiple inhalers and chronic steroid use--with complications, include adrenal insufficiency osteoporosis with compression fractures of T9 and T11, cataracts. She has had numerous admissions in the past for asthma. She denies intubation for asthma, but has been on BIPAP for pending respiratory failure. Morbid Obestiy: has led XIAO now on CPAP Provoked pulmonary embolism Acquired immunoglobulin deficiency Pulmonary procedures: Bronchial thermoplasty 03/18/2014 (minimal complications), 04/13/2014 and 201402/12/2011 bronchial washings grew Geena albicans. Bronchial washings from 04/13/2014 showed normal jefe. 05/27/2014 bronchoscopy washing showed normal jefe. 08/25/2015 bronchial washings grew Geena albicans. 04/11/2016 bronchial washings showed normal jefe. 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 ) 4)Chronic back pain 5)Depression 6)Dyslipidemia 7)GERD 8)Adrenal insufficiency 9)Colonic diveticulitis 10)PE (Coumadin was discontinued as these were notably provoked associated with surgeries) 11)CVID 12)Microscopic hematuria 13)XIAO 14)Osteoporosis 15)Vertebral fx Past Surgical History: 1)Bronchoscopy With Bronchial Thermoplasty 2)Colostomy 3)Colostomy Revision 4)Dilation And Curettage 5)Exploratory Laparotomy 6)Femoral Hernia Repair 7)Gallbladder Surgery 8)Hand Surgery 9)Hysterectomy 10)Knee Arthroscopy 11)Neuroplasty Decompression Median Nerve At Carpal Tunnel 12)Umbilical Hernia Herniorrhaphy 13)Ventral Hernia Repair Past Surgical History: 1)Bronchoscopy With Bronchial Thermoplasty 2)Colostomy 3)Colostomy Revision 4)Dilation And Curettage 5)Exploratory Laparotomy 6)Femoral Hernia Repair 7)Gallbladder Surgery 8)Hand Surgery 9)Hysterectomy 10)Knee Arthroscopy 11)Neuroplasty Decompression Median Nerve At Carpal Tunnel 12)Umbilical Hernia Herniorrhaphy 13)Ventral Hernia Repair Family History FH: heart disease FATHER FH: sleep apnea MOTHER FHx: cancer FHx: gallbladder disease Hypertension MOTHER Kidney disease MOTHER Family history significant for breast and colon cancer, kidney disease, hypertension, acute CA, asthma. Social History Former smoker with a 1 pack of cigarettes history for 5 years and quit in 2004. She denies any alcohol or illicit drug use. She denies any occupational exposures. She currently lives with her in a trailer. Hx Tobacco Use In Past Year?: No Smoking Status: Former Smoker Drug Use: none Marital status: Housing status: lives with significant other Occupational Status: unemployed Immunizations History of Influenza Vaccine: Yes Influenza Vaccine Date: Jan 25, 2016 History of Tetanus Vaccine?: Yes Tetanus Immunization Date: Aug 16, 2007 History of Pneumococcal: Yes Pneumococcal Date: Jan 02, 2016 History of MDRO History of MDRO: No Allergies Coded Allergies: Aspirin (Verified Allergy, Intermediate, HIVES, 10/29/16) Ibuprofen (Verified Allergy, Intermediate, HIVES, 10/29/16) Levofloxacin (Verified Allergy, Intermediate, HIVES, 10/29/16) Iodinated Diagnostic Agents (Verified Allergy, Unknown, HIVES, 10/29/16) Pregabalin (Verified Adverse Reaction, Intermediate, SEVERE DEPRESSION, ) Zolpidem (Verified Adverse Reaction, Intermediate, HALLUCINATIONS, 10/29/16 ) Gabapentin (Verified Adverse Reaction, Mild, GOOFY THOUGHTS, 10/29/16) Current Medications Reported Home Medications Medications Dose Route/Sig Max Daily Dose Days Date Category Dose Instructions Roxicodone Ir (Oxycodone HCl) 5 Mg Tab 5 Mg PO Q4H PRN 02/18/17 Reported Micro-K Ext Rel (Potassium Chloride) 10 Meq Capcr 10 Meq PO Q2D 02/18/17 Reported Prednisone 10 Mg Tab 10 Mg PO DAILY 02/18/17 Reported Furosemide 40 Mg Tab 40 Mg PO Q2D 02/18/17 Reported Levalbuterol Hcl 1.25 Mg/3 Ml Neb 1.25 Mg INH Q4 PRN 11/27/16 Rx Citalopram Hydrobromide (Citalopram) 40 Mg Tab 40 Mg PO QAM 11/27/16 Reported Cyclobenzaprine HCl 5 Mg Tab 5 Mg PO HS PRN 11/27/16 Reported Ventolin Hfa (Albuterol) 200 Puffs/97776 Mcg Aers 2-4 Puffs INH Q6H PRN 08/06/16 Reported Vitamin D (Cholecalciferol) 1,000 Unit Tab 1,000 Inter.unit PO BID 06/19/16 Reported Privigen (Immune Globulin (Human) Iv) 5 Gm/50 Ml Inj 1 Dose IV MONTHLY 12/20/15 Reported Oxygen Gas 2 Liters NA HS 10/20/15 Reported USE DIRECTED WITH C PAP [place] 5MG/325MG (Acetaminophen/Hydrocodone Bitart) Tab 1-2 Tabs PO Q4-6H PRN 07/09/15 Reported Colace (Docusate Sodium) 100 Mg Cap 200 Mg PO HS 05/06/15 Reported Lorazepam 1 Mg Tab 1 Mg PO DAILY PRN 01/08/15 Reported Vitamin B-12 (Cyanocobalamin) 1,000 Mcg Tab 1,000 Mcg PO QAM 12/13/14 Reported Ativan (Lorazepam) 1 Mg Tab 2 Mg PO HS PRN 12/13/14 Reported Prilosec (Omeprazole) 20 Mg Cap 20 Mg PO BID 04/05/14 Reported Epipen 2-Deshawn (Epinephrine) 0.3 Mg Inj 0.3 Mg IM UD PRN 04/05/14 Reported Physical Physical Exam Vital Signs: Date Time Temp Pulse Resp B/P (MAP) Pulse Ox O2 Delivery O2 Flow Rate FiO2 02/19/17 08:04 37.0 73 18 126/75 (92) 95 02/19/17 07:34 70 16 94 Room Air 02/19/17 04:00 36.9 80 20 117/72 (87) 95 CPAP 02/19/17 04:00 CPAP 2.0 02/19/17 03:52 87 16 95 BiPAP/CPAP 2.0 02/19/17 00:39 57 97 2.0 02/19/17 00:30 36.9 84 20 133/74 (93) 95 2.0 02/19/17 00:27 57 14 98 Nasal Cannula 2.0 02/19/17 00:00 CPAP 2.0 02/18/17 20:44 37.1 91 18 138/81 95 Nasal Cannula 2.0 02/18/17 19:00 95 21 99 02/18/17 17:49 99 24 97 02/18/17 17:19 105 16 87 02/18/17 16:49 102 20 99 02/18/17 16:45 100 Nebulizer 7.0 02/18/17 16:19 87 19 159/95 100 02/18/17 16:18 93 19 159/95 100 Nebulizer 7.0 02/18/17 15:49 70 18 100 02/18/17 15:49 100 Mask 02/18/17 15:46 70 02/18/17 15:25 69 18 96 Room Air 02/18/17 13:52 37.0 General Appearance: No respiratory distress, Speaking in full sentences without use of muscles of respiration. Head: NORMOCEPHALIC, ATRAUMATIC Eyes: PERRLA, NO DISCHARGE, EOMI, ENT: NORMAL EAR EXAM, NORMAL NASAL EXAM, NORMAL MOUTH EXAM, NORMAL THROAT EXAM , Mallampati III Neck: NORMAL RANGE OF MOTION, NO TENDERNESS, TRACHEA MIDLINE, NO STRIDOR Respiratory/chest: clear to auscultation bilaterally, chest wall with left Port -A-Cath in place. Cardiovascular: REGULAR RATE/RHYTHM, NORMAL S1S2, NO M/G/R, NO MURMUR, NO GALLOP Abdomen: NON TENDER, NORMAL BOWEL SOUNDS, NO REBOUND, NO MASSES, NO GUARDING, NO ORGANOMEGALY, NORMAL RECTAL EXAM, NO HEMORRHOIDS Back: No paravertebral tenderness or deformity. Upper Extremities: NO EDEMA Lower Extremities: edema Edema: Bilateral LE (1+) Pulses: carotid (R) (2+), carotid (L) (2+), dorsalis pedis (R) (1+), dorsalis pedis (L) (1+) Neuro: ALERT, ORIENTED x 3, NORMAL MOTOR EXAM, NORMAL SENSATION, NORMAL SPEECH Babinski Testing: right (downgoing), left (downgoing) Psychiatric: NORMAL AFFECT, NO SUICIDAL IDEATION, Head: ATRAUMATIC Diagnostics Labs Results Past 24 Hours Test 02/18/17 15:06 02/18/17 15:20 02/18/17 23:47 02/19/17 07:47 Range/Units Creatine Kinase MB Ratio 0-3.0 White Blood Count 9.00 10.43 4.8-10.8 K/uL Red Blood Count 4.61 4.41 4.2-5.4 M/uL Hemoglobin 10.2 9.7 12.0-16.0 g/dL Hematocrit 34.9 33.3 37-47 % Mean Corpuscular Volume 75.7 75.5 80-100 fL Mean Corpuscular Hemoglobin 22.1 22.0 25-34 pg Mean Corpuscular Hemoglobin Concent 29.2 29.1 32-36 g/dl Platelet Count 222 243 130-400 K/uL Mean Platelet Volume 9.7 10.1 7.4-10.4 fL Neutrophils (%) (Auto) 63.2 91.6 % Lymphocytes (%) (Auto) 23.2 6.7 % Monocytes (%) (Auto) 8.6 1.4 % Eosinophils (%) (Auto) 4.0 0.0 % Basophils (%) (Auto) 0.8 0.1 % Neutrophils # (Auto) 5.69 9.55 1.4-6.5 K/uL Lymphocytes # (Auto) 2.09 0.70 1.2-3.4 K/uL Monocytes # (Auto) 0.77 0.15 0.11-0.59 K/uL Eosinophils # (Auto) 0.36 0.00 0-0.5 K/uL Basophils # (Auto) 0.07 0.01 0-0.2 K/uL RDW Standard Deviation 51.0 52.0 36.4-46.3 fL RDW Coefficient of Variation 18.4 18.7 11.5-14.5 % Immature Granulocyte % (Auto) 0.2 0.2 % Immature Granulocyte # (Auto) 0.02 0.02 0.00-0.02 K/uL Prothrombin Time 9.7 9.0-12.0 SECONDS Prothromb Time International Ratio 0.9 0.9-1.1 Activated Partial Thromboplast Time 26.9 21.0-31.0 SECONDS Partial Thromboplastin Ratio 1.0 D-Dimer 710 0-500 ug/L FEU Sodium Level 140 138 136-145 mmol/L Potassium Level 4.1 4.3 3.5-5.1 mmol/L Chloride Level 106 103 98-107 mmol/L Carbon Dioxide Level 29 27 21-32 mmol/L Anion Gap 6.0 8.0 3-11 mmol/L Blood Urea Nitrogen 11 11 7-18 mg/dl Creatinine 0.83 1.10 0.60-1.20 mg/dl Est Creatinine Clear Calc Drug Dose 84.6 63.7 ml/min Estimated GFR () 90.7 64.5 Estimated GFR (Non- 78.3 55.7 BUN/Creatinine Ratio 13.0 10.0 10-20 Random Glucose 103 160 70-99 mg/dl Calcium Level 8.5 8.7 8.5-10.1 mg/dl Total Bilirubin 0.2 0.2-1 mg/dl Aspartate Amino Transf (AST/SGOT) 9 15-37 U/L Alanine Aminotransferase (ALT/SGPT) 19 12-78 U/L Alkaline Phosphatase 57 45-117 U/L Creatine Kinase MB 0.5 0.5-3.6 ng/ml Troponin I < 0.015 0-0.045 ng/ml Pro-B-Type Natriuretic Peptide 38 0-900 pg/ml Total Protein 6.9 6.4-8.2 gm/dl Albumin 3.3 3.4-5.0 gm/dl Globulin 3.6 2.5-4.0 gm/dl Albumin/Globulin Ratio 0.9 0.9-2 Urine Color YELLOW Urine Appearance CLEAR CLEAR Urine pH 5.0 4.5-7.5 Urine Specific [place] 1.024 1.000-1.030 Urine Protein NEG NEG Urine Glucose (UA) 3+ NEG Urine Ketones 1+ NEG Urine Occult Blood 2+ NEG Urine Nitrite NEG NEG Urine Bilirubin NEG NEG Urine Urobilinogen NEG NEG Urine Leukocyte Esterase NEG NEG Urine WBC (Auto) 1-5 0-5 /hpf Urine RBC (Auto) 0-4 0-4 /hpf Urine Hyaline Casts (Auto) 1-5 0-5 /lpf Urine Epithelial Cells (Auto) 5-10 0-5 /lpf Urine Bacteria (Auto) NEG NEG Magnesium Level 2.1 1.8-2.4 mg/dl Test 02/19/17 10:29 Range/Units Prothrombin Time 10.0 9.0-12.0 SECONDS Prothromb Time International Ratio 0.9 0.9-1.1 Activated Partial Thromboplast Time 26.6 21.0-31.0 SECONDS Partial Thromboplastin Ratio 1.0 Diagnostic Radiology (CHEST FOR PE) ANGIO WITH CLINICAL HISTORY: 56 years-old Female presenting with respiratory distress, hypoxia, dyspnea, clinical concern for pulmonary embolus. TECHNIQUE: Multidetector CT angiography of the chest was performed after administration of intravenous contrast. 3-D volumetric and/or maximum intensity projection (MIP) images were subsequently reconstructed for review. IV contrast: 93 mL of Optiray 320. A dose lowering technique was used consistent with the principles of ALARA (as low as reasonably achievable). COMPARISON: 07/15/2016. CT DOSE (mGy.cm): The estimated cumulative dose is 603.77 mGy.cm. FINDINGS: [employer] topogram: Unremarkable. Pulmonary vasculature: The study is adequate for assessment of the pulmonary vascular tree. Filling defect within segmental and subsegmental branches of the posterior basal segment of the right lower lobe possible filling defect within subsegmental branches of the lateral segment of the right middle lobe. Main pulmonary artery is not enlarged. No flattening of the interventricular septum. No intracardiac intracardiac filling defect. No reflux of contrast into the hepatic veins. Remaining chest: On soft tissue windows, normal thyroid and thoracic inlet. No axillary, supraclavicular, hilar, or mediastinal lymphadenopathy. Atherosclerosis of the aortic arch. Minimal coronary artery calcification. Normal heart size. No pericardial or pleural effusion. Cholecystectomy clips. On lung windows, dependent and bandlike opacities at the lung bases likely atelectasis or scarring. Mosaic attenuation could be vascular or airway in etiology. Pulmonary cyst noted in the right upper lobe. Lobular solid 5 mm nodule at the right apex (series 4 image 219). Additional more peripheral punctate nodule noted in the right apex (series 4 image 225). Bronchial wall thickening noted most prominently in the right lower lobe. On bone windows, superior endplate sclerosis and anterior vertebral body height loss of T9. Similar anterior vertebral body height loss of T11.Osteopenia. IMPRESSION: 1. Acute pulmonary emboli in the segmental and subsegmental branches of limited regions of the right middle and right lower lobes. No CT evidence of right heart strain. 2. Extensive basilar atelectasis or scarring. 3. Bronchial wall thickening in the right lower lobe. This could be secondary to lymphatic congestion or bronchitis/bronchiolitis. 4. Lobular 5 mm solid nodule at the right apex. Follow-up per [employer] Society 2017 recommendations below. 5. Osteopenia with compression deformities of T9 and T11, age indeterminate. Correlate with point tenderness ULTRASOUND VENOUS DOPPLER LWR EXT BILA CLINICAL HISTORY: Leg swelling. Elevated d-dimer. COMPARISON STUDY: 06/20/2016 FINDINGS: Real-time and color flow Doppler imaging were performed. Flow was seen within the femoral, popliteal and calf veins with no intraluminal thrombus demonstrated. The saphenous vein is patent. IMPRESSION: No evidence of lower extremity DVT. CHEST 2 VIEWS ROUTINE CLINICAL HISTORY: Respiratory distress COMPARISON STUDY: 11/27/2016 FINDINGS: The heart is normal in size. There is mild elevation right hemidiaphragm. There is no failure. There is no lobar consolidation. Increased markings at both lung bases are likely atelectatic. There is a lower thoracic compression deformity.[ IMPRESSION: 1. Mild elevation of the right hemidiaphragm 2. Bibasilar opacities, likely atelectatic TTE 02/19/2017 * -- Conclusions -- * The left ventricle is normal in size. * Left ventricular systolic function is normal. * Ejection Fraction = >70 %. * The right ventricle is normal size. * The right ventricular systolic function is normal. * There is no evidence of pulmonary hypertension. The PA systolic pressure is less than 36 mmHg. Impression Assessment and Plan Severe persistent asthma Hypoxemia Pulmonary embolism Subcentimeter nodule This patient has long history of asthma. She is well known to the pulmonary service she was last admitted in November 2016 for acute exacerbation. She has been relatively stable since then. She recently had a upper respiratory infection which resolved with [id number] medication. However in the last few days has had increased dyspnea and wheezing. Imaging shows right pulmonary emboli in the right middle and right lower lobes. There is no evidence right heart strain on CT. Troponins and BNP are within normal limits. I would continue this to be an provoked VTE in the setting of immobility and LE trauma. At the time of my evaluation her lungs are clear. I do not feel that this is an exacerbation of asthma. At the current time, continue his supplemental oxygen to maintain an SaO2 of 92% . Titrate as tolerated. I will continue with corticosteroids. I do not feel that an antibiotic is indicated at this time. Continue with ipratropium and albuterol nebulizers every 4-6 hours when necessary Continue with heparin drip. She may be a candidate for NOAC with therapy for a minimum of 3 months total. Obtain daily peak flow. For XIAO, consider CPAP at night. For pulmonary nodule, recommend interval follow-up within one year. She is a former smoker and history of cancer causing her increased risk of malignancy. Patient advised to avoid known triggers and use peak flow meter for better monitoring of her respiratory symptoms to decrease her readmission rate. She should follow up with Dr. Chua and ROSI Chacon and outpatient. I appreciate the consult. Please call me if you've any further questions or concerns.
[2017-02-19 18:40] LABS: PARTIAL THROMBOPLASTIN RATIO 3.2
[2017-02-19] MEDS: DOCUSATE SODIUM 100 MG CAP PO SCH (20:14)
[2017-02-20] VITALS (11 sets, daily range): BP systolic 94–135; BP diastolic 60–78; PULSE 65–81; TEMP 36.4–36.8; O2SAT 93–98
[2017-02-20 01:25] LABS: PARTIAL THROMBOPLASTIN RATIO 1.2
[2017-02-20] MEDS ORDERED: HEPARIN IV BOLUS 6,000 UNIT in SYRINGE 0 ML IV ONE (02:45)
[2017-02-20] MEDS: HEPARIN 25,000 UNIT/500ML D5W 500 ML IV PRN ×4 (02:59→10:34)
[2017-02-20] MEDS: OXYCODONE HCL IR 5 MG TAB (IMMEDIATE RELEASE) PO PRN ×3 (03:32→20:37)
[2017-02-20] MEDS: METHYLPREDNISOLONE IV 60 MG in SYRINGE 0 ML IV SCH ×2 (06:02→14:15)
[2017-02-20 06:38] LABS: HEMATOCRIT 31.5 % (37-47); MEAN CELL VOLUME 75.2 fL (80-100); MEAN CORPUSCULAR HEMOGLOBIN 21.7 pg (25-34); MEAN CORPUSCULAR HGB CONC 28.9 g/dl (32-36); MEAN PLATELET VOLUME 11.4 fL (7.4-10.4); PLATELET COUNT 238 K/uL (130-400); RED BLOOD COUNT 4.19 M/uL (4.2-5.4)
[2017-02-20] MEDS: ALBUT/IPRATROP 3MG/0.5MG NEB 3 ML VIAL INH SCH ×3 (07:32→19:37)
[2017-02-20] MEDS: CITALOPRAM 40 MG TAB PO SCH (08:19)
[2017-02-20] MEDS: CYANOCOBALAMIN 500 MCG TAB (VIT B-12) PO SCH (08:19)
[2017-02-20] MEDS: CHOLECALCIFEROL 1000 INTER.UNIT TAB PO SCH ×2 (08:19→20:36)
[2017-02-20] MEDS: PANTOprazole SOD 40 MG TAB PO SCH ×2 (08:19→20:36)
[2017-02-20] MEDS: POLYETHYLENE (MIRALAX) 17 GM PACK PO PRN (08:23)
[2017-02-20 09:21] LABS: PARTIAL THROMBOPLASTIN RATIO 3.6
[2017-02-20] MEDS: HYDROCODONE/ACETAMOPHEN 5/325MG TAB PO PRN (09:32)
--- NOTE | 2017-02-20 09:55 | Pulmonology Progress Note ---
Pulmonary Progress Note Date of Service Feb 20, 2017. Attending Dr. Plasencia Subjective Patient seen and examined this morning. She states that she's feeling a little bit better. She still feels as if she has some mild chest pressure but this is resolving. She denies any shortness of breath or cough. She is requesting Mucinex this morning. Objective Vital signs reviewed. Gen.: Awake alert oriented 3, no acute distress. Eating breakfast. Neck: High-pitched wheezes. CVS: S1-S2, regular rate and rhythm Lungs: Clear to auscultation bilaterally, no wheezing, no rhonchi Abdomen: Obese, nontender, nondistended Extremities: Trace edema bilaterally, no cyanosis, no clubbing Labs reviewed. Imaging viewed and reviewed by me. Medications reviewed. Assessment & Plan Severe persistent asthma Hypoxemia Pulmonary embolism Subcentimeter nodule Ms. Mahajan is doing better from a respiratory standpoint today. She still has some upper airway obstruction. But does not appear to be wheezing and lower lung mccain. Continue with supplemental oxygen to maintain an SaO2 of 92%. Titrate as tolerated. Titrate steroids as tolerated. I do not feel that an antibiotic is indicated at this time. Continue with ipratropium and albuterol nebulizers every 4-6 hours when necessary Continue with heparin drip. Patient states that she would like to be transitioned to Coumadin as she has been on this in the past for DVT/PE. We discussed the options of new or anticoagulations, however she feels that because there is no antidote for most of these agents she would prefer to be monitored on Coumadin. Obtain daily peak flow.Patient advised to avoid known triggers and use peak flow meter for better monitoring of her respiratory symptoms to decrease her readmission rate. For XIAO, consider CPAP at night. For pulmonary nodule, recommend interval follow-up within one year. She is a former smoker and history of cancer causing her increased risk of malignancy. I will sign off case today. Please contact me if you've any further questions or concerns. She should follow up with Dr. Chua and ROSI Chacon and outpatient. Discussed case with Dr. Montgomery. Data Medications: Current Inpatient Medications Medications (Trade) Dose Ordered Sig/Kaye Route Start Time Stop Time Status Last Admin Dose Admin Ondansetron HCl (Zofran Inj) 4 mg Q6H PRN IV 02/18/17 19:30 03/20/17 19:29 Polyethylene (Miralax Powder Packet) 17 gm DAILY PRN PO 02/18/17 19:30 03/20/17 19:29 02/20/17 08:23 17 GM Methylprednisolone Sodium Succinate 60 mg/Syringe 0.96 ml @ 1.5 mls/min Q8 IV 02/18/17 22:00 03/20/17 21:59 02/20/17 06:02 1.5 MLS/MIN Cholecalciferol (Vitamin D Tab) 1,000 inter.unit BID PO 02/18/17 21:00 03/20/17 20:59 02/20/17 08:19 1,000 INTER.UNIT Citalopram Hydrobromide (celeXA TAB) 40 mg QAM PO 02/19/17 09:00 03/21/17 08:59 02/20/17 08:19 40 MG Cyanocobalamin (Vitamin B-12 Tab) 1,000 mcg QAM PO 02/19/17 09:00 03/21/17 08:59 02/20/17 08:19 1,000 MCG Cyclobenzaprine HCl (Flexeril Tab) 5 mg HS PRN PO 02/18/17 19:45 03/20/17 19:44 Docusate Sodium (coLACE CAP) 200 mg HS PO 02/18/17 21:00 03/20/17 20:59 02/19/17 20:14 200 MG Furosemide (Lasix Tab) 40 mg Q2D PO 02/19/17 09:00 03/21/17 08:59 02/19/17 07:43 40 MG Acetaminophen/ Hydrocodone Bitart (Juliette 5/325 Tab) Q4 PRN PO 02/18/17 19:45 03/04/17 19:44 02/20/17 09:32 2 TAB Lorazepam (Ativan Tab) 1 mg DAILY PRN PO 02/18/17 19:45 03/20/17 19:44 02/19/17 20:14 1 MG Lorazepam (Ativan Tab) 2 mg HS PRN PO 02/18/17 19:45 03/20/17 19:44 02/19/17 20:14 2 MG Oxycodone HCl (Roxicodone Immediate Rel Tab) 5 mg Q4H PRN PO 02/18/17 19:45 03/04/17 19:44 02/20/17 03:32 5 MG Potassium Chloride (Klor-Con M10) 10 meq Q2D PO 02/19/17 09:00 03/21/17 08:59 02/19/17 07:44 10 MEQ Pantoprazole Sodium (Protonix Tab) 40 mg BID PO 02/18/17 21:00 03/20/17 20:59 02/20/17 08:19 40 MG Heparin Sodium (Porcine) (Heparin 100 Unit/ml 5ml Flush) 5 ml PRN PRN IV 02/18/17 23:15 03/20/17 23:14 02/19/17 11:16 5 ML Heparin Sodium/ Dextrose 500 ml @ 29 mls/hr [id number] PRN IV 02/19/17 11:15 03/21/17 11:14 02/20/17 07:11 29 MLS/HR Albuterol/ Ipratropium (Duoneb) 3 ml Q6R INH 02/19/17 21:00 03/21/17 20:59 02/20/17 07:32 3 ML Albuterol/ Ipratropium (Duoneb) 3 ml Q2R PRN INH 02/19/17 17:15 03/21/17 17:14 Miscellaneous Information (Nursing Heparin Iv Rate Change) 1 ea ONE ONCE N/A 02/20/17 09:45 02/20/17 09:46 UNV Vital Signs: Date Time Temp Pulse Resp B/P (MAP) Pulse Ox O2 Delivery O2 Flow Rate FiO2 02/20/17 08:00 Nasal Cannula 2.0 02/20/17 07:37 75 16 94 Room Air 02/20/17 07:30 36.5 69 14 106/65 (79) 97 CPAP 2.0 02/20/17 05:16 36.8 66 16 114/68 (83) 98 CPAP 02/20/17 04:00 Nasal Cannula 2.0 02/20/17 00:04 36.7 78 16 106/66 (79) 96 CPAP 2.0 02/20/17 00:00 Nasal Cannula 2.0 02/19/17 23:14 78 16 96 BiPAP/CPAP 2.0 02/19/17 21:59 88 98 2.0 02/19/17 20:00 Nasal Cannula 2.0 02/19/17 19:38 76 16 92 Room Air 02/19/17 19:22 36.8 92 18 98/59 (72) 95 Nasal Cannula 2.0 02/19/17 16:00 95 Nasal Cannula 2.0 02/19/17 16:00 Nasal Cannula 2.0 02/19/17 15:56 85 16 98 Nasal Cannula 2.0 02/19/17 15:00 36.8 90 18 131/67 (88) 95 02/19/17 12:00 Nasal Cannula 2.0 02/19/17 12:00 36.7 83 18 113/72 (86) 94 Nasal Cannula 2.0 02/19/17 11:52 36.7 77 20 144/73 (96) 98 Nasal Cannula 2.0 02/19/17 11:11 87 16 97 Nasal Cannula 2.0 Laboratory Results: Last 24 Hours Test 02/19/17 10:29 02/19/17 11:56 02/19/17 16:01 02/19/17 18:03 Prothrombin Time 10.0 SECONDS Prothromb Time International Ratio 0.9 Activated Partial Thromboplast Time 26.6 SECONDS 83.7 SECONDS Partial Thromboplastin Ratio 1.0 3.2 Troponin I < 0.015 ng/ml < 0.015 ng/ml Test 02/20/17 00:57 02/20/17 05:59 02/20/17 08:50 Activated Partial Thromboplast Time 31.5 SECONDS 94.0 SECONDS Partial Thromboplastin Ratio 1.2 3.6 White Blood Count 21.00 K/uL Red Blood Count 4.19 M/uL Hemoglobin 9.1 g/dL Hematocrit 31.5 % Mean Corpuscular Volume 75.2 fL Mean Corpuscular Hemoglobin 21.7 pg Mean Corpuscular Hemoglobin Concent 28.9 g/dl RDW Standard Deviation 52.0 fL RDW Coefficient of Variation 18.9 % Platelet Count 238 K/uL Mean Platelet Volume 11.4 fL
[2017-02-20] MEDS: LORAZEPAM 1 MG TAB PO PRN (15:58)
[2017-02-20 16:02] LABS: PARTIAL THROMBOPLASTIN RATIO 1.9
--- NOTE | 2017-02-20 17:55 | Progress Note ---
Internal Med Progress Note Date of Service: Feb 20, 2017. Provider Documentation: SUBJECTIVE: still has some sob and chest tightness afebrile no nausea no cough resting comfortably OBJECTIVE: Vital Signs-as noted below Exam: General-alert and awake. Not in distress ENT-normal hearing Neck-no neck masses Lungs-cta b/l mild b/l wheezing present no crackles Heart-s1 and s2 heard regular rate and rhythm no murmurs Abdomen-soft bowel sounds present non tender no distension Extremities-no erythema Neuro-alert and awake moves extremities Lab data as noted below. 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 ASTHMA EXACERBATION WITH ACUTE HYPOXIA on iv steroids and nebs continue same pulmonary consulted will taper steroids Acute PE in right middle and lower lobes hx of PE in the past after surgery says lately not moving much from knees and back pain lower extremity Doppler no dvt f/u echo started on iv heparin start on Coumadin f/u inr CHRONIC LOW BACK PAIN hx T9 compression fracture 10/2016 and chronic pain To continue home pain meds - norco 5/325mg 1 tab po Q4 hrs prn pain, oxy IR 5mg 1 tab po ever 4 hrs prn breakthrough pain OBSTRUCTIVE SLEEP APNEA CPAP at bedtime as per home settings ANXIETY/DEPRESSION On celexa daily On -ativan 1mg po in am prn anxiety. ativan 2mg in evening prn anxiety stable DARK URINE UA negative study DVT PROPHYLAXIS iv heparin DISPOSITION Monitor in tele To be determined Vital Signs: Date Time Temp Pulse Resp B/P (MAP) Pulse Ox O2 Delivery O2 Flow Rate FiO2 02/20/17 16:00 Room Air 02/20/17 15:20 36.7 78 18 94/60 (71) 93 Nasal Cannula 2.0 02/20/17 14:30 81 16 95 Room Air 02/20/17 12:30 Nasal Cannula 2.0 02/20/17 11:30 36.8 71 16 135/78 (97) 96 Nasal Cannula 2.0 02/20/17 09:54 Nasal Cannula 2.0 02/20/17 08:00 Nasal Cannula 2.0 02/20/17 07:37 75 16 94 Room Air 02/20/17 07:30 36.5 69 14 106/65 (79) 97 CPAP 2.0 02/20/17 05:16 36.8 66 16 114/68 (83) 98 CPAP 02/20/17 04:00 Nasal Cannula 2.0 02/20/17 00:04 36.7 78 16 106/66 (79) 96 CPAP 2.0 02/20/17 00:00 Nasal Cannula 2.0 02/19/17 23:14 78 16 96 BiPAP/CPAP 2.0 02/19/17 21:59 88 98 2.0 02/19/17 20:00 Nasal Cannula 2.0 02/19/17 19:38 76 16 92 Room Air 02/19/17 19:22 36.8 92 18 98/59 (72) 95 Nasal Cannula 2.0 Lab Results: Results Past 24 Hours Test 02/19/17 18:03 02/20/17 00:57 02/20/17 05:59 02/20/17 08:50 Range/Units Activated Partial Thromboplast Time 83.7 31.5 94.0 21.0-31.0 SECONDS Partial Thromboplastin Ratio 3.2 1.2 3.6 White Blood Count 21.00 4.8-10.8 K/uL Red Blood Count 4.19 4.2-5.4 M/uL Hemoglobin 9.1 12.0-16.0 g/dL Hematocrit 31.5 37-47 % Mean Corpuscular Volume 75.2 80-100 fL Mean Corpuscular Hemoglobin 21.7 25-34 pg Mean Corpuscular Hemoglobin Concent 28.9 32-36 g/dl RDW Standard Deviation 52.0 36.4-46.3 fL RDW Coefficient of Variation 18.9 11.5-14.5 % Platelet Count 238 130-400 K/uL Mean Platelet Volume 11.4 7.4-10.4 fL Test 02/20/17 15:29 Range/Units Activated Partial Thromboplast Time 49.7 21.0-31.0 SECONDS Partial Thromboplastin Ratio 1.9
[2017-02-20] MEDS: DOCUSATE SODIUM 100 MG CAP PO SCH (20:36)
[2017-02-20] MEDS: ACETYLCYSTEINE 600 MG CAP PO SCH (21:26)
[2017-02-21] VITALS (10 sets, daily range): BP systolic 110–136; BP diastolic 65–83; PULSE 60–84; TEMP 36.7–37; O2SAT 93–98
[2017-02-21] MEDS: HEPARIN 25,000 UNIT/500ML D5W 500 ML IV PRN ×2 (02:29→20:12)
[2017-02-21] MEDS: HYDROCODONE/ACETAMOPHEN 5/325MG TAB PO PRN ×4 (04:45→23:54)
[2017-02-21] MEDS: ALBUT/IPRATROP 3MG/0.5MG NEB 3 ML VIAL INH SCH ×4 (04:52→18:47)
[2017-02-21 05:46] LABS: PARTIAL THROMBOPLASTIN RATIO 2.2
[2017-02-21] MEDS: POLYETHYLENE (MIRALAX) 17 GM PACK PO PRN (08:11)
[2017-02-21] MEDS: ACETYLCYSTEINE 600 MG CAP PO SCH ×2 (08:12→21:00)
[2017-02-21] MEDS: POTASSIUM CHLORIDE 10 MEQ TABCR PO SCH (08:13)
[2017-02-21] MEDS: CHOLECALCIFEROL 1000 INTER.UNIT TAB PO SCH ×2 (08:14→21:00)
[2017-02-21] MEDS: CYANOCOBALAMIN 500 MCG TAB (VIT B-12) PO SCH (08:14)
[2017-02-21] MEDS: CITALOPRAM 40 MG TAB PO SCH (08:14)
[2017-02-21] MEDS: FUROSEMIDE 40 MG TAB PO SCH (08:14)
[2017-02-21] MEDS: PANTOprazole SOD 40 MG TAB PO SCH ×2 (08:15→21:00)
[2017-02-21] MEDS ORDERED: BISACODYL 10 MG SUPP PR ONE (09:15)
[2017-02-21] MEDS ORDERED: LACTULOSE SYRUP 30 GM/45 ML UDP PO ONE (09:15)
--- NOTE | 2017-02-21 15:56 | Progress Note ---
Internal Med Progress Note Date of Service: Feb 21, 2017. Provider Documentation: SUBJECTIVE: says sob and chest tightness same as yesterday ambulated fine in room afebrile seems comfortable no nausea OBJECTIVE: Vital Signs-as noted below Exam: General-alert and awake. Not in distress ENT-normal hearing Neck-no neck masses Lungs-cta b/l mild b/l wheezing present no crackles Heart-s1 and s2 heard regular rate and rhythm no murmurs Abdomen-soft bowel sounds present non tender no distension Extremities-no erythema Neuro-alert and awake moves extremities Lab data as noted below. 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 ASTHMA EXACERBATION WITH ACUTE HYPOXIA on iv steroids and nebs continue same pulmonary consulted will taper steroids stable Acute PE in right middle and lower lobes hx of PE in the past after surgery says lately not moving much from knees and back pain lower extremity Doppler no dvt f/u echo started on iv heparin started on Coumadin f/u inr CHRONIC LOW BACK PAIN hx T9 compression fracture 10/2016 and chronic pain To continue home pain meds - norco 5/325mg 1 tab po Q4 hrs prn pain, oxy IR 5mg 1 tab po ever 4 hrs prn breakthrough pain OBSTRUCTIVE SLEEP APNEA CPAP at bedtime as per home settings ANXIETY/DEPRESSION On celexa daily On -ativan 1mg po in am prn anxiety. ativan 2mg in evening prn anxiety stable DARK URINE UA negative study DVT PROPHYLAXIS iv heparin DISPOSITION Monitor in tele To be determined Vital Signs: Date Time Temp Pulse Resp B/P (MAP) Pulse Ox O2 Delivery O2 Flow Rate FiO2 02/21/17 15:42 36.9 68 16 111/71 (84) 97 Nasal Cannula 2.0 02/21/17 14:14 84 16 98 Room Air 02/21/17 12:02 36.9 64 18 122/75 (91) 97 Nasal Cannula 2.0 02/21/17 12:00 Nasal Cannula 2.0 02/21/17 08:17 37.0 62 18 124/78 (93) 97 Room Air 02/21/17 08:00 Nasal Cannula 2.0 02/21/17 04:52 68 16 94 BiPAP/CPAP 2.0 02/21/17 04:49 36.7 60 17 124/83 (97) 93 BiPAP 2.0 02/21/17 04:00 CPAP 2.0 02/21/17 00:00 CPAP 2.0 02/20/17 23:45 36.4 65 18 110/69 (83) 94 CPAP 02/20/17 20:20 98 Nasal Cannula 2.0 02/20/17 20:04 36.7 77 18 116/63 (80) 98 Nasal Cannula 2.0 02/20/17 19:59 2.0 02/20/17 19:39 68 16 97 Room Air 02/20/17 16:00 Room Air Lab Results: Results Past 24 Hours Test 02/21/17 05:04 Range/Units Activated Partial Thromboplast Time 57.4 21.0-31.0 SECONDS Partial Thromboplastin Ratio 2.2
[2017-02-21] MEDS ORDERED: WARFARIN SOD 10 MG TAB PO ONE (16:00)
[2017-02-21] MEDS: OXYCODONE HCL IR 5 MG TAB (IMMEDIATE RELEASE) PO PRN (18:26)
[2017-02-21] MEDS: DOCUSATE SODIUM 100 MG CAP PO SCH (21:00)
[2017-02-22] VITALS (10 sets, daily range): BP systolic 104–153; BP diastolic 67–82; PULSE 57–86; TEMP 36.7–37; O2SAT 94–100
[2017-02-22 05:55] LABS: HEMATOCRIT 31.4 % (37-47); MEAN CELL VOLUME 75.5 fL (80-100); MEAN CORPUSCULAR HEMOGLOBIN 22.1 pg (25-34); MEAN CORPUSCULAR HGB CONC 29.3 g/dl (32-36); MEAN PLATELET VOLUME 10.5 fL (7.4-10.4); PLATELET COUNT 231 K/uL (130-400); RED BLOOD COUNT 4.16 M/uL (4.2-5.4); WHITE BLOOD COUNT 14.83 K/uL (4.8-10.8)
[2017-02-22 06:14] LABS: PARTIAL THROMBOPLASTIN RATIO 3.2; PROTHROMBIN TIME (PATIENT) 11.1 SECONDS (9.0-12.0)
[2017-02-22] MEDS: ALBUT/IPRATROP 3MG/0.5MG NEB 3 ML VIAL INH SCH ×2 (07:10→18:51)
[2017-02-22] MEDS: PANTOprazole SOD 40 MG TAB PO SCH ×2 (07:54→20:17)
[2017-02-22] MEDS: CITALOPRAM 40 MG TAB PO SCH (07:55)
[2017-02-22] MEDS: CYANOCOBALAMIN 500 MCG TAB (VIT B-12) PO SCH (07:55)
[2017-02-22] MEDS: CHOLECALCIFEROL 1000 INTER.UNIT TAB PO SCH ×2 (07:55→20:17)
[2017-02-22] MEDS: ACETYLCYSTEINE 600 MG CAP PO SCH ×2 (07:59→20:17)
[2017-02-22] MEDS: OXYCODONE HCL IR 5 MG TAB (IMMEDIATE RELEASE) PO PRN ×3 (08:04→18:31)
[2017-02-22] MEDS: WARFARIN SOD 5 MG TAB PO SCH (16:18)
[2017-02-22] MEDS: HEPARIN 25,000 UNIT/500ML D5W 500 ML IV PRN (16:48)
--- NOTE | 2017-02-22 16:56 | Progress Note ---
Internal Med Progress Note Date of Service: Feb 22, 2017. Provider Documentation: SUBJECTIVE: says last night felt left half of the face puffed up but gone now some sob on exertion no chest pain 'no nausea eating fine has knee pains OBJECTIVE: Vital Signs-as noted below Exam: General-alert and awake. Not in distress ENT-normal hearing Neck-no neck masses Lungs-cta b/l mild b/l wheezing present no crackles Heart-s1 and s2 heard regular rate and rhythm no murmurs Abdomen-soft bowel sounds present non tender no distension Extremities-no erythema no edema Neuro-alert and awake moves extremities Lab data as noted below. 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 ASTHMA EXACERBATION WITH ACUTE HYPOXIA on iv steroids and nebs continue same pulmonary consulted will taper steroids stable Acute PE in right middle and lower lobes hx of PE in the past after surgery says lately not moving much from knees and back pain lower extremity Doppler no dvt f/u echo started on iv heparin started on Coumadin f/u inr Stable conditions: CHRONIC LOW BACK PAIN hx T9 compression fracture 10/2016 and chronic pain To continue home pain meds - norco 5/325mg 1 tab po Q4 hrs prn pain, oxy IR 5mg 1 tab po ever 4 hrs prn breakthrough pain OBSTRUCTIVE SLEEP APNEA CPAP at bedtime as per home settings ANXIETY/DEPRESSION On celexa daily On -ativan 1mg po in am prn anxiety. ativan 2mg in evening prn anxiety stable DARK URINE UA negative study DVT PROPHYLAXIS iv heparin DISPOSITION Monitor in tele To be determined Vital Signs: Date Time Temp Pulse Resp B/P (MAP) Pulse Ox O2 Delivery O2 Flow Rate FiO2 02/22/17 15:20 37.0 73 18 122/74 (90) 98 Nasal Cannula 2.0 02/22/17 14:04 86 20 98 Room Air 02/22/17 12:00 Room Air 2.0 Nasal Cannula 02/22/17 11:43 36.8 62 18 104/67 (79) 95 Nasal Cannula 2.0 02/22/17 08:00 Room Air 2.0 Nasal Cannula 02/22/17 07:26 36.7 57 16 109/68 (82) 100 Nasal Cannula 2.0 02/22/17 07:11 84 20 98 Room Air 02/22/17 04:41 Nasal Cannula 2.0 CPAP 02/22/17 04:00 36.9 72 20 153/82 (105) 94 Room Air 02/22/17 00:06 Nasal Cannula 2.0 BiPAP 02/21/17 23:47 36.9 68 20 136/79 (98) 98 CPAP 2.0 02/21/17 23:38 67 96 2.0 02/21/17 19:56 Nasal Cannula 2.0 02/21/17 19:45 37.0 66 18 110/65 (80) 94 Nasal Cannula 2.0 02/21/17 18:48 66 16 97 Room Air Lab Results: Results Past 24 Hours Test 02/22/17 05:33 02/22/17 13:00 Range/Units White Blood Count 14.83 4.8-10.8 K/uL Red Blood Count 4.16 4.2-5.4 M/uL Hemoglobin 9.2 12.0-16.0 g/dL Hematocrit 31.4 37-47 % Mean Corpuscular Volume 75.5 80-100 fL Mean Corpuscular Hemoglobin 22.1 25-34 pg Mean Corpuscular Hemoglobin Concent 29.3 32-36 g/dl RDW Standard Deviation 52.9 36.4-46.3 fL RDW Coefficient of Variation 19.1 11.5-14.5 % Platelet Count 231 130-400 K/uL Mean Platelet Volume 10.5 7.4-10.4 fL Prothrombin Time 11.1 9.0-12.0 SECONDS Prothromb Time International Ratio 1.0 0.9-1.1 Activated Partial Thromboplast Time 82.2 51.8 21.0-31.0 SECONDS Partial Thromboplastin Ratio 3.2 2.0
[2017-02-22] MEDS: DOCUSATE SODIUM 100 MG CAP PO SCH (20:18)
[2017-02-22] MEDS: LORAZEPAM 1 MG TAB PO PRN (23:08)
[2017-02-23] VITALS (11 sets, daily range): BP systolic 107–122; BP diastolic 68–76; PULSE 57–72; TEMP 36.5–36.9; O2SAT 93–100
[2017-02-23] MEDS: ALBUT/IPRATROP 3MG/0.5MG NEB 3 ML VIAL INH SCH ×2 (06:56→18:53)
[2017-02-23 07:35] LABS: INR 1.7 (0.9-1.1); PARTIAL THROMBOPLASTIN RATIO 2.7; PROTHROMBIN TIME (PATIENT) 18.6 SECONDS (9.0-12.0)
[2017-02-23] MEDS: HEPARIN 25,000 UNIT/500ML D5W 500 ML IV PRN ×2 (08:12→15:01)
[2017-02-23] MEDS: PANTOprazole SOD 40 MG TAB PO SCH ×2 (08:13→20:31)
[2017-02-23] MEDS: CITALOPRAM 40 MG TAB PO SCH (08:13)
[2017-02-23] MEDS: CHOLECALCIFEROL 1000 INTER.UNIT TAB PO SCH ×2 (08:13→20:31)
[2017-02-23] MEDS: FUROSEMIDE 40 MG TAB PO SCH (08:15)
[2017-02-23] MEDS: POTASSIUM CHLORIDE 10 MEQ TABCR PO SCH (08:15)
[2017-02-23] MEDS: ACETYLCYSTEINE 600 MG CAP PO SCH ×2 (08:15→20:31)
[2017-02-23] MEDS: OXYCODONE HCL IR 5 MG TAB (IMMEDIATE RELEASE) PO PRN ×2 (08:17→20:37)
[2017-02-23] MEDS: CYANOCOBALAMIN 500 MCG TAB (VIT B-12) PO SCH (08:47)
[2017-02-23] MEDS: HYDROCODONE/ACETAMOPHEN 5/325MG TAB PO PRN (13:10)
[2017-02-23 14:34] LABS: PARTIAL THROMBOPLASTIN RATIO 2.3
[2017-02-23] MEDS: WARFARIN SOD 5 MG TAB PO SCH (15:53)
--- NOTE | 2017-02-23 16:20 | Progress Note ---
Internal Med Progress Note Date of Service: Feb 23, 2017. Provider Documentation: SUBJECTIVE: last night she had some chest tightness but doing ok now afebrile no nausea no sob OBJECTIVE: Vital Signs-as noted below Exam: General-alert and awake. Not in distress ENT-normal hearing Neck-no neck masses Lungs-cta b/l no wheezing present no crackles Heart-s1 and s2 heard regular rate and rhythm no murmurs Abdomen-soft bowel sounds present non tender no distension Extremities-no erythema no edema Neuro-alert and awake moves extremities Lab data as noted below. 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 ASTHMA EXACERBATION WITH ACUTE HYPOXIA on iv steroids and nebs continue same pulmonary consulted tapering steroids stable Acute PE in right middle and lower lobes hx of PE in the past after surgery says lately not moving much from knees and back pain lower extremity Doppler no dvt f/u echo started on iv heparin started on Coumadin inr 1.7 today Stable conditions: CHRONIC LOW BACK PAIN hx T9 compression fracture 10/2016 and chronic pain To continue home pain meds - norco 5/325mg 1 tab po Q4 hrs prn pain, oxy IR 5mg 1 tab po ever 4 hrs prn breakthrough pain OBSTRUCTIVE SLEEP APNEA CPAP at bedtime as per home settings ANXIETY/DEPRESSION On celexa daily On -ativan 1mg po in am prn anxiety. ativan 2mg in evening prn anxiety stable DARK URINE UA negative study DVT PROPHYLAXIS iv heparin DISPOSITION Monitor in tele ambulate in [address] possible d/c in am if inr >2.0 Vital Signs: Date Time Temp Pulse Resp B/P (MAP) Pulse Ox O2 Delivery O2 Flow Rate FiO2 02/23/17 14:53 36.8 72 18 107/68 (81) 95 Room Air 02/23/17 12:00 100 CPAP 2.0 02/23/17 11:40 36.9 70 18 114/72 (86) 93 Room Air 02/23/17 08:00 100 CPAP 2.0 02/23/17 07:39 36.5 61 18 117/73 (88) 100 CPAP 2.0 02/23/17 06:59 59 16 97 BiPAP/CPAP 2.0 02/23/17 04:17 36.6 57 20 122/76 (91) 97 CPAP 2.0 02/23/17 03:59 CPAP 02/22/17 23:49 65 97 2.0 02/22/17 23:29 CPAP 2.0 02/22/17 22:39 36.9 66 18 130/78 (95) 96 Room Air 02/22/17 19:40 Nasal Cannula 2.0 02/22/17 19:39 36.8 74 20 118/74 (89) 95 Nebulizer 2.0 02/22/17 18:52 75 16 98 Nasal Cannula 2.0 Lab Results: Results Past 24 Hours Test 02/23/17 07:02 02/23/17 14:09 Range/Units Prothrombin Time 18.6 9.0-12.0 SECONDS Prothromb Time International Ratio 1.7 0.9-1.1 Activated Partial Thromboplast Time 70.7 60.6 21.0-31.0 SECONDS Partial Thromboplastin Ratio 2.7 2.3
[2017-02-23] MEDS: DOCUSATE SODIUM 100 MG CAP PO SCH (20:31)
[2017-02-24] VITALS (8 sets, daily range): BP systolic 111–147; BP diastolic 72–84; PULSE 59–72; TEMP 36.5–36.8; O2SAT 92–97
[2017-02-24 05:53] LABS: HEMATOCRIT 30.7 % (37-47); MEAN CELL VOLUME 75.1 fL (80-100); MEAN CORPUSCULAR HEMOGLOBIN 22.2 pg (25-34); MEAN CORPUSCULAR HGB CONC 29.6 g/dl (32-36); PLATELET COUNT 233 K/uL (130-400); RED BLOOD COUNT 4.09 M/uL (4.2-5.4); WHITE BLOOD COUNT 16.01 K/uL (4.8-10.8)
[2017-02-24 06:18] LABS: INR 1.9 (0.9-1.1); PARTIAL THROMBOPLASTIN RATIO 3.1; PROTHROMBIN TIME (PATIENT) 20.7 SECONDS (9.0-12.0)
[2017-02-24] MEDS: HEPARIN 25,000 UNIT/500ML D5W 500 ML IV PRN (06:33)
[2017-02-24] MEDS: ALBUT/IPRATROP 3MG/0.5MG NEB 3 ML VIAL INH SCH (07:05)
[2017-02-24] MEDS: ACETYLCYSTEINE 600 MG CAP PO SCH (08:15)
[2017-02-24] MEDS: PANTOprazole SOD 40 MG TAB PO SCH (08:15)
[2017-02-24] MEDS: CITALOPRAM 40 MG TAB PO SCH (08:15)
[2017-02-24] MEDS: CYANOCOBALAMIN 500 MCG TAB (VIT B-12) PO SCH (08:16)
[2017-02-24] MEDS: CHOLECALCIFEROL 1000 INTER.UNIT TAB PO SCH (08:16)
[2017-02-24] MEDS: OXYCODONE HCL IR 5 MG TAB (IMMEDIATE RELEASE) PO PRN (08:20)
[2017-02-24] MEDS ORDERED: MoRPHine SULFATE 2 MG/ML CARP IV ONE (09:15)
[2017-02-24] MEDS ORDERED: ENOXAPARIN 100 MG/1ML SYR SQ SCH (10:00)
[2017-02-24] MEDS ORDERED: ENOXAPARIN 1 MG/KG SQ SCH (10:30)
[2017-02-24] MEDS ORDERED: LOVENOX TEACHING KIT SCH (11:30)
[2017-02-24] MEDS: HYDROCODONE/ACETAMOPHEN 5/325MG TAB PO PRN (11:45)
[2017-02-24 13:02] LABS: PARTIAL THROMBOPLASTIN RATIO 1.4
[2017-02-24] MEDS ORDERED: CMD5 PO (14:39)
[2017-02-24] MEDS ORDERED: OXGN (14:39)
[2017-02-24] MEDS ORDERED: PRED10TA PO (14:39)
[2017-02-24] MEDS ORDERED: ENOX30IN4 SQ (14:40)
--- NOTE | 2017-02-24 14:47 | Discharge Instructions ---
Discharge Instructions Admission Admission Date: Feb 18, 2017 at 19:28 Admission Diagnosis: Asthma Exacerbation. Discharge Care Plan - Problem: (1) Hypoxia Date of VTE Diagnosis: Feb 19, 2017 Time of VTE Diagnosis: 07:20 Care Plan - Goal(s): Decrease discomfort, Improve function Care Plan - Instructions: Activity Recommendations: no limitations Recommended Home Diet: AHA Phase I (2gmNa/LoCho) Provider Instructions: Medication Instructions: * Warfarin is a medicine prescribed to prevent blood clots * Warfarin will thin your blood and help prevent new clots * Take your medications exactly as directed * Never skip a dose. Never take a double dose. If you miss a dose, take it as soon as you remember * It is important for your doctor to monitor your prothrombin time (PT). This is a lab test * Keep your appointment for lab tests Risk of Adverse Drug Reactions and Interactions: * Warfarin increases your risk of bleeding * The food you eat and other medications you take can affect how Warfarin works in your body * Ask your doctor about daily aspirin therapy * It is very important to talk with your doctor about all of the other medicines, antibiotics, vitamins or herbal products that you are taking * All of your medication must be approved by your doctor, including new medicines, as well as medicines you have taken before you started taking Warfarin Diet: * In order for Warfarin to work properly, it is important to keep your intake of Vitamin K as consistent as possible * You should avoid any sudden change in Vitamin K intake * Report any significant changes in your diet or weight to your doctor Call your Doctor if you experience any of the following: * Swelling or Pain in your leg * Sudden, continuous pain deep in a muscle * Pain that worsens when you are active or when you stand still for a long time * Chest Pain * Sudden Shortness of Breath * Rapid or pounding heart beat * Fainting * Dizziness * Cough with blood or bloody sputum * Sweating more than normal * Bruises * heavy or uncontrolled bleeding * Blood in your urine, stool or vomit * Black or tarry stools Caring for Your Self at Home: * Avoid sitting, standing or lying down for long periods without moving your legs and feet * When traveling by car, stop to get out and move around at least once every 3 hours * On long airplane, train or bus rides, get up and move around when possible * If you can't get up, wiggle your toes and tighten your calves to keep your blood moving Follow Up: * It is important for you to keep your follow up appointments with your medical provider. Follow-up Anticoagulation Therapy: Name and Phone number of Health professional/clinic/office monitoring the anticoagulation therapy: Next Date of PT/INR Laboratory Blood Draw: VTE Core Measures Inpt VTE Proph given/why not?: Enoxaparin (Lovenox)SQ Reason no anticoag overlap I/P: Treatment provided - N/A Reason no anticoag overlap @DC: Treatment provided - N/A Follow Up Follow-Up: FOLLOWUP WITH FAMILY DOCTOR ON Feb AT 9:45AM. FOLLOWUP WITH PULMONARY IN 1-2 WEEKS COUMADIN 5MG PO DAILY UNTIL FURTHER DOSING ADJUSTMENTS PER COUMADIN CLINIC. LOVENOX 90MG SUBCUTANEOUS TWICE DAILY. COUMADIN CLINIC WILL NOTIFY WHEN TO STOP LOVENOX SHOTS. COUMADIN CLINIC NOTIFIED LAB:PT/INR ON February AND FOLLOW RESULTS WITH COUMADIN CLINIC. OXYGEN 2LTS VIA NASAL CANULA WHILE AMBULATING AND DIRECTED WITH CPAP. FOLLOWUP WITH FAMILY DOCTOR FRO REPEAT CT CHEST FOR 5MM RIGHT LUNG NODULE Meghan Romero Recommendations: Call your doctor if: * Temperature above 101 degrees * Pain not relieved by pain medicine ordered * There is increased drainage or redness from any incision * You have any unanswered questions or concerns. Your Doctors Instructions noted above were prepared by provider Rolo Montgomery.
[2017-02-24] MEDS ORDERED: AZIT250T5 PO (14:52)
--- NOTE | 2017-02-24 15:06 | Progress Note ---
Internal Med Progress Note Date of Service: Feb 24, 2017. Provider Documentation: SUBJECTIVE: resting comfortably got some chest pain today morning but that got resolved afebrile no sob wanted to stay one more day but ok for discharge OBJECTIVE: Vital Signs-as noted below Exam: General-alert and awake. Not in distress ENT-normal hearing Neck-no neck masses Lungs-cta b/l mild wheezing present no crackles Heart-s1 and s2 heard regular rate and rhythm no murmurs Abdomen-soft bowel sounds present non tender no distension Extremities-no erythema no edema Neuro-alert and awake moves extremities Lab data as noted below. 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 ASTHMA EXACERBATION WITH ACUTE HYPOXIA on iv steroids and nebs continue same pulmonary consulted tapering steroids z rosa isela f./u with pulmonary stable Acute PE in right middle and lower lobes hx of PE in the past after surgery says lately not moving much from knees and back pain lower extremity Doppler no dvt echo unremarkable on iv heparin started on Coumadin inr 1.9today discharging on Lovenox bridge and Coumadin 5mg daily Coumadin clinic notified duration of Coumadin as per PCP requiring 2lts oxygen while ambulating CHRONIC LOW BACK PAIN hx T9 compression fracture 10/2016 and chronic pain To continue home pain meds - norco 5/325mg 1 tab po Q4 hrs prn pain, oxy IR 5mg 1 tab po ever 4 hrs prn breakthrough pain OBSTRUCTIVE SLEEP APNEA CPAP at bedtime as per home settings with oxygen ANXIETY/DEPRESSION On celexa daily On -ativan 1mg po in am prn anxiety. ativan 2mg in evening prn anxiety stable DARK URINE UA negative study Discharged home Vital Signs: Date Time Temp Pulse Resp B/P (MAP) Pulse Ox O2 Delivery O2 Flow Rate FiO2 02/24/17 12:07 36.5 62 20 116/75 (89) 94 Room Air 02/24/17 12:00 96 Room Air 02/24/17 08:00 96 Room Air 02/24/17 07:08 36.5 59 18 120/79 (93) 96 CPAP 2.0 02/24/17 07:05 72 96 2.0 02/24/17 07:05 72 16 96 Room Air 02/24/17 04:12 36.7 59 18 114/72 (86) 97 CPAP 02/24/17 04:00 CPAP 02/24/17 00:05 36.7 59 18 111/78 (89) 92 CPAP 02/24/17 00:00 CPAP 02/23/17 23:37 61 95 2.0 02/23/17 20:05 Nasal Cannula 2.0 02/23/17 19:24 36.8 68 20 117/73 (88) 94 Nebulizer 2.0 02/23/17 18:55 70 16 96 Room Air 02/23/17 16:00 100 CPAP 2.0 Lab Results: Results Past 24 Hours Test 02/24/17 05:23 02/24/17 12:36 Range/Units White Blood Count 16.01 4.8-10.8 K/uL Red Blood Count 4.09 4.2-5.4 M/uL Hemoglobin 9.1 12.0-16.0 g/dL Hematocrit 30.7 37-47 % Mean Corpuscular Volume 75.1 80-100 fL Mean Corpuscular Hemoglobin 22.2 25-34 pg Mean Corpuscular Hemoglobin Concent 29.6 32-36 g/dl RDW Standard Deviation 51.9 36.4-46.3 fL RDW Coefficient of Variation 18.9 11.5-14.5 % Platelet Count 233 130-400 K/uL Mean Platelet Volume 10.0 7.4-10.4 fL Nucleated RBC Absolute Count (auto) 0.03 0-0 K/uL Nucleated Red Blood Cells % 0.2 % Prothrombin Time 20.7 9.0-12.0 SECONDS Prothromb Time International Ratio 1.9 0.9-1.1 Activated Partial Thromboplast Time 79.7 36.4 21.0-31.0 SECONDS Partial Thromboplastin Ratio 3.1 1.4
--- NOTE | 2017-02-24 17:09 | Discharge Summary ---
Discharge Summary Date of Service Feb 24, 2017. 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 (2) Anxiety Status: Chronic (3) Asthma Status: Chronic (4) Chronic anemia Status: Chronic (5) Chronic back pain Status: Chronic (6) Depression Status: Chronic (7) Deterioration of spinal disc of lower back Status: Chronic (8) Dyslipidemia Status: Chronic (9) GERD (gastroesophageal reflux disease) Status: Chronic (10) H/O adrenal insufficiency Status: Chronic (11) History of colonic diverticulitis Status: Chronic (12) History of pulmonary embolism Status: Chronic (13) Immunoglobulin deficiency Status: Chronic (14) Microscopic hematuria Permanent Comment: evaluated by Urology; no significant path per patient Status: Chronic (15) Osteoporosis Status: Chronic (16) Sleep apnea Status: Chronic (17) Vertebral fracture, closed Status: Chronic Procedures: VENOUS DOPPLER STUDY: No evidence of lower extremity DVT. CTA CHEST: 1. Acute pulmonary emboli in the segmental and subsegmental branches of limited regions of the right middle and right lower lobes. No CT evidence of right heart strain. 2. Extensive basilar atelectasis or scarring. 3. Bronchial wall thickening in the right lower lobe. This could be secondary to lymphatic congestion or bronchitis/bronchiolitis. 4. Lobular 5 mm solid nodule at the right apex. Follow-up per [employer] 2017 recommendations below. 5. Osteopenia with compression deformities of T9 and T11, age indeterminate. Correlate with point tenderness. Consultations: PULMONARY Pending Studies/Follow-Up: LAB: PT/INR IN COUPLE OF DAYS Medication Reconciliation New Medications: Azithromycin (Zithromax) 250 Mg Tab 1 PKT PO UD for 5 Days, #6 TAB Enoxaparin (Lovenox) 30 Mg/0.3 Ml Inj 90 MG SQ Q12H for 5 Days, SYR Prednisone Tab (Prednisone) 10 Mg Tab 40 MG PO UD, #30 TAB 1 Refill PREDNISONE 40MG PO DAILY X 3 DAYS THEN PREDNISONE 30MG PO DAILY X 3 DAYS THEN PREDNISONE 20MG PO DAILY X 3 DAYS THEN PREDNISONE 10MG PO DAILY HOME DOSE Warfarin Sod (Coumadin) 5 Mg Tab 5 MG PO DAILY@16, #30 TAB 1 Refill Changed Medications: Home O2 Therapy (Oxygen) Gas 2 LITERS NA HS, #1 (Changed from: USE DIRECTED WITH C PAP) 2lts while ambulating and USE DIRECTED WITH C PAP Continued Medications: Albuterol Hfa (Ventolin Hfa) 200 Puffs/62067 Mcg Aers 2-4 PUFFS INH Q6H PRN for SOB/Wheezing Cholecalciferol (Vitamin D) 1,000 Unit Tab 1000 INTER.UNIT PO BID Citalopram (Citalopram Hydrobromide) 40 Mg Tab 40 MG PO QAM Cyanocobalamin (Vitamin B-12) 1,000 Mcg Tab 1000 MCG PO QAM, TAB Cyclobenzaprine HCl (Cyclobenzaprine HCl) 5 Mg Tab 5 MG PO HS PRN for Muscle Spasm Docusate Sodium (Colace) 100 Mg Cap 200 MG PO HS, CAP Epinephrine (Epipen 2-Deshawn) 0.3 Mg Inj 0.3 MG IM UD PRN for ALLERGIC REACTION Furosemide (Furosemide) 40 Mg Tab 40 MG PO Q2D Hydrocodone/Acetaminophen 5MG/325MG ([place] 5MG/325MG) Tab 1-2 TABS PO Q4-6H PRN for Pain, TAB Immune Globulin (Human) Iv (Privigen) 5 Gm/50 Ml Inj 1 DOSE IV MONTHLY Levalbuterol Hcl (Levalbuterol Hcl) 1.25 Mg/3 Ml Neb 1.25 MG INH Q4 PRN for SOB/Wheezing, #1 Lorazepam (Ativan) 1 Mg Tab 2 MG PO HS PRN for Anxiety, TAB Lorazepam (Lorazepam) 1 Mg Tab 1 MG PO DAILY PRN for Anxiety Omeprazole (Prilosec) 20 Mg Cap 20 MG PO BID Oxycodone Ir (Roxicodone Ir) 5 Mg Tab 5 MG PO Q4H PRN for SVR, TAB Potassium Chloride (Micro-K Ext Rel) 10 Meq Capcr 10 MEQ PO Q2D, CAP Prednisone (Prednisone) 10 Mg Tab 10 MG PO DAILY Admission Information HPI (per Admitting provider): Pt is 56 y/o F with hx asthma, adrenal insufficiency secondary to chronic steroid use, iron deficiency anemia, chronic back pain, GERD, depression/ anxiety presents with c/o SOB and wheezing x 2 days. Pt with significant asthma hx with multiple ER visits and hospitalizations over the years. Is not home oxygen dependent. States increased SOB and wheezing last night and used her albuterol without relief. SOB aggravated with exertion. C/O chest tightness and sensation weights are on her chest. Reports 10 days ago she felt like she was getting nasal congestion and had coughing episode one morning with purulent sputum. She took one dose of DayQuil at that time and no further cough or congestion. Pt states doesn't know specific triggers for her asthma, as in past has had flares without known triggers. Does report carpet seems to flare asthma and couple months ago moved to place without carpet and hasn't had to use albuterol for several months since, until past 2 days. Follows with [facility] [place] [place]-pulmonology. Reports stopping all her asthma maintenance medicine in 09/2016 as she had been tried on multiple things without improvement. Just uses albuterol prn wheezing at this time.Reports hx several bronchoscopies to remove mucous plugs. Also reports hx bronchial thermoplasty. Also c/o darker urine the past couple of days. Denies dysuria, hematuria, urinary frequency. Hx chronic back pain secondary to T9 compression fracture and on chronic pain meds for that. Denies fever/chills, diaphoresis, N/V/D/C, LIN, dizziness, syncope, vision changes, neck pain, palpitations, hemoptysis, sore throat, choking, otalgia, abdominal pain, flank pain, paresthesias, weakness, extremity weakness, rashes, increased lower extremity edema, extremity pain or erythema, prolonged immobilization. Seen in ER today, BP 159/95, pulse 93-106, Resp: 24, had drop in O2 to 87% and was placed on 4L oxygen and O2 up to 98%. Pt given hour long duoneb tx Elevated D-dimer 710, normal WBC, Hgb:10.2, HCT: 34.9 (chronic and stable for pt ), normal troponin, CPK, CKMB, BNP was 38. CXR shows bibasilar opacities likely atelectasis, mild elevation R hemidiaphragm. Negative rapid influenza. EKG: NSR. Was given Solumedrol 125mg IV. Pt reports 30 years ago had "one hive" from IVP dye. States has had IVP since but has always been premedicated and has not had any hives, anaphylaxis. Hx elevated D-dimer 10/2016 (860). Hx PE in 2010 after abdominal hernia repair. Physical Exam (per Admitting): General Appearance: WD/WN, no apparent distress (pt talking in full sentences while on oxygen) Head: normocephalic, atraumatic Eyes: normal inspection, PERRL, EOMI, sclerae normal ENT: normal ENT inspection, hearing grossly normal, TMs normal, pharynx normal Neck: supple, no adenopathy, trachea midline Respiratory/Chest: chest non-tender, no respiratory distress, no accessory muscle use, + pertinent finding (decreased breath sounds throughout with mild expiratory wheezing) Cardiovascular: regular rate, rhythm, no edema, no murmur, normal peripheral pulses Abdomen/GI: normal bowel sounds, non tender, soft, + pertinent finding (+ well healed surgical scars) Back: normal inspection, + pertinent finding (limited ROM secondary to discomfort, no CVA tenderness) Extremities/Musculoskelatal: normal inspection, no calf tenderness, normal capillary refill, no pedal edema, normal range of motion Neurologic/Psych: no motor/sensory deficits, alert, normal mood/affect, oriented x 3 Skin: normal color, warm/dry, + pertinent finding (port to left upper chest) Lymphatic: no adenopathy Hospital Course Pt is 56yo F with significant hx asthma and exacerbations, GERD, iron deficiency anemia, chronic back pain, depression/anxiety, adrenal insufficiency secondary to chronic steroid use. ASTHMA EXACERBATION WITH ACUTE HYPOXIA on iv steroids and nebs continue same pulmonary consulted tapering steroids z deshawn f./u with pulmonary stable Acute PE in right middle and lower lobes hx of PE in the past after surgery says lately not moving much from knees and back pain lower extremity Doppler no dvt echo unremarkable on iv heparin started on Coumadin inr 1.9today discharging on Lovenox bridge and Coumadin 5mg daily Coumadin clinic notified duration of Coumadin as per PCP requiring 2lts oxygen while ambulating CHRONIC LOW BACK PAIN hx T9 compression fracture 10/2016 and chronic pain To continue home pain meds - norco 5/325mg 1 tab po Q4 hrs prn pain, oxy IR 5mg 1 tab po ever 4 hrs prn breakthrough pain OBSTRUCTIVE SLEEP APNEA CPAP at bedtime as per home settings with oxygen ANXIETY/DEPRESSION On celexa daily On -ativan 1mg po in am prn anxiety. ativan 2mg in evening prn anxiety stable DARK URINE UA negative study Discharged home Total time spent on discharge = 35MINUTES This includes examination of the patient, discharge planning, medication reconciliation, and communication with other providers. Discharge Instructions Discharge Instructions Admission Admission Date: Feb 18, 2017 at 19:28 Admission Diagnosis: Asthma Exacerbation. Discharge Care Plan - Problem: (1) Hypoxia Date of VTE Diagnosis: Feb 19, 2017 Time of VTE Diagnosis: 07:20 Care Plan - Goal(s): Decrease discomfort, Improve function Care Plan - Instructions: Activity Recommendations: no limitations Recommended Home Diet: AHA Phase I (2gmNa/LoCho) Provider Instructions: Medication Instructions: * Warfarin is a medicine prescribed to prevent blood clots * Warfarin will thin your blood and help prevent new clots * Take your medications exactly as directed * Never skip a dose. Never take a double dose. If you miss a dose, take it as soon as you remember * It is important for your doctor to monitor your prothrombin time (PT). This is a lab test * Keep your appointment for lab tests Risk of Adverse Drug Reactions and Interactions: * Warfarin increases your risk of bleeding * The food you eat and other medications you take can affect how Warfarin works in your body * Ask your doctor about daily aspirin therapy * It is very important to talk with your doctor about all of the other medicines, antibiotics, vitamins or herbal products that you are taking * All of your medication must be approved by your doctor, including new medicines, as well as medicines you have taken before you started taking Warfarin Diet: * In order for Warfarin to work properly, it is important to keep your intake of Vitamin K as consistent as possible * You should avoid any sudden change in Vitamin K intake * Report any significant changes in your diet or weight to your doctor Call your Doctor if you experience any of the following: * Swelling or Pain in your leg * Sudden, continuous pain deep in a muscle * Pain that worsens when you are active or when you stand still for a long time * Chest Pain * Sudden Shortness of Breath * Rapid or pounding heart beat * Fainting * Dizziness * Cough with blood or bloody sputum * Sweating more than normal * Bruises * heavy or uncontrolled bleeding * Blood in your urine, stool or vomit * Black or tarry stools Caring for Your Self at Home: * Avoid sitting, standing or lying down for long periods without moving your legs and feet * When traveling by car, stop to get out and move around at least once every 3 hours * On long airplane, train or bus rides, get up and move around when possible * If you can't get up, wiggle your toes and tighten your calves to keep your blood moving Follow Up: * It is important for you to keep your follow up appointments with your medical provider. Follow-up Anticoagulation Therapy: Name and Phone number of Health professional/clinic/office monitoring the anticoagulation therapy: Next Date of PT/INR Laboratory Blood Draw: VTE Core Measures Inpt VTE Proph given/why not?: Enoxaparin (Lovenox)SQ Reason no anticoag overlap I/P: Treatment provided - N/A Reason no anticoag overlap @DC: Treatment provided - N/A Follow Up Follow-Up: FOLLOWUP WITH FAMILY DOCTOR ON Feb AT 9:45AM. FOLLOWUP WITH PULMONARY IN 1-2 WEEKS COUMADIN 5MG PO DAILY UNTIL FURTHER DOSING ADJUSTMENTS PER COUMADIN CLINIC. LOVENOX 90MG SUBCUTANEOUS TWICE DAILY. COUMADIN CLINIC WILL NOTIFY WHEN TO STOP LOVENOX SHOTS. COUMADIN CLINIC NOTIFIED LAB:PT/INR ON February AND FOLLOW RESULTS WITH COUMADIN CLINIC. OXYGEN 2LTS VIA NASAL CANULA WHILE AMBULATING AND DIRECTED WITH CPAP. FOLLOWUP WITH FAMILY DOCTOR FRO REPEAT CT CHEST FOR 5MM RIGHT LUNG NODULE Meghan Romero Recommendations: Call your doctor if: * Temperature above 101 degrees * Pain not relieved by pain medicine ordered * There is increased drainage or redness from any incision * You have any unanswered questions or concerns.
== END 2017-02-24 16:18 | disposition home or self-care (01) | DRG 203 ==
LOC: C.EDB 13:50 → C.MED 19:28 → ENRESERV 19:46
PROVIDERS: ADMIT Internal Medicine; ATTEND Internal Medicine
DX: J45.901 Unspecified asthma with (acute) exacerbation (principal); R09.02 Hypoxemia; R91.1 Solitary pulmonary nodule; E78.5 Hyperlipidemia, unspecified; G89.29 Other chronic pain; K21.9 Gastro-esophageal reflux disease without esophagitis; F41.9 Anxiety disorder, unspecified; J45.909 Unspecified asthma, uncomplicated; M81.0 Age-related osteoporosis without current pathological fracture; G47.30 Sleep apnea, unspecified; Z87.891 Personal history of nicotine dependence; Z90.89 Acquired absence of other organs; Z90.49 Acquired absence of other specified parts of digestive tract; Z86.711 Personal history of pulmonary embolism; Z99.81 Dependence on supplemental oxygen; Z82.49 Family history of ischemic heart disease and other diseases of the circulatory system; Z80.9 Family history of malignant neoplasm, unspecified; Z84.1 Family history of disorders of kidney and ureter

== ENCOUNTER 2017-04-08 14:22 | Inpatient (IN) | payer OTHER ==
[~2017-04-08] VITALS: Ht 165.1 cm; Wt 97.0 kg
[~2017-04-08 14:22] MED LIST changes: +ATV/1 PO; +ATV1 PO; +CHOL100010 PO; +CITA40TA4 PO; +CMD5 PO; +CYAN10005 PO; +DOCU-94 PO; +EPP3/2 IM; +FLX/5 PO; +HYDR-5688 PO; +LSX40 PO; +OMEP20CA9 PO; +OXGN; +OXYC1TAB3 PO; -PRD20 PO; -ZTHM250 PO; +[UNRECOGNIZED DRUG - CODE] IV
--- NOTE | 2017-04-08 14:47 | DIAGNOSTIC IMAGING REPORT ---
SINGLE VIEW CHEST CLINICAL HISTORY: Dyspnea. FINDINGS: An AP, portable, upright chest radiograph is compared to study dated 02/18/2017 and correlated with chest CT dated 02/19/2017. The examination is degraded by portable technique and patient rotation. A left subclavian central venous infusion port is unchanged in position. The cardiomediastinal silhouette is unremarkable. There is elevation of the right hemidiaphragm with mild bibasilar atelectasis. No airspace consolidation, large pleural effusion, or Pneumothorax is seen. The skeletal structures are osteopenic. The bony thorax is grossly intact. IMPRESSION: No acute cardiopulmonary abnormality. Electronically signed by: Nathanael Rutherford M.D. 04/08/2017 2:46 PM Dictated Date/Time: 04/08/2017 2:45 PM
[2017-04-08] MEDS ORDERED: DiphenhydrAMINE HCL 50 MG/ML VIAL IV STA (14:58)
[2017-04-08] MEDS ORDERED: METHYLPREDNISOLONE 125 MG VIAL IV STA (14:58)
[2017-04-08] MEDS ORDERED: MoRPHine SULFATE 4 MG/ML 1 ML CARP\\VIAL IV STA (14:58)
[2017-04-08] MEDS ORDERED: ALBUTEROL 0.083% NEBU SOLN 3 ML VIAL INH STA ×2 (15:01→17:00)
--- NOTE | 2017-04-08 15:14 | EMERGENCY ROOM VISIT NOTE ---
History First contact with patient: 14:27 Chief Complaint: RESPIRATORY PROBLEMS Stated Complaint: ASTHMA, BACK LEFT PAIN Nursing Triage Summary: pt to the ED with worsening SOB since last night hx previous PE and feels the same today c/o right sided chest pain History of Present Illness The patient is a 56 year old female who presents to the Emergency Room with complaints of pain in her left side, mid ribcage since last night, which started suddenly. She also complains of dypsnea. She states the pain works around her ribcage, starting at the back, "stabbing' in the middle, and radiates to the front. She says it hurts to move or breathe, and that she has to catch her breath. There is no recent trauma or injury to the area. This is on a background of PMH of asthma and recent hx of PE (1 month ago); had been on warfarin for 2 weeks; last week when she went in her INR was 1.1. She has been unable to move her peak flow meter at home due to the inability to take full breaths. She also takes immunoglobulin for poor adrenal function 2/2 chronic steroid use. She takes 5/325 norco for chronic back pain, which is unchanged today. Review of Systems Constitutional: + weakness, No fever, No chills, No sweats, No weight loss, No fatigue, No problem reported ENT: No hearing loss, No unusual epistaxis, No nasal symptoms, No sore throat, No tinnitus, No dental problems, No trouble swallowing, No problem reported Respiratory: + wheezing, + shortness of breath, + dyspnea on exertion, + dyspnea at rest, No cough, No sputum, No hemoptysis, No problem reported Cardiovascular: No chest pain, No orthopnea, No PND, No edema, No claudication, No palpitations, No problem reported Abdomen: No pain, No nausea, No vomiting, No diarrhea, No constipation, No GI bleeding, No problem reported Musculoskeletal: + joint pain (chronic back pain and current left sided rib pain), No muscle pain, No swelling, No calf pain, No problem reported Genitourinary - Female: No dysuria, No urinary frequency, No urinary urgency , No urinary incontinence, No urinary retention, No hematuria Integumentary: No rash, No itch, No new/changing skin lesions, No color change, No bleeding, No problem reported Past Medical/Surgical History Medical Problems: (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 (2) Anxiety (3) Asthma (4) Asthma exacerbation (5) Chronic anemia (6) Chronic back pain (7) Depression (8) Deterioration of spinal disc of lower back (9) Dyslipidemia (10) GERD (gastroesophageal reflux disease) (11) H/O adrenal insufficiency (12) History of colonic diverticulitis (13) History of pulmonary embolism (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 (15) Microscopic hematuria (16) Osteoporosis (17) Sleep apnea (18) SOB (shortness of breath) (19) Vertebral fracture, closed Surgical Problems: (1) H/O sinus surgery (2) History of bronchoscopy (3) History of carpal tunnel surgery (4) S/P cardiac cath (5) S/P herniorrhaphy (6) Status post appendectomy (7) Status post hernia repair (8) Status post partial colectomy (9) Status post thermoplasty (10) Status post thermoplasty Family History FH: heart disease FATHER FH: sleep apnea MOTHER FHx: cancer FHx: gallbladder disease Hypertension MOTHER Kidney disease MOTHER Social History Smoking Status: Former Smoker Alcohol Use: none Drug Use: none Marital Status: Housing Status: lives with significant other Occupation Status: unemployed Current/Historical Medications Scheduled Cholecalciferol (Vitamin D), 1,000 INTER.UNIT PO BID Citalopram (Citalopram Hydrobromide), 40 MG PO QAM Cyanocobalamin (Vitamin B-12), 1,000 MCG PO QAM Docusate Sodium (Colace), 200 MG PO HS Furosemide (Furosemide), 40 MG PO Q2D Home O2 Therapy (Oxygen), 2 LITERS NA HS Immune Globulin (Human) Iv (Privigen), 1 DOSE IV MONTHLY Omeprazole (Prilosec), 20 MG PO BID Potassium Chloride (Micro-K Ext Rel), 10 MEQ PO Q2D Prednisone (Prednisone), 10 MG PO DAILY Warfarin Sod (Coumadin), 1 TAB PO UD Scheduled PRN Albuterol Hfa (Ventolin Hfa), 2 PUFFS INH Q6H PRN for SOB/Wheezing Cyclobenzaprine HCl (Cyclobenzaprine HCl), 5 MG PO HS PRN for Muscle Spasm Epinephrine (Epipen 2-Deshawn), 0.3 MG IM UD PRN for ALLERGIC REACTION Hydrocodone/Acetaminophen 5MG/325MG ([place] 5MG/325MG), 1-2 TABS PO Q6H PRN for Pain Levalbuterol Hcl (Levalbuterol Hcl), 1.25 MG INH Q4 PRN for SOB/Wheezing Lorazepam (Ativan), 2 MG PO HS PRN for Anxiety Lorazepam (Lorazepam), 1 MG PO DAILY PRN for Anxiety Physical Exam Vital Signs Date Time Temp Pulse Resp B/P (MAP) Pulse Ox O2 Delivery O2 Flow Rate FiO2 04/08/17 18:44 85 Room Air 04/08/17 17:25 83 22 119/73 93 Room Air 04/08/17 16:15 91 22 131/79 96 Room Air 04/08/17 15:21 79 16 118/80 100 Room Air 04/08/17 14:25 37.0 101 20 149/84 94 Room Air Pain Rating (0-10): 10 Physical Exam General Appearance: WD/WN, no apparent distress Head: normocephalic, atraumatic Eyes: normal inspection, EOMI ENT: normal ENT inspection, hearing grossly normal Neck: supple, no JVD, no carotid bruits, trachea midline Respiratory/Chest: no respiratory distress, no accessory muscle use, + decreased breath sounds (poor air entry) Cardiovascular: no edema, no gallop, no JVD, no murmur, normal peripheral pulses, + tachycardia Abdomen / GI: normal bowel sounds, non tender, soft, no organomegaly Back: normal inspection, normal range of motion, + pertinent finding (left sided tenderness to palpation at mid-axillary line around ribs 6-8) Extremities: no calf tenderness, no pedal edema Neurologic/Psych: 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 FINDINGS: An AP, portable, upright chest radiograph is compared to study dated 02/18/2017 and correlated with chest CT dated 02/19/2017. The examination is degraded by portable technique and patient rotation. A left subclavian central venous infusion port is unchanged in position. The cardiomediastinal silhouette is unremarkable. There is elevation of the right hemidiaphragm with mild bibasilar atelectasis. No airspace consolidation, large pleural effusion, or Pneumothorax is seen. The skeletal structures are osteopenic. The bony thorax is grossly intact. IMPRESSION: No acute cardiopulmonary abnormality. L VENOUS DOPPLER UPR EXT UNIL CLINICAL HISTORY: 56 years-old Female presenting with LUE ? clot, perivascular inflammatory change along the brachial and axillary veins on CT, new from prior. TECHNIQUE: Real-time grayscale and color and spectral Doppler ultrasound imaging of the veins of the left upper extremity was performed. Compression and augmentation were also utilized. COMPARISON: None. FINDINGS: Left: Internal jugular vein: Patent. Subclavian vein: Patent. Left subclavian port noted partially obscuring visualization of the subclavian vein. Axillary vein: Patent. Basilic vein: Patent. Brachial vein: Patent. Cephalic vein: Patent. Radial vein: Patent. Ulnar vein: Patent. Other: None. IMPRESSION: No evidence of deep venous thrombosis. (CHEST FOR PE) ANGIO WITH CLINICAL HISTORY: 56 years-old Female presenting with ^Recent PE, recent subtherapeutic INR. TECHNIQUE: Multidetector CT angiography of the chest was performed after administration of intravenous contrast. 3-D volumetric and/or maximum intensity projection (MIP) images were subsequently reconstructed for review. IV contrast: 101 mL of Optiray 320. A dose lowering technique was used consistent with the principles of ALARA (as low as reasonably achievable). COMPARISON: 02/19/2017. CT DOSE (mGy.cm): The estimated cumulative dose is 650.34 mGy.cm. FINDINGS: Benefits Coordinator topogram: Left subclavian Mediport terminates at the superior cavoatrial junction. Pulmonary vasculature: The study is adequate for assessment of the pulmonary vascular tree. The previously noted filling defects and segmental and subsegmental branches of the right lung have resolved. Main pulmonary artery is not enlarged. No flattening of the interventricular septum. No intracardiac intracardiac filling defect. No reflux of contrast into the hepatic veins. Remaining chest: On soft tissue windows, normal thyroid and thoracic inlet. No axillary, supraclavicular, hilar, or mediastinal lymphadenopathy. Mild perivascular inflammatory change along the course of the left brachial/axillary vein (series 4 image [id number]). Normal heart size. No pericardial or pleural effusion. Cholecystectomy clips noted. On lung windows, minimal dependent changes likely atelectasis. Punctate nodule at the right apex unchanged (series 4 image 239). Previously noted adjacent nodule at the right apex is no longer apparent minimal emphysematous changes evident. Mosaic attenuation could suggest small airways disease or a vascular etiology. Mild bronchial wall thickening. Airways otherwise patent. On bone windows, focal sclerotic lesion in the posterior lateral left fifth rib. This is unchanged from prior exam and may represent a bone island. Previously noted anterior vertebral body height loss of T9 and to lesser extent at T11 unchanged from prior exam. Osteopenia. IMPRESSION: 1. Interval resolution of previously noted pulmonary emboli. No new pulmonary emboli. 2. Mild perivascular inflammatory change along the course of the left brachial/axillary vein. If there is clinical concern, left upper extremity venous Doppler could be obtained to ensure patency. 3. Bronchial wall thickening and minimal changes of emphysema. 4. The previously noted right apical nodule is no longer apparent, possibly indicating an inflammatory etiology. 5. Osteopenia with unchanged compression deformities of T9 and T11. Laboratory Results 04/08/17 15:00 Red Blood Count 4.14, Mean Corpuscular Volume 75.8, Mean Corpuscular Hemoglobin 21.7, Mean Corpuscular Hemoglobin Concent 28.7, Mean Platelet Volume 10.7, Neutrophils (%) (Auto) 65.5, Lymphocytes (%) (Auto) 21.8, Monocytes (%) (Auto) 8.9, Eosinophils (%) (Auto) 2.7, Basophils (%) (Auto) 0.6, Neutrophils # (Auto) 6.44, Lymphocytes # (Auto) 2.15, Monocytes # (Auto) 0.88, Eosinophils # (Auto) 0.27, Basophils # (Auto) 0.06 04/08/17 15:00 Test 04/08/17 15:00 White Blood Count 9.85 K/uL (4.8-10.8) Red Blood Count 4.14 M/uL (4.2-5.4) Hemoglobin 9.0 g/dL (12.0-16.0) Hematocrit 31.4 % (37-47) Mean Corpuscular Volume 75.8 fL (80-100) Mean Corpuscular Hemoglobin 21.7 pg (25-34) Mean Corpuscular Hemoglobin Concent 28.7 g/dl (32-36) Platelet Count 231 K/uL (130-400) Mean Platelet Volume 10.7 fL (7.4-10.4) Neutrophils (%) (Auto) 65.5 % Lymphocytes (%) (Auto) 21.8 % Monocytes (%) (Auto) 8.9 % Eosinophils (%) (Auto) 2.7 % Basophils (%) (Auto) 0.6 % Neutrophils # (Auto) 6.44 K/uL (1.4-6.5) Lymphocytes # (Auto) 2.15 K/uL (1.2-3.4) Monocytes # (Auto) 0.88 K/uL (0.11-0.59) Eosinophils # (Auto) 0.27 K/uL (0-0.5) Basophils # (Auto) 0.06 K/uL (0-0.2) RDW Standard Deviation 52.2 fL (36.4-46.3) RDW Coefficient of Variation 18.6 % (11.5-14.5) Immature Granulocyte % (Auto) 0.5 % Immature Granulocyte # (Auto) 0.05 K/uL (0.00-0.02) Prothrombin Time 26.8 SECONDS (9.0-12.0) Prothromb Time International Ratio 2.4 (0.9-1.1) Anion Gap 3.0 mmol/L (3-11) Est Creatinine Clear Calc Drug Dose 99.1 ml/min Estimated GFR () 109.6 Estimated GFR (Non- 94.6 BUN/Creatinine Ratio 17.4 (10-20) Calcium Level 8.3 mg/dl (8.5-10.1) Troponin I < 0.015 ng/ml (0-0.045) Medications Administered Medications (Trade) Dose Ordered Sig/Kaye Route Start Time Stop Time Status Last Admin Dose Admin Methylprednisolone Sodium Succinate (Solu-Medrol IV) 125 mg NOW STAT IV 04/08/17 14:58 04/08/17 15:05 DC 04/08/17 15:17 125 MG Diphenhydramine HCl (Benadryl Inj) 50 mg NOW STAT IV 04/08/17 14:58 04/08/17 15:05 DC 04/08/17 15:17 50 MG Morphine Sulfate (MoRPHine SULFATE INJ) 4 mg NOW STAT IV 04/08/17 14:58 04/08/17 15:05 DC 04/08/17 15:17 4 MG Albuterol Sulfate (Ventolin 0.083% 2.5MG/3ML Neb) 2.5 mg NOW STAT INH 04/08/17 15:01 04/08/17 15:05 DC 04/08/17 15:17 2.5 MG Albuterol/ Ipratropium (Duoneb) 3 ml NOW STAT INH 04/08/17 17:02 04/08/17 17:03 DC 04/08/17 17:47 3 ML ECG Indication: SOB/dyspnea Rate (beats per minute): 75 Rhythm: normal sinus Findings: other (Low voltage QRS) Comparison ECG Date: 02/19/17 Change: When compared with ECG of 19-FEB-2017 12:00, Nonspecific T wave abnormality, improved in Inferior leads ED Course 1430: Obtained full h&p from patient 1440: Discussed case with Dr. Wallace; ordered ecg, trops, CT for PE with solumedrol 125 and benadryl 50, 4 mg morphine for pain. 1501: Albuterol sulfate 2.5 mg INH 1555: Reassessed patient; she feels much better with the pain meds, resting comfortably. 1700: reassessed patient; she feels this is more related to her asthma, as she has been noticing her o2 sats are decreased and she feels some chest tightness. Ordered second neb. Patient requested more pain meds, and we discussed that we would not be able to supply more at this time. Ultrasound ordered per radiology recommendation. 1751: The patient ambulated and her O2 saturations dropped to 89 (with possible breath-holding) 1754: Dr. Wallace spoke with Divya Jaen PA-C. They discussed the patient's case and drug-seeking behavior. The patient will be evaluated by the [facility] for further management. Medical Decision Differential diagnoses includes but is not limited to acute coronary syndrome, myocardial infarction, pericarditis, pulmonary embolus, aortic dissection, pneumonia, pneumothorax, musculoskeletal, shingles, esophageal. Patient is a 56-year-old female who presents to ER for the past medical history of asthma for left-sided chest pain. She notes that this has been worsening over the past 24 hours. CBC shows a persistent anemia which is chronic. No significant leukocytosis. BMP along with troponin was negative. INR was therapeutic at 2.4. CT a of the chest shows resolution of PEs. Patient was given steroids and Benadryl for premedication. She was given a small dose of IV morphine. We obtained an ultrasound of the left upper extremity which was negative as the CT questioned a clot. On exam I believe that she has muscle skeletal chest wall pain. EKG was unremarkable. She has some chest tightness which is typical for her asthma. Vitals were unremarkable. Several nebs given. Refused any additional pain medications. Patient continually asked for narcotics. I do believe that she is able to go home. Informed patient of this. She states she is uncomfortable and cannot go home. Requested to ambulated. Pulse ox drops to 85%. Discussed with nurse who ambulated her and he notes that he believe she was holding her breath. Extensively reviewed chart. Previous admission occurred same wave under Dr. Vasquez. I believe wants to be admitted which is for narcotics. Upon review of Epic there does appear to be multiple necrotic agreements. Discussed with internal medicine. Patient will be evaluated for a further workup per her request. Impression Primary Impression: Left-sided chest wall pain Departure Information Dispostion Admitted as an inpatient Condition GOOD Referrals Petra Kelly (PCP) Patient Instructions My [facility] Resident Tracking Resident Involvement: Resident Care Provided Care Provided: Adult ED
[2017-04-08 15:22] LABS: INR 2.4 (0.9-1.1); PROTHROMBIN TIME (PATIENT) 26.8 SECONDS (9.0-12.0)
[2017-04-08] MEDS ORDERED: OPTIRAY 320 IV PRN (15:30)
[2017-04-08 15:34] LABS: BASO % 0.6 %; BASO ABS # 0.06 K/uL (0-0.2); COMPLETE YES; EOS % 2.7 %; HEMATOCRIT 31.4 % (37-47); IG% 0.5 %; LYMPH % 21.8 %; LYMPH ABS # 2.15 K/uL (1.2-3.4); MEAN CELL VOLUME 75.8 fL (80-100); MEAN CORPUSCULAR HEMOGLOBIN 21.7 pg (25-34); MEAN CORPUSCULAR HGB CONC 28.7 g/dl (32-36); MEAN PLATELET VOLUME 10.7 fL (7.4-10.4); MONO % 8.9 %; NEUT % 65.5 %; PLATELET COUNT 231 K/uL (130-400); RED BLOOD COUNT 4.14 M/uL (4.2-5.4); WHITE BLOOD COUNT 9.85 K/uL (4.8-10.8)
[2017-04-08] MEDS ORDERED: WARF4TAB8 PO (15:51)
[2017-04-08 15:52] LABS: BLOOD UREA NITROGEN 12 mg/dl (7-18); BUN/CREATININE RATIO 17.4 (10-20); CALCIUM 8.3 mg/dl (8.5-10.1); CARBON DIOXIDE 32 mmol/L (21-32); CHLORIDE 104 mmol/L (98-107); CREATININE 0.71 mg/dl (0.60-1.20); GLUCOSE 102 mg/dl (70-99); POTASSIUM 3.8 mmol/L (3.5-5.1); SODIUM 139 mmol/L (136-145)
--- NOTE | 2017-04-08 16:44 | DIAGNOSTIC IMAGING REPORT ---
(CHEST FOR PE) ANGIO WITH CLINICAL HISTORY: 56 years-old Female presenting with ^Recent PE, recent subtherapeutic INR. TECHNIQUE: Multidetector CT angiography of the chest was performed after administration of intravenous contrast. 3-D volumetric and/or maximum intensity projection (MIP) images were subsequently reconstructed for review. IV contrast: 101 mL of Optiray 320. A dose lowering technique was used consistent with the principles of ALARA (as low as reasonably achievable). COMPARISON: 02/19/2017. CT DOSE (mGy.cm): The estimated cumulative dose is 650.34 mGy.cm. FINDINGS: Heart Nurse topogram: Left subclavian Mediport terminates at the superior cavoatrial junction. Pulmonary vasculature: The study is adequate for assessment of the pulmonary vascular tree. The previously noted filling defects and segmental and subsegmental branches of the right lung have resolved. Main pulmonary artery is not enlarged. No flattening of the interventricular septum. No intracardiac intracardiac filling defect. No reflux of contrast into the hepatic veins. Remaining chest: On soft tissue windows, normal thyroid and thoracic inlet. No axillary, supraclavicular, hilar, or mediastinal lymphadenopathy. Mild perivascular inflammatory change along the course of the left brachial/axillary vein (series 4 image [id number]). Normal heart size. No pericardial or pleural effusion. Cholecystectomy clips noted. On lung windows, minimal dependent changes likely atelectasis. Punctate nodule at the right apex unchanged (series 4 image 239). Previously noted adjacent nodule at the right apex is no longer apparent minimal emphysematous changes evident. Mosaic attenuation could suggest small airways disease or a vascular etiology. Mild bronchial wall thickening. Airways otherwise patent. On bone windows, focal sclerotic lesion in the posterior lateral left fifth rib. This is unchanged from prior exam and may represent a bone island. Previously noted anterior vertebral body height loss of T9 and to lesser extent at T11 unchanged from prior exam. Osteopenia. IMPRESSION: 1. Interval resolution of previously noted pulmonary emboli. No new pulmonary emboli. 2. Mild perivascular inflammatory change along the course of the left brachial/axillary vein. If there is clinical concern, left upper extremity venous Doppler could be obtained to ensure patency. 3. Bronchial wall thickening and minimal changes of emphysema. 4. The previously noted right apical nodule is no longer apparent, possibly indicating an inflammatory etiology. 5. Osteopenia with unchanged compression deformities of T9 and T11. Electronically signed by: Gregorio Licea M.D. 04/08/2017 4:42 PM Dictated Date/Time: 04/08/2017 4:31 PM
[2017-04-08] MEDS ORDERED: ALBUT/IPRATROP 3MG/0.5MG NEB 3 ML VIAL INH STA (17:02)
--- NOTE | 2017-04-08 17:57 | DIAGNOSTIC IMAGING REPORT ---
L VENOUS DOPPLER UPR EXT UNIL CLINICAL HISTORY: 56 years-old Female presenting with LUE ? clot, perivascular inflammatory change along the brachial and axillary veins on CT, new from prior. TECHNIQUE: Real-time grayscale and color and spectral Doppler ultrasound imaging of the veins of the left upper extremity was performed. Compression and augmentation were also utilized. COMPARISON: None. FINDINGS: Left: Internal jugular vein: Patent. Subclavian vein: Patent. Left subclavian port noted partially obscuring visualization of the subclavian vein. Axillary vein: Patent. Basilic vein: Patent. Brachial vein: Patent. Cephalic vein: Patent. Radial vein: Patent. Ulnar vein: Patent. Other: None. IMPRESSION: No evidence of deep venous thrombosis. Electronically signed by: Gregorio Licea M.D. 04/08/2017 5:56 PM Dictated Date/Time: 04/08/2017 5:46 PM
--- NOTE | 2017-04-08 18:10 | EMERGENCY ROOM VISIT NOTE ---
History Report prepared by Jean-Pierre: Danelle Lynn Under the Supervision of: Dr. Ed Wallace D.O. First contact with patient: 14:27 Chief Complaint: RESPIRATORY PROBLEMS Stated Complaint: ASTHMA, BACK LEFT PAIN Nursing Triage Summary: pt to the ED with worsening SOB since last night hx previous PE and feels the same today c/o right sided chest pain History of Present Illness The patient is a 56 year old female who presents to the Emergency Room with complaints of constant left-sided chest pain beginning last night. The patient states that she had a sudden onset of left sided chest pain and rib pain radiating into her back last night. She describes her pain as "stabbing" and rates it as a 10/10 in severity. Movement and deep inspiration exacerbate her pain. The patient also reports feeling like she cannot take a deep breath. She denies any shortness of breath. She has a history of asthma but states that this does not feel like her typical asthma exacerbation. The patient was diagnosed with PE on 02/18/2017. She has been taking warfarin for the past two weeks. Her INR last week was 1.1. The patient denies any recent trauma or injury. She denies nausea, vomiting, diarrhea, and urinary symptoms. Source of History: patient Onset: last night Position: chest (left) Symptom Intensity: 10/10 Quality: stabbing Timing: constant Modifying Factors (Worsening): breathing (deep inspiration), movement Associated Symptoms: + back pain, No SOB, No nausea, No vomiting, No diarrhea, No urinary symptoms Review of Systems See HPI for pertinent positives & negatives. A total of 10 systems reviewed and were otherwise negative. 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 (15) Microscopic hematuria (16) Osteoporosis (17) Sleep apnea (18) Vertebral fracture, closed Surgical Problems: (1) H/O sinus surgery (2) History of bronchoscopy (3) History of carpal tunnel surgery (4) S/P cardiac cath (5) S/P herniorrhaphy (6) Status post appendectomy (7) Status post hernia repair (8) Status post partial colectomy (9) Status post thermoplasty (10) Status post thermoplasty Family History FH: heart disease FATHER FH: sleep apnea MOTHER FHx: cancer FHx: gallbladder disease Hypertension MOTHER Kidney disease MOTHER Social History Smoking Status: Former Smoker Alcohol Use: none Drug Use: none Marital Status: Housing Status: lives with significant other Occupation Status: unemployed Current/Historical Medications Scheduled Cholecalciferol (Vitamin D), 1,000 INTER.UNIT PO BID Citalopram (Citalopram Hydrobromide), 40 MG PO QAM Cyanocobalamin (Vitamin B-12), 1,000 MCG PO QAM Docusate Sodium (Colace), 200 MG PO HS Furosemide (Furosemide), 40 MG PO Q2D Home O2 Therapy (Oxygen), 2 LITERS NA HS Immune Globulin (Human) Iv (Privigen), 1 DOSE IV MONTHLY Omeprazole (Prilosec), 20 MG PO BID Potassium Chloride (Micro-K Ext Rel), 10 MEQ PO Q2D Prednisone (Prednisone), 10 MG PO DAILY Warfarin Sod (Jantoven), 4 MG PO QPM Scheduled PRN Albuterol Hfa (Ventolin Hfa), 2 PUFFS INH Q6H PRN for SOB/Wheezing Cyclobenzaprine HCl (Cyclobenzaprine HCl), 5 MG PO HS PRN for Muscle Spasm Epinephrine (Epipen 2-Deshawn), 0.3 MG IM UD PRN for ALLERGIC REACTION Hydrocodone/Acetaminophen 5MG/325MG (Freedom 5MG/325MG), 1-2 TABS PO Q4-6H PRN for Pain Levalbuterol Hcl (Levalbuterol Hcl), 1.25 MG INH Q4 PRN for SOB/Wheezing Lorazepam (Ativan), 2 MG PO HS PRN for Anxiety Lorazepam (Lorazepam), 1 MG PO DAILY PRN for Anxiety Allergies Coded Allergies: Aspirin (Verified Allergy, Intermediate, HIVES, 10/29/16) Ibuprofen (Verified Allergy, Intermediate, HIVES, 10/29/16) Levofloxacin (Verified Allergy, Intermediate, HIVES, 10/29/16) Iodinated Diagnostic Agents (Verified Allergy, Unknown, HIVES, 10/29/16) Pregabalin (Verified Adverse Reaction, Intermediate, SEVERE DEPRESSION, ) Zolpidem (Verified Adverse Reaction, Intermediate, HALLUCINATIONS, 10/29/16 ) Gabapentin (Verified Adverse Reaction, Mild, GOOFY THOUGHTS, 10/29/16) Physical Exam Vital Signs Date Time Temp Pulse Resp B/P (MAP) Pulse Ox O2 Delivery O2 Flow Rate FiO2 04/08/17 17:25 83 22 119/73 93 Room Air 04/08/17 16:15 91 22 131/79 96 Room Air 04/08/17 15:21 79 16 118/80 100 Room Air 04/08/17 14:25 37.0 101 20 149/84 94 Room Air Physical Exam GENERAL: Sitting up in bed, alert, well appearing, well nourished, talking in full sentences, minimal distress, non-toxic EYE EXAM: normal conjunctiva. OROPHARYNX: no exudate, no erythema, lips, buccal mucosa, and tongue normal and mucous membranes are moist NECK: supple, no nuchal rigidity, no adenopathy, non-tender LUNGS: Diffuse wheezing bilaterally. Normal chest wall mechanics HEART: no murmurs, S1 normal and S2 normal ABDOMEN: abdomen soft, non-tender, normo-active bowel sounds, no masses, no rebound or guarding. BACK: Back is symmetrical on inspection and there is no deformity. Acute reproducible tenderness tracking from the left upper/mid thoracic perispinal region through axilla to anterior chest. SKIN: no rashes and no bruising UPPER EXTREMITIES: upper extremities are grossly normal. LOWER EXTREMITIES: No pitting edema. Calves equal bilaterally. NEURO EXAM: Normal sensorium, cranial nerves II-XII grossly intact, normal speech, no gross weakness of arms, no gross weakness of legs. Medical Decision & Procedures ER Provider Diagnostic Interpretation: Radiology results as stated below per my review and the radiologist's interpretation: SINGLE VIEW CHEST CLINICAL HISTORY: Dyspnea. FINDINGS: An AP, portable, upright chest radiograph is compared to study dated 02/18/2017 and correlated with chest CT dated 02/19/2017. The examination is degraded by portable technique and patient rotation. A left subclavian central venous infusion port is unchanged in position. The cardiomediastinal silhouette is unremarkable. There is elevation of the right hemidiaphragm with mild bibasilar atelectasis. No airspace consolidation, large pleural effusion, or Pneumothorax is seen. The skeletal structures are osteopenic. The bony thorax is grossly intact. IMPRESSION: No acute cardiopulmonary abnormality. Electronically signed by: Nathanael Rutherford M.D. 04/08/2017 2:46 PM Dictated Date/Time: 04/08/2017 2:45 PM (CHEST FOR PE) ANGIO WITH CLINICAL HISTORY: 56 years-old Female presenting with ^Recent PE, recent subtherapeutic INR. TECHNIQUE: Multidetector CT angiography of the chest was performed after administration of intravenous contrast. 3-D volumetric and/or maximum intensity projection (MIP) images were subsequently reconstructed for review. IV contrast: 101 mL of Optiray 320. A dose lowering technique was used consistent with the principles of ALARA (as low as reasonably achievable). COMPARISON: 02/19/2017. CT DOSE (mGy.cm): The estimated cumulative dose is 650.34 mGy.cm. FINDINGS: Agile Scrum Master topogram: Left subclavian Mediport terminates at the superior cavoatrial junction. Pulmonary vasculature: The study is adequate for assessment of the pulmonary vascular tree. The previously noted filling defects and segmental and subsegmental branches of the right lung have resolved. Main pulmonary artery is not enlarged. No flattening of the interventricular septum. No intracardiac intracardiac filling defect. No reflux of contrast into the hepatic veins. Remaining chest: On soft tissue windows, normal thyroid and thoracic inlet. No axillary, supraclavicular, hilar, or mediastinal lymphadenopathy. Mild perivascular inflammatory change along the course of the left brachial/axillary vein (series 4 image [id number]). Normal heart size. No pericardial or pleural effusion. Cholecystectomy clips noted. On lung windows, minimal dependent changes likely atelectasis. Punctate nodule at the right apex unchanged (series 4 image 239). Previously noted adjacent nodule at the right apex is no longer apparent minimal emphysematous changes evident. Mosaic attenuation could suggest small airways disease or a vascular etiology. Mild bronchial wall thickening. Airways otherwise patent. On bone windows, focal sclerotic lesion in the posterior lateral left fifth rib. This is unchanged from prior exam and may represent a bone island. Previously noted anterior vertebral body height loss of T9 and to lesser extent at T11 unchanged from prior exam. Osteopenia. IMPRESSION: 1. Interval resolution of previously noted pulmonary emboli. No new pulmonary emboli. 2. Mild perivascular inflammatory change along the course of the left brachial/axillary vein. If there is clinical concern, left upper extremity venous Doppler could be obtained to ensure patency. 3. Bronchial wall thickening and minimal changes of emphysema. 4. The previously noted right apical nodule is no longer apparent, possibly indicating an inflammatory etiology. 5. Osteopenia with unchanged compression deformities of T9 and T11. Electronically signed by: Gregorio Licea M.D. 04/08/2017 4:42 PM Dictated Date/Time: 04/08/2017 4:31 PM L VENOUS DOPPLER UPR EXT UNIL CLINICAL HISTORY: 56 years-old Female presenting with LUE ? clot, perivascular inflammatory change along the brachial and axillary veins on CT, new from prior. TECHNIQUE: Real-time grayscale and color and spectral Doppler ultrasound imaging of the veins of the left upper extremity was performed. Compression and augmentation were also utilized. COMPARISON: None. FINDINGS: Left: Internal jugular vein: Patent. Subclavian vein: Patent. Left subclavian port noted partially obscuring visualization of the subclavian vein. Axillary vein: Patent. Basilic vein: Patent. Brachial vein: Patent. Cephalic vein: Patent. Radial vein: Patent. Ulnar vein: Patent. Other: None. IMPRESSION: No evidence of deep venous thrombosis. Electronically signed by: Gregorio Licea M.D. 04/08/2017 5:56 PM Dictated Date/Time: 04/08/2017 5:46 PM Laboratory Results 04/08/17 15:00 Red Blood Count 4.14, Mean Corpuscular Volume 75.8, Mean Corpuscular Hemoglobin 21.7, Mean Corpuscular Hemoglobin Concent 28.7, Mean Platelet Volume 10.7, Neutrophils (%) (Auto) 65.5, Lymphocytes (%) (Auto) 21.8, Monocytes (%) (Auto) 8.9, Eosinophils (%) (Auto) 2.7, Basophils (%) (Auto) 0.6, Neutrophils # (Auto) 6.44, Lymphocytes # (Auto) 2.15, Monocytes # (Auto) 0.88, Eosinophils # (Auto) 0.27, Basophils # (Auto) 0.06 04/08/17 15:00 Test 04/08/17 15:00 White Blood Count 9.85 K/uL (4.8-10.8) Red Blood Count 4.14 M/uL (4.2-5.4) Hemoglobin 9.0 g/dL (12.0-16.0) Hematocrit 31.4 % (37-47) Mean Corpuscular Volume 75.8 fL (80-100) Mean Corpuscular Hemoglobin 21.7 pg (25-34) Mean Corpuscular Hemoglobin Concent 28.7 g/dl (32-36) Platelet Count 231 K/uL (130-400) Mean Platelet Volume 10.7 fL (7.4-10.4) Neutrophils (%) (Auto) 65.5 % Lymphocytes (%) (Auto) 21.8 % Monocytes (%) (Auto) 8.9 % Eosinophils (%) (Auto) 2.7 % Basophils (%) (Auto) 0.6 % Neutrophils # (Auto) 6.44 K/uL (1.4-6.5) Lymphocytes # (Auto) 2.15 K/uL (1.2-3.4) Monocytes # (Auto) 0.88 K/uL (0.11-0.59) Eosinophils # (Auto) 0.27 K/uL (0-0.5) Basophils # (Auto) 0.06 K/uL (0-0.2) RDW Standard Deviation 52.2 fL (36.4-46.3) RDW Coefficient of Variation 18.6 % (11.5-14.5) Immature Granulocyte % (Auto) 0.5 % Immature Granulocyte # (Auto) 0.05 K/uL (0.00-0.02) Prothrombin Time 26.8 SECONDS (9.0-12.0) Prothromb Time International Ratio 2.4 (0.9-1.1) Anion Gap 3.0 mmol/L (3-11) Est Creatinine Clear Calc Drug Dose 99.1 ml/min Estimated GFR () 109.6 Estimated GFR (Non- 94.6 BUN/Creatinine Ratio 17.4 (10-20) Calcium Level 8.3 mg/dl (8.5-10.1) Troponin I < 0.015 ng/ml (0-0.045) Laboratory results per my review. Medications Administered Medications (Trade) Dose Ordered Sig/Kaye Route Start Time Stop Time Status Last Admin Dose Admin Methylprednisolone Sodium Succinate (Solu-Medrol IV) 125 mg NOW STAT IV 04/08/17 14:58 04/08/17 15:05 DC 04/08/17 15:17 125 MG Diphenhydramine HCl (Benadryl Inj) 50 mg NOW STAT IV 04/08/17 14:58 04/08/17 15:05 DC 04/08/17 15:17 50 MG Morphine Sulfate (MoRPHine SULFATE INJ) 4 mg NOW STAT IV 04/08/17 14:58 04/08/17 15:05 DC 04/08/17 15:17 4 MG Albuterol Sulfate (Ventolin 0.083% 2.5MG/3ML Neb) 2.5 mg NOW STAT INH 04/08/17 15:01 04/08/17 15:05 DC 04/08/17 15:17 2.5 MG Albuterol/ Ipratropium (Duoneb) 3 ml NOW STAT INH 04/08/17 17:02 04/08/17 17:03 DC 04/08/17 17:47 3 ML ECG Indication: chest pain Rate (beats per minute): 75 Rhythm: normal sinus Findings: no ectopy, other (normal axis, low voltage) ED Course ED COURSE: Vital signs were reviewed and showed tachycardic. The patients medical record was reviewed The above diagnostic studies were performed and reviewed. ED treatments and interventions as stated above. 1427: The patient was evaluated in room C2B. A complete history and physical examination was performed. 1455: Upon reevaluation the patient is still experiencing symptoms. 1458: Morphine sulfate 4 mg IV, Benadryl 50 mg IV, Solu-Medrol 125 mg IV 1501: Albuterol sulfate 2.5 mg INH 1649: I discussed the patient's radiology results with Dr. Licea of radiology. 1700: Albuterol sulfate 2.5 mg INH 1702: DuoNeb 3 ml INH 1751: The patient ambulated and her O2 saturations dropped to 89. I discussed my findings with the patient and she understands and agrees with the treatment plan. The patient remained stable while under my care. The patient will be evaluated for further management. 1754: I spoke with Divya Jean PA-C. We discussed the patient's case. We discussed drug-seeking behavior. The patient will be evaluated by the [facility] for further management. Medical Decision Differential diagnoses includes but is not limited to acute coronary syndrome, myocardial infarction, pericarditis, pulmonary embolus, aortic dissection, pneumonia, pneumothorax, musculoskeletal, shingles, esophageal. Patient is a 56-year-old female who presents to ER for the past medical history of asthma for left-sided chest pain. She notes that this has been worsening over the past 24 hours. CBC shows a persistent anemia which is chronic. No significant leukocytosis. BMP along with troponin was negative. INR was therapeutic at 2.4. CT a of the chest shows resolution of PEs. Patient was given steroids and Benadryl for premedication. She was given a small dose of IV morphine. We obtained an ultrasound of the left upper extremity which was negative as the CT questioned a clot. On exam I believe that she has muscle skeletal chest wall pain. EKG was unremarkable. She has some chest tightness which is typical for her asthma. Vitals were unremarkable. Several nebs given. Refused any additional pain medications. Patient continually asked for narcotics. I do believe that she is able to go home. Informed patient of this. She states she is uncomfortable and cannot go home. Requested to ambulated. Pulse ox drops to 85%. Discussed with nurse who ambulated her and he notes that he believe she was holding her breath. Extensively reviewed chart. Previous admission occurred same wave under Dr. Vasquez. I believe wants to be admitted which is for narcotics. Upon review of Epic there does appear to be multiple necrotic agreements. Discussed with internal medicine. Patient will be evaluated for a further workup per her request. Medication Reconcilliation Current Medication List: was personally reviewed by me Blood Pressure Screening Patient's blood pressure: Normal blood pressure Consults Time Called: 175 Consulting Physician: Divya Anne PA-C Returned Call: 175 I spoke with Divya Jean PA-C. We discussed the patient's case. We discussed drug-seeking behavior. The patient will be evaluated by the [facility] for further management. Impression Primary Impression: Left-sided chest wall pain Additional Impression: Asthma exacerbation Scribe Attestation The scribe's documentation has been prepared under my direction and personally reviewed by me in its entirety. I confirm that the note above accurately reflects all work, treatment, procedures, and medical decision making performed by me. Departure Information Dispostion Being Evaluated By Hospitalist Referrals Petra Kelly (PCP) Patient Instructions My [facility] Problem Qualifiers Additional Impression: Asthma exacerbation Asthma severity: unspecified severity Asthma persistence: unspecified Qualified Codes: J45.901 - Unspecified asthma with (acute) exacerbation
[2017-04-08] MEDS ORDERED: ACETAMINOPHEN 325 MG TAB PO PRN (19:00)
[2017-04-08] MEDS ORDERED: ONDANSETRON INJ 2 MG/ML 2 ML VIAL IV PRN (19:00)
[2017-04-08] MEDS ORDERED: CMD5 PO (19:11)
[2017-04-08] MEDS ORDERED: CYCLOBENZAPRINE HCL 5 MG TAB PO PRN (19:15)
[2017-04-08] MEDS: HYDROCODONE/ACETAMOPHEN 5/325MG TAB PO PRN (19:51)
--- NOTE | 2017-04-08 19:55 | History and Physical ---
History & Physical Date & Time of Service: Apr 08, 2017 at 19:04 Chief Complaint: Asthma, Back Left Pain Primary Care Physician: Petra Kelly History of Present Illness Source: patient, clinic records, hospital records Pt is 56 y/o F with hx asthma, adrenal insufficiency secondary to chronic steroid use, iron deficiency anemia, chronic back pain, GERD, depression/anxiety , Hx PE on Coumadin presents with c/o Left sided CP that began last night. States sharp pain to anterior and left chest and rib cage aggravated with movement. Also c/o increased SOB and wheezing started this morning. C/O lower chest tightness which see describes as her typical sensation with asthma exacerbation. Pt with hx admission 02/18/17 -02/24/17 for PE and asthma exacerbation. She was sent home with home O2 to use prn and with ambulation. Pt states hasn't felt need to use that. She reports today getting dressed she felt SOB and her sats 88 % on RA and HR was 134. She said she didn't think of using her O2. She didn't try using her albuterol inhaler or home neb. States she was worried so came to ER. Pt reports INR 1.1 last week, previously had been >2. Pt with significant asthma hx with multiple ER visits and hospitalizations over the years. Pt states finished doxycyline last night after 10 day course. Reports had productive cough x 1 day and called pulm and was rx doxy and prednisone taper. States finished taper 04/02. Follows with [facility]-pulmonology. Is not on main maintenance asthma medicine as she had been tried on multiple things without improvement per pt. Reports hx several bronchoscopies to remove mucous plugs and hx bronchial thermoplasty. Hx chronic back pain secondary to T9 compression fracture and on chronic pain meds for that. Denies recent injury or fall. In ER CT angio chest shows resolution previous PE, no new PE. U/S LUE: no DVT. vitals stable. EKG: NSR. negative troponin. INR: 2.4. Pt given solumedrol 125mg , nebs, morphine 4mg. Pt requesting admission as afraid to go home that things will worsen. 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 (14) Microscopic hematuria Permanent Comment: evaluated by Urology; no significant path per patient Status: Chronic (15) Osteoporosis Status: Chronic (16) Sleep apnea Status: Chronic (17) Vertebral fracture, closed Status: Chronic Surgical Problems: (1) H/O sinus surgery Status: Chronic (2) History of bronchoscopy Permanent Comment: for mucous plugs Status: Chronic (3) History of carpal tunnel surgery Status: Chronic (4) S/P cardiac cath Status: Chronic (5) S/P herniorrhaphy Status: Chronic (6) Status post appendectomy Status: Chronic (7) Status post hernia repair Status: Chronic (8) Status post partial colectomy Status: Chronic (9) Status post thermoplasty Status: Chronic (10) Status post thermoplasty Status: Chronic Family History FH: heart disease FATHER FH: sleep apnea MOTHER FHx: cancer FHx: gallbladder disease Hypertension MOTHER Kidney disease MOTHER Social History Smoking Status: Former Smoker (quit 11/2003. smoked 1ppd x 30 yrs) Smokeless Tobacco Use: No Alcohol Use: none Drug Use: none Marital Status: Housing status: lives with significant other Occupational Status: unemployed Immunizations History of Influenza Vaccine: Yes Influenza Vaccine Date: Jan 25, 2016 History of Tetanus Vaccine?: Yes Tetanus Immunization Date: Aug 16, 2007 History of Pneumococcal: Yes Pneumococcal Date: Jan 02, 2016 Multi-Drug Resistant Organisms History of MDRO: No Allergies Coded Allergies: Aspirin (Verified Allergy, Intermediate, HIVES, 10/29/16) Ibuprofen (Verified Allergy, Intermediate, HIVES, 10/29/16) Levofloxacin (Verified Allergy, Intermediate, HIVES, 10/29/16) Iodinated Diagnostic Agents (Verified Allergy, Unknown, HIVES, 10/29/16) Pregabalin (Verified Adverse Reaction, Intermediate, SEVERE DEPRESSION, ) Zolpidem (Verified Adverse Reaction, Intermediate, HALLUCINATIONS, 10/29/16 ) Gabapentin (Verified Adverse Reaction, Mild, GOOFY THOUGHTS, 10/29/16) Home Medications Scheduled Cholecalciferol (Vitamin D), 1,000 INTER.UNIT PO BID Citalopram (Citalopram Hydrobromide), 40 MG PO QAM Cyanocobalamin (Vitamin B-12), 1,000 MCG PO QAM Docusate Sodium (Colace), 200 MG PO HS Furosemide (Furosemide), 40 MG PO Q2D Home O2 Therapy (Oxygen), 2 LITERS NA HS Immune Globulin (Human) Iv (Privigen), 1 DOSE IV MONTHLY Omeprazole (Prilosec), 20 MG PO BID Potassium Chloride (Micro-K Ext Rel), 10 MEQ PO Q2D Prednisone (Prednisone), 10 MG PO DAILY Warfarin Sod (Coumadin), 1 TAB PO UD Scheduled PRN Albuterol Hfa (Ventolin Hfa), 2 PUFFS INH Q6H PRN for SOB/Wheezing Cyclobenzaprine HCl (Cyclobenzaprine HCl), 5 MG PO HS PRN for Muscle Spasm Epinephrine (Epipen 2-Deshawn), 0.3 MG IM UD PRN for ALLERGIC REACTION Hydrocodone/Acetaminophen 5MG/325MG ([place] 5MG/325MG), 1-2 TABS PO Q6H PRN for Pain Levalbuterol Hcl (Levalbuterol Hcl), 1.25 MG INH Q4 PRN for SOB/Wheezing Lorazepam (Ativan), 2 MG PO HS PRN for Anxiety Lorazepam (Lorazepam), 1 MG PO DAILY PRN for Anxiety Review of Systems Constitutional: + weakness (feels weak and not back to normal since last hosptial admission in Feb), No fever, No chills, No sweats, No weight loss Eyes: No eye pain, No redness, No discharge ENT: No unusual epistaxis, No nasal symptoms, No sore throat, No tinnitus, No trouble swallowing Respiratory: + problem reported (see HPI), No dyspnea at rest, No hemoptysis Cardiovascular: + problem reported (see HPI), No orthopnea, No PND, No edema, No palpitations Abdomen: No pain, No nausea, No vomiting, No diarrhea, No constipation, No GI bleeding Musculoskeletal: + joint pain (chronic back pain), + problem reported (see HPI) , No calf pain Genitourinary - Female: No dysuria, No urinary frequency, No urinary urgency, No urinary incontinence, No urinary retention, No hematuria Neurologic: No paralysis, No weakness, No numbness/tingling, No vertigo Psychiatric: + depression symptoms, + anxiety (hx anxiety and depression - feels stable on meds), No anhedonism, No insomnia, No substance abuse, No problem reported Endocrine: No excessive thirst, No excessive urination Hematologic / Lymphatic: No night sweats Integumentary: No rash, No itch Physical Exam Vital Signs Date Time Temp Pulse Resp B/P (MAP) Pulse Ox O2 Delivery O2 Flow Rate FiO2 04/08/17 18:44 85 Room Air 04/08/17 17:25 83 22 119/73 93 Room Air 04/08/17 16:15 91 22 131/79 96 Room Air 04/08/17 15:21 79 16 118/80 100 Room Air 04/08/17 14:25 37.0 101 20 149/84 94 Room Air General Appearance: no apparent distress, + obese Head: normocephalic, atraumatic Eyes: normal inspection, PERRL, EOMI, sclerae normal ENT: hearing grossly normal, pharynx normal, + pertinent finding (mucous membranes moist) Neck: supple, no JVD, trachea midline Respiratory/Chest: no respiratory distress, no accessory muscle use, + pertinent finding (faint expiratory wheeze noted. chest wall +tenderness to palpation left lateral ribs. port in place left upper chest without surrounding erythema or edema) Cardiovascular: regular rate, rhythm, no edema, no murmur, normal peripheral pulses Abdomen/GI: normal bowel sounds, non tender, soft Back: normal inspection, + pertinent finding (+midline thoracic back pain to palpation) Extremities/Musculoskelatal: normal inspection, no calf tenderness, normal capillary refill, no pedal edema, non-tender, + pertinent finding (ROM intact) Neurologic/Psych: alert, normal mood/affect, oriented x 3 Skin: normal color, warm/dry Diagnostics Laboratory Results Results Past 24 Hours Test 04/08/17 15:00 Range/Units White Blood Count 9.85 4.8-10.8 K/uL Red Blood Count 4.14 4.2-5.4 M/uL Hemoglobin 9.0 12.0-16.0 g/dL Hematocrit 31.4 37-47 % Mean Corpuscular Volume 75.8 80-100 fL Mean Corpuscular Hemoglobin 21.7 25-34 pg Mean Corpuscular Hemoglobin Concent 28.7 32-36 g/dl Platelet Count 231 130-400 K/uL Mean Platelet Volume 10.7 7.4-10.4 fL Neutrophils (%) (Auto) 65.5 % Lymphocytes (%) (Auto) 21.8 % Monocytes (%) (Auto) 8.9 % Eosinophils (%) (Auto) 2.7 % Basophils (%) (Auto) 0.6 % Neutrophils # (Auto) 6.44 1.4-6.5 K/uL Lymphocytes # (Auto) 2.15 1.2-3.4 K/uL Monocytes # (Auto) 0.88 0.11-0.59 K/uL Eosinophils # (Auto) 0.27 0-0.5 K/uL Basophils # (Auto) 0.06 0-0.2 K/uL RDW Standard Deviation 52.2 36.4-46.3 fL RDW Coefficient of Variation 18.6 11.5-14.5 % Immature Granulocyte % (Auto) 0.5 % Immature Granulocyte # (Auto) 0.05 0.00-0.02 K/uL Prothrombin Time 26.8 9.0-12.0 SECONDS Prothromb Time International Ratio 2.4 0.9-1.1 Sodium Level 139 136-145 mmol/L Potassium Level 3.8 3.5-5.1 mmol/L Chloride Level 104 98-107 mmol/L Carbon Dioxide Level 32 21-32 mmol/L Anion Gap 3.0 3-11 mmol/L Blood Urea Nitrogen 12 7-18 mg/dl Creatinine 0.71 0.60-1.20 mg/dl Est Creatinine Clear Calc Drug Dose 99.1 ml/min Estimated GFR () 109.6 Estimated GFR (Non- 94.6 BUN/Creatinine Ratio 17.4 10-20 Random Glucose 102 70-99 mg/dl Calcium Level 8.3 8.5-10.1 mg/dl Troponin I < 0.015 0-0.045 ng/ml Diagnostic Radiology CXR: IMPRESSION: No acute cardiopulmonary abnormality. CTA CHEST: IMPRESSION: 1. Interval resolution of previously noted pulmonary emboli. No new pulmonary emboli. 2. Mild perivascular inflammatory change along the course of the left brachial/axillary vein. If there is clinical concern, left upper extremity venous Doppler could be obtained to ensure patency. 3. Bronchial wall thickening and minimal changes of emphysema. 4. The previously noted right apical nodule is no longer apparent, possibly indicating an inflammatory etiology. 5. Osteopenia with unchanged compression deformities of T9 and T11. U/S LUE: IMPRESSION: No evidence of deep venous thrombosis. EKG EKG: NSR, rate 75, no ST elevations noted EKG read by electrical tester battery: Normal sinus rhythm Low voltage QRS Borderline ECG When compared with ECG of 19-FEB-2017 12:00, Nonspecific T wave abnormality, improved in Inferior leads Confirmed by PEDRO SANCHEZ ([id number]) on 04/08/2017 3:30:05 PM Impression Assessment and Plan CHEST PAIN R/O ACS. Risk factors: HTN, obesity EKG: NSR rate 75. Negative initial Troponin.CT scan in ER today shows resolution previous PE, no new PE, no infiltrate. Stable T9 & T11 deformities. Pain reproducible with palpation. suspect musculoskeletal etiology -Monitor Vitals - Repeat EKG in am - Will trend cardiac enzymes -pt reports can't tolerate ASA -repeat EKG for CP -lidocaine patch -can continue home norco, will avoid other narcotics at this time ASTHMA At this time do not feel asthma exacerbation. Pt just finished steroid taper on 04/02 and finished 10 day course doxy for reported cough x 1 morning. Pt given Solumedrol 125mg in ER. Will hold on further steroids at this time. She has home O2 to use sats <92% and with ambulation. hold antibiotics at this time, afebrile, no leukocytosis, no infiltrate on CXR or CT scan. -DuoNeb prn wheezing/SOB -O2 as per protocol -CBC in am -will consider pulmonology consult if worsening HX PE CT scan today shows resolving PE from previous in 02/2017. INR: 2.4 -continue Coumadin CHRONIC LOW BACK PAIN -hx T9 compression fracture 10/2016 and chronic pain, no worsening noted on CT chest today -continue home pain meds - norco 5/325mg OBSTRUCTIVE SLEEP APNEA -CPAP at bedtime as per home settings ANXIETY/DEPRESSION -Celexa daily -Ativan 1mg po in am prn anxiety. ativan 2mg in evening prn anxiety DVT PROPHYLAXIS -Coumadin DISPOSITION -admit tele obs -Full Code as per discussion with pt -Follows with Petra NICHOLAS for routine care Pt was seen with Dr Chan . See addendum ADDENDUM: I have seen and examined the patient and agree with the assessment and plan as above. Ms. Mahajan had some mild end-expiratory wheezing present and some TTP on her lateral intercostals that was consistent with MSK pain. Narcotics are not indicated for this so she was given lidocaine patch. May be beneficial to put her on Tylenol 02/12 for a few days. Encouraged her to work on her physical fitness as an outpatient. Serial cardiac enzymes overnight and lidocaine patch. Expect that she can go home tomorrow. Dustin, DO Level of Care Telemetry Resuscitation Status FULL RESUSCITATION VTE Prophylaxis VTE Risk Assessment Done? Y/N: Yes Risk Level: High Given or contraindicated: Warfarin (Coumadin) Additional Copies To Petra Kelly
[2017-04-08 19:56] VITALS: BP 125/79; PULSE 82; TEMP 36.8; Ht 165.1 cm; Wt 97.0 kg
[2017-04-08] MEDS ORDERED: IV FLUIDS COMPLETED PRN (20:00)
[2017-04-08] MEDS: WARFARIN SOD 5 MG TAB PO SCH (20:42)
[2017-04-08] MEDS: LIDODERM (LIDOCAINE) PATCH 5% TD SCH (20:43)
[2017-04-08] MEDS: CHOLECALCIFEROL 1000 INTER.UNIT TAB PO SCH (20:43)
[2017-04-08] MEDS: PANTOprazole SOD 40 MG TAB PO SCH (20:44)
[2017-04-08] MEDS: DOCUSATE SODIUM 100 MG CAP PO SCH (20:44)
[2017-04-08] MEDS: ALBUT/IPRATROP 3MG/0.5MG NEB 3 ML VIAL INH SCH (23:10)
[2017-04-08 23:14] VITALS: PULSE 84; O2SAT 92
[2017-04-08 23:50] VITALS: BP 97/61; PULSE 79; TEMP 36.7; O2SAT 92
[2017-04-09] VITALS (21 sets, daily range): BP systolic 95–132; BP diastolic 56–80; PULSE 56–92; TEMP 36.4–37.2; O2SAT 92–100
[2017-04-09] MEDS: LORAZEPAM 2 MG TAB PO PRN (00:11)
[2017-04-09] MEDS: HYDROCODONE/ACETAMOPHEN 5/325MG TAB PO PRN ×4 (02:22→19:48)
[2017-04-09 06:21] LABS: INR 2.6 (0.9-1.1); PROTHROMBIN TIME (PATIENT) 28.5 SECONDS (9.0-12.0)
[2017-04-09 06:22] LABS: HEMATOCRIT 29.4 % (37-47); MEAN CELL VOLUME 75.4 fL (80-100); MEAN CORPUSCULAR HGB CONC 27.9 g/dl (32-36); MEAN PLATELET VOLUME 10.5 fL (7.4-10.4); PLATELET COUNT 243 K/uL (130-400); WHITE BLOOD COUNT 9.73 K/uL (4.8-10.8)
[2017-04-09 06:41] LABS: BUN/CREATININE RATIO 16.3 (10-20); CALCIUM 8.2 mg/dl (8.5-10.1); CREATININE 0.67 mg/dl (0.60-1.20); POTASSIUM 4.1 mmol/L (3.5-5.1)
[2017-04-09] MEDS: ALBUT/IPRATROP 3MG/0.5MG NEB 3 ML VIAL INH SCH ×4 (07:15→19:27)
[2017-04-09] MEDS: FUROSEMIDE 40 MG TAB PO SCH (08:17)
[2017-04-09] MEDS: CYANOCOBALAMIN 500 MCG TAB (VIT B-12) PO SCH (08:18)
[2017-04-09] MEDS: PANTOprazole SOD 40 MG TAB PO SCH ×2 (08:18→21:06)
[2017-04-09] MEDS: POTASSIUM CHLORIDE 10 MEQ TABCR PO SCH (08:18)
[2017-04-09] MEDS: CITALOPRAM 40 MG TAB PO SCH (08:19)
[2017-04-09] MEDS: CHOLECALCIFEROL 1000 INTER.UNIT TAB PO SCH ×2 (08:19→21:06)
[2017-04-09] MEDS: LORAZEPAM 1 MG TAB PO PRN (08:47)
[2017-04-09] MEDS: POLYETHYLENE (MIRALAX) 17 GM PACK PO SCH ×2 (12:50→15:15)
--- NOTE | 2017-04-09 17:32 | Gastrointestinal Consultation ---
Gastrointestinal Consultation Date of Consultation: Apr 09, 2017 Attending Physician: Dr. Mar Consulting Physician: Dr. Gallagher Reason for Consultation: anemia, melena History of Present Illness Patient is a 56 year old female patient of CRISTOPHER Noguera with a hx of alpha 1 antitrypsin deficiency, asthma on chronic steroids, who was dx'ed with an acute PE in February. She presented yesterday for chest pain. Imaging is consistent with a resolving PE, no evidence of cardiac events. GI is consulted as she reports black stools for the past few days. She also reports increased heartburn, mild occasional epigastric discomfort. Hb on arrival was 9.0 and today is 8.2. Her baseline appears to be approx 9.5. She is awake, alert, oriented and hemodynamically stable. Past Medical/Surgical History Medical Problems: (1) Acute asthma exacerbation Status: Acute (2) Acute asthma exacerbation Status: Acute (3) Asthma exacerbation Status: Acute (4) Asthma exacerbation Status: Acute (5) Asthma exacerbation Status: Acute (6) Asthma exacerbation Status: Acute (7) Asthma with exacerbation Status: Acute (8) Asthma with exacerbation Status: Acute (9) Asthmatic bronchitis with acute exacerbation Status: Acute (10) Bronchitis Status: Acute (11) Bronchospasm Status: Acute (12) Chronic anemia Status: Acute (13) Chronic anemia Status: Chronic (14) Closed fracture of T9 vertebra Status: Acute (15) Elevated d-dimer Status: Acute (16) Hypoxia Status: Acute (17) Hypoxia Status: Acute (18) Hypoxia Status: Acute (19) Hypoxia Status: Acute (20) Hypoxia Status: Acute (21) Hypoxia Status: Acute (22) Left-sided chest wall pain Status: Acute (23) Pneumonia Status: Acute (24) Reactive airway disease Status: Acute (25) Traumatic compression fracture of T9 thoracic vertebra Status: Acute Surgical Problems: (1) Status post thermoplasty Status: Chronic Past Medical History: 1) Epjre-0-zjjeueehooy deficiency carrier (2) Anxiety (3) Asthma (4) Chronic anemia (5) Chronic back pain (6) Depression (7) Deterioration of spinal disc of lower back (8) Dyslipidemia (9) GERD (gastroesophageal reflux disease) (10) H/O adrenal insufficiency (11) History of colonic diverticulitis (12) History of pulmonary embolism (13) Immunoglobulin deficiency (14) Chronic Microscopic hematuria (15) Osteoporosis (16) Sleep apnea (17) Vertebral fracture, closed Past Surgical History: (1) Sinus surgery (2) Bronchoscopy (3) Carpal tunnel surgery (4) Cardiac cath (5) Herniorrhaphy (6) Appendectomy (7) Hernia repair (8) Partial colectomy Family History FH: heart disease FATHER FH: sleep apnea MOTHER FHx: cancer FHx: gallbladder disease Hypertension MOTHER Kidney disease MOTHER Social History Smoking Status: Former Smoker Alcohol Use: none Drug Use: none Marital Status: Housing Status: lives with significant other Occupation Status: unemployed Allergies Coded Allergies: Aspirin (Verified Allergy, Intermediate, HIVES, 10/29/16) Ibuprofen (Verified Allergy, Intermediate, HIVES, 10/29/16) Levofloxacin (Verified Allergy, Intermediate, HIVES, 10/29/16) Iodinated Diagnostic Agents (Verified Allergy, Unknown, HIVES, 10/29/16) Pregabalin (Verified Adverse Reaction, Intermediate, SEVERE DEPRESSION, ) Zolpidem (Verified Adverse Reaction, Intermediate, HALLUCINATIONS, 10/29/16 ) Gabapentin (Verified Adverse Reaction, Mild, GOOFY THOUGHTS, 10/29/16) Current Medications Home Meds and Scripts Medications Dose Route/Sig Max Daily Dose Days Date Category Dose Instructions Coumadin (Warfarin Sod) 5 Mg Tab 1 Tab PO UD 04/08/17 Reported 1 tab po tues, thurs, sat 1.5 tab po mon, wed, fri, sun Oxygen Gas 2 Liters NA HS 02/24/17 Rx 2lts while ambulating and USE DIRECTED WITH C PAP Micro-K Ext Rel (Potassium Chloride) 10 Meq Capcr 10 Meq PO Q2D 02/18/17 Reported Prednisone 10 Mg Tab 10 Mg PO DAILY 02/18/17 Reported prn asthma flare as directed Furosemide 40 Mg Tab 40 Mg PO Q2D 02/18/17 Reported Levalbuterol Hcl 1.25 Mg/3 Ml Neb 1.25 Mg INH Q4 PRN 11/27/16 Rx Citalopram Hydrobromide (Citalopram) 40 Mg Tab 40 Mg PO QAM 11/27/16 Reported Cyclobenzaprine HCl 5 Mg Tab 5 Mg PO HS PRN 11/27/16 Reported Ventolin Hfa (Albuterol) 200 Puffs/86177 Mcg Aers 2 Puffs INH Q6H PRN 08/06/16 Reported Vitamin D (Cholecalciferol) 1,000 Unit Tab 1,000 Inter.unit PO BID 06/19/16 Reported Privigen (Immune Globulin (Human) Iv) 5 Gm/50 Ml Inj 1 Dose IV MONTHLY 12/20/15 Reported [place] 5MG/325MG (Acetaminophen/Hydrocodone Bitart) Tab 1-2 Tabs PO Q6H PRN 07/09/15 Reported Colace (Docusate Sodium) 100 Mg Cap 200 Mg PO HS 05/06/15 Reported Lorazepam 1 Mg Tab 1 Mg PO DAILY PRN 01/08/15 Reported Vitamin B-12 (Cyanocobalamin) 1,000 Mcg Tab 1,000 Mcg PO QAM 12/13/14 Reported Ativan (Lorazepam) 1 Mg Tab 2 Mg PO HS PRN 12/13/14 Reported Prilosec (Omeprazole) 20 Mg Cap 20 Mg PO BID 04/05/14 Reported Epipen 2-Deshawn (Epinephrine) 0.3 Mg Inj 0.3 Mg IM UD PRN 04/05/14 Reported Review of Systems Constitutional: No fever, No chills, No sweats, No weight loss, No weakness Eyes: No eye pain, No redness ENT: No sore throat, No trouble swallowing, No pain on swallowing Respiratory: + shortness of breath (chronic), No cough, No wheezing, No dyspnea on exertion Cardiac: + chest pain, No edema, No palpitations Abdomen: + see HPI, + pain, + nausea (mild, occasional) Neuro: No memory loss, No weakness, No numbness/tingling, No vertigo, No balance problems Psych: No depression symptoms, No anxiety, No insomnia Heme: No abnormal bleeding/bruising, No night sweats Endo: No excessive thirst, No excessive urination Skin: No rash, No itch, No new/changing skin lesions, No jaundice Physical Exam Date Time Temp Pulse Resp B/P (MAP) Pulse Ox O2 Delivery O2 Flow Rate FiO2 04/09/17 16:50 36.7 73 18 125/75 96 04/09/17 16:20 36.9 73 18 114/69 96 04/09/17 16:05 36.7 72 18 114/67 93 04/09/17 15:46 36.9 86 18 126/72 11/29/17 15:31 36.7 80 18 107/69 95 04/09/17 14:41 70 18 93 Room Air 04/09/17 14:03 36.9 75 18 118/76 94 04/09/17 13:30 36.9 77 20 109/69 94 04/09/17 13:02 37.0 92 20 114/67 96 04/09/17 12:30 37.1 91 18 128/72 94 04/09/17 12:19 36.8 88 18 110/66 (81) 94 Room Air 04/09/17 12:15 37.0 90 20 132/73 96 04/09/17 12:00 Room Air 04/09/17 11:53 36.7 88 18 97/60 04/09/17 11:20 75 18 93 Room Air 04/09/17 09:22 Room Air 04/09/17 07:32 36.4 59 18 114/80 (91) 100 Nasal Cannula 2.0 04/09/17 07:15 78 18 96 BiPAP/CPAP 2.0 04/09/17 07:15 78 96 2.0 04/09/17 04:00 Room Air 04/09/17 04:00 36.6 56 15 96/56 (69) 92 CPAP 2.0 04/09/17 00:00 Room Air 04/08/17 23:50 36.7 79 18 97/61 (73) 92 Room Air 04/08/17 23:15 2.0 04/08/17 23:14 84 18 92 Room Air 04/08/17 20:01 133/83 04/08/17 20:00 76 92 04/08/17 20:00 Room Air 04/08/17 19:56 36.8 82 18 125/79 Room Air 04/08/17 19:31 125/79 04/08/17 19:30 79 18 125/79 90 Room Air 04/08/17 18:44 85 Room Air 04/08/17 17:25 83 22 119/73 93 Room Air General Appearance: no apparent distress Eyes: normal inspection, EOMI Neck: supple, no adenopathy, thyroid normal, no JVD Respiratory/Chest: chest non-tender, no accessory muscle use, + wheezing ( scattered) Cardiovascular: regular rate, rhythm, no JVD, no murmur Abdomen: normal bowel sounds, soft, no organomegaly, + tenderness (minimal, soft) Extremities: normal inspection, no pedal edema, normal capillary refill Neurologic/Psych: alert, normal mood/affect, oriented x 3 Skin: normal color, no jaundice, warm/dry, no rash Laboratory Results Last 24 Hours Test 04/09/17 05:55 04/09/17 08:16 04/09/17 09:42 White Blood Count 9.73 K/uL Red Blood Count 3.90 M/uL Hemoglobin 8.2 g/dL Hematocrit 29.4 % Mean Corpuscular Volume 75.4 fL Mean Corpuscular Hemoglobin 21.0 pg Mean Corpuscular Hemoglobin Concent 27.9 g/dl RDW Standard Deviation 51.2 fL RDW Coefficient of Variation 18.7 % Platelet Count 243 K/uL Mean Platelet Volume 10.5 fL Prothrombin Time 28.5 SECONDS Prothromb Time International Ratio 2.6 Sodium Level 137 mmol/L Potassium Level 4.1 mmol/L Chloride Level 103 mmol/L Carbon Dioxide Level 29 mmol/L Anion Gap 5.0 mmol/L Blood Urea Nitrogen 11 mg/dl Creatinine 0.67 mg/dl Est Creatinine Clear Calc Drug Dose 105.3 ml/min Estimated GFR () 113.1 Estimated GFR (Non- 97.6 BUN/Creatinine Ratio 16.3 Random Glucose 172 mg/dl Calcium Level 8.2 mg/dl Total Creatine Kinase 28 U/L Creatine Kinase MB < 0.5 ng/ml Creatine Kinase MB Ratio Troponin I < 0.015 ng/ml Iron Level 12 mcg/dl Impression Patient is a 56 year old female on chronic steroids with report of melena, w/o significant drop in Hb. Differentials considered are gastritis, esophagitis, ulcer disease. Plan 1. We held this afternoon's coumadin dose. 2. Will do a diagnostic EGD tomorrow though not able to do a therapeutic intervention w/o reversing her coumadin or bridging with heparin - so will likely repeat the EGD if any therapies are needed. I explained this to the pt who agreed with this plan and would like to go forward with EGD tomorrow. 3. NPO after midnight.
--- NOTE | 2017-04-09 17:35 | Medical Consult ---
Consultation Note Date of Service Apr 09, 2017. Consultation Note Attg add: I reviewed chart and labs, interviewed and examined pt. Pt with chronic iron def with baseline hgb 9-10, on anticoagulation for recent PE, with asthma, admit for chest pain. VS normal on admit. She was noted to have Hgb of 9 on admission, which fell to 8. BUN WNL. INR 2.6. EGD in 08/2015 showed candidiasis. Willl tentatively plan for EGD tomorrow, pending re-eval of resp status
[2017-04-09] MEDS: DOCUSATE SODIUM 100 MG CAP PO SCH (21:05)
[2017-04-09] MEDS: LIDODERM (LIDOCAINE) PATCH 5% TD SCH (21:07)
--- NOTE | 2017-04-09 21:11 | Progress Note ---
Medicine Progress Note Date & Time of Visit: Apr 09, 2017 at 21:07. Subjective seen resting in bed, not in distress still reports exertional dyspnea, fatigue has lower abdominal pain denies cough, sputum, fever/chills has bilateral lower rib pain, mild no other symptoms Objective Last 8 Hrs Date Time Temp Pulse Resp B/P (MAP) Pulse Ox O2 Delivery O2 Flow Rate FiO2 04/09/17 20:00 Room Air 04/09/17 19:27 76 18 96 Room Air 04/09/17 18:20 36.7 77 18 107/68 96 04/09/17 17:20 37.2 82 18 124/77 93 04/09/17 16:50 36.7 73 18 125/75 96 04/09/17 16:20 36.9 73 18 114/69 96 04/09/17 16:05 36.7 72 18 114/67 93 04/09/17 16:00 Room Air 04/09/17 15:46 36.9 86 18 126/72 04/09/17 15:31 36.7 80 18 107/69 95 04/09/17 14:41 70 18 93 Room Air 04/09/17 14:03 36.9 75 18 118/76 94 04/09/17 13:30 36.9 77 20 109/69 94 Physical Exam: General-oriented x 3, not in distress, speaks in sentences with no effort Head- atraumatic Eyes- PERRL, EOMI, anicteric ENT- oropharynx clear Neck- supple, no JVD, no adenopathy, no thyromegaly Lungs- clear to auscultation bilaterally Heart- regular rhythm; no murmur, no gallop Abdomen- normal bowel sounds, soft, nontender, no masses or hepatosplenomegaly Extremities- no pretibial edema, no calf tenderness; peripheral pulses intact Neuro- alert, oriented x 3; PERRL, EOMI; no facial palsy; no dysarthria; motor 5 /5 bilaterally; sensation 100% on all ext no other symptoms Skin- warm & dry Laboratory Results: Last 24 Hours Test 04/09/17 05:55 04/09/17 08:16 04/09/17 09:42 04/09/17 17:45 White Blood Count 9.73 K/uL Red Blood Count 3.90 M/uL Hemoglobin 8.2 g/dL Hematocrit 29.4 % Mean Corpuscular Volume 75.4 fL Mean Corpuscular Hemoglobin 21.0 pg Mean Corpuscular Hemoglobin Concent 27.9 g/dl RDW Standard Deviation 51.2 fL RDW Coefficient of Variation 18.7 % Platelet Count 243 K/uL Mean Platelet Volume 10.5 fL Prothrombin Time 28.5 SECONDS Prothromb Time International Ratio 2.6 Sodium Level 137 mmol/L Potassium Level 4.1 mmol/L Chloride Level 103 mmol/L Carbon Dioxide Level 29 mmol/L Anion Gap 5.0 mmol/L Blood Urea Nitrogen 11 mg/dl Creatinine 0.67 mg/dl Est Creatinine Clear Calc Drug Dose 105.3 ml/min Estimated GFR () 113.1 Estimated GFR (Non- 97.6 BUN/Creatinine Ratio 16.3 Random Glucose 172 mg/dl Calcium Level 8.2 mg/dl Total Creatine Kinase 28 U/L Creatine Kinase MB < 0.5 ng/ml Creatine Kinase MB Ratio Troponin I < 0.015 ng/ml Iron Level 12 mcg/dl Stool Occult Blood NEGATIVE Assessment & Plan CHEST PAIN R/O ACS. Risk factors: HTN, obesity EKG: NSR rate 75. Negative initial Troponin.CT scan in ER today shows resolution previous PE, no new PE, no infiltrate. Stable T9 & T11 deformities. Pain reproducible with palpation. suspect musculoskeletal etiology - cardiac markers negative EKG non ischemic - likely musculoskeletal pain DYSPNEA ON EXERTION, FATIGUE LIKELY SYMPTOMATIC ANEMIA R/O GI BLEED IN THE SETTING OF COUMADIN USE - Hg decreased to 8 Iron 12 INR 2.4 - GI consulted for possible EGD in AM coumadin held - 2 units pRBC ordered monitor ASTHMA At this time do not feel asthma exacerbation. Pt just finished steroid taper on 04/02 and finished 10 day course doxy for reported cough x 1 morning. Pt given Solumedrol 125mg in ER. Will hold on further steroids at this time. She has home O2 to use sats <92% and with ambulation. hold antibiotics at this time, afebrile, no leukocytosis, no infiltrate on CXR or CT scan. - not in exacerbation CXR , CT chest clear HX PE CT scan shows resolving PE from previous in 02/2017. INR: 2.4 - Coumadin HELD for EGD CHRONIC LOW BACK PAIN -hx T9 compression fracture 10/2016 and chronic pain, no worsening noted on CT chest -continue home pain meds - norco 5/325mg OBSTRUCTIVE SLEEP APNEA -CPAP at bedtime as per home settings ANXIETY/DEPRESSION -Celexa daily -Ativan 1mg po in am prn anxiety. ativan 2mg in evening prn anxiety DVT PROPHYLAXIS - INR 2.4 coumadin on HOLD DISPOSITION anticipate d/c home when medically stable Current Inpatient Medications: Current Inpatient Medications Medications (Trade) Dose Ordered Sig/Kaye Route Start Time Stop Time Status Last Admin Dose Admin Ioversol (Optiray 320) 125 ml UD PRN IV 04/08/17 15:30 04/12/17 15:29 Acetaminophen (Tylenol Tab) 650 mg Q4H PRN PO 04/08/17 19:00 05/08/17 18:59 Ondansetron HCl (Zofran Inj) 4 mg Q6H PRN IV 04/08/17 19:00 05/08/17 18:59 Albuterol/ Ipratropium (Duoneb) 3 ml QIDR INH 04/08/17 20:00 05/08/17 19:59 04/09/17 19:27 3 ML Cholecalciferol (Vitamin D Tab) 1,000 inter.unit BID PO 04/08/17 21:00 05/08/17 20:59 04/09/17 08:19 1,000 INTER.UNIT Citalopram Hydrobromide (celeXA TAB) 40 mg QAM PO 04/09/17 09:00 05/09/17 08:59 04/09/17 08:19 40 MG Cyanocobalamin (Vitamin B-12 Tab) 1,000 mcg QAM PO 04/09/17 09:00 05/09/17 08:59 04/09/17 08:18 1,000 MCG Cyclobenzaprine HCl (Flexeril Tab) 5 mg HS PRN PO 04/08/17 19:15 05/08/17 19:14 Docusate Sodium (coLACE CAP) 200 mg HS PO 04/08/17 21:00 05/08/17 20:59 04/08/17 20:44 200 MG Furosemide (Lasix Tab) 40 mg Q2D PO 04/09/17 09:00 05/09/17 08:59 04/09/17 08:17 40 MG Lorazepam (Ativan Tab) 1 mg DAILY PRN PO 04/08/17 19:15 05/08/17 19:14 04/09/17 08:47 1 MG Lorazepam (Ativan Tab) 2 mg HS PRN PO 04/08/17 19:15 05/08/17 19:14 04/09/17 00:11 2 MG Potassium Chloride (Klor-Con M10) 10 meq Q2D PO 04/09/17 09:00 05/09/17 08:59 04/09/17 08:18 10 MEQ Warfarin Sodium (Coumadin Tab) 5 mg TuThSa@1600 PO 04/08/17 21:00 05/08/17 20:59 Future hold 04/08/17 20:42 5 MG Pantoprazole Sodium (Protonix Tab) 40 mg BID PO 04/08/17 21:00 05/08/17 20:59 04/09/17 08:18 40 MG Lidocaine (Lidoderm Patch 5%) 1 patch HS TD 04/08/17 21:00 05/08/17 20:59 04/08/17 20:43 1 PATCH Miscellaneous (Remove Lidoderm Patch) 1 ea DAILY@0900 N/A 04/09/17 09:00 05/09/17 08:59 04/09/17 08:21 1 EA Miscellaneous (Iv Fluids Completed) 1 ea PRN PRN N/A 04/08/17 20:00 04/08/18 19:59 Warfarin Sodium (Coumadin Tab) 7.5 mg SuMoWeFr@1600 PO 04/09/17 16:00 05/09/17 15:59 Future hold Heparin Sodium (Porcine) (Heparin 100 Unit/ml 5ml Flush) 5 ml PRN PRN IV 04/09/17 06:45 05/09/17 06:44 04/09/17 19:51 5 ML Polyethylene (Miralax Powder Packet) 17 gm DAILY PO 04/09/17 12:00 05/09/17 11:59 04/09/17 15:15 17 GM Acetaminophen/ Hydrocodone Bitart ([place] 5/325 Tab) pain not relieved by tylenol Q6H PRN PO 04/09/17 19:30 04/22/17 19:14 04/09/17 19:48 1 TAB
[2017-04-10] VITALS (11 sets, daily range): BP systolic 102–151; BP diastolic 64–88; PULSE 60–71; TEMP 36.2–36.9; O2SAT 92–97
[2017-04-10 06:09] LABS: PROTHROMBIN TIME (PATIENT) 34.1 SECONDS (9.0-12.0)
[2017-04-10] MEDS: ALBUT/IPRATROP 3MG/0.5MG NEB 3 ML VIAL INH SCH ×4 (07:17→19:06)
[2017-04-10] MEDS ORDERED: LIDOCAINE HCL 2% 2 ML VIAL (20MG/ML) ONE (09:42)
[2017-04-10] MEDS ORDERED: FENTANYL CITRATE INJ 50 MCG/1 ML 2 ML VIAL ONE (09:42)
[2017-04-10] MEDS ORDERED: PROPOFOL IV EMULSION 10 MG/ML 20 ML VIAL IV ONE (09:42)
[2017-04-10] MEDS ORDERED: ALBUTEROL HFA INHALER 8.5 GM INH ONE (10:18)
--- NOTE | 2017-04-10 10:45 | Anesthesiology Progress Note ---
Anesthesia Post Op Note Date & Time Apr 10, 2017 at 10:44 Vital Signs Pain Intensity: 7 Vital Signs Past 12 Hours Date Time Temp Pulse Resp B/P (MAP) Pulse Ox O2 Delivery O2 Flow Rate FiO2 04/10/17 10:37 66 18 124/66 (85) 99 Room Air 04/10/17 10:20 71 13 135/68 (90) 99 Room Air 2.0 04/10/17 08:51 36.8 63 20 133/84 95 Room Air 2.0 04/10/17 08:43 36.8 63 20 133/84 (100) 95 Room Air 04/10/17 08:00 36.4 65 20 128/64 (85) 94 Room Air 04/10/17 07:19 64 18 94 Room Air 04/10/17 04:10 36.7 60 18 102/67 (79) 97 CPAP 2.0 04/10/17 04:00 CPAP 2.0 04/10/17 00:00 CPAP 2.0 04/09/17 23:16 36.7 73 18 95/58 (70) 95 CPAP 2.0 04/09/17 22:54 Room Air Notes Mental Status: alert / awake / arousable, participated in evaluation Pt Amnestic to Procedure: Yes Nausea / Vomiting: adequately controlled Pain: adequately controlled Airway Patency, RR, SpO2: stable & adequate BP & HR: stable & adequate Hydration State: stable & adequate Anesthetic Complications: no major complications apparent
--- NOTE | 2017-04-10 11:32 | GI REPORT ---
Procedure Date: 04/10/2017 9:05 AM Procedure: Upper GI endoscopy Indications: Acute post hemorrhagic anemia Medicines: See the Anesthesia note for documentation of the administered medications Complications: No immediate complications. Estimated Blood Loss: Estimated blood loss: none. Procedure: Pre-Anesthesia Assessment: - ASA Grade Assessment: III - A patient with severe systemic disease. After obtaining informed consent, the endoscope was passed under direct vision. Throughout the procedure, the patient's blood pressure, pulse, and oxygen saturations were monitored continuously. The Scope was introduced through the mouth, and advanced to the second part of duodenum. The upper GI endoscopy was accomplished without difficulty. The patient tolerated the procedure well. Findings: There was mild hyperkeratosis and desquamation of lower esophagus, suggestive of reflux esophagitis. No esophageal erosions were seen, and the esophagus was otherwise normal. The stomach was normal. The papilla was thought to be mildly prominent. Otherwise, the duodenum was normal. Impression: Mild non erosive esophagitis. No source of upper GI bleeding. Recommendation: - Discharge patient to floor. Twice daily PPI for 2 weeks, then once daily. Resume normal diet. No need to repeat cscopy at this point. Would ask primary service to chcek hgb daily while pt is an an inpt, and reconsult us if she develops signs of bleeding. Please call with questions. Sugey Gallagher M.D. Sugey Gallagher MD 04/10/2017 11:32:30 AM This report has been signed electronically. Note Initiated On: 04/10/2017 9:05 AM I attest to the content of the Intraoperative Record and orders documented therein, exceptions below
[2017-04-10] MEDS: PANTOprazole SOD 40 MG TAB PO SCH ×2 (11:49→21:41)
[2017-04-10] MEDS: CYANOCOBALAMIN 500 MCG TAB (VIT B-12) PO SCH (11:49)
[2017-04-10] MEDS: CHOLECALCIFEROL 1000 INTER.UNIT TAB PO SCH ×2 (11:49→21:41)
[2017-04-10] MEDS: CITALOPRAM 40 MG TAB PO SCH (11:49)
[2017-04-10 11:50] LABS: BASO % 0.7 %; BASO ABS # 0.07 K/uL (0-0.2); COMPLETE YES; EOS % 3.2 %; HEMATOCRIT 33.9 % (37-47); IG% 0.4 %; LYMPH % 35.3 %; LYMPH ABS # 3.55 K/uL (1.2-3.4); MEAN CELL VOLUME 78.5 fL (80-100); MEAN CORPUSCULAR HEMOGLOBIN 23.4 pg (25-34); MEAN CORPUSCULAR HGB CONC 29.8 g/dl (32-36); MEAN PLATELET VOLUME 10.5 fL (7.4-10.4); MONO % 6.2 %; NEUT % 54.2 %; PLATELET COUNT 218 K/uL (130-400); RED BLOOD COUNT 4.32 M/uL (4.2-5.4); WHITE BLOOD COUNT 10.07 K/uL (4.8-10.8)
[2017-04-10] MEDS: POLYETHYLENE (MIRALAX) 17 GM PACK PO SCH (11:50)
[2017-04-10 12:17] LABS: BUN/CREATININE RATIO 17.8 (10-20); CALCIUM 8.5 mg/dl (8.5-10.1); CREATININE 0.87 mg/dl (0.60-1.20); POTASSIUM 3.6 mmol/L (3.5-5.1)
[2017-04-10] MEDS: HYDROCODONE/ACETAMOPHEN 5/325MG TAB PO PRN ×3 (15:27→21:55)
[2017-04-10] MEDS: WARFARIN SOD 5 MG TAB PO SCH (16:25)
[2017-04-10] MEDS ORDERED: CYCLOBENZAPRINE HCL 5 MG TAB PO ONE (17:04)
--- NOTE | 2017-04-10 17:40 | DIAGNOSTIC IMAGING REPORT ---
ABDOMEN AND PELVIS CT WITHOUT CONTRAST CT DOSE: 1112.33 mGy.cm HISTORY: Acute left-sided abdominal pain left abdominal pain TECHNIQUE: Multiaxial CT images of the abdomen and pelvis were performed without contrast. A dose lowering technique was utilized adhering to the principles of ALARA. COMPARISON STUDY: CT abdomen and pelvis 05/13/2015, CTA chest 04/08/2017. FINDINGS: Mild right hemidiaphragmatic elevation. Subsegmental basilar consolidation lung bases suggest areas of atelectasis and/or scarring. No pneumatosis or pneumoperitoneum. Imaged inferior cardiac chambers are unremarkable. Left subclavian [id number] catheter is noted with distal tip terminating in the SVC just proximal to the superior cavoatrial junction. Evaluation of the solid abdominal organs is limited without the use of contrast. Prior cholecystectomy. Unchanged low attenuating lesion of the mid spleen, 7 x 6 mm. The spleen is otherwise unremarkable. The liver and adrenal glands are within normal limits. There is moderate diffuse pancreatic atrophy. There is a dropped cholecystectomy clip noted adjacent to the superior pole right kidney. No renal calculi or hydronephrosis. Kidneys, ureters and urinary bladder are unremarkable. Prior hysterectomy. Cystic lesion of the left adnexum measures 2.5 x 2.2 cm. This is unchanged from comparison. Moderate atherosclerosis of the aorta without aneurysm. No bulky adenopathy. There is no bowel obstruction or focal bowel wall thickening. Postsurgical changes of the mid sigmoid colon suggests partial sigmoid colon resection. Moderate colonic diverticulosis without diverticulitis. Post surgical changes suggest prior appendectomy. There are post surgical changes of the anterior abdominal wall. Patient obesity noted. The bones appear intact. Degenerative changes are seen within the spine, pelvis and hips. Anterior endplate compression deformities without retropulsed are seen within the T9 and T11 vertebral bodies which are unchanged from comparison CT of the chest. IMPRESSION: 1. No acute intra-abdominal or intrapelvic abnormality identified. 2. Prior cholecystectomy, hysterectomy and partial sigmoid colon resection. 3. Colonic diverticulosis without diverticulitis. 4. Cystic lesion of the left adnexum, 2.5 x 2.2 cm is unchanged from comparison study. Electronically signed by: Raudel Javed M.D. 04/10/2017 5:39 PM Dictated Date/Time: 04/10/2017 5:31 PM
--- NOTE | 2017-04-10 19:33 | Progress Note ---
Medicine Progress Note Date & Time of Visit: Apr 10, 2017 at 19:27. Subjective seen resting in bed report L sided abdominal pain, worse with movement and deep breathing denies shortness of breath, chest pain denies changes with urination or BM no other symptoms Objective Last 8 Hrs Date Time Temp Pulse Resp B/P (MAP) Pulse Ox O2 Delivery O2 Flow Rate FiO2 04/10/17 19:24 36.6 68 18 102/69 (80) 95 Room Air 04/10/17 19:06 71 16 94 Room Air 04/10/17 16:00 Room Air 04/10/17 15:51 60 16 95 Room Air 04/10/17 15:20 36.2 62 20 151/88 (109) 96 Room Air 04/10/17 12:00 Room Air 04/10/17 11:56 36.6 63 20 122/73 (89) 92 Room Air Physical Exam: General-oriented x 3, not in distress, speaks in sentences with no effort Eyes- EOMI, anicteric Neck- supple, no JVD, no adenopathy Lungs- clear breath sounds bilaterally Heart- regular rhythm; no murmur, normal rate Abdomen- normal bowel sounds, soft, mild-moderate tenderness on the LUQ Extremities- no pretibial edema, no calf tenderness Neuro- alert, oriented x 3; no gross focal deficits Skin- warm & dry Laboratory Results: Last 24 Hours Test 04/10/17 05:44 04/10/17 07:01 04/10/17 11:28 04/10/17 11:38 Prothrombin Time 34.1 SECONDS Prothromb Time International Ratio 3.0 Bedside Glucose 102 mg/dl 94 mg/dl White Blood Count 10.07 K/uL Red Blood Count 4.32 M/uL Hemoglobin 10.1 g/dL Hematocrit 33.9 % Mean Corpuscular Volume 78.5 fL Mean Corpuscular Hemoglobin 23.4 pg Mean Corpuscular Hemoglobin Concent 29.8 g/dl Platelet Count 218 K/uL Mean Platelet Volume 10.5 fL Neutrophils (%) (Auto) 54.2 % Lymphocytes (%) (Auto) 35.3 % Monocytes (%) (Auto) 6.2 % Eosinophils (%) (Auto) 3.2 % Basophils (%) (Auto) 0.7 % Neutrophils # (Auto) 5.47 K/uL Lymphocytes # (Auto) 3.55 K/uL Monocytes # (Auto) 0.62 K/uL Eosinophils # (Auto) 0.32 K/uL Basophils # (Auto) 0.07 K/uL RDW Standard Deviation 54.2 fL RDW Coefficient of Variation 18.8 % Immature Granulocyte % (Auto) 0.4 % Immature Granulocyte # (Auto) 0.04 K/uL Sodium Level 143 mmol/L Potassium Level 3.6 mmol/L Chloride Level 106 mmol/L Carbon Dioxide Level 29 mmol/L Anion Gap 8.0 mmol/L Blood Urea Nitrogen 16 mg/dl Creatinine 0.87 mg/dl Est Creatinine Clear Calc Drug Dose 81.9 ml/min Estimated GFR () 85.7 Estimated GFR (Non- 74.0 BUN/Creatinine Ratio 17.8 Random Glucose 85 mg/dl Calcium Level 8.5 mg/dl Assessment & Plan DYSPNEA ON EXERTION, FATIGUE LIKELY SYMPTOMATIC ANEMIA R/O GI BLEED IN THE SETTING OF COUMADIN USE - Hg decreased to 8 Iron 12 INR 2.4 - GI consulted - s/p 2 units pRBC Hg improved to 10 monitor needs Iron supplement - EGD: esophagitis recommend PPI BID x 2 weeks then daily appreciate GI consult - INR 3.0 INR daily LUQ PAIN - check CT abdomen PRN Flexeril added CHEST PAIN ACS RULED OUT - Risk factors: HTN, obesity - EKG: NSR rate 75. Negative initial Troponin.CT scan in ER today shows resolution previous PE, no new PE, no infiltrate. Stable T9 & T11 deformities. Pain reproducible with palpation. suspect musculoskeletal etiology - cardiac markers negative EKG non ischemic - likely musculoskeletal pain ASTHMA At this time do not feel asthma exacerbation. Pt just finished steroid taper on 04/02 and finished 10 day course doxy for reported cough x 1 morning. Pt given Solumedrol 125mg in ER. Will hold on further steroids at this time. She has home O2 to use sats <92% and with ambulation. hold antibiotics at this time, afebrile, no leukocytosis, no infiltrate on CXR or CT scan. - not in exacerbation CXR , CT chest clear HX PE CT scan shows resolving PE from previous in 02/2017. INR: 2.4 - inr 3.0 INR check tomorrow CHRONIC LOW BACK PAIN -hx T9 compression fracture 10/2016 and chronic pain, no worsening noted on CT chest -continue home pain meds - norco 5/325mg OBSTRUCTIVE SLEEP APNEA -CPAP at bedtime as per home settings ANXIETY/DEPRESSION -Celexa daily -Ativan 1mg po in am prn anxiety. ativan 2mg in evening prn anxiety DVT PROPHYLAXIS - INR 3.0 coumadin DISPOSITION anticipate d/c home when medically stable Current Inpatient Medications: Current Inpatient Medications Medications (Trade) Dose Ordered Sig/Kaye Route Start Time Stop Time Status Last Admin Dose Admin Ioversol (Optiray 320) 125 ml UD PRN IV 04/08/17 15:30 04/12/17 15:29 Acetaminophen (Tylenol Tab) 650 mg Q4H PRN PO 04/08/17 19:00 05/08/17 18:59 Ondansetron HCl (Zofran Inj) 4 mg Q6H PRN IV 04/08/17 19:00 05/08/17 18:59 Albuterol/ Ipratropium (Duoneb) 3 ml QIDR INH 04/08/17 20:00 05/08/17 19:59 04/10/17 19:06 3 ML Cholecalciferol (Vitamin D Tab) 1,000 inter.unit BID PO 04/08/17 21:00 05/08/17 20:59 04/10/17 11:49 1,000 INTER.UNIT Citalopram Hydrobromide (celeXA TAB) 40 mg QAM PO 04/09/17 09:00 05/09/17 08:59 04/10/17 11:49 40 MG Cyanocobalamin (Vitamin B-12 Tab) 1,000 mcg QAM PO 04/09/17 09:00 05/09/17 08:59 04/10/17 11:49 1,000 MCG Docusate Sodium (coLACE CAP) 200 mg HS PO 04/08/17 21:00 05/08/17 20:59 04/09/17 21:05 200 MG Furosemide (Lasix Tab) 40 mg Q2D PO 04/09/17 09:00 05/09/17 08:59 04/09/17 08:17 40 MG Lorazepam (Ativan Tab) 1 mg DAILY PRN PO 04/08/17 19:15 05/08/17 19:14 04/09/17 08:47 1 MG Lorazepam (Ativan Tab) 2 mg HS PRN PO 04/08/17 19:15 05/08/17 19:14 04/09/17 00:11 2 MG Potassium Chloride (Klor-Con M10) 10 meq Q2D PO 04/09/17 09:00 05/09/17 08:59 04/09/17 08:18 10 MEQ Warfarin Sodium (Coumadin Tab) 5 mg TuThSa@1600 PO 04/08/17 21:00 05/08/17 20:59 Future hold 04/10/17 16:25 5 MG Pantoprazole Sodium (Protonix Tab) 40 mg BID PO 04/08/17 21:00 05/08/17 20:59 04/10/17 11:49 40 MG Lidocaine (Lidoderm Patch 5%) 1 patch HS TD 04/08/17 21:00 05/08/17 20:59 04/09/17 21:07 1 PATCH Miscellaneous (Remove Lidoderm Patch) 1 ea DAILY@0900 N/A 04/09/17 09:00 05/09/17 08:59 04/10/17 08:45 1 EA Miscellaneous (Iv Fluids Completed) 1 ea PRN PRN N/A 04/08/17 20:00 04/08/18 19:59 Warfarin Sodium (Coumadin Tab) 7.5 mg SuMoWeFr@1600 PO 04/09/17 16:00 05/09/17 15:59 Future hold Heparin Sodium (Porcine) (Heparin 100 Unit/ml 5ml Flush) 5 ml PRN PRN IV 04/09/17 06:45 05/09/17 06:44 04/10/17 11:10 5 ML Polyethylene (Miralax Powder Packet) 17 gm DAILY PO 04/09/17 12:00 05/09/17 11:59 04/10/17 11:50 17 GM Acetaminophen/ Hydrocodone Bitart ([place] 5/325 Tab) pain not relieved by tylenol Q6H PRN PO 04/09/17 19:30 04/22/17 19:14 04/10/17 15:27 2 TAB Cyclobenzaprine HCl (Flexeril Tab) 5 mg TID PRN PO 04/10/17 17:15 05/10/17 17:14
[2017-04-10] MEDS: DOCUSATE SODIUM 100 MG CAP PO SCH (21:00)
[2017-04-10] MEDS: LIDODERM (LIDOCAINE) PATCH 5% TD SCH (21:44)
[2017-04-10] MEDS: LORAZEPAM 2 MG TAB PO PRN (21:50)
[2017-04-11] VITALS (9 sets, daily range): BP systolic 111–138; BP diastolic 74–85; PULSE 59–93; TEMP 36.5–36.9; O2SAT 94–97
[2017-04-11 06:02] LABS: BASO % 0.8 %; BASO ABS # 0.08 K/uL (0-0.2); COMPLETE YES; EOS % 4.5 %; HEMATOCRIT 35.2 % (37-47); IG% 0.5 %; MEAN CELL VOLUME 79.6 fL (80-100); MEAN CORPUSCULAR HGB CONC 30.1 g/dl (32-36); MEAN PLATELET VOLUME 10.5 fL (7.4-10.4); MONO % 6.8 %; NEUT % 50.4 %; PLATELET COUNT 219 K/uL (130-400); RED BLOOD COUNT 4.42 M/uL (4.2-5.4); WHITE BLOOD COUNT 10.28 K/uL (4.8-10.8)
[2017-04-11 06:08] LABS: INR 2.6 (0.9-1.1); PROTHROMBIN TIME (PATIENT) 28.8 SECONDS (9.0-12.0)
[2017-04-11 06:35] LABS: BUN/CREATININE RATIO 19.6 (10-20); CALCIUM 8.4 mg/dl (8.5-10.1); CREATININE 0.81 mg/dl (0.60-1.20); POTASSIUM 3.9 mmol/L (3.5-5.1)
[2017-04-11] MEDS: ALBUT/IPRATROP 3MG/0.5MG NEB 3 ML VIAL INH SCH ×4 (07:15→19:10)
[2017-04-11] MEDS: FUROSEMIDE 40 MG TAB PO SCH (08:20)
[2017-04-11] MEDS: CYANOCOBALAMIN 500 MCG TAB (VIT B-12) PO SCH (08:21)
[2017-04-11] MEDS: PANTOprazole SOD 40 MG TAB PO SCH ×2 (08:21→19:45)
[2017-04-11] MEDS: CHOLECALCIFEROL 1000 INTER.UNIT TAB PO SCH ×2 (08:21→19:44)
[2017-04-11] MEDS: CITALOPRAM 40 MG TAB PO SCH (08:21)
[2017-04-11] MEDS: POTASSIUM CHLORIDE 10 MEQ TABCR PO SCH (08:22)
[2017-04-11] MEDS: POLYETHYLENE (MIRALAX) 17 GM PACK PO SCH (08:22)
[2017-04-11] MEDS: HYDROCODONE/ACETAMOPHEN 5/325MG TAB PO PRN ×3 (08:28→23:52)
[2017-04-11] MEDS: WARFARIN SOD 7.5 MG TAB PO SCH (16:07)
--- NOTE | 2017-04-11 18:54 | Progress Note ---
Medicine Progress Note Date & Time of Visit: Apr 11, 2017 at 18:51. Subjective seen resting in bed, comfortable states she has some dyspnea on exertion today and some cough denies chest pain, abdominal pain no signs of GI bleeding no other symptoms Objective Last 8 Hrs Date Time Temp Pulse Resp B/P (MAP) Pulse Ox O2 Delivery O2 Flow Rate FiO2 04/11/17 16:00 Room Air 04/11/17 12:00 Room Air CPAP 04/11/17 11:50 36.9 93 18 115/74 (88) 96 Room Air 04/11/17 11:24 59 16 95 Room Air Physical Exam: General-oriented x 3, not in distress, speaks in sentences with no effort Eyes- EOMI, anicteric Neck- supple, no JVD Lungs- mild scattered wheezing bilaterally Heart- regular rhythm; no murmur, normal rate Abdomen- normal bowel sounds, soft, mild tenderness on the LUQ Extremities- no pretibial edema, no calf tenderness Neuro- alert, oriented x 3; no gross focal deficits Skin- warm & dry Laboratory Results: Last 24 Hours Test 04/11/17 05:51 04/11/17 05:52 Prothrombin Time 28.8 SECONDS Prothromb Time International Ratio 2.6 White Blood Count 10.28 K/uL Red Blood Count 4.42 M/uL Hemoglobin 10.6 g/dL Hematocrit 35.2 % Mean Corpuscular Volume 79.6 fL Mean Corpuscular Hemoglobin 24.0 pg Mean Corpuscular Hemoglobin Concent 30.1 g/dl Platelet Count 219 K/uL Mean Platelet Volume 10.5 fL Neutrophils (%) (Auto) 50.4 % Lymphocytes (%) (Auto) 37.0 % Monocytes (%) (Auto) 6.8 % Eosinophils (%) (Auto) 4.5 % Basophils (%) (Auto) 0.8 % Neutrophils # (Auto) 5.19 K/uL Lymphocytes # (Auto) 3.80 K/uL Monocytes # (Auto) 0.70 K/uL Eosinophils # (Auto) 0.46 K/uL Basophils # (Auto) 0.08 K/uL RDW Standard Deviation 56.6 fL RDW Coefficient of Variation 19.4 % Immature Granulocyte % (Auto) 0.5 % Immature Granulocyte # (Auto) 0.05 K/uL Sodium Level 139 mmol/L Potassium Level 3.9 mmol/L Chloride Level 104 mmol/L Carbon Dioxide Level 31 mmol/L Anion Gap 4.0 mmol/L Blood Urea Nitrogen 16 mg/dl Creatinine 0.81 mg/dl Est Creatinine Clear Calc Drug Dose 88.0 ml/min Estimated GFR () 93.4 Estimated GFR (Non- 80.6 BUN/Creatinine Ratio 19.6 Random Glucose 89 mg/dl Calcium Level 8.4 mg/dl Assessment & Plan DYSPNEA ON EXERTION, FATIGUE LIKELY SYMPTOMATIC ANEMIA R/O GI BLEED IN THE SETTING OF COUMADIN USE - Hg decreased to 8 Iron 12 INR 2.4 - GI consulted - s/p 2 units pRBC Hg improved to 10 monitor needs Iron supplement - EGD: esophagitis recommend PPI BID x 2 weeks then daily appreciate GI consult - INR 2.4 continue coumadin INR daily LUQ PAIN - check CT abdomen:IMPRESSION: 1. No acute intra-abdominal or intrapelvic abnormality identified. 2. Prior cholecystectomy, hysterectomy and partial sigmoid colon resection. 3. Colonic diverticulosis without diverticulitis. 4. Cystic lesion of the left adnexum, 2.5 x 2.2 cm is unchanged from comparison study. - PRN Flexeril added - improving POSSIBLE ASTHMA EXACERBATION, MILD - start Prednisone 40mg po daily cxr clear CHEST PAIN ACS RULED OUT - Risk factors: HTN, obesity - EKG: NSR rate 75. Negative initial Troponin.CT scan in ER today shows resolution previous PE, no new PE, no infiltrate. Stable T9 & T11 deformities. Pain reproducible with palpation. suspect musculoskeletal etiology - cardiac markers negative EKG non ischemic - likely musculoskeletal pain HX PE CT scan shows resolving PE from previous in 02/2017. INR: 2.4 - inr 2.4 continue coumadin CHRONIC LOW BACK PAIN -hx T9 compression fracture 10/2016 and chronic pain, no worsening noted on CT chest -continue home pain meds - norco 5/325mg OBSTRUCTIVE SLEEP APNEA -CPAP at bedtime as per home settings ANXIETY/DEPRESSION -Celexa daily -Ativan 1mg po in am prn anxiety. ativan 2mg in evening prn anxiety DVT PROPHYLAXIS - INR 2.4 coumadin DISPOSITION anticipate d/c home when medically stable Current Inpatient Medications: Current Inpatient Medications Medications (Trade) Dose Ordered Sig/Kaye Route Start Time Stop Time Status Last Admin Dose Admin Ioversol (Optiray 320) 125 ml UD PRN IV 04/08/17 15:30 04/12/17 15:29 Acetaminophen (Tylenol Tab) 650 mg Q4H PRN PO 04/08/17 19:00 05/08/17 18:59 Ondansetron HCl (Zofran Inj) 4 mg Q6H PRN IV 04/08/17 19:00 05/08/17 18:59 Albuterol/ Ipratropium (Duoneb) 3 ml QIDR INH 04/08/17 20:00 05/08/17 19:59 04/11/17 11:22 3 ML Cholecalciferol (Vitamin D Tab) 1,000 inter.unit BID PO 04/08/17 21:00 05/08/17 20:59 04/11/17 08:21 1,000 INTER.UNIT Citalopram Hydrobromide (celeXA TAB) 40 mg QAM PO 04/09/17 09:00 05/09/17 08:59 04/11/17 08:21 40 MG Cyanocobalamin (Vitamin B-12 Tab) 1,000 mcg QAM PO 04/09/17 09:00 05/09/17 08:59 04/11/17 08:21 1,000 MCG Docusate Sodium (coLACE CAP) 200 mg HS PO 04/08/17 21:00 05/08/17 20:59 04/09/17 21:05 200 MG Furosemide (Lasix Tab) 40 mg Q2D PO 04/09/17 09:00 05/09/17 08:59 04/11/17 08:20 40 MG Lorazepam (Ativan Tab) 1 mg DAILY PRN PO 04/08/17 19:15 05/08/17 19:14 04/09/17 08:47 1 MG Lorazepam (Ativan Tab) 2 mg HS PRN PO 04/08/17 19:15 05/08/17 19:14 04/10/17 21:50 2 MG Potassium Chloride (Klor-Con M10) 10 meq Q2D PO 04/09/17 09:00 05/09/17 08:59 04/11/17 08:22 10 MEQ Warfarin Sodium (Coumadin Tab) 5 mg TuThSa@1600 PO 04/08/17 21:00 05/08/17 20:59 Future hold 04/10/17 16:25 5 MG Pantoprazole Sodium (Protonix Tab) 40 mg BID PO 04/08/17 21:00 05/08/17 20:59 04/11/17 08:21 40 MG Lidocaine (Lidoderm Patch 5%) 1 patch HS TD 04/08/17 21:00 05/08/17 20:59 04/10/17 21:44 1 PATCH Miscellaneous (Remove Lidoderm Patch) 1 ea DAILY@0900 N/A 04/09/17 09:00 05/09/17 08:59 04/11/17 08:20 1 EA Miscellaneous (Iv Fluids Completed) 1 ea PRN PRN N/A 04/08/17 20:00 04/08/18 19:59 Warfarin Sodium (Coumadin Tab) 7.5 mg SuMoWeFr@1600 PO 04/09/17 16:00 05/09/17 15:59 Future hold 04/11/17 16:07 7.5 MG Heparin Sodium (Porcine) (Heparin 100 Unit/ml 5ml Flush) 5 ml PRN PRN IV 04/09/17 06:45 05/09/17 06:44 04/11/17 05:49 5 ML Polyethylene (Miralax Powder Packet) 17 gm DAILY PO 04/09/17 12:00 05/09/17 11:59 04/10/17 11:50 17 GM Acetaminophen/ Hydrocodone Bitart ([place] 5/325 Tab) pain not relieved by tylenol Q6H PRN PO 04/09/17 19:30 04/22/17 19:14 04/11/17 14:56 2 TAB Cyclobenzaprine HCl (Flexeril Tab) 5 mg TID PRN PO 04/10/17 17:15 05/10/17 17:14 Prednisone (PredniSONE TAB) 40 mg DAILY PO 04/12/17 09:00 05/12/17 08:59
[2017-04-11] MEDS: CYCLOBENZAPRINE HCL 5 MG TAB PO PRN (19:03)
[2017-04-11] MEDS ORDERED: ALBUT/IPRATROP 3MG/0.5MG NEB 3 ML VIAL INH PRN (19:15)
[2017-04-11] MEDS: DOCUSATE SODIUM 100 MG CAP PO SCH (19:45)
[2017-04-11] MEDS: LIDODERM (LIDOCAINE) PATCH 5% TD SCH (19:48)
--- NOTE | 2017-04-11 19:55 | DIAGNOSTIC IMAGING REPORT ---
SINGLE VIEW CHEST CLINICAL HISTORY: Wheezing. FINDINGS: An AP, portable, upright chest radiograph is compared to chest x-ray and chest CT dated 04/08/2017. The examination is degraded by portable technique and patient rotation. A left subclavian central venous infusion port is unchanged in position. The heart is top normal for projection and there is atherosclerotic calcification of the thoracic aorta. There is elevation of the right hemidiaphragm with mild bibasilar atelectasis. No airspace consolidation, large pleural effusion, or pneumothorax is seen. The skeletal structures are osteopenic. The bony thorax is grossly intact. Cholecystectomy clips are seen in the right upper quadrant. IMPRESSION: No acute cardiopulmonary abnormality. Electronically signed by: Nathanael Rutherford M.D. 04/11/2017 7:54 PM Dictated Date/Time: 04/11/2017 7:52 PM
[2017-04-12 00:06] VITALS: BP 152/79; PULSE 52; TEMP 36.9; O2SAT 98
[2017-04-12 06:12] LABS: BASO % 0.2 %; BASO ABS # 0.02 K/uL (0-0.2); COMPLETE YES; EOS % 0.1 %; HEMATOCRIT 40.3 % (37-47); IG% 0.3 %; LYMPH % 8.6 %; LYMPH ABS # 0.89 K/uL (1.2-3.4); MEAN CELL VOLUME 78.6 fL (80-100); MEAN CORPUSCULAR HEMOGLOBIN 23.8 pg (25-34); MEAN CORPUSCULAR HGB CONC 30.3 g/dl (32-36); MEAN PLATELET VOLUME 10.9 fL (7.4-10.4); MONO % 1.7 %; NEUT % 89.1 %; PLATELET COUNT 286 K/uL (130-400); RED BLOOD COUNT 5.13 M/uL (4.2-5.4); WHITE BLOOD COUNT 10.31 K/uL (4.8-10.8)
[2017-04-12 06:21] LABS: INR 2.7 (0.9-1.1); PROTHROMBIN TIME (PATIENT) 30.4 SECONDS (9.0-12.0)
[2017-04-12 06:56] LABS: BUN/CREATININE RATIO 13.2 (10-20); CALCIUM 8.7 mg/dl (8.5-10.1); CREATININE 0.94 mg/dl (0.60-1.20); POTASSIUM 4.5 mmol/L (3.5-5.1)
[2017-04-12] MEDS: ALBUT/IPRATROP 3MG/0.5MG NEB 3 ML VIAL INH SCH ×5 (07:05→19:48)
[2017-04-12 08:21] VITALS: BP 112/71; PULSE 61; TEMP 36.4; O2SAT 93
[2017-04-12] MEDS: POLYETHYLENE (MIRALAX) 17 GM PACK PO SCH ×2 (09:00→09:32)
[2017-04-12] MEDS: CYANOCOBALAMIN 500 MCG TAB (VIT B-12) PO SCH (09:31)
[2017-04-12] MEDS: PANTOprazole SOD 40 MG TAB PO SCH ×2 (09:31→20:50)
[2017-04-12] MEDS: CITALOPRAM 40 MG TAB PO SCH (09:31)
[2017-04-12] MEDS: CHOLECALCIFEROL 1000 INTER.UNIT TAB PO SCH ×2 (09:31→20:49)
[2017-04-12] MEDS: DOCUSATE SODIUM 100 MG CAP PO SCH ×2 (09:31→20:49)
[2017-04-12] MEDS: CYCLOBENZAPRINE HCL 5 MG TAB PO PRN (10:35)
[2017-04-12 11:03] VITALS: PULSE 64; O2SAT 97
[2017-04-12] MEDS: HYDROCODONE/ACETAMOPHEN 5/325MG TAB PO PRN ×2 (14:48→20:52)
[2017-04-12 15:11] VITALS: PULSE 65; O2SAT 95
[2017-04-12 16:05] VITALS: BP 123/60; PULSE 61; TEMP 36.9; O2SAT 95
[2017-04-12] MEDS: WARFARIN SOD 5 MG TAB PO SCH (16:41)
--- NOTE | 2017-04-12 17:43 | Progress Note ---
Medicine Progress Note Date & Time of Visit: Apr 12, 2017 at 17:39. Subjective patient seen resting in bed, comfortable at bedside states her breathing is improving today, no cough still has left sided pain/tenderness on the left anterolateral rib area, worse with movement denies other symptoms Objective Last 8 Hrs Date Time Temp Pulse Resp B/P (MAP) Pulse Ox O2 Delivery O2 Flow Rate FiO2 04/12/17 16:36 CPAP 04/12/17 16:05 36.9 61 16 123/60 (81) 95 Room Air 04/12/17 15:11 65 16 95 Room Air 04/12/17 11:03 64 16 97 Room Air Physical Exam: General-oriented x 3, not in distress, speaks in sentences with no effort Eyes- anicteric Neck- no JVD Lungs- mild scattered wheezing bilaterally- less than yesterday Heart- regular rhythm; no murmur, normal rate Abdomen- normal bowel sounds, soft, mild tenderness on the LUQ Extremities- no pretibial edema, no calf tenderness Neuro- alert, oriented x 3; no gross focal deficits Skin- warm & dry Laboratory Results: Last 24 Hours Test 04/12/17 05:48 White Blood Count 10.31 K/uL Red Blood Count 5.13 M/uL Hemoglobin 12.2 g/dL Hematocrit 40.3 % Mean Corpuscular Volume 78.6 fL Mean Corpuscular Hemoglobin 23.8 pg Mean Corpuscular Hemoglobin Concent 30.3 g/dl Platelet Count 286 K/uL Mean Platelet Volume 10.9 fL Neutrophils (%) (Auto) 89.1 % Lymphocytes (%) (Auto) 8.6 % Monocytes (%) (Auto) 1.7 % Eosinophils (%) (Auto) 0.1 % Basophils (%) (Auto) 0.2 % Neutrophils # (Auto) 9.18 K/uL Lymphocytes # (Auto) 0.89 K/uL Monocytes # (Auto) 0.18 K/uL Eosinophils # (Auto) 0.01 K/uL Basophils # (Auto) 0.02 K/uL RDW Standard Deviation 55.4 fL RDW Coefficient of Variation 19.2 % Immature Granulocyte % (Auto) 0.3 % Immature Granulocyte # (Auto) 0.03 K/uL Prothrombin Time 30.4 SECONDS Prothromb Time International Ratio 2.7 Sodium Level 137 mmol/L Potassium Level 4.5 mmol/L Chloride Level 101 mmol/L Carbon Dioxide Level 30 mmol/L Anion Gap 6.0 mmol/L Blood Urea Nitrogen 12 mg/dl Creatinine 0.94 mg/dl Est Creatinine Clear Calc Drug Dose 76.1 ml/min Estimated GFR () 78.1 Estimated GFR (Non- 67.3 BUN/Creatinine Ratio 13.2 Random Glucose 144 mg/dl Calcium Level 8.7 mg/dl Assessment & Plan DYSPNEA ON EXERTION, FATIGUE LIKELY SYMPTOMATIC ANEMIA R/O GI BLEED IN THE SETTING OF COUMADIN USE - Hg decreased to 8 Iron 12 - GI consulted - s/p 2 units pRBC Hg improved to 10- remains stable needs Iron supplement - EGD: esophagitis recommend PPI BID x 2 weeks then daily appreciate GI consult - INR 2.6 continue coumadin INR daily LUQ PAIN - CT abdomen:IMPRESSION: 1. No acute intra-abdominal or intrapelvic abnormality identified. 2. Prior cholecystectomy, hysterectomy and partial sigmoid colon resection. 3. Colonic diverticulosis without diverticulitis. 4. Cystic lesion of the left adnexum, 2.5 x 2.2 cm is unchanged from comparison study. - PRN Flexeril added - improving POSSIBLE ASTHMA EXACERBATION, MILD - Prednisone 40mg po daily cxr clear - improving CHEST PAIN ACS RULED OUT - Risk factors: HTN, obesity - EKG: NSR rate 75. Negative initial Troponin.CT scan in ER today shows resolution previous PE, no new PE, no infiltrate. Stable T9 & T11 deformities. Pain reproducible with palpation. suspect musculoskeletal etiology - cardiac markers negative EKG non ischemic - likely musculoskeletal pain HX PE CT scan shows resolving PE from previous in 02/2017. INR: 2.4 - inr 2.6 continue coumadin CHRONIC LOW BACK PAIN -hx T9 compression fracture 10/2016 and chronic pain, no worsening noted on CT chest -continue home pain meds - norco 5/325mg OBSTRUCTIVE SLEEP APNEA -CPAP at bedtime as per home settings ANXIETY/DEPRESSION -Celexa daily -Ativan 1mg po in am prn anxiety. ativan 2mg in evening prn anxiety DVT PROPHYLAXIS - INR 2.6 coumadin DISPOSITION anticipate d/c home when medically stable Current Inpatient Medications: Current Inpatient Medications Medications (Trade) Dose Ordered Sig/Kaye Route Start Time Stop Time Status Last Admin Dose Admin Acetaminophen (Tylenol Tab) 650 mg Q4H PRN PO 04/08/17 19:00 05/08/17 18:59 Ondansetron HCl (Zofran Inj) 4 mg Q6H PRN IV 04/08/17 19:00 05/08/17 18:59 Albuterol/ Ipratropium (Duoneb) 3 ml QIDR INH 04/08/17 20:00 05/08/17 19:59 04/12/17 15:09 3 ML Cholecalciferol (Vitamin D Tab) 1,000 inter.unit BID PO 04/08/17 21:00 05/08/17 20:59 04/12/17 09:31 1,000 INTER.UNIT Citalopram Hydrobromide (celeXA TAB) 40 mg QAM PO 04/09/17 09:00 05/09/17 08:59 04/12/17 09:31 40 MG Cyanocobalamin (Vitamin B-12 Tab) 1,000 mcg QAM PO 04/09/17 09:00 05/09/17 08:59 04/12/17 09:31 1,000 MCG Docusate Sodium (coLACE CAP) 200 mg HS PO 04/08/17 21:00 05/08/17 20:59 04/12/17 09:31 200 MG Furosemide (Lasix Tab) 40 mg Q2D PO 04/09/17 09:00 05/09/17 08:59 04/11/17 08:20 40 MG Lorazepam (Ativan Tab) 1 mg DAILY PRN PO 04/08/17 19:15 05/08/17 19:14 04/09/17 08:47 1 MG Lorazepam (Ativan Tab) 2 mg HS PRN PO 04/08/17 19:15 05/08/17 19:14 04/10/17 21:50 2 MG Potassium Chloride (Klor-Con M10) 10 meq Q2D PO 04/09/17 09:00 05/09/17 08:59 04/11/17 08:22 10 MEQ Warfarin Sodium (Coumadin Tab) 5 mg TuThSa@1600 PO 04/08/17 21:00 05/08/17 20:59 Future hold 04/12/17 16:41 5 MG Pantoprazole Sodium (Protonix Tab) 40 mg BID PO 04/08/17 21:00 05/08/17 20:59 04/12/17 09:31 40 MG Lidocaine (Lidoderm Patch 5%) 1 patch HS TD 04/08/17 21:00 05/08/17 20:59 04/11/17 19:48 1 PATCH Miscellaneous (Remove Lidoderm Patch) 1 ea DAILY@0900 N/A 04/09/17 09:00 05/09/17 08:59 04/12/17 09:47 1 EA Miscellaneous (Iv Fluids Completed) 1 ea PRN PRN N/A 04/08/17 20:00 04/08/18 19:59 Warfarin Sodium (Coumadin Tab) 7.5 mg SuMoWeFr@1600 PO 04/09/17 16:00 05/09/17 15:59 Future hold 04/11/17 16:07 7.5 MG Heparin Sodium (Porcine) (Heparin 100 Unit/ml 5ml Flush) 5 ml PRN PRN IV 04/09/17 06:45 05/09/17 06:44 04/12/17 05:48 5 ML Polyethylene (Miralax Powder Packet) 17 gm DAILY PO 04/09/17 12:00 05/09/17 11:59 04/12/17 09:32 17 GM Acetaminophen/ Hydrocodone Bitart ([place] 5/325 Tab) pain not relieved by tylenol Q6H PRN PO 04/09/17 19:30 04/22/17 19:14 04/12/17 14:48 2 TAB Cyclobenzaprine HCl (Flexeril Tab) 5 mg TID PRN PO 04/10/17 17:15 05/10/17 17:14 04/12/17 10:35 5 MG Prednisone (PredniSONE TAB) 40 mg DAILY PO 04/12/17 09:00 05/12/17 08:59 04/12/17 09:32 40 MG Albuterol/ Ipratropium (Duoneb) 3 ml Q4R PRN INH 04/11/17 19:15 05/11/17 19:14
[2017-04-12] MEDS ORDERED: MoRPHine SULFATE 4 MG/ML 1 ML CARP\\VIAL ONE (18:24)
[2017-04-12] MEDS: LIDODERM (LIDOCAINE) PATCH 5% TD SCH (21:15)
[2017-04-12 22:59] VITALS: BP 131/79; PULSE 68; TEMP 36.8; O2SAT 94
[2017-04-12] MEDS: MoRPHine SULFATE 4 MG/ML 1 ML CARP\\VIAL IV PRN (23:26)
[2017-04-13] MEDS: MoRPHine SULFATE 4 MG/ML 1 ML CARP\\VIAL IV PRN ×3 (03:50→18:26)
[2017-04-13 06:41] LABS: BASO % 0.3 %; BASO ABS # 0.04 K/uL (0-0.2); COMPLETE YES; EOS % 1.9 %; HEMATOCRIT 37.2 % (37-47); IG% 0.3 %; LYMPH % 24.6 %; LYMPH ABS # 2.92 K/uL (1.2-3.4); MEAN CELL VOLUME 79.3 fL (80-100); MEAN CORPUSCULAR HEMOGLOBIN 23.2 pg (25-34); MEAN CORPUSCULAR HGB CONC 29.3 g/dl (32-36); MEAN PLATELET VOLUME 11.1 fL (7.4-10.4); MONO % 7.1 %; NEUT % 65.8 %; PLATELET COUNT 286 K/uL (130-400); RED BLOOD COUNT 4.69 M/uL (4.2-5.4); WHITE BLOOD COUNT 11.85 K/uL (4.8-10.8)
[2017-04-13 06:45] LABS: PROTHROMBIN TIME (PATIENT) 33.9 SECONDS (9.0-12.0)
[2017-04-13] MEDS: ALBUT/IPRATROP 3MG/0.5MG NEB 3 ML VIAL INH SCH ×4 (06:59→19:13)
[2017-04-13 07:19] LABS: BUN/CREATININE RATIO 22.3 (10-20); CREATININE 0.8 mg/dl (0.60-1.20); POTASSIUM 3.7 mmol/L (3.5-5.1)
[2017-04-13] MEDS: CITALOPRAM 40 MG TAB PO SCH (07:53)
[2017-04-13] MEDS: CHOLECALCIFEROL 1000 INTER.UNIT TAB PO SCH ×2 (07:53→20:25)
[2017-04-13] MEDS: HYDROCODONE/ACETAMOPHEN 5/325MG TAB PO PRN ×2 (07:53→15:31)
[2017-04-13] MEDS: CYANOCOBALAMIN 500 MCG TAB (VIT B-12) PO SCH (07:53)
[2017-04-13] MEDS: PANTOprazole SOD 40 MG TAB PO SCH ×2 (07:54→20:25)
[2017-04-13] MEDS: DOCUSATE SODIUM 100 MG CAP PO SCH (07:54)
[2017-04-13] MEDS: FUROSEMIDE 40 MG TAB PO SCH (07:54)
[2017-04-13] MEDS: POTASSIUM CHLORIDE 10 MEQ TABCR PO SCH (07:55)
[2017-04-13] MEDS: POLYETHYLENE (MIRALAX) 17 GM PACK PO SCH (07:55)
[2017-04-13 07:58] VITALS: BP 154/83; PULSE 67; TEMP 36.4; O2SAT 98
[2017-04-13 15:30] VITALS: BP 126/79; PULSE 55; TEMP 36.7; O2SAT 94
[2017-04-13] MEDS: WARFARIN SOD 7.5 MG TAB PO SCH (15:30)
--- NOTE | 2017-04-13 18:03 | DIAGNOSTIC IMAGING REPORT ---
CT SCAN OF THE ABDOMEN AND PELVIS WITHOUT IV CONTRAST CLINICAL HISTORY: Left upper quadrant abdominal pain. COMPARISON STUDY: Abdominal CT dated 04/10/2017. TECHNIQUE: CT scan of the abdomen and pelvis is performed from the lung bases to the proximal femora. Images are reviewed in the axial, sagittal, and coronal planes. IV contrast was not administered for this examination as per the referring clinician. Note that the examination was performed in significantly suboptimal fashion without oral and IV contrast. A dose lowering technique was utilized adhering to the principles of ALARA. CT DOSE: 1165.52 mGy.cm FINDINGS: Lung bases: The heart is normal in size and without pericardial effusion. The coronary arteries are densely calcified. A fat-containing Bochdalek hernia is present at both lung bases. No airspace consolidation or pleural effusion is identified. There is a tiny hiatal hernia. Liver: The unenhanced liver is normal in size, contour, and attenuation. There is minimal central intrahepatic biliary ductal dilatation. Gallbladder: Surgically absent noting clips in the gallbladder fossa. Spleen: Normal in size and attenuation. Pancreas: The unenhanced pancreas is atrophic and grossly unremarkable. Adrenal glands: Unremarkable. Kidneys: The unenhanced kidneys are atrophic and without hydronephrosis. There are no renal calculi identified. There is no evidence of contour deforming renal mass lesion. Abdominal vasculature: There is advanced atherosclerotic calcification and ectasia of the abdominal aorta. Bowel: There are postoperative changes from sigmoid colon resection with colocolonic anastomosis. No bowel obstruction is seen. There is moderate diverticulosis of the remaining colon without CT evidence of acute diverticulitis. The appendix is not identified and reported surgically absent. Peritoneum: There is no intraperitoneal free air or abdominal ascites. A midline surgical scar is noted. There is a small fat-containing umbilical hernia. Lymphadenopathy: None. Pelvic viscera: The bladder is normal as visualized. The uterus is surgically absent. A 2.9 cm cystic focus is noted in the left ovary on image #[id number]. This is unchanged from previous. Skeletal structures: The skeletal structures are osteopenic. There are compression deformities of T9 and T11. No lytic or blastic lesions are seen. IMPRESSION: 1. Suboptimal examination without oral and IV contrast. 2. There are no acute infectious or inflammatory findings in the abdomen or pelvis, and there has been no significant change from study performed 3 days previously. 3. There are postoperative changes from sigmoid colon resection with colocolonic anastomosis. No bowel obstruction is seen. 4. There is moderate diverticulosis of the remaining colon without CT evidence of acute diverticulitis. 5. Additional findings as above. Electronically signed by: Nathanael Rutherford M.D. 04/13/2017 6:01 PM Dictated Date/Time: 04/13/2017 5:54 PM
[2017-04-13] MEDS ORDERED: NURSING VERBAL MED ORDER ONE (18:30)
--- NOTE | 2017-04-13 18:46 | Progress Note ---
Medicine Progress Note Date & Time of Visit: Apr 13, 2017 at 18:39. Subjective patient seen resting in bed, not in distress still reports LUQ pain, no problems with BMs, no fever/chills breathing improving denies other symptoms Objective Last 8 Hrs Date Time Temp Pulse Resp B/P (MAP) Pulse Ox O2 Delivery O2 Flow Rate FiO2 04/13/17 16:00 Room Air CPAP 04/13/17 15:30 36.7 55 18 126/79 (95) 94 Room Air Physical Exam: General-oriented x 3, not in distress, speaks in sentences with no effort Eyes- anicteric Neck- no JVD Lungs-faint scattered wheezing bilaterally- improving Heart- regular rhythm; no murmur, normal rate Abdomen- normal bowel sounds, soft, mild tenderness on the LUQ Extremities- no pretibial edema, no calf tenderness Neuro- alert, oriented x 3; no gross focal deficits Skin- warm & dry Laboratory Results: Last 24 Hours Test 04/13/17 05:57 White Blood Count 11.85 K/uL Red Blood Count 4.69 M/uL Hemoglobin 10.9 g/dL Hematocrit 37.2 % Mean Corpuscular Volume 79.3 fL Mean Corpuscular Hemoglobin 23.2 pg Mean Corpuscular Hemoglobin Concent 29.3 g/dl Platelet Count 286 K/uL Mean Platelet Volume 11.1 fL Neutrophils (%) (Auto) 65.8 % Lymphocytes (%) (Auto) 24.6 % Monocytes (%) (Auto) 7.1 % Eosinophils (%) (Auto) 1.9 % Basophils (%) (Auto) 0.3 % Neutrophils # (Auto) 7.80 K/uL Lymphocytes # (Auto) 2.92 K/uL Monocytes # (Auto) 0.84 K/uL Eosinophils # (Auto) 0.22 K/uL Basophils # (Auto) 0.04 K/uL RDW Standard Deviation 57.0 fL RDW Coefficient of Variation 19.8 % Immature Granulocyte % (Auto) 0.3 % Immature Granulocyte # (Auto) 0.03 K/uL Prothrombin Time 33.9 SECONDS Prothromb Time International Ratio 3.0 Sodium Level 137 mmol/L Potassium Level 3.7 mmol/L Chloride Level 100 mmol/L Carbon Dioxide Level 32 mmol/L Anion Gap 5.0 mmol/L Blood Urea Nitrogen 18 mg/dl Creatinine 0.80 mg/dl Est Creatinine Clear Calc Drug Dose 89.4 ml/min Estimated GFR () 94.9 Estimated GFR (Non- 81.8 BUN/Creatinine Ratio 22.3 Random Glucose 94 mg/dl Calcium Level 9.0 mg/dl Assessment & Plan DYSPNEA ON EXERTION, FATIGUE LIKELY SYMPTOMATIC ANEMIA R/O GI BLEED IN THE SETTING OF COUMADIN USE - Hg decreased to 8 Iron 12 - GI consulted - s/p 2 units pRBC Hg improved to 10- remains stable needs Iron supplement - EGD: esophagitis recommend PPI BID x 2 weeks then daily appreciate GI consult - INR 3.0 continue coumadin INR daily LUQ PAIN - CT abdomen:IMPRESSION: 1. No acute intra-abdominal or intrapelvic abnormality identified. 2. Prior cholecystectomy, hysterectomy and partial sigmoid colon resection. 3. Colonic diverticulosis without diverticulitis. 4. Cystic lesion of the left adnexum, 2.5 x 2.2 cm is unchanged from comparison study. - repeat CT abdomen: no signs of diverticulitis - will re-consult GI POSSIBLE ASTHMA EXACERBATION, MILD - Prednisone 40mg po daily cxr clear - improving CHEST PAIN ACS RULED OUT - Risk factors: HTN, obesity - EKG: NSR rate 75. Negative initial Troponin.CT scan in ER today shows resolution previous PE, no new PE, no infiltrate. Stable T9 & T11 deformities. Pain reproducible with palpation. suspect musculoskeletal etiology - cardiac markers negative EKG non ischemic - likely musculoskeletal pain HX PE CT scan shows resolving PE from previous in 02/2017. INR: 2.4 - inr 3.0 continue coumadin CHRONIC LOW BACK PAIN -hx T9 compression fracture 10/2016 and chronic pain, no worsening noted on CT chest -continue home pain meds - norco 5/325mg OBSTRUCTIVE SLEEP APNEA -CPAP at bedtime as per home settings ANXIETY/DEPRESSION -Celexa daily -Ativan 1mg po in am prn anxiety. ativan 2mg in evening prn anxiety DVT PROPHYLAXIS - INR 3.0 coumadin DISPOSITION anticipate d/c home when medically stable Current Inpatient Medications: Current Inpatient Medications Medications (Trade) Dose Ordered Sig/Kaye Route Start Time Stop Time Status Last Admin Dose Admin Acetaminophen (Tylenol Tab) 650 mg Q4H PRN PO 04/08/17 19:00 05/08/17 18:59 Ondansetron HCl (Zofran Inj) 4 mg Q6H PRN IV 04/08/17 19:00 05/08/17 18:59 Albuterol/ Ipratropium (Duoneb) 3 ml QIDR INH 04/08/17 20:00 05/08/17 19:59 04/12/17 15:09 3 ML Cholecalciferol (Vitamin D Tab) 1,000 inter.unit BID PO 04/08/17 21:00 05/08/17 20:59 04/13/17 07:53 1,000 INTER.UNIT Citalopram Hydrobromide (celeXA TAB) 40 mg QAM PO 04/09/17 09:00 05/09/17 08:59 04/13/17 07:53 40 MG Cyanocobalamin (Vitamin B-12 Tab) 1,000 mcg QAM PO 04/09/17 09:00 05/09/17 08:59 04/13/17 07:53 1,000 MCG Docusate Sodium (coLACE CAP) 200 mg HS PO 04/08/17 21:00 05/08/17 20:59 04/13/17 07:54 200 MG Furosemide (Lasix Tab) 40 mg Q2D PO 04/09/17 09:00 05/09/17 08:59 04/13/17 07:54 40 MG Lorazepam (Ativan Tab) 1 mg DAILY PRN PO 04/08/17 19:15 05/08/17 19:14 04/09/17 08:47 1 MG Lorazepam (Ativan Tab) 2 mg HS PRN PO 04/08/17 19:15 05/08/17 19:14 04/10/17 21:50 2 MG Potassium Chloride (Klor-Con M10) 10 meq Q2D PO 04/09/17 09:00 05/09/17 08:59 04/13/17 07:55 10 MEQ Warfarin Sodium (Coumadin Tab) 5 mg TuThSa@1600 PO 04/08/17 21:00 05/08/17 20:59 Future hold 04/12/17 16:41 5 MG Pantoprazole Sodium (Protonix Tab) 40 mg BID PO 04/08/17 21:00 05/08/17 20:59 04/13/17 07:54 40 MG Lidocaine (Lidoderm Patch 5%) 1 patch HS TD 04/08/17 21:00 05/08/17 20:59 12/2/17 21:15 1 PATCH Miscellaneous (Remove Lidoderm Patch) 1 ea DAILY@0900 N/A 04/09/17 09:00 05/09/17 08:59 04/13/17 07:55 1 EA Miscellaneous (Iv Fluids Completed) 1 ea PRN PRN N/A 04/08/17 20:00 04/08/18 19:59 Warfarin Sodium (Coumadin Tab) 7.5 mg SuMoWeFr@1600 PO 04/09/17 16:00 05/09/17 15:59 Future hold 04/13/17 15:30 7.5 MG Heparin Sodium (Porcine) (Heparin 100 Unit/ml 5ml Flush) 5 ml PRN PRN IV 04/09/17 06:45 05/09/17 06:44 04/13/17 11:29 5 ML Polyethylene (Miralax Powder Packet) 17 gm DAILY PO 04/09/17 12:00 05/09/17 11:59 04/10/17 11:50 17 GM Acetaminophen/ Hydrocodone Bitart ([place] 5/325 Tab) pain not relieved by tylenol Q6H PRN PO 04/09/17 19:30 04/22/17 19:14 04/13/17 15:31 2 TAB Cyclobenzaprine HCl (Flexeril Tab) 5 mg TID PRN PO 04/10/17 17:15 05/10/17 17:14 04/12/17 10:35 5 MG Prednisone (PredniSONE TAB) 40 mg DAILY PO 04/12/17 09:00 05/12/17 08:59 04/13/17 07:53 40 MG Albuterol/ Ipratropium (Duoneb) 3 ml Q4R PRN INH 04/11/17 19:15 05/11/17 19:14 Morphine Sulfate (MoRPHine SULFATE INJ) 4 mg Q8H PRN IV 04/13/17 18:45 04/26/17 18:14
[2017-04-13 20:00] VITALS: O2SAT 94
[2017-04-13] MEDS: LIDODERM (LIDOCAINE) PATCH 5% TD SCH (20:25)
[2017-04-13 23:56] VITALS: BP 117/65; PULSE 55; TEMP 36.5; O2SAT 95
[2017-04-14] VITALS: O2SAT 94
[2017-04-14] MEDS: LORAZEPAM 1 MG TAB PO PRN (00:01)
[2017-04-14] MEDS: HYDROCODONE/ACETAMOPHEN 5/325MG TAB PO PRN ×4 (00:01→23:30)
[2017-04-14 05:39] LABS: BASO % 0.4 %; BASO ABS # 0.05 K/uL (0-0.2); EOS % 1.6 %; HEMATOCRIT 36.5 % (37-47); IG% 0.2 %; LYMPH % 29.7 %; LYMPH ABS # 3.62 K/uL (1.2-3.4); MEAN CELL VOLUME 79.7 fL (80-100); MEAN CORPUSCULAR HEMOGLOBIN 23.6 pg (25-34); MEAN CORPUSCULAR HGB CONC 29.6 g/dl (32-36); MEAN PLATELET VOLUME 10.1 fL (7.4-10.4); MONO % 6.2 %; NEUT % 61.9 %; PLATELET COUNT 250 K/uL (130-400); RED BLOOD COUNT 4.58 M/uL (4.2-5.4)
[2017-04-14 06:14] LABS: BUN/CREATININE RATIO 21.9 (10-20); CALCIUM 8.3 mg/dl (8.5-10.1); CREATININE 0.85 mg/dl (0.60-1.20); POTASSIUM 3.6 mmol/L (3.5-5.1)
[2017-04-14 06:34] LABS: ANISOCYTOSIS PRESENT; COMPLETE YES; HYPOCHROMIA PRESENT; OVALOCYTES 1+; POLYCHROMASIA 1+
[2017-04-14] MEDS: ALBUT/IPRATROP 3MG/0.5MG NEB 3 ML VIAL INH SCH ×4 (07:36→19:53)
[2017-04-14 07:52] VITALS: BP 129/79; PULSE 96; TEMP 36.5; O2SAT 92
[2017-04-14] MEDS: CITALOPRAM 40 MG TAB PO SCH (08:19)
[2017-04-14] MEDS: CHOLECALCIFEROL 1000 INTER.UNIT TAB PO SCH ×2 (08:19→21:18)
[2017-04-14] MEDS: POLYETHYLENE (MIRALAX) 17 GM PACK PO SCH (08:20)
[2017-04-14] MEDS: CYANOCOBALAMIN 500 MCG TAB (VIT B-12) PO SCH (08:20)
[2017-04-14] MEDS: PANTOprazole SOD 40 MG TAB PO SCH ×2 (08:20→21:18)
[2017-04-14] MEDS: MoRPHine SULFATE 4 MG/ML 1 ML CARP\\VIAL IV PRN ×2 (08:27→19:48)
[2017-04-14 09:51] VITALS: O2SAT 92
--- NOTE | 2017-04-14 11:46 | Gastroenterology Progress Note ---
Progress Note Date of Service: Apr 14, 2017 Subjective Pt evaluation today including: conversation w/ patient, physical exam, chart review GI asked to re-evaluate the pt for LUQ pain. Pt was seen and evaluated, chart reviewed. Notes left sided discomfort w/ radiation to periumbilical region. No change in symptoms with PO intake. No change in symptoms with BM. Notes she had a large BM two day ago, no BM yesterday or today. No black/bloody stools. No fever, chills, CP, SOB CT ABD 04/27: Suboptimal examination without oral and IV contrast. There are no acute infectious or inflammatory findings in the abdomen or pelvis, and there has been no significant change from study performed 3 days previously.There are postoperative changes from sigmoid colon resection with colocolonic anastomosis. No bowel obstruction is seen. There is moderate diverticulosis of the remaining colon without CT evidence of acute diverticulitis. Additional findings as above. EGD 04/27: Mild non erosive esophagitis. No source of upper GI bleeding Colonoscopy: diverticulosis Review of Systems Constitutional: No fever, No chills Respiratory: No cough, No shortness of breath Cardiac: No chest pain, No edema Abdomen: + pain, No nausea, No vomiting, No diarrhea, No constipation, No GI bleeding Medications Current Inpatient Medications Medications (Trade) Dose Ordered Sig/Kaye Route Start Time Stop Time Status Last Admin Dose Admin Acetaminophen (Tylenol Tab) 650 mg Q4H PRN PO 04/08/17 19:00 05/08/17 18:59 Ondansetron HCl (Zofran Inj) 4 mg Q6H PRN IV 04/08/17 19:00 05/08/17 18:59 Albuterol/ Ipratropium (Duoneb) 3 ml QIDR INH 04/08/17 20:00 05/08/17 19:59 04/12/17 15:09 3 ML Cholecalciferol (Vitamin D Tab) 1,000 inter.unit BID PO 04/08/17 21:00 05/08/17 20:59 04/14/17 08:19 1,000 INTER.UNIT Citalopram Hydrobromide (celeXA TAB) 40 mg QAM PO 04/09/17 09:00 05/09/17 08:59 04/14/17 08:19 40 MG Cyanocobalamin (Vitamin B-12 Tab) 1,000 mcg QAM PO 04/09/17 09:00 05/09/17 08:59 04/14/17 08:20 1,000 MCG Docusate Sodium (coLACE CAP) 200 mg HS PO 04/08/17 21:00 05/08/17 20:59 04/13/17 07:54 200 MG Furosemide (Lasix Tab) 40 mg Q2D PO 04/09/17 09:00 05/09/17 08:59 04/13/17 07:54 40 MG Lorazepam (Ativan Tab) 1 mg DAILY PRN PO 04/08/17 19:15 05/08/17 19:14 04/14/17 00:01 1 MG Lorazepam (Ativan Tab) 2 mg HS PRN PO 04/08/17 19:15 05/08/17 19:14 04/10/17 21:50 2 MG Potassium Chloride (Klor-Con M10) 10 meq Q2D PO 04/09/17 09:00 05/09/17 08:59 04/13/17 07:55 10 MEQ Warfarin Sodium (Coumadin Tab) 5 mg TuThSa@1600 PO 04/08/17 21:00 05/08/17 20:59 Future hold 04/12/17 16:41 5 MG Pantoprazole Sodium (Protonix Tab) 40 mg BID PO 04/08/17 21:00 05/08/17 20:59 04/14/17 08:20 40 MG Lidocaine (Lidoderm Patch 5%) 1 patch HS TD 04/08/17 21:00 05/08/17 20:59 04/13/17 20:25 1 PATCH Miscellaneous (Remove Lidoderm Patch) 1 ea DAILY@0900 N/A 04/09/17 09:00 05/09/17 08:59 04/14/17 08:21 1 EA Miscellaneous (Iv Fluids Completed) 1 ea PRN PRN N/A 04/08/17 20:00 04/08/18 19:59 Warfarin Sodium (Coumadin Tab) 7.5 mg SuMoWeFr@1600 PO 04/09/17 16:00 05/09/17 15:59 Future hold 04/13/17 15:30 7.5 MG Heparin Sodium (Porcine) (Heparin 100 Unit/ml 5ml Flush) 5 ml PRN PRN IV 04/09/17 06:45 05/09/17 06:44 04/14/17 08:27 5 ML Polyethylene (Miralax Powder Packet) 17 gm DAILY PO 04/09/17 12:00 05/09/17 11:59 04/10/17 11:50 17 GM Acetaminophen/ Hydrocodone Bitart ([place] 5/325 Tab) pain not relieved by tylenol Q6H PRN PO 04/09/17 19:30 04/22/17 19:14 04/14/17 06:36 2 TAB Cyclobenzaprine HCl (Flexeril Tab) 5 mg TID PRN PO 04/10/17 17:15 05/10/17 17:14 04/12/17 10:35 5 MG Prednisone (PredniSONE TAB) 40 mg DAILY PO 04/12/17 09:00 05/12/17 08:59 04/14/17 08:20 40 MG Albuterol/ Ipratropium (Duoneb) 3 ml Q4R PRN INH 04/11/17 19:15 05/11/17 19:14 Morphine Sulfate (MoRPHine SULFATE INJ) 4 mg Q8H PRN IV 04/13/17 18:45 04/26/17 18:14 04/14/17 08:27 4 MG Objective Vital Signs Date Time Temp Pulse Resp B/P (MAP) Pulse Ox O2 Delivery O2 Flow Rate FiO2 04/14/17 09:51 92 Room Air 2.0 04/14/17 07:52 36.5 96 20 129/79 (96) 92 Room Air 04/14/17 00:00 94 Room Air CPAP 04/13/17 23:56 36.5 55 18 117/65 (82) 95 Room Air 04/13/17 20:00 94 Room Air 2.0 CPAP 04/13/17 16:00 Room Air CPAP 04/13/17 15:30 36.7 55 18 126/79 (95) 94 Room Air Physical Exam General Appearance: no apparent distress Eyes: PERRL ENT: hearing grossly normal Neck: supple Respiratory/Chest: lungs clear, normal breath sounds Cardiovascular: regular rate, rhythm Abdomen: normal bowel sounds, non tender, soft, no organomegaly Neurologic/Psych: alert, normal mood/affect, oriented x 3 Skin: normal color Laboratory Results Last 24 Hours Test 04/14/17 05:21 White Blood Count 12.20 K/uL Red Blood Count 4.58 M/uL Hemoglobin 10.8 g/dL Hematocrit 36.5 % Mean Corpuscular Volume 79.7 fL Mean Corpuscular Hemoglobin 23.6 pg Mean Corpuscular Hemoglobin Concent 29.6 g/dl Platelet Count 250 K/uL Mean Platelet Volume 10.1 fL Neutrophils (%) (Auto) 61.9 % Lymphocytes (%) (Auto) 29.7 % Monocytes (%) (Auto) 6.2 % Eosinophils (%) (Auto) 1.6 % Basophils (%) (Auto) 0.4 % Neutrophils # (Auto) 7.54 K/uL Lymphocytes # (Auto) 3.62 K/uL Monocytes # (Auto) 0.76 K/uL Eosinophils # (Auto) 0.20 K/uL Basophils # (Auto) 0.05 K/uL RDW Standard Deviation 58.3 fL RDW Coefficient of Variation 20.1 % Immature Granulocyte % (Auto) 0.2 % Immature Granulocyte # (Auto) 0.03 K/uL Polychromasia 1+ Hypochromasia PRESENT Anisocytosis PRESENT Ovalocytes 1+ Sodium Level 138 mmol/L Potassium Level 3.6 mmol/L Chloride Level 100 mmol/L Carbon Dioxide Level 34 mmol/L Anion Gap 4.0 mmol/L Blood Urea Nitrogen 19 mg/dl Creatinine 0.85 mg/dl Est Creatinine Clear Calc Drug Dose 84.2 ml/min Estimated GFR () 88.2 Estimated GFR (Non- 76.1 BUN/Creatinine Ratio 21.9 Random Glucose 80 mg/dl Calcium Level 8.3 mg/dl Assessment and Plan Patient is a 56 year old female on chronic steroids with report of melena, w/o significant drop in Hb. Differentials considered are gastritis, esophagitis, ulcer disease. EGD w/o significant findings, repeat CT benign from GI standpoint. She has a history of numerous abdominal surgeries, perhaps some of her symptoms are related to adhesive disease. Trial Bentyl 10 mg three times daily Miralax daily FODMAPs diet Outpatient GI follow up w/ repeat colonoscopy if symptoms persist GI to sign off, please call with any questions or concerns I saw and evaluated the patient. We were asked to evaluate her for left upper quadrant discomfort. She has a prior history of perforated diverticulitis resulting in a sigmoid colectomy several years ago. She describes having intermittent left-sided discomfort waxes and wanes throughout the day. Physical examination No obvious distress Obese abdomen Mild tenderness in the left quadrant Impression/recomendations: Patient CT seems to suggest chronic constipation. I would suggest beginning Bentyl 10 mg 3 times daily and MiraLAX 17 g 1 time daily. She will follow-up with her regular GI continuity in 8-12 weeks. If her symptoms persist we could consider arranging a repeat colonoscopy at that time.
[2017-04-14 15:03] VITALS: BP 118/74; PULSE 89; TEMP 36.8; O2SAT 92
[2017-04-14] MEDS: DICYCLOMINE HCL 20 MG TAB PO SCH ×2 (15:15→21:17)
[2017-04-14] MEDS: WARFARIN SOD 7.5 MG TAB PO SCH (15:16)
[2017-04-14 16:36] VITALS: O2SAT 92
--- NOTE | 2017-04-14 19:11 | Progress Note ---
Medicine Progress Note Date & Time of Visit: Apr 14, 2017 at 19:06. Subjective seen resting in bed, comfortable states abdominal pain is improving today has BMs breathing also improved, no cough denies other symptoms Objective Last 8 Hrs Date Time Temp Pulse Resp B/P (MAP) Pulse Ox O2 Delivery O2 Flow Rate FiO2 04/14/17 16:36 92 Room Air 04/14/17 15:03 36.8 89 18 118/74 (89) 92 Room Air Physical Exam: General-oriented x 3, not in distress, speaks in sentences with no effort Eyes- anicteric Neck- no JVD Lungs-clear breath sounds bilaterally, no rales/wheezes Heart- regular rhythm; normal rate, no murmurs Abdomen- normal bowel sounds, soft, NO tenderness on the LUQ Extremities- no pretibial edema, no calf tenderness Neuro- alert, oriented x 3; no gross focal deficits Skin- warm & dry Laboratory Results: Last 24 Hours Test 04/14/17 05:21 White Blood Count 12.20 K/uL Red Blood Count 4.58 M/uL Hemoglobin 10.8 g/dL Hematocrit 36.5 % Mean Corpuscular Volume 79.7 fL Mean Corpuscular Hemoglobin 23.6 pg Mean Corpuscular Hemoglobin Concent 29.6 g/dl Platelet Count 250 K/uL Mean Platelet Volume 10.1 fL Neutrophils (%) (Auto) 61.9 % Lymphocytes (%) (Auto) 29.7 % Monocytes (%) (Auto) 6.2 % Eosinophils (%) (Auto) 1.6 % Basophils (%) (Auto) 0.4 % Neutrophils # (Auto) 7.54 K/uL Lymphocytes # (Auto) 3.62 K/uL Monocytes # (Auto) 0.76 K/uL Eosinophils # (Auto) 0.20 K/uL Basophils # (Auto) 0.05 K/uL RDW Standard Deviation 58.3 fL RDW Coefficient of Variation 20.1 % Immature Granulocyte % (Auto) 0.2 % Immature Granulocyte # (Auto) 0.03 K/uL Polychromasia 1+ Hypochromasia PRESENT Anisocytosis PRESENT Ovalocytes 1+ Sodium Level 138 mmol/L Potassium Level 3.6 mmol/L Chloride Level 100 mmol/L Carbon Dioxide Level 34 mmol/L Anion Gap 4.0 mmol/L Blood Urea Nitrogen 19 mg/dl Creatinine 0.85 mg/dl Est Creatinine Clear Calc Drug Dose 84.2 ml/min Estimated GFR () 88.2 Estimated GFR (Non- 76.1 BUN/Creatinine Ratio 21.9 Random Glucose 80 mg/dl Calcium Level 8.3 mg/dl Assessment & Plan DYSPNEA ON EXERTION, FATIGUE LIKELY SYMPTOMATIC ANEMIA R/O GI BLEED IN THE SETTING OF COUMADIN USE - Hg decreased to 8, Iron 12 - GI consulted EGD: esophagitis recommend PPI BID x 2 weeks then daily appreciate GI consult - s/p 2 units pRBC Hg improved to 10- remains stable needs Iron supplement - INR 3.0 continue coumadin INR daily LUQ PAIN - CT abdomen:IMPRESSION: 1. No acute intra-abdominal or intrapelvic abnormality identified. 2. Prior cholecystectomy, hysterectomy and partial sigmoid colon resection. 3. Colonic diverticulosis without diverticulitis. 4. Cystic lesion of the left adnexum, 2.5 x 2.2 cm is unchanged from comparison study. - repeat CT abdomen: no signs of diverticulitis - GI re consulted pain likely from adhesions recommend Bentyl TID, Miralax daily - pain improving POSSIBLE ASTHMA EXACERBATION, MILD - Prednisone 40mg po daily cxr clear - improved CHEST PAIN ACS RULED OUT - Risk factors: HTN, obesity - EKG: NSR rate 75. Negative initial Troponin.CT scan in ER today shows resolution previous PE, no new PE, no infiltrate. Stable T9 & T11 deformities. Pain reproducible with palpation. suspect musculoskeletal etiology - cardiac markers negative EKG non ischemic - likely musculoskeletal pain HX PE CT scan shows resolving PE from previous in 02/2017. INR: 2.4 - inr 3.0 continue coumadin CHRONIC LOW BACK PAIN -hx T9 compression fracture 10/2016 and chronic pain, no worsening noted on CT chest -continue home pain meds - norco 5/325mg OBSTRUCTIVE SLEEP APNEA -CPAP at bedtime as per home settings ANXIETY/DEPRESSION -Celexa daily -Ativan 1mg po in am prn anxiety. ativan 2mg in evening prn anxiety DVT PROPHYLAXIS - INR 3.0 coumadin DISPOSITION anticipate d/c home tomorrow Current Inpatient Medications: Current Inpatient Medications Medications (Trade) Dose Ordered Sig/Kaye Route Start Time Stop Time Status Last Admin Dose Admin Acetaminophen (Tylenol Tab) 650 mg Q4H PRN PO 04/08/17 19:00 05/08/17 18:59 Ondansetron HCl (Zofran Inj) 4 mg Q6H PRN IV 04/08/17 19:00 05/08/17 18:59 Albuterol/ Ipratropium (Duoneb) 3 ml QIDR INH 04/08/17 20:00 05/08/17 19:59 04/12/17 15:09 3 ML Cholecalciferol (Vitamin D Tab) 1,000 inter.unit BID PO 04/08/17 21:00 05/08/17 20:59 04/14/17 08:19 1,000 INTER.UNIT Citalopram Hydrobromide (celeXA TAB) 40 mg QAM PO 04/09/17 09:00 05/09/17 08:59 04/14/17 08:19 40 MG Cyanocobalamin (Vitamin B-12 Tab) 1,000 mcg QAM PO 04/09/17 09:00 05/09/17 08:59 04/14/17 08:20 1,000 MCG Docusate Sodium (coLACE CAP) 200 mg HS PO 04/08/17 21:00 05/08/17 20:59 04/13/17 07:54 200 MG Furosemide (Lasix Tab) 40 mg Q2D PO 04/09/17 09:00 05/09/17 08:59 04/13/17 07:54 40 MG Lorazepam (Ativan Tab) 1 mg DAILY PRN PO 04/08/17 19:15 05/08/17 19:14 04/14/17 00:01 1 MG Lorazepam (Ativan Tab) 2 mg HS PRN PO 04/08/17 19:15 05/08/17 19:14 04/10/17 21:50 2 MG Potassium Chloride (Klor-Con M10) 10 meq Q2D PO 04/09/17 09:00 05/09/17 08:59 04/13/17 07:55 10 MEQ Warfarin Sodium (Coumadin Tab) 5 mg TuThSa@1600 PO 04/08/17 21:00 05/08/17 20:59 Future hold 04/12/17 16:41 5 MG Pantoprazole Sodium (Protonix Tab) 40 mg BID PO 04/08/17 21:00 05/08/17 20:59 04/14/17 08:20 40 MG Lidocaine (Lidoderm Patch 5%) 1 patch HS TD 04/08/17 21:00 05/08/17 20:59 04/13/17 20:25 1 PATCH Miscellaneous (Remove Lidoderm Patch) 1 ea DAILY@0900 N/A 04/09/17 09:00 05/09/17 08:59 04/14/17 08:21 1 EA Miscellaneous (Iv Fluids Completed) 1 ea PRN PRN N/A 04/08/17 20:00 04/08/18 19:59 Warfarin Sodium (Coumadin Tab) 7.5 mg SuMoWeFr@1600 PO 04/09/17 16:00 05/09/17 15:59 Future hold 04/14/17 15:16 7.5 MG Heparin Sodium (Porcine) (Heparin 100 Unit/ml 5ml Flush) 5 ml PRN PRN IV 04/09/17 06:45 05/09/17 06:44 04/14/17 08:27 5 ML Polyethylene (Miralax Powder Packet) 17 gm DAILY PO 04/09/17 12:00 05/09/17 11:59 04/10/17 11:50 17 GM Acetaminophen/ Hydrocodone Bitart ([place] 5/325 Tab) pain not relieved by tylenol Q6H PRN PO 04/09/17 19:30 04/22/17 19:14 04/14/17 15:17 2 TAB Cyclobenzaprine HCl (Flexeril Tab) 5 mg TID PRN PO 04/10/17 17:15 05/10/17 17:14 04/12/17 10:35 5 MG Prednisone (PredniSONE TAB) 40 mg DAILY PO 04/12/17 09:00 05/12/17 08:59 04/14/17 08:20 40 MG Albuterol/ Ipratropium (Duoneb) 3 ml Q4R PRN INH 04/11/17 19:15 05/11/17 19:14 Morphine Sulfate (MoRPHine SULFATE INJ) 4 mg Q8H PRN IV 04/13/17 18:45 04/26/17 18:14 04/14/17 08:27 4 MG Dicyclomine HCl (Bentyl Tab) 10 mg TID PO 04/14/17 14:00 05/14/17 13:59 04/14/17 15:15 10 MG
[2017-04-14] MEDS: DOCUSATE SODIUM 100 MG CAP PO SCH (21:17)
[2017-04-14] MEDS: LIDODERM (LIDOCAINE) PATCH 5% TD SCH (21:19)
[2017-04-14 23:54] VITALS: BP 165/71; PULSE 91; TEMP 36.7; O2SAT 90
[2017-04-15] VITALS: O2SAT 94
[2017-04-15 05:09] LABS: BASO % 0.3 %; BASO ABS # 0.04 K/uL (0-0.2); COMPLETE YES; EOS % 1.2 %; HEMATOCRIT 36.5 % (37-47); IG% 0.2 %; LYMPH % 23.7 %; LYMPH ABS # 3.02 K/uL (1.2-3.4); MEAN CELL VOLUME 80.2 fL (80-100); MEAN CORPUSCULAR HEMOGLOBIN 23.3 pg (25-34); MEAN PLATELET VOLUME 10.5 fL (7.4-10.4); MONO % 7.4 %; NEUT % 67.2 %; PLATELET COUNT 253 K/uL (130-400); RED BLOOD COUNT 4.55 M/uL (4.2-5.4); WHITE BLOOD COUNT 12.74 K/uL (4.8-10.8)
[2017-04-15 05:22] LABS: INR 3.8 (0.9-1.1); PROTHROMBIN TIME (PATIENT) 38.7 SECONDS (9.0-12.0)
[2017-04-15 05:35] LABS: CALCIUM 8.6 mg/dl (8.5-10.1); CREATININE 0.87 mg/dl (0.60-1.20); POTASSIUM 3.9 mmol/L (3.5-5.1)
[2017-04-15] MEDS: FUROSEMIDE 40 MG TAB PO SCH (07:24)
[2017-04-15] MEDS: ALBUT/IPRATROP 3MG/0.5MG NEB 3 ML VIAL INH SCH ×3 (07:24→14:52)
[2017-04-15] MEDS: CITALOPRAM 40 MG TAB PO SCH (07:25)
[2017-04-15] MEDS: CYANOCOBALAMIN 500 MCG TAB (VIT B-12) PO SCH (07:25)
[2017-04-15] MEDS: DICYCLOMINE HCL 20 MG TAB PO SCH ×2 (07:25→14:00)
[2017-04-15] MEDS: POTASSIUM CHLORIDE 10 MEQ TABCR PO SCH (07:25)
[2017-04-15] MEDS: PANTOprazole SOD 40 MG TAB PO SCH (07:26)
[2017-04-15] MEDS: CHOLECALCIFEROL 1000 INTER.UNIT TAB PO SCH (07:26)
[2017-04-15] MEDS: POLYETHYLENE (MIRALAX) 17 GM PACK PO SCH (07:26)
[2017-04-15] MEDS: HYDROCODONE/ACETAMOPHEN 5/325MG TAB PO PRN ×2 (07:33→14:00)
[2017-04-15 07:44] VITALS: BP 116/54; PULSE 51; TEMP 36.5; O2SAT 97
[2017-04-15] MEDS ORDERED: MRLP17 PO (16:18)
[2017-04-15] MEDS ORDERED: PRD10 PO (16:18)
[2017-04-15] MEDS ORDERED: PRT40 PO (16:18)
[2017-04-15] MEDS ORDERED: FRRS300 PO (16:18)
[2017-04-15] MEDS ORDERED: BNT20 PO (16:18)
--- NOTE | 2017-04-15 16:24 | Discharge Instructions ---
Discharge Instructions Date of Service Apr 15, 2017. Admission Reason for Admission: Left-Sided Chest Wall Pain, Sob Discharge Discharge Diagnosis / Problem: ANEMIA Discharge Goals Goal(s): Diagnostic testing, Therapeutic intervention Activity Recommendations Activity Limitations: as noted below (INCREASE ACTIVITY GRADUALLY TOLERATED) Lifting Limitations: until after follow-up appointment Exercise/Sports Limitations: until after follow-up appointment . Instructions / Follow-Up Instructions / Follow-Up PLEASE REFER TO YOUR NEW MEDICATION LIST AND FOLLOW INSTRUCTIONS CAREFULLY. FOLLOW PREDNISONE TAPER FOLLOWS: TAKE 3 TABS (30 MG) PO DAILY X 2 DAYS, THEN TAKE 2 TABS (20 MG) PO DAILY X 2 DAYS, THEN TAKE 1 TAB (10 MG) PO DAILY X 2 DAYS, THEN TAKE 1/2 TAB (5 MG) PO DAILY X 2 DAYS, THEN STOP DO NOT TAKE COUMADIN TODAY. THE COUMADIN CLINIC WILL CALL YOU FOR BLOOD WORK AND FURTHER INSTRUCTIONS TOMORROW. IF YOU HAVE NOT RECEIVED ANY CALL FROM THEM, PLEASE CALL THE COUMADIN CLINIC TOMORROW. FOLLOW UP WITH PRIMARY CARE PROVIDER CRISTOPHER TALBOT ON 04/17/17 AT 1:30PM. FOLLOW UP WITH INSURANCE BROKER DR. NAPIER/DR. WALLACE IN 4-6 WEEKS. TEL NO. Current Hospital Diet Patient's current hospital diet: AHA Diet (Heart Healthy) Discharge Diet Recommended Diet: AHA Diet (Heart Healthy) Procedures Procedures Performed: EGD, BLOOD TRANSFUSION OF PACKED RED BLOOD CELLS Pending Studies Studies pending at discharge: yes List of pending studies: REPEAT INR C/O COUMADIN CLINIC. Medical Emergencies . Who to Call and When: Medical Emergencies: If at any time you feel your situation is an emergency, please call 911 immediately. . Non-Emergent Contact Non-Emergency issues call your: Primary Care Provider Call Non-Emergent contact if: you have a fever, your pain is not controlled, your pain is worsening, you have any medication questions . . "Provider Documentation" section prepared by Arley Mar. . VTE Core Measure Inpt VTE Proph given/why not?: Warfarin (Coumadin)
[2017-04-15 16:32] VITALS: BP 116/54; PULSE 51; TEMP 36.5; O2SAT 97
--- NOTE | 2017-04-16 14:48 | Discharge Summary ---
Discharge Summary Date of Service Apr 16, 2017. Discharge Summary Admission Date: Apr 13, 2017 at 16:14 Discharge Date: Apr 15, 2017 Discharge Disposition: Home Principal Diagnosis: DYSPNEA ON EXERTION, FATIGUE LIKELY SYMPTOMATIC ANEMIA Secondary Diagnoses/Problems: Please refer to hospital course below. Procedures: Blood Transfusion pRBC 2 units DICTATED BY: Sugey Napier M.D. Procedure Date: 04/10/2017 9:05 AM Procedure: Upper GI endoscopy Indications: Acute post hemorrhagic anemia Medicines: See the Anesthesia note for documentation of the administered medications Complications: No immediate complications. Estimated Blood Loss: Estimated blood loss: none. Procedure: Pre-Anesthesia Assessment: - ASA Grade Assessment: III - A patient with severe systemic disease. After obtaining informed consent, the endoscope was passed under direct vision. Throughout the procedure, the patient's blood pressure, pulse, and oxygen saturations were monitored continuously. The Scope was introduced through the mouth, and advanced to the second part of duodenum. The upper GI endoscopy was accomplished without difficulty. The patient tolerated the procedure well. Findings: There was mild hyperkeratosis and desquamation of lower esophagus, suggestive of reflux esophagitis. No esophageal erosions were seen, and the esophagus was otherwise normal. The stomach was normal. The papilla was thought to be mildly prominent. Otherwise, the duodenum was normal. Impression: Mild non erosive esophagitis. No source of upper GI bleeding. Recommendation: - Discharge patient to floor. Twice daily PPI for 2 weeks, then once daily. Resume normal diet. No need to repeat cscopy at this point. Would ask primary service to chcek hgb daily while pt is an an inpt, and reconsult us if she develops signs of bleeding. Please call with questions. Jaylene Putnam MD 04/10/2017 11:32:30 AM This report has been signed electronically. Note Initiated On: 04/10/2017 9:05 AM I attest to the content of the Intraoperative Record and orders documented therein, exceptions below (CHEST FOR PE) ANGIO WITH CLINICAL HISTORY: 56 years-old Female presenting with ^Recent PE, recent subtherapeutic INR. TECHNIQUE: Multidetector CT angiography of the chest was performed after administration of intravenous contrast. 3-D volumetric and/or maximum intensity projection (MIP) images were subsequently reconstructed for review. IV contrast: 101 mL of Optiray 320. A dose lowering technique was used consistent with the principles of ALARA (as low as reasonably achievable). COMPARISON: 02/19/2017. CT DOSE (mGy.cm): The estimated cumulative dose is 650.34 mGy.cm. FINDINGS: Hand Fur Cleaner topogram: Left subclavian Mediport terminates at the superior cavoatrial junction. Pulmonary vasculature: The study is adequate for assessment of the pulmonary vascular tree. The previously noted filling defects and segmental and subsegmental branches of the right lung have resolved. Main pulmonary artery is not enlarged. No flattening of the interventricular septum. No intracardiac intracardiac filling defect. No reflux of contrast into the hepatic veins. Remaining chest: On soft tissue windows, normal thyroid and thoracic inlet. No axillary, supraclavicular, hilar, or mediastinal lymphadenopathy. Mild perivascular inflammatory change along the course of the left brachial/axillary vein (series 4 image [id number]). Normal heart size. No pericardial or pleural effusion. Cholecystectomy clips noted. On lung windows, minimal dependent changes likely atelectasis. Punctate nodule at the right apex unchanged (series 4 image 239). Previously noted adjacent nodule at the right apex is no longer apparent minimal emphysematous changes evident. Mosaic attenuation could suggest small airways disease or a vascular etiology. Mild bronchial wall thickening. Airways otherwise patent. On bone windows, focal sclerotic lesion in the posterior lateral left fifth rib. This is unchanged from prior exam and may represent a bone island. Previously noted anterior vertebral body height loss of T9 and to lesser extent at T11 unchanged from prior exam. Osteopenia. IMPRESSION: 1. Interval resolution of previously noted pulmonary emboli. No new pulmonary emboli. 2. Mild perivascular inflammatory change along the course of the left brachial/axillary vein. If there is clinical concern, left upper extremity venous Doppler could be obtained to ensure patency. 3. Bronchial wall thickening and minimal changes of emphysema. 4. The previously noted right apical nodule is no longer apparent, possibly indicating an inflammatory etiology. 5. Osteopenia with unchanged compression deformities of T9 and T11. ABDOMEN AND PELVIS CT WITHOUT CONTRAST CT DOSE: 1112.33 mGy.cm HISTORY: Acute left-sided abdominal pain left abdominal pain TECHNIQUE: Multiaxial CT images of the abdomen and pelvis were performed without contrast. A dose lowering technique was utilized adhering to the principles of ALARA. COMPARISON STUDY: CT abdomen and pelvis 05/13/2015, CTA chest 04/08/2017. FINDINGS: Mild right hemidiaphragmatic elevation. Subsegmental basilar consolidation lung bases suggest areas of atelectasis and/or scarring. No pneumatosis or pneumoperitoneum. Imaged inferior cardiac chambers are unremarkable. Left subclavian [id number] catheter is noted with distal tip terminating in the SVC just proximal to the superior cavoatrial junction. Evaluation of the solid abdominal organs is limited without the use of contrast. Prior cholecystectomy. Unchanged low attenuating lesion of the mid spleen, 7 x 6 mm. The spleen is otherwise unremarkable. The liver and adrenal glands are within normal limits. There is moderate diffuse pancreatic atrophy. There is a dropped cholecystectomy clip noted adjacent to the superior pole right kidney. No renal calculi or hydronephrosis. Kidneys, ureters and urinary bladder are unremarkable. Prior hysterectomy. Cystic lesion of the left adnexum measures 2.5 x 2.2 cm. This is unchanged from comparison. Moderate atherosclerosis of the aorta without aneurysm. No bulky adenopathy. There is no bowel obstruction or focal bowel wall thickening. Postsurgical changes of the mid sigmoid colon suggests partial sigmoid colon resection. Moderate colonic diverticulosis without diverticulitis. Post surgical changes suggest prior appendectomy. There are post surgical changes of the anterior abdominal wall. Patient obesity noted. The bones appear intact. Degenerative changes are seen within the spine, pelvis and hips. Anterior endplate compression deformities without retropulsed are seen within the T9 and T11 vertebral bodies which are unchanged from comparison CT of the chest. IMPRESSION: 1. No acute intra-abdominal or intrapelvic abnormality identified. 2. Prior cholecystectomy, hysterectomy and partial sigmoid colon resection. 3. Colonic diverticulosis without diverticulitis. 4. Cystic lesion of the left adnexum, 2.5 x 2.2 cm is unchanged from comparison study. SINGLE VIEW CHEST CLINICAL HISTORY: Wheezing. FINDINGS: An AP, portable, upright chest radiograph is compared to chest x-ray and chest CT dated 04/08/2017. The examination is degraded by portable technique and patient rotation. A left subclavian central venous infusion port is unchanged in position. The heart is top normal for projection and there is atherosclerotic calcification of the thoracic aorta. There is elevation of the right hemidiaphragm with mild bibasilar atelectasis. No airspace consolidation, large pleural effusion, or pneumothorax is seen. The skeletal structures are osteopenic. The bony thorax is grossly intact. Cholecystectomy clips are seen in the right upper quadrant. IMPRESSION: No acute cardiopulmonary abnormality. CT SCAN OF THE ABDOMEN AND PELVIS WITHOUT IV CONTRAST CLINICAL HISTORY: Left upper quadrant abdominal pain. COMPARISON STUDY: Abdominal CT dated 04/10/2017. TECHNIQUE: CT scan of the abdomen and pelvis is performed from the lung bases to the proximal femora. Images are reviewed in the axial, sagittal, and coronal planes. IV contrast was not administered for this examination as per the referring clinician. Note that the examination was performed in significantly suboptimal fashion without oral and IV contrast. A dose lowering technique was utilized adhering to the principles of ALARA. CT DOSE: 1165.52 mGy.cm FINDINGS: Lung bases: The heart is normal in size and without pericardial effusion. The coronary arteries are densely calcified. A fat-containing Bochdalek hernia is present at both lung bases. No airspace consolidation or pleural effusion is identified. There is a tiny hiatal hernia. Liver: The unenhanced liver is normal in size, contour, and attenuation. There is minimal central intrahepatic biliary ductal dilatation. Gallbladder: Surgically absent noting clips in the gallbladder fossa. Spleen: Normal in size and attenuation. Pancreas: The unenhanced pancreas is atrophic and grossly unremarkable. Adrenal glands: Unremarkable. Kidneys: The unenhanced kidneys are atrophic and without hydronephrosis. There are no renal calculi identified. There is no evidence of contour deforming renal mass lesion. Abdominal vasculature: There is advanced atherosclerotic calcification and ectasia of the abdominal aorta. Bowel: There are postoperative changes from sigmoid colon resection with colocolonic anastomosis. No bowel obstruction is seen. There is moderate diverticulosis of the remaining colon without CT evidence of acute diverticulitis. The appendix is not identified and reported surgically absent. Peritoneum: There is no intraperitoneal free air or abdominal ascites. A midline surgical scar is noted. There is a small fat-containing umbilical hernia. Lymphadenopathy: None. Pelvic viscera: The bladder is normal as visualized. The uterus is surgically absent. A 2.9 cm cystic focus is noted in the left ovary on image #347. This is unchanged from previous. Skeletal structures: The skeletal structures are osteopenic. There are compression deformities of T9 and T11. No lytic or blastic lesions are seen. IMPRESSION: 1. Suboptimal examination without oral and IV contrast. 2. There are no acute infectious or inflammatory findings in the abdomen or pelvis, and there has been no significant change from study performed 3 days previously. 3. There are postoperative changes from sigmoid colon resection with colocolonic anastomosis. No bowel obstruction is seen. 4. There is moderate diverticulosis of the remaining colon without CT evidence of acute diverticulitis. 5. Additional findings as above. Electronically signed by: Nathanael Rutherford M.D. 04/13/2017 6:01 PM Consultations: Pulmonary, Gastroenterology Pending Studies/Follow-Up: Please refer to hospital course below. Medication Reconciliation New Medications: Ferrous Sulfate (Ferrous Sulfate) 325 Mg Tab 1 TAB PO BID for 30 Days, #60 TABS 1 Refill Prednisone (Prednisone) 10 Mg Tab 1 TAB PO UD for 8 Days, #13 TABS Dicyclomine HCl (Dicyclomine HCl) 20 Mg Tab 10 MG PO TID for 14 Days, #21 TAB 1 Refill Pantoprazole (Pantoprazole Sodium) 40 Mg Tab 40 MG PO BID for 30 Days, #60 TAB 1 Refill take 1 tab po BID x 10 days, then daily Polyethylene (Miralax) 17 Gm Pow 17 GM PO DAILY for 30 Days, #30 PKT 1 Refill Continued Medications: Albuterol Hfa (Ventolin Hfa) 200 Puffs/29220 Mcg Aers 2 PUFFS INH Q6H PRN for SOB/Wheezing Cholecalciferol (Vitamin D) 1,000 Unit Tab 1000 INTER.UNIT PO BID Citalopram (Citalopram Hydrobromide) 40 Mg Tab 40 MG PO QAM Cyanocobalamin (Vitamin B-12) 1,000 Mcg Tab 1000 MCG PO QAM, TAB Cyclobenzaprine HCl (Cyclobenzaprine HCl) 5 Mg Tab 5 MG PO HS PRN for Muscle Spasm Docusate Sodium (Colace) 100 Mg Cap 200 MG PO HS, CAP Epinephrine (Epipen 2-Deshawn) 0.3 Mg Inj 0.3 MG IM UD PRN for ALLERGIC REACTION Furosemide (Furosemide) 40 Mg Tab 40 MG PO Q2D Home O2 Therapy (Oxygen) Gas 2 LITERS NA HS, #1 2lts while ambulating and USE DIRECTED WITH C PAP Hydrocodone/Acetaminophen 5MG/325MG ([place] 5MG/325MG) Tab 1-2 TABS PO Q6H PRN for Pain, TAB Immune Globulin (Human) Iv (Privigen) 5 Gm/50 Ml Inj 1 DOSE IV MONTHLY Levalbuterol Hcl (Levalbuterol Hcl) 1.25 Mg/3 Ml Neb 1.25 MG INH Q4 PRN for SOB/Wheezing, #1 Lorazepam (Ativan) 1 Mg Tab 2 MG PO HS PRN for Anxiety, TAB Lorazepam (Lorazepam) 1 Mg Tab 1 MG PO DAILY PRN for Anxiety Potassium Chloride (Micro-K Ext Rel) 10 Meq Capcr 10 MEQ PO Q2D, CAP Prednisone (Prednisone) 10 Mg Tab 10 MG PO DAILY prn asthma flare as directed Discontinued Medications: Omeprazole (Prilosec) 20 Mg Cap 20 MG PO BID Warfarin Sod (Coumadin) 5 Mg Tab 1 TAB PO UD 1 tab po tu, thurs, sat 1.5 tab po mon, wed, fri, sun Admission Information HPI (per Admitting provider): Pt is 56 y/o F with hx asthma, adrenal insufficiency secondary to chronic steroid use, iron deficiency anemia, chronic back pain, GERD, depression/anxiety , Hx PE on Coumadin presents with c/o Left sided CP that began last night. States sharp pain to anterior and left chest and rib cage aggravated with movement. Also c/o increased SOB and wheezing started this morning. C/O lower chest tightness which see describes as her typical sensation with asthma exacerbation. Pt with hx admission 02/18/17 -02/24/17 for PE and asthma exacerbation. She was sent home with home O2 to use prn and with ambulation. Pt states hasn't felt need to use that. She reports today getting dressed she felt SOB and her sats 88 % on RA and HR was 134. She said she didn't think of using her O2. She didn't try using her albuterol inhaler or home neb. States she was worried so came to ER. Pt reports INR 1.1 last week, previously had been >2. Pt with significant asthma hx with multiple ER visits and hospitalizations over the years. Pt states finished doxycyline last night after 10 day course. Reports had productive cough x 1 day and called pulm and was rx doxy and prednisone taper. States finished taper 04/02. [facility]pul[facility]. Is not on main maintenance asthma medicine as she had been tried on multiple things without improvement per pt. Reports hx several bronchoscopies to remove mucous plugs and hx bronchial thermoplasty. Hx chronic back pain secondary to T9 compression fracture and on chronic pain meds for that. Denies recent injury or fall. In ER CT angio chest shows resolution previous PE, no new PE. U/S LUE: no DVT. vitals stable. EKG: NSR. negative troponin. INR: 2.4. Pt given solumedrol 125mg , nebs, morphine 4mg. Pt requesting admission as afraid to go home that things will worsen. Physical Exam (per Admitting): General Appearance: no apparent distress, + obese Head: normocephalic, atraumatic Eyes: normal inspection, PERRL, EOMI, sclerae normal ENT: hearing grossly normal, pharynx normal, + pertinent finding (mucous membranes moist) Neck: supple, no JVD, trachea midline Respiratory/Chest: no respiratory distress, no accessory muscle use, + pertinent finding (faint expiratory wheeze noted. chest wall +tenderness to palpation left lateral ribs. port in place left upper chest without surrounding erythema or edema) Cardiovascular: regular rate, rhythm, no edema, no murmur, normal peripheral pulses Abdomen/GI: normal bowel sounds, non tender, soft Back: normal inspection, + pertinent finding (+midline thoracic back pain to palpation) Extremities/Musculoskelatal: normal inspection, no calf tenderness, normal capillary refill, no pedal edema, non-tender, + pertinent finding (ROM intact) Neurologic/Psych: alert, normal mood/affect, oriented x 3 Skin: normal color, warm/dry Hospital Course DYSPNEA ON EXERTION, FATIGUE LIKELY SYMPTOMATIC ANEMIA - Hg decreased to 8, Iron 12 - GI consulted- Dr. Napier s/p EGD: Impression: Mild non erosive esophagitis. No source of upper GI bleeding. recommend PPI BID x 2 weeks then daily - s/p 2 units pRBC Hg improved to 10- remains stable Iron supplement prescribed, monitor as CBC and Fe as outpatient PERSISTENT LUQ PAIN, likely from CHRONIC CONSTIPATION, ADHESIONS - CT abdomen:IMPRESSION: 1. No acute intra-abdominal or intrapelvic abnormality identified. 2. Prior cholecystectomy, hysterectomy and partial sigmoid colon resection. 3. Colonic diverticulosis without diverticulitis. 4. Cystic lesion of the left adnexum, 2.5 x 2.2 cm is unchanged from comparison study. - repeat CT abdomen: no signs of diverticulitis - GI re consulted pain likely from adhesions, chronic constipation recommend Bentyl TID, Miralax daily ff up with GI in 8-12 weeks, may need Colonoscopy - pain improving ASTHMA EXACERBATION, MILD - Prednisone 40mg po daily, then taper cxr clear - improved ff up with Pulmonary SVC as scheduled CHEST PAIN ACS RULED OUT - Risk factors: HTN, obesity - EKG: NSR rate 75. Negative initial Troponin.CT scan in ER today shows resolution previous PE, no new PE, no infiltrate. Stable T9 & T11 deformities. Pain reproducible with palpation. suspect musculoskeletal etiology - cardiac markers negative EKG non ischemic - likely musculoskeletal pain HX PE CT scan shows resolving PE from previous in 02/2017. INR: 2.4 - inr 3.8 advised to hold coumadin until further instructions from coumadin clinic called coumadin clinic and they will be calling the patient for ff up CHRONIC LOW BACK PAIN -hx T9 compression fracture 10/2016 and chronic pain, no worsening noted on CT chest -continue home pain meds - norco 5/325mg OBSTRUCTIVE SLEEP APNEA -CPAP at bedtime as per home settings ANXIETY/DEPRESSION -Celexa daily -Ativan 1mg po in am prn anxiety. ativan 2mg in evening prn anxiety ABNORMAL CT SCAN FINDINGS - Left Adnexal Cyst , 2.5 x 2.2 cm - Splenic Lesion 7 x 6 mm - Right [place] Punctate Nodule -- please refer to above for complete CT scan reports ff up as outpatient DISPOSITION d/c home ff up with PCP in 1 week ff up with Coumadin Clinic (clinic to call patient) ff up with Pulmonary as scheduled ff up with GI in 8-12 weeks Total time spent on discharge = This includes examination of the patient, discharge planning, medication reconciliation, and communication with other providers. Discharge Instructions Discharge Instructions Date of Service Apr 15, 2017. Admission Reason for Admission: Left-Sided Chest Wall Pain, Sob Discharge Discharge Diagnosis / Problem: ANEMIA Discharge Goals Goal(s): Diagnostic testing, Therapeutic intervention Activity Recommendations Activity Limitations: as noted below (INCREASE ACTIVITY GRADUALLY TOLERATED) Lifting Limitations: until after follow-up appointment Exercise/Sports Limitations: until after follow-up appointment . Instructions / Follow-Up Instructions / Follow-Up PLEASE REFER TO YOUR NEW MEDICATION LIST AND FOLLOW INSTRUCTIONS CAREFULLY. FOLLOW PREDNISONE TAPER FOLLOWS: TAKE 3 TABS (30 MG) PO DAILY X 2 DAYS, THEN TAKE 2 TABS (20 MG) PO DAILY X 2 DAYS, THEN TAKE 1 TAB (10 MG) PO DAILY X 2 DAYS, THEN TAKE 1/2 TAB (5 MG) PO DAILY X 2 DAYS, THEN STOP DO NOT TAKE COUMADIN TODAY. THE COUMADIN CLINIC WILL CALL YOU FOR BLOOD WORK AND FURTHER INSTRUCTIONS TOMORROW. IF YOU HAVE NOT RECEIVED ANY CALL FROM THEM, PLEASE CALL THE COUMADIN CLINIC TOMORROW. FOLLOW UP WITH PRIMARY CARE PROVIDER CRISTOPHER TALBOT ON 04/17/17 AT 1:30PM. FOLLOW UP WITH CEPHALOMETRIC TRACER DR. NAPIER/DR. WALLACE IN 4-6 WEEKS. TEL NO. Current Hospital Diet Patient's current hospital diet: AHA Diet (Heart Healthy) Discharge Diet Recommended Diet: AHA Diet (Heart Healthy) Procedures Procedures Performed: EGD, BLOOD TRANSFUSION OF PACKED RED BLOOD CELLS Pending Studies Studies pending at discharge: yes List of pending studies: REPEAT INR C/O COUMADIN CLINIC. Medical Emergencies . Who to Call and When: Medical Emergencies: If at any time you feel your situation is an emergency, please call 911 immediately. . Non-Emergent Contact Non-Emergency issues call your: Primary Care Provider Call Non-Emergent contact if: you have a fever, your pain is not controlled, your pain is worsening, you have any medication questions . . "Provider Documentation" section prepared by Arley Mar. . VTE Core Measure Inpt VTE Proph given/why not?: Warfarin (Coumadin)
--- NOTE | 2017-04-17 08:27 | EDITING REQUIRED CODING QUERY ---
CODING QUERY To promote full compliance with coding requirements relating to patient care, provider participation is requested in all cases of professor of surgery uncertainty. Please assist us with the question(s) below: Coding Question: The following was documented in the record and the patient received 2 units of PRBCs. Please check all below that apply to the best of your knowledge. Thank you for your help! "LIKELY SYMPTOMATIC ANEMIA, R/O GI BLEED IN THE SETTING OF COUMADIN USE" ( ) Acute blood loss anemia ( ) Melena due to Coumadin use (X ) Other: (please specify) Possible Melene due to Coumadin use ( ) Unable to determine Thank you! Fátima Ryan Principal Diagnosis: "_that condition established after study, to be chiefly responsible for occasioning the admission of the patient to the hospital for care." Co-Existing Principal Diagnosis: "_when two or more diagnoses equally meet the criteria for principal diagnosis as determined by the circumstances of admission, diagnostic work up, and/or therapy provided, and the Alphabetic Index, Tabular List, or another coding guideline does not provide sequencing direction, any one of the diagnoses may be sequenced first." "When the physician has documented what appears to be a current diagnosis in the body of the record, but has not included the diagnosis in the final diagnostic statement, the physician should be asked whether the diagnosis should be added." (Source Coding Clinic 2 QTR90. p3-4)
== END 2017-04-15 17:04 | disposition home or self-care (01) | DRG 813 ==
LOC: C.EDB 14:23 → C.MED 19:01 → ENRESERV 19:12 → OBSVTOIN 04-13 16:14
PROVIDERS: ADMIT Hospitalist; ATTEND Internal Medicine
PROC: 0DJ08ZZ Inspection of Upper Intestinal Tract, Via Natural or Artificial Opening Endoscopic (ICD-10-PCS; principal; 2017-04-10 08:32)
DX: D68.32 Hemorrhagic disorder due to extrinsic circulating anticoagulants (principal); K92.1 Melena; J45.901 Unspecified asthma with (acute) exacerbation; R07.89 Other chest pain; K21.0 Gastro-esophageal reflux disease with esophagitis; D50.9 Iron deficiency anemia, unspecified; F32.9 Major depressive disorder, single episode, unspecified; E78.5 Hyperlipidemia, unspecified; M54.5 Low back pain; G89.29 Other chronic pain; F41.9 Anxiety disorder, unspecified; E88.01 Alpha-1-antitrypsin deficiency; E66.9 Obesity, unspecified; G47.33 Obstructive sleep apnea (adult) (pediatric); K59.00 Constipation, unspecified; T45.515A Adverse effect of anticoagulants, initial encounter; Z79.01 Long term (current) use of anticoagulants; Z79.52 Long term (current) use of systemic steroids; Z79.899 Other long term (current) drug therapy; Z68.35 Body mass index [BMI] 35.0-35.9, adult; Z99.81 Dependence on supplemental oxygen; Z86.711 Personal history of pulmonary embolism; Z87.891 Personal history of nicotine dependence

== ENCOUNTER 2017-06-16 16:30 | Emergency (ER) | payer OTHER ==
[~2017-06-16] VITALS: Ht 165.1 cm; Wt 92.3 kg
[~2017-06-16 16:30] MED LIST changes: +BNT20 PO; -CMD5 PO; +FRRS300 PO; +MRLP17 PO; -OMEP20CA9 PO; -OXYC1TAB3 PO; +PRD10 PO; +PRT40 PO
[2017-06-16 16:36] VITALS: TEMP 36.7; Ht 165.1 cm; Wt 92.3 kg
[2017-06-16 18:02] VITALS: O2SAT 98
[2017-06-16 18:11] LABS: BASO % 0.5 %; BASO ABS # 0.05 K/uL (0-0.2); EOS % 0.5 %; EOS ABS # 0.06 K/uL (0-0.5); HEMATOCRIT 41.4 % (37-47); HEMOGLOBIN 12.9 g/dL (12.0-16.0); IG# 0.06 K/uL (0.00-0.02); LYMPH % 14.7 %; LYMPH ABS # 1.62 K/uL (1.2-3.4); MEAN CELL VOLUME 86.6 fL (80-100); MEAN CORPUSCULAR HGB CONC 31.2 g/dl (32-36); MEAN PLATELET VOLUME 10.2 fL (7.4-10.4); MONO % 5.6 %; MONO ABS # 0.62 K/uL (0.11-0.59); NEUT % 78.2 %; NEUT ABS # 8.62 K/uL (1.4-6.5); PLATELET COUNT 242 K/uL (130-400); RED CELL DISTRIBUTION WIDTH CV 21.6 % (11.5-14.5); RED CELL DISTRIBUTION WIDTH SD 68.7 fL (36.4-46.3); WHITE BLOOD COUNT 11.03 K/uL (4.8-10.8)
[2017-06-16 18:28] LABS: INR 2.1 (0.9-1.1)
--- NOTE | 2017-06-16 18:30 | DIAGNOSTIC IMAGING REPORT ---
L RIBS UNILATERAL WITH PA CHEST CLINICAL HISTORY: Left rib pain. COMPARISON STUDY: No previous studies for comparison. FINDINGS: The erect chest reveals no pneumothorax. There is a left subclavian A-Port catheter. There is mild elevation left hemidiaphragm. There are left basal airspace opacities, possibly atelectatic. There is equivocal nondisplaced fracture the left ninth rib. IMPRESSION: 1. No evidence of pneumothorax 2. Equivocal nondisplaced fracture the left ninth rib 3. Left basilar opacities, likely atelectatic although an infectious/inflammatory process cannot be excluded 4. Elevation of the right hemidiaphragm Electronically signed by: Jules Letser M.D. 06/16/2017 6:28 PM Dictated Date/Time: 06/16/2017 6:27 PM
[2017-06-16] MEDS ORDERED: MoRPHine SULFATE 4 MG/ML 1 ML CARP\\VIAL IV STA ×2 (18:36→19:12)
[2017-06-16 18:39] LABS: PTT PATIENT 46.3 SECONDS (21.0-31.0)
[2017-06-16 18:44] LABS: ALBUMIN 3.5 gm/dl (3.4-5.0); ALT/SGPT 26 U/L (12-78); AST/SGOT 10 U/L (15-37); BLOOD UREA NITROGEN 14 mg/dl (7-18); CALCIUM 8.7 mg/dl (8.5-10.1); CARBON DIOXIDE 31 mmol/L (21-32); CREATININE 0.87 mg/dl (0.60-1.20); GLUCOSE 103 mg/dl (70-99); POTASSIUM 4.3 mmol/L (3.5-5.1); SODIUM 138 mmol/L (136-145)
[2017-06-16 18:49] LABS: ALKALINE PHOSPHATASE 46 U/L (45-117); TOTAL PROTEIN 6.9 gm/dl (6.4-8.2)
--- NOTE | 2017-06-16 19:14 | EMERGENCY ROOM VISIT NOTE ---
History First contact with patient: 17:27 Chief Complaint: RIB PAIN Stated Complaint: RIB AND CHEST PAIN, LEFT SIDE History of Present Illness The patient is a 56 year old female who presents to the Emergency Room via private vehicle with complaints of "rib and chest pain, left side". The patient states that earlier today she was standing from a sitting position and notes sudden onset of pain in her left ribs. She states that she has a history of osteoporosis, to a point where she has fractured T9 with simple breathing. She feels that the pain in her left rib similar to that in the back when she fractured it. She notes that she was evaluated earlier today at [facility] and was discharged. She is concerned that she may have a fracture in this region. She also has a history of pulmonary embolism. She rates her current pain as an 8/10. She notes minimal shortness of breath but no chest pain. Review of Systems A complete 6-point Review of Systems was discussed with the patient, with pertinent positives and negatives listed in the History of Present Illness. All remaining Review of Systems questions can be considered negative unless otherwise specified. 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 (16) Microscopic hematuria (17) Osteoporosis (18) Sleep apnea (19) SOB (shortness of breath) (20) Vertebral fracture, closed Surgical Problems: (1) H/O sinus surgery (2) History of bronchoscopy (3) History of carpal tunnel surgery (4) S/P cardiac cath (5) S/P herniorrhaphy (6) Status post appendectomy (7) Status post hernia repair (8) Status post partial colectomy (9) Status post thermoplasty (10) Status post thermoplasty Family History FH: heart disease FATHER FH: sleep apnea MOTHER FHx: cancer FHx: gallbladder disease Hypertension MOTHER Kidney disease MOTHER Social History Smoking Status: Former Smoker Alcohol Use: none Drug Use: none Marital Status: Housing Status: lives with significant other Occupation Status: unemployed Current/Historical Medications Scheduled Cholecalciferol (Vitamin D), 1,000 INTER.UNIT PO BID Citalopram (Citalopram Hydrobromide), 40 MG PO QAM Cyanocobalamin (Vitamin B-12), 1,000 MCG PO QAM Dicyclomine HCl (Dicyclomine HCl), 10 MG PO TID Docusate Sodium (Colace), 200 MG PO HS Ferrous Sulfate (Ferrous Sulfate), 1 TAB PO BID Furosemide (Furosemide), 40 MG PO Q2D Home O2 Therapy (Oxygen), 2 LITERS NA HS Immune Globulin (Human) Iv (Privigen), 1 DOSE IV MONTHLY Pantoprazole (Pantoprazole Sodium), 40 MG PO BID Polyethylene (Miralax), 17 GM PO DAILY Potassium Chloride (Micro-K Ext Rel), 10 MEQ PO Q2D Prednisone (Prednisone), 10 MG PO DAILY Prednisone (Prednisone), 1 TAB PO UD Scheduled PRN Albuterol Hfa (Ventolin Hfa), 2 PUFFS INH Q6H PRN for SOB/Wheezing Cyclobenzaprine HCl (Cyclobenzaprine HCl), 5 MG PO HS PRN for Muscle Spasm Epinephrine (Epipen 2-Deshawn), 0.3 MG IM UD PRN for ALLERGIC REACTION Hydrocodone/Acetaminophen 5MG/325MG (Manly 5MG/325MG), 1-2 TABS PO Q6H PRN for Pain Levalbuterol Hcl (Levalbuterol Hcl), 1.25 MG INH Q4 PRN for SOB/Wheezing Lorazepam (Ativan), 2 MG PO HS PRN for Anxiety Lorazepam (Lorazepam), 1 MG PO DAILY PRN for Anxiety Physical Exam Vital Signs Date Time Temp Pulse Resp B/P (MAP) Pulse Ox O2 Delivery O2 Flow Rate FiO2 06/16/17 19:27 60 18 125/87 99 Room Air 06/16/17 18:36 62 18 157/86 98 Nasal Cannula 2.0 06/16/17 18:34 63 06/16/17 18:02 98 Nasal Cannula 2.0 06/16/17 16:36 36.7 91 16 151/94 93 Room Air Physical Exam VITAL SIGNS - Vital signs and nursing notes were reviewed. Stable. GENERAL -56-year-old female appearing her stated age who is in no acute distress. Communicates well with provider and answers questions appropriately. SKIN - Without rashes. Skin overlying left ribs are unremarkable. HEAD - NC/AT. LUNGS - Chest wall symmetric without accessory muscle use, intercostals retractions, or central cyanosis. Normal vesicular breath sounds CTA B/L. No wheezes, rales, or rhonchi appreciated. Tenderness overlying the left ribs. CARDIAC - RRR with S1/S2. No murmur, rubs, or gallops appreciated. ABDOMEN - Abdominal contour normal without pulsations or visible masses. No abdominal tenderness. Medical Decision & Procedures ER Provider Diagnostic Interpretation: L RIBS UNILATERAL WITH PA CHEST CLINICAL HISTORY: Left rib pain. COMPARISON STUDY: No previous studies for comparison. FINDINGS: The erect chest reveals no pneumothorax. There is a left subclavian A-Port catheter. There is mild elevation left hemidiaphragm. There are left basal airspace opacities, possibly atelectatic. There is equivocal nondisplaced fracture the left ninth rib. IMPRESSION: 1. No evidence of pneumothorax 2. Equivocal nondisplaced fracture the left ninth rib 3. Left basilar opacities, likely atelectatic although an infectious/inflammatory process cannot be excluded 4. Elevation of the right hemidiaphragm Electronically signed by: Jules Lester M.D. 06/16/2017 6:28 PM Dictated Date/Time: 06/16/2017 6:27 PM Laboratory Results 06/16/17 17:55 Red Blood Count 4.78, Mean Corpuscular Volume 86.6, Mean Corpuscular Hemoglobin 27.0, Mean Corpuscular Hemoglobin Concent 31.2, Mean Platelet Volume 10.2, Neutrophils (%) (Auto) 78.2, Lymphocytes (%) (Auto) 14.7, Monocytes (%) (Auto) 5.6, Eosinophils (%) (Auto) 0.5, Basophils (%) (Auto) 0.5, Neutrophils # (Auto) 8.62, Lymphocytes # (Auto) 1.62, Monocytes # (Auto) 0.62, Eosinophils # (Auto) 0.06, Basophils # (Auto) 0.05 06/16/17 17:55 Test 06/16/17 17:55 White Blood Count 11.03 K/uL (4.8-10.8) Red Blood Count 4.78 M/uL (4.2-5.4) Hemoglobin 12.9 g/dL (12.0-16.0) Hematocrit 41.4 % (37-47) Mean Corpuscular Volume 86.6 fL (80-100) Mean Corpuscular Hemoglobin 27.0 pg (25-34) Mean Corpuscular Hemoglobin Concent 31.2 g/dl (32-36) Platelet Count 242 K/uL (130-400) Mean Platelet Volume 10.2 fL (7.4-10.4) Neutrophils (%) (Auto) 78.2 % Lymphocytes (%) (Auto) 14.7 % Monocytes (%) (Auto) 5.6 % Eosinophils (%) (Auto) 0.5 % Basophils (%) (Auto) 0.5 % Neutrophils # (Auto) 8.62 K/uL (1.4-6.5) Lymphocytes # (Auto) 1.62 K/uL (1.2-3.4) Monocytes # (Auto) 0.62 K/uL (0.11-0.59) Eosinophils # (Auto) 0.06 K/uL (0-0.5) Basophils # (Auto) 0.05 K/uL (0-0.2) RDW Standard Deviation 68.7 fL (36.4-46.3) RDW Coefficient of Variation 21.6 % (11.5-14.5) Immature Granulocyte % (Auto) 0.5 % Immature Granulocyte # (Auto) 0.06 K/uL (0.00-0.02) Large Platelets 1+ Hypochromasia PRESENT Anisocytosis PRESENT Prothrombin Time 22.2 SECONDS (9.0-12.0) Prothromb Time International Ratio 2.1 (0.9-1.1) Activated Partial Thromboplast Time 46.3 SECONDS (21.0-31.0) Partial Thromboplastin Ratio 1.8 Anion Gap 5.0 mmol/L (3-11) Est Creatinine Clear Calc Drug Dose 80.1 ml/min Estimated GFR () 85.7 Estimated GFR (Non- 74.0 BUN/Creatinine Ratio 15.7 (10-20) Calcium Level 8.7 mg/dl (8.5-10.1) Total Bilirubin 0.3 mg/dl (0.2-1) Aspartate Amino Transf (AST/SGOT) 10 U/L (15-37) Alanine Aminotransferase (ALT/SGPT) 26 U/L (12-78) Alkaline Phosphatase 46 U/L (45-117) Troponin I < 0.015 ng/ml (0-0.045) Total Protein 6.9 gm/dl (6.4-8.2) Albumin 3.5 gm/dl (3.4-5.0) Globulin 3.4 gm/dl (2.5-4.0) Albumin/Globulin Ratio 1.0 (0.9-2) Medications Administered Medications (Trade) Dose Ordered Sig/Kaye Route Start Time Stop Time Status Last Admin Dose Admin Morphine Sulfate (MoRPHine SULFATE INJ) 4 mg NOW STAT IV 06/16/17 18:36 2 18:37 DC 06/16/17 18:45 4 MG Morphine Sulfate (MoRPHine SULFATE INJ) 4 mg NOW STAT IV 06/16/17 19:12 06/16/17 19:13 DC 06/16/17 19:26 4 MG Heparin Sodium (Porcine) (Heparin 100 Unit/ml 5ml Flush) 5 ml STK-MED ONCE .ROUTE 06/16/17 19:35 06/16/17 19:36 DC 06/16/17 19:37 5 ML Medical Decision Patient was seen and evaluated as above. She presents to us today with left rib pain. This is status post standing from a chair. It is reproducible on exam, and her INR is therapeutic. This is reassuring, and I suspect this likely to be musculoskeletal in nature. X-ray reveals a nondisplaced left sided ninth rib fracture which is exactly where her pain is upon palpation. She was placed on oxygen here as she does chronically use oxygen at home. White blood cell count slightly elevated at 11.3. No concerning anemia. Coags reveal INR 2.1. Patient metabolic panel reveals no evidence of kidney or liver failure. Troponin negative. She was given morphine here for pain. She has Manly at home. She appears stable for outpatient management. Case was discussed with the attending physician. She was educated upon management, educated upon worrisome symptoms which to return, had questions answered prior to discharge, and was discharged home in good condition. In the evaluation and treatment of this patient, the following differential diagnoses were considered: Rib Fracture, Rib Contusion, Hemothorax, Pneumothorax , Pneumonia, Pleural Effusion. Impression Primary Impression: Rib fracture Departure Information Dispostion Home / Self-Care Condition GOOD Referrals Petra Kelly (PCP) Patient Instructions My [facility] Additional Instructions You have been treated in the Emergency Department for Rib pain and fracture. You have received pain medicine in the emergency department which impairs your ability to operate a vehicle. It is illegal for you to drive after receiving these medicines. NORCO for pain (your current prescription) If this is an acute injury, ice can be applied to the area of pain for the first 3 days to help decrease pain and inflammation. After the first 3 days, a heating pad can be used over the area for continued soothing relief. To minimize your discomfort, you can hug a pillow while coughing or sneezing. Additionally, you should continue to force yourself to take nice, deep breaths. Full expansion of the lungs is necessary to prevent the accumulation of fluid in the lung tissue and development of pneumonia. You should schedule a follow-up appointment in 2-3 days with your Primary Care Provider for further evaluation and treatment of your back pain. Please use the Incentive Spirometer several times per hour while awake to help prevent the development of pneumonia. Return to the Emergency Department if your current symptoms worsen despite treatment course outlined above, or if you develop any of the following symptoms : intractable pain despite aforementioned treatment course, development of a wet cough, bloody cough, fever, chills, or increased shortness of breath.
[2017-06-16 19:27] VITALS: BP 125/87; PULSE 60; O2SAT 99
== END 2017-06-16 19:46 | disposition home or self-care (01) ==
LOC: C.EDB 16:31 → C.EDC 19:46
DX: S22.32XA Fracture of one rib, left side, initial encounter for closed fracture (principal); X58.XXXA Exposure to other specified factors, initial encounter; D72.829 Elevated white blood cell count, unspecified; M81.0 Age-related osteoporosis without current pathological fracture; J45.909 Unspecified asthma, uncomplicated; Z86.711 Personal history of pulmonary embolism; Z79.52 Long term (current) use of systemic steroids; Z87.891 Personal history of nicotine dependence; Z99.81 Dependence on supplemental oxygen; Z82.49 Family history of ischemic heart disease and other diseases of the circulatory system; Z83.6 Family history of other diseases of the respiratory system; Z83.79 Family history of other diseases of the digestive system; Z84.1 Family history of disorders of kidney and ureter

== ENCOUNTER 2017-08-06 16:22 | Observation (INO) | payer OTHER ==
[~2017-08-06] VITALS: Ht 165.1 cm; Wt 92.7 kg
[~2017-08-06 16:22] MED LIST changes: -ATV1 PO; -CITA40TA4 PO; -CYAN10005 PO; -DOCU-94 PO
[2017-08-06] MEDS ORDERED: CITA40TA4 PO (16:49)
[2017-08-06] MEDS ORDERED: DOCU-94 PO (17:39)
[2017-08-06] MEDS ORDERED: METHYLPREDNISOLONE 125 MG VIAL ONE (18:51)
[2017-08-06] MEDS ORDERED: DiphenhydrAMINE HCL 50 MG/ML VIAL ONE (18:51)
[2017-08-06] MEDS ORDERED: HYDROCODONE/ACETAMIN 5/325MG TAB ONE (18:51)
[2017-08-06] MEDS ORDERED: ALBUT/IPRATROP 3MG/0.5MG NEB 3 ML VIAL ONE ×2 (18:51→21:51)
[2017-08-06] MEDS ORDERED: FAMOTIDINE 20MG/5ML IV PUSH IV ONE (18:52)
[2017-08-06 18:55] LABS: BASO % 0.4 %; BASO ABS # 0.05 K/uL (0-0.2); EOS % 0.1 %; EOS ABS # 0.01 K/uL (0-0.5); HEMOGLOBIN 11.7 g/dL (12.0-16.0); IG# 0.04 K/uL (0.00-0.02); LYMPH % 7.6 %; LYMPH ABS # 0.91 K/uL (1.2-3.4); MEAN CELL VOLUME 85.8 fL (80-100); MEAN CORPUSCULAR HEMOGLOBIN 27.1 pg (25-34); MEAN CORPUSCULAR HGB CONC 31.6 g/dl (32-36); MEAN PLATELET VOLUME 10.3 fL (7.4-10.4); MONO % 1.8 %; MONO ABS # 0.22 K/uL (0.11-0.59); NEUT % 89.8 %; NEUT ABS # 10.77 K/uL (1.4-6.5); PLATELET COUNT 218 K/uL (130-400); RED CELL DISTRIBUTION WIDTH SD 50.5 fL (36.4-46.3)
[2017-08-06] MEDS ORDERED: CYAN10005 PO (19:15)
[2017-08-06 19:25] LABS: ALBUMIN 3.1 gm/dl (3.4-5.0); ALT/SGPT 22 U/L (12-78); AST/SGOT 11 U/L (15-37); BLOOD UREA NITROGEN 14 mg/dl (7-18); CALCIUM 8.8 mg/dl (8.5-10.1); CARBON DIOXIDE 28 mmol/L (21-32); CREATININE 0.89 mg/dl (0.60-1.20); GLUCOSE 116 mg/dl (70-99); POTASSIUM 4.1 mmol/L (3.5-5.1); SODIUM 137 mmol/L (136-145)
[2017-08-06 19:29] LABS: ALKALINE PHOSPHATASE 49 U/L (45-117)
[2017-08-06] MEDS ORDERED: ATV1 PO (20:38)
[2017-08-06] MEDS ORDERED: WARF-246 PO ×2 (22:45)
[2017-08-06] MEDS ORDERED: HYDR-4313 PO (22:45)
[2017-08-06] MEDS ORDERED: OMEP20CA9 PO (22:46)
[2017-08-06] MEDS ORDERED: LORA1TAB13 PO (22:49)
[2017-08-06] MEDS ORDERED: POLY335025 PO (22:49)
[2017-08-06] MEDS ORDERED: OXGN (22:54)
[2017-08-06] MEDS ORDERED: LEVA1.258 NEB (22:54)
[2017-08-06] MEDS ORDERED: HYDROCODONE/ACETAMIN 5/325MG TAB PO ONE (22:57)
[2017-08-06] MEDS ORDERED: LORAZEPAM 1 MG TAB PO PRN (23:00)
[2017-08-06] MEDS ORDERED: SODIUM CHLORIDE 0.9% 1000ML 1,000 ML IV SCH (23:00)
[2017-08-06] MEDS ORDERED: ACETAMINOPHEN 325 MG TAB PO PRN (23:00)
[2017-08-06] MEDS ORDERED: LEVALBUTEROL/IPRATROPIUM NEB INH PRN (23:00)
[2017-08-06 23:08] LABS: INR 3.4 (0.9-1.1)
[2017-08-06 23:41] VITALS: BP 143/87; PULSE 77; TEMP 36.8; O2SAT 96; Ht 165.1 cm; Wt 92.7 kg
[2017-08-06 23:54] LABS: PTT PATIENT 56.6 SECONDS (21.0-31.0)
[2017-08-06 23:56] LABS: LIPASE 136 U/L (73-393)
[2017-08-07] VITALS (8 sets, daily range): BP systolic 116–133; BP diastolic 73–78; PULSE 60–78; TEMP 36.5–36.8; O2SAT 96–98
--- NOTE | 2017-08-07 00:16 | HISTORY & PHYSICAL EXAMINATION ---
DATE OF ADMISSION: 08/06/2017 PRIMARY CARE PHYSICIAN: CRISTOPHER Noguera. CHIEF COMPLAINT: Sent by lung specialist. HISTORY OF PRESENT ILLNESS: History obtained from patient and records. Medical history significant for steroid-dependent COPD/asthma, XIAO on CPAP, GERD, hypogammaglobulinemia, history of PE on Coumadin, mood disorder, past tobacco abuse, chronic anemia (baseline hemoglobin 10-11), chronic back pain secondary to thoracic compression fractures Recent confinement [facility] 2 weeks ago for asthma exacerbation. Patient seen at [employer] office today. Patient complaining of left-sided chest tightness, more shortness of breath than usual, no cough symptoms - usual asthma exacerbation without cough symptoms as per patient. Sent by [employer] in the ER for evaluation, possible PE study. CT chest initial read, no PE. At the ER, received Solu-Medrol, DuoNebs for possible asthma exacerbation. Patient is still uncomfortable asking for medication stronger than Vicodin for her mid back pain which according to her gets worse from asthma attack. As per patient, "I'll just be back at the ER in 2 days 2 days if I go home now. " MEDICAL HISTORY: As above. SURGERIES: She has had colectomy, carpal tunnel, hernia surgery, appendectomy, sinus surgery. HOME MEDICATIONS: Include Vicodin, albuterol, furosemide, prednisone 20 mg daily, polyethylene glycol, potassium chloride, Coumadin, home O2 as needed. ALLERGIES: ASPIRIN, GABAPENTIN, IBUPROFEN, DYE, LEVOFLOXACIN, PREGABALIN, ZOLPIDEM. FAMILY HISTORY: Heart disease, sleep apnea, hypertension, kidney disease. PERSONAL AND SOCIAL HISTORY: Past tobacco use, no chronic intake of alcoholic beverages. Disabled. REVIEW OF SYSTEMS: As per HPI. All 10 systems reviewed. All other ROS negative. PHYSICAL EXAMINATION: VITAL SIGNS: Blood pressure was noted to be 157/92, pulse rate 70, RR 20, temperature 36.9, sats 97 on 2 liters later 94 on room air. GENERAL: Noted to be obese, comfortable, no respiratory distress. Cushingoid. SKIN: Pallor, warm. HEENT : pale palpebral conjunctivae, no ptosis, moist buccal mucosa NECK: Short, nontender. CHEST: Decreased effort. No wheezes. HEART: Regular rate and rhythm, no murmur. ABDOMEN: Some distention, nontender. EXTREMITIES: No edema, no gross deformities, no tenderness. NEUROLOGIC: Coherent. No gross focality. LABORATORY DATA: Hemoglobin was noted to be 11.7, hematocrit 37, white cell count 12, platelets noted to be 218. Sodium 137, potassium 4.1, chloride 103, CO2 28, creatinine 1, glucose 116. LFTs normal. Troponin 0.015. CT chest initial read, no PE. EKG as per my interpretation rate 60, NSR, no ischemia ASSESSMENT: 1. Shortness of breath, chest pain possible asthma exacerbation. Atypical symptoms of asthma exacerbation as per patient (No cough, no wheezing symptoms) No pulmonary embolism on initial CT read. 2. History of pulmonary embolism on Coumadin. INR is still pending. 3. Steroid-dependent chronic obstructive pulmonary disease. 4. Chronic back pain. 5. Hypertension, slightly elevated. 6. Chronic anemia, hemoglobin baseline. 7. Past tobacco abuse. PLAN: Observation [facility] RTC, p.r.n. Continue home prednisone course. Further eval/management of symptoms as per Pulmonology (Dr. Kim). Possible bronchoscopy as per patient. judicious narcotic use - note of multiple admissions in the past for asthma exacerbation where patient would complain of worsening chronic back pain as part of her asthma attack leading to incessant requests for stronger narcotics by patient. DVT prophylaxis, Coumadin, INR 2-3. Full code. MTDD
--- NOTE | 2017-08-07 00:18 | EMERGENCY ROOM VISIT NOTE ---
History Report prepared by Jean-Pierre: Annie Lott Under the Supervision of: Dr. Benny Tucker M.D. First contact with patient: 19:14 Chief Complaint: RESPIRATORY PROBLEMS Stated Complaint: ASTHMA, TIGHT CHEST- REFERRED Nursing Triage Summary: patient referred by Dr. Kim for "CT for PE's", states "I just saw him, have been having worsening tightness in my chest. I need to be pre-treated before my scans." History of Present Illness The patient is a 56 year old female who presents to the Emergency Room with complaints of persistent chest tightness over the past week. The patient has a history of asthma. She was sent to the ED by Dr. Kim for a chest CT over concerns of the blood clot. He was concerned because he did not hear any wheezing and the patient has a history of blood clots. She is on warfarin. She has been getting SOB with minimal exertion. She does not identify anything else that improves or worsens her symptoms. She also reports increased fluid retention recently. She has gained 3 lbs. She is on Lasix. She is on prednisone daily. She wears 2 liters of oxygen at all times. She has a history of osteoporosis. She denies any history of heart failure. Pt denies LOC, headache, fevers, chills, diaphoresis, visual changes, neck pain, chest pain, nausea, vomiting, abdominal pain, back pain, melena, hematochezia, urinary symptoms, numbness, weakness, lymphadenopathy, rash, or other complaints. Source of History: patient Onset: past week Position: chest Quality: other (tightness) Timing: other (persistent) Modifying Factors (Worsening): exertion Associated Symptoms: + SOB Review of Systems See HPI for pertinent positives and negatives. A total of ten systems were reviewed and were otherwise negative. 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 (16) Microscopic hematuria (17) Osteoporosis (18) Sleep apnea (19) SOB (shortness of breath) (20) Vertebral fracture, closed Surgical Problems: (1) H/O sinus surgery (2) History of bronchoscopy (3) History of carpal tunnel surgery (4) S/P cardiac cath (5) S/P herniorrhaphy (6) Status post appendectomy (7) Status post hernia repair (8) Status post partial colectomy (9) Status post thermoplasty (10) Status post thermoplasty Family History FH: heart disease FATHER FH: sleep apnea MOTHER FHx: cancer FHx: gallbladder disease Hypertension MOTHER Kidney disease MOTHER Social History Smoking Status: Former Smoker Alcohol Use: none Drug Use: none Marital Status: Housing Status: lives with significant other Occupation Status: unemployed Current/Historical Medications Scheduled Cholecalciferol (Vitamin D), 1,000 INTER.UNIT PO BID Citalopram (Citalopram Hydrobromide), 40 MG PO QAM Cyanocobalamin (Vitamin B-12), 1,000 MCG PO QAM Docusate Sodium (Colace), 200 MG PO HS Furosemide (Furosemide), 40 MG PO DAILY Home O2 Therapy (Oxygen), 2 LITERS NA UD Immune Globulin (Human) Iv (Privigen), 1 DOSE IV MONTHLY Lorazepam (Lorazepam), 2 MG PO HS Omeprazole (Prilosec), 20 MG PO BID Potassium Chloride (Micro-K Ext Rel), 10 MEQ PO TID Prednisone (Prednisone), 20 MG PO DAILY Warfarin Sodium (Warfarin Sodium), 5 MG PO 4XWK Warfarin Sodium (Warfarin Sodium), 7.5 MG PO 3XWK Scheduled PRN Acetaminophen/Hydrocodone (Hydrocodone/Acetaminophen 5-325 mg), 1 TAB PO Q6H PRN for Pain Albuterol Hfa (Ventolin Hfa), 2 PUFFS INH Q6H PRN for SOB/Wheezing Epinephrine (Epipen 2-Deshawn), 0.3 MG IM UD PRN for ALLERGIC REACTION Levalbuterol Hcl (Levalbuterol Hcl), 1.25 MG NEB Q4H PRN for SOB/Wheezing Lorazepam (Lorazepam), 1 MG PO DAILY PRN for Anxiety Polyethylene Glycol 3350 (Miralax), 17 GM PO DAILY PRN for Constipation Allergies Coded Allergies: Aspirin (Verified Allergy, Intermediate, HIVES, 10/29/16) Ibuprofen (Verified Allergy, Intermediate, HIVES, 10/29/16) Levofloxacin (Verified Allergy, Intermediate, HIVES, 10/29/16) Iodinated Diagnostic Agents (Verified Allergy, Unknown, HIVES, 10/29/16) Pregabalin (Verified Adverse Reaction, Intermediate, SEVERE DEPRESSION, ) Zolpidem (Verified Adverse Reaction, Intermediate, HALLUCINATIONS, 10/29/16 ) Gabapentin (Verified Adverse Reaction, Mild, GOOFY THOUGHTS, 10/29/16) Physical Exam Vital Signs Date Time Temp Pulse Resp B/P (MAP) Pulse Ox O2 Delivery O2 Flow Rate FiO2 08/06/17 16:38 96 Nasal Cannula 2.0 08/06/17 16:38 36.9 67 20 157/92 97 Nasal Cannula 2.0 Physical Exam GENERAL: Awake, alert, mildly dyspneic-appearing, in no distress HENT: Normocephalic, atraumatic. Oropharynx unremarkable. EYES: Normal conjunctiva. Sclera non-icteric. NECK: Supple. No nuchal rigidity. FROM. No masses. RESPIRATORY: Clear to auscultation. Expiratory wheezes on the right side. No rales. Normal respiratory effort. CARDIAC: Normal rate. Normal rhythm. No murmurs. No rubs. Extremities warm and well perfused. Pulses equal. No JVD. GI: Soft, non-distended. No tenderness to palpation. No rebound or guarding. No masses. RECTAL: Deferred. MUSCULOSKELETAL: Atraumatic. Chest examination reveals no tenderness. The back is symmetrical on inspection without obvious abnormality. There is no CVA tenderness to palpation. No joint edema. LOWER EXTREMITIES: Calves are equal size bilaterally and non-tender. No edema. No discoloration. NEURO: Normal sensorium. No sensory or motor deficits noted. SKIN: No rash or jaundice noted. Medical Decision & Procedures ER Provider Diagnostic Interpretation: Radiology results as stated below per my review and radiologist interpretation: Imaging studies: Chest x-ray. Findings: A chest x-ray was performed and revealed no pneumothorax, effusion, infiltrate, free air under the diaphragm, or wide mediastinum. Impression: Minimal pulmonary edema. Laboratory Results 08/06/17 18:42 Red Blood Count 4.31, Mean Corpuscular Volume 85.8, Mean Corpuscular Hemoglobin 27.1, Mean Corpuscular Hemoglobin Concent 31.6, Mean Platelet Volume 10.3, Neutrophils (%) (Auto) 89.8, Lymphocytes (%) (Auto) 7.6, Monocytes (%) (Auto) 1.8, Eosinophils (%) (Auto) 0.1, Basophils (%) (Auto) 0.4, Neutrophils # (Auto) 10.77, Lymphocytes # (Auto) 0.91, Monocytes # (Auto) 0.22, Eosinophils # (Auto) 0.01, Basophils # (Auto) 0.05 08/06/17 18:42 Test 08/06/17 18:42 White Blood Count 12.00 K/uL (4.8-10.8) Red Blood Count 4.31 M/uL (4.2-5.4) Hemoglobin 11.7 g/dL (12.0-16.0) Hematocrit 37.0 % (37-47) Mean Corpuscular Volume 85.8 fL (80-100) Mean Corpuscular Hemoglobin 27.1 pg (25-34) Mean Corpuscular Hemoglobin Concent 31.6 g/dl (32-36) Platelet Count 218 K/uL (130-400) Mean Platelet Volume 10.3 fL (7.4-10.4) Neutrophils (%) (Auto) 89.8 % Lymphocytes (%) (Auto) 7.6 % Monocytes (%) (Auto) 1.8 % Eosinophils (%) (Auto) 0.1 % Basophils (%) (Auto) 0.4 % Neutrophils # (Auto) 10.77 K/uL (1.4-6.5) Lymphocytes # (Auto) 0.91 K/uL (1.2-3.4) Monocytes # (Auto) 0.22 K/uL (0.11-0.59) Eosinophils # (Auto) 0.01 K/uL (0-0.5) Basophils # (Auto) 0.05 K/uL (0-0.2) RDW Standard Deviation 50.5 fL (36.4-46.3) RDW Coefficient of Variation 16.0 % (11.5-14.5) Immature Granulocyte % (Auto) 0.3 % Immature Granulocyte # (Auto) 0.04 K/uL (0.00-0.02) Prothrombin Time 35.1 SECONDS (9.0-12.0) Prothromb Time International Ratio 3.4 (0.9-1.1) Activated Partial Thromboplast Time 56.6 SECONDS (21.0-31.0) Partial Thromboplastin Ratio 2.2 Anion Gap 6.0 mmol/L (3-11) Est Creatinine Clear Calc Drug Dose 78.6 ml/min Estimated GFR () 83.4 Estimated GFR (Non- 71.9 BUN/Creatinine Ratio 15.3 (10-20) Calcium Level 8.8 mg/dl (8.5-10.1) Magnesium Level 2.1 mg/dl (1.8-2.4) Total Bilirubin 0.2 mg/dl (0.2-1) Aspartate Amino Transf (AST/SGOT) 11 U/L (15-37) Alanine Aminotransferase (ALT/SGPT) 22 U/L (12-78) Alkaline Phosphatase 49 U/L (45-117) Troponin I < 0.015 ng/ml (0-0.045) Total Protein 7.0 gm/dl (6.4-8.2) Albumin 3.1 gm/dl (3.4-5.0) Globulin 3.9 gm/dl (2.5-4.0) Albumin/Globulin Ratio 0.8 (0.9-2) Lipase 136 U/L (73-393) Laboratory results reviewed by me ECG Per My Interpretation Indication: SOB/dyspnea Rate (beats per minute): 58 Rhythm: sinus bradycardia Findings: no acute ischemic change, no ectopy, other (normal intervals) ED Course 1811: The patient was evaluated in room C8. A complete history and physical exam was performed. 1850: Solu-Medrol IV 125 mg IV, Benadryl Inj 50 mg IV, Duoneb 3 ml INH, [place] 5/ 325 1 tab PO. 1851: Famotidine 20 mg IV. 1955: I reevaluated the patient. She is feeling the same. We are waiting on the creatinine. 2144: Upon reexamination, the patient was resting comfortably. I discussed the test results and treatment plan with her. The patient will be evaluated for further management. 2150: Duoneb 3 ml INH. 2206: I [facility] the patient[facility] The patient will be evaluated for further treatment and disposition. Medical Decision Triage Nursing notes reviewed. The patient's presentation and history were concerning for SOB. Etiologies such as pneumonia, COPD, reactive airway disease, CHF, cardiac ischemia, pulmonary embolism, pneumothorax, musculoskeletal, infections, gastrointestinal, as well as others were entertained. Patient was evaluated. She was having increased respiratory effort and wheezing. The patient was given a DuoNeb and Solu-Medrol IV. An hour-long treatment was then ordered. Chest imaging did not reveal any evidence of pneumonia. The patient had unremarkable laboratory studies. EKG did not reveal any acute findings. The patient was requiring supplemental oxygen. She had tachycardia. She symptomatically felt much better after the above treatment. Given the situation further management in the hospital will be necessary. Consultation was made with internal medicine. Patient was evaluated in the ER for further management. Medication Reconcilliation Current Medication List: was personally reviewed by me Blood Pressure Screening Patient's blood pressure: Elevated blood pressure Referred to hospitalist. Consults Time Called: 2205 Consulting Physician: Dr. Salas [facility] hospitalist Returned Call: 2206 Discussed the patient's case. The patient will be evaluated for further treatment and disposition. Impression Primary Impression: SOB (shortness of breath) Additional Impressions: Reactive airway disease Failure of outpatient treatment Scribe Attestation The scribe's documentation has been prepared under my direction and personally reviewed by me in its entirety. I confirm that the note above accurately reflects all work, treatment, procedures, and medical decision making performed by me. Departure Information Dispostion Being Evaluated By Hospitalist Referrals Petra Kelly (PCP) Patient Instructions [facility] Problem Qualifiers
[2017-08-07] MEDS ORDERED: IPRATROPIUM BROMIDE NEB SOLN 0.02% 2.5 ML VIAL INH PRN ×2 (00:30→11:15)
[2017-08-07] MEDS ORDERED: LEVALBUTEROL 1.25MG/0.5ML NEB INH PRN ×2 (00:30→11:15)
[2017-08-07] MEDS: HYDROCODONE/ACETAMIN 5/325MG TAB PO PRN ×4 (01:20→21:30)
[2017-08-07] MEDS: LEVALBUTEROL 1.25MG/0.5ML NEB INH SCH ×5 (01:45→19:35)
[2017-08-07] MEDS: IPRATROPIUM BROMIDE NEB SOLN 0.02% 2.5 ML VIAL INH SCH ×5 (01:45→19:35)
[2017-08-07] MEDS ORDERED: LEVALBUTEROL/IPRATROPIUM NEB INH SCH (03:00)
[2017-08-07] MEDS: TRAMADOL HCL 50 MG TAB PO PRN ×2 (04:35→17:19)
[2017-08-07] MEDS: CITALOPRAM 40 MG TAB PO SCH (07:50)
[2017-08-07] MEDS: PANTOprazole SOD 40 MG TAB PO SCH ×2 (07:50→20:15)
[2017-08-07 08:25] LABS: BASO % 0.1 %; BASO ABS # 0.01 K/uL (0-0.2); HEMATOCRIT 37.2 % (37-47); HEMOGLOBIN 11.5 g/dL (12.0-16.0); IG# 0.02 K/uL (0.00-0.02); LYMPH % 10.1 %; LYMPH ABS # 0.93 K/uL (1.2-3.4); MEAN CELL VOLUME 86.3 fL (80-100); MEAN CORPUSCULAR HEMOGLOBIN 26.7 pg (25-34); MEAN CORPUSCULAR HGB CONC 30.9 g/dl (32-36); MEAN PLATELET VOLUME 10.8 fL (7.4-10.4); MONO % 3.9 %; MONO ABS # 0.36 K/uL (0.11-0.59); NEUT % 85.7 %; PLATELET COUNT 218 K/uL (130-400); RED CELL DISTRIBUTION WIDTH SD 49.7 fL (36.4-46.3); WHITE BLOOD COUNT 9.22 K/uL (4.8-10.8)
[2017-08-07 08:33] LABS: INR 2.5 (0.9-1.1)
--- NOTE | 2017-08-07 08:53 | DIAGNOSTIC IMAGING REPORT ---
CT ANGIOGRAM OF THE CHEST CLINICAL HISTORY: Dyspnea. COMPARISON STUDY: Chest CT scans dated 04/08/2017 and 05/08/2015. Chest x-ray dated 04/11/2017. TECHNIQUE: Following the IV administration of 103 cc of Optiray 320, CT angiogram of the chest was performed from the upper abdomen to the thoracic inlet utilizing the pulmonary embolus protocol. Images are reviewed in the axial, sagittal, and coronal planes. 3-D MIPS images are created and assessed. IV contrast was administered without complication. A dose lowering technique was utilized adhering to the principles of ALARA. FINDINGS: Thyroid: Imaged portions of the thyroid gland are normal in size and attenuation. Thoracic aorta: There is mild atherosclerotic calcification of the thoracic aorta, which is normal in caliber and demonstrates standard 3-vessel arch anatomy. No dissection is seen. A left subclavian central venous infusion port is in place. Pulmonary vasculature: The pulmonary trunk is normal in caliber. There are no filling defects identified in main, lobar, or segmental pulmonary branches to suggest pulmonary embolus. Heart: The heart is normal in size and configuration, and without pericardial effusion. Lungs and pleural spaces: Mild emphysematous change is noted. Small fat-containing Bochdalek hernias are present at both lung bases. No airspace consolidation or pleural effusion is identified. There is bibasilar scarring versus atelectasis. The trachea and central airways are clear. Mediastinum: There is no mediastinal lymphadenopathy. Brittany: Clear. Axillae: There is no axillary lymphadenopathy. Upper abdomen: Cholecystectomy clips are noted. A tiny hiatal hernia is identified. Partially visualized upper abdominal viscera is otherwise within normal limits. Skeletal structures: The skeletal structures are osteopenic. No lytic or blastic bony lesions are seen. There are healed left-sided rib fractures. There are chronic compression deformities of T9 and T11. IMPRESSION: 1. There is no evidence of pulmonary embolus in the main, lobar, or segmental pulmonary arteries. 2. Mild emphysema. 3. There is no airspace consolidation or pleural effusion. Electronically signed by: Nathanael Rtuherford M.D. 08/07/2017 8:52 AM Dictated Date/Time: 08/07/2017 8:46 AM
--- NOTE | 2017-08-07 11:56 | PULMONARY PROGRESS NOTE ---
DATE: 08/07/2017 REASON FOR CONSULTATION: Shortness of breath. HISTORY OF PRESENT ILLNESS: The patient is a 56-year-old female who is well known to us at our outpatient office and is followed for a steroid-dependent asthma and COPD. She also has history of obstructive sleep apnea and is on CPAP. She also has history of hypogammaglobulinemia and is on IgG replacement which started in 2014. She also has a history of PE several years ago. The patient has had multiple hospitalizations over the past year including 7 admissions to [facility] in the past year as well as 2 observation stays and 3 ER visits with her last hospitalization at [facility] being 04/13/2017 for a left-sided wall pain. She also was recently admitted to [facility] in [place]. She was admitted from July 18 through July 22 and was diagnosed with an asthma exacerbation. The patient reports that during hospitalization, she felt a little bit better upon discharge but did not feel as well as she typically does upon discharge from the hospital. She ended up having multiple labs and chest x-ray done with no evidence of pneumonia. The patient did see Dr. Kim in our clinic on July 23 for hospital followup. At that time, she was having some increased breath sounds, which were adventitious breath sounds. Because of this, she was advised to finish out her antibiotic, which was doxycycline and continue prednisone taper down to 20 mg a day, and he was going to followup her in 2 weeks. The patient was subsequently seen by Dr. Kim yesterday at which time she felt that her breathing was worse. She felt her chest was tighter, her chest was more heavy, she had difficulty moving air, she also had some fairly significantly increased left-sided chest tenderness and discomfort. Because of this and her remote history of pulmonary embolism in 2010, she was advised to go over the hospital for a CT angiogram of the chest. Unfortunately, the patient does have ALLERGY TO CONTRAST MEDIA, so she need to be pretreated. Upon having that, according to the patient, the physician asked her how she was feeling and she was actually feeling a little bit worse, so she was routed through the ER for admission. In the ER, the patient did have a chest x-ray which was unremarkable. Labs showed a white count of 12,000, H&H of 11.7 and 37.0. The patient did receive Solu-Medrol injection 125 mg, also received 50 mg of Benadryl and she had a DuoNeb nebulizer treatment. She was also given Ensign for the pain in her back. She was also requiring supplemental oxygen at her normal 2 liters per minute. The patient did not show significant improvement, so hospice was contacted and it was elected to admit her. The patient reports today that she really feels significantly better. She has not had any further steroids since getting the 125 of Solu-Medrol in the ER and prednisone 20 mg was ordered. She has been receiving a nebulizer treatment. As far as symptoms, the patient reports that her chest feels tight and heavy, she has a left-sided chest discomfort, she is wheezing, she has not really had a significant cough but when she does it is basically nonproductive and she does feel more short of breath. When she presented to the outpatient office yesterday, she normally does peak flows and her normal peak flow when she is stable is around 220-250, in the office yesterday was right around 100. She did end up having the CT angiogram done and there was no evidence of pulmonary embolism and no evidence of any consolidation. The patient reports that she has not really had any significant fever or chills, no sweats. Denies any sore throat or headache. Denies any sinus symptoms. She has not had any GI symptoms. No nausea or vomiting, no indigestion or heartburn. No diarrhea. Bowels are moving as per her normal. She is not having any difficulty with swallowing with eating or drinking. She denies any coughing or choking when she eats or drinks. She states that her appetite is normal. She states that she is voiding well. No difficulty with her voiding. She denies any significant numbness, tingling or weakness in her extremities. She does describe a tenderness in her left leg anteriorly along the bone that has been there for a while. She is having a lot of back pain. She does have a history of a T9 and T11 compression fracture. She also has a history of a left 9th rib fracture, this was diagnosed several months ago. When discussing this with her, the patient states that she did see a pain clinic in [place] and they tried her with both Lyrica and gabapentin, but these had to be stopped due to side effects. Of note also is that prior to her admission at [place] on July 18 the patient had tried to completely stop her prednisone. The patient has been on low dose prednisone, approximately 10 mg for several years. Unfortunately, she took it upon herself to try and stop the prednisone completely. When this happened, she had significant edema, she had a 9-pound weight gain. She had significant lower extremity edema. Apparently, this was addressed while she was in hospital in [place]. The patient does have a significant pulmonary history. Last PFT was October of 2014, which showed a forced vital capacity of 1.86 liters which is 55% of predicted, an FEV1 of 1.02 liters which is 38% of predicted and FEV1 to FVC ratio 69% of predicted. She did have about 20% improvement with bronchodilatation with her forced vital capacity going to 2.27 liters which is 67% predicted and her FEV1 increasing to 1.3 liters which is 48% predicted. She also had a sleep study done in February 2016, which did show obstructive sleep apnea with recommendation for a CPAP set at 11 cm of water. Regarding her pulmonary history, the patient is a former patient of Dr. Bautista. The patient was followed by Dr. Bautista for several years due to her significant breathing difficulties. Of note, with that, the patient was born 3 months premature and had breathing problems as a child into adult years. Subsequently, Dr. Bautista did do bronchial thermoplasty of the patient with her first treatment being 03/18/2014, her second treatment being 04/13/2014 and third treatment being 05/27/2014. The patient tolerated the procedures well and did well for several years following this; however, over the past 1-2 years, her breathing has regressed and unfortunately she has deteriorated back to the point almost where she was prior to the procedure. During that time period, she also was found to be hypogammaglobulinemic and was started on Hizentra in 2014. She has continued with IgG replacement. The patient also has a history of pulmonary embolism in 2010. In regards to the pulmonary embolism, she also had pulmonary infarction in 2010. She is also a heterozygous for alpha 1 antitrypsin deficiency. She does have a significant smoking history, having smoked approximately a pack a day for 30 years and quitting in 2003. Her last bronchoscopy prior records was August of 2015. PAST MEDICAL HISTORY: Includes COPD which is steroid dependent, history of intrinsic asthma, obstructive sleep apnea on CPAP with recommended setting of 11 cm of water, gastroesophageal reflux disease; hypogammaglobulinemia, which was diagnosed in 2014; history of pulmonary embolism, diagnosed in 2010; anxiety, depression; history of tobacco use, having quit in 2003; chronic anemia, chronic back pain, compression fracture at T9 and T11, hyperlipidemia, and osteoporosis. PAST SURGICAL HISTORY: Includes a colectomy, carpal tunnel surgery, herniorrhaphy, appendectomy, sinus surgery and bronchial thermoplasty on the dates of 03/18/2014, 04/13/2014 and 05/27/2014. FAMILY HISTORY: Includes coronary artery disease, obstructive sleep apnea, hypertension, and chronic kidney disease. SOCIAL HISTORY: The patient has a history of tobacco use, 1 pack a day for approximately 30 years, having quit in 2003. No alcohol use. The patient is currently disabled due to her breathing. CURRENT PULMONARY MEDICATIONS: These are hospital medications include prednisone 20 mg daily, Atrovent and Xopenex 1.25 mg q. 6 hours routinely and q. 4 hours as needed. HOME MEDICATIONS: Include albuterol via nebulizer q. 4-6 hours as needed, Ativan 1 mg 1 tablet every morning and 2 tablets at bedtime, Breo 100 one puff daily, citalopram 40 mg daily, Brovana 15 mcg via nebulizer twice daily, EpiPen as needed, furosemide 40 mg daily, ipratropium bromide via nebulizer q. 4 hours as needed, omeprazole 20 mg 2 capsules daily, Percocet 5/325 one tablet every 4 hours as needed, potassium chloride 10 mEq daily; Privigen 1 10 grams per 100 mL, the patient is to be at 30 grams per 300 mL IV solution every month; Ventolin HFA 2 puffs q. 4 hours as needed, vitamin B12 1000 mcg orally daily, and warfarin sodium as directed. ALLERGIES: ASPIRIN, GABAPENTIN, IBUPROFEN, IODINE CONTRAST MEDIA, LEVOFLOXACIN, LYRICA, AND ZOLPIDEM. REVIEW OF SYSTEMS: As above, are otherwise unremarkable. PHYSICAL EXAMINATION: GENERAL: The patient is a 56-year-old female, lying in bed. She is alert and oriented x3. Mood is good. Affect is good. She is able to complete sentences without becoming dyspneic. No acute distress. VITAL SIGNS: Temperature 36.5, pulse 60, respirations 18, blood pressure is 133/78, and pulse ox is 96% on 2 liters. HEENT: Normocephalic, atraumatic. Pupils equal, round react to light and accommodation. Extraocular movements are intact. The patient does have a subconjunctival hemorrhage in the left eye in the inferior medial quadrant. [place] moist gingival and buccal mucosa. NECK: Short, thick, no mass, no adenopathy, no bruit noted. No tenderness. CHEST: Diminished breath sounds. The patient does have a few coarse wheezes throughout, some of which clear with forced cough. No rale or rhonchi noted. CARDIOVASCULAR: Regular rate and rhythm. There are no murmurs, gallops or rubs. ABDOMEN: Bowel sounds are present. Abdomen is soft, nontender. No guarding, rigidity or organomegaly. EXTREMITIES: Left leg - the patient has an area of tenderness to palpation in mid shaft of the tibia medially. There are no visible abnormalities noted. No erythema or edema at this time. No cyanosis or clubbing noted. NEUROLOGIC: Cranial nerves II through XII are intact. No focal deficit noted. LABORATORY DATA: Shows a white count of 9000, H&H 11.5 and 37.2, platelet count of 218,000. INR today is 2.5. Renal panel done in the ER yesterday is unremarkable. IMAGING DATA: CT angiogram of the chest shows no evidence of pulmonary embolism, mild emphysematous changes, no evidence for pneumonia. IMPRESSION: 1. Dyspnea, question if this is secondary to chronic obstructive pulmonary disease exacerbation. She does have wheezing. No cough but does have a significant amount of chest heaviness and tightness and decreased peak flow. At this point, will make some adjustments in her medication including switching her from prednisone to Solu-Medrol as well as changing her nebulization q. 4 hours. 2. Chronic obstructive pulmonary disease which is oxygen and steroid dependent, may be exacerbation. 3. History of PE. The patient is on Coumadin. Her Coumadin is therapeutic. She did have a CT angiogram with no evidence of recurrent PE. 4. Multiple fractures including compression fracture T9 and T11 as well as a left 9th rib fracture. I suspect that the patient is osteoporotic from longstanding prednisone use and a question if she may actually have another compression fracture. According to the patient and from what I can find in the chart, she has not had any focused imaging on her spine recently, so will get spine x-ray. May need to consult pain management for help in controlling the pain. 5. Obstructive sleep apnea. The patient is to continue CPAP, as per her settings from home. The patient may bring her machine from home if possible. PLAN: At this point is to I am going to check a prolactin and a lactic acid level, also going to check an ABG to see if she is retaining CO2. With a change her nebulizer to q. 4 hours, institute more aggressive pulmonary toilet with a flutter valve and incentive spirometry and I am going to order a spine x-ray for the thoracic and lumbar spine. I would like her peak flows done twice daily. With her recent episode of fluid retention and weight gain, will order a BNP, may need to consider an echocardiogram. I am going to stop her prednisone and start her on Solu-Medrol probably 40 mg t.i.d. for today and then wean quickly if possible. We will reevaluate the patient tomorrow. NACHO
[2017-08-07] MEDS ORDERED: METHYLPREDNISOLONE IV 40 MG in SYRINGE 0 ML IV ONE (12:00)
--- NOTE | 2017-08-07 14:13 | DIAGNOSTIC IMAGING REPORT ---
LUMBAR SPINE 3 VIEWS CLINICAL HISTORY: Thoracic compression fractures. FINDINGS: AP, lateral, and coned-down views of the lumbar spine are compared to study dated 04/12/2016 and correlated with lumbar spine CT dated 10/18/2016. The skeletal structures are osteopenic. There is no radiographic evidence of fracture or malalignment involving the lumbar spine. Vertebral body height and alignment are maintained throughout the lumbar spine. The transverse and spinous processes appear intact. Tiny anterior osteophytes are seen throughout. Mild facet arthropathy is seen in the lower lumbar region. The disc spaces are preserved. The visualized sacrum and bony pelvis appear intact. Excreted contrast is present within the bladder. Surgical clips are scattered throughout the abdomen and there is suture material in the pelvis. No bowel obstruction is seen. There is advanced atherosclerotic calcification and mild ectasia of the abdominal aorta. IMPRESSION: 1. There is no radiographic evidence of fracture or malalignment involving the lumbar spine. 2. Osteopenia and mild degenerative change as above. Dictated: 08/07/2017 12:58 PM Transcribed: 08/07/2017 2:12 PM [facility] Electronically signed by: Nathanael Rutherford M.D. 08/07/2017 2:18 PM Dictated Date/Time: 08/07/2017 12:58 PM
--- NOTE | 2017-08-07 14:14 | DIAGNOSTIC IMAGING REPORT ---
THORACIC SPINE 3 VIEWS CLINICAL HISTORY: Compression deformities. FINDINGS: AP, lateral, and swimmer's views of the thoracic spine are compared to study dated 04/12/2016 and correlated with thoracic spine CT dated 10/18/2016. The skeletal structures are osteopenic. There are mild chronic superior endplate compression deformities of T9 and T11. There is no radiographic evidence of acute fracture or malalignment. Vertebral body height is otherwise maintained. Alignment is preserved. No large retropulsed fragments are identified. The transverse processes and pedicles are grossly intact as seen on the frontal view. The disc spaces appear preserved. Tiny anterior osteophytes are seen throughout. A left subclavian central venous infusion port is partially imaged. The imaged lung parenchyma appears clear. IMPRESSION: 1. There is no acute bony abnormality identified involving the thoracic spine. 2. Osteopenia and chronic compression deformities as above. Dictated: 08/07/2017 1:00 PM Transcribed: 08/07/2017 2:13 PM [facility] Electronically signed by: Nathanael Rutherford M.D. 08/07/2017 2:18 PM Dictated Date/Time: 08/07/2017 1:00 PM
[2017-08-07] MEDS ORDERED: NURSING VERBAL MED ORDER ONE (14:30)
[2017-08-07] MEDS: IV FLUIDS COMPLETED PRN (14:40)
[2017-08-07] MEDS: WARFARIN SOD 5 MG TAB PO SCH (15:56)
--- NOTE | 2017-08-07 18:27 | Progress Note ---
Subjective Date of Service: Aug 07, 2017. Subjective Pt evaluation today including: conversation w/ patient, physical exam, lab review, review of studies, review of inpatient medication list Saw/examined the patient in room 420 c/o back pain today also c/o shortness of breath and cough only minimal improvement so far with her breathing status Problem List Medical Problems: (1) Acute asthma exacerbation Status: Acute (2) Acute asthma exacerbation Status: Acute (3) Asthma exacerbation Status: Acute (4) Asthma exacerbation Status: Acute (5) Asthma exacerbation Status: Acute (6) Asthma exacerbation Status: Acute (7) Asthma with exacerbation Status: Acute (8) Asthma with exacerbation Status: Acute (9) Asthmatic bronchitis with acute exacerbation Status: Acute (10) Bronchitis Status: Acute (11) Bronchospasm Status: Acute (12) Chronic anemia Status: Acute (13) Chronic anemia Status: Chronic (14) Closed fracture of T9 vertebra Status: Acute (15) Elevated d-dimer Status: Acute (16) Failure of outpatient treatment Status: Acute (17) Hypoxia Status: Acute (18) Hypoxia Status: Acute (19) Hypoxia Status: Acute (20) Hypoxia Status: Acute (21) Hypoxia Status: Acute (22) Hypoxia Status: Acute (23) Pneumonia Status: Acute (24) Reactive airway disease Status: Acute (25) Reactive airway disease Status: Acute (26) Rib fracture Status: Acute (27) Traumatic compression fracture of T9 thoracic vertebra Status: Acute Surgical Problems: (1) Status post thermoplasty Status: Chronic Review of Systems Constitutional: No fever, No chills Respiratory: + cough, + sputum, + wheezing, + shortness of breath, + dyspnea on exertion, No dyspnea at rest, No hemoptysis Cardiac: No chest pain, No edema, No palpitations Abdomen: No pain, No nausea, No vomiting, No diarrhea, No constipation, No GI bleeding Musculoskeletal: + joint pain Heme: No abnormal bleeding/bruising Medications Current Inpatient Medications Medications (Trade) Dose Ordered Sig/Kaye Route Start Time Stop Time Status Last Admin Dose Admin Acetaminophen (Tylenol Tab) 650 mg Q4H PRN PO 08/06/17 23:00 09/05/17 22:59 Citalopram Hydrobromide (celeXA TAB) 40 mg QAM PO 08/07/17 08:00 09/06/17 08:59 08/07/17 07:50 40 MG Docusate Sodium (coLACE CAP) 200 mg HS PO 08/07/17 21:00 09/06/17 20:59 Lorazepam (Ativan Tab) 1 mg DAILY PRN PO 08/06/17 23:00 09/05/17 22:59 Lorazepam (Ativan Tab) 2 mg HS PO 08/07/17 21:00 09/06/17 20:59 Prednisone (PredniSONE TAB) 20 mg DAILY PO 08/07/17 08:00 09/06/17 08:59 08/07/17 07:49 20 MG Pantoprazole Sodium (Protonix Tab) 40 mg BID PO 08/07/17 08:00 09/06/17 08:59 08/07/17 07:50 40 MG Acetaminophen/ Hydrocodone Bitart ([place] 5/325 Tab) pain not relieved by tyle... QID PRN PO 08/06/17 23:00 08/20/17 22:59 08/07/17 14:19 2 TAB Miscellaneous (Iv Fluids Completed) 1 ea PRN PRN N/A 08/06/17 23:30 08/06/18 23:29 08/07/17 14:40 1 EA Tramadol HCl (Ultram Tab) not relieved ... Q6H PRN PO 08/07/17 03:15 09/06/17 03:14 08/07/17 04:35 50 MG Ipratropium [place] (Atrovent 0.02% 0.5MG/2.5ML Neb) 0.5 mg Q3R PRN INH 08/07/17 11:15 09/06/17 00:29 Ipratropium [place] (Atrovent 0.02% 0.5MG/2.5ML Neb) 0.5 mg Q4RWA INH 08/07/17 12:00 09/06/17 02:59 08/07/17 15:13 0.5 MG Levalbuterol (Xopenex 1.25MG/ 0.5ML Neb) 1.25 mg Q3R PRN INH 08/07/17 11:15 09/06/17 00:29 Levalbuterol (Xopenex 1.25MG/ 0.5ML Neb) 1.25 mg Q4RWA INH 08/07/17 12:00 09/06/17 02:59 08/07/17 15:13 1.25 MG Methylprednisolone Sodium Succinate 40 mg/Syringe 0.64 ml @ 1.5 mls/min Q8H IV 08/07/17 20:00 09/06/17 19:59 Warfarin Sodium (Coumadin Tab) 5 mg DAILY@16 PO 08/07/17 16:00 09/06/17 15:59 08/07/17 15:56 5 MG Heparin Sodium (Porcine) (Heparin 100 Unit/ml 5ml Flush) 5 ml PRN PRN IV 08/07/17 15:00 09/06/17 14:59 Objective Vital Signs Date Time Temp Pulse Resp B/P (MAP) Pulse Ox O2 Delivery O2 Flow Rate FiO2 08/07/17 15:13 69 16 98 Room Air 08/07/17 15:13 36.7 61 18 117/75 (89) 96 Nasal Cannula 2.0 08/07/17 11:50 60 16 98 Room Air 08/07/17 07:50 Room Air 08/07/17 07:37 36.5 60 18 133/78 (96) 96 Room Air 08/07/17 07:23 60 16 96 Room Air 08/07/17 02:05 78 16 96 Nasal Cannula 2.0 08/07/17 02:03 2.0 08/07/17 00:00 Nasal Cannula 2.0 CPAP 08/06/17 23:41 36.8 77 20 143/87 96 Room Air 08/06/17 23:12 78 20 159/86 94 08/06/17 23:07 77 Physical Exam General Appearance: no apparent distress, + obese Respiratory/Chest: no respiratory distress, no accessory muscle use, + decreased breath sounds, + wheezing (minimal wheezing) Cardiovascular: regular rate, rhythm, no edema, no murmur Extremities: normal inspection, no pedal edema Neurologic/Psychiatric: no motor/sensory deficits, alert, normal mood/affect Laboratory Results Last 24 Hours Test 08/06/17 18:42 08/07/17 07:56 08/07/17 11:31 08/07/17 11:39 White Blood Count 12.00 K/uL 9.22 K/uL Red Blood Count 4.31 M/uL 4.31 M/uL Hemoglobin 11.7 g/dL 11.5 g/dL Hematocrit 37.0 % 37.2 % Mean Corpuscular Volume 85.8 fL 86.3 fL Mean Corpuscular Hemoglobin 27.1 pg 26.7 pg Mean Corpuscular Hemoglobin Concent 31.6 g/dl 30.9 g/dl Platelet Count 218 K/uL 218 K/uL Mean Platelet Volume 10.3 fL 10.8 fL Neutrophils (%) (Auto) 89.8 % 85.7 % Lymphocytes (%) (Auto) 7.6 % 10.1 % Monocytes (%) (Auto) 1.8 % 3.9 % Eosinophils (%) (Auto) 0.1 % 0.0 % Basophils (%) (Auto) 0.4 % 0.1 % Neutrophils # (Auto) 10.77 K/uL 7.90 K/uL Lymphocytes # (Auto) 0.91 K/uL 0.93 K/uL Monocytes # (Auto) 0.22 K/uL 0.36 K/uL Eosinophils # (Auto) 0.01 K/uL 0.00 K/uL Basophils # (Auto) 0.05 K/uL 0.01 K/uL RDW Standard Deviation 50.5 fL 49.7 fL RDW Coefficient of Variation 16.0 % 16.0 % Immature Granulocyte % (Auto) 0.3 % 0.2 % Immature Granulocyte # (Auto) 0.04 K/uL 0.02 K/uL Prothrombin Time 35.1 SECONDS 25.4 SECONDS Prothromb Time International Ratio 3.4 2.5 Activated Partial Thromboplast Time 56.6 SECONDS Partial Thromboplastin Ratio 2.2 Sodium Level 137 mmol/L Potassium Level 4.1 mmol/L Chloride Level 103 mmol/L Carbon Dioxide Level 28 mmol/L Anion Gap 6.0 mmol/L Blood Urea Nitrogen 14 mg/dl Creatinine 0.89 mg/dl Est Creatinine Clear Calc Drug Dose 78.6 ml/min Estimated GFR () 83.4 Estimated GFR (Non- 71.9 BUN/Creatinine Ratio 15.3 Random Glucose 116 mg/dl Calcium Level 8.8 mg/dl Magnesium Level 2.1 mg/dl Total Bilirubin 0.2 mg/dl Aspartate Amino Transf (AST/SGOT) 11 U/L Alanine Aminotransferase (ALT/SGPT) 22 U/L Alkaline Phosphatase 49 U/L Troponin I < 0.015 ng/ml Total Protein 7.0 gm/dl Albumin 3.1 gm/dl Globulin 3.9 gm/dl Albumin/Globulin Ratio 0.8 Lipase 136 U/L Arterial Blood pH 7.43 Arterial Blood Partial Pressure CO2 43 mmHg Arterial Blood Partial Pressure O2 106 mm/Hg Arterial Blood HCO3 28 mmol/L Arterial Blood Oxygen Saturation 97.8 % Arterial Blood Base Excess 2.8 mEq/L Arterial Blood Gas Delivery 2L Herrera Test POS Lactic Acid Level 3.1 mmol/L Pro-B-Type Natriuretic Peptide 728 pg/ml Procalcitonin < 0.05 ng/ml Assessment and Plan This is a 56 year old female with a PMH of steroid dependent COPD/asthma with chronic hypoxic respiratory failure requiring supplemental O2 with exertion and nocturnally, hx. of PE on long-term anticoagulation, XIAO on CPAP, chronic back pain with long-term opioid use, hypogammaglobulinemia - presents with shortness of breath Acute Asthma vs. COPD Exacerbation Chronic Respiratory Failure - patient with worsening asthma and COPD symptoms - appreciate pulmonology input - currently on IV solu-medrol TID dosing as per pulm - continue nebs as needed - to note, she takes 10mg of prednisone chronically - she also uses 2-3L of O2 with exertion Hx. of PE - CTA performed during admission - no acute PE noted - continue Coumadin, goal INR of 2-3 Chronic Back Pain - radiographs of the thoracic and lumbar spine show no acute issues - will continue home [place] dose PRN - no IV Dilaudid or morphine needed at this time DVT ppx - Coumadin FULL CODE
[2017-08-07] MEDS: METHYLPREDNISOLONE IV 40 MG in SYRINGE 0 ML IV SCH (20:18)
[2017-08-07] MEDS: LORAZEPAM 1 MG TAB PO SCH (20:18)
[2017-08-07] MEDS: DOCUSATE SODIUM 100 MG CAP PO SCH (20:19)
[2017-08-07] MEDS ORDERED: SODIUM CHLORIDE 0.9% 1000ML 1,000 ML IV SCH (21:00)
[2017-08-08] VITALS (8 sets, daily range): BP systolic 114–151; BP diastolic 55–78; PULSE 55–78; TEMP 36.5–37; O2SAT 96–98
[2017-08-08] MEDS: TRAMADOL HCL 50 MG TAB PO PRN ×3 (02:25→23:59)
[2017-08-08] MEDS: METHYLPREDNISOLONE IV 40 MG in SYRINGE 0 ML IV SCH ×2 (04:14→12:26)
[2017-08-08 05:29] LABS: INR 2.4 (0.9-1.1)
[2017-08-08] MEDS: IPRATROPIUM BROMIDE NEB SOLN 0.02% 2.5 ML VIAL INH SCH ×4 (07:32→20:18)
[2017-08-08] MEDS: LEVALBUTEROL 1.25MG/0.5ML NEB INH SCH ×4 (07:32→20:18)
[2017-08-08] MEDS: HYDROCODONE/ACETAMIN 5/325MG TAB PO PRN ×2 (08:03→18:24)
[2017-08-08] MEDS: PANTOprazole SOD 40 MG TAB PO SCH ×2 (08:04→20:33)
[2017-08-08] MEDS: CITALOPRAM 40 MG TAB PO SCH (08:04)
[2017-08-08] MEDS: IV FLUIDS COMPLETED PRN (08:57)
--- NOTE | 2017-08-08 15:45 | Progress Note ---
Subjective Date of Service: Aug 08, 2017. Subjective Pt evaluation today including: conversation w/ patient, physical exam, lab review, review of studies, review of inpatient medication list Saw/examined the patient in room 420 Breathing status improved States her back pain is much improved as well No other issues at this time Problem List Medical Problems: (1) Acute asthma exacerbation Status: Acute (2) Acute asthma exacerbation Status: Acute (3) Asthma exacerbation Status: Acute (4) Asthma exacerbation Status: Acute (5) Asthma exacerbation Status: Acute (6) Asthma exacerbation Status: Acute (7) Asthma with exacerbation Status: Acute (8) Asthma with exacerbation Status: Acute (9) Asthmatic bronchitis with acute exacerbation Status: Acute (10) Bronchitis Status: Acute (11) Bronchospasm Status: Acute (12) Chronic anemia Status: Acute (13) Chronic anemia Status: Chronic (14) Closed fracture of T9 vertebra Status: Acute (15) Elevated d-dimer Status: Acute (16) Failure of outpatient treatment Status: Acute (17) Hypoxia Status: Acute (18) Hypoxia Status: Acute (19) Hypoxia Status: Acute (20) Hypoxia Status: Acute (21) Hypoxia Status: Acute (22) Hypoxia Status: Acute (23) Pneumonia Status: Acute (24) Reactive airway disease Status: Acute (25) Reactive airway disease Status: Acute (26) Rib fracture Status: Acute (27) Traumatic compression fracture of T9 thoracic vertebra Status: Acute Surgical Problems: (1) Status post thermoplasty Status: Chronic Review of Systems Respiratory: No cough, No sputum, No shortness of breath Cardiac: No chest pain, No edema, No palpitations Abdomen: No pain, No nausea, No vomiting, No diarrhea Medications Current Inpatient Medications Medications (Trade) Dose Ordered Sig/Kaye Route Start Time Stop Time Status Last Admin Dose Admin Acetaminophen (Tylenol Tab) 650 mg Q4H PRN PO 08/06/17 23:00 09/05/17 22:59 Citalopram Hydrobromide (celeXA TAB) 40 mg QAM PO 08/07/17 08:00 09/06/17 08:59 08/08/17 08:04 40 MG Docusate Sodium (coLACE CAP) 200 mg HS PO 08/07/17 21:00 09/06/17 20:59 08/07/17 20:19 200 MG Lorazepam (Ativan Tab) 1 mg DAILY PRN PO 08/06/17 23:00 09/05/17 22:59 Lorazepam (Ativan Tab) 2 mg HS PO 08/07/17 21:00 09/06/17 20:59 08/07/17 20:18 2 MG Pantoprazole Sodium (Protonix Tab) 40 mg BID PO 08/07/17 08:00 09/06/17 08:59 08/08/17 08:04 40 MG Acetaminophen/ Hydrocodone Bitart ([place] 5/325 Tab) pain not relieved by tyle... QID PRN PO 08/06/17 23:00 08/20/17 22:59 08/08/17 08:03 2 TAB Miscellaneous (Iv Fluids Completed) 1 ea PRN PRN N/A 08/06/17 23:30 08/06/18 23:29 08/08/17 08:57 1 EA Tramadol HCl (Ultram Tab) not relieved ... Q6H PRN PO 08/07/17 03:15 09/06/17 03:14 08/08/17 12:32 50 MG Ipratropium [place] (Atrovent 0.02% 0.5MG/2.5ML Neb) 0.5 mg Q3R PRN INH 08/07/17 11:15 09/06/17 00:29 Ipratropium [place] (Atrovent 0.02% 0.5MG/2.5ML Neb) 0.5 mg Q4RWA INH 08/07/17 12:00 09/06/17 02:59 08/08/17 11:41 0.5 MG Levalbuterol (Xopenex 1.25MG/ 0.5ML Neb) 1.25 mg Q3R PRN INH 08/07/17 11:15 09/06/17 00:29 Levalbuterol (Xopenex 1.25MG/ 0.5ML Neb) 1.25 mg Q4RWA INH 08/07/17 12:00 09/06/17 02:59 08/08/17 11:41 1.25 MG Warfarin Sodium (Coumadin Tab) 5 mg DAILY@16 PO 08/07/17 16:00 09/06/17 15:59 08/07/17 15:56 5 MG Heparin Sodium (Porcine) (Heparin 100 Unit/ml 5ml Flush) 5 ml PRN PRN IV 3/29/18 15:00 09/06/17 14:59 08/08/17 12:26 5 ML Prednisone (PredniSONE TAB) 50 mg DAILY PO 08/09/17 08:00 09/08/17 07:59 Objective Vital Signs Date Time Temp Pulse Resp B/P (MAP) Pulse Ox O2 Delivery O2 Flow Rate FiO2 08/08/17 14:50 Room Air 08/08/17 14:40 36.9 78 18 114/73 (87) 96 2.0 08/08/17 11:44 68 18 98 Nasal Cannula 2.0 08/08/17 08:00 Room Air 08/08/17 07:45 36.5 55 18 151/78 (102) 98 Nasal Cannula 2.0 08/08/17 07:35 68 16 96 BiPAP/CPAP 2.0 08/08/17 00:00 Nasal Cannula 2.0 CPAP 08/07/17 23:51 36.8 64 18 116/73 (87) 96 CPAP 08/07/17 19:36 2.0 08/07/17 19:35 75 16 98 Nasal Cannula 2.0 08/07/17 16:00 98 Nasal Cannula 2.0 Physical Exam General Appearance: no apparent distress Respiratory/Chest: chest non-tender, lungs clear, normal breath sounds, no respiratory distress, no accessory muscle use Cardiovascular: regular rate, rhythm, no edema, no murmur Laboratory Results Last 24 Hours Test 08/07/17 18:35 08/08/17 05:11 Lactic Acid Level 4.0 mmol/L 1.9 mmol/L Prothrombin Time 24.6 SECONDS Prothromb Time International Ratio 2.4 Assessment and Plan This is a 56 year old female with a PMH of steroid dependent COPD/asthma with chronic hypoxic respiratory failure requiring supplemental O2 with exertion and nocturnally, hx. of PE on long-term anticoagulation, XIAO on CPAP, chronic back pain with long-term opioid use, hypogammaglobulinemia - presents with shortness of breath Acute Asthma vs. COPD Exacerbation Chronic Respiratory Failure 08/08 - patient is doing better - will transition to 50mg of prednisone - taper down and eventually back to her 10mg of prednisone - outpatient pulmonology and PCP follow-up - likely d/c home in AM (08/09) 08/07 - patient with worsening asthma and COPD symptoms - appreciate pulmonology input - currently on IV solu-medrol TID dosing as per pulm - continue nebs as needed - to note, she takes 10mg of prednisone chronically - she also uses 2-3L of O2 with exertion Hx. of PE - CTA performed during admission - no acute PE noted - continue Coumadin, goal INR of 2-3 Chronic Back Pain - radiographs of the thoracic and lumbar spine show no acute issues - will continue home [place] dose PRN - no IV Dilaudid or morphine needed at this time DVT ppx - Coumadin FULL CODE
--- NOTE | 2017-08-08 16:54 | PULMONARY PROGRESS NOTE ---
DATE: 08/08/2017 SUBJECTIVE: Of note, patient was actually seen today with Dr. Tarango. Dr. Tarango did see the patient today. PROBLEM LIST: Includes: 1. Dyspnea of questionable etiology most likely secondary to her chronic obstructive pulmonary disease with exacerbation. 2. Chronic obstructive pulmonary disease which is oxygen and steroid dependent. 3. History of PE. CTA was negative. 4. Obstructive sleep apnea on CPAP. SUBJECTIVE: The patient reports that she is doing much better today. Her breathing is much improved. She has no wheezing today. She has no significant cough or congestion, no chest heaviness or tightness. She denies any of the discomfort that she had when she came in on the left side. She feels that the Solu-Medrol has helped that pain significantly. She is not having any significant mucous changes. She is using her nebulizer. She is using her oxygen. She feels that these are helpful. She is using her CPAP and feels that this is helping her as well. She has felt feverish. She has no GI difficulties. No nausea or vomiting, no diarrhea. No swelling in her extremities. OBJECTIVE: GENERAL: The patient is a 56-year-old female, lying in bed in no acute distress. She is alert and oriented x3. Mood is good. Affect is good. She is able to complete sentences without difficulty. VITAL SIGNS: Temp 36.9, pulse 78, respiration rate 18, blood pressure is 114/73, pulse ox 96% on 2 liters. HEENT: Normocephalic, atraumatic. Pupils equal, round, reactive to light and accommodation. Extraocular movements are intact. [place] moist gingival and buccal mucosa. NECK: Supple. No mass, no adenopathy, no bruit. CHEST: Today, I did not appreciate any wheezes. CHEST: Clear. No rales or rhonchi noted as well. CARDIOVASCULAR: Regular rate and rhythm. No murmurs, gallops or rubs. ABDOMEN: Bowel sounds are present. Abdomen is soft, nontender. No guarding, rigidity or organomegaly. EXTREMITIES: No erythema, no edema. LABORATORY DATA: The patient had serum lactic acid level ____ 3.1, second was 4.0, and third was 1.9. Procalcitonin was less than 0.05. IMAGING DATA: No new imaging. IMPRESSION: 1. A 56-year-old female who was admitted with dyspnea and some mild hypoxia. The patient is much better today, breathing is much improved. No chest heaviness, really no symptomology at this time. At this point, agree with transitioning her over to oral prednisone to 50 mg and then she can slowly taper down by 5 mg every 2 days until she is down to her base dose of 10 mg daily. I would like to see her in the office in about 10-14 days. 2. Chronic obstructive pulmonary which is oxygen and steroid dependent. She is improving. 3. History of PE. The patient did have a CT angiogram which was negative for PE. 4. Obstructive sleep apnea. The patient is using a CPAP. She is to continue this. 5. History of compression fracture of T9-T11. Imaging did show these and these are subacute at this time, also showed no other fractures present at this time. PLAN: At this point, I feel that the patient is significantly improved and if continues to do well from a pulmonary standpoint can be discharged tomorrow to home. As stated above, would recommend to taper prednisone starting at 50 mg and tapering by 5 mg every 2 days until she is down to her base of 10 mg. Would like to see her in the office in 10-14 days. She is to call for an appointment on Friday. Recommend to continue her aggressive pulmonary toilet.
[2017-08-08] MEDS: WARFARIN SOD 5 MG TAB PO SCH (17:16)
[2017-08-08] MEDS: LORAZEPAM 1 MG TAB PO SCH ×2 (20:33→20:35)
[2017-08-08] MEDS: DOCUSATE SODIUM 100 MG CAP PO SCH (20:33)
[2017-08-09 00:30] VITALS: O2SAT 96
[2017-08-09 03:25] VITALS: PULSE 64; O2SAT 97
[2017-08-09 05:37] LABS: HEMATOCRIT 34.9 % (37-47); HEMOGLOBIN 10.9 g/dL (12.0-16.0); MEAN CELL VOLUME 86.8 fL (80-100); MEAN CORPUSCULAR HEMOGLOBIN 27.1 pg (25-34); MEAN CORPUSCULAR HGB CONC 31.2 g/dl (32-36); MEAN PLATELET VOLUME 9.7 fL (7.4-10.4); PLATELET COUNT 187 K/uL (130-400); RED CELL DISTRIBUTION WIDTH CV 16.6 % (11.5-14.5); RED CELL DISTRIBUTION WIDTH SD 52.5 fL (36.4-46.3); WHITE BLOOD COUNT 13.21 K/uL (4.8-10.8)
[2017-08-09 06:06] LABS: CALCIUM 8.1 mg/dl (8.5-10.1); CREATININE 0.78 mg/dl (0.60-1.20); POTASSIUM 3.9 mmol/L (3.5-5.1)
[2017-08-09 07:08] LABS: INR 2.7 (0.9-1.1)
[2017-08-09] MEDS: IPRATROPIUM BROMIDE NEB SOLN 0.02% 2.5 ML VIAL INH SCH ×2 (07:14→11:13)
[2017-08-09] MEDS: LEVALBUTEROL 1.25MG/0.5ML NEB INH SCH ×2 (07:14→11:13)
[2017-08-09 07:35] VITALS: BP 145/88; PULSE 50; TEMP 36.5; O2SAT 98
--- NOTE | 2017-08-09 08:52 | PULMONARY PROGRESS NOTE ---
DATE: 08/09/2017 TIME: 8:35 a.m. SUBJECTIVE: The patient is feeling well. Her breathing is much improved. She states she has no cough. She is tired today. She apparently received word that her daughter had gone to the ER at another hospital last evening and was there with hypertension. She has been concerned about that and did not sleep as well as desired. Otherwise, she feels much improved compared with admission. OBJECTIVE: GENERAL: The patient appeared comfortable at rest. VITAL SIGNS: Temperature is 36.5. There has been no significant temperature elevation. ENT: Unremarkable. There is no sign of irritation on her face from her CPAP mask. She does wear it faithfully. HEART: Rate is 55 per minute. The rhythm is regular. Blood pressure 145/88. LUNGS: Lung mccain are clear. The breath sounds were decreased. Respiratory rate 18 breaths per minute. Saturation 98% on 2 liters. EXTREMITIES: Showed no cyanosis, clubbing or edema. LABORATORY DATA: White count today is 13.21. Hemoglobin 10.9. Platelets 187,000. INR today is 2.7. Electrolytes show sodium 140, potassium 3.9, chloride 106, bicarbonate 28. BUN is 20 with a creatinine of 0.78. IMPRESSIONS: 1. Chronic obstructive pulmonary disease with exacerbation. 2. Obstructive sleep apnea. COMMENTS AND RECOMMENDATIONS: The patient is clinically doing well. At this point, I would have no objection to discharge from a pulmonary perspective. Would send her home with a slow prednisone taper and continuation of her other usual medications.
[2017-08-09] MEDS: CITALOPRAM 40 MG TAB PO SCH (09:39)
[2017-08-09] MEDS: HYDROCODONE/ACETAMIN 5/325MG TAB PO PRN (09:39)
[2017-08-09] MEDS: PANTOprazole SOD 40 MG TAB PO SCH (09:40)
--- NOTE | 2017-08-09 10:49 | Progress Note ---
Subjective Date of Service: Aug 09, 2017. Subjective Pt evaluation today including: conversation w/ patient, physical exam, lab review, review of studies, review of inpatient medication list Saw/examined the patient in room 420 Patient is doing much better today Breathing status improved and she feels ready to go home. Denies any other symptoms/issues Problem List Medical Problems: (1) Acute asthma exacerbation Status: Acute (2) Acute asthma exacerbation Status: Acute (3) Asthma exacerbation Status: Acute (4) Asthma exacerbation Status: Acute (5) Asthma exacerbation Status: Acute (6) Asthma exacerbation Status: Acute (7) Asthma with exacerbation Status: Acute (8) Asthma with exacerbation Status: Acute (9) Asthmatic bronchitis with acute exacerbation Status: Acute (10) Bronchitis Status: Acute (11) Bronchospasm Status: Acute (12) Chronic anemia Status: Acute (13) Chronic anemia Status: Chronic (14) Closed fracture of T9 vertebra Status: Acute (15) Elevated d-dimer Status: Acute (16) Failure of outpatient treatment Status: Acute (17) Hypoxia Status: Acute (18) Hypoxia Status: Acute (19) Hypoxia Status: Acute (20) Hypoxia Status: Acute (21) Hypoxia Status: Acute (22) Hypoxia Status: Acute (23) Pneumonia Status: Acute (24) Reactive airway disease Status: Acute (25) Reactive airway disease Status: Acute (26) Rib fracture Status: Acute (27) Traumatic compression fracture of T9 thoracic vertebra Status: Acute Surgical Problems: (1) Status post thermoplasty Status: Chronic Review of Systems Constitutional: No fever, No chills Respiratory: No cough, No sputum, No shortness of breath (back to baseline) Cardiac: No chest pain Musculoskeletal: + joint pain (low back pain) Medications Current Inpatient Medications Medications (Trade) Dose Ordered Sig/Kaye Route Start Time Stop Time Status Last Admin Dose Admin Acetaminophen (Tylenol Tab) 650 mg Q4H PRN PO 08/06/17 23:00 09/05/17 22:59 Citalopram Hydrobromide (celeXA TAB) 40 mg QAM PO 08/07/17 08:00 09/06/17 08:59 08/09/17 09:39 40 MG Docusate Sodium (coLACE CAP) 200 mg HS PO 08/07/17 21:00 09/06/17 20:59 08/08/17 20:33 200 MG Lorazepam (Ativan Tab) 1 mg DAILY PRN PO 08/06/17 23:00 09/05/17 22:59 Lorazepam (Ativan Tab) 2 mg HS PO 08/07/17 21:00 09/06/17 20:59 08/08/17 20:35 1 MG Pantoprazole Sodium (Protonix Tab) 40 mg BID PO 08/07/17 08:00 09/06/17 08:59 08/09/17 09:40 40 MG Acetaminophen/ Hydrocodone Bitart ([place] 5/325 Tab) pain not relieved by tyle... QID PRN PO 08/06/17 23:00 08/20/17 22:59 08/09/17 09:39 2 TAB Miscellaneous (Iv Fluids Completed) 1 ea PRN PRN N/A 08/06/17 23:30 08/06/18 23:29 08/08/17 08:57 1 EA Tramadol HCl (Ultram Tab) not relieved ... Q6H PRN PO 08/07/17 03:15 09/06/17 03:14 08/08/17 23:59 50 MG Ipratropium [place] (Atrovent 0.02% 0.5MG/2.5ML Neb) 0.5 mg Q3R PRN INH 08/07/17 11:15 09/06/17 00:29 Ipratropium [place] (Atrovent 0.02% 0.5MG/2.5ML Neb) 0.5 mg Q4RWA INH 08/07/17 12:00 09/06/17 02:59 08/08/17 20:18 0.5 MG Levalbuterol (Xopenex 1.25MG/ 0.5ML Neb) 1.25 mg Q3R PRN INH 08/07/17 11:15 09/06/17 00:29 Levalbuterol (Xopenex 1.25MG/ 0.5ML Neb) 1.25 mg Q4RWA INH 08/07/17 12:00 09/06/17 02:59 08/08/17 20:18 1.25 MG Warfarin Sodium (Coumadin Tab) 5 mg DAILY@16 PO 08/07/17 16:00 09/06/17 15:59 08/08/17 17:16 5 MG Heparin Sodium (Porcine) (Heparin 100 Unit/ml 5ml Flush) 5 ml PRN PRN IV 08/07/17 15:00 09/06/17 14:59 08/09/17 05:21 5 ML Prednisone (PredniSONE TAB) 50 mg DAILY PO 08/09/17 08:00 09/08/17 07:59 08/09/17 09:39 50 MG Objective Vital Signs Date Time Temp Pulse Resp B/P (MAP) Pulse Ox O2 Delivery O2 Flow Rate FiO2 08/09/17 09:40 Room Air 08/09/17 07:35 36.5 50 18 145/88 (107) 98 Nasal Cannula 2.0 08/09/17 07:14 2.0 08/09/17 03:25 64 97 2.0 08/09/17 00:30 96 Nasal Cannula 2.0 08/08/17 23:45 37.0 60 20 135/55 (81) 98 Room Air 08/08/17 23:37 2.0 08/08/17 20:40 96 Nasal Cannula 2.0 08/08/17 20:19 59 16 96 Nasal Cannula 2.0 08/08/17 16:08 64 16 97 Nasal Cannula 2.0 08/08/17 14:50 Room Air 08/08/17 14:40 36.9 78 18 114/73 (87) 96 2.0 08/08/17 11:44 68 18 98 Nasal Cannula 2.0 Physical Exam General Appearance: no apparent distress Respiratory/Chest: lungs clear, normal breath sounds, no respiratory distress, no accessory muscle use Cardiovascular: regular rate, rhythm, no edema, no murmur Abdomen: normal bowel sounds, non tender, soft Extremities: normal inspection, no pedal edema Neurologic/Psychiatric: no motor/sensory deficits, alert, normal mood/affect Laboratory Results Last 24 Hours Test 08/09/17 05:21 08/09/17 06:48 White Blood Count 13.21 K/uL Red Blood Count 4.02 M/uL Hemoglobin 10.9 g/dL Hematocrit 34.9 % Mean Corpuscular Volume 86.8 fL Mean Corpuscular Hemoglobin 27.1 pg Mean Corpuscular Hemoglobin Concent 31.2 g/dl RDW Standard Deviation 52.5 fL RDW Coefficient of Variation 16.6 % Platelet Count 187 K/uL Mean Platelet Volume 9.7 fL Sodium Level 140 mmol/L Potassium Level 3.9 mmol/L Chloride Level 106 mmol/L Carbon Dioxide Level 28 mmol/L Anion Gap 6.0 mmol/L Blood Urea Nitrogen 20 mg/dl Creatinine 0.78 mg/dl Est Creatinine Clear Calc Drug Dose 89.5 ml/min Estimated GFR () 97.8 Estimated GFR (Non- 84.4 BUN/Creatinine Ratio 25.7 Random Glucose 81 mg/dl Calcium Level 8.1 mg/dl Prothrombin Time 27.9 SECONDS Prothromb Time International Ratio 2.7 Assessment and Plan This is a 56 year old female with a PMH of steroid dependent COPD/asthma with chronic hypoxic respiratory failure requiring supplemental O2 with exertion and nocturnally, hx. of PE on long-term anticoagulation, XIAO on CPAP, chronic back pain with long-term opioid use, hypogammaglobulinemia - presents with shortness of breath Acute Asthma vs. COPD Exacerbation Chronic Respiratory Failure 08/09 - patient is doing much better - plan is to d/c home with prednisone taper - will use 50mg for five days and taper down by 5mg every five days - continue home nebulizers and O2 08/08 - patient is doing better - will transition to 50mg of prednisone - taper down and eventually back to her 10mg of prednisone - outpatient pulmonology and PCP follow-up - likely d/c home in AM (08/09) 08/07 - patient with worsening asthma and COPD symptoms - appreciate pulmonology input - currently on IV solu-medrol TID dosing as per pulm - continue nebs as needed - to note, she takes 10mg of prednisone chronically - she also uses 2-3L of O2 with exertion Hx. of PE - CTA performed during admission - no acute PE noted - continue Coumadin, goal INR of 2-3 Chronic Back Pain - radiographs of the thoracic and lumbar spine show no acute issues - will continue home [place] dose PRN - no IV Dilaudid or morphine needed at this time DVT ppx - Coumadin FULL CODE
[2017-08-09] MEDS ORDERED: PRED10TA PO (10:58)
--- NOTE | 2017-08-09 11:01 | Discharge Instructions ---
Discharge Instructions Date of Service Aug 09, 2017. Admission Reason for Admission: SOB Discharge Discharge Diagnosis / Problem: Acute Asthma Exacerbation Discharge Goals Goal(s): Decrease discomfort, Improve function, Diagnostic testing, Therapeutic intervention Activity Recommendations Activity Limitations: resume your previous activity . Instructions / Follow-Up Instructions / Follow-Up Please follow-up with Dr. Turner (covering for Petra Kelly) on August 11 at 3:05PM * You will be on a slow and long prednisone taper - take 50mg for five days, then 45mg for five days, then 40mg for five days, etc. until you are back to your home dose of 10mg * Follow-up with pulmonology Current Hospital Diet Patient's current hospital diet: AHA Diet (Heart Healthy) Discharge Diet Recommended Diet: AHA Diet (Heart Healthy) Pending Studies Studies pending at discharge: no Medical Emergencies . Who to Call and When: Medical Emergencies: If at any time you feel your situation is an emergency, please call 911 immediately. . Non-Emergent Contact Non-Emergency issues call your: Primary Care Provider, [employer] . . "Provider Documentation" section prepared by Obed Nguyen. .
--- NOTE | 2017-08-09 11:03 | Discharge Summary ---
Discharge Summary Date of Service Aug 09, 2017. Discharge Summary Admission Date: Aug 06, 2017 at 23:05 Discharge Date: Aug 09, 2017 Discharge Disposition: Home Principal Diagnosis: Acute Asthma Exacerbation Chronic Hypoxic Respiratory Failure Hx. of PE Chronic Low Back Pain Medication Reconciliation Changed Medications: Prednisone (Prednisone) 10 Mg Tab 50 MG PO UD for 45 Days, #150 TABS (Changed from: 20 MG; DAILY) Continued Medications: Acetaminophen/Hydrocodone (Hydrocodone/Acetaminophen 5-325 mg) 1 Ea Tab 1 TAB PO Q6H PRN for Pain Albuterol Hfa (Ventolin Hfa) 200 Puffs/79833 Mcg Aers 2 PUFFS INH Q6H PRN for SOB/Wheezing Cholecalciferol (Vitamin D) 1,000 Unit Tab 1000 INTER.UNIT PO BID Citalopram (Citalopram Hydrobromide) 40 Mg Tab 40 MG PO QAM Cyanocobalamin (Vitamin B-12) 1,000 Mcg Tab 1000 MCG PO QAM, TAB Docusate Sodium (Colace) 100 Mg Cap 200 MG PO HS, CAP Epinephrine (Epipen 2-Deshawn) 0.3 Mg Inj 0.3 MG IM UD PRN for ALLERGIC REACTION Furosemide (Furosemide) 40 Mg Tab 40 MG PO DAILY Home O2 Therapy (Oxygen) Gas 2 LITERS NA UD, BTL Immune Globulin (Human) Iv (Privigen) 5 Gm/50 Ml Inj 1 DOSE IV MONTHLY Levalbuterol Hcl (Levalbuterol Hcl) 1.25 Mg/3 Ml Neb 1.25 MG NEB Q4H PRN for SOB/Wheezing Lorazepam (Lorazepam) 1 Mg Tab 1 MG PO DAILY PRN for Anxiety Lorazepam (Lorazepam) 1 Mg Tab 2 MG PO HS Omeprazole (Prilosec) 20 Mg Cap 20 MG PO BID Polyethylene Glycol 3350 (Miralax) 1 Pow Pow 17 GM PO DAILY PRN for Constipation Potassium Chloride (Micro-K Ext Rel) 10 Meq Capcr 10 MEQ PO TID, CAP Warfarin Sodium (Warfarin Sodium) 5 Mg Tab 5 MG PO 4XWK, TAB TAKE 5 MG EVERY FRIDAY,FRIDAY,FRIDAY,FRIDAY OR OTHERWISE DIRECTED TO TAKE BY ANTICOAGULATION CLINIC/ Warfarin Sodium (Warfarin Sodium) 5 Mg Tab 7.5 MG PO 3XWK, TAB TAKE 7.5 MG EVERY FRIDAY,FRIDAY AND FRIDAY OR OTHERWISE DIRECTED TO TAKE BY ANTICOAGULATION CLINIC/MD Admission Information HPI (per Admitting provider): DATE OF ADMISSION: 08/06/2017 PRIMARY CARE PHYSICIAN: CRISTOPHER Noguera. CHIEF COMPLAINT: Sent by lung specialist. HISTORY OF PRESENT ILLNESS: History obtained from patient and records. Medical history significant for steroid-dependent COPD/asthma, XIAO on CPAP, GERD, hypogammaglobulinemia, history of PE on Coumadin, mood disorder, past tobacco abuse, chronic anemia (baseline hemoglobin 10-11), chronic back pain secondary to thoracic compression fractures Recent confinement [facility] 2 weeks ago for asthma exacerbation. Patient seen at screen printing paster's office today. Patient complaining of left-sided chest tightness, more shortness of breath than usual, no cough symptoms - usual asthma exacerbation without cough symptoms as per patient. Sent by screen printing paster in the ER for evaluation, possible PE study. CT chest initial read, no PE. At the ER, received Solu-Medrol, DuoNebs for possible asthma exacerbation. Patient is still uncomfortable asking for medication stronger than Vicodin for her mid back pain which according to her gets worse from asthma attack. As per patient, "I'll just be back at the ER in 2 days 2 days if I go home now. " MEDICAL HISTORY: As above. SURGERIES: She has had colectomy, carpal tunnel, hernia surgery, appendectomy, sinus surgery. HOME MEDICATIONS: Include Vicodin, albuterol, furosemide, prednisone 20 mg daily, polyethylene glycol, potassium chloride, Coumadin, home O2 as needed. ALLERGIES: ASPIRIN, GABAPENTIN, IBUPROFEN, DYE, LEVOFLOXACIN, PREGABALIN, ZOLPIDEM. FAMILY HISTORY: Heart disease, sleep apnea, hypertension, kidney disease. PERSONAL AND SOCIAL HISTORY: Past tobacco use, no chronic intake of alcoholic beverages. Disabled. REVIEW OF SYSTEMS: As per HPI. All 10 systems reviewed. All other ROS negative. PHYSICAL EXAMINATION: VITAL SIGNS: Blood pressure was noted to be 157/92, pulse rate 70, RR 20, temperature 36.9, sats 97 on 2 liters later 94 on room air. GENERAL: Noted to be obese, comfortable, no respiratory distress. Cushingoid. SKIN: Pallor, warm. HEENT : pale palpebral conjunctivae, no ptosis, moist buccal mucosa NECK: Short, nontender. CHEST: Decreased effort. No wheezes. HEART: Regular rate and rhythm, no murmur. ABDOMEN: Some distention, nontender. EXTREMITIES: No edema, no gross deformities, no tenderness. NEUROLOGIC: Coherent. No gross focality. LABORATORY DATA: Hemoglobin was noted to be 11.7, hematocrit 37, white cell count 12, platelets noted to be 218. Sodium 137, potassium 4.1, chloride 103, CO2 28, creatinine 1, glucose 116. LFTs normal. Troponin 0.015. CT chest initial read, no PE. EKG as per my interpretation rate 60, NSR, no ischemia ASSESSMENT: 1. Shortness of breath, chest pain possible asthma exacerbation. Atypical symptoms of asthma exacerbation as per patient (No cough, no wheezing symptoms) No pulmonary embolism on initial CT read. 2. History of pulmonary embolism on Coumadin. INR is still pending. 3. Steroid-dependent chronic obstructive pulmonary disease. 4. Chronic back pain. 5. Hypertension, slightly elevated. 6. Chronic anemia, hemoglobin baseline. 7. Past tobacco abuse. PLAN: Observation F Nebs RTC, p.r.n. Continue home prednisone course. Further eval/management of symptoms as per Pulmonology (Dr. Kim). Possible bronchoscopy as per patient. judicious narcotic use - note of multiple admissions in the past for asthma exacerbation where patient would complain of worsening chronic back pain as part of her asthma attack leading to incessant requests for stronger narcotics by patient. DVT prophylaxis, Coumadin, INR 2-3. Full code. Hospital Course This is a 56 year old female with a PMH of steroid dependent COPD/asthma with chronic hypoxic respiratory failure requiring supplemental O2 with exertion and nocturnally, hx. of PE on long-term anticoagulation, XIAO on CPAP, chronic back pain with long-term opioid use, hypogammaglobulinemia - presents with shortness of breath Acute Asthma vs. COPD Exacerbation Chronic Respiratory Failure 08/09 - patient is doing much better - plan is to d/c home with prednisone taper - will use 50mg for five days and taper down by 5mg every five days - continue home nebulizers and O2 08/08 - patient is doing better - will transition to 50mg of prednisone - taper down and eventually back to her 10mg of prednisone - outpatient pulmonology and PCP follow-up - likely d/c home in AM (08/09) 08/07 - patient with worsening asthma and COPD symptoms - appreciate pulmonology input - currently on IV solu-medrol TID dosing as per pulm - continue nebs as needed - to note, she takes 10mg of prednisone chronically - she also uses 2-3L of O2 with exertion Hx. of PE - CTA performed during admission - no acute PE noted - continue Coumadin, goal INR of 2-3 Chronic Back Pain - radiographs of the thoracic and lumbar spine show no acute issues - will continue home [place] dose PRN - no IV Dilaudid or morphine needed at this time DVT ppx - Coumadin FULL CODE Total time spent on discharge = This includes examination of the patient, discharge planning, medication reconciliation, and communication with other providers. Discharge Instructions Please follow-up with Dr. Turner (covering for Petra Kelly) on August 11 at 3:05PM * You will be on a slow and long prednisone taper - take 50mg for five days, then 45mg for five days, then 40mg for five days, etc. until you are back to your home dose of 10mg * Follow-up with pulmonology
[2017-08-09 11:04] VITALS: BP 145/88; PULSE 50; TEMP 36.5; O2SAT 98
== END 2017-08-09 13:03 | disposition home or self-care (01) ==
LOC: C.EDB 16:24 → ENRESERV 22:51 → C.4E 23:05
PROVIDERS: ADMIT Internal Medicine; ATTEND Family Medicine
DX: J44.1 Chronic obstructive pulmonary disease with (acute) exacerbation (principal); J96.11 Chronic respiratory failure with hypoxia; M54.5 Low back pain; G89.29 Other chronic pain; K21.9 Gastro-esophageal reflux disease without esophagitis; G47.33 Obstructive sleep apnea (adult) (pediatric); D80.1 Nonfamilial hypogammaglobulinemia; M81.0 Age-related osteoporosis without current pathological fracture; Z86.711 Personal history of pulmonary embolism; Z99.81 Dependence on supplemental oxygen; Z79.01 Long term (current) use of anticoagulants; Z99.89 Dependence on other enabling machines and devices; Z90.49 Acquired absence of other specified parts of digestive tract; Z88.6 Allergy status to analgesic agent; Z88.1 Allergy status to other antibiotic agents; Z88.8 Allergy status to other drugs, medicaments and biological substances; Z91.041 Radiographic dye allergy status; Z82.49 Family history of ischemic heart disease and other diseases of the circulatory system; Z84.1 Family history of disorders of kidney and ureter

== ENCOUNTER → 2017-12-02 | Outpatient (CLI) | payer OTHER ==
[~2017-12-02] MED LIST changes: +ATRINS INH; -ATV/1 PO; +ATV1 PO; -BNT20 PO; +CITA40TA4 PO; +CYAN10005 PO; +DOCU-94 PO; -FLX/5 PO; +HYDR-4313 PO; -HYDR-5688 PO; +IPRLVL INH; -LEVA1.258 INH; +LEVA1.258 NEB; +LEVE500T13 PO; +LORA1TAB13 PO; -MRLP17 PO; +OMEP20CA9 PO; +OXCA150T2 PO; +POLY335025 PO; -PRD10 PO; +PRED20TA PO; -PRT40 PO; +WARF-246 PO; +ZTA10 PO
== END | disposition home or self-care (01) ==
LOC: C.LABMFLN 07:42
PROVIDERS: ATTEND Physician Assistant
DX: E24.2 Drug-induced Cushing's syndrome (principal); T38.0X5A Adverse effect of glucocorticoids and synthetic analogues, initial encounter

== ENCOUNTER 2017-12-04 16:18 | Inpatient (IN) | payer OTHER ==
[~2017-12-04] VITALS: Ht 165.1 cm; Wt 94.4 kg
[~2017-12-04 16:18] MED LIST changes: -IPRLVL INH; -PRED20TA PO; -ZTA10 PO
[2017-12-04] MEDS ORDERED: PRED20TA PO (16:57)
[2017-12-04] MEDS ORDERED: IPRLVL INH (17:05)
[2017-12-04] MEDS ORDERED: ALBUT/IPRATROP 3MG/0.5MG NEB 3 ML VIAL INH STA (17:20)
[2017-12-04] MEDS ORDERED: HYDROCODONE/ACETAMIN 5/325MG TAB PO STA (17:22)
--- NOTE | 2017-12-04 18:01 | DIAGNOSTIC IMAGING REPORT ---
CHEST ONE VIEW PORTABLE CLINICAL HISTORY: Weakness, dizzy, nausea. COMPARISON STUDY: 10/15/2017 FINDINGS: The cardiac and mediastinal contours are normal. There is no evidence of focal pulmonary consolidation. There is no evidence of failure. No pleural effusions are visualized.[ A left-sided A-Port catheter is again visualized. Increased markings at the left lung base are felt to represent a combination of atelectatic change and fat pad. This remains stable. IMPRESSION: No active disease in the chest. Electronically signed by: Jules Lester M.D. 12/04/2017 6:00 PM Dictated Date/Time: 12/04/2017 5:59 PM
[2017-12-04 18:15] LABS: INR 2.6 (0.9-1.1); PTT PATIENT 43.8 SECONDS (21.0-31.0)
[2017-12-04] MEDS ORDERED: NITROGLYCERIN 0.4 MG SL PER TAB CHARGE SL STA (18:29)
[2017-12-04] MEDS ORDERED: NITROGLYCERIN 0.4 MG SL PER TAB CHARGE ONE (18:31)
[2017-12-04 18:43] LABS: ALBUMIN 3.3 gm/dl (3.4-5.0); ALKALINE PHOSPHATASE 42 U/L (45-117); ALT/SGPT 23 U/L (12-78); AST/SGOT 14 U/L (15-37); BLOOD UREA NITROGEN 11 mg/dl (7-18); CALCIUM 8.8 mg/dl (8.5-10.1); CARBON DIOXIDE 30 mmol/L (21-32); CKMB < 1.0 ng/ml (0.5-3.6); CREATININE 0.88 mg/dl (0.60-1.20); GLUCOSE 119 mg/dl (70-99); LIPASE 138 U/L (73-393); POTASSIUM 3.6 mmol/L (3.5-5.1); SODIUM 139 mmol/L (136-145)
[2017-12-04 19:12] LABS: HEMATOCRIT 35.3 % (37-47); HEMOGLOBIN 10.4 g/dL (12.0-16.0); MEAN CORPUSCULAR HEMOGLOBIN 23.9 pg (25-34); MEAN CORPUSCULAR HGB CONC 29.5 g/dl (32-36); MEAN PLATELET VOLUME 10.8 fL (7.4-10.4); PLATELET COUNT 260 K/uL (130-400); RED CELL DISTRIBUTION WIDTH CV 17.4 % (11.5-14.5); RED CELL DISTRIBUTION WIDTH SD 51.9 fL (36.4-46.3); WHITE BLOOD COUNT 11.67 K/uL (4.8-10.8)
[2017-12-04 19:47] LABS: BASO % 0.3 %; BASO ABS # 0.04 K/uL (0-0.2); EOS % 0.1 %; EOS ABS # 0.01 K/uL (0-0.5); IG# 0.02 K/uL (0.00-0.02); LYMPH % 5.4 %; LYMPH ABS # 0.63 K/uL (1.2-3.4); MONO % 2.8 %; MONO ABS # 0.33 K/uL (0.11-0.59); NEUT % 91.2 %; NEUT ABS # 10.64 K/uL (1.4-6.5)
--- NOTE | 2017-12-04 20:11 | EMERGENCY ROOM VISIT NOTE ---
History Report prepared by Jean-Pierre: Hilda Martinez Under the Supervision of: Dr. Benny Tucker M.D. First contact with patient: 17:09 Chief Complaint: CHEST PAIN Stated Complaint: CHEST PAIN AND TIGHTNESS, DIZZY, NAUSEA Nursing Triage Summary: Patient states "they've been checking me for seizures since September." Today patient felt like she was going to fall but sat down immediately. States "things tunnel and I feel like I will pass out." "Right now I am tight in my chest." History of Present Illness The patient is a 57 year old female who presents to the Emergency Room with complaints of chest tightness beginning this morning. She states that it also radiates to her back and rates her pain at an 8/10. She states that she was hot and had nausea with the episode today. The patient states that she did not feel "quite right" when she got up this morning and that she felt near-syncopal. She states that she has been feeling like this since September 19. The patient reports that she checked her pulse and blood pressure this morning. She states that her blood pressure was high and that her pulse was 104. She states that she was sitting when she did this and that when she stood up and took her blood pressure again that it was higher. The patient reports a history of bad asthma. She reports that when she had the chest tightness that she used an inhaler but states that this did not alleviate her symptoms. She denies using a nebulizer today. The patient reports that she has also been feeling weak and states that she has not had energy. The patient states that she has gained 8 pounds over the last 4 days. The patient reports having swelling in her legs and states that she has been taking her Lasix. She states that she wears 2 liters of Oxygen every day at home and states that she was wearing it today when she was having her symptoms. Pt denies LOC, headache, fevers, chills, diaphoresis, visual changes, neck pain, vomiting, abdominal pain, numbness, rash, or other complaints. Source of History: patient Onset: this morning Position: chest Quality: other (tightness) Associated Symptoms: + back pain, + fatigue, + weakness, No LOC Review of Systems See HPI for pertinent positives and negatives. A total of ten systems were reviewed and were otherwise negative. 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 (16) Left-sided chest wall pain (17) Microscopic hematuria (18) Osteoporosis (19) Sleep apnea (20) SOB (shortness of breath) (21) Vertebral fracture, closed Surgical Problems: (1) H/O sinus surgery (2) History of bronchoscopy (3) History of carpal tunnel surgery (4) S/P cardiac cath (5) S/P herniorrhaphy (6) Status post appendectomy (7) Status post hernia repair (8) Status post partial colectomy (9) Status post thermoplasty (10) Status post thermoplasty Family History FH: heart disease FATHER FH: sleep apnea MOTHER FHx: cancer FHx: gallbladder disease Hypertension MOTHER Kidney disease MOTHER Social History Smoking Status: Former Smoker Alcohol Use: none Drug Use: none Marital Status: Housing Status: lives with significant other Occupation Status: unemployed Current/Historical Medications Scheduled Cholecalciferol (Vitamin D), 2,000 INTER.UNIT PO BID Citalopram (Citalopram Hydrobromide), 40 MG PO QAM Cyanocobalamin (Vitamin B-12), 1,000 MCG PO QAM Docusate Sodium (Colace), 200 MG PO HS Furosemide (Furosemide), 40 MG PO QAM Home O2 Therapy (Oxygen), 2 LITERS NA CONTINOUS Immune Globulin (Human) Iv (Privigen), 1 DOSE IV MONTHLY Levetiracetam (Keppra), 500 MG PO BID Lorazepam (Lorazepam), 2 MG PO HS Omeprazole (Prilosec), 20 MG PO BID Oxcarbazepine (Trileptal), 150 MG PO BID Potassium Chloride (Micro-K Ext Rel), 10 MEQ PO BID Prednisone (Prednisone), 20 MG PO QAM Warfarin Sodium (Warfarin Sodium), 5 MG PO UD Warfarin Sodium (Warfarin Sodium), 7.5 MG PO UD Scheduled PRN Acetaminophen/Hydrocodone (Hydrocodone/Acetaminophen 5-325 mg), 2 TAB PO Q6H PRN for Pain Albuterol Hfa (Ventolin Hfa), 2 PUFFS INH Q6H PRN for SOB/Wheezing Epinephrine (Epipen 2-Deshawn), 0.3 MG IM UD PRN for ALLERGIC REACTION Ipratropium [place] (Ipratropium Arbela), 0.5 MG INH Q4H PRN for SOB/Wheezing Lorazepam (Lorazepam), 1 MG PO DAILY PRN for Anxiety Polyethylene Glycol 3350 (Miralax), 17 GM PO DAILY PRN for Constipation Allergies Coded Allergies: Aspirin (Verified Allergy, Intermediate, HIVES, 12/04/17) Ibuprofen (Verified Allergy, Intermediate, HIVES, 12/04/17) Levofloxacin (Verified Allergy, Intermediate, HIVES, 12/04/17) Iodinated Diagnostic Agents (Verified Allergy, Unknown, HIVES, 12/04/17) Pregabalin (Verified Adverse Reaction, Intermediate, SEVERE DEPRESSION, ) Zolpidem (Verified Adverse Reaction, Intermediate, HALLUCINATIONS, 12/04/17 ) Gabapentin (Verified Adverse Reaction, Mild, GOOFY THOUGHTS, 12/04/17) Physical Exam Vital Signs Date Time Temp Pulse Resp B/P (MAP) Pulse Ox O2 Delivery O2 Flow Rate FiO2 12/04/17 20:07 56 16 134/83 97 Nasal Cannula 2.0 12/04/17 19:06 72 20 167/90 94 Nasal Cannula 2.0 77 146/92 83 136/87 12/04/17 18:38 91 133/83 94 Nasal Cannula 2.0 12/04/17 18:34 67 14 159/87 96 Room Air 12/04/17 18:01 73 20 129/84 94 Room Air 12/04/17 17:18 63 12/04/17 17:03 96 Room Air 12/04/17 17:03 95 Room Air 12/04/17 16:26 36.8 71 18 155/95 94 Room Air Physical Exam GENERAL: Awake, alert, well-appearing, in no distress HENT: Normocephalic, atraumatic. Oropharynx unremarkable. EYES: Normal conjunctiva. Sclera non-icteric. NECK: Supple. No nuchal rigidity. FROM. No masses. RESPIRATORY: Clear to auscultation. No wheezes. No rales. Normal respiratory effort. CARDIAC: Normal rate. Normal rhythm. No murmurs. No rubs. Extremities warm and well perfused. Pulses equal. No JVD. GI: Soft, non-distended. No tenderness to palpation. No rebound or guarding. No masses. RECTAL: Deferred. MUSCULOSKELETAL: Atraumatic. Chest examination reveals no tenderness. Port in left upper chest. The back is symmetrical on inspection without obvious abnormality. There is no CVA tenderness to palpation. No joint edema. LOWER EXTREMITIES: Calves are equal size bilaterally and non-tender. No edema. No discoloration. NEURO: Normal sensorium. No sensory or motor deficits noted. SKIN: No rash or jaundice noted. Medical Decision & Procedures ER Provider Diagnostic Interpretation: Radiology results as stated below per my review and radiologist interpretation: CHEST ONE VIEW PORTABLE CLINICAL HISTORY: Weakness, dizzy, nausea. COMPARISON STUDY: 10/15/2017 FINDINGS: The cardiac and mediastinal contours are normal. There is no evidence of focal pulmonary consolidation. There is no evidence of failure. No pleural effusions are visualized.[ A left-sided A-Port catheter is again visualized. Increased markings at the left lung base are felt to represent a combination of atelectatic change and fat pad. This remains stable. IMPRESSION: No active disease in the chest. Electronically signed by: Jules Lester M.D. 12/04/2017 6:00 PM Dictated Date/Time: 12/04/2017 5:59 PM Laboratory Results 12/04/17 17:45 Red Blood Count 4.36, Mean Corpuscular Volume 81.0, Mean Corpuscular Hemoglobin 23.9, Mean Corpuscular Hemoglobin Concent 29.5, Mean Platelet Volume 10.8, Neutrophils (%) (Auto) 91.2, Lymphocytes (%) (Auto) 5.4, Monocytes (%) (Auto) 2.8, Eosinophils (%) (Auto) 0.1, Basophils (%) (Auto) 0.3, Neutrophils # (Auto) 10.64, Lymphocytes # (Auto) 0.63, Monocytes # (Auto) 0.33, Eosinophils # (Auto) 0.01, Basophils # (Auto) 0.04 12/04/17 17:45 Test 12/04/17 17:45 12/04/17 19:10 White Blood Count 11.67 K/uL (4.8-10.8) Red Blood Count 4.36 M/uL (4.2-5.4) Hemoglobin 10.4 g/dL (12.0-16.0) Hematocrit 35.3 % (37-47) Mean Corpuscular Volume 81.0 fL (80-100) Mean Corpuscular Hemoglobin 23.9 pg (25-34) Mean Corpuscular Hemoglobin Concent 29.5 g/dl (32-36) Platelet Count 260 K/uL (130-400) Mean Platelet Volume 10.8 fL (7.4-10.4) Neutrophils (%) (Auto) 91.2 % Lymphocytes (%) (Auto) 5.4 % Monocytes (%) (Auto) 2.8 % Eosinophils (%) (Auto) 0.1 % Basophils (%) (Auto) 0.3 % Neutrophils # (Auto) 10.64 K/uL (1.4-6.5) Lymphocytes # (Auto) 0.63 K/uL (1.2-3.4) Monocytes # (Auto) 0.33 K/uL (0.11-0.59) Eosinophils # (Auto) 0.01 K/uL (0-0.5) Basophils # (Auto) 0.04 K/uL (0-0.2) RDW Standard Deviation 51.9 fL (36.4-46.3) RDW Coefficient of Variation 17.4 % (11.5-14.5) Immature Granulocyte % (Auto) 0.2 % Immature Granulocyte # (Auto) 0.02 K/uL (0.00-0.02) Polychromasia 1+ Hypochromasia PRESENT Ovalocytes 1+ Prothrombin Time 27.2 SECONDS (9.0-12.0) Prothromb Time International Ratio 2.6 (0.9-1.1) Activated Partial Thromboplast Time 43.8 SECONDS (21.0-31.0) Partial Thromboplastin Ratio 1.7 Anion Gap 6.0 mmol/L (3-11) Est Creatinine Clear Calc Drug Dose 79.0 ml/min Estimated GFR () 83.9 Estimated GFR (Non- 72.4 BUN/Creatinine Ratio 12.6 (10-20) Calcium Level 8.8 mg/dl (8.5-10.1) Magnesium Level 2.1 mg/dl (1.8-2.4) Total Bilirubin 0.2 mg/dl (0.2-1) Direct Bilirubin < 0.1 mg/dl (0-0.2) Aspartate Amino Transf (AST/SGOT) 14 U/L (15-37) Alanine Aminotransferase (ALT/SGPT) 23 U/L (12-78) Alkaline Phosphatase 42 U/L (45-117) Total Creatine Kinase 43 U/L (26-192) Creatine Kinase MB < 1.0 ng/ml (0.5-3.6) Creatine Kinase MB Ratio (0-3.0) Troponin I < 0.015 ng/ml (0-0.045) Total Protein 7.0 gm/dl (6.4-8.2) Albumin 3.3 gm/dl (3.4-5.0) Lipase 138 U/L (73-393) Thyroid Stimulating Hormone (TSH) 0.324 uIu/ml (0.300-4.500) Urine Color YELLOW Urine Appearance CLEAR (CLEAR) Urine pH 7.5 (4.5-7.5) Urine Specific [place] 1.007 (1.000-1.030) Urine Protein NEG (NEG) Urine Glucose (UA) NEG (NEG) Urine Ketones NEG (NEG) Urine Occult Blood 3+ (NEG) Urine Nitrite NEG (NEG) Urine Bilirubin NEG (NEG) Urine Urobilinogen NEG (NEG) Urine Leukocyte Esterase NEG (NEG) Urine WBC (Auto) 0 /hpf (0-5) Urine RBC (Auto) >30 /hpf (0-4) Urine Hyaline Casts (Auto) 0 /lpf (0-5) Urine Epithelial Cells (Auto) 5-10 /lpf (0-5) Urine Bacteria (Auto) NEG (NEG) Laboratory results reviewed by me Medications Administered Medications (Trade) Dose Ordered Sig/Kaye Route Start Time Stop Time Status Last Admin Dose Admin Albuterol/ Ipratropium (Duoneb) 3 ml NOW STAT INH 12/04/17 17:20 12/04/17 17:22 DC 12/04/17 17:37 3 ML Acetaminophen/ Hydrocodone Bitart ([place] 5/325 Tab) 1 tab NOW STAT PO 12/04/17 17:22 12/04/17 17:23 DC 12/04/17 17:37 1 TAB Nitroglycerin (Nitrostat Tab) 0.4 mg NOW STAT SL 12/04/17 18:29 12/04/17 18:31 DC 12/04/17 18:33 0.4 MG ECG Per My Interpretation Indication: chest pain Rate (beats per minute): 60 Rhythm: normal sinus Findings: other (no PACs, no PVCs, no ST elevations, no ST depressions, normal intervals ) Change: Second ECG: Normal sinus rhythm, 67. No acute ischemia. No ectopy. ED Course 1712: The patient was evaluated in room A4A. A complete history and physical exam was performed. 1719: Ordered Duoneb 3 ml INH. 1721: Ordered Hydrocodone Bitart/Acetaminophen 1 tab PO. 1825: I checked on the patient. She said that she is having substernal chest pain. She states that she felt that the chest tightness was better after the treatment. However, this is a different pain. 1828: Ordered Nitroglycerin 0.4 mg SL. 1935: I reevaluated the patient. 1948: Upon reexamination, the patient was resting. I discussed the test results and treatment plan with her. The patient will be evaluated for further management by Dr. Montgomery. Medical Decision Prior records/ancillary studies reviewed. Triage Nursing notes reviewed and agree them. The patient's history was concerning for chest pain. Differential diagnosis: Etiologies such as cardiac ischemia, reactive airway disease, aortic dissection , pulmonary embolism, pneumonia, pneumothorax, musculoskeletal, infections, pericarditis, myocarditis, esophageal rupture, gastrointestinal, as well as others were entertained. Physical examination: As above. ER treatment provided: DuoNeb On reassessment the patient was feeling better with regards to her chest tightness however she developed substernal chest pain. Sublingual nitroglycerin On reassessment the patient felt better. Diagnostic interpretation by me: The electrocardiogram was negative for pathologic change. The labs revealed a therapeutic INR of 2.6. CBC and chemistry panel were unremarkable. The patient does have a mild leukocytosis but per record review indicates that she chronically has an elevated white blood cell count. Troponin negative. Imaging studies: Chest x-ray as above The patient complained of chest pain. She developed more chest pain in the ER and was treated with sublingual nitroglycerin. She felt relief from this. Further management in the hospital will be necessary. Consultation: A consultation was placed with the hospitalist. The case was discussed and diagnostics were reviewed. The patient was evaluated in the ER for further treatment. Medication Reconcilliation Current Medication List: was personally reviewed by me Blood Pressure Screening Patient's blood pressure: Elevated blood pressure will be monitored by hospitalist Consults Time Called: [id number] Consulting Physician: Dr. Simona Looney Returned Call: 1948 Discussed the patient's case. The patient will be evaluated for further treatment and disposition. Impression Primary Impression: Substernal chest pain Scribe Attestation The scribe's documentation has been prepared under my direction and personally reviewed by me in its entirety. I confirm that the note above accurately reflects all work, treatment, procedures, and medical decision making performed by me. Departure Information Dispostion Being Evaluated By Hospitalist Referrals Petra Kelly (PCP) Patient Instructions My [facility]
[2017-12-04] MEDS ORDERED: EPINEPHRINE ADULT AUTO-INJECT 0.3 MG SYR IM PRN (20:45)
[2017-12-04] MEDS ORDERED: LORAZEPAM 1 MG TAB PO PRN (20:45)
[2017-12-04] MEDS ORDERED: ALUMINUM/MAGNESIUM/SIMETH (MAALOX MAX) 30 ML UDC PO PRN (20:45)
[2017-12-04] MEDS ORDERED: NITROGLYCERIN 0.4 MG SL PER TAB CHARGE SL PRN (20:45)
[2017-12-04] MEDS ORDERED: POLYETHYLENE (MIRALAX) 17 GM PACK PO PRN (20:45)
[2017-12-04] MEDS ORDERED: ACETAMINOPHEN 325 MG TAB PO PRN (20:45)
[2017-12-04] MEDS ORDERED: ONDANSETRON INJ 2 MG/ML 2 ML VIAL IV PRN (20:45)
[2017-12-04] MEDS ORDERED: ALBUTEROL HFA 8 GM INHALER INH PRN (20:45)
[2017-12-04] MEDS: LORAZEPAM 1 MG TAB PO SCH (21:00)
[2017-12-04] MEDS: MoRPHine SULFATE 4 MG/ML 1 ML CARP\\VIAL IV PRN (22:24)
[2017-12-04 22:38] VITALS: BP 134/84; PULSE 64; TEMP 36.7; O2SAT 96; Ht 165.1 cm; Wt 94.4 kg
--- NOTE | 2017-12-04 22:55 | HISTORY & PHYSICAL EXAMINATION ---
DATE OF ADMISSION: 12/04/2017 CHIEF COMPLAINT: Chest pain. HISTORY OF PRESENT ILLNESS: This is a 57-year-old female with past medical history significant for asthma, COPD, obstructive sleep apnea on CPAP, history of depression, GERD, PE on Coumadin, chronic respiratory failure, history of syncope, hyperlipidemia, seizures. Presents with chest pain. The patient says since September she is having presyncope like episodes, 2 or 3 episodes every day, where she feels like falling down and she has to sit on a chair and when she checks her blood pressure, it is all over the place. Today she was trying to get up to put eyedrops on her when on the way she started to feel like passing out and she sat in a chair.Also had some chest pain. At times, she has had chest tightness, which she feels like when she has asthma, but it was more severe, and this worried her and she came to the ER. With the DuoNebs, her chest pressure went away, but she still had chest pain, and she was given nitro that relieved her pain. Currently resting comfortably and hemodynamically stable. Currently has chronic back pain from her T11 spine fracture in the past. Denies any headaches. No blurred vision, no earache, no runny nose, no sore throat, no cough, no shortness of breath currently, no nausea, no vomiting, no abdominal pain. Normal appetite. Normal bowel and bladder movements. ambulating okay. Currently hemodynamically stable. The patient has a history of recurrent admissions for asthma exacerbations. ALLERGIES: ASPIRIN, IBUPROFEN, IV DYE, LEVOFLOXACIN, AMBIEN, GABAPENTIN, LYRICA. PAST MEDICAL HISTORY: As mentioned above. PAST SURGICAL HISTORY: Bronchoscopy, colonoscopy, carpal tunnel surgery, colostomy later reversed, cardiac catheterization, dilatation and curettage, EGD with biopsy, exploratory laparotomy, abdominal hernia repair with mesh implantation, laparoscopic cholecystectomy, partial colectomy with anastomosis, appendectomy, repair of recurrent incisional hernia, sinus surgery, vaginal hysterectomy. MEDICATIONS: The patient is on vitamin D 2000 units p.o. daily, [place] 5/325 mg 1-2 tablets every 6 hours p.r.n., Ativan 1 mg in the morning and 2 mg at bedtime, Trileptal 150 mg p.o. b.i.d., Keppra 500 mg p.o. b.i.d., Lasix 40 mg p.o. daily, potassium chloride 10 mEq p.o. b.i.d., prednisone 20 mg p.o. daily, Coumadin 5 mg daily except Friday on which she takes 7.5 mg, levalbuterol every 4 hours p.r.n., oxygen 2 liters as directed, Celexa 40 mg p.o. daily, omeprazole 20 mg p.o. b.i.d., Ventolin 2 puffs q. 4 hours p.r.n., MiraLax 17 grams p.o. daily p.r.n., Colace 200 mg p.o. at bedtime, Privigen IVIG monthly, cyanocobalamin 1000 mcg p.o. daily, epinephrine p.r.n. allergic reactions. FAMILY HISTORY: Significant for mother who had asthma, hypercholesterolemia. Father had OR, at the age of 49. Mother also has hypotension, sleep apnea, peripheral vascular disease. SOCIAL HISTORY: Former smoker, quit in 2003, prior to that smoked 1 pack a day for 30 years. No alcohol use, no drug use. , lives with her . REVIEW OF SYMPTOMS: As per HPI. Rest of the review of symptoms negative. PHYSICAL EXAMINATION: GENERAL: The patient is of moderate build, not in distress. VITAL SIGNS: Temperature 36.4, pulse 56, respiratory rate 16, blood pressure 134/83, oxygen 97% on 2 liters. HEENT: No pallor, no icterus. Pupils equal, round, reactive. NECK: No JVD, no neck masses, no carotid bruits. CARDIOVASCULAR: S1, S2 heard, regular rate and rhythm, no murmur, no gallop. RESPIRATORY SYSTEM: Clear to auscultation bilaterally. No wheezing, no crackles. ABDOMEN: Soft, bowel sounds present. Nontender. No distention. CENTRAL NERVOUS SYSTEM: Cranial nerves II through XII are grossly intact. Nonfocal. EXTREMITIES: No edema, no erythema. LABORATORY DATA: WBC 11.6, hemoglobin 10.4, hematocrit 35.3, platelets 260. Sodium 139, potassium 3.6, chloride 102, bicarbonate 30, BUN 11, creatinine 0.8, serum glucose 119, calcium 8.8, magnesium 2.1, total bilirubin 0.2, direct bilirubin less than 0.1, AST 14, ALT 23, alkaline phosphatase 42, total creatinine kinase 43, CK-MB less than 1, troponin I less than 0.015, lipase 130, TSH 0.324. PT 27.2, INR 2.6, APTT 43.8. Urinalysis was positive for occult blood. Chest x-ray, no acute disease in the chest. EKG: Normal sinus rhythm with a rate of 60, no acute ST changes seen. ASSESSMENT AND PLAN: This is a 57-year-old female who presents with chest pain. 1. Chest pain, presyncope-like episodes going on since last September. This chest pain is relieved by nitro in the ER. Initial workup is negative. We will follow serial cardiac enzymes, echocardiogram and consult cardiology in the a.m. for further recommendation. 2. History of asthma, history of chronic obstructive pulmonary disease. Continue home nebs and inhalers and patient is also chronically on prednisone, which we will continue. 3. History of obstructive sleep apnea, on CPAP at bedtime. 4. Chronic back pain. Continue home pain medications. 5. History of depression. Continue Celexa and Ativan p.r.n. 6. History of seizures. Continue Keppra and Trileptal. 7. History of pulmonary embolism, on Coumadin. Follow the INR. 8. History of hypogammaglobulinemia, patient gets IVIGs monthly. 9. History of hyperlipidemia, currently not on medication. We will follow the lipid profile. 10. UA positive for occult blood. Needs followup. 11. Deep venous thrombosis prophylaxis, on Coumadin. DISPOSITION: Admit to tele floor. Expect to discharge home and follow with family doctor. Level 1 full code. MTDD
[2017-12-04] MEDS ORDERED: WARFARIN SOD 5 MG TAB PO SCH (23:00)
[2017-12-04] MEDS ORDERED: IV FLUIDS COMPLETED PRN (23:30)
[2017-12-04] MEDS: LEVETIRACETAM 500 MG TAB PO SCH (23:43)
[2017-12-04] MEDS: POTASSIUM CHLORIDE 10 MEQ TABCR PO SCH (23:44)
[2017-12-04] MEDS: OXCARBAZEPINE 150 MG TAB PO SCH (23:44)
[2017-12-04] MEDS: DOCUSATE SODIUM 100 MG CAP PO SCH (23:44)
[2017-12-04] MEDS: PANTOprazole SOD 40 MG TAB PO SCH (23:44)
[2017-12-04] MEDS: CHOLECALCIFEROL 1000 INTER.UNIT TAB PO SCH (23:45)
[2017-12-05] VITALS (22 sets, daily range): BP systolic 82–128; BP diastolic 45–85; PULSE 54–79; TEMP 36.6–36.9; O2SAT 95–98
[2017-12-05] MEDS: MoRPHine SULFATE 4 MG/ML 1 ML CARP\\VIAL IV PRN ×3 (03:23→20:40)
[2017-12-05] MEDS: HYDROCODONE/ACETAMIN 5/325MG TAB PO PRN ×2 (07:55→17:16)
[2017-12-05 08:40] LABS: BASO % 0.5 %; BASO ABS # 0.04 K/uL (0-0.2); EOS % 1.9 %; EOS ABS # 0.16 K/uL (0-0.5); HEMATOCRIT 34.1 % (37-47); IG# 0.03 K/uL (0.00-0.02); LYMPH % 36.7 %; LYMPH ABS # 3.14 K/uL (1.2-3.4); MEAN CELL VOLUME 81.6 fL (80-100); MEAN CORPUSCULAR HEMOGLOBIN 23.9 pg (25-34); MEAN CORPUSCULAR HGB CONC 29.3 g/dl (32-36); MEAN PLATELET VOLUME 10.8 fL (7.4-10.4); MONO % 6.8 %; MONO ABS # 0.58 K/uL (0.11-0.59); NEUT % 53.7 %; NEUT ABS # 4.61 K/uL (1.4-6.5); PLATELET COUNT 261 K/uL (130-400); RED CELL DISTRIBUTION WIDTH CV 17.5 % (11.5-14.5); RED CELL DISTRIBUTION WIDTH SD 52.6 fL (36.4-46.3); WHITE BLOOD COUNT 8.56 K/uL (4.8-10.8)
[2017-12-05 08:45] LABS: INR 2.3 (0.9-1.1)
[2017-12-05] MEDS ORDERED: PERFLUTREN LIPID MICROSPHERE (DEFINITY) IV ONE ×2 (08:46→11:06)
[2017-12-05] MEDS: CHOLECALCIFEROL 1000 INTER.UNIT TAB PO SCH ×2 (08:49→20:28)
[2017-12-05] MEDS: FUROSEMIDE 40 MG TAB PO SCH (08:49)
[2017-12-05] MEDS: CITALOPRAM 40 MG TAB PO SCH (08:50)
[2017-12-05] MEDS: OXCARBAZEPINE 150 MG TAB PO SCH ×2 (08:50→20:29)
[2017-12-05] MEDS: PANTOprazole SOD 40 MG TAB PO SCH ×2 (08:50→20:28)
[2017-12-05] MEDS: CYANOCOBALAMIN 500 MCG TAB (VIT B-12) PO SCH (08:50)
[2017-12-05] MEDS: POTASSIUM CHLORIDE 10 MEQ TABCR PO SCH ×2 (08:50→20:29)
[2017-12-05] MEDS: LEVETIRACETAM 500 MG TAB PO SCH ×2 (08:51→20:28)
[2017-12-05 09:10] LABS: BLOOD UREA NITROGEN 15 mg/dl (7-18); CALCIUM 8.3 mg/dl (8.5-10.1); CARBON DIOXIDE 32 mmol/L (21-32); CHOLESTEROL 377 mg/dl (0-200); CKMB < 1.0 ng/ml (0.5-3.6); CREATININE 0.86 mg/dl (0.60-1.20); GLUCOSE 79 mg/dl (70-99); POTASSIUM 3.5 mmol/L (3.5-5.1); SODIUM 143 mmol/L (136-145)
[2017-12-05] MEDS: IPRATROPIUM BROMIDE NEB SOLN 0.02% 2.5 ML VIAL INH PRN ×2 (09:15→20:43)
[2017-12-05] MEDS ORDERED: ATROPINE SULFATE 0.1 MG/ML 10 ML SYR ONE (09:34)
[2017-12-05] MEDS ORDERED: DOBUTamine HCL 12.5 MG/ML 20 ML VIAL ONE (09:34)
[2017-12-05] MEDS ORDERED: METOPROLOL TARTRATE 1 MG/ML VIAL ONE (09:34)
--- NOTE | 2017-12-05 11:08 | Cardiology Consultation ---
Cardiology Consultation Date of Consultation: Dec 05, 2017 History of Present Illness Patient is a 57 year old female seen in cardiology consultation per the request of Dr Montgomery for the evaluation of recurrent syncope and chest pain. Patient is a long-standing history of significant asthma. She is on chronic anticoagulation with Coumadin due to a past pulmonary embolism. The patient describes she has had difficulties recently with recurrent syncopal episodes. Since September, she had been evaluated on several occasions at [facility]. She describes episodes of being blackout episodes that occur typically shortly after she stands up from seated position. She states when she stands up that she feels lightheaded and sometimes she can just stand still and things get better but other times she has lost postural tone. Per review of records, there is concern that this was due to seizure and she has therefore been placed on medication. From a cardiac perspective per her history it sounds as though she has had episodes while on telemetry at the hospital with the findings of arrhythmia. She been seen in outpatient cardiology follow-up at the [facility] cardiology clinic in September, and the note describes that she had a video monitor performed that was without significant arrhythmia having had a repeat event while wearing the monitor. The patient states that yesterday she got up from her chair and she was asked to apply her 's eyedrops to his eyes. When she got up she had an episode of feeling as though she was going to pass out. Then she had associated chest tightness. She took her blood pressure at home and her systolic blood pressure is apparently in the range of 180 mmHg, and her heart rate was elevated. This event felt differently compared to the other ones. She subsequently came to the emergency room and she described a tightness that felt like a tightness around the line of her bra encompassing both sides of her chest and into her midline sternum. She has a history of chronic back pain, and she states that sometimes it is difficult to tell whether her pain starts in her back. She also notes a chronic degree of chest tightness that she attributes to her asthma, however , the discomfort that prompted her to come to the ED felt different to her. 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 Denies alcohol use. Family History: Mother with history of hypertension asthma peripheral arterial disease Father with history of heart disease with having apparently of a myocardial infarction at the age of 49. Review Of Systems 10 point review systems is reviewed and is negative with the exception of that above Allergies Coded Allergies: Aspirin (Verified Allergy, Intermediate, HIVES, 12/04/17) Ibuprofen (Verified Allergy, Intermediate, HIVES, 12/04/17) Levofloxacin (Verified Allergy, Intermediate, HIVES, 12/04/17) Iodinated Diagnostic Agents (Verified Allergy, Unknown, HIVES, 12/04/17) Pregabalin (Verified Adverse Reaction, Intermediate, SEVERE DEPRESSION, ) Zolpidem (Verified Adverse Reaction, Intermediate, HALLUCINATIONS, 12/04/17 ) Gabapentin (Verified Adverse Reaction, Mild, GOOFY THOUGHTS, 12/04/17) Medications Reported Home Medications Medications Dose Route/Sig Max Daily Dose Days Date Category Dose Instructions Ipratropium [place] 1 Ea Nebu 0.5 Mg INH Q4H PRN 12/04/17 Reported Prednisone 20 Mg Tab 20 Mg PO QAM 12/04/17 Reported Trileptal (Oxcarbazepine) 150 Mg Tab 150 Mg PO BID 10/15/17 Reported Keppra (Levetiracetam) 500 Mg Tab 500 Mg PO BID 10/15/17 Reported Oxygen Gas 2 Liters NA CONTINOUS 08/06/17 Reported Miralax (Polyethylene Glycol 3350) 1 Pow Pow 17 Gm PO DAILY PRN 08/06/17 Reported Lorazepam 1 Mg Tab 2 Mg PO HS 08/06/17 Reported Prilosec (Omeprazole) 20 Mg Cap 20 Mg PO BID 08/06/17 Reported Hydrocodone/Acetaminophen 5-325 mg (Acetaminophen/Hydrocodone Bitart) 1 Ea Tab 2 Tab PO Q6H PRN 08/06/17 Reported Warfarin Sodium 5 Mg Tab 7.5 Mg PO UD 08/06/17 Reported [id number] Warfarin Sodium 5 Mg Tab 5 Mg PO UD 08/06/17 Reported [id number] Micro-K Ext Rel (Potassium Chloride) 10 Meq Capcr 10 Meq PO BID 02/18/17 Reported Furosemide 40 Mg Tab 40 Mg PO QAM 02/18/17 Reported TAKE WITH POTASSIUM Citalopram Hydrobromide (Citalopram) 40 Mg Tab 40 Mg PO QAM 11/27/16 Reported Ventolin Hfa (Albuterol) 200 Puffs/05797 Mcg Aers 2 Puffs INH Q6H PRN 08/06/16 Reported Vitamin D (Cholecalciferol) 1,000 Unit Tab 2,000 Inter.unit PO BID 06/19/16 Reported Privigen (Immune Globulin (Human) Iv) 5 Gm/50 Ml Inj 1 Dose IV MONTHLY 12/20/15 Reported Colace (Docusate Sodium) 100 Mg Cap 200 Mg PO HS 05/06/15 Reported Lorazepam 1 Mg Tab 1 Mg PO DAILY PRN 01/08/15 Reported Vitamin B-12 (Cyanocobalamin) 1,000 Mcg Tab 1,000 Mcg PO QAM 12/13/14 Reported Epipen 2-Deshawn (Epinephrine) 0.3 Mg Inj 0.3 Mg IM UD PRN 04/05/14 Reported Physical Exam Vital Signs (Last 8hrs): Last 8 Hrs Date Time Temp Pulse Resp B/P (MAP) Pulse Ox O2 Delivery O2 Flow Rate FiO2 12/05/17 09:15 61 16 98 Nasal Cannula 2.0 12/05/17 08:10 Nasal Cannula 2.0 12/05/17 07:01 36.6 79 16 125/85 (98) 95 CPAP 12/05/17 04:52 36.6 79 18 128/82 (97) 95 CPAP General Appearance: Alert and Oriented x3. NAD. Head: Normocephalic Atraumatic. Eyes: PERRLA, EOMI, conjunctiva and sclera clear Neck: Supple. No carotid bruits noted. No JVD. No HJD. Respiratory: Breath sounds clear to auscultation bilaterally. No w/r/r. Cardiovascular: Reg rate and rhythm. S1 and S2 noted. No murmurs, rubs, gallops. PMI non displace. Abdomen: Normal bowel sounds, soft nontender. no abdominal bruits. Extremities: No edema, no clubbing or cyanosis. distal pulses 2/4 bilaterally. -A port in place Neuro: No focal deficits. Psychiatric: Normal affect. Data Last Resulted 12/05/17 07:39 Red Blood Count 4.18, Mean Corpuscular Volume 81.6, Mean Corpuscular Hemoglobin 23.9, Mean Corpuscular Hemoglobin Concent 29.3, Mean Platelet Volume 10.8, Neutrophils (%) (Auto) 53.7, Lymphocytes (%) (Auto) 36.7, Monocytes (%) (Auto) 6.8, Eosinophils (%) (Auto) 1.9, Basophils (%) (Auto) 0.5, Neutrophils # (Auto) 4.61, Lymphocytes # (Auto) 3.14, Monocytes # (Auto) 0.58, Eosinophils # (Auto) 0.16, Basophils # (Auto) 0.04 Last Resulted 12/05/17 07:39 Past 24 Hours Test 12/04/17 17:45 12/05/17 04:44 12/05/17 07:39 Range/Units Creatine Kinase MB < 1.0 < 1.0 0.5-3.6 ng/ml Creatine Kinase MB Ratio 0-3.0 Prothromb Time International Ratio 2.6 H 2.3 H 0.9-1.1 Prothrombin Time 27.2 H 24.1 H 9.0-12.0 SECONDS Total Creatine Kinase 43 26-192 U/L Troponin I < 0.015 < 0.015 0-0.045 ng/ml Resting EKG tracings 3 performed on presentation yesterday and again this morning revealed stable sinus rhythm and sinus bradycardia without ST changes. Resting echocardiogram revealed normal resting wall motion. A debridement stress echocardiogram was performed. The patient's presenting symptoms of shortness of breath and chest tightness were reproduced with dobutamine infusion and are associated with ST segment depression and a subtle apical wall motion abnormality. Assessment & Plan Impression: 57-year-old female -Patient presented with episodes of chest tightness and worsening shortness of breath. Cardiac enzymes and wrist EKG negative, she however has had a abnormal response to dobutamine stress echo. -She is a family history of premature coronary artery disease with her father having of a presumed cardiac event the age of 49. -History of remote pulmonary embolism, on therapeutic anticoagulation with Coumadin, INR 2.3 Discussion/recommendations: The patient has had multiple recent syncopal episodes. This is been evaluated with admissions at [facility] and thus far cardiac workup has been negative. Her pain concerns that perhaps she has adrenal insufficiency due to chronic steroid use. In addition to recurrent syncopal episodes she presented with chest tightness and shortness of breath. Is difficult to distinguish history pathak from her baseline asthma chest tightness and angina. Her debridement stress echocardiogram however was abnormal, and recommend further evaluation with coronary angiography. She had [place] [facility] [place] angiographically normal coronaries at that time per the report which I reviewed today. Since her INR is 2.3, the plan will be to attempt the case via the right radial approach. I discussed her case with interventional cardiology.
[2017-12-05] MEDS ORDERED: HEPARIN SOD (PORCINE) 1000 UNIT/ML 10 ML VIAL ONE (11:46)
[2017-12-05] MEDS ORDERED: FENTANYL CITRATE INJ 50 MCG/1 ML 2 ML VIAL ONE (11:46)
[2017-12-05] MEDS ORDERED: MIDAZOLAM HCL 1 MG/ML 2ML VIAL ONE (11:46)
[2017-12-05] MEDS ORDERED: NiCARDipine HCL INJ 2.5 MG/ML 10 ML AMP ONE (11:46)
[2017-12-05] MEDS ORDERED: NITROGLYCERIN/D5W 100MCG/ML 20ML SYR ONE (11:47)
[2017-12-05] MEDS ORDERED: RANITIDINE HCL 25 MG/ML INJ ONE (11:49)
[2017-12-05] MEDS ORDERED: DiphenhydrAMINE HCL 50 MG/ML VIAL ONE (11:49)
--- NOTE | 2017-12-05 12:11 | Cardiology Procedure Brief Nt ---
Preliminary Cardiology Note Procedure Date Dec 05, 2017. Pre-Procedure Diagnosis chest pain, shortness of breath Post-Procedure Diagnosis abnormal stress test suggestive of ischemia Procedure(s) Performed Dobutamine stress echocardiogram Director Medicare Sales Pari Garcia DO Tobacco Curer(s) PETRA Mejia Estimated Blood Loss none Medication(s) Dobutamine infusion by protocol. Metoprolol 5 mg IV. Preliminary Findings Abnormal stress test. Symptoms suggestive of angina induced. Abnormal stress EKG response with 1-1.[address] depression in the inferior leads. Subtle apical wall motion abnormality with stress. Recommendations Proceed with cardiac catheterization. Pt has ASA allergy-hives (confirmed via my discussion with patient). If PCI indicated, will consider bare metal stent with combination of coumadin and clopidogrel given need for Coumadin for past PE. Specimens none Complication(s) None Disposition Return to 2 N telemetry.
[2017-12-05] MEDS ORDERED: ADENOSINE IV SOLN 3 MG/ML 20 ML VIAL ONE (12:25)
--- NOTE | 2017-12-05 12:40 | Pre Sedation Assessment ---
Pre Sedation Assessment General Date of Sedation: Dec 05, 2017. Vital Signs Past 12 Hours Date Time Temp Pulse Resp B/P (MAP) Pulse Ox O2 Delivery O2 Flow Rate FiO2 12/05/17 09:15 61 16 98 Nasal Cannula 2.0 12/05/17 08:10 Nasal Cannula 2.0 12/05/17 07:01 36.6 79 16 125/85 (98) 95 CPAP 12/05/17 04:52 36.6 79 18 128/82 (97) 95 CPAP Review Cardiovascular: regular rate, rhythm, no edema Lungs: chest non-tender, lungs clear Pre-Sedation Airway Assessment Smoking Status: Former Smoker Hx of Sleep Apnea: No Hx of difficult intubation: No Short Thick Neck: No Thyro-mental Distance: > 3 Finger Breadths Oral Cavity: Dentures Mallampati Classification: Class II ASA Classification: Class II Procedure Planning Contraindications for Sedation: None Current Medications Reviewed: Yes Notes The planned sedation has been discussed with the patient. Informed Consent was obtained. I have identified the patient, determined the appropriateness of sedation and have assessed the patient immediately prior to the procedure. All medicine(s) and interventions are by my order.
--- NOTE | 2017-12-05 12:40 | Post Sedation Assessment ---
Post Sedation Assessment General Date of Sedation Dec 05, 2017. Vital Signs: Vital Signs Past 12 Hours Date Time Temp Pulse Resp B/P (MAP) Pulse Ox O2 Delivery O2 Flow Rate FiO2 12/05/17 09:15 61 16 98 Nasal Cannula 2.0 12/05/17 08:10 Nasal Cannula 2.0 12/05/17 07:01 36.6 79 16 125/85 (98) 95 CPAP 12/05/17 04:52 36.6 79 18 128/82 (97) 95 CPAP Post Procedure Recovery Score Activity: (2) Moves 4 extremities * Respiration: (2) Deep breath/cough Circulation: (2) +/-20% PreAnes Value Consciousness: (2) Fully Awake Oxygen Saturation: (2) > 92% On Room Air Post Anesthesia Score: 10 Discharge Sedation Level of Care: Fast Track Phase II Post Sedation Plan On clinical assessment, the patient appears to have tolerated the sedation without complications. Patient is recovering as anticipated. Patient will continue to be monitored by nursing and may be discharged when sedation discharge criteria are met per below protocol. Upon Completions of procedure and additional 15 minutes continue every 5 minute vital signs and the P.A.R. score; then discharge to a Phase I or Fast Track to Phase II per the following guidelines: * Discharge Patient to appropriate Phase II area if PAR is 8 or greater or return to pre- procedure baseline. The post - procedure orders will be as directed. * If PAR score is less than 8 or not return to pre-procedure baseline then patient will follow Phase I monitoring till PAR is reached for Phase II. The Phase I may be done in procedure room or may call to secure a Phase I area. * If naloxone or flumazenil are used for reversal, hold in Phase I for an additional 60 -120 minutes before discharge to Phase II. Please call the Sedation Physician to re-evaluate and complete post-note for discharge to Phase II area. Do NOT discharge from procedure sedation or Phase 1 until post- sedation evaluation note is complete by procedure /sedation MD Sedation Discharge Instructions to be given to the patient at discharge to home.
[2017-12-05] MEDS ORDERED: SODIUM CHLORIDE 0.9% 1000ML 1,000 ML IV SCH (12:52)
--- NOTE | 2017-12-05 12:52 | Cardiac Catheterization ---
Procedure Note Procedure Date Dec 05, 2017. Pre-Procedure Diagnosis Positive Stress Test AUC Score 7 Post-Procedure Diagnosis Moderate CAD, Normal Intracardiac Pressures Procedure(s) Performed Coronary Angiography, Left Heart Cath, Fractional Flow Maybeury Systems Technician Cruz Route Inspector(s) Nadir Estimated Blood Loss <10 Medication(s) Fentanyl, Heparin, Nicardipine, Nitroglycerin, Versed, Lidocaine 1% Summary of Findings Indication: chest pain, positive stress test Access: 6Fr slender right radial artery Catheters: [place]; Ikari 3.5 Findings: LM - Luminal irregularities LAD - 20% proximal disease, distal luminal irregularities as wraps around apex. Gives off 3 small diagonals without significant disease. Circumflex - Large caliber vessel with 50-60% mid to distal disease at take-off of OM2; gives off 2 OMs and large L-PLB without significant disease. RCA - Large, dominant vessel with diffuse 40-50% mid segment disease. iFR of circumflex/RCA: LM cannulated with [place] 3.5 guide straight FFR wire placed into distal L-PLB iFR circumflex 0.99 Wire removed, post procedure angiography unchanged. RCA cannulated with [place] 3.5 guide straight FFR wire placed into distal RCA iFR 0.98 Wire removed, post procedure angiography unchanged. Arterial Closure: TR Band Summary: 1. Moderate non-obstructive coronary artery disease - 40-50% diffuse mid RCA (iFR 0.98) - 50-60% mid to distal circumflex (iFR 0.99) 2. Normal intracardiac filling pressure Recommendations: Continued ASCVD risk factor modification and medical management of non- obstructive CAD per Dr. Garcia. Hemodynamics Rest Ao: 141/79/108 Final Ao: 115/63/87 LV: -- Recommendations Medical therapy and/or Counseling Specimens None Radiation Exposure (mGy) 2184 Contrast (mls) 70 Fluids (cc crystalloids) 92 Drains none Anesthesia moderate Procedural Complication(s) None Disposition PCU ACC Data Cardiac Status Clinical evaluation leading to the procedure CAD Presntation: Positive Stress Test Anginal Classification: CCS III Heart Failure: No, NYHA Class: CCS I Cardiogenic Shock w/in 24Hrs: No Cardiac Arrest w/in 24Hrs: No Imaging studies past 6 months: Yes Stress studies past 6 months: Yes Stress Echocardiogram: Yes - Indeterminant Closure Device Percutaneous Entry Location: Radial Closure Device: Radial Band Recommendations: Medical therapy and/or Counseling Intraprocedure Events Significant Dissection: No Perforation: No
--- NOTE | 2017-12-05 14:37 | Progress Note ---
Internal Med Progress Note Date of Service: Dec 05, 2017. Provider Documentation: SUBJECTIVE: Patient s/p post cardiac cath. Patient informed of cath report that revealed non -obstructive Coronary artery disease and no stenting required. She reports feeling some chest discomfort. She denies acute shortness of breath. She is not ready to go home until she feels better. OBJECTIVE: Exam: General- on nasal cannula Eyes- EOMI Neck- trachea midline, no JVD Lungs- fair air entry, no crackles, no inspiratory wheezes, mild expiration wheeze at end of exam Heart- regular rate Abdomen- truncal obesity, soft, nontender, positive bowel sounds Extremities- no edema Neuro- no focal deficits ASSESSMENT & PLAN: 57-year-old female who presents with chest pain. Chest pain, presyncope-like episodes going on since last September. This chest pain is relieved by nitro in the ER. Troponins negative Resting echocardiogram revealed normal resting wall motion. stress echocardiogram was performed. The patient's presenting symptoms of shortness of breath and chest tightness were reproduced with dobutamine infusion and are associated with ST segment depression and a subtle apical wall motion abnormality. So patient was sent to cardiac cath The cardiac cath found 1. Moderate non-obstructive coronary artery disease - 40-50% diffuse mid RCA (iFR 0.98) - 50-60% mid to distal circumflex (iFR 0.99) 2. Normal intracardiac filling pressure No stent required as this was deemed to be a non-obstructive coronary artery disease History of asthma, history of chronic obstructive pulmonary disease. Continue home nebs and inhalers and patient is also chronically on prednisone, continue prednisone History of obstructive sleep apnea, on CPAP at bedtime. Chronic back pain. Continue home pain medications. History of depression. Continue Celexa and Ativan p.r.n. History of seizures. Continue Keppra and Trileptal. History of pulmonary embolism, on Coumadin continue coumadin Friday/Friday/Friday as 7.5 mg daily. 5 mg daily for other days History of hypogammaglobulinemia, patient gets IVIGs monthly. History of hyperlipidemia poor lipid profile patient reports she is not on statins because of history of muscle cramps UA positive for occult blood; patient is asymptomatic Deep venous thrombosis prophylaxis, on Coumadin. Patient has an upcoming appointment on 12/11/2017 3:30 PM CRISTOPHER Santana [facility] Vital Signs: Date Time Temp Pulse Resp B/P (MAP) Pulse Ox O2 Delivery O2 Flow Rate FiO2 12/05/17 16:00 Nasal Cannula 2.0 12/05/17 16:00 54 19 112/70 (84) 97 Nasal Cannula 2.0 12/05/17 15:30 56 17 109/64 (79) 95 Nasal Cannula 2.0 12/05/17 15:00 55 18 107/75 (86) 98 Nasal Cannula 2.0 12/05/17 14:30 58 17 121/65 (83) 97 Nasal Cannula 2.0 12/05/17 14:15 65 18 127/83 (98) 96 Nasal Cannula 2.0 12/05/17 14:07 59 16 122/79 (93) 95 Nasal Cannula 2.0 12/05/17 13:33 59 18 108/75 (86) 95 Nasal Cannula 2.0 12/05/17 13:19 58 18 105/62 (76) 96 12/05/17 13:17 62 20 114/75 (88) 96 Nasal Cannula 2.0 12/05/17 13:04 56 16 114/75 (88) 95 Nasal Cannula 2.0 12/05/17 12:49 60 14 136/51 (79) 99 Nasal Cannula 4 12/05/17 12:44 60 14 126/80 (95) 99 Nasal Cannula 4 12/05/17 12:39 58 14 134/64 (87) 99 Nasal Cannula 4 12/05/17 12:34 56 14 133/68 (89) 99 Nasal Cannula 4 12/05/17 09:15 61 16 98 Nasal Cannula 2.0 12/05/17 08:10 Nasal Cannula 2.0 12/05/17 07:01 36.6 79 16 125/85 (98) 95 CPAP 12/05/17 04:52 36.6 79 18 128/82 (97) 95 CPAP 12/05/17 00:15 77 96 2.0 12/05/17 00:03 36.6 76 20 126/78 (94) 97 Nasal Cannula 2.0 12/05/17 00:00 Nasal Cannula 2.0 12/04/17 22:38 36.7 64 18 134/84 96 Nasal Cannula 2.0 12/04/17 21:47 57 16 132/91 97 12/04/17 21:25 59 12/04/17 20:07 56 16 134/83 97 Nasal Cannula 2.0 12/04/17 19:06 72 20 167/90 94 Nasal Cannula 2.0 77 146/92 83 136/87 12/04/17 18:38 91 133/83 94 Nasal Cannula 2.0 12/04/17 18:34 67 14 159/87 96 Room Air 12/04/17 18:01 73 20 129/84 94 Room Air 12/04/17 17:18 63 12/04/17 17:03 96 Room Air 12/04/17 17:03 95 Room Air 12/04/17 16:26 36.8 71 18 155/95 94 Room Air Lab Results: Results Past 24 Hours Test 12/04/17 17:45 12/04/17 19:10 12/05/17 04:44 12/05/17 07:39 Range/Units White Blood Count 11.67 8.56 4.8-10.8 K/uL Red Blood Count 4.36 4.18 4.2-5.4 M/uL Hemoglobin 10.4 10.0 12.0-16.0 g/dL Hematocrit 35.3 34.1 37-47 % Mean Corpuscular Volume 81.0 81.6 80-100 fL Mean Corpuscular Hemoglobin 23.9 23.9 25-34 pg Mean Corpuscular Hemoglobin Concent 29.5 29.3 32-36 g/dl Platelet Count 260 261 130-400 K/uL Mean Platelet Volume 10.8 10.8 7.4-10.4 fL Neutrophils (%) (Auto) 91.2 53.7 % Lymphocytes (%) (Auto) 5.4 36.7 % Monocytes (%) (Auto) 2.8 6.8 % Eosinophils (%) (Auto) 0.1 1.9 % Basophils (%) (Auto) 0.3 0.5 % Neutrophils # (Auto) 10.64 4.61 1.4-6.5 K/uL Lymphocytes # (Auto) 0.63 3.14 1.2-3.4 K/uL Monocytes # (Auto) 0.33 0.58 0.11-0.59 K/uL Eosinophils # (Auto) 0.01 0.16 0-0.5 K/uL Basophils # (Auto) 0.04 0.04 0-0.2 K/uL RDW Standard Deviation 51.9 52.6 36.4-46.3 fL RDW Coefficient of Variation 17.4 17.5 11.5-14.5 % Immature Granulocyte % (Auto) 0.2 0.4 % Immature Granulocyte # (Auto) 0.02 0.03 0.00-0.02 K/uL Polychromasia 1+ Hypochromasia PRESENT Ovalocytes 1+ Prothrombin Time 27.2 24.1 9.0-12.0 SECONDS Prothromb Time International Ratio 2.6 2.3 0.9-1.1 Activated Partial Thromboplast Time 43.8 21.0-31.0 SECONDS Partial Thromboplastin Ratio 1.7 Sodium Level 139 143 136-145 mmol/L Potassium Level 3.6 3.5 3.5-5.1 mmol/L Chloride Level 102 105 98-107 mmol/L Carbon Dioxide Level 30 32 21-32 mmol/L Anion Gap 6.0 6.0 3-11 mmol/L Blood Urea Nitrogen 11 15 7-18 mg/dl Creatinine 0.88 0.86 0.60-1.20 mg/dl Est Creatinine Clear Calc Drug Dose 79.0 81.6 ml/min Estimated GFR () 83.9 86.3 Estimated GFR (Non- 72.4 74.5 BUN/Creatinine Ratio 12.6 17.5 10-20 Random Glucose 119 79 70-99 mg/dl Calcium Level 8.8 8.3 8.5-10.1 mg/dl Magnesium Level 2.1 2.3 1.8-2.4 mg/dl Total Bilirubin 0.2 0.2-1 mg/dl Direct Bilirubin < 0.1 0-0.2 mg/dl Aspartate Amino Transf (AST/SGOT) 14 15-37 U/L Alanine Aminotransferase (ALT/SGPT) 23 12-78 U/L Alkaline Phosphatase 42 45-117 U/L Total Creatine Kinase 43 26-192 U/L Creatine Kinase MB < 1.0 < 1.0 0.5-3.6 ng/ml Creatine Kinase MB Ratio 0-3.0 Troponin I < 0.015 < 0.015 0-0.045 ng/ml Total Protein 7.0 6.4-8.2 gm/dl Albumin 3.3 3.4-5.0 gm/dl Lipase 138 73-393 U/L Thyroid Stimulating Hormone (TSH) 0.324 0.300-4.500 uIu/ml Urine Color YELLOW Urine Appearance CLEAR CLEAR Urine pH 7.5 4.5-7.5 Urine Specific [place] 1.007 1.000-1.030 Urine Protein NEG NEG Urine Glucose (UA) NEG NEG Urine Ketones NEG NEG Urine Occult Blood 3+ NEG Urine Nitrite NEG NEG Urine Bilirubin NEG NEG Urine Urobilinogen NEG NEG Urine Leukocyte Esterase NEG NEG Urine WBC (Auto) 0 0-5 /hpf Urine RBC (Auto) >30 0-4 /hpf Urine Hyaline Casts (Auto) 0 0-5 /lpf Urine Epithelial Cells (Auto) 5-10 0-5 /lpf Urine Bacteria (Auto) NEG NEG Triglycerides Level 419 0-150 mg/dl Cholesterol Level 377 0-200 mg/dl HDL Cholesterol 52 mg/dl LDL Cholesterol, Calculated mg/dl VLDL Cholesterol, Calculated mg/dl Cholesterol/HDL Ratio 7.3 Test 12/05/17 12:41 12/05/17 14:07 Range/Units Creatine Kinase MB Ratio 0-3.0 Creatine Kinase MB < 1.0 0.5-3.6 ng/ml Troponin I 0.036 0-0.045 ng/ml Microbiology Results 12/04/17 Urine Culture - Final, Complete THREE TYPES OF ORGANISMS PRESENT, ALL...
[2017-12-05] MEDS ORDERED: WARFARIN SOD 7.5 MG TAB PO ONE (15:00)
[2017-12-05 15:40] LABS: CKMB < 1.0 ng/ml (0.5-3.6)
[2017-12-05] MEDS ORDERED: WARFARIN SOD 7.5 MG TAB PO SCH ×2 (16:00)
[2017-12-05] MEDS: DOCUSATE SODIUM 100 MG CAP PO SCH (20:30)
[2017-12-05] MEDS: LORAZEPAM 1 MG TAB PO SCH (21:00)
[2017-12-06] VITALS (15 sets, daily range): BP systolic 102–129; BP diastolic 59–77; PULSE 51–69; TEMP 36.1–37.2; O2SAT 94–99
[2017-12-06] MEDS: MoRPHine SULFATE 4 MG/ML 1 ML CARP\\VIAL IV PRN ×2 (04:06→08:27)
[2017-12-06 07:04] LABS: HEMATOCRIT 34.5 % (37-47); MEAN CELL VOLUME 82.5 fL (80-100); MEAN CORPUSCULAR HEMOGLOBIN 23.9 pg (25-34); MEAN PLATELET VOLUME 10.3 fL (7.4-10.4); PLATELET COUNT 247 K/uL (130-400); RED CELL DISTRIBUTION WIDTH CV 17.6 % (11.5-14.5); RED CELL DISTRIBUTION WIDTH SD 53.5 fL (36.4-46.3); WHITE BLOOD COUNT 9.34 K/uL (4.8-10.8)
[2017-12-06 07:15] LABS: INR 2.9 (0.9-1.1)
[2017-12-06 07:36] LABS: CALCIUM 7.3 mg/dl (8.5-10.1); CREATININE 0.81 mg/dl (0.60-1.20); POTASSIUM 3.8 mmol/L (3.5-5.1)
[2017-12-06] MEDS: CHOLECALCIFEROL 1000 INTER.UNIT TAB PO SCH ×2 (08:12→21:22)
[2017-12-06] MEDS: CYANOCOBALAMIN 500 MCG TAB (VIT B-12) PO SCH (08:12)
[2017-12-06] MEDS: LEVETIRACETAM 500 MG TAB PO SCH ×2 (08:12→21:22)
[2017-12-06] MEDS: OXCARBAZEPINE 150 MG TAB PO SCH ×2 (08:12→21:22)
[2017-12-06] MEDS: CITALOPRAM 40 MG TAB PO SCH (08:12)
[2017-12-06] MEDS: POTASSIUM CHLORIDE 10 MEQ TABCR PO SCH ×2 (08:13→21:22)
[2017-12-06] MEDS: FUROSEMIDE 40 MG TAB PO SCH (08:13)
[2017-12-06 08:24] LABS: BASO % 0.6 %; BASO ABS # 0.06 K/uL (0-0.2); EOS % 2.1 %; IG# 0.03 K/uL (0.00-0.02); LYMPH % 30.6 %; LYMPH ABS # 2.86 K/uL (1.2-3.4); MONO % 8.1 %; MONO ABS # 0.76 K/uL (0.11-0.59); NEUT % 58.3 %; NEUT ABS # 5.43 K/uL (1.4-6.5)
[2017-12-06] MEDS: PANTOprazole SOD 40 MG TAB PO SCH ×2 (09:00→21:22)
[2017-12-06] MEDS ORDERED: EZETIMIBE 10MG TAB PO ONE (11:05)
--- NOTE | 2017-12-06 11:08 | Cardiology Follow-Up ---
Subjective General Date of Service: Dec 06, 2017. Chief Complaint: Follow-up chest pain, shortness of breath Pt evaluation today including: conversation w/ patient, conversation w/ family History of Present Illness The patient is a 57 year old female seen in follow-up today. She notes feeling well. She tolerated cardiac catheterization well and notes no discomfort at her right radial access site. Telemetry reveals stable sinus rhythm and sinus bradycardia. EKG performed today reveals stable sinus bradycardia [address] segment changes. Allergies Coded Allergies: Aspirin (Verified Allergy, Intermediate, HIVES, 12/04/17) Ibuprofen (Verified Allergy, Intermediate, HIVES, 12/04/17) Levofloxacin (Verified Allergy, Intermediate, HIVES, 12/04/17) Iodinated Diagnostic Agents (Verified Allergy, Unknown, HIVES, 12/04/17) Pregabalin (Verified Adverse Reaction, Intermediate, SEVERE DEPRESSION, ) Zolpidem (Verified Adverse Reaction, Intermediate, HALLUCINATIONS, 12/04/17 ) Gabapentin (Verified Adverse Reaction, Mild, GOOFY THOUGHTS, 12/04/17) Social History Smoking Status: Former Smoker Hx Tobacco Use In Past Year?: No Hx Alcohol Use - Type And Amou: No Hx Substance Use - Type And Am: No Problem List Medical Problems: (1) Acute asthma exacerbation Status: Acute (2) Acute asthma exacerbation Status: Acute (3) Asthma exacerbation Status: Acute (4) Asthma exacerbation Status: Acute (5) Asthma exacerbation Status: Acute (6) Asthma exacerbation Status: Acute (7) Asthma with exacerbation Status: Acute (8) Asthma with exacerbation Status: Acute (9) Asthmatic bronchitis with acute exacerbation Status: Acute (10) Bronchitis Status: Acute (11) Bronchospasm Status: Acute (12) Chronic anemia Status: Acute (13) Chronic anemia Status: Chronic (14) Closed fracture of T9 vertebra Status: Acute (15) Elevated d-dimer Status: Acute (16) Failure of outpatient treatment Status: Acute (17) Hypoxia Status: Acute (18) Hypoxia Status: Acute (19) Hypoxia Status: Acute (20) Hypoxia Status: Acute (21) Hypoxia Status: Acute (22) Hypoxia Status: Acute (23) Pneumonia Status: Acute (24) Reactive airway disease Status: Acute (25) Reactive airway disease Status: Acute (26) Rib fracture Status: Acute (27) Substernal chest pain Status: Acute (28) Traumatic compression fracture of T9 thoracic vertebra Status: Acute Surgical Problems: (1) Status post thermoplasty Status: Chronic Physical Exam Vital Signs Last Vital Signs Documentation Date Time Temp Pulse Resp B/P (MAP) Pulse Ox O2 Delivery O2 Flow Rate FiO2 12/06/17 08:30 Room Air 12/06/17 07:05 36.1 51 19 117/71 (86) 99 12/06/17 03:38 2.0 Physical Exam Constitutional: Level of Distress: NAD Neck: supple Lungs: Auscultation: no wheezing, no rales/crackles, no rhonchi Cardiovascular: Heart Auscultation: RRR, no murmurs, no rubs Abdomen: Inspection & Palpation: soft, non-distended, no tenderness, guarding & rebound Extremities: no edema Neurologic: Gait & Station: pertinent finding (No focal deficits, follows commands, fluent speech appropriate affect.) Assessment and Plan Assessment and Plan Cardiac catheterization performed 12/05/17: Procedure performed via right radial artery access. Left main: Luminal irregularities LAD: 20% proximal stenosis distal luminal irregularities at the level the apex, 3 small diagonal branches without significant disease Circumflex: Large caliber vessel with 50-60% mid to distal stenosis at the takeoff of obtuse marginal 2. The obtuse marginal branches 1 and 2 and a large left posterior lateral branch had no significant disease Right coronary artery: Large dominant vessel with diffuse 40-50% mid segment disease -Fractional flow reserve measurements were performed predicting that the moderate RCA and circumflex disease was not hemodynamically significant - 40-50% diffuse mid RCA (iFR 0.98) - 50-60% mid to distal circumflex (iFR 0.99) Intracardiac filling pressures normal. Impression: Based on cardiac catheterization, I do not think her presenting symptoms of chest tightness or due to angina. Her to be doing stress echocardiogram was likely a false positive with mild ST segment changes consistent with false positive EKG, and the apical wall motion abnormality was very subtle and the images are somewhat technically limited. Recommendations: Continue ongoing treatment for her lung disease. She has history of recurrent syncope. Cardiac workup continues to be negative. No arrhythmias noted during his hospital stay. Recommend risk factor modification for nonobstructive moderate CAD. She is not on aspirin due to her past history of hives. Clopidogrel would be an option, but the patient is already on chronic Coumadin due to past history of pulmonary embolism, and due to bleeding risk, I recommend ongoing Coumadin without antiplatelet therapy for now. She describes intolerance to past statin therapy. Per review of her [facility] chart, she has not tolerated trials of atorvastatin, rosuvastatin, fenofibrate, simvastatin, and Pravachol. Would recommend initiating Zetia 10 mg daily. Her blood pressure is well controlled. Hold off on beta-gwen and KWAN inhibitor/ARB given her relatively low blood pressure and sinus bradycardia, and past history of recurrent loss of consciousness episodes. Patient stable from a cardiac perspective for discharge. Recommend routine cardiology follow-up and interval of perhaps 3 months for ongoing risk factor surveillance. I discussed with her options of following with me at [facility] versus at [facility]. Patient elects to follow- up at [facility] cardiology this is closer to her home. She has seen Eber Bee PA-C in the past and has seen Dr. Jerson Davidson as an inpatient and she was interested in following with 1 of these 2 providers if possible. I will place a telephone encounter to help facilitate follow-up. Kristian Garcia, DO Laboratory Results Last 24 Hours Test 12/05/17 12:41 12/05/17 14:07 12/06/17 06:47 Creatine Kinase MB Ratio Creatine Kinase MB < 1.0 ng/ml Troponin I 0.036 ng/ml White Blood Count 9.34 K/uL Red Blood Count 4.18 M/uL Hemoglobin 10.0 g/dL Hematocrit 34.5 % Mean Corpuscular Volume 82.5 fL Mean Corpuscular Hemoglobin 23.9 pg Mean Corpuscular Hemoglobin Concent 29.0 g/dl Platelet Count 247 K/uL Mean Platelet Volume 10.3 fL Neutrophils (%) (Auto) 58.3 % Lymphocytes (%) (Auto) 30.6 % Monocytes (%) (Auto) 8.1 % Eosinophils (%) (Auto) 2.1 % Basophils (%) (Auto) 0.6 % Neutrophils # (Auto) 5.43 K/uL Lymphocytes # (Auto) 2.86 K/uL Monocytes # (Auto) 0.76 K/uL Eosinophils # (Auto) 0.20 K/uL Basophils # (Auto) 0.06 K/uL RDW Standard Deviation 53.5 fL RDW Coefficient of Variation 17.6 % Immature Granulocyte % (Auto) 0.3 % Immature Granulocyte # (Auto) 0.03 K/uL Red Blood Cell Morphology Unremarkable Prothrombin Time 29.8 SECONDS Prothromb Time International Ratio 2.9 Sodium Level 142 mmol/L Potassium Level 3.8 mmol/L Chloride Level 107 mmol/L Carbon Dioxide Level 30 mmol/L Anion Gap 5.0 mmol/L Blood Urea Nitrogen 15 mg/dl Creatinine 0.81 mg/dl Est Creatinine Clear Calc Drug Dose 86.7 ml/min Estimated GFR () 92.8 Estimated GFR (Non- 80.1 BUN/Creatinine Ratio 18.7 Random Glucose 76 mg/dl Calcium Level 7.3 mg/dl Magnesium Level 2.2 mg/dl
[2017-12-06] MEDS ORDERED: ALBUT/IPRATROP 3MG/0.5MG NEB 3 ML VIAL INH ONE (11:30)
[2017-12-06] MEDS: HYDROCODONE/ACETAMIN 5/325MG TAB PO PRN ×2 (13:05→18:41)
[2017-12-06] MEDS: IPRATROPIUM BROMIDE NEB SOLN 0.02% 2.5 ML VIAL INH SCH ×3 (15:39→23:05)
[2017-12-06] MEDS ORDERED: WARFARIN SOD 5 MG TAB PO SCH (16:00)
--- NOTE | 2017-12-06 17:16 | Progress Note ---
Internal Med Progress Note Date of Service: Dec 06, 2017. Provider Documentation: SUBJECTIVE: Patient reports today that she does not feel her breathing is back at baseline. She has back pain. And that she does not feel ready to go home OBJECTIVE: Exam: General- on nasal cannula Eyes- EOMI Neck- trachea midline, no JVD Lungs- fair air entry, no crackles Heart- regular rate Back: left mid right back with tenderness on palpation Abdomen- truncal obesity, soft, nontender, positive bowel sounds Extremities- no edema Neuro- no focal deficits ASSESSMENT & PLAN: 57-year-old female who presents with chest pain. Chest pain, presyncope-like episodes going on since last September. This chest pain is relieved by nitro in the ER. Troponins negative Resting echocardiogram revealed normal resting wall motion. stress echocardiogram was performed. The patient's presenting symptoms of shortness of breath and chest tightness were reproduced with dobutamine infusion and are associated with ST segment depression and a subtle apical wall motion abnormality. So patient was sent to cardiac cath The cardiac cath found 1. Moderate non-obstructive coronary artery disease - 40-50% diffuse mid RCA (iFR 0.98) - 50-60% mid to distal circumflex (iFR 0.99) 2. Normal intracardiac filling pressure No stent required as this was deemed to be a non-obstructive coronary artery disease History of asthma, history of chronic obstructive pulmonary disease; Chronic respiratory failure with hypoxia on home oxygen History of obstructive sleep apnea, on CPAP at bedtime. patient is also chronically on prednisone, continue prednisone for now changing nebulizers from prn to scheduled have provided patient with symptomatic respiratory relief Chronic back pain oral narcotics, have asked nurse to provide warm compresses to back History of depression. Continue Celexa and Ativan p.r.n. History of seizures. Continue Keppra and Trileptal. History of pulmonary embolism, on Coumadin continue coumadin Friday/Friday/Friday as 7.5 mg daily. 5 mg daily for other days History of hypogammaglobulinemia, patient gets IVIGs monthly. History of hyperlipidemia poor lipid profile patient reports she is not on statins because of history of muscle cramps (Per review of her [facility] chart, she has not tolerated trials of atorvastatin , rosuvastatin, fenofibrate, simvastatin, and Pravachol) initiating Zetia 10 mg daily as per cardiology service blood pressure is well controlled. Hold off on beta-gwen and KWAN inhibitor/ ARB given her relatively low blood pressure and sinus bradycardia, and past history of recurrent loss of consciousness episodes. History of recurrent syncope. Cardiac workup continues to be negative. No arrhythmias noted during his hospital stay. UA positive for occult blood; patient is on couamdin and is asymptomatic Deep venous thrombosis prophylaxis, on Coumadin. Patient has an upcoming appointment on 12/11/2017 3:30 PM CRISTOPHER Santana [facility] Recommend routine cardiology follow-up and interval of perhaps 3 months for ongoing risk factor surveillance Vital Signs: Date Time Temp Pulse Resp B/P (MAP) Pulse Ox O2 Delivery O2 Flow Rate FiO2 12/06/17 16:51 56 113/73 (86) 69 129/65 (86) 64 119/77 (91) 12/06/17 16:03 98 Nasal Cannula 2.0 12/06/17 15:39 63 16 98 Nasal Cannula 2.0 12/06/17 15:27 36.9 64 18 110/59 (76) 94 Nasal Cannula 2.0 12/06/17 14:05 36.9 57 20 98 2.0 12/06/17 11:59 36.9 57 20 109/68 (82) 98 Nasal Cannula 2.0 12/06/17 11:40 60 16 98 Nasal Cannula 2.0 12/06/17 08:30 Room Air 12/06/17 07:05 36.1 51 19 117/71 (86) 99 12/06/17 03:38 36.4 52 18 105/71 (82) 97 BiPAP 2.0 102/65 (77) 123/69 (87) 12/06/17 00:01 CPAP 2.0 12/05/17 23:43 36.9 55 20 114/77 (89) 95 BiPAP 2.0 12/05/17 21:02 115/76 (89) 12/05/17 20:52 73 96 2.0 12/05/17 20:43 73 16 96 BiPAP/CPAP 2.0 12/05/17 19:59 36.8 60 20 82/45 (57) 96 Nasal Cannula 2.0 12/05/17 18:00 72 19 99/51 (67) 96 Nasal Cannula 2.0 Lab Results: Results Past 24 Hours Test 12/06/17 06:47 Range/Units White Blood Count 9.34 4.8-10.8 K/uL Red Blood Count 4.18 4.2-5.4 M/uL Hemoglobin 10.0 12.0-16.0 g/dL Hematocrit 34.5 37-47 % Mean Corpuscular Volume 82.5 80-100 fL Mean Corpuscular Hemoglobin 23.9 25-34 pg Mean Corpuscular Hemoglobin Concent 29.0 32-36 g/dl Platelet Count 247 130-400 K/uL Mean Platelet Volume 10.3 7.4-10.4 fL Neutrophils (%) (Auto) 58.3 % Lymphocytes (%) (Auto) 30.6 % Monocytes (%) (Auto) 8.1 % Eosinophils (%) (Auto) 2.1 % Basophils (%) (Auto) 0.6 % Neutrophils # (Auto) 5.43 1.4-6.5 K/uL Lymphocytes # (Auto) 2.86 1.2-3.4 K/uL Monocytes # (Auto) 0.76 0.11-0.59 K/uL Eosinophils # (Auto) 0.20 0-0.5 K/uL Basophils # (Auto) 0.06 0-0.2 K/uL RDW Standard Deviation 53.5 36.4-46.3 fL RDW Coefficient of Variation 17.6 11.5-14.5 % Immature Granulocyte % (Auto) 0.3 % Immature Granulocyte # (Auto) 0.03 0.00-0.02 K/uL Red Blood Cell Morphology Unremarkable Prothrombin Time 29.8 9.0-12.0 SECONDS Prothromb Time International Ratio 2.9 0.9-1.1 Sodium Level 142 136-145 mmol/L Potassium Level 3.8 3.5-5.1 mmol/L Chloride Level 107 98-107 mmol/L Carbon Dioxide Level 30 21-32 mmol/L Anion Gap 5.0 3-11 mmol/L Blood Urea Nitrogen 15 7-18 mg/dl Creatinine 0.81 0.60-1.20 mg/dl Est Creatinine Clear Calc Drug Dose 86.7 ml/min Estimated GFR () 92.8 Estimated GFR (Non- 80.1 BUN/Creatinine Ratio 18.7 10-20 Random Glucose 76 70-99 mg/dl Calcium Level 7.3 8.5-10.1 mg/dl Magnesium Level 2.2 1.8-2.4 mg/dl
[2017-12-06] MEDS: LORAZEPAM 1 MG TAB PO SCH (21:00)
[2017-12-06] MEDS: DOCUSATE SODIUM 100 MG CAP PO SCH (21:22)
[2017-12-07] MEDS: HYDROCODONE/ACETAMIN 5/325MG TAB PO PRN ×2 (00:23→07:55)
[2017-12-07 03:16] VITALS: PULSE 71; O2SAT 97
[2017-12-07] MEDS: IPRATROPIUM BROMIDE NEB SOLN 0.02% 2.5 ML VIAL INH SCH ×3 (03:16→11:09)
[2017-12-07 03:17] VITALS: PULSE 71; O2SAT 97
[2017-12-07 06:05] LABS: INR 3.2 (0.9-1.1)
[2017-12-07 06:13] LABS: CALCIUM 8.5 mg/dl (8.5-10.1); CREATININE 0.87 mg/dl (0.60-1.20); POTASSIUM 3.9 mmol/L (3.5-5.1)
[2017-12-07 07:10] LABS: HEMATOCRIT 32.9 % (37-47); HEMOGLOBIN 9.5 g/dL (12.0-16.0); MEAN CELL VOLUME 82.9 fL (80-100); MEAN CORPUSCULAR HEMOGLOBIN 23.9 pg (25-34); MEAN CORPUSCULAR HGB CONC 28.9 g/dl (32-36); MEAN PLATELET VOLUME 10.9 fL (7.4-10.4); PLATELET COUNT 202 K/uL (130-400); RED CELL DISTRIBUTION WIDTH CV 17.4 % (11.5-14.5); RED CELL DISTRIBUTION WIDTH SD 52.7 fL (36.4-46.3); WHITE BLOOD COUNT 9.48 K/uL (4.8-10.8)
[2017-12-07 07:16] VITALS: PULSE 68; O2SAT 98
[2017-12-07 07:17] VITALS: BP 133/82; PULSE 50; TEMP 36.6; O2SAT 97
[2017-12-07 07:37] LABS: BASO % 0.7 %; BASO ABS # 0.07 K/uL (0-0.2); EOS % 2.3 %; EOS ABS # 0.22 K/uL (0-0.5); IG# 0.01 K/uL (0.00-0.02); LYMPH % 36.1 %; LYMPH ABS # 3.42 K/uL (1.2-3.4); MONO % 6.4 %; MONO ABS # 0.61 K/uL (0.11-0.59); NEUT % 54.4 %; NEUT ABS # 5.15 K/uL (1.4-6.5)
[2017-12-07] MEDS: CITALOPRAM 40 MG TAB PO SCH (07:55)
[2017-12-07] MEDS: POTASSIUM CHLORIDE 10 MEQ TABCR PO SCH (07:56)
[2017-12-07] MEDS: LEVETIRACETAM 500 MG TAB PO SCH (07:56)
[2017-12-07] MEDS: PANTOprazole SOD 40 MG TAB PO SCH (07:57)
[2017-12-07] MEDS: FUROSEMIDE 40 MG TAB PO SCH (07:57)
[2017-12-07] MEDS: CYANOCOBALAMIN 500 MCG TAB (VIT B-12) PO SCH (07:58)
[2017-12-07] MEDS: CHOLECALCIFEROL 1000 INTER.UNIT TAB PO SCH (07:58)
[2017-12-07] MEDS: OXCARBAZEPINE 150 MG TAB PO SCH (07:59)
[2017-12-07] MEDS ORDERED: EZETIMIBE 10MG TAB PO SCH (09:00)
[2017-12-07] MEDS ORDERED: ZTA10 PO (10:21)
[2017-12-07 11:11] VITALS: PULSE 59; O2SAT 95
--- NOTE | 2017-12-07 11:48 | Progress Note ---
Internal Med Progress Note Date of Service: Dec 07, 2017. Provider Documentation: SUBJECTIVE: Patient reports today that she is ready to go home. Patient denies worsening shortness of breath. Patient denies chest pain. Patient's INR is 3.1 today. She is instructed to take half of her scheduled coumadin on Friday (usual regimen is coumadin Friday/Friday/Friday as 7.5 mg daily. 5 mg daily for other days) and then resume usual couamdin schedule and follow up with the anticoagulation clinic tomorrow OBJECTIVE: Exam: General- on nasal cannula Eyes- EOMI Neck- trachea midline, no JVD Lungs- fair air entry, no crackles Heart- regular rate Back: left mid right back with tenderness on palpation Abdomen- truncal obesity, soft, nontender, positive bowel sounds Extremities- no edema Neuro- no focal deficits ASSESSMENT & PLAN: 57-year-old female who presents with chest pain. Chest pain, presyncope-like episodes going on since last September. This chest pain is relieved by nitro in the ER. Troponins negative Resting echocardiogram revealed normal resting wall motion. stress echocardiogram was performed. The patient's presenting symptoms of shortness of breath and chest tightness were reproduced with dobutamine infusion and are associated with ST segment depression and a subtle apical wall motion abnormality. So patient was sent to cardiac cath The cardiac cath found 1. Moderate non-obstructive coronary artery disease - 40-50% diffuse mid RCA (iFR 0.98) - 50-60% mid to distal circumflex (iFR 0.99) 2. Normal intracardiac filling pressure No stent required as this was deemed to be a non-obstructive coronary artery disease History of asthma, history of chronic obstructive pulmonary disease; Chronic respiratory failure with hypoxia on home oxygen History of obstructive sleep apnea, on CPAP at bedtime. patient is also chronically on prednisone, continue prednisone for now changing nebulizers from prn to scheduled have provided patient with symptomatic respiratory relief Chronic back pain oral narcotics, have asked nurse to provide warm compresses to back History of depression. Continue Celexa and Ativan p.r.n. History of seizures. Continue Keppra and Trileptal. History of pulmonary embolism, on Coumadin continue coumadin Friday/Friday/Friday as 7.5 mg daily. 5 mg daily for other days History of hypogammaglobulinemia, patient gets IVIGs monthly. History of hyperlipidemia poor lipid profile patient reports she is not on statins because of history of muscle cramps (Per review of her [facility] chart, she has not tolerated trials of atorvastatin , rosuvastatin, fenofibrate, simvastatin, and Pravachol) initiating Zetia 10 mg daily as per cardiology service blood pressure is well controlled. Hold off on beta-gwen and KWAN inhibitor/ ARB given her relatively low blood pressure and sinus bradycardia, and past history of recurrent loss of consciousness episodes. History of recurrent syncope. Cardiac workup continues to be negative. No arrhythmias noted during his hospital stay. UA positive for occult blood; patient is on couamdin and is asymptomatic Deep venous thrombosis prophylaxis, on Coumadin. Discharge Instructions Patient's INR is 3.2 today. She is instructed to take half of her scheduled coumadin on Friday (usual regimen is coumadin Friday/Friday/Friday as 7.5 mg daily. 5 mg daily for other days) and then resume usual couamdin schedule and follow up with the anticoagulation clinic tomorrow Patient has an upcoming appointment on 12/08/2017 6:15 PM [facility] [place] [facility] [place] 12/11/2017 3:30 PM CRISTOPHER Santana [facility] Dr. Canseco on Friday12/12/17 at 8:45 AM [facility] [place] Address: [address] [place], [place] [id number] (Recommend routine cardiology follow-up and interval of perhaps 3 months for ongoing risk factor surveillance as per Dr. Garcia, potash flaker) 12/12/2017 1:20 PM [facility], [place] 12/19/2017 12:30 PM Neurophys Tech Sp Neurophysiology [facility] Please also follow with [facility] pulmonary service Vital Signs: Date Time Temp Pulse Resp B/P (MAP) Pulse Ox O2 Delivery O2 Flow Rate FiO2 12/07/17 11:11 59 16 95 Room Air 12/07/17 07:55 Nasal Cannula 2.0 12/07/17 07:17 36.6 50 18 133/82 (99) 97 CPAP 12/07/17 07:16 68 16 98 BiPAP/CPAP 2.0 12/07/17 03:17 71 97 2.0 12/07/17 03:16 71 14 97 BiPAP/CPAP 2.0 12/07/17 00:29 CPAP 12/06/17 23:06 69 95 2.0 12/06/17 23:05 69 16 95 BiPAP/CPAP 2.0 12/06/17 22:51 37.2 55 20 112/73 (86) 95 CPAP 12/06/17 22:12 68 96 2.0 12/06/17 19:21 64 16 96 Nasal Cannula 2.0 12/06/17 16:51 56 113/73 (86) 69 129/65 (86) 64 119/77 (91) 12/06/17 16:03 98 Nasal Cannula 2.0 12/06/17 15:39 63 16 98 Nasal Cannula 2.0 12/06/17 15:27 36.9 64 18 110/59 (76) 94 Nasal Cannula 2.0 12/06/17 14:05 36.9 57 20 98 2.0 Lab Results: Results Past 24 Hours Test 12/07/17 05:23 Range/Units White Blood Count 9.48 4.8-10.8 K/uL Red Blood Count 3.97 4.2-5.4 M/uL Hemoglobin 9.5 12.0-16.0 g/dL Hematocrit 32.9 37-47 % Mean Corpuscular Volume 82.9 80-100 fL Mean Corpuscular Hemoglobin 23.9 25-34 pg Mean Corpuscular Hemoglobin Concent 28.9 32-36 g/dl Platelet Count 202 130-400 K/uL Mean Platelet Volume 10.9 7.4-10.4 fL Neutrophils (%) (Auto) 54.4 % Lymphocytes (%) (Auto) 36.1 % Monocytes (%) (Auto) 6.4 % Eosinophils (%) (Auto) 2.3 % Basophils (%) (Auto) 0.7 % Neutrophils # (Auto) 5.15 1.4-6.5 K/uL Lymphocytes # (Auto) 3.42 1.2-3.4 K/uL Monocytes # (Auto) 0.61 0.11-0.59 K/uL Eosinophils # (Auto) 0.22 0-0.5 K/uL Basophils # (Auto) 0.07 0-0.2 K/uL RDW Standard Deviation 52.7 36.4-46.3 fL RDW Coefficient of Variation 17.4 11.5-14.5 % Immature Granulocyte % (Auto) 0.1 % Immature Granulocyte # (Auto) 0.01 0.00-0.02 K/uL Tear Drop Cells OCCASIONAL Prothrombin Time 33.0 9.0-12.0 SECONDS Prothromb Time International Ratio 3.2 0.9-1.1 Sodium Level 141 136-145 mmol/L Potassium Level 3.9 3.5-5.1 mmol/L Chloride Level 104 98-107 mmol/L Carbon Dioxide Level 33 21-32 mmol/L Anion Gap 4.0 3-11 mmol/L Blood Urea Nitrogen 16 7-18 mg/dl Creatinine 0.87 0.60-1.20 mg/dl Est Creatinine Clear Calc Drug Dose 80.1 ml/min Estimated GFR () 85.1 Estimated GFR (Non- 73.4 BUN/Creatinine Ratio 18.1 10-20 Random Glucose 83 70-99 mg/dl Calcium Level 8.5 8.5-10.1 mg/dl Magnesium Level 2.3 1.8-2.4 mg/dl
--- NOTE | 2017-12-07 12:18 | Discharge Instructions ---
Discharge Instructions Date of Service Dec 07, 2017. Admission Reason for Admission: Substernal Chest Pain Discharge Discharge Diagnosis / Problem: chest pain; non-obstructive coronary artery disease, chronic O2 use Discharge Goals Goal(s): Decrease discomfort, Improve disease control Activity Recommendations Activity Limitations: per Instructions/Follow-up section . Instructions / Follow-Up Instructions / Follow-Up 57-year-old female who presents with chest pain. Chest pain, presyncope-like episodes going on since last September. This chest pain is relieved by nitro in the ER. Troponins negative Resting echocardiogram revealed normal resting wall motion. stress echocardiogram was performed. The patient's presenting symptoms of shortness of breath and chest tightness were reproduced with dobutamine infusion and are associated with ST segment depression and a subtle apical wall motion abnormality. So patient was sent to cardiac cath The cardiac cath found 1. Moderate non-obstructive coronary artery disease - 40-50% diffuse mid RCA (iFR 0.98) - 50-60% mid to distal circumflex (iFR 0.99) 2. Normal intracardiac filling pressure No stent required as this was deemed to be a non-obstructive coronary artery disease History of asthma, history of chronic obstructive pulmonary disease; Chronic respiratory failure with hypoxia on home oxygen History of obstructive sleep apnea, on CPAP at bedtime. patient is also chronically on prednisone, continue prednisone for now changing nebulizers from prn to scheduled have provided patient with symptomatic respiratory relief Chronic back pain oral narcotics, have asked nurse to provide warm compresses to back History of depression. Continue Celexa and Ativan p.r.n. History of seizures. Continue Keppra and Trileptal. History of pulmonary embolism, on Coumadin continue coumadin Friday/Friday/Friday as 7.5 mg daily. 5 mg daily for other days History of hypogammaglobulinemia, patient gets IVIGs monthly. History of hyperlipidemia poor lipid profile patient reports she is not on statins because of history of muscle cramps (Per review of her [place] [facility] chart, she has not tolerated trials of atorvastatin , rosuvastatin, fenofibrate, simvastatin, and Pravachol) initiating Zetia 10 mg daily as per cardiology service blood pressure is well controlled. Hold off on beta-gwen and KWAN inhibitor/ ARB given her relatively low blood pressure and sinus bradycardia, and past history of recurrent loss of consciousness episodes. History of recurrent syncope. Cardiac workup continues to be negative. No arrhythmias noted during his hospital stay. UA positive for occult blood; patient is on couamdin and is asymptomatic Deep venous thrombosis prophylaxis, on Coumadin. Discharge Instructions Patient's INR is 3.2 today. She is instructed to take half of her scheduled coumadin on Friday (usual regimen is coumadin Friday/Friday/Friday as 7.5 mg daily. 5 mg daily for other days) and then resume usual couamdin schedule and follow up with the anticoagulation clinic tomorrow Patient has an upcoming appointment on 12/08/2017 6:15 PM [facility] [place] [facility] [place] 12/11/2017 3:30 PM CRISTOPHER Santana [facility] Dr. Canseco on Friday12/12/17 at 8:45 AM [facility]iology [place] Address: [address] [place] [address] [place] [address] (Recommend routine cardiology follow-up and interval of perhaps 3 months for ongoing risk factor surveillance as per Dr. Garcia, filler shredder helper) 12/12/2017 1:20 PM [facility] [place] [facility], [place] 12/19/2017 12:30 PM Neurophys Tech Neurophysiology [facility] Please also follow with [facility] pulmonary service Current Hospital Diet Patient's current hospital diet: AHA Diet (Heart Healthy) Discharge Diet Recommended Diet: AHA Diet (Heart Healthy) Pending Studies Studies pending at discharge: no Laboratory Results 12/07/17 05:23 Red Blood Count 3.97, Mean Corpuscular Volume 82.9, Mean Corpuscular Hemoglobin 23.9, Mean Corpuscular Hemoglobin Concent 28.9, Mean Platelet Volume 10.9, Neutrophils (%) (Auto) 54.4, Lymphocytes (%) (Auto) 36.1, Monocytes (%) (Auto) 6.4, Eosinophils (%) (Auto) 2.3, Basophils (%) (Auto) 0.7, Neutrophils # (Auto) 5.15, Lymphocytes # (Auto) 3.42, Monocytes # (Auto) 0.61, Eosinophils # (Auto) 0.22, Basophils # (Auto) 0.07 12/07/17 05:23 Test 12/04/17 17:45 12/04/17 19:10 12/05/17 07:39 12/05/17 12:41 Polychromasia 1+ Hypochromasia PRESENT Ovalocytes 1+ Activated Partial Thromboplast Time 43.8 SECONDS (21.0-31.0) Partial Thromboplastin Ratio 1.7 Total Bilirubin 0.2 mg/dl (0.2-1) Direct Bilirubin < 0.1 mg/dl (0-0.2) Aspartate Amino Transf (AST/SGOT) 14 U/L (15-37) Alanine Aminotransferase (ALT/SGPT) 23 U/L (12-78) Alkaline Phosphatase 42 U/L (45-117) Total Creatine Kinase 43 U/L (26-192) Total Protein 7.0 gm/dl (6.4-8.2) Albumin 3.3 gm/dl (3.4-5.0) Lipase 138 U/L (73-393) Thyroid Stimulating Hormone (TSH) 0.324 uIu/ml (0.300-4.500) Urine Color YELLOW Urine Appearance CLEAR (CLEAR) Urine pH 7.5 (4.5-7.5) Urine Specific Hedrick 1.007 (1.000-1.030) Urine Protein NEG (NEG) Urine Glucose (UA) NEG (NEG) Urine Ketones NEG (NEG) Urine Occult Blood 3+ (NEG) Urine Nitrite NEG (NEG) Urine Bilirubin NEG (NEG) Urine Urobilinogen NEG (NEG) Urine Leukocyte Esterase NEG (NEG) Urine WBC (Auto) 0 /hpf (0-5) Urine RBC (Auto) >30 /hpf (0-4) Urine Hyaline Casts (Auto) 0 /lpf (0-5) Urine Epithelial Cells (Auto) 5-10 /lpf (0-5) Urine Bacteria (Auto) NEG (NEG) Triglycerides Level 419 mg/dl (0-150) Cholesterol Level 377 mg/dl (0-200) HDL Cholesterol 52 mg/dl LDL Cholesterol, Calculated mg/dl VLDL Cholesterol, Calculated mg/dl Cholesterol/HDL Ratio 7.3 Creatine Kinase MB Ratio (0-3.0) Test 12/05/17 14:07 12/06/17 06:47 12/07/17 05:23 Creatine Kinase MB < 1.0 ng/ml (0.5-3.6) Troponin I 0.036 ng/ml (0-0.045) Red Blood Cell Morphology Unremarkable White Blood Count 9.48 K/uL (4.8-10.8) Red Blood Count 3.97 M/uL (4.2-5.4) Hemoglobin 9.5 g/dL (12.0-16.0) Hematocrit 32.9 % (37-47) Mean Corpuscular Volume 82.9 fL (80-100) Mean Corpuscular Hemoglobin 23.9 pg (25-34) Mean Corpuscular Hemoglobin Concent 28.9 g/dl (32-36) Platelet Count 202 K/uL (130-400) Mean Platelet Volume 10.9 fL (7.4-10.4) Neutrophils (%) (Auto) 54.4 % Lymphocytes (%) (Auto) 36.1 % Monocytes (%) (Auto) 6.4 % Eosinophils (%) (Auto) 2.3 % Basophils (%) (Auto) 0.7 % Neutrophils # (Auto) 5.15 K/uL (1.4-6.5) Lymphocytes # (Auto) 3.42 K/uL (1.2-3.4) Monocytes # (Auto) 0.61 K/uL (0.11-0.59) Eosinophils # (Auto) 0.22 K/uL (0-0.5) Basophils # (Auto) 0.07 K/uL (0-0.2) RDW Standard Deviation 52.7 fL (36.4-46.3) RDW Coefficient of Variation 17.4 % (11.5-14.5) Immature Granulocyte % (Auto) 0.1 % Immature Granulocyte # (Auto) 0.01 K/uL (0.00-0.02) Tear Drop Cells OCCASIONAL Prothrombin Time 33.0 SECONDS (9.0-12.0) Prothromb Time International Ratio 3.2 (0.9-1.1) Anion Gap 4.0 mmol/L (3-11) Est Creatinine Clear Calc Drug Dose 80.1 ml/min Estimated GFR () 85.1 Estimated GFR (Non- 73.4 BUN/Creatinine Ratio 18.1 (10-20) Calcium Level 8.5 mg/dl (8.5-10.1) Magnesium Level 2.3 mg/dl (1.8-2.4) Date/Time Source Procedure Growth Status 12/04/17 19:10 Urine , Clean Catch Urine Culture - Final THREE TYPES OF ORGANISMS PRESENT, ALL... Complete Lipid Panel Test 12/05/17 07:39 Range/Units Triglycerides Level 419 H 0-150 mg/dl Cholesterol Level 377 H 0-200 mg/dl HDL Cholesterol 52 mg/dl Cholesterol/HDL Ratio 7.3 LDL Cholesterol, Calculated mg/dl Medical Emergencies . Who to Call and When: Medical Emergencies: If at any time you feel your situation is an emergency, please call 911 immediately. . Non-Emergent Contact Non-Emergency issues call your: Primary Care Provider, Mobile Plant Operators Call Non-Emergent contact if: you have any medication questions . . "Provider Documentation" section prepared by Waldemar Jeffery. .
--- NOTE | 2017-12-07 12:20 | Discharge Summary ---
Discharge Summary Date of Service Dec 07, 2017. Discharge Summary Admission Date: Dec 06, 2017 at 16:26 Discharge Date: Dec 07, 2017 Discharge Disposition: Home Principal Diagnosis: chest pain; non-obstructive coronary artery disease Secondary Diagnoses/Problems: History of asthma, history of chronic obstructive pulmonary disease; Chronic respiratory failure with hypoxia on home oxygen History of obstructive sleep apnea, on CPAP at bedtime. Chronic back pain History of depression. History of seizures. History of pulmonary embolism, on Coumadin History of hypogammaglobulinemia hyperlipidemia Medication Reconciliation New Medications: Ezetimibe (Zetia) 10 Mg Tab 10 MG PO QAM for 30 Days, #30 TAB Continued Medications: Acetaminophen/Hydrocodone (Hydrocodone/Acetaminophen 5-325 mg) 1 Ea Tab 2 TAB PO Q6H PRN for Pain Albuterol Hfa (Ventolin Hfa) 200 Puffs/76007 Mcg Aers 2 PUFFS INH Q6H PRN for SOB/Wheezing Cholecalciferol (Vitamin D) 1,000 Unit Tab 2000 INTER.UNIT PO BID Citalopram (Citalopram Hydrobromide) 40 Mg Tab 40 MG PO QAM Cyanocobalamin (Vitamin B-12) 1,000 Mcg Tab 1000 MCG PO QAM Docusate Sodium (Colace) 100 Mg Cap 200 MG PO HS Epinephrine (Epipen 2-Deshawn) 0.3 Mg Inj 0.3 MG IM UD PRN for ALLERGIC REACTION Furosemide (Furosemide) 40 Mg Tab 40 MG PO QAM TAKE WITH POTASSIUM Home O2 Therapy (Oxygen) Gas 2 LITERS NA CONTINOUS Immune Globulin (Human) Iv (Privigen) 5 Gm/50 Ml Inj 1 DOSE IV MONTHLY Ipratropium [place] (Ipratropium [place]) 1 Ea Nebu 0.5 MG INH Q4H PRN for SOB/Wheezing Levetiracetam (Keppra) 500 Mg Tab 500 MG PO BID Lorazepam (Lorazepam) 1 Mg Tab 1 MG PO DAILY PRN for Anxiety Lorazepam (Lorazepam) 1 Mg Tab 2 MG PO HS Omeprazole (Prilosec) 20 Mg Cap 20 MG PO BID Oxcarbazepine (Trileptal) 150 Mg Tab 150 MG PO BID Polyethylene Glycol 3350 (Miralax) 1 Pow Pow 17 GM PO DAILY PRN for Constipation Potassium Chloride (Micro-K Ext Rel) 10 Meq Capcr 10 MEQ PO BID Prednisone (Prednisone) 20 Mg Tab 20 MG PO QAM Warfarin Sodium (Warfarin Sodium) 5 Mg Tab 5 MG PO UD [id number] Warfarin Sodium (Warfarin Sodium) 5 Mg Tab 7.5 MG PO UD [id number] Admission Information HPI (per Admitting provider): CHIEF COMPLAINT: Chest pain. HISTORY OF PRESENT ILLNESS: This is a 57-year-old female with past medical history significant for asthma, COPD, obstructive sleep apnea on CPAP, history of depression, GERD, PE on Coumadin, chronic respiratory failure, history of syncope, hyperlipidemia, seizures. Presents with chest pain. The patient says since September she is having presyncope like episodes, 2 or 3 episodes every day, where she feels like falling down and she has to sit on a chair and when she checks her blood pressure, it is all over the place. Today she was trying to get up to put eyedrops on her when on the way she started to feel like passing out and she sat in a chair.Also had some chest pain. At times, she has had chest tightness, which she feels like when she has asthma, but it was more severe, and this worried her and she came to the ER. With the DuoNebs, her chest pressure went away, but she still had chest pain, and she was given nitro that relieved her pain. Currently resting comfortably and hemodynamically stable. Currently has chronic back pain from her T11 spine fracture in the past. Denies any headaches. No blurred vision, no earache, no runny nose, no sore throat, no cough, no shortness of breath currently, no nausea, no vomiting, no abdominal pain. Normal appetite. Normal bowel and bladder movements. ambulating okay. Currently hemodynamically stable. The patient has a history of recurrent admissions for asthma exacerbations. ALLERGIES: ASPIRIN, IBUPROFEN, IV DYE, LEVOFLOXACIN, AMBIEN, GABAPENTIN, LYRICA. PAST MEDICAL HISTORY: As mentioned above. PAST SURGICAL HISTORY: Bronchoscopy, colonoscopy, carpal tunnel surgery, colostomy later reversed, cardiac catheterization, dilatation and curettage, EGD with biopsy, exploratory laparotomy, abdominal hernia repair with mesh implantation, laparoscopic cholecystectomy, partial colectomy with anastomosis, appendectomy, repair of recurrent incisional hernia, sinus surgery, vaginal hysterectomy. MEDICATIONS: The patient is on vitamin D 2000 units p.o. daily, Willard 5/325 mg 1-2 tablets every 6 hours p.r.n., Ativan 1 mg in the morning and 2 mg at bedtime, Trileptal 150 mg p.o. b.i.d., Keppra 500 mg p.o. b.i.d., Lasix 40 mg p.o. daily, potassium chloride 10 mEq p.o. b.i.d., prednisone 20 mg p.o. daily, Coumadin 5 mg daily except Friday on which she takes 7.5 mg, levalbuterol every 4 hours p.r.n., oxygen 2 liters as directed, Celexa 40 mg p.o. daily, omeprazole 20 mg p.o. b.i.d., Ventolin 2 puffs q. 4 hours p.r.n., MiraLax 17 grams p.o. daily p.r.n., Colace 200 mg p.o. at bedtime, Privigen IVIG monthly, cyanocobalamin 1000 mcg p.o. daily, epinephrine p.r.n. allergic reactions. FAMILY HISTORY: Significant for mother who had asthma, hypercholesterolemia. Father had AK, at the age of 49. Mother also has hypotension, sleep apnea, peripheral vascular disease. SOCIAL HISTORY: Former smoker, quit in 2003, prior to that smoked 1 pack a day for 30 years. No alcohol use, no drug use. , lives with her . REVIEW OF SYMPTOMS: As per HPI. Rest of the review of symptoms negative. Physical Exam (per Admitting): PHYSICAL EXAMINATION: GENERAL: The patient is of moderate build, not in distress. VITAL SIGNS: Temperature 36.4, pulse 56, respiratory rate 16, blood pressure 134/83, oxygen 97% on 2 liters. HEENT: No pallor, no icterus. Pupils equal, round, reactive. NECK: No JVD, no neck masses, no carotid bruits. CARDIOVASCULAR: S1, S2 heard, regular rate and rhythm, no murmur, no gallop. RESPIRATORY SYSTEM: Clear to auscultation bilaterally. No wheezing, no crackles. ABDOMEN: Soft, bowel sounds present. Nontender. No distention. CENTRAL NERVOUS SYSTEM: Cranial nerves II through XII are grossly intact. Nonfocal. EXTREMITIES: No edema, no erythema. Hospital Course 57-year-old female who presents with chest pain. Chest pain, presyncope-like episodes going on since last September. This chest pain is relieved by nitro in the ER. Troponins negative Resting echocardiogram revealed normal resting wall motion. stress echocardiogram was performed. The patient's presenting symptoms of shortness of breath and chest tightness were reproduced with dobutamine infusion and are associated with ST segment depression and a subtle apical wall motion abnormality. So patient was sent to cardiac cath The cardiac cath found 1. Moderate non-obstructive coronary artery disease - 40-50% diffuse mid RCA (iFR 0.98) - 50-60% mid to distal circumflex (iFR 0.99) 2. Normal intracardiac filling pressure No stent required as this was deemed to be a non-obstructive coronary artery disease History of asthma, history of chronic obstructive pulmonary disease; Chronic respiratory failure with hypoxia on home oxygen History of obstructive sleep apnea, on CPAP at bedtime. patient is also chronically on prednisone, continue prednisone for now changing nebulizers from prn to scheduled have provided patient with symptomatic respiratory relief Chronic back pain oral narcotics, have asked nurse to provide warm compresses to back History of depression. Continue Celexa and Ativan p.r.n. History of seizures. Continue Keppra and Trileptal. History of pulmonary embolism, on Coumadin continue coumadin Friday/Friday/Friday as 7.5 mg daily. 5 mg daily for other days History of hypogammaglobulinemia, patient gets IVIGs monthly. History of hyperlipidemia poor lipid profile patient reports she is not on statins because of history of muscle cramps (Per review of her [facility] chart, she has not tolerated trials of atorvastatin , rosuvastatin, fenofibrate, simvastatin, and Pravachol) initiating Zetia 10 mg daily as per cardiology service blood pressure is well controlled. Hold off on beta-gwen and KWAN inhibitor/ ARB given her relatively low blood pressure and sinus bradycardia, and past history of recurrent loss of consciousness episodes. History of recurrent syncope. Cardiac workup continues to be negative. No arrhythmias noted during his hospital stay. UA positive for occult blood; patient is on couamdin and is asymptomatic Deep venous thrombosis prophylaxis, on Coumadin. Discharge Instructions Patient's INR is 3.2 today. She is instructed to take half of her scheduled coumadin on Friday (usual regimen is coumadin Friday/Friday/Gavin as 7.5 mg daily. 5 mg daily for other days) and then resume usual couamdin schedule and follow up with the anticoagulation clinic tomorrow Patient has an upcoming appointment on 12/08/2017 6:15 PM [facility] [place] [facility], [place] 12/11/2017 3:30 PM CRISTOPHER Santana [facility] Dr. Canseco on Friday12/12/17 at 8:45 AM [facility] Cardiology [place] Address: [address] [place] [address] [place] [address] (Recommend routine cardiology follow-up and interval of perhaps 3 months for ongoing risk factor surveillance as per Dr. Garcia, leasing assistant) 12/12/2017 1:20 PM [facility] [place] [facility], [place] 12/19/2017 12:30 PM Neurophys Tech Sp Neurophysiology [facility] Please also follow with [facility] pulmonary service Total time spent on discharge = This includes examination of the patient, discharge planning, medication reconciliation, and communication with other providers. Discharge Instructions see above
[2017-12-07 12:40] VITALS: BP 133/82; PULSE 59; TEMP 36.6; O2SAT 95
--- NOTE | 2017-12-09 15:06 | ECHOCARDIOGRAM REPORT ---
*NOTICE TO RECEIVING REPUBLICAN AGENCY This information is strictly Confidential and protected under [place] law. [place] law prohibits you from making any further disclosure of this information unless further disclosure is expressly permitted by the written consent of the person to whom it pertains or is authorized by law. A general authorization for the release of medical or other information is not sufficient for this purpose. Hospital accepts no responsibility if the information is made available to any other person, INCLUDING THE PATIENT. Interpretation Summary * Name: TOÑA BORREGO Study Date: 12/05/2017 07:51 AM BP: 128/82 mmHg * Patient Location: [facility]\S\N277\S\2 HR: 79 * : 1960 (M/d/yyyy) Gender: Female Height: 65 in * Age: 57 yrs Ethnicity: [place] Weight: 207 lb * Ordering Physician: Rolo Montgomery * Referring Physician: Self, Referred * Performed By: José Miguel Evans RCS * * Reason For Study: Chest pain * BSA: 2.0 m2 * -- Conclusions -- * There is normal left ventricular wall thickness. * No regional wall motion abnormalities noted. * The LV Ejection Fraction = 60-65%. * There is no significant valvular heart disease. * The right ventricular chamber size and systolic function are normal. Procedure Details * A complete two-dimensional transthoracic echocardiogram was performed (2D, M-mode, Doppler and color flow Doppler). * A contrast injection of Definity was performed to improve assessment of LV function. * Contrast was injected into a port. * One vial of Definity ultrasound contrast was diluted in normal saline to a total volume of 10 ml. A total of '1' ml of solution was administered during imaging. * Lot # [id number] of Definity utilized for procedure. * Expiration date 1JUL19. * The attending nurse who injected the contrast agent was Kenzie Garza RN. Left Ventricle * The left ventricle is normal in size. * There is normal left ventricular wall thickness. * Left ventricular systolic function is normal. * Ejection Fraction = 60-65%. * The left ventricular wall motion is normal. * No regional wall motion abnormalities noted. Right Ventricle * The right ventricle is normal size. * The right ventricular systolic function is normal as assessed by tricuspid annular plane systolic excursion (TAPSE) (normal >1.5 cm). Atria * The left atrial size is normal. * Right atrial size is normal. * There is no evidence of atrial septal defect, but resolution does not allow assessment for a patent foramen ovale. Mitral Valve * The mitral valve is normal. * There is no mitral valve stenosis. * Significant mitral regurgitation is absent. Tricuspid Valve * The tricuspid valve is normal. * There is no tricuspid stenosis. * Significant tricuspid regurgitation is absent. * Doppler findings do not suggest pulmonary hypertension. Aortic Valve * The aortic valve is trileaflet. * Aortic stenosis is absent. * There is no significant aortic regurgitation. Pulmonic Valve * The pulmonary valve is not well seen, but the Doppler examination is normal without significant regurgitation or stenosis. Great Vessels * The aortic root and proximal ascending aorta are normal sized. Pericardium/Pleural * There is no pericardial effusion. Great Vessels * Normal inferior vena cava diameter and respiratory variation suggests normal central venous pressure. Left Ventricular Diastolic Function * Grade I diastolic dysfunction, (abnormal relaxation pattern). MMode 2D Measurements and Calculations IVSd 1.0 cm IVSs 1.3 cm LVIDd 4.6 cm LVIDs 2.8 cm LVPWd 1.1 cm LVPWs 1.3 cm IVS/LVPW 0.91 FS 39.8 % EDV(Teich) 97.6 ml ESV(Teich) 28.8 ml EF(Teich) 70.5 % EDV(cubed) 97.6 ml ESV(cubed) 21.3 ml EF(cubed) 78.2 % % IVS thick 25.5 % % LVPW thick 20.3 % LV mass(C)d 170.9 grams LV mass(C)dI 85.1 grams/m\S\2 LV mass(C)s 110.9 grams LV mass(C)sI 55.2 grams/m\S\2 SV(Teich) 68.8 ml SI(Teich) 34.3 ml/m\S\2 SV(cubed) 76.4 ml SI(cubed) 38.0 ml/m\S\2 Ao root diam 3.4 cm Ao root area 9.1 cm\S\2 ACS 1.8 cm LA dimension 4.1 cm asc Aorta Diam 3.1 cm LA/Ao 1.2 EDV(MOD-sp4) 89.0 ml ESV(MOD-sp4) 27.6 ml EF(MOD-sp4) 69.0 % EDV(MOD-sp2) 83.2 ml ESV(MOD-sp2) 22.9 ml EF(MOD-sp2) 72.5 % SV(MOD-sp4) 61.4 ml SI(MOD-sp4) 30.6 ml/m\S\2 SV(MOD-sp2) 60.3 ml SI(MOD-sp2) 30.0 ml/m\S\2 Doppler Measurements and Calculations MV E max nabil 96.6 cm/sec MV A max nabil 84.3 cm/sec MV E/A 1.1 MV P1/2t max nabil 103.5 cm/sec MV P1/2t 63.4 msec MVA(P1/2t) 3.5 cm\S\2 MV dec slope 478.6 cm/sec\S\2 MV dec time 0.20 sec Ao V2 max 117.3 cm/sec Ao max PG 5.5 mmHg Ao max PG (full) 1.6 mmHg LV V1 max PG 3.9 mmHg LV V1 max 99.3 cm/sec PA V2 max 90.6 cm/sec PA max PG 3.3 mmHg
--- NOTE | 2017-12-09 15:15 | DOBUTAMINE ECHO ---
*NOTICE TO RECEIVING CONSTITUTION PARTY AGENCY This information is strictly Confidential and protected under [place] law. [place] law prohibits you from making any further disclosure of this information unless further disclosure is expressly permitted by the written consent of the person to whom it pertains or is authorized by law. A general authorization for the release of medical or other information is not sufficient for this purpose. Hospital accepts no responsibility if the information is made available to any other person, INCLUDING THE PATIENT. Interpretation Summary * Name: TOÑA BORREGO Study Date: 12/05/2017 09:29 AM BP: 142/78 mmHg * Patient Location: [facility]\S\N277\S\2 HR: 63 * : 1960 (M/d/yyyy) Gender: Female Height: 65 in * Age: 57 yrs Ethnicity: [place] Weight: 211 lb * Ordering Physician: Kristian Garcia DO, [facility] * Performed By: Yessica Castaneda [facility] * * Reason For Study: CHEST PAIN * BSA: 2.0 m2 * -- Conclusions -- * Stress study: * Abnormal pharmacologic stress echocardiogram with presenting symptoms of chest tightness and shortness of breath reproduced, EKG changes suggestive of ischemia, and a subtle apical, apical inferoseptal wall motion abnormality noted at peak stress. * The patient's symptoms and EKG changes resolved in the post stress recovery interval. She left the department in stable condition without complaints. Procedure Details * DOBUTAMINE ECHO, CPT#31280 * A contrast injection of Definity was performed to improve assessment of LV function. * Contrast was injected into an intravenous site in the central line. * One vial of Definity ultrasound contrast was diluted in normal saline to a total volume of 10 ml. A total of '7' ml of solution was administered during imaging. * Lot # [id number] of Definity utilized for procedure. * Expiration date 11/27. * The attending nurse who injected the contrast agent was SERA PEDERSEN RN. Left Ventricle * The left ventricle is normal in size. There is normal left ventricular wall thickness. Left ventricular systolic function is normal at rest. The resting left ventricular ejection Fraction = 60-65%. * Left ventricular ejection fraction increased appropriately with pharmacologic stress. There is a subtle apical/apical inferoseptal wall motion abnormality noted on the peak stress images and in the post pharmacologic stress recovery interval. Stress Parameters * Normal baseline electrocardiogram. * Stress EKG response pharmacologic stress was abnormal with development of 1-1.5 mm horizontal and upsloping ST segment depression in the inferior and lateral leads at peak stress that correlated with the patient's subjective report of chest tightness. * The stress portion of this study was personally supervised by the undersigned interpreting physician. * Rest heart rate was '63' BPM. * Rest blood pressure was '142/78' * Maximum heart rate achieved was 144 bpm. * Maximum heart rate was 88 % of maximum age-predicted heart rate. * Maximum blood pressure was '182/72' * Total exercise time was '11:42' * Maximum Dobutamine infusion rate was '40' mcg/kg/min. * Dobutamine infusion was terminated due to achieving target heart rate * A total of 5 mg of IV Metoprolol was administered to reverse Dobutamine-induced tachycardia. * The patient exhibited shortness of breath and chest tightness during the drug infusion. Target heart rate achieved.
== END 2017-12-07 14:15 | disposition home or self-care (01) | DRG 287 ==
LOC: C.EDB 16:20 → C.MED 20:54 → ENRESERV 21:21 → C.2T 12-05 13:01 → ENRESERV 12-06 14:22 → C.MS2W 12-06 15:25 → OBSVTOIN 12-06 16:26
PROVIDERS: ADMIT Hospitalist; ATTEND Hospitalist
PROC: B2111ZZ Fluoroscopy of Multiple Coronary Arteries using Low Osmolar Contrast (ICD-10-PCS; principal; 2017-12-05 11:18)
PROC: 4A023N7 Measurement of Cardiac Sampling and Pressure, Left Heart, Percutaneous Approach (ICD-10-PCS; principal; 2017-12-05 11:18)
DX: R07.9 Chest pain, unspecified (principal); J96.11 Chronic respiratory failure with hypoxia; D80.1 Nonfamilial hypogammaglobulinemia; I25.10 Atherosclerotic heart disease of native coronary artery without angina pectoris; R55 Syncope and collapse; R31.9 Hematuria, unspecified; R00.1 Bradycardia, unspecified; J44.9 Chronic obstructive pulmonary disease, unspecified; R56.9 Unspecified convulsions; K21.9 Gastro-esophageal reflux disease without esophagitis; G89.29 Other chronic pain; M54.9 Dorsalgia, unspecified; S22.089S Unspecified fracture of T11-T12 vertebra, sequela; X58.XXXS Exposure to other specified factors, sequela; G47.33 Obstructive sleep apnea (adult) (pediatric); F32.9 Major depressive disorder, single episode, unspecified; Z99.81 Dependence on supplemental oxygen; Z99.89 Dependence on other enabling machines and devices; Z86.711 Personal history of pulmonary embolism; Z87.891 Personal history of nicotine dependence; Z82.49 Family history of ischemic heart disease and other diseases of the circulatory system; Z79.52 Long term (current) use of systemic steroids; Z79.01 Long term (current) use of anticoagulants; Z79.899 Other long term (current) drug therapy; Z88.1 Allergy status to other antibiotic agents; Z88.6 Allergy status to analgesic agent; Z88.8 Allergy status to other drugs, medicaments and biological substances; Z91.041 Radiographic dye allergy status

== ENCOUNTER 2018-06-08 07:53 | Observation (INO) ==
--- NOTE | 2018-05-28 16:24 | PAT Medication Instructions ---
Medication Instructions Date of Service May 28, 2018 Home Medications Medication Instructions Recorded prednisone 20 mg PO QAM #0 tab 03/15/18 albuterol sulfate [Ventolin HFA] 2 puff INHALATION Q6H PRN cholecalciferol (vitamin D3) 2,000 unit PO DAILY citalopram [Celexa] 40 mg PO QAM cyanocobalamin (vitamin B-12) 1,000 mcg PO QAM docusate sodium [Colace] 200 mg PO HS epinephrine [EpiPen] 0.3 mg IM UD PRN furosemide [Lasix] 40 mg PO Q OTHER DAY hydrocodone-acetaminophen [[place]] 1 tab PO Q8H PRN immun glob G(IgG)-pro-IgA 0-50 [Privigen] nitroglycerin [Nitrostat] 1 tab SUBLINGUAL UD PRN omeprazole magnesium [Prilosec OTC] 20 mg PO BID polyethylene glycol 3350 [Miralax] 17 g PO UD PRN potassium chloride 10 meq PO UD prednisone 20 mg PO QAM Continue as directed epinephrine [EpiPen] 0.3 mg IM UD PRN immun glob G(IgG)-pro-IgA 0-50 [Privigen] nitroglycerin [Nitrostat] 1 tab SUBLINGUAL UD PRN DO NOT take the morning of surgery cholecalciferol (vitamin D3) 2,000 unit PO DAILY cyanocobalamin (vitamin B-12) 1,000 mcg PO QAM furosemide [Lasix] 40 mg PO Q OTHER DAY polyethylene glycol 3350 [Miralax] 17 g PO UD PRN potassium chloride 10 meq PO UD Take morning of surgery With a small sip of water, OTHERWISE NOTHING TO EAT OR DRINK AFTER MIDNIGHT: albuterol sulfate [Ventolin HFA] 2 puff INHALATION Q6H PRN (if needed, AND BRING WITH YOU INTO THE HOSPITAL) citalopram [Celexa] 40 mg PO QAM hydrocodone-acetaminophen [[place]] 1 tab PO Q8H PRN (if needed, may be taken up to four hours before surgery) omeprazole magnesium [Prilosec OTC] 20 mg PO BID prednisone 20 mg PO QAM Take evening before surgery albuterol sulfate [Ventolin HFA] 2 puff INHALATION Q6H PRN (if needed) docusate sodium [Colace] 200 mg PO HS hydrocodone-acetaminophen [[place]] 1 tab PO Q8H PRN (if needed) omeprazole magnesium [Prilosec OTC] 20 mg PO BID polyethylene glycol 3350 [Miralax] 17 g PO UD PRN (if needed) Other Notes If you have any questions please call us at [phone] or [phone] or [phone] or [phone]
--- NOTE | 2018-05-29 11:36 | Anesthesiology Consultation ---
Date of Service May 29, 2018 Assessment & Plan (1) Encounter for pre-operative examination: Plan: *CAUTION WITH POSITIONING, PT HAS B/L RIB FRACTURES. States she has been able to sleep on her sides without issues but still mildly tender to palpation.* CARDIO CLEARANCE 05/25/18: "Ms Carey Mahajan is cleared to have her upcoming kyphoplasty from a cardiac perspective." Chart Review Chart Review: Acceptable Risk for Surgery and Patient seen in Pre Admission Testing Teaching & Discussion Instructed NPO after midnight before surgery, except medications with 15 cc of water. Medication instructions provided according to the PAT guidelines. History Surgery Operation Date: 06/08/18 12:10 Proposed Procedures p T7 Kyphoplasty - Benny Singh, Height/Weight Height: 5 ft 5 in Weight: 94.6 kg Allergies Allergy/AdvReac Type Severity Reaction Status Date / Time aspirin Allergy Intermediate HIVES Verified 03/03/18 16:45 ibuprofen Allergy Intermediate HIVES Verified 03/03/18 16:45 levofloxacin Allergy Intermediate HIVES Verified 03/03/18 16:45 Iodinated Contrast- Oral and Allergy Unknown IV ONLY - Verified 05/27/18 13:19 IV Dye HIVES pregabalin AdvReac Intermediate SEVERE Verified 03/03/18 16:45 DEPRESSION zolpidem AdvReac Intermediate HALLUCINATI Verified 03/03/18 16:45 ONS gabapentin AdvReac Mild GOOFY Verified 03/03/18 16:45 THOUGHTS Medications Home Medications Medication Instructions Recorded Confirmed Last Taken albuterol sulfate [Ventolin HFA] 2 puff INHALATION Q6H PRN 03/03/18 05/27/18 Unknown cholecalciferol (vitamin D3) 2,000 unit PO DAILY 03/03/18 05/27/18 03/03/18 citalopram [Celexa] 40 mg PO QAM 03/03/18 05/27/18 03/03/18 cyanocobalamin (vitamin B-12) 1,000 mcg PO QAM 03/03/18 05/27/18 03/03/18 docusate sodium [Colace] 200 mg PO HS 03/03/18 05/27/18 03/02/18 epinephrine [EpiPen] 0.3 mg IM UD PRN 03/03/18 05/27/18 Unknown furosemide [Lasix] 40 mg PO Q OTHER DAY 1005/27/18 03/02/18 hydrocodone-acetaminophen [[place]] 1 tab PO Q8H PRN 03/03/18 05/27/18 03/03/18 immun glob G(IgG)-pro-IgA 0-50 See Label Instructions .ROUTE 03/03/18 05/27/18 05/20/18 [Privigen] .COMPLEX nitroglycerin [Nitrostat] 1 tab SUBLINGUAL UD PRN 03/03/18 05/27/18 Unknown omeprazole magnesium [Prilosec OTC] 20 mg PO BID 03/03/18 05/27/18 03/02/18 polyethylene glycol 3350 [Miralax] 17 g PO UD PRN 03/03/18 05/27/18 Unknown potassium chloride 10 meq PO UD 03/03/18 05/27/18 03/03/18 prednisone 20 mg PO QAM #0 tab 03/15/18 05/27/18 05/27/18 Past Medical History Medical History History of pulmonary embolism (Chronic) 03/2015 post-op, then again spontaneously 02/2018. On Coumadin. 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 Follows with pulm. On chronic steroids Prednisone 20mg and albuterol prn. Has not used albuterol since last hospital admission 03/2018. CAD (coronary artery disease) (Chronic) Nonobstructive by cardiac cath 11/2017 Chronic back pain (Chronic) H/O adrenal insufficiency (Chronic) Hypogammaglobulinemia (Chronic) Osteoporosis (Chronic) Sleep apnea (Chronic) With hypoxemia. Using CPAP with O2 HS Anemia Baseline 9-10 Orthostatic hypotension Rib fractures 2 on left, 1 on right, 2/2 fall from orthostatic hypotension 03/16. Ribs still mildly tender. Also fractured L wrist Past Family History Family History Mother HTN (hypertension) Father CAD (coronary artery disease) Past Surgical History Surgical History H/O dilation and curettage (Chronic) H/O exploratory laparotomy (Chronic) Organ biopsies for suspected Hodgkins lymphoma, long time ago H/O right knee surgery (Chronic) H/O sinus surgery (Chronic) H/O: hysterectomy (Chronic) History of appendectomy (Chronic) History of bronchoscopy (Chronic) "for mucous plugs" History of carpal tunnel surgery (Chronic) History of bronchoscopy "BRONCHIAL THERMOPLASTY" History of cardiac catheterization 2017...CHEST TIGHTNESS.ABNORMAL STRESS...[facility]..BLOCKAGES 50 % 60% - NO STENT(S) FEW YEARS AGO...CHEST DISCOMFORT...[place]...NO FINDINGS History of cholecystectomy History of colectomy COLOSTOMY AND REVERSAL History of colonoscopy History of hernia repair MULTIPLE Status post wrist surgery For fracture repair L wrist 03/2018 Past Anesthesia History No Hx of Anesthesia Complications and No Family Hx of Anesthesia Complications History of PONV No Motion Sickness Screening History of Motion Sickness: Yes Social History Smoking Status: Former smoker tobacco type: cigarettes Do You Dip or Chew Tobacco: No Smoking End Date: QUIT 2003 Hx Alcohol Use: No Hx Substance Use: No Exercise / Class Metabolic Activity III < 4 Walking/Shop/Light housework (+SOB with activity, no CP.) Review of Systems Pt denies any recent chest pain, shortness of breath above baseline, palpitations, cough, fever or URI. Physical Exam Vital Signs BP: 117/77 P: 67bpm SPO2: 95% RA T: 98.4 F R: 18 ENMT Mouth: + dentures and + edentulous Thyromental Distance: > or= 3.5 Finger Breadths (3.5) Mallampati Class: III Neck + short neck and + thick neck; neck extension not limited Respiratory Auscultation: lungs clear to auscultation bilaterally, + diminished lung sounds and + bronchovesicular breath sounds Cardiovascular Rate/Rhythm: regular rate and regular rhythm Heart Sounds: no murmur Vessels: no carotid bruit Extremities: no edema Testing Electrocardiogram Date: 05/29/18 Findings: + SB @ (56) Chest X-Ray Date: 05/29/18 No change from the prior study. Stable elevation of the right hemidiaphragm. Stable left basilar atelectasis/scarring Echocardiogram Date: 06/01/18 EF: 68% Normal cardiac chamber sizes. Mild concentric LVH with preserved left ventricular systolic function. Calculated LV ejection fraction 68%. The right ventricular systolic function is normal. The aortic valve anatomy is normal. The aortic valve functions normally. The mitral valve anatomy is normal. Mitral valve functions normally. The tricuspid valve anatomy is normal. Trivial tricuspid regurgitation is present. The signal is inadequate to calculate pulmonary artery systolic pressure. The left ventricular endocardium is adequately assessed using ultrasound enhancing agent Definity. The examination is adequate to evaluate the referral indication. The primary indication after review was deemed appropriate and the examination was performed. Laboratory Results 05/29/18 11:50 05/29/18 11:50 PT 9.9 Seconds (9.0-12.0) 05/29/18 11:50 INR 1.0 (0.9-1.1) 05/29/18 11:50 APTT 24.3 Seconds (21.0-31.0) 05/29/18 11:50
[2018-05-29 12:27] LABS: Partial Thromboplastin Ratio 0.9; Partial Thromboplastin Time 24.3 Seconds (21.0-31.0); Prothrombin Time 9.9 Seconds (9.0-12.0)
[2018-05-29 12:29] LABS: Basophils # (auto) 0.06 K/uL (0-0.2); Basophils % (auto) 0.5 %; Eosinophils # (auto) 0.17 K/uL (0-0.5); Eosinophils % (auto) 1.4 %; Hematocrit (blood only) 33.5 % (37-47); Hemoglobin 9.3 g/dL (12.0-16.0); Immature Granulocytes # (auto) 0.05 K/uL (0.00-0.02); Immature Granulocytes % (auto) 0.4 %; Lymphocytes # (auto) 1.03 K/uL (1.2-3.4); Lymphocytes % (auto) 8.2 %; Mean Corpuscular Hgb Conc 27.8 g/dL (32-36); Mean Corpuscular Volume 76.8 fL (80-100); Mean Platelet Volume 11.2 fL (7.4-10.4); Monocytes # (auto) 0.47 K/uL (0.11-0.59); Monocytes % (auto) 3.7 %; Neutrophils % (auto) 85.8 %; Platelet Count 291 K/uL (130-400); RDW Standard Deviation 53.2 fL (36.4-46.3); Red Blood Count 4.36 M/uL (4.2-5.4); White Blood Count 12.58 K/uL (4.8-10.8)
[2018-05-29 14:09] LABS: BUN Creatinine Ratio 17.9 (10-20); Calcium 9.2 mg/dl (8.5-10.1); Creatinine Clr Calc Pharmacy 69.7 ml/min; Est GFR (African American) 71.9; Est GFR (Non-African American) 62.1; Potassium 4.5 mmol/L (3.5-5.1)
--- NOTE | 2018-06-07 19:21 | History and Physical Report ---
DATE OF ADMISSION: 06/08/2018 CHIEF COMPLAINT: She is being preop for a kyphoplasty at T7. HISTORY OF PRESENT ILLNESS: This patient is a pleasant lady. She has had a difficult problem with ongoing pain in thoracic area and compression fracture of the thoracic spine at T7. We tried multiple other conservative cares. I am actually making a last ditch effort to help her with a kyphoplasty as nothing else has helped her. PAST MEDICAL HISTORY: Positive for heart disease, chronic Coumadin usage, gastrointestinal distress and reflux, fluid retention and chronic obstructive pulmonary disease. ALLERGIES: AMBIEN, GABAPENTIN, CONTRAST DYE, LYRICA AND ASPIRIN. SOCIAL HISTORY: Nonsmoker. Non-ETOH user. REVIEW OF SYSTEMS: She denies any blurred vision, double vision, tinnitus or vertigo. She does have some shortness of breath that is somewhat chronic in nature. Denies any current chest pain or palpitations. No nausea, vomiting, urgency, frequency or dysuria. Her major complaint is orthopedic thoracic back pain. PHYSICAL EXAMINATION: VITAL SIGNS: Blood pressure 130/80, pulse 80 and respirations 16. GENERAL: She is 5 feet 3 inches. She is 200 pounds, in moderate distress. CARDIAC: Normal S1, S2. No S3. LUNGS: Clear. ABDOMEN: Obese, but nontender. Bowel sounds are present. EXTREMITIES: Intact neurosensory and vascular structures. X-rays include a complete chronic compression fracture at T7. PLAN: Includes a kyphoplasty at T7 vertebra as an outpatient.
[~2018-06-08 07:53] MED LIST changes: -ATRINS INH; -ATV1 PO; +CEFAZOLIN 2000MG 2,000 MG/15 ML SYR IV SCH; -CHOL100010 PO; -CITA40TA4 PO; -CYAN10005 PO; -DOCU-94 PO; -EPP3/2 IM; -FRRS300 PO; -HYDR-4313 PO; -LEVA1.258 NEB; -LEVE500T13 PO; -LORA1TAB13 PO; +LR 60ML/HR IV SCH; -LSX40 PO; -OMEP20CA9 PO; -OXCA150T2 PO; -OXGN; -POLY335025 PO; -POTA10CA28 PO; -PRED10TA PO; +SODIUM CHLORIDE 0.9% 1000ML 1,000 ML IV SCH; -VNTHFA/IN INH; -WARF-246 PO; -[UNRECOGNIZED DRUG - CODE] IV
[2018-06-08] MEDS ORDERED: fentaNYL citrate 100 MCG/2 ML VIAL ONE ×2 (09:36→11:49)
[2018-06-08] MEDS ORDERED: MIDAZOLAM HCL 1 MG/ML 2ML VIAL ONE (09:36)
[2018-06-08] MEDS ORDERED: BUPIVACAINE/EPINEPHRINE 0.5% MPF 1:200,000 30 ML VIAL ONE (10:59)
[2018-06-08] MEDS ORDERED: CONRAY 60% 50 ML VIAL ONE (11:00)
--- NOTE | 2018-06-08 11:06 | History & Physical Bridge Note ---
Date of Service June 08, 2018 History & Physical Bridge Note I have examined the patient, reviewed the History & Physical and in the interval since the performance of the History & Physical I have noted the following changes of clinical significance: no changes noted
[2018-06-08] MEDS ORDERED: GLYCOPYRROLATE 0.2 MG/ML VIAL ONE (12:01)
[2018-06-08] MEDS ORDERED: ONDANSETRON INJ 2 MG/ML 2 ML VIAL ONE (12:01)
[2018-06-08] MEDS ORDERED: LIDOCAINE HCL 2% 2 ML VIAL/AMP(20MG/ML) INFIL ONE (12:01)
[2018-06-08] MEDS ORDERED: CISATRACURIUM BESYLATE IV SOLN 2 MG/ML 10 ML VIAL IV ONE (12:01)
[2018-06-08] MEDS ORDERED: LARYING-O-JET KIT (LTA) ONE (12:01)
[2018-06-08] MEDS ORDERED: ePHEDrine sulfate 50 MG/ML SYR ONE (12:01)
[2018-06-08] MEDS ORDERED: PROPOFOL IV EMULSION 10 MG/ML 20 ML VIAL IV ONE (12:01)
[2018-06-08] MEDS ORDERED: NEOSTIGMINE METHYLSULFATE 5 MG/5 ML SYR ONE (12:01)
--- NOTE | 2018-06-08 12:28 | Post Operative Brief Note ---
Immediate Post Op Note v1 Date of Surgery June 08, 2018 Pre & Post Diagnosis Operation Date: 06/08/18 09:50 Pre-Op Diagnosis: Compression Fracture T7 Post-Op Diagnosis: Compression Fracture T7 Procedure Operation Date: 06/08/18 09:50 Actual Procedures p T7 Kyphoplasty(Not Applicable) - Benny Singh DO Surgeon Benny Singh DO Coal Weigher haylee Estimated Blood Loss 10 Findings Consistent with Post-Op Diagnosis
[2018-06-08] MEDS ORDERED: ONDANSETRON INJ 2 MG/ML 2 ML VIAL IV PRN ×3 (12:40→15:34)
[2018-06-08] MEDS ORDERED: OXYCODONE/ACETAMINOPHEN 5mg/325mg TAB PO PRN ×2 (12:40→15:34)
[2018-06-08] MEDS ORDERED: LABETALOL HCL IV 5 MG/ML 20ML IV PRN (12:55)
[2018-06-08] MEDS ORDERED: ATROPINE SULFATE 0.1 MG/ML 10ML SYR IV PRN (12:55)
[2018-06-08] MEDS ORDERED: PROMETHAZINE HCL 12.5 MG in SODIUM CHLORIDE 0.9% 50 ML IV PRN (12:55)
[2018-06-08] MEDS ORDERED: ALBUTEROL 0.083% NEBU SOLN 3 ML VIAL INH PRN (12:55)
[2018-06-08] MEDS ORDERED: NALOXONE HCL 0.4 MG/1 ML VIAL/CARP IV PRN (12:55)
[2018-06-08] MEDS ORDERED: ePHEDrine sulfate 50 MG/ML AMP IV PRN (12:55)
[2018-06-08] MEDS ORDERED: FLUMAZENIL 0.1 MG/1 ML 10 ML VIAL IV PRN (12:55)
--- NOTE | 2018-06-08 13:07 | Fluoroscopy Report ---
FL thoracic spine 2V HISTORY: 57 years-old Female T7 KYPHOPLASTY status post kyphoplasty of the T7 level COMPARISON: Thoracic spine radiographs 05/22/2018 TECHNIQUE: 2 spot fluoroscopic images of the thoracic spine were obtained utilizing 95.4 seconds fluo roscopy time FINDINGS: Images demonstrate kyphoplasty changes about a mid to lower thoracic segment, exact numbering not def initive based on the small field of view. Compression deformity at this interspace noted. Note that o n comparison radiographs from 05/22/2018 a compression deformity was seen within the T9 vertebral body . IMPRESSION: Fluoroscopic assistance as above. Please see procedural report for further details. The above report was generated using voice recognition software. It may contain grammatical, syntax o r spelling errors. Electronically signed by: Raudel Javed M.D. 06/08/2018 1:06 PM
[2018-06-08] MEDS: fentaNYL citrate 100 MCG/2 ML VIAL IV PRN ×6 (13:12→15:03)
--- NOTE | 2018-06-08 14:59 | Operative Report ---
DATE OF OPERATION: 06/08/2018 PREOPERATIVE DIAGNOSIS: Compression fracture, T7. POSTOPERATIVE DIAGNOSIS: Compression fracture, T7. PROCEDURE: Included a kyphoplasty, T7 vertebra. SURGEON: Benny Singh DO. COMMUNITY ENGAGEMENT SPECIALIST: Thang Wallace PA-C. COMPLICATIONS: Zero. ESTIMATED BLOOD LOSS: 10 mL. IMPLANTS: No implants used. DESCRIPTION OF PROCEDURE: Patient was taken to the operating room. A general intubated anesthetic provided to the patient. Placed prone, prepped and draped sterile. We engaged the T7 vertebra by biplanar x-ray, getting the trocar into vertebra perfectly on the left hand side and the right hand side. We inflated the balloons to approximately 400 pounds per square inch. We backfilled each cavity with about 2 mL, the fill was excellent. We irrigated and closed with nylon suture. Sterile dressings applied. The patient returned to PACU stable. No complications. I attest to the content of the Intraoperative Record and any orders documented therein. Any exception s are noted below.
--- NOTE | 2018-06-08 15:24 | Anesthesiology Progress Note ---
Date of Service June 08, 2018 Anesthesia Post Procedure Vital Signs Vital Signs: Temp Pulse Pulse Resp BP BP Pulse Ox 06/08/18 15:05 72 18 139/75 96 06/08/18 14:50 61 15 143/76 H 95 06/08/18 14:35 62 12 144/75 H 94 06/08/18 14:20 68 17 153/66 H 96 06/08/18 14:10 36.2 C L 78 16 124/78 95 06/08/18 14:00 79 16 154/83 H 95 06/08/18 13:50 72 16 143/67 H 94 06/08/18 13:40 77 12 114/84 93 06/08/18 13:30 76 12 156/73 H 93 06/08/18 13:20 72 19 141/86 H 95 06/08/18 13:10 77 21 108/80 96 06/08/18 13:07 71 16 100 06/08/18 13:00 68 13 156/71 H 96 06/08/18 12:50 85 12 135/69 97 06/08/18 12:40 36.3 C L 84 12 142/80 H 96 06/08/18 08:26 37.0 C 70 20 143/91 H 97 Pain Intensity Medial Back: Pain Intensity: 6 Notes Mental Status: alert / awake / arousable Patient Amnestic to Procedure: Yes Nausea / Vomiting: adequately controlled Pain: adequately controlled Airway Patency, RR, SpO2: stable & adequate BP & HR: stable & adequate Hydration State: stable & adequate Anesthetic Complications: no major complications apparent
[2018-06-08] MEDS ORDERED: NITROGLYCERIN SL 0.4 MG/TAB TAB SL PRN (15:34)
[2018-06-08] MEDS ORDERED: IMMUNE GLOBULIN SCH (15:34)
[2018-06-08] MEDS ORDERED: ALBUTEROL HFA 8 GM INHALER INH PRN (15:34)
[2018-06-08] MEDS ORDERED: POLYETHYLENE (MIRALAX) 17 GM PACK PO PRN (15:34)
[2018-06-08] MEDS ORDERED: EPINEPHRINE ADULT AUTO-INJECT 0.3 MG SYR IM PRN (15:34)
[2018-06-08] MEDS: SODIUM CHLORIDE 0.9% 1000ML 1,000 ML IV SCH (16:04)
[2018-06-08] MEDS: HYDROCODONE/ACETAMOPHEN 5/325MG TAB PO PRN (16:09)
[2018-06-08] MEDS ORDERED: WARFARIN SOD 10 MG TAB PO STA (17:24)
[2018-06-08] MEDS ORDERED: WARFARIN SOD 2.5 MG TAB PO STA (17:25)
[2018-06-08] MEDS: OXYCODONE HCL IR 5 MG TAB (IMMEDIATE RELEASE) PO PRN (17:42)
[2018-06-08] MEDS: PANTOprazole 40 MG TAB PO SCH (21:01)
[2018-06-08] MEDS: DOCUSATE SODIUM 100 MG CAP PO SCH (21:02)
[2018-06-08] MEDS: ACETAMINOPHEN 1,000 MG/100 ML VIAL IV SCH (21:03)
[2018-06-09] MEDS: OXYCODONE HCL IR 5 MG TAB (IMMEDIATE RELEASE) PO PRN ×4 (00:48→15:32)
[2018-06-09] MEDS: HYDROCODONE/ACETAMOPHEN 5/325MG TAB PO PRN ×2 (03:27→11:24)
[2018-06-09] MEDS: SODIUM CHLORIDE 0.9% 1000ML 1,000 ML IV SCH (03:27)
[2018-06-09] MEDS: ACETAMINOPHEN 1,000 MG/100 ML VIAL IV SCH ×3 (05:04→21:18)
--- NOTE | 2018-06-09 07:58 | Anesthesiology Progress Note ---
Date of Service June 09, 2018 Anesthesia Post Procedure Vital Signs Vital Signs: Temp Pulse Pulse Resp BP BP Pulse Ox 06/09/18 07:17 36.5 C 62 18 113/74 96 06/09/18 03:12 36.7 C 61 17 114/72 98 06/08/18 22:57 36.8 C 62 16 106/68 99 06/08/18 22:03 94 06/08/18 18:33 36.6 C 80 18 136/81 92 06/08/18 17:32 36.6 C 67 18 141/74 H 93 06/08/18 16:29 36.4 C L 59 L 18 137/85 98 06/08/18 16:05 36.5 C 62 18 128/84 98 06/08/18 15:30 36.8 C 62 18 139/76 93 06/08/18 15:05 72 18 139/75 96 06/08/18 14:50 61 15 143/76 H 95 06/08/18 14:35 62 12 144/75 H 94 06/08/18 14:20 68 17 153/66 H 96 06/08/18 14:10 36.2 C L 78 16 124/78 95 06/08/18 14:00 79 16 154/83 H 95 06/08/18 13:50 72 16 143/67 H 94 06/08/18 13:40 77 12 114/84 93 06/08/18 13:30 76 12 156/73 H 93 06/08/18 13:20 72 19 141/86 H 95 06/08/18 13:10 77 21 108/80 96 06/08/18 13:07 71 16 100 06/08/18 13:00 68 13 156/71 H 96 06/08/18 12:50 85 12 135/69 97 06/08/18 12:40 36.3 C L 84 12 142/80 H 96 06/08/18 08:26 37.0 C 70 20 143/91 H 97 Pain Intensity Medial Back: Pain Intensity: 5 Notes Mental Status: alert / awake / arousable and participated in evaluation Nausea / Vomiting: adequately controlled Pain: adequately controlled Airway Patency, RR, SpO2: stable & adequate BP & HR: stable & adequate Hydration State: stable & adequate Anesthetic Complications: Pt Satisfied with anesthetic care
[2018-06-09] MEDS ORDERED: POTASSIUM CHLORIDE 10 MEQ TABCR PO SCH (09:00)
[2018-06-09] MEDS ORDERED: FUROSEMIDE 40 MG TAB PO SCH (09:00)
[2018-06-09] MEDS: CHOLECALCIFEROL 1,000 UNITS TAB PO SCH (09:06)
[2018-06-09] MEDS: predniSONE 20 MG TAB PO SCH (09:06)
[2018-06-09] MEDS: PANTOprazole 40 MG TAB PO SCH ×2 (09:06→20:23)
[2018-06-09] MEDS: CITALOPRAM 40 MG TAB PO SCH (09:07)
[2018-06-09] MEDS: CYANOCOBALAMIN 500 MCG TABLET (VITAMIN B-12) PO SCH (09:07)
[2018-06-09] MEDS ORDERED: ALBUT/IPRATROP 3MG/0.5MG NEB 3 ML VIAL NEB STA (10:48)
--- NOTE | 2018-06-09 11:11 | Discharge Summary ---
DATE OF DISCHARGE: 06/09/18 She is alert, oriented, some shortness of breath on CPAP machine. No chest pain, no calf tenderness, no confusion. OBJECTIVE: Vital signs stable, alert, oriented. ASSESSMENT: Status post kyphoplasty of T7 vertebrae, doing well. PLAN: We will have her up and ambulatory today and discharge home later today. She has prescription on her chart and a followup appointment with us in approximately 10 days.
[2018-06-09] MEDS: HEPARIN 100 UNIT/ML 5ML FLUSH FLUSH PRN (11:16)
[2018-06-09] MEDS ORDERED: XOPENEX/ATROVENT 0.63mg/0.5MG NEB COMBO NEB SCH (14:00)
[2018-06-09] MEDS ORDERED: IPRATROPIUM BROMIDE NEB SOLN 0.02% 2.5 ML VIAL INH SCH (14:00)
[2018-06-09] MEDS ORDERED: LEVALBUTEROL HCL 0.63 MG/3 ML NEB NEB SCH (14:00)
[2018-06-09] MEDS ORDERED: WARFARIN SOD 10 MG TAB PO SCH (16:00)
[2018-06-09] MEDS ORDERED: WARFARIN SOD 2.5 MG TAB PO SCH (16:00)
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
--- NOTE | 2018-06-09 17:32 | XRay Report ---
XR chest 1V portable HISTORY: 57 years-old Female shortness of breath acute shortness of breath COMPARISON: Chest radiograph 03/03/2018, chest CT 03/09/2018 TECHNIQUE: Portable AP view of the chest FINDINGS: Cardiomediastinal and hilar silhouettes are within normal limits. Left subclavian Rkwxyj-a-Dbnv analilia ter appears stable. Mild right hemidiaphragmatic elevation. Subsegmental left basilar opacities sugge st atelectasis/scarring are also unchanged. There is no pneumothorax, pleural effusion or overt pulmo nary edema. Linear subsegmental left upper lobe opacity suggests atelectasis/scarring. Densities are noted about the distribution of the posterior lateral left seventh rib and posterior lateral right ei ghth rib which are suggestive of subacute or chronic rib fractures. IMPRESSION: 1. No acute process of the chest. 2. Chronic right hemidiaphragmatic elevation with left basilar atelectasis/scarring. The above report was generated using voice recognition software. It may contain grammatical, syntax o r spelling errors. Electronically signed by: Raudel Javed M.D. 06/09/2018 5:31 PM
[2018-06-09] MEDS: LEVALBUTEROL HCL 0.63 MG/3 ML NEB NEB SCH (19:45)
[2018-06-09] MEDS: IPRATROPIUM BROMIDE NEB SOLN 0.02% 2.5 ML VIAL INH SCH (19:45)
[2018-06-09] MEDS: ENOXAPARIN 100 MG/1ML SYR SQ SCH (20:21)
[2018-06-09] MEDS: DOCUSATE SODIUM 100 MG CAP PO SCH (20:23)
[2018-06-10] MEDS: LEVALBUTEROL HCL 0.63 MG/3 ML NEB NEB SCH ×2 (01:57→07:14)
[2018-06-10] MEDS: IPRATROPIUM BROMIDE NEB SOLN 0.02% 2.5 ML VIAL INH SCH ×2 (01:57→07:13)
[2018-06-10] MEDS: ACETAMINOPHEN 1,000 MG/100 ML VIAL IV SCH (06:00)
[2018-06-10 06:01] LABS: INR 1.3 (0.9-1.1); Prothrombin Time 13.4 Seconds (9.0-12.0)
[2018-06-10 06:07] LABS: Hemoglobin 7.7 g/dL (12.0-16.0); Mean Corpuscular Hgb Conc 26.6 g/dL (32-36); Mean Platelet Volume 10.9 fL (7.4-10.4); Platelet Count 244 K/uL (130-400); RDW Standard Deviation 54.9 fL (36.4-46.3); Red Blood Count 3.67 M/uL (4.2-5.4); White Blood Count 9.39 K/uL (4.8-10.8)
[2018-06-10 06:17] LABS: BUN Creatinine Ratio 17.9 (10-20); Creatinine Clr Calc Pharmacy 82.2 ml/min; Est GFR (African American) 87.5; Est GFR (Non-African American) 75.5; Potassium 3.8 mmol/L (3.5-5.1)
[2018-06-10] MEDS: HEPARIN 100 UNIT/ML 5ML FLUSH FLUSH PRN (06:19)
[2018-06-10] MEDS: ENOXAPARIN 100 MG/1ML SYR SQ SCH (09:02)
[2018-06-10] MEDS: PANTOprazole 40 MG TAB PO SCH (09:02)
[2018-06-10] MEDS: CHOLECALCIFEROL 1,000 UNITS TAB PO SCH (09:02)
[2018-06-10] MEDS: CYANOCOBALAMIN 500 MCG TABLET (VITAMIN B-12) PO SCH (09:03)
[2018-06-10] MEDS: predniSONE 20 MG TAB PO SCH (09:03)
[2018-06-10] MEDS: CITALOPRAM 40 MG TAB PO SCH (09:03)
[2018-06-10 10:14] LABS: Hematocrit (blood only) 29.1 % (37-47)
[2018-06-10] MEDS: HYDROCODONE/ACETAMOPHEN 5/325MG TAB PO PRN (10:43)
[2018-06-10] MEDS: OXYCODONE HCL IR 5 MG TAB (IMMEDIATE RELEASE) PO PRN (12:45)
--- NOTE | 2018-06-10 13:55 | Hospitalist Progress Note ---
Date of Service June 10, 2018 Assessment & Plan (1) Discharge planning issues: Chart reviewed. Discharge order placed by Dr. Singh. Labs this a.m. show hemoglobin 7.7 with recheck 8.0. INR 1.3. Discussed with patient at bedside. She reports she is feeling well today and is eager to go home. She denies lightheadedness and dizziness. No chest pain or shortness of breath. She denies bright red bleeding per rectum or dark tarry stools. Incision site from kyphoplasty appears to be healing well without significant ecchymosis or edema. She reports a history of anemia in the past requiring blood transfusion with an unknown cause. Prescription given to patient to have CBC and INR checked on 06/12. Lovenox and Coumadin bridging dosing explained to patient. She has done SQ Lovenox injections in the past at home. Patient voices understanding and is in agreement with above plan. [facility] anticoagulation clinic updated. Supervising Physician Co-Signing Physician Notes delayed entry date of service as noted above plan of care coordinated and discussed with CRISTOPHER Garcia i was not able to see and examine patient as she has already been discharged Deepa Mar MD Physical Exam 2 Vital Signs (Past 24 Hours): Last Vital Signs Temp 36.7 C 06/10/18 09:24 Pulse 69 06/10/18 09:24 Resp 16 06/10/18 09:24 BP 104/67 06/10/18 09:24 Pulse Ox 100 06/10/18 09:24
[2018-06-10] MEDS ORDERED: WARFARIN SOD 10 MG TAB PO SCH (16:00)
[2018-06-11] MEDS ORDERED: WARFARIN SOD 5 MG TAB PO SCH (16:00)
[2018-06-12] MEDS ORDERED: WARFARIN SOD 7.5 MG TAB PO SCH (16:00)
== END 2018-06-10 13:47 | disposition home health service (06) ==
LOC: ASU 07:53 → 3E 07:53

== ENCOUNTER 2018-08-10 16:40 | Inpatient (IN) ==
[2018-08-10] MEDS ORDERED: ONDANSETRON INJ 2 MG/ML 2 ML VIAL IV PRN (18:00)
[2018-08-10] MEDS ORDERED: NITROGLYCERIN SL 0.4 MG/TAB TAB SL PRN (18:00)
[2018-08-10 19:12] LABS: Basophils # (auto) 0.05 K/uL (0-0.2); Basophils % (auto) 0.4 %; Eosinophils # (auto) 0.01 K/uL (0-0.5); Eosinophils % (auto) 0.1 %; Hematocrit (blood only) 33.6 % (37-47); Hemoglobin 9.9 g/dL (12.0-16.0); Immature Granulocytes # (auto) 0.05 K/uL (0.00-0.02); Immature Granulocytes % (auto) 0.4 %; Lymphocytes # (auto) 1.04 K/uL (1.2-3.4); Lymphocytes % (auto) 7.5 %; Mean Corpuscular Hgb Conc 29.5 g/dL (32-36); Mean Corpuscular Volume 73.5 fL (80-100); Mean Platelet Volume 10.6 fL (7.4-10.4); Monocytes # (auto) 0.74 K/uL (0.11-0.59); Monocytes % (auto) 5.3 %; Neutrophils # (auto) 12.04 K/uL (1.4-6.5); Neutrophils % (auto) 86.3 %; Platelet Count 365 K/uL (130-400); RDW Coefficient of Variation 19.4 % (11.5-14.5); Red Blood Count 4.57 M/uL (4.2-5.4); White Blood Count 13.93 K/uL (4.8-10.8)
[2018-08-10 19:36] LABS: Albumin Level 3.5 gm/dl (3.4-5.0); BUN Creatinine Ratio 11.6 (10-20); Blood Urea Nitrogen 15 mg/dl (7-18); Calcium 9.2 mg/dl (8.5-10.1); Carbon Dioxide 32 mmol/L (21-32); Chloride 99 mmol/L (98-107); Est GFR (African American) 53.9; Est GFR (Non-African American) 46.5; Glucose 145 mg/dl (70-99); INR 1.4 (0.9-1.1); Partial Thromboplastin Ratio 2.1; Prothrombin Time 13.7 Seconds (9.0-12.0); Sodium 139 mmol/L (136-145)
[2018-08-10 19:37] LABS: Hypochromasia Present; Ovalocytes 1+; Tear Drop Cells 1+
[2018-08-10 19:40] LABS: Partial Thromboplastin Time 56.9 Seconds (21.0-31.0)
--- NOTE | 2018-08-10 19:46 | History & Physical Report ---
Date of Service August 10, 2018 Assessment & Plan (1) Non-ST elevation (NSTEMI) myocardial infarction: History of nonobstructive coronary artery disease per cardiac cath at [facility] in November 2017. Worsening exertional chest pain, relieved by nitroglycerin. Evaluated at [facility]. Troponins were elevated. [place] to have non- STEMI. Transferred to [facility] for further evaluation. Allergic to aspirin (urticaria). Clopidogrel was initiated at [facility] and will be continued. INR subtherapeutic on warfarin. Started on IV heparin. Started on isosorbide mononitrate; will use NTP while NPO. Started on statin therapy with atorvastatin which will be continued. Check lipid profile. Not receiving beta-gwen (contraindicated in light of severe asthma). Further management per Cardiology. (2) CHF (congestive heart failure): Found to be in congestive heart failure yesterday at [facility]. Received IV furosemide with improvement. Echo was ordered, but report not available at this time (LVEF was normal in November 2017). Check follow-up chest x-ray in the morning. Verify that echo was done at [place]; if not, should be performed during this hospital stay. Titrate diuretics. Further treatment will depend on LV function. (3) Asthma, severe persistent: History of severe asthma, followed by Dr. Kim. 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 Recently quiescent. Continue prednisone and bronchodilators. (4) Chronic steroid use: Chronic prednisone therapy for severe asthma; current dose is 20 mg daily. Attempts at weaning to a lower dose have been unsuccessful. Stress dose steroids as needed for physiologic stress. (5) Chronic respiratory failure with hypoxia, on home O2 therapy: Continue supplemental oxygen. (6) History of pulmonary embolism: History of pulmonary embolism on chronic warfarin therapy. INR subtherapeutic. Receiving IV heparin for non-STEMI. Titrate warfarin. (7) GERD (gastroesophageal reflux disease): Continue PPI. (8) Anemia: Chronic anemia requiring intermittent transfusions. No gross GI bleeding. Last colonoscopy on 06/05/17 showed diverticulosis. Last EGD on 04/10/17 showed reflux esophagitis. Has chronic microscopic hematuria and has undergone urologic evaluation in the past. Hemoglobin at [facility] was 7.8 and patient was transfused with 1 unit of packed RBCs. Hemoglobin this evening 9.9. Follow. (9) Dyslipidemia: Check lipid profile. Started on atorvastatin at [facility] which will be continued. (10) DVT prophylaxis: Receiving IV heparin. Titrate warfarin. (11) Discharge planning issues: Anticipated discharge to home. Medical follow-up with CRISTOPHER Noguera. History of Present Illness Chief Complaint: chest pain Primary Care Provider: CRISTOPHER Mckeon 57-year-old female followed by CRISTOPHER Noguera. History of coronary artery disease, pulmonary embolism, severe asthma, and other problems as noted below. Admitted to [facility] on 12/04/[address] Garcia was consulted. Serial troponins were negative. Echocardiogram showed normal left ventricular wall motion and systolic function. Cardiac catheterization was performed by Dr. Arroyo on 12/05/17 and demonstrated moderate nonobstructive coronary artery disease with 40-50% lesion mid RCA and 50-60% lesion mid to distal circumflex. Risk factor modification recommended. Patient experiencing recurrent chest pain for the past few days. She noted midsternal chest burning / heaviness with exertion, such as shopping. Chest pain radiated across her chest, to her neck, and left arm. No SOB, diaphoresis, nausea, vomiting. Symptoms were relieved by one sublingual nitroglycerin 2 days prior to this admission. Yesterday she had more severe symptoms, not relieved by 2 sublingual nitroglycerin tablets. She was evaluated in the ED at [facility] and admitted for further evaluation. Dr. Wray was consulted for cardiac evaluation. EKG demonstrated NSR with slight ST depression inferiorly and laterally. Serial troponin T's: [phone] (normal range 0-14 ng/L). [place] to have non-STEMI. Allergic to aspirin. Treated with clopidogrel, IV heparin, nitrates, statin. She did not receive a beta gwen (probably because of history of severe asthma). Found to be in congestive heart failure. Received IV furosemide with improvement. Echo was ordered, but results not available at the time of this admission. Has history of chronic anemia, requiring occasional transfusion of packed RBCs. Hemoglobin was 7.8. Patient received 1 unit of packed RBCs. Dr. Wray discussed the patient's case with Dr. Arroyo and arrangements were made for transfer to [facility] for further evaluation. Patient was seen in her room around 1920. She felt well. No further chest pain or other cardiac symptoms. Allergies Allergy/AdvReac Type Severity Reaction Status Date / Time aspirin Allergy Intermediate HIVES Verified 06/08/18 08:19 ibuprofen Allergy Intermediate HIVES Verified 06/08/18 08:19 levofloxacin Allergy Intermediate HIVES Verified 06/08/18 08:19 Iodinated Contrast- Oral and Allergy Unknown IV ONLY - Verified 06/08/18 08:19 IV Dye HIVES pregabalin AdvReac Intermediate SEVERE Verified 06/08/18 08:19 DEPRESSION zolpidem AdvReac Intermediate HALLUCINATI Verified 06/08/18 08:19 ONS gabapentin AdvReac Mild GOOFY Verified 06/08/18 08:19 THOUGHTS Home Medications Home Medications Medication Instructions Recorded Confirmed Type Prilosec OTC 20 mg PO BID 03/03/18 08/10/18 History albuterol sulfate [Ventolin HFA] 2 puff INHALATION Q4H PRN 03/03/18 08/10/18 History cholecalciferol (vitamin D3) 2,000 unit PO DAILY 03/03/18 08/10/18 History citalopram [Celexa] 40 mg PO QAM 03/03/18 08/10/18 History cyanocobalamin (vitamin B-12) 1,000 mcg PO QAM 03/03/18 08/10/18 History docusate sodium [Colace] 200 mg PO HS 03/03/18 08/10/18 History epinephrine [EpiPen] 0.3 mg IM UD PRN 03/03/18 08/10/18 History furosemide [Lasix] 40 mg PO DAILY 03/03/18 08/10/18 History nitroglycerin [Nitrostat] 1 tab SUBLINGUAL UD PRN 03/03/18 08/10/18 History polyethylene glycol 3350 [Miralax] 17 g PO UD PRN 03/03/18 08/10/18 History potassium chloride 10 meq PO BID 03/03/18 08/10/18 History prednisone 20 mg PO QAM #0 tab 03/15/18 08/10/18 Rx ipratropium-albuterol 3 ml INHALATION QID PRN 08/10/18 08/10/18 History warfarin 5 mg PO UD 08/10/18 08/10/18 History Past Med/Surg History Medical History Adrenal insufficiency (Chronic) Hypogammaglobulinemia (Chronic) Chronic respiratory failure with hypoxia, on home O2 therapy (Chronic) Anemia (Chronic) GERD (gastroesophageal reflux disease) (Chronic) Chronic steroid use (Chronic) for severe asthma Heterozygous alpha 1-antitrypsin deficiency (Chronic) Dyslipidemia (Chronic) History of pulmonary embolism (Chronic) CAD (coronary artery disease) (Chronic) Nonobstructive by cardiac cath 11/2017 Asthma, severe persistent (Chronic) Disp fx of distal pole of navicular bone of left wrist w/routine heal 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 Follows with pulm. On chronic steroids Prednisone 20mg and albuterol prn. Has not used albuterol since last hospital admission 03/2018. Chronic back pain Chronic respiratory failure with hypoxia RESPIRATORY ISSUES FROM ASTHMA ATTACK 5 YRS AGO/[place]. WAS ADMITTED FOR BOWEL PERF 2/2 DIVERTICULITIS AND ACUTE ASTHMA EXAC...POST OP ICU ON VENT X 24HRS. Depression Dyslipidemia GERD (gastroesophageal reflux disease) H/O adrenal insufficiency History of colonic diverticulitis History of pulmonary embolism 03/2015 post-op, then again spontaneously 02/2018. On Coumadin. Hypogammaglobulinemia Immunoglobulin deficiency Microscopic hematuria chronic problem Osteoporosis Seizure WORK UPS DONE FOR DX OF SEIZURES..PT REPORTS DR CASAS REPORTED THAT SEIZURES SHOULD NOT BE IN PT HX/SYMPTOMS PRIOR TO WORK UP STUDIES: STANDING UP TO QUICK AFTER SITTING FOR AN HOUR WILL GET WHOOZY FEELING, DOES NOT PASS OUT ...IF SITS BACK DOWN IS FINE Sleep apnea With hypoxemia. Using CPAP with O2 HS Steroid-induced osteoporosis Surgical History Status post hernia repair (Chronic) Status post appendectomy (Chronic) Status post cholecystectomy (Chronic) Status post partial colectomy (Chronic) Status post kyphoplasty (Chronic) History of colectomy (Chronic) COLOSTOMY AND REVERSAL History of colonoscopy (Chronic) History of cardiac catheterization (Chronic) 2017...CHEST TIGHTNESS.ABNORMAL STRESS...[facility]..BLOCKAGES 50 % 60% - NO STENT(S) FEW YEARS AGO...CHEST DISCOMFORT...[place]...NO FINDINGS Status post wrist surgery (Chronic) For fracture repair L wrist 03/2018 H/O dilation and curettage H/O exploratory laparotomy Organ biopsies for suspected Hodgkins lymphoma, long time ago H/O right knee surgery H/O sinus surgery H/O: hysterectomy History of appendectomy History of bronchoscopy "for mucous plugs" History of carpal tunnel surgery S/P herniorrhaphy Status post hernia repair Status post partial colectomy Family History Mother Hypertension Father Coronary heart disease Social History Preferred Language: Kazakh Communication Ability: Effective Medication Manager Required: No Beliefs That Will Affect Care: None marital status: Current Living Situation: Spouse current occupational status: disabled Other Information That Helps Us Care for You: No Feels Safe at Home: Yes Safety Concerns: Feels Safe At This Time Smoking Status: Former smoker Hx Alcohol Use: No Hx Substance Use: No Review of Systems Constitutional: + weight gain (wt fluctuates); no fever Eyes: no diplopia and no worsening vision Ear, Nose, Mouth, Throat: no nasal congestion, no sinus pain/pressure and no sore throat Respiratory: no cough and no dyspnea Cardiovascular: as per Subjective / HPI Gastrointestinal: + nausea; no vomiting, no constipation, no diarrhea/loose stools, no blood in stools and no melena Genitourinary (Female): + hematuria (chronic microscopic hematuria, but no gross hematuria); no dysuria Musculoskeletal: + joint pain (chronic back pain); no myalgia Integumentary: + new lesions (dry spots on skin); no rash Neurologic: + headache(s) (after NTG) Endocrine: no polydipsia and no polyuria Hematologic / Lymphatic: + easy bleeding and + easy bruising; no lymphadenopathy Physical Exam Vital Signs (Past 24 Hours): Last Vital Signs Temp 36.8 C 08/10/18 18:00 Pulse 96 H 08/10/18 18:00 Resp 17 08/10/18 18:00 BP 138/85 08/10/18 18:00 Pulse Ox 94 08/10/18 18:00 Constitutional: WD/WN, vitals as above no acute distress Eyes: PERRL, conjunctivae normal, anicteric sclerae ENMT: external ear and nose normal, oropharynx normal Mouth: + dentures Neck: trachea midline, no thyromegaly Respiratory: normal respiratory effort, lungs clear to auscultation Cardiovascular: Rate/Rhythm: regular rate and regular rhythm Heart Sounds: + murmur (II/ sys murmur at base); no gallop and no cardiac rub Vessels: normal peripheral pulses; no JVD Extremities: normal capillary refill; no calf tenderness and no edema Gastrointestinal (Abdomen): normal bowel sounds, soft, nontender, no hepatosplenomegaly Musculoskeletal: Head/Neck/Chest: neck supple Extremities: strength 5/5 throughout; no cyanosis and no clubbing Skin: no rashes, warm and dry Neurologic: PERRL, EOMI no facial palsy no dysarthria or aphasia patellar DTR's 3/2 bilat Psychiatric: Orientation: alert and oriented x 3 Affect: euthymic affect Lymphatic: no cervical lymphadenopathy Results & Data Laboratory Results Laboratory Results - last 24 hr 08/10/18 08/10/18 08/10/18 19:01 19:01 19:01 WBC 13.93 H RBC 4.57 Hgb 9.9 L Hct 33.6 L MCV 73.5 L MCH 21.7 L MCHC 29.5 L RDW Std Deviation 52.0 H RDW Coeff of Aman 19.4 H Plt Count 365 MPV 10.6 H Immature Gran % (Auto) 0.4 Neut % (Auto) 86.3 Lymph % (Auto) 7.5 [place] % (Auto) 5.3 Eos % (Auto) 0.1 Baso % (Auto) 0.4 Immature Gran # (Auto) 0.05 H Neut # (Auto) 12.04 H Lymph # (Auto) 1.04 L [place] # (Auto) 0.74 H Eos # (Auto) 0.01 Baso # (Auto) 0.05 Hypochromasia Present Tear Drop Cells 1+ Ovalocytes 1+ PT 13.7 H INR 1.4 H APTT 56.9 H* PTT Ratio 2.1 Sodium 139 Potassium 4.0 Chloride 99 Carbon Dioxide 32 Anion Gap 8.0 BUN 15 Creatinine 1.27 H Est Cr Clr Drug Dosing Not Reportable Est GFR ( Amer) 53.9 Est GFR (Non-Af Amer) 46.5 BUN/Creatinine Ratio 11.6 Glucose 145 H Calcium 9.2 Total Bilirubin 0.4 AST 17 ALT 20 Alkaline Phosphatase 65 Troponin I 1.800 H* Total Protein 7.6 Albumin 3.5 Globulin 4.1 H Albumin/Globulin Ratio 0.9 ECG Additional Comments: EKG performed at 1908 reviewed and demonstrated NSR at 86 / min, [address] depression II, III, aVF, V4-6, T-wave flattening inferiorly. Code Status & VTE Plan Code Status full code VTE Prophylaxis Plan VTE Prophylaxis will be ordered: Yes
[2018-08-10 19:50] LABS: Alanine Aminotransferase 20 U/L (12-78); Albumin Globulin Ratio 0.9 (0.9-2); Alkaline Phosphatase 65 U/L (45-117); Aspartate Aminotransferase 17 U/L (15-37); Bilirubin,Total 0.4 mg/dl (0.2-1); Globulin 4.1 gm/dl (2.5-4.0); Total Protein 7.6 gm/dl (6.4-8.2)
[2018-08-10] MEDS ORDERED: POLYETHYLENE (MIRALAX) 17 GM PACK PO PRN (20:10)
[2018-08-10] MEDS ORDERED: ALBUTEROL HFA 8 GM INHALER INH PRN (20:10)
[2018-08-10] MEDS: DOCUSATE SODIUM 100 MG CAP PO SCH (21:41)
[2018-08-10] MEDS: PANTOprazole 40 MG TAB PO SCH (21:41)
[2018-08-10] MEDS: Heparin IV Standard *NO* Bolus IV SCH ×2 (21:42→22:51)
[2018-08-10] MEDS: Heparin Adult STANDARD Wt-Based Dextrose 5% 25,000 units/500 mL IV SCH (21:55)
[2018-08-10] MEDS: NITROGLYCERIN 2% OINTMENT 30GM TUBE EXT SCH (23:10)
[2018-08-11] MEDS ORDERED: HEPARIN 100 UNIT/ML 5ML FLUSH FLUSH PRN (01:18)
[2018-08-11] MEDS: NITROGLYCERIN 2% OINTMENT 30GM TUBE EXT SCH (05:35)
[2018-08-11 06:07] LABS: Hematocrit (blood only) 31.6 % (37-47); Hemoglobin 9.1 g/dL (12.0-16.0); Mean Corpuscular Hgb Conc 28.8 g/dL (32-36); Mean Corpuscular Volume 74.4 fL (80-100); Mean Platelet Volume 10.5 fL (7.4-10.4); Platelet Count 312 K/uL (130-400); RDW Coefficient of Variation 19.4 % (11.5-14.5); RDW Standard Deviation 52.8 fL (36.4-46.3); Red Blood Count 4.25 M/uL (4.2-5.4); White Blood Count 12.92 K/uL (4.8-10.8)
[2018-08-11 06:42] LABS: BUN Creatinine Ratio 18.1 (10-20); Calcium 9.5 mg/dl (8.5-10.1); Creatinine Clr Calc Pharmacy 73.7 ml/min; Est GFR (African American) 77.5; Est GFR (Non-African American) 66.9; Magnesium 2.1 mg/dl (1.8-2.4); Potassium 3.5 mmol/L (3.5-5.1)
[2018-08-11 06:46] LABS: INR 1.3 (0.9-1.1); Prothrombin Time 12.8 Seconds (9.0-12.0)
--- NOTE | 2018-08-11 07:06 | XRay Report ---
XR chest 1V portable HISTORY: 57 years-old Female CHF acute short of breath with congestive heart failure COMPARISON: Chest radiograph 06/09/2018 TECHNIQUE: Portable AP view of the chest FINDINGS: Cardiomediastinal and hilar silhouettes are unchanged. Stable positioning of left subclavian Infuse-a -Port catheter. Chronic right hemidiaphragmatic elevation. Left basilar opacities redemonstrated. The re is no pneumothorax, pleural effusion or overt pulmonary edema. Degenerative changes of the shoulde rs and spine. Healed remote bilateral rib fractures. IMPRESSION: 1. No acute process. 2. Chronic right hemidiaphragmatic elevation. 3. Unchanged left basilar opacities suggestive of atelectasis/scarring. The above report was generated using voice recognition software. It may contain grammatical, syntax o r spelling errors. Electronically signed by: Raudel Javed M.D. 08/11/2018 7:04 AM
[2018-08-11] MEDS ORDERED: fentaNYL citrate 100 MCG/2 ML VIAL ONE (07:14)
[2018-08-11] MEDS ORDERED: MIDAZOLAM HCL 1 MG/ML 2ML VIAL ONE (07:14)
[2018-08-11] MEDS ORDERED: HEPARIN (PORCINE) 1000 UNIT/ML 10 ML (CATH LAB USE ONLY) ONE (07:15)
[2018-08-11] MEDS ORDERED: NiCARDipine HCL INJ 2.5 MG/ML 10 ML AMP ONE (07:15)
[2018-08-11] MEDS ORDERED: NITROGLYCERIN/D5W 100MCG/ML 20ML SYR ONE (07:15)
[2018-08-11] MEDS ORDERED: ASPIRIN 81 MG CHEW ONE (07:26)
[2018-08-11] MEDS ORDERED: methylPREDNISolone 125 MG/2 ML VIAL ONE (07:40)
[2018-08-11] MEDS ORDERED: DiphenhydrAMINE HCL 50 MG/ML VIAL ONE (07:41)
[2018-08-11] MEDS ORDERED: raNITIdine HCl 25 MG/ML VIAL ONE (07:41)
--- NOTE | 2018-08-11 07:43 | Cardiology Consultation ---
Date of Consultation August 11, 2018 Assessment & Plan (1) Non-ST elevation (NSTEMI) myocardial infarction: 2. Acute diastolic heart failure 3. Prior history of PE on anticoagulation 4. Chronic anemia 5. Asthma on chronic steroids, home O2 6. Dyslipidemia Patient here with progressive chest pain, dyspnea on exertion worse over the last several days. Found to have an elevated troponin consistent with NSTEMI. In the setting of patient's known prior intermediate multivessel coronary artery disease agree with proceeding with cardiac catheterization for further risk stratification. Discussed procedure with patient including risks, benefits, alternatives and she is willing to proceed. On chronic steroids for asthma and will continue with history of dye allergy, also received Benadryl, Zantac. Further conditions pending findings of coronary angiography. Thank you for allowing us to participate in the care of this patient. Please contact with any questions. History of Present Illness Attending Physician: Debbie Santiago MD History of Present Illness Mrs. Mahajan is a very pleasant 57-year-old woman with a history of asthma, prior VTE on anticoagulation, GERD, dyslipidemia, chronic anemia, obstructive sleep apnea and known moderate coronary artery disease transferred to [facility] yesterday in the setting of NSTEMI. Patient states that for the last 3 weeks has noted increased shortness of breath with any exertion with associated chest burning that radiates up into her neck. Over the last 2 or 3 days symptoms have progressed now with chest burning with minimal exertion such as trying to go shopping. Burning again radiating up into her neck and down her left arm. Due to symptoms presented to [facility] where he was noted to have an elevated troponin prompting transfer. Initially thought to be in acute heart failure, treated with IV Lasix. Received heparin, clopidogrel prior to transfer. Patient's cardiac history remarkable for episode of presyncope with some associated chest pain in November 2017. At that time underwent a dobutamine stress echo which reproduce symptoms and on which had reported ST depressions with subtle apical wall motion of normality. Underwent cardiac catheterization which showed a 50-60% mid circumflex lesion (IFR negative) and 40-50% mid RCA lesion(IFR negative). Social history: Former smoker quit in 2003 after 30 pack years. Family history: Father had premature coronary disease with massive [place] in his 40s Allergies Allergy/AdvReac Type Severity Reaction Status Date / Time aspirin Allergy Intermediate HIVES Verified 06/08/18 08:19 ibuprofen Allergy Intermediate HIVES Verified 06/08/18 08:19 levofloxacin Allergy Intermediate HIVES Verified 06/08/18 08:19 Iodinated Contrast- Oral and Allergy Unknown IV ONLY - Verified 06/08/18 08:19 IV Dye HIVES pregabalin AdvReac Intermediate SEVERE Verified 06/08/18 08:19 DEPRESSION zolpidem AdvReac Intermediate HALLUCINATI Verified 06/08/18 08:19 ONS gabapentin AdvReac Mild GOOFY Verified 06/08/18 08:19 THOUGHTS Home Medications Home Medications Medication Instructions Recorded Confirmed Type Prilosec OTC 20 mg PO BID 03/03/18 08/10/18 History albuterol sulfate [Ventolin HFA] 2 puff INHALATION Q4H PRN 03/03/18 08/10/18 History cholecalciferol (vitamin D3) 2,000 unit PO DAILY 03/03/18 08/10/18 History citalopram [Celexa] 40 mg PO QAM 03/03/18 08/10/18 History cyanocobalamin (vitamin B-12) 1,000 mcg PO QAM 03/03/18 08/10/18 History docusate sodium [Colace] 200 mg PO HS 03/03/18 08/10/18 History epinephrine [EpiPen] 0.3 mg IM UD PRN 03/03/18 08/10/18 History furosemide [Lasix] 40 mg PO DAILY 03/03/18 08/10/18 History nitroglycerin [Nitrostat] 1 tab SUBLINGUAL UD PRN 03/03/18 08/10/18 History polyethylene glycol 3350 [Miralax] 17 g PO UD PRN 03/03/18 08/10/18 History potassium chloride 10 meq PO BID 03/03/18 08/10/18 History prednisone 20 mg PO QAM #0 tab 03/15/18 08/10/18 Rx ipratropium-albuterol 3 ml INHALATION QID PRN 08/10/18 08/10/18 History warfarin 5 mg PO UD 08/10/18 08/10/18 History Patient History Medical History Adrenal insufficiency (Chronic) Hypogammaglobulinemia (Chronic) Chronic respiratory failure with hypoxia, on home O2 therapy (Chronic) Anemia (Chronic) GERD (gastroesophageal reflux disease) (Chronic) Chronic steroid use (Chronic) for severe asthma Heterozygous alpha 1-antitrypsin deficiency (Chronic) Dyslipidemia (Chronic) History of pulmonary embolism (Chronic) CAD (coronary artery disease) (Chronic) Nonobstructive by cardiac cath 11/2017 Asthma, severe persistent (Chronic) Disp fx of distal pole of navicular bone of left wrist w/routine heal Fracture of thoracic spine at T7-T12 level with spinal cord injury 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 Follows with pulm. On chronic steroids Prednisone 20mg and albuterol prn. Has not used albuterol since last hospital admission 03/2018. Chronic back pain Chronic respiratory failure with hypoxia RESPIRATORY ISSUES FROM ASTHMA ATTACK 5 YRS AGO/THOMASN. WAS ADMITTED FOR BOWEL PERF 2/2 DIVERTICULITIS AND ACUTE ASTHMA EXAC...POST OP ICU ON VENT X 24HRS. Depression Dyslipidemia GERD (gastroesophageal reflux disease) H/O adrenal insufficiency History of colonic diverticulitis History of pulmonary embolism 03/2015 post-op, then again spontaneously 02/2018. On Coumadin. Hypogammaglobulinemia Immunoglobulin deficiency Microscopic hematuria chronic problem Osteoporosis Seizure WORK UPS DONE FOR DX OF SEIZURES..PT REPORTS DR CASAS REPORTED THAT SEIZURES SHOULD NOT BE IN PT HX/SYMPTOMS PRIOR TO WORK UP STUDIES: STANDING UP TO QUICK AFTER SITTING FOR AN HOUR WILL GET WHOOZY FEELING, DOES NOT PASS OUT ...IF SITS BACK DOWN IS FINE Sleep apnea With hypoxemia. Using CPAP with O2 HS Steroid-induced osteoporosis Surgical History Status post hernia repair (Chronic) Status post appendectomy (Chronic) Status post cholecystectomy (Chronic) Status post partial colectomy (Chronic) Status post kyphoplasty (Chronic) History of colectomy (Chronic) COLOSTOMY AND REVERSAL History of colonoscopy (Chronic) History of cardiac catheterization (Chronic) 2017...CHEST TIGHTNESS.ABNORMAL STRESS...[facility]..BLOCKAGES 50 % 60% - NO STENT(S) FEW YEARS AGO...CHEST DISCOMFORT...[place]...NO FINDINGS Status post wrist surgery (Chronic) For fracture repair L wrist 03/2018 H/O dilation and curettage H/O exploratory laparotomy Organ biopsies for suspected Hodgkins lymphoma, long time ago H/O right knee surgery H/O sinus surgery H/O: hysterectomy History of appendectomy History of bronchoscopy "for mucous plugs" History of carpal tunnel surgery S/P herniorrhaphy Status post hernia repair Status post partial colectomy Family History Mother Hypertension Father Coronary heart disease Social History Preferred Language: Croatian Communication Ability: Effective 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: No Beliefs That Will Affect Care: None marital status: Current Living Situation: Spouse current occupational status: disabled Other Information That Helps Us Care for You: No Feels Safe at Home: Yes Safety Concerns: Feels Safe At This Time Smoking Status: Former smoker Hx Alcohol Use: No Hx Substance Use: No Review of Systems 10 point review of systems was completed and was otherwise negative unless stated in HPI Physical Exam Vital Signs (Past 24 Hours): Last Vital Signs Temp 36.9 C 08/11/18 03:24 Pulse 66 08/11/18 03:24 Resp 20 08/11/18 03:24 BP 121/69 08/11/18 03:24 Pulse Ox 97 08/11/18 03:24 Physical Exam: General: Comfortable, no acute distress Eyes: Sclerae anicteric, extraocular movements intact HENT: Oropharynx clear mucous membranes moist Neck: Normal carotid upstrokes, no bruits. No JVD. Lungs: Clear to auscultation bilaterally, no rhonchi or wheezes Cardiac: Regular rate and rhythm, no murmurs, rubs or gallops. Vascular: 2+ radial, DP and PT pulses. Abdomen: Soft, nontender, nondistended, positive bowel sounds. Extremities: Well perfused, no peripheral edema Skin: No rashes or lesions. Neuro: Nonfocal Psych: Alert orient x3, normal affect and mood Results & Data Laboratory Results Troponin on arrival here 1.8 Diagnostic Findings EKG: Sinus bradycardia, no dynamic ST changes
--- NOTE | 2018-08-11 07:44 | Pre Anesthesia Assessment ---
Date of Service August 11, 2018 Pre Sedation Assessment Vital Signs Temp Pulse Pulse Resp BP Pulse Ox 08/11/18 03:24 36.9 C 66 20 121/69 97 08/10/18 23:40 67 18 97 08/10/18 23:21 37.1 C 70 18 133/65 95 08/10/18 23:09 73 08/10/18 19:28 36.8 C 96 H 18 138/85 08/10/18 18:00 36.8 C 96 H 17 138/85 94 Cardiovascular RRR, no murmur, no edema Respiratory normal respiratory effort, lungs clear to auscultation Pre-Sedation Airway Assessment Smoking Status: Former smoker Hx Sleep Apnea: Yes Hx Difficult Intubation: No Short, Thick Neck: Yes Thyromental Distance: > or= 3.5 Finger Breadths Oral Cavity: + WNL Mallampati Class: III Procedure Planning Contraindications for Sedation: none Current Medications Reviewed: Yes Notes The planned sedation has been discussed with the patient. Informed Consent was obtained. I have identified the patient, determined the appropriateness of sedation and have assessed the patient immediately prior to the procedure. All medicine(s) and interventions are by my order.
[2018-08-11 07:57] LABS: Partial Thromboplastin Time 54.6 Seconds (21.0-31.0)
--- NOTE | 2018-08-11 08:22 | Post Anesthesia Assessment ---
Date of Service August 11, 2018 Post Sedation Assessment Vital Signs Temp Pulse Pulse Resp BP Pulse Ox 08/11/18 03:24 36.9 C 66 20 121/69 97 08/10/18 23:40 67 18 97 08/10/18 23:21 37.1 C 70 18 133/65 95 08/10/18 23:09 73 08/10/18 19:28 36.8 C 96 H 18 138/85 08/10/18 18:00 36.8 C 96 H 17 138/85 94 Recovery Score Activity: Moves 4 extremities Respiration: Deep Breath/Cough Circulation: +/-20% PreAnes Value Consciousness: Fully Awake Oxygen Saturation: O2 needed for >90% Discharge Sedation Level of Care: Fast Track Phase II Post Sedation Plan On clinical assessment, the patient appears to have tolerated the sedation without complications. Patient is recovering as anticipated. Patient will continue to be monitored by nursing and may be discharged when sedation discharge criteria are met per below protocol. Upon Completions of procedure and additional 15 minutes continue every 5 minute vital signs and the P.A.R. score; then discharge to a Phase I or Fast Track to Phase II per the following guidelines: * Discharge Patient to appropriate Phase II area if PAR is 8 or greater or return to pre- procedure baseline. The post - procedure orders will be as directed. * If PAR score is less than 8 or not return to pre-procedure baseline then patient will follow Phase I monitoring till PAR is reached for Phase II. The Phase I may be done in procedure room or may call to secure a Phase I area. * �If naloxone or flumazenil are used for reversal, hold in Phase I for continued monitoring from when last reversal dose was given for a minimum of 60 minutes or longer pending the nurse and/or physician discretion of patient condition before discharge to Phase II.� Please call the Sedation Physician to re-evaluate and complete post-note for discharge to Phase II area. Do NOT discharge from procedure sedation or Phase 1 until post- sedation evaluation note is complete by procedure /sedation MD Sedation Discharge Instructions to be given to the patient at discharge to home.
[2018-08-11] MEDS ORDERED: CLOPIDOGREL BISULFATE 300 MG TAB ONE (08:23)
--- NOTE | 2018-08-11 08:25 | Cardiac Catheterization ---
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 Gives off 2 small diagonals without significant disease. Circumflex -large caliber vessel, mid segment luminal irregularities, 90% acute stenosis in distal circumflex at takeoff of small OM2.. Moderate caliber OM1, left PLB without significant disease. RCA -moderate caliber, dominant vessel, 40% mid segment disease. LVEDP -22 -- PCI -- Antithrombotic therapy: Heparin, clopidogrel Procedure: Left main cannulated with EBU 3.5 guide BMW wire passed across lesion into distal left PLB Distal circumflex lesion predilated with 2.5 compliant balloon Dilated lesion stented with 2.5 x 26 mm [place] drug-eluting stent Stent post-dilated with 2.75 noncompliant balloon IC vasodilators administered for spasm Post procedure LAURY 3 flow, stent well expanded with minimal residual stenosis and no apparent cardiac complications. Arterial Closure: TR band Summary: 1. Severe single vessel coronary artery disease -90% acute distal circumflex �40% mid RCA 2. Elevated intracardiac filling pressure 3. Successful PCI of distal circumflex with single drug-eluting stent (2.5 x 26 mm [place]; postdilated with 2.75 NC). 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 Continue Coumadin, clopidogrel for 1 year. 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 Cardiac Status Clinical evaluation leading to the procedure CAD Presenation: Non STEMI Anginal Classification: CCS IV Heart Failure: NYHA Class: CCS III Cardiogenic Shock within 24 Hours: No Cardiac Arrest within 24 Hours: No Imaging Studies Past 6 Months: No Stress Studies Past 6 Months: No Diagnostic Physicians Name: Nadeem Arroyo MD Status: Elective Closure Device Percutaneous Entry Location: Radial Closure Device: Radial Band Recommendations: PCI without planned CABG PCI Indication: PCI for high risk Non-LIDIA Lesion Segment Name: Distal circumflex Culprit Artery: Yes Stenosis Prior to Rx (%): 90 Pre-Procedure LAURY Flow: 3 Previously Treated Lesion: No Lesion Complexity: Non-High/Non-C Lesion Length (mm): 20 Thrombus Present: Yes Bifurcation Lesion: Yes Guidewire Across Lesion: Stenosis Post-Procedure (%): 0 Post-Procedure LAURY Flow: 3 Devices(s) Deployed: Yes Yes Intraprocedure Events Significant Disection: No Perforation: No
[2018-08-11] MEDS ORDERED: ONDANSETRON INJ 2 MG/ML 2 ML VIAL IV PRN (08:33)
[2018-08-11] MEDS: CLOPIDOGREL BISULFATE 75 MG TAB PO SCH (09:45)
[2018-08-11] MEDS: ATORVASTATIN 40 MG TAB PO SCH (09:45)
[2018-08-11] MEDS: PANTOprazole 40 MG TAB PO SCH ×2 (09:45→20:18)
[2018-08-11] MEDS: predniSONE 20 MG TAB PO SCH (09:45)
[2018-08-11] MEDS: CITALOPRAM 40 MG TAB PO SCH (09:45)
--- NOTE | 2018-08-11 10:45 | Hospitalist Progress Note ---
Date of Service August 11, 2018 Assessment & Plan (1) Non-ST elevation (NSTEMI) myocardial infarction: Present at [facility] with symptoms of chest pain associated with SOB with minimal exertion She was transferred to [facility] for further eval Troponin 1.8 then increased to 1.8 Was starting on heparin drip S/p Cardiac cath done today showed: Circumflex -large caliber vessel, mid segment luminal irregularities, 90% acute stenosis in distal circumflex at takeoff of small OM2.. Moderate caliber OM1, left PLB without significant disease. RCA -moderate caliber, dominant vessel, 40% mid segment disease. S/P Successful PCI of distal circumflex with single drug-eluting stent (2.5 x 26 mm [place]; postdilated with 2.75 NC). Aspirin intolerance (urticaria) Continue Coumadin and clopidogrel for 1 year. OK from cardiology to resume coumadin today Continue statin Cardiac rehab referral Continue monitor in tele Will get echo (Since ECHO was not done at [facility] ) Not on beta-gwen (contraindicated in light of severe asthma). (2) CHF (congestive heart failure): CXR showed no acute process Continue gentle diuresis Clinically improves Echo pending (3) Asthma, severe persistent: History of severe asthma Heterozygous alpha-1 antitrypsin deficiency.. Continue prednisone and bronchodilators. Stable (4) Chronic steroid use: Chronic prednisone therapy for severe asthma; current dose is 20 mg daily. Attempts at weaning to a lower dose have been unsuccessful. Stress dose steroids as needed for physiologic stress. (5) Chronic respiratory failure with hypoxia, on home O2 therapy: Continue supplemental oxygen. (6) History of pulmonary embolism: History of pulmonary embolism on chronic warfarin therapy. INR 1.3 today On IV heparin for non-STEMI. Resume coumadin Monitor PT/INR (7) GERD (gastroesophageal reflux disease): Continue PPI. (8) Anemia: No signs of active bleeding Last colonoscopy on 06/05/17 showed diverticulosis. Last EGD on 04/10/17 showed reflux esophagitis. Received 1 units PRBC yesterday at [facility] for hgb 7.8 Hgb 9.1 today Monitor H/H (9) Dyslipidemia: LDL 154, Chol 255, HDL 55 and trig 231 Continue Statin (10) DVT prophylaxis: On IV heparin drip Coumadin resume (11) Discharge planning issues: Will discharge once medically stable by cardio Medical follow-up with CRISTOPHER Noguera. Subjective Pt was seen and examined Lying in bed with no distress Pt said that she feels tired She just got back from the cardiac cath She said that she does not have any chest pain or SOB currently She said that yesterday she urinated alot after the lasix Denies any chest pain, palpitation, dizziness and SOB Physical Exam Vital Signs (Past 24 Hours): Last Vital Signs Temp 36.5 C 08/11/18 09:10 Pulse 72 08/11/18 10:18 Resp 16 08/11/18 10:18 BP 106/73 08/11/18 10:18 Pulse Ox 95 08/11/18 10:18 Physical Exam: General- No acute distress Head- atraumatic Eyes- PERRL, EOMI, ENT- oropharynx clear Neck- supple, no JVD Lungs- No wheezing and no crackle Heart- regular rhythm; +systolic murmur Abdomen- normal bowel sounds, soft, nontender Extremities- no calf tenderness Neuro- alert, oriented x 3; PERRL, EOMI; no facial palsy; no dysarthria Skin- warm & dry
[2018-08-11 15:40] LABS: Partial Thromboplastin Ratio 2.3
[2018-08-11 15:42] LABS: Partial Thromboplastin Time 63.2 Seconds (21.0-31.0)
[2018-08-11] MEDS: WARFARIN SOD 5 MG TAB PO SCH (16:56)
[2018-08-11] MEDS: Heparin Adult STANDARD Wt-Based Dextrose 5% 25,000 units/500 mL IV SCH (20:19)
[2018-08-11] MEDS: DOCUSATE SODIUM 100 MG CAP PO SCH (20:27)
[2018-08-12 06:44] LABS: Basophils # (auto) 0.09 K/uL (0-0.2); Basophils % (auto) 0.6 %; Eosinophils # (auto) 0.34 K/uL (0-0.5); Eosinophils % (auto) 2.4 %; Hematocrit (blood only) 33.2 % (37-47); Hemoglobin 9.4 g/dL (12.0-16.0); Immature Granulocytes # (auto) 0.08 K/uL (0.00-0.02); Immature Granulocytes % (auto) 0.6 %; Lymphocytes # (auto) 3.69 K/uL (1.2-3.4); Mean Corpuscular Hgb Conc 28.3 g/dL (32-36); Mean Corpuscular Volume 75.1 fL (80-100); Mean Platelet Volume 10.7 fL (7.4-10.4); Monocytes # (auto) 0.85 K/uL (0.11-0.59); Neutrophils # (auto) 9.15 K/uL (1.4-6.5); Neutrophils % (auto) 64.4 %; Platelet Count 318 K/uL (130-400); RDW Coefficient of Variation 19.6 % (11.5-14.5); RDW Standard Deviation 53.8 fL (36.4-46.3); Red Blood Count 4.42 M/uL (4.2-5.4)
[2018-08-12 07:08] LABS: INR 1.1 (0.9-1.1); Partial Thromboplastin Ratio 2.1; Prothrombin Time 11.5 Seconds (9.0-12.0)
[2018-08-12 07:09] LABS: BUN Creatinine Ratio 16.2 (10-20); Calcium 8.9 mg/dl (8.5-10.1); Creatinine Clr Calc Pharmacy 72.4 ml/min; Est GFR (African American) 75.6; Est GFR (Non-African American) 65.2
[2018-08-12 07:10] LABS: Partial Thromboplastin Time 56.4 Seconds (21.0-31.0)
[2018-08-12 07:25] LABS: Troponin I 1.42 ng/ml (0-0.045)
[2018-08-12] MEDS: CLOPIDOGREL BISULFATE 75 MG TAB PO SCH (07:40)
[2018-08-12] MEDS: ATORVASTATIN 40 MG TAB PO SCH (07:40)
[2018-08-12] MEDS: predniSONE 20 MG TAB PO SCH (07:40)
[2018-08-12] MEDS: PANTOprazole 40 MG TAB PO SCH ×2 (07:40→19:52)
[2018-08-12] MEDS: CITALOPRAM 40 MG TAB PO SCH (07:40)
[2018-08-12] MEDS: ASPIRIN 81 MG ECTAB PO SCH (07:41)
--- NOTE | 2018-08-12 08:53 | Cardiology Progress Note ---
Date of Service August 12, 2018 Assessment & Plan (1) Non-ST elevation (NSTEMI) myocardial infarction: 2. Acute diastolic heart failure 3. Prior history of PE on anticoagulation 4. Chronic anemia 5. Asthma on chronic steroids, home O2 6. Dyslipidemia Patient post-procedure day 1 from PCI with [place] to distal circumflex. Hemodynamically and electrically stable. No access site complications. Labs stable. Some exertional SOB/tightness last night. ECG unchanged. Troponin peaked. This morning feeling well. Minimal residual non-culprit vessel CAD and low suspicion that symptoms yesterday secondary to angina. Elevated LVEDP on cath yesterday and sxs may be in part related to residual vascular congestion although appears near euvolemic on exam. Going forward: -- Up walking today, if recurrent symptoms consider trial of additional lasix -- Continue clopidogrel, ASA for next week -- After week, when INRs therapeutic can drop ASA and continue clopidogrel + coumadin for 1 year. -- Heparin can be discontinued from a cardiac standpoint if does not need to be bridged for history of VTE. -- continue statin -- If feeling well with exertion could be discharged later today from cardiac standpoint with follow-up with [facility] in [place]. Subjective Patient with shortness of breath with exertion yesterday evening. Some mild associated chest tightness. Different then presentation in that didn't go across her chest. ECG unchanged. Tele reviewed--no events Review of Systems All systems reviewed & are unremarkable except as noted in HPI & below Physical Exam Vital Signs (Past 24 Hours): Last Vital Signs Temp 36.7 C 08/12/18 06:53 Pulse 55 L 08/12/18 06:53 Resp 16 08/12/18 06:53 BP 105/64 08/12/18 06:53 Pulse Ox 98 08/12/18 06:53 Constitutional: WD/WN, vitals as above Eyes: + anicteric sclerae Neck: trachea midline, no thyromegaly Respiratory: normal respiratory effort, lungs clear to auscultation Cardiovascular: Rate/Rhythm: regular rate Heart Sounds: no murmur Gastrointestinal (Abdomen): normal bowel sounds, soft, nontender, no hepatosplenomegaly Skin: no rashes, warm and dry Psychiatric: A+Ox3, euthymic affect
[2018-08-12] MEDS: WARFARIN SOD 5 MG TAB PO SCH (16:43)
--- NOTE | 2018-08-12 17:31 | Hospitalist Progress Note ---
Date of Service August 12, 2018 Assessment & Plan (1) Non-ST elevation (NSTEMI) myocardial infarction: Present at [facility] with symptoms of chest pain associated with SOB with minimal exertion She was transferred to [facility] for further evaluation Was starting on heparin drip S/p Cardiac cath done today showed: Circumflex -large caliber vessel, mid segment luminal irregularities, 90% acute stenosis in distal circumflex at takeoff of small OM2.. Moderate caliber OM1, left PLB without significant disease. RCA -moderate caliber, dominant vessel, 40% mid segment disease. S/P Successful PCI of distal circumflex with single drug-eluting stent (2.5 x 26 mm Dangelo; postdilated with 2.75 NC). Patient reports history of aspirin allergy that was years ago Has been able to tolerate aspirin so far to date while in the hospital Continue clopidogrel, ASA for next week as per cardiology service After week, when INR is therapeutic, cardiology recommends continuing clopidogre and coumadin for 1 year without aspirin Because patient has history of thromboembolism (history of PE), will continue heparin bridge to a therapeutic INR level Continue statin (2) CHF (congestive heart failure): Acute on chronic diastolic heart failure in setting of NSTEMI treated and resolved currently appears to be euvolemic will resume home dose Lasix of 40 mg daily (3) Asthma, severe persistent: History of severe asthma Heterozygous alpha-1 antitrypsin deficiency Continue prednisone and bronchodilators (4) Chronic steroid use: Chronic prednisone therapy for severe asthma; current dose is 20 mg daily. Attempts at weaning to a lower dose have been unsuccessful. Stress dose steroids as needed for physiologic stress. (5) Chronic respiratory failure with hypoxia, on home O2 therapy: Continue supplemental oxygen. (6) History of pulmonary embolism: Because patient has history of thromboembolism (history of PE), will continue heparin bridge to a therapeutic INR level with coumadin (7) GERD (gastroesophageal reflux disease): Continue PPI. (8) Anemia: No signs of active bleeding Last colonoscopy on 06/05/17 showed diverticulosis. Last EGD on 04/10/17 showed reflux esophagitis. Received 1 units PRBC yesterday at [facility] for hgb 7.8 Hgb stable above 9 currently (9) Dyslipidemia: LDL 154, Chol 255, HDL 55 and trig 231 Continue Statin (10) DVT prophylaxis: Because patient has history of thromboembolism (history of PE), will continue heparin bridge to a therapeutic INR level with coumadin (11) Discharge planning issues: Medical follow-up with [facility]RISTOP[facility] Noguera as outpatient primary care and also will need outpatient cardiology service Subjective Patient seen and examined at the bedside. Patient reports that when she ambulates, she feels shortness of breath. Patient denies acute shortness of breath at rest. no abdominal pain. no vomiting. no distress Physical Exam Vital Signs (Past 24 Hours): Last Vital Signs Temp 37.1 C 08/12/18 15:03 Pulse 67 08/12/18 15:03 Resp 18 08/12/18 15:03 BP 101/64 08/12/18 15:03 Pulse Ox 98 08/12/18 15:03 Constitutional: WD/WN, vitals as above Eyes: PERRL, conjunctivae normal, anicteric sclerae EOM intact bilaterally ENMT: external ear and nose normal, oropharynx normal Respiratory: normal respiratory effort Cardiovascular: Rate/Rhythm: regular rate and regular rhythm Gastrointestinal (Abdomen): normal bowel sounds, soft, nontender, no hepatosplenomegaly Musculoskeletal: Head/Neck/Chest: normocephalic and head atraumatic Neurologic: PERRL, EOMI, accommodation nl, no face palsy, no dysarthria CN's II-XI intact bilaterally Psychiatric: A+Ox3, euthymic affect
[2018-08-12] MEDS: Heparin Adult STANDARD Wt-Based Dextrose 5% 25,000 units/500 mL IV SCH (19:05)
[2018-08-12] MEDS: FUROSEMIDE 40 MG TAB PO SCH (19:50)
[2018-08-12] MEDS: DOCUSATE SODIUM 100 MG CAP PO SCH (19:54)
[2018-08-13] MEDS: PANTOprazole 40 MG TAB PO SCH ×2 (08:07→21:06)
[2018-08-13] MEDS: predniSONE 20 MG TAB PO SCH (08:07)
[2018-08-13] MEDS: CLOPIDOGREL BISULFATE 75 MG TAB PO SCH (08:07)
[2018-08-13] MEDS: FUROSEMIDE 40 MG TAB PO SCH (08:07)
[2018-08-13] MEDS: ASPIRIN 81 MG ECTAB PO SCH (08:07)
[2018-08-13] MEDS: CITALOPRAM 40 MG TAB PO SCH (08:07)
[2018-08-13] MEDS: ATORVASTATIN 40 MG TAB PO SCH (08:07)
[2018-08-13 08:12] LABS: INR 1.1 (0.9-1.1); Partial Thromboplastin Ratio 1.7; Prothrombin Time 11.6 Seconds (9.0-12.0)
[2018-08-13] MEDS ORDERED: HEPARIN IV BOLUS 3,000 UNITS in SYRINGE 0 ML IV ONE (10:00)
--- NOTE | 2018-08-13 14:55 | Hospitalist Progress Note ---
Date of Service August 13, 2018 Assessment & Plan (1) Non-ST elevation (NSTEMI) myocardial infarction: Present at [facility] with symptoms of chest pain associated with SOB with minimal exertion She was transferred to [facility] for further evaluation Was starting on heparin drip S/p Cardiac cath done today showed: Circumflex -large caliber vessel, mid segment luminal irregularities, 90% acute stenosis in distal circumflex at takeoff of small OM2.. Moderate caliber OM1, left PLB without significant disease. RCA -moderate caliber, dominant vessel, 40% mid segment disease. S/P Successful PCI of distal circumflex with single drug-eluting stent (2.5 x 26 mm Dangelo; postdilated with 2.75 NC). Patient reports history of aspirin allergy that was years ago Has been able to tolerate aspirin so far to date while in the hospital Continue clopidogrel, Aspirin cardiology recommends continuing clopidogrel and coumadin when INR is therapeutic for 1 year without aspirin Because patient has history of thromboembolism (history of PE), will continue h eparin bridge to a therapeutic INR level with the coumadin Continue statin (2) CHF (congestive heart failure): Acute on chronic diastolic heart failure in setting of NSTEMI treated and resolved currently appears to be euvolemic continue home dose Lasix of 40 mg daily (3) Asthma, severe persistent: History of severe asthma Heterozygous alpha-1 antitrypsin deficiency Continue prednisone and bronchodilators (4) Chronic steroid use: Chronic prednisone therapy for severe asthma; current dose is 20 mg daily. Attempts at weaning to a lower dose have been unsuccessful. Stress dose steroids as needed for physiologic stress. (5) Chronic respiratory failure with hypoxia, on home O2 therapy: Continue supplemental oxygen. (6) History of pulmonary embolism: Because patient has history of thromboembolism (history of PE), will continue heparin bridge to a therapeutic INR level with coumadin (7) GERD (gastroesophageal reflux disease): Continue PPI. (8) Anemia: No signs of active bleeding Last colonoscopy on 06/05/17 showed diverticulosis. Last EGD on 04/10/17 showed reflux esophagitis. Received 1 units PRBC when she was at [facility] for hgb 7.8 Hgb stable above 9 currently (9) Dyslipidemia: LDL 154, Chol 255, HDL 55 and trig 231 Continue Statin (10) DVT prophylaxis: Because patient has history of thromboembolism (history of PE), will continue heparin bridge to a therapeutic INR level with coumadin; patient had received coumadin 5 mg on 08/11/18 and on 08/12/18, will increase to coumadin 7.5 mg daily starting on 08/13/18 as INR is still subtherapeutic (11) Discharge planning issues: Medical follow-up with [facility]RISTOP[facility] Noguera as outpatient primary care and also will need outpatient cardiology service Subjective Patient seen and examined at the bedside. no abdominal pain. no vomiting. no distress. is breathing on room air and ambulatory on room air still on heparin drip. INR still only 1.1 Physical Exam Vital Signs (Past 24 Hours): Last Vital Signs Temp 36.7 C 08/13/18 11:29 Pulse 71 08/13/18 11:29 Resp 18 08/13/18 11:29 BP 126/86 08/13/18 11:29 Pulse Ox 96 08/13/18 11:29 Constitutional: WD/WN, vitals as above Eyes: PERRL, conjunctivae normal, anicteric sclerae EOM intact bilaterally ENMT: external ear and nose normal, oropharynx normal Respiratory: normal respiratory effort Cardiovascular: Rate/Rhythm: regular rate and regular rhythm Gastrointestinal (Abdomen): normal bowel sounds, soft, nontender, no hepatosplenomegaly Musculoskeletal: Head/Neck/Chest: normocephalic and head atraumatic Neurologic: PERRL, EOMI, accommodation nl, no face palsy, no dysarthria CN's II-XI intact bilaterally Psychiatric: A+Ox3, euthymic affect
[2018-08-13] MEDS ORDERED: WARFARIN SOD 7.5 MG TAB PO SCH (16:00)
[2018-08-13 16:11] LABS: Partial Thromboplastin Ratio 2.1
[2018-08-13 16:50] LABS: Partial Thromboplastin Time 57.4 Seconds (21.0-31.0)
[2018-08-13] MEDS: Heparin Adult STANDARD Wt-Based Dextrose 5% 25,000 units/500 mL IV SCH (17:48)
--- NOTE | 2018-08-13 17:51 | Cardiology Progress Note ---
Date of Service August 13, 2018 Assessment & Plan (1) Non-ST elevation (NSTEMI) myocardial infarction: 2. Acute diastolic heart failure 3. Prior history of PE on anticoagulation 4. Chronic anemia 5. Asthma on chronic steroids, home O2 6. Dyslipidemia Patient stable from a cardiac standpoint. No recurrent chest pain. Breathing symptoms at baseline. Well-perfused on exam, no significant vascular congestion post diuretics. From a cardiac standpoint okay for discharge when anti-coagulation therapeutic. -- Continue clopidogrel, ASA for 1 week -- After week, when INRs therapeutic can drop ASA and continue clopidogrel + coumadin for 1 year. -- continue statin ��Repeat BMP while on diuretics --On discharge follow-up with [facility] in [place]. Subjective Patient feeling well today. States that breathing symptoms seem like baseline asthma symptoms. Denies any chest pain. Telemetry��reviewed no events. Review of Systems 10 point review of systems was completed and was otherwise negative unless stated in HPI Physical Exam Vital Signs (Past 24 Hours): Last Vital Signs Temp 37.1 C 08/13/18 15:11 Pulse 64 08/13/18 15:11 Resp 18 08/13/18 15:11 BP 123/73 08/13/18 15:11 Pulse Ox 95 08/13/18 15:11 Physical Exam: General: Comfortable, no acute distress Eyes: Sclerae anicteric, extraocular movements intact HENT: Oropharynx clear mucous membranes moist Neck: Normal carotid upstrokes, no bruits. No JVD. Lungs: Clear to auscultation bilaterally, no rhonchi or wheezes Cardiac: Regular rate and rhythm, no murmurs, rubs or gallops. Vascular: right radial artery access site with ecchymosis, no hematoma distal pulse and sensation intact. Abdomen: Soft, nontender, nondistended, positive bowel sounds. Extremities: Well perfused, no peripheral edema Skin: No rashes or lesions. Neuro: Nonfocal Psych: Alert orient x3, normal affect and mood
[2018-08-13] MEDS: DOCUSATE SODIUM 100 MG CAP PO SCH (19:47)
[2018-08-13] MEDS: POLYETHYLENE (MIRALAX) 17 GM PACK PO PRN (19:47)
[2018-08-14 06:42] LABS: INR 1.2 (0.9-1.1); Prothrombin Time 11.8 Seconds (9.0-12.0)
[2018-08-14] MEDS: CLOPIDOGREL BISULFATE 75 MG TAB PO SCH (08:22)
[2018-08-14] MEDS: PANTOprazole 40 MG TAB PO SCH ×2 (08:22→20:36)
[2018-08-14] MEDS: FUROSEMIDE 40 MG TAB PO SCH (08:22)
[2018-08-14] MEDS: CITALOPRAM 40 MG TAB PO SCH (08:22)
[2018-08-14] MEDS: ASPIRIN 81 MG ECTAB PO SCH (08:22)
[2018-08-14] MEDS: predniSONE 20 MG TAB PO SCH (08:22)
[2018-08-14] MEDS: ATORVASTATIN 40 MG TAB PO SCH (08:22)
[2018-08-14] MEDS: POLYETHYLENE (MIRALAX) 17 GM PACK PO PRN (08:27)
[2018-08-14 08:28] LABS: Partial Thromboplastin Ratio 2.5
[2018-08-14 08:35] LABS: Partial Thromboplastin Time 66.4 Seconds (21.0-31.0)
[2018-08-14] MEDS: Heparin Adult STANDARD Wt-Based Dextrose 5% 25,000 units/500 mL IV SCH (12:53)
--- NOTE | 2018-08-14 15:01 | Hospitalist Progress Note ---
Date of Service August 14, 2018 Assessment & Plan (1) Non-ST elevation (NSTEMI) myocardial infarction: Present at [facility] with symptoms of chest pain associated with SOB with minimal exertion She was transferred to [facility] for further evaluation Was starting on heparin drip S/p Cardiac cath done today showed: Circumflex -large caliber vessel, mid segment luminal irregularities, 90% acute stenosis in distal circumflex at takeoff of small OM2.. Moderate caliber OM1, left PLB without significant disease. RCA -moderate caliber, dominant vessel, 40% mid segment disease. S/P Successful PCI of distal circumflex with single drug-eluting stent (2.5 x 26 mm Dangelo; postdilated with 2.75 NC). Patient reports history of aspirin allergy that was years ago Has been able to tolerate aspirin so far to date while in the hospital Continue clopidogrel, Aspirin cardiology recommends continuing clopidogrel and coumadin when INR is therapeutic for 1 year without aspirin Because patient has history of thromboembolism (history of PE), will continue h eparin bridge to a therapeutic INR level with the coumadin Continue statin (2) CHF (congestive heart failure): Acute on chronic diastolic heart failure in setting of NSTEMI treated and resolved currently appears to be euvolemic continue home dose Lasix of 40 mg daily (3) Asthma, severe persistent: History of severe asthma Heterozygous alpha-1 antitrypsin deficiency Continue prednisone and bronchodilators (4) Chronic steroid use: Chronic prednisone therapy for severe asthma; current dose is 20 mg daily. Attempts at weaning to a lower dose have been unsuccessful. Stress dose steroids as needed for physiologic stress. (5) Chronic respiratory failure with hypoxia, on home O2 therapy: Continue supplemental oxygen. (6) History of pulmonary embolism: Because patient has history of thromboembolism (history of PE), will continue heparin bridge to a therapeutic INR level with coumadin (7) GERD (gastroesophageal reflux disease): Continue PPI. (8) Anemia: No signs of active bleeding Last colonoscopy on 06/05/17 showed diverticulosis. Last EGD on 04/10/17 showed reflux esophagitis. Received 1 units PRBC when she was at [facility] for hgb 7.8 Hgb stable above 9 recently (9) Dyslipidemia: LDL 154, Chol 255, HDL 55 and trig 231 Continue Statin (10) DVT prophylaxis: Anticoagulated on anticoagulation therapy Because patient has history of thromboembolism (history of PE), will continue heparin bridge to a therapeutic INR level with coumadin; patient had received coumadin 5 mg on 08/11/18 and on 08/12/18, received coumadin 7.5 mg daily on 08/13/18 as INR subtherapeutic will get coumadin 10 mg daily on 08/14/18 as INR is subtherapeutic as 1.2 (11) Discharge planning issues: Medical follow-up with [facility] Noguera as outpatient primary care and also will need outpatient cardiology service Subjective Patient seen and examined at the bedside. no abdominal pain. no vomiting. no distress. is breathing on room air. reports she is ambulatory without problems still on heparin drip. INR still only 1.2 Physical Exam Vital Signs (Past 24 Hours): Last Vital Signs Temp 36.8 C 08/14/18 10:58 Pulse 74 08/14/18 10:58 Resp 19 08/14/18 10:58 BP 120/81 08/14/18 10:58 Pulse Ox 93 08/14/18 10:58 Constitutional: WD/WN, vitals as above Eyes: PERRL, conjunctivae normal, anicteric sclerae EOM intact bilaterally ENMT: external ear and nose normal, oropharynx normal Respiratory: normal respiratory effort Cardiovascular: Rate/Rhythm: regular rate and regular rhythm Gastrointestinal (Abdomen): normal bowel sounds, soft, nontender, no hepatosplenomegaly Musculoskeletal: Head/Neck/Chest: normocephalic and head atraumatic Neurologic: PERRL, EOMI, accommodation nl, no face palsy, no dysarthria CN's II-XI intact bilaterally Psychiatric: A+Ox3, euthymic affect
[2018-08-14] MEDS: WARFARIN SOD 10 MG TAB PO SCH (17:20)
[2018-08-14] MEDS: DOCUSATE SODIUM 100 MG CAP PO SCH (20:36)
[2018-08-14] MEDS: ACETAMINOPHEN 325 MG TAB PO PRN (23:36)
[2018-08-15] MEDS ORDERED: MoRPHine SULFATE 4 MG/ML 1 ML CARP\\VIAL IV STA (00:26)
[2018-08-15 05:57] LABS: INR 1.4 (0.9-1.1); Partial Thromboplastin Ratio 2.9; Prothrombin Time 13.7 Seconds (9.0-12.0)
[2018-08-15 06:02] LABS: Hematocrit (blood only) 35.3 % (37-47); Hemoglobin 10.5 g/dL (12.0-16.0); Mean Corpuscular Hgb Conc 29.7 g/dL (32-36); Mean Corpuscular Volume 75.3 fL (80-100); Platelet Count 323 K/uL (130-400); Red Blood Count 4.69 M/uL (4.2-5.4); White Blood Count 13.88 K/uL (4.8-10.8)
[2018-08-15 06:04] LABS: Basophils # (auto) 0.06 K/uL (0-0.2); Basophils % (auto) 0.4 %; Eosinophils # (auto) 0.27 K/uL (0-0.5); Eosinophils % (auto) 1.9 %; Hypochromasia Present; Immature Granulocytes % (auto) 0.7 %; Lymphocytes # (auto) 3.65 K/uL (1.2-3.4); Lymphocytes % (auto) 26.3 %; Monocytes # (auto) 1.11 K/uL (0.11-0.59); Neutrophils # (auto) 8.69 K/uL (1.4-6.5); Neutrophils % (auto) 62.7 %; Ovalocytes 1+; Polychromasia 1+; Tear Drop Cells 1+
[2018-08-15 06:25] LABS: Partial Thromboplastin Time 77.5 Seconds (21.0-31.0)
[2018-08-15] MEDS: PANTOprazole 40 MG TAB PO SCH ×2 (07:35→20:13)
[2018-08-15] MEDS: FUROSEMIDE 40 MG TAB PO SCH (07:35)
[2018-08-15] MEDS: CITALOPRAM 40 MG TAB PO SCH (07:35)
[2018-08-15] MEDS: CLOPIDOGREL BISULFATE 75 MG TAB PO SCH (07:35)
[2018-08-15] MEDS: ATORVASTATIN 40 MG TAB PO SCH (07:35)
[2018-08-15] MEDS: ASPIRIN 81 MG ECTAB PO SCH (07:36)
[2018-08-15] MEDS: predniSONE 20 MG TAB PO SCH (07:36)
[2018-08-15] MEDS: Heparin Adult STANDARD Wt-Based Dextrose 5% 25,000 units/500 mL IV SCH (08:19)
--- NOTE | 2018-08-15 08:50 | Hospitalist Progress Note ---
Date of Service August 15, 2018 Assessment & Plan (1) Non-ST elevation (NSTEMI) myocardial infarction: Present at [facility] with symptoms of chest pain associated with SOB with minimal exertion She was transferred to [facility] for further evaluation Was starting on heparin drip S/p Cardiac cath done today showed: Circumflex -large caliber vessel, mid segment luminal irregularities, 90% acute stenosis in distal circumflex at takeoff of small OM2.. Moderate caliber OM1, left PLB without significant disease. RCA -moderate caliber, dominant vessel, 40% mid segment disease. S/P Successful PCI of distal circumflex with single drug-eluting stent (2.5 x 26 mm Dangelo; postdilated with 2.75 NC). Patient reports history of aspirin allergy that was years ago Has been able to tolerate aspirin so far to date while in the hospital Continue clopidogrel, Aspirin cardiology recommends continuing clopidogrel and coumadin when INR is therapeutic for 1 year without aspirin Because patient has history of thromboembolism (history of PE), will continue h eparin bridge to a therapeutic INR level with the coumadin received coumadin 7.5 mg daily on 08/13/18 as INR subtherapeutic received coumadin 10 mg daily on 08/14/18 as INR is subtherapeutic as 1.2 INR on 08/15/18 is 1.4 and to continue coumadin with heparin drip Continue statin 08/14/18 to 08/15/18: Overnight, patient was unclear whether she was having back pain or chest pain. Nocturnal hospitalist send off serial troponins which was 0.317 with EKG on 08/15/18 as unchanged as compared to that of 08/12/18 with a follow up troponin that nakul to 0.533 in the AM of 08/15/18. Patient seen and examined at bedside. She reported feeling some palpitations when ambulated to bathroom this AM wound 7 AM. Generally no acute telemetry events on monitoring. -will consult cardiology, will repeat troponin and EKG, continue current antiplatelet and anticoagulation treatment (2) CHF (congestive heart failure): Acute on chronic diastolic heart failure in setting of NSTEMI treated and resolved currently appears to be euvolemic continue home dose Lasix of 40 mg daily (3) Asthma, severe persistent: History of severe asthma Heterozygous alpha-1 antitrypsin deficiency Continue prednisone and bronchodilators (4) Chronic steroid use: Chronic prednisone therapy for severe asthma; current dose is 20 mg daily. Attempts at weaning to a lower dose have been unsuccessful. Stress dose steroids as needed for physiologic stress. (5) Chronic respiratory failure with hypoxia, on home O2 therapy: Continue supplemental oxygen as needed recently has been saturating well on room air (6) History of pulmonary embolism: Because patient has history of thromboembolism (history of PE), will continue heparin bridge to a therapeutic INR level with coumadin (7) GERD (gastroesophageal reflux disease): Continue PPI. (8) Anemia: No signs of active bleeding Last colonoscopy on 06/05/17 showed diverticulosis. Last EGD on 04/10/17 showed reflux esophagitis. Received 1 units PRBC when she was at [facility] for hgb 7.8 Hgb stable above 9 recently (9) Dyslipidemia: LDL 154, Chol 255, HDL 55 and trig 231 Continue Statin (10) DVT prophylaxis: Anticoagulated on anticoagulation therapy Because patient has history of thromboembolism (history of PE), will continue heparin bridge to a therapeutic INR level with coumadin; patient had received coumadin 5 mg on 08/11/18 and on 08/12/18, received coumadin 7.5 mg daily on 08/13/18 as INR subtherapeutic received coumadin 10 mg daily on 08/14/18 as INR is subtherapeutic as 1.2 INR on 08/15/18 is 1.4 and to continue coumadin with heparin drip (11) Discharge planning issues: Medical follow-up with [facility] Noguera as outpatient primary care and also will need outpatient cardiology service Subjective Overnight, patient was unclear whether she was having back pain or chest pain. Nocturnal hospitalist send off serial troponins which was 0.317 with EKG on 08/15/18 as unchanged as compared to that of 08/12/18 with a follow up troponin that nakul to 0.533 in the AM of 08/15/18. Patient seen and examined at bedside. She reported feeling some palpitations when ambulated to bathroom this AM wound 7 AM. Generally no acute telemetry events on monitoring. Patient not in distress. appears comfortable on the bed. no chest pain currently or back pain. no shortness fo breath. no abdominal pain. no vomiting Physical Exam Vital Signs (Past 24 Hours): Last Vital Signs Temp 36.7 C 08/15/18 07:30 Pulse 62 08/15/18 07:30 Resp 18 08/15/18 07:30 BP 120/78 08/15/18 07:30 Pulse Ox 99 08/15/18 07:30 Constitutional: WD/WN, vitals as above Eyes: PERRL, conjunctivae normal, anicteric sclerae EOM intact bilaterally ENMT: external ear and nose normal, oropharynx normal Respiratory: normal respiratory effort Cardiovascular: Rate/Rhythm: regular rate and regular rhythm Extremities: + edema (mild 1 + edema bilaterally) Gastrointestinal (Abdomen): normal bowel sounds, soft, nontender, no hepatosplenomegaly Musculoskeletal: Head/Neck/Chest: normocephalic and head atraumatic Neurologic: PERRL, EOMI, accommodation nl, no face palsy, no dysarthria CN's II-XI intact bilaterally Psychiatric: A+Ox3, euthymic affect
--- NOTE | 2018-08-15 09:31 | Cardiology Consultation ---
Date of Consultation August 15, 2018 Assessment & Plan (1) Chest pain: Patient reports atypical left scapular discomfort radiating to her left shoulder. ECG performed last evening as well as this a.m. without acute changes. Cardiac enzymes are mildly elevated however significantly reduced sin ce admission. Currently pain-free. Pain responsive to morphine. No dysrhythmias on telemetry. Repeat cardiac enzymes x1 set. Symptoms do not represent acute stent thrombosis. (2) Non-ST elevation (NSTEMI) myocardial infarction: Patient treated with drug-eluting stent implantation to the left circumflex. Mild residual CAD noted. Currently treated with aspirin, Plavix, and IV heparin as a bridge to Coumadin. Long-term anticoagulation indicated due to history of pulmonary embolus. Continue dual antiplatelet therapy per recommendations of interventional cardiology. (3) Presence of stent in left circumflex coronary artery: (4) Chronic diastolic heart failure: Patient appears compensated. Continue Lasix 40 mg daily. (5) History of pulmonary embolism: History of Present Illness Reason for Consultation: Chest pain, recent PCI Requesting Physician: Dr. Jeffery Attending Physician: Waldemar Jeffery MD History of Present Illness 49-year-old female admitted with NSTEMI. Patient transferred from [facility]. Drug-eluting stent placed to the left circumflex 08/11/18. Carries a h istory of pulmonary embolus on chronic anticoagulation. I was asked to see the patient today due to episode of left scapular discomfort last evening. Patient reported pain in her left scapula radiating to her left shoulder. Discomfort lasted nearly 40 minutes. She was treated with morphine. Pain relieved overnight. No dysrhythmias on telemetry. ECG unremarkable. Cardiac enzymes remain mildly elevated. Treated with aspirin, Plavix, and IV heparin since catheterization. There is a history of aspirin allergy, however, patient taking aspirin without reaction since intervention. Currently pain-free. Reports history of chronic back pain and reactive airways disease. Cardiac catheterization report 08/11/2018: LM -angiographically normal LAD -mid caliber vessel, proximal luminal irregularities, distal vessel wraps around the apex. Gives off 2 small diagonals without significant disease. Circumflex -large caliber vessel, mid segment luminal irregularities, 90% acute stenosis in distal circumflex at takeoff of small OM2.. Moderate caliber OM1, left PLB without significant disease. RCA -moderate caliber, dominant vessel, 40% mid segment disease. Allergies Allergy/AdvReac Type Severity Reaction Status Date / Time aspirin Allergy Intermediate HIVES Verified 06/08/18 08:19 ibuprofen Allergy Intermediate HIVES Verified 06/08/18 08:19 levofloxacin Allergy Intermediate HIVES Verified 06/08/18 08:19 Iodinated Contrast- Oral and Allergy Unknown IV ONLY - Verified 06/08/18 08:19 IV Dye HIVES pregabalin AdvReac Intermediate SEVERE Verified 06/08/18 08:19 DEPRESSION zolpidem AdvReac Intermediate HALLUCINATI Verified 06/08/18 08:19 ONS gabapentin AdvReac Mild GOOFY Verified 06/08/18 08:19 THOUGHTS Home Medications Home Medications Medication Instructions Recorded Confirmed Type Prilosec OTC 20 mg PO BID 03/03/18 08/10/18 History albuterol sulfate [Ventolin HFA] 2 puff INHALATION Q4H PRN 03/03/18 08/10/18 History cholecalciferol (vitamin D3) 2,000 unit PO DAILY 03/03/18 08/10/18 History citalopram [Celexa] 40 mg PO QAM 03/03/18 08/10/18 History cyanocobalamin (vitamin B-12) 1,000 mcg PO QAM 03/03/18 08/10/18 History docusate sodium [Colace] 200 mg PO HS 03/03/18 08/10/18 History epinephrine [EpiPen] 0.3 mg IM UD PRN 03/03/18 08/10/18 History furosemide [Lasix] 40 mg PO DAILY 03/03/18 08/10/18 History nitroglycerin [Nitrostat] 1 tab SUBLINGUAL UD PRN 03/03/18 08/10/18 History polyethylene glycol 3350 [Miralax] 17 g PO UD PRN 03/03/18 08/10/18 History potassium chloride 10 meq PO BID 03/03/18 08/10/18 History prednisone 20 mg PO QAM #0 tab 03/15/18 08/10/18 Rx ipratropium-albuterol 3 ml INHALATION QID PRN 08/10/18 08/10/18 History warfarin 5 mg PO UD 08/10/18 08/10/18 History Patient History Medical History Adrenal insufficiency (Chronic) Hypogammaglobulinemia (Chronic) Chronic respiratory failure with hypoxia, on home O2 therapy (Chronic) Anemia (Chronic) GERD (gastroesophageal reflux disease) (Chronic) Chronic steroid use (Chronic) for severe asthma Heterozygous alpha 1-antitrypsin deficiency (Chronic) Dyslipidemia (Chronic) History of pulmonary embolism (Chronic) CAD (coronary artery disease) (Chronic) Nonobstructive by cardiac cath 11/2017 Asthma, severe persistent (Chronic) Disp fx of distal pole of navicular bone of left wrist w/routine heal Fracture of thoracic spine at T7-T12 level with spinal 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 Follows with pulm. On chronic steroids Prednisone 20mg and albuterol prn. Has not used albuterol since last hospital admission 03/2018. Chronic back pain Chronic respiratory failure with hypoxia RESPIRATORY ISSUES FROM [facility]RS [facility] WAS ADM[facility] FOR BOWEL PERF 2/2 DIVERTICULITIS AND ACUTE ASTHMA EXAC...POST OP ICU ON VENT X 24HRS. Depression Dyslipidemia GERD (gastroesophageal reflux disease) H/O adrenal insufficiency History of colonic diverticulitis History of pulmonary embolism 03/2015 post-op, then again spontaneously 02/2018. On Coumadin. Hypogammaglobulinemia Immunoglobulin deficiency Microscopic hematuria chronic problem Osteoporosis Seizure WORK UPS DONE FOR DX OF SEIZURES..PT REPORTS DR CASAS REPORTED THAT SEIZURES SHOULD NOT BE IN PT HX/SYMPTOMS PRIOR TO WORK UP STUDIES: STANDING UP TO QUICK AFTER SITTING FOR AN HOUR WILL GET WHOOZY FEELING, DOES NOT PASS OUT ...IF SITS BACK DOWN IS FINE Sleep apnea With hypoxemia. Using CPAP with O2 HS Steroid-induced osteoporosis Surgical History Status post hernia repair (Chronic) Status post appendectomy (Chronic) Status post cholecystectomy (Chronic) Status post partial colectomy (Chronic) Status post kyphoplasty (Chronic) History of colectomy (Chronic) COLOSTOMY AND REVERSAL History of colonoscopy (Chronic) History of cardiac catheterization (Chronic) 2017...CHEST TIGHTNESS.ABNORMAL STRESS...[facility]BLOCKAGES 50 % 60% - NO STENT(S) FEW YEARS AGO...CHEST DISCOMFORT...[place]...NO FINDINGS Status post wrist surgery (Chronic) For fracture repair L wrist 03/2018 H/O dilation and curettage H/O exploratory laparotomy Organ biopsies for suspected Hodgkins lymphoma, long time ago H/O right knee surgery H/O sinus surgery H/O: hysterectomy History of appendectomy History of bronchoscopy "for mucous plugs" History of carpal tunnel surgery S/P herniorrhaphy Status post hernia repair Status post partial colectomy Family History Mother Hypertension Father Coronary heart disease Social History Communication Ability: Effective Beliefs That Will Affect Care: None marital status: Current Living Situation: Spouse current occupational status: disabled Other Information That Helps Us Care for You: No Feels Safe at Home: Yes Safety Concerns: Feels Safe At This Time Smoking Status: Former smoker Hx Alcohol Use: No Hx Substance Use: No Review of Systems Pertinent positives noted per HPI, comprehensive 10 system review otherwise negative. Physical Exam Vital Signs (Past 24 Hours): Last Vital Signs Temp 36.7 C 08/15/18 07:30 Pulse 62 08/15/18 07:30 Resp 18 08/15/18 07:30 BP 120/78 08/15/18 07:30 Pulse Ox 99 08/15/18 07:30 Physical Exam: General: NAD, AAO x3, well nourished. Obese. HEENT: Normocephalic. Atraumatic. Conjunctiva pink, no scleral icterus. Neck: No carotid bruits, the carotid upstrokes are brisk. No JVD. No HJR Heart: Regular normal S-1 and S-2 no S-3 or S-4 gallop. No murmurs or rub appreciated. PMI is not displaced. No RV heave. Lungs: Diminished breath sounds bilateral without rales , rhonchi, or wheeze. Abdomen: Normal bowel sounds. Soft. Nontender. No masses or organomegaly. No abdominal bruits. Extremities: No clubbing, cyanosis, or edema. Pulses: radial=2/4, Dorsalis pedis =2/4, posterior tibial=2/4. Neuro: Cranial nerves grossly intact. No focal motor deficit. (1) Chest pain Chest pain type: other chest pain Qualified Code(s): R07.89 - Other chest pain; R07.8 - Other chest pain
[2018-08-15 13:11] LABS: Partial Thromboplastin Time 53.8 Seconds (21.0-31.0)
[2018-08-15] MEDS: WARFARIN SOD 10 MG TAB PO SCH (15:09)
[2018-08-15] MEDS: ACETAMINOPHEN 325 MG TAB PO PRN (15:10)
[2018-08-15] MEDS ORDERED: LIDOCAINE HCL 5% OINT 30 GM TUBE EXT STA (15:13)
[2018-08-15] MEDS: DOCUSATE SODIUM 100 MG CAP PO SCH (20:13)
[2018-08-16 06:17] LABS: INR 1.7 (0.9-1.1); Prothrombin Time 17.1 Seconds (9.0-12.0)
[2018-08-16] MEDS: Heparin Adult STANDARD Wt-Based Dextrose 5% 25,000 units/500 mL IV SCH (06:30)
[2018-08-16] MEDS: PANTOprazole 40 MG TAB PO SCH ×2 (08:28→20:59)
[2018-08-16] MEDS: predniSONE 20 MG TAB PO SCH (08:28)
[2018-08-16] MEDS: ATORVASTATIN 40 MG TAB PO SCH (08:28)
[2018-08-16] MEDS: CLOPIDOGREL BISULFATE 75 MG TAB PO SCH (08:28)
[2018-08-16] MEDS: ASPIRIN 81 MG ECTAB PO SCH (08:28)
[2018-08-16] MEDS: FUROSEMIDE 40 MG TAB PO SCH (08:29)
[2018-08-16] MEDS: CITALOPRAM 40 MG TAB PO SCH (08:29)
[2018-08-16] MEDS: LIDOCAINE 5% 1 PATCH TD SCH (09:00)
--- NOTE | 2018-08-16 09:01 | Hospitalist Progress Note ---
Date of Service August 16, 2018 Assessment & Plan (1) Non-ST elevation (NSTEMI) myocardial infarction: Present at [facility] with symptoms of chest pain associated with SOB with minimal exertion She was transferred to [facility] for further evaluation Was starting on heparin drip S/p Cardiac cath done today showed: Circumflex -large caliber vessel, mid segment luminal irregularities, 90% acute stenosis in distal circumflex at takeoff of small OM2.. Moderate caliber OM1, left PLB without significant disease. RCA -moderate caliber, dominant vessel, 40% mid segment disease. S/P Successful PCI of distal circumflex with single drug-eluting stent (2.5 x 26 mm [place]; postdilated with 2.75 NC). Patient reports history of aspirin allergy that was years ago Has been able to tolerate aspirin so far to date while in the hospital Continue clopidogrel, Aspirin cardiology recommends continuing clopidogrel and coumadin when INR is therapeutic for 1 year without aspirin Because patient has history of thromboembolism (history of PE), will continue h eparin bridge to a therapeutic INR level with the coumadin Continue statin 08/14/18 to 08/15/18: Overnight, patient was unclear whether she was having back pain or chest pain. Nocturnal hospitalist send off serial troponins which was 0.317 with EKG on 08/15/18 as unchanged as compared to that of 08/12/18 with a follow up troponin that nakul to 0.533 in the AM of 08/15/18. Patient seen and examined at bedside. She reported feeling some palpitations when ambulated to bathroom this AM wound 7 AM. Generally no acute telemetry events on monitoring. troponin downtrended to 0.240. as per cardiology service symptoms and troponin levels do not represent acute stent thrombosis (2) CHF (congestive heart failure): Acute on chronic diastolic heart failure in setting of NSTEMI treated and resolved currently appears to be euvolemic continue home dose Lasix of 40 mg daily (3) Asthma, severe persistent: History of severe asthma Heterozygous alpha-1 antitrypsin deficiency Continue prednisone and bronchodilators (4) Chronic steroid use: Chronic prednisone therapy for severe asthma; current dose is 20 mg daily. Attempts at weaning to a lower dose have been unsuccessful. Stress dose steroids as needed for physiologic stress. (5) Chronic respiratory failure with hypoxia, on home O2 therapy: Continue supplemental oxygen as needed recently has been saturating well on room air (6) History of pulmonary embolism: Because patient has history of thromboembolism (history of PE), will continue heparin bridge to a therapeutic INR level with coumadin patient had received coumadin 5 mg on 08/11/18 and on 08/12/18 received coumadin 7.5 mg on 08/13/18 as INR subtherapeutic received coumadin 10 mg on 08/14/18 as INR is subtherapeutic as 1.2 received coumadin 10 mg on 08/15/18 as INR is subtherapeutic as 1.4 INR on 08/16/18 is 1.7 which is near goal of INR 2 to 3 and will resume patient's home dose coumadin which is coumadin 5 mg daily on every Friday/Friday//Friday and coumadin 7.5 mg daily on every Friday/Friday/Friday, so patient will get coumadin 5 mg on 08/16/18 with the heparin drip to avoid supratherapeutic INR (7) GERD (gastroesophageal reflux disease): Continue PPI. (8) Anemia: No signs of active bleeding Last colonoscopy on 06/05/17 showed diverticulosis. Last EGD on 04/10/17 showed reflux esophagitis. Received 1 units PRBC when she was at [facility] for hgb 7.8 Hgb stable above 9 recently and is 10.5 on 08/15/18 (9) Dyslipidemia: LDL 154, Chol 255, HDL 55 and trig 231 Continue Statin (10) DVT prophylaxis: Anticoagulated on anticoagulation therapy (11) Discharge planning issues: Medical follow-up with CRISTOPHER Noguera as outpatient primary care and also will need outpatient cardiology service Subjective Patient not in distress. appears comfortable on the bed. no chest pain currently or back pain. no shortness fo breath. no abdominal pain. no vomiting Physical Exam Vital Signs (Past 24 Hours): Last Vital Signs Temp 37.2 C 08/16/18 07:50 Pulse 66 08/16/18 08:00 Resp 16 08/16/18 07:50 BP 153/94 H 08/16/18 07:50 Pulse Ox 99 08/16/18 07:50 Constitutional: WD/WN, vitals as above Eyes: PERRL, conjunctivae normal, anicteric sclerae EOM intact bilaterally ENMT: external ear and nose normal, oropharynx normal Respiratory: normal respiratory effort Cardiovascular: Rate/Rhythm: regular rate and regular rhythm Extremities: + edema (mild 1 + edema bilaterally) Gastrointestinal (Abdomen): normal bowel sounds, soft, nontender, no hepatosplenomegaly Musculoskeletal: Head/Neck/Chest: normocephalic and head atraumatic Neurologic: PERRL, EOMI, accommodation nl, no face palsy, no dysarthria CN's II-XI intact bilaterally Psychiatric: A+Ox3, euthymic affect
[2018-08-16 09:18] LABS: Partial Thromboplastin Ratio 2.4
[2018-08-16 09:19] LABS: Partial Thromboplastin Time 64.2 Seconds (21.0-31.0)
--- NOTE | 2018-08-16 14:21 | Cardiology Progress Note ---
Date of Service August 16, 2018 Assessment & Plan (1) Chest pain: No significant troponin elevation or ECG changes. Patient pain-free over the past 18 hours. Suspect musculoskeletal origin. No medication changes at this time. Cardiology will sign off. Please call with questions. (2) Non-ST elevation (NSTEMI) myocardial infarction: Drug-eluting stent implanted to the left circumflex. Mild residual CAD noted. Currently treated with aspirin, Plavix, and IV heparin as a bridge to Coumadin. Long-term anticoagulation indicated due to history of pulmonary embolus. Continue dual antiplatelet therapy per recommendations of interventional cardiology. (3) Presence of stent in left circumflex coronary artery: (4) Chronic diastolic heart failure: Patient appears compensated. Continue Lasix 40 mg daily. (5) History of pulmonary embolism: Subjective Patient seen and examined at the bedside. No recurrent chest or scapular discomfort overnight. Feeling well from a cardiovascular perspective. Denies palpitations, lightheaded, dizziness, syncopal, or near syncope. No orthopnea or paroxysmal nocturnal dyspnea. No signs or symptoms of GI/ blood loss. INR subtherapeutic. Review of Systems All systems reviewed & are unremarkable except as noted in HPI & below Physical Exam Vital Signs (Past 24 Hours): Last Vital Signs Temp 36.7 C 08/16/18 11:24 Pulse 65 08/16/18 11:24 Resp 20 08/16/18 11:24 BP 118/86 08/16/18 11:24 Pulse Ox 96 08/16/18 11:24 Physical Exam: General: NAD, AAO x3, well nourished. Obese. HEENT: Normocephalic. Atraumatic. Conjunctiva pink, no scleral icterus. Neck: No carotid bruits, the carotid upstrokes are brisk. No JVD. No HJR Heart: Regular normal S-1 and S-2 no S-3 or S-4 gallop. No murmurs or rub appreciated. PMI is not displaced. No RV heave. Lungs: Diminished breath sounds bilateral without rales , rhonchi, or wheeze. Abdomen: Normal bowel sounds. Soft. Nontender. No masses or organomegaly. No abdominal bruits. Extremities: No clubbing, cyanosis, or edema. Pulses: radial=2/4, Dorsalis pedis =2/4, posterior tibial=2/4. Neuro: Cranial nerves grossly intact. No focal motor deficit. (1) Chest pain Chest pain type: other chest pain Qualified Code(s): R07.89 - Other chest pain; R07.8 - Other chest pain
[2018-08-16 15:08] LABS: BUN Creatinine Ratio 16.6 (10-20); Calcium 9.4 mg/dl (8.5-10.1); Creatinine Clr Calc Pharmacy 64.7 ml/min; Est GFR (African American) 66.3; Est GFR (Non-African American) 57.2; Potassium 4.5 mmol/L (3.5-5.1)
[2018-08-16] MEDS ORDERED: WARFARIN SOD 5 MG TAB PO SCH (16:00)
[2018-08-16] MEDS: DOCUSATE SODIUM 100 MG CAP PO SCH (20:59)
[2018-08-17] MEDS: Heparin Adult STANDARD Wt-Based Dextrose 5% 25,000 units/500 mL IV SCH (04:16)
[2018-08-17 06:36] LABS: Partial Thromboplastin Ratio 3.3
[2018-08-17 06:45] LABS: Partial Thromboplastin Time 90.1 Seconds (21.0-31.0)
[2018-08-17 07:18] LABS: Prothrombin Time 19.5 Seconds (9.0-12.0)
[2018-08-17] MEDS: CITALOPRAM 40 MG TAB PO SCH (08:06)
[2018-08-17] MEDS: ATORVASTATIN 40 MG TAB PO SCH (08:06)
[2018-08-17] MEDS: ASPIRIN 81 MG ECTAB PO SCH (08:07)
[2018-08-17] MEDS: LIDOCAINE 5% 1 PATCH TD SCH (08:07)
[2018-08-17] MEDS: CLOPIDOGREL BISULFATE 75 MG TAB PO SCH (08:07)
[2018-08-17] MEDS: PANTOprazole 40 MG TAB PO SCH (08:07)
[2018-08-17] MEDS: predniSONE 20 MG TAB PO SCH (08:07)
[2018-08-17] MEDS: FUROSEMIDE 40 MG TAB PO SCH (08:08)
--- NOTE | 2018-08-17 09:21 | Hospitalist Progress Note ---
Date of Service August 17, 2018 Assessment & Plan (1) Non-ST elevation (NSTEMI) myocardial infarction: Non-ST elevation (NSTEMI) myocardial infarction (Drug-eluting stent implanted to the left circumflex) Present at [facility] with symptoms of chest pain associated with SOB with minimal exertion She was transferred to [facility] for further evaluation Was starting on heparin drip S/p Cardiac cath done today showed: Circumflex -large caliber vessel, mid segment luminal irregularities, 90% acute stenosis in distal circumflex at takeoff of small OM2.. Moderate caliber OM1, left PLB without significant disease. RCA -moderate caliber, dominant vessel, 40% mid segment disease. S/P Successful PCI of distal circumflex with single drug-eluting stent (2.5 x 26 mm [place]; postdilated with 2.75 NC). Patient reports history of aspirin allergy that was years ago Has been able to tolerate aspirin while in the hospital and was on clopidogrel, Aspirin cardiology recommended continuing clopidogrel and coumadin when INR is therapeutic for 1 year without aspirin Because patient has history of thromboembolism (history of PE), she was kept inpatient to continue heparin bridge to a therapeutic INR level with the coumadin Continue statin 08/14/18 to 08/15/18: Overnight, patient was unclear whether she was having back pain or chest pain. Nocturnal hospitalist send off serial troponins which was 0.317 with EKG on 08/15/18 as unchanged as compared to that of 08/12/18 with a follow up troponin that nakul to 0.533 in the AM of 08/15/18. Patient seen and examined at bedside. She reported feeling some palpitations when ambulated to bathroom this AM wound 7 AM. Generally no acute telemetry events on monitoring. troponin downtrended to 0.240. as per cardiology service symptoms and troponin levels do not represent acute stent thrombosis Patient completed heparin with bridge to coumadin level of INR of 2 while she was on aspirin and clopidogrel INR on 08/17/18 is 2 and at goal target so heparin drip stopped and patient to be discharged to home Discharge to home Take atorvastatin 40 mg daily continue home schedule coumadin 5 mg daily on every Friday/Friday//Friday; and home schedule coumadin 7.5 mg daily on every Friday/Friday/Friday (goal INR levels is between 2 to 3) Take clopidogrel daily for 1 year with the coumadin (2) CHF (congestive heart failure): Acute on chronic diastolic heart failure in setting of NSTEMI treated and resolved currently appears to be compensated continue home dose Lasix of 40 mg daily (3) Asthma, severe persistent: History of severe asthma Heterozygous alpha-1 antitrypsin deficiency Continue prednisone, and bronchodilators as needed (4) Chronic steroid use: Chronic prednisone therapy for severe asthma; current dose is 20 mg daily. Attempts at weaning to a lower dose have been unsuccessful. (5) Chronic respiratory failure with hypoxia, on home O2 therapy: Continue supplemental oxygen as needed recently has been saturating well on room air (6) History of pulmonary embolism: Because patient has history of thromboembolism (history of PE), will continue heparin bridge to a therapeutic INR level with coumadin patient had received coumadin 5 mg on 08/11/18 and on 08/12/18 received coumadin 7.5 mg on 08/13/18 as INR subtherapeutic received coumadin 10 mg on 08/14/18 as INR is subtherapeutic as 1.2 received coumadin 10 mg on 08/15/18 as INR is subtherapeutic as 1.4 INR on 08/16/18 is 1.7 which is near goal of INR 2 to 3 and will resume patient's home dose coumadin which is coumadin 5 mg daily on every Friday/Friday//Friday and coumadin 7.5 mg daily on every Friday/Friday/Friday, so patient will get coumadin 5 mg on 08/16/18 with the heparin drip to avoid supratherapeutic INR INR on 08/17/18 is 2 and at goal target so heparin drip stopped and patient to be discharged to home (7) GERD (gastroesophageal reflux disease): pantoprazole 40 mg BID (8) Anemia: No signs of active bleeding Last colonoscopy on 06/05/17 showed diverticulosis. Last EGD on 04/10/17 showed reflux esophagitis. Received 1 units PRBC when she was at [facility] for hgb 7.8 Hgb stable above 9 recently and is 10.5 on 08/15/18 Take pantoprazole 40 mg twice a day to prevent bleeding risks from blood thinner medications (9) Dyslipidemia: LDL 154, Chol 255, HDL 55 and trig 231 Take atorvastatin 40 mg daily (10) DVT prophylaxis: Anticoagulated on anticoagulation therapy (11) Discharge planning issues: Discharge Diagnosis Non-ST elevation (NSTEMI) myocardial infarction (Drug-eluting stent implanted to the left circumflex), anticoagulated by anticoagulation treatment, acute on chronic diastolic (congestive heart failure), history of pulmonary embolism, asthma, current chronic use of systemic steroids Discharge to home Take atorvastatin 40 mg daily continue home schedule coumadin 5 mg daily on every Friday/Friday//Friday; and home schedule coumadin 7.5 mg daily on every Friday/Friday/Friday (goal INR levels is between 2 to 3) Take clopidogrel daily for 1 year with the coumadin Take pantoprazole 40 mg twice a day to prevent bleeding risks from blood thinner medications Follow up appointments 08/19/2018 3:30 PM Provider Corky Bee PA-C Department Cardiology [facility] 08/21/2018 1:30 PM Provider CRISTOPHER Santana Department [facility] 08/25/2018 11:45 AM Provider [facility] 08/27/2018 3:10 PM Provider CRISTOPHER Santana Department [facility] 09/10/2018 10:00 AM Provider Caitlyn Lynne Department [facility] 09/10/2018 10:30 AM Provider Jerson Dejesus DPT Department [facility] 09/21/2018 2:00 PM Provider [facility] Subjective Patient not in distress. appears comfortable on the bed. no chest pain currently or back pain. no shortness of breath. no abdominal pain. no vomiting. INR is 2. heparin drip is stopped.Discharge plans discussed at length with patient Physical Exam Vital Signs (Past 24 Hours): Last Vital Signs Temp 36.7 C 08/17/18 06:43 Pulse 66 08/17/18 06:43 Resp 19 08/17/18 06:43 BP 127/78 08/17/18 06:43 Pulse Ox 98 08/17/18 06:43 Constitutional: WD/WN, vitals as above Eyes: PERRL, conjunctivae normal, anicteric sclerae EOM intact bilaterally ENMT: external ear and nose normal, oropharynx normal Respiratory: normal respiratory effort Cardiovascular: Rate/Rhythm: regular rate and regular rhythm Extremities: + edema (mild 1 + edema bilaterally) Gastrointestinal (Abdomen): normal bowel sounds, soft, nontender, no hepatosplenomegaly Musculoskeletal: Head/Neck/Chest: normocephalic and head atraumatic Neurologic: PERRL, EOMI, accommodation nl, no face palsy, no dysarthria CN's II-XI intact bilaterally Psychiatric: A+Ox3, euthymic affect
--- NOTE | 2018-08-17 09:32 | Discharge Summary ---
Date of Service August 17, 2018 Admission HPI Per Admitting Provider 57-year-old female followed by CRISTOPHER Noguera. History of coronary artery disease, pulmonary embolism, severe asthma, and other problems as noted below. Admitted to [facility] on 12/04/[address] Garcia was consulted. Serial troponins were negative. Echocardiogram showed normal left ventricular wall motion and systolic function. Cardiac catheterization was performed by Dr. Arroyo on 12/05/17 and demonstrated moderate nonobstructive coronary artery disease with 40-50% lesion mid RCA and 50-60% lesion mid to distal circumflex. Risk factor modification recommended. Patient experiencing recurrent chest pain for the past few days. She noted midsternal chest burning / heaviness with exertion, such as shopping. Chest pain radiated across her chest, to her neck, and left arm. No SOB, diaphoresis, nausea, vomiting. Symptoms were relieved by one sublingual nitroglycerin 2 days prior to this admission. Yesterday she had more severe symptoms, not relieved by 2 sublingual nitrogl ycerin tablets. She was evaluated in the ED at [facility] and admitted for further evaluation. Dr. Wray was consulted for cardiac evaluation. EKG demonstrated NSR with slight ST depression inferiorly and laterally. Serial troponin T's: [phone] (normal range 0-14 ng/L). Sparks to have non-STEMI. Allergic to aspirin. Treated with clopidogrel, IV heparin, nitrates, statin. She did not receive a beta gwen (probably because of history of severe asthma). Found to be in congestive heart failure. Received IV furosemide with improvement. Echo was ordered, but results not available at the time of this admission. Has history of chronic anemia, requiring occasional transfusion of packed RBCs. Hemoglobin was 7.8. Patient received 1 unit of packed RBCs. Dr. Wray discussed the patient's case with Dr. Arroyo and arrangements were made for transfer to [facility] for further evaluation. Patient was seen in her room around 1920. She felt well. No further chest pain or other cardiac symptoms. Admission Exam Per Admitting Provider Constitutional: WD/WN, vitals as above no acute distress Eyes: PERRL, conjunctivae normal, anicteric sclerae ENMT: external ear and nose normal, oropharynx normal Mouth: + dentures Neck: trachea midline, no thyromegaly Respiratory: normal respiratory effort, lungs clear to auscultation Cardiovascular: Rate/Rhythm: regular rate and regular rhythm Heart Sounds: + murmur (II/ sys murmur at base); no gallop and no cardiac rub Vessels: normal peripheral pulses; no JVD Extremities: normal capillary refill; no calf tenderness and no edema Gastrointestinal (Abdomen): normal bowel sounds, soft, nontender, no hepatosplenomegaly Musculoskeletal: Head/Neck/Chest: neck supple Extremities: strength 5/5 throughout; no cyanosis and no clubbing Skin: no rashes, warm and dry Neurologic: PERRL, EOMI no facial palsy no dysarthria or aphasia patellar DTR's 3/2 bilat Psychiatric: Orientation: alert and oriented x 3 Affect: euthymic affect Lymphatic: no cervical lymphadenopathy Principal Diagnosis Non-ST elevation (NSTEMI) myocardial infarction (Drug-eluting stent implanted to the left circumflex), anticoagulated by anticoagulation treatment, acute on chronic diastolic (congestive heart failure), history of pulmonary embolism, asthma, current chronic use of systemic steroids Discharge Exam Constitutional WD/WN, vitals as above Eyes PERRL, conjunctivae normal, anicteric sclerae EOM intact bilaterally ENMT external ear and nose normal, oropharynx normal Respiratory normal respiratory effort Cardiovascular Rate/Rhythm: regular rate and regular rhythm Extremities: + edema (mild 1 + edema bilaterally) Gastrointestinal (Abdomen) normal bowel sounds, soft, nontender, no hepatosplenomegaly Musculoskeletal Head/Neck/Chest: normocephalic and head atraumatic Neurologic PERRL, EOMI, accommodation nl, no face palsy, no dysarthria CN's II-XI intact bilaterally Psychiatric A+Ox3, euthymic affect Discharge Data Allergies Allergy/AdvReac Type Severity Reaction Status Date / Time aspirin Allergy Intermediate HIVES Verified 06/08/18 08:19 ibuprofen Allergy Intermediate HIVES Verified 06/08/18 08:19 levofloxacin Allergy Intermediate HIVES Verified 06/08/18 08:19 Iodinated Contrast- Oral and Allergy Unknown IV ONLY - Verified 06/08/18 08:19 IV Dye HIVES pregabalin AdvReac Intermediate SEVERE Verified 06/08/18 08:19 DEPRESSION zolpidem AdvReac Intermediate HALLUCINATI Verified 06/08/18 08:19 ONS gabapentin AdvReac Mild GOOFY Verified 06/08/18 08:19 THOUGHTS Consultations 08/11/18 08:00 Consult Cardiology Routine 08/15/18 08:41 Consult Cardiology Routine Procedures Performed Operation Date: 08/11/18 08:00 Actual Procedures p Cath, Left with Cors and Vent - Christopher Arroyo MD s Cineradiography w/Routine Exam - Christopher Arroyo MD s Drug Eluting Stent SGl Vessel - Christopher Arroyo MD Ordered Studies 08/11/18 06:44 CL Cath Imgs for PACS use only Routine Hospital Course (1) Non-ST elevation (NSTEMI) myocardial infarction: Non-ST elevation (NSTEMI) myocardial infarction (Drug-eluting stent implanted to the left circumflex) Present at [facility] with symptoms of chest pain associated with SOB with minimal exertion She was transferred to [facility] for further evaluation Was starting on heparin drip S/p Cardiac cath done today showed: Circumflex -large caliber vessel, mid segment luminal irregularities, 90% acute stenosis in distal circumflex at takeoff of small OM2.. Moderate caliber OM1, left PLB without significant disease. RCA -moderate caliber, dominant vessel, 40% mid segment disease. S/P Successful PCI of distal circumflex with single drug-eluting stent (2.5 x 26 mm Dangelo; postdilated with 2.75 NC). Patient reports history of aspirin allergy that was years ago Has been able to tolerate aspirin while in the hospital and was on clopidogrel, Aspirin cardiology recommended continuing clopidogrel and coumadin when INR is therapeutic for 1 year without aspirin Because patient has history of thromboembolism (history of PE), she was kept inpatient to continue heparin bridge to a therapeutic INR level with the coumadin Continue statin 08/14/18 to 08/15/18: Overnight, patient was unclear whether she was having back pain or chest pain. Nocturnal hospitalist send off serial troponins which was 0.317 with EKG on 08/15/18 as unchanged as compared to that of 08/12/18 with a follow up troponin that nakul to 0.533 in the AM of 08/15/18. Patient seen and examined at bedside. She reported feeling some palpitations when ambulated to bathroom this AM wound 7 AM. Generally no acute telemetry events on monitoring. troponin downtrended to 0.240. as per cardiology service symptoms and troponin levels do not represent acute stent thrombosis Patient completed heparin with bridge to coumadin level of INR of 2 while she was on aspirin and clopidogrel INR on 08/17/18 is 2 and at goal target so heparin drip stopped and patient to be discharged to home Discharge to home Take atorvastatin 40 mg daily continue home schedule coumadin 5 mg daily on every Friday/Friday//Friday; and home schedule coumadin 7.5 mg daily on every Friday/Friday/Friday (goal INR levels is between 2 to 3) Take clopidogrel daily for 1 year with the coumadin (2) CHF (congestive heart failure): Acute on chronic diastolic heart failure in setting of NSTEMI treated and resolved currently appears to be compensated continue home dose Lasix of 40 mg daily (3) Asthma, severe persistent: History of severe asthma Heterozygous alpha-1 antitrypsin deficiency Continue prednisone, and bronchodilators as needed (4) Chronic steroid use: Chronic prednisone therapy for severe asthma; current dose is 20 mg daily. Attempts at weaning to a lower dose have been unsuccessful. (5) Chronic respiratory failure with hypoxia, on home O2 therapy: Continue supplemental oxygen as needed recently has been saturating well on room air (6) History of pulmonary embolism: Because patient has history of thromboembolism (history of PE), will continue heparin bridge to a therapeutic INR level with coumadin patient had received coumadin 5 mg on 08/11/18 and on 08/12/18 received coumadin 7.5 mg on 08/13/18 as INR subtherapeutic received coumadin 10 mg on 08/14/18 as INR is subtherapeutic as 1.2 received coumadin 10 mg on 08/15/18 as INR is subtherapeutic as 1.4 INR on 08/16/18 is 1.7 which is near goal of INR 2 to 3 and will resume patient's home dose coumadin which is coumadin 5 mg daily on every Friday/Friday//Friday and coumadin 7.5 mg daily on every Friday/Friday/Friday, so patient will get coumadin 5 mg on 08/16/18 with the heparin drip to avoid supratherapeutic INR INR on 08/17/18 is 2 and at goal target so heparin drip stopped and patient to be discharged to home (7) GERD (gastroesophageal reflux disease): pantoprazole 40 mg BID (8) Anemia: No signs of active bleeding Last colonoscopy on 06/05/17 showed diverticulosis. Last EGD on 04/10/17 showed reflux esophagitis. Received 1 units PRBC when she was at [facility] for hgb 7.8 Hgb stable above 9 recently and is 10.5 on 08/15/18 Take pantoprazole 40 mg twice a day to prevent bleeding risks from blood thinner medications (9) Dyslipidemia: LDL 154, Chol 255, HDL 55 and trig 231 Take atorvastatin 40 mg daily (10) DVT prophylaxis: Anticoagulated on anticoagulation therapy (11) Discharge planning issues: Discharge Diagnosis Non-ST elevation (NSTEMI) myocardial infarction (Drug-eluting stent implanted to the left circumflex), anticoagulated by anticoagulation treatment, acute on chronic diastolic (congestive heart failure), history of pulmonary embolism, asthma, current chronic use of systemic steroids Discharge to home Take atorvastatin 40 mg daily continue home schedule coumadin 5 mg daily on every Friday/Friday//Friday; and home schedule coumadin 7.5 mg daily on every Friday/Friday/Friday (goal INR levels is between 2 to 3) Take clopidogrel daily for 1 year with the coumadin Take pantoprazole 40 mg twice a day to prevent bleeding risks from blood thinner medications Follow up appointments 08/19/2018 3:30 PM Provider Corky Bee PA-C Department Cardiology [facility] 08/21/2018 1:30 PM Provider CRISTOPHER Santana Department [facility] 08/25/2018 11:45 AM [facility] 08/27/2018 3:10 PM Provider CRISTOPHER Santana Department [facility] 09/10/2018 10:00 AM Provider Caitlyn Lynne Department [facility] 09/10/2018 10:30 AM Provider Jerson Dejesus DPT Department [facility] 09/21/2018 2:00 PM Provider [facility] Total Time Total Time Spent Total Time Spent (In Minutes): 40 minutes Total Time Includes: Examination of the Patient and Discharge Planning Discharge Plan Discharge Items Patient Disposition: Home - Self-Care Reason For Visit: UNSTABLE ANGINA Discharge Diagnosis: Non-ST elevation (NSTEMI) myocardial infarction (Drug- eluting stent implanted to the left circumflex), anticoagulated by anticoagulation treatment, acute on chronic diastolic (congestive heart failure), history of pulmonary embolism, asthma, current chronic use of systemic steroids Condition: Good Discharge Goals: Improve disease control Activity: Resume your previous activity Non-emergency contact: Primary Care Provider and Spinning [employer] Changer Call non-emergency contact if: you have any medication questions Follow-up/Referrals: Petra Kelly C.R.N.PLetty [Primary Care Provider] - Diet: Heart Healthy Add Provider Instructions: Discharge to home Take atorvastatin 40 mg daily continue home schedule coumadin 5 mg daily on every Friday/Friday//Friday; and home schedule coumadin 7.5 mg daily on every Friday/Friday/Friday (goal INR levels is between 2 to 3) Take clopidogrel daily for 1 year with the coumadin Take pantoprazole 40 mg twice a day to prevent bleeding risks from blood thinner medications Follow up appointments 08/19/2018 3:30 PM Provider Corky Bee PA-C Department Cardiology [facility] 08/21/2018 1:30 PM Provider CRISTOPHER Santana Department [facility] 08/25/2018 11:[address] [facility] 08/27/2018 3:10 PM Provider CRISTOPHER Santana Department [facility] 09/10/2018 10:00 AM Provider Caitlyn Lynne Department [facility] 09/10/2018 10:30 AM Provider Jerson Dejesus DPT Department [facility] 09/21/2018 2:00 PM Provider [facility] Pres[facility]: New atorvastatin 40 mg Tablet 40 mg PO QAM 30 Days Qty: 30 RF: 0 warfarin [Coumadin] 7.5 mg Tablet 7.5 mg PO [id number]@1600 30 Days Qty: 30 RF: 0 clopidogrel 75 mg Tablet 75 mg PO QAM 30 Days Qty: 30 RF: 0 pantoprazole 40 mg Tablet,Delayed Release (Dr/Ec) 40 mg PO BID 30 Days Qty: 60 RF: 0 warfarin [Coumadin] 5 mg Tablet 5 mg PO [id number]@1600 30 Days Qty: 30 RF: 0 Continued furosemide [Lasix] 40 mg Tablet 40 mg PO DAILY RF: 0 potassium chloride 10 mEq Capsule, Extended Release 10 meq PO BID RF: 0 citalopram [Celexa] 40 mg Tablet 40 mg PO QAM RF: 0 polyethylene glycol 3350 [Miralax] 17 gram Powder In Packet 17 g PO UD PRN (Reason: Constipation) RF: 0 docusate sodium [Colace] 100 mg Capsule 200 mg PO HS RF: 0 epinephrine [EpiPen] 0.3 mg/0.3 mL Auto-Injector 0.3 mg IM UD PRN (Reason: Allergic Reaction) RF: 0 albuterol sulfate [Ventolin HFA] 90 mcg/actuation Hfa Aerosol Inhaler 2 puff INHALATION Q4H PRN (Reason: Shortness Of Breath Or Wheezing) RF: 0 Prilosec OTC 20 mg Tablet,Delayed Release (Dr/Ec) 20 mg PO BID RF: 0 cholecalciferol (vitamin D3) 2,000 unit Capsule 2,000 unit PO DAILY RF: 0 cyanocobalamin (vitamin B-12) 1,000 mcg Capsule 1,000 mcg PO QAM RF: 0 nitroglycerin [Nitrostat] 0.4 mg Tablet, Sublingual 1 tab Sublingual UD PRN (Reason: Chest Pain) RF: 0 prednisone 20 mg Tablet 20 mg PO QAM Qty: 0 RF: 0 ipratropium-albuterol 0.5 mg-3 mg(2.5 mg base)/3 mL Solution For Nebulization 3 ml INHALATION QID PRN (Reason: Wheezing) RF: 0 Discontinued warfarin 5 mg Tablet 5 mg PO UD RF: 0 Stand-Alone Forms: [facility] Discharge Orders: Discharge Order (Routine); Ordered 08/17/18 Ordered By: Waldemar Jeffery Admission Data Admit Date/Time: 08/10/18 18:49 Attending Provider: Waldemar Jeffery Admit Provider: Benny Morrison Primary Care Provider: Petra Kelly Other Providers: Christopher Arroyo ; Leo Caicedo Service: Telemetry
[2018-08-17] MEDS ORDERED: WARFARIN SOD 5 MG TAB PO SCH (16:00)
[2018-08-17] MEDS ORDERED: WARFARIN SOD 7.5 MG TAB PO SCH (16:00)
== END 2018-08-17 13:40 | disposition home health service (06) ==
LOC: SUATTDRO 18:49 → 2S 18:49

== ENCOUNTER 2019-02-23 15:57 | Inpatient (IN) ==
[2019-02-23] MEDS ORDERED: MAGNESIUM SULFATE / D5W 1 GM/100 ML BAG IV ONE (17:28)
[2019-02-23] MEDS ORDERED: methylPREDNISolone 125 MG/2 ML VIAL IV STA (17:28)
[2019-02-23] MEDS ORDERED: ALBUT/IPRATROP 3MG/0.5MG NEB 3 ML VIAL INH STA (17:28)
[2019-02-23] MEDS ORDERED: SODIUM CHLORIDE 0.9% 500 ML IV SCH (17:30)
[2019-02-23 18:05] LABS: Basophils # (auto) 0.05 K/uL (0-0.2); Basophils % (auto) 0.5 %; Eosinophils # (auto) 0.18 K/uL (0-0.5); Eosinophils % (auto) 1.6 %; Hematocrit (blood only) 32.2 % (37-47); Hemoglobin 9.4 g/dL (12.0-16.0); Immature Granulocytes # (auto) 0.08 K/uL (0.00-0.02); Immature Granulocytes % (auto) 0.7 %; Lymphocytes # (auto) 2.24 K/uL (1.2-3.4); Lymphocytes % (auto) 20.5 %; Mean Corpuscular Hemoglobin 21.7 pg (25-34); Mean Corpuscular Hgb Conc 29.2 g/dL (32-36); Mean Corpuscular Volume 74.2 fL (80-100); Mean Platelet Volume 10.2 fL (7.4-10.4); Monocytes # (auto) 0.83 K/uL (0.11-0.59); Monocytes % (auto) 7.6 %; Neutrophils # (auto) 7.55 K/uL (1.4-6.5); Neutrophils % (auto) 69.1 %; Platelet Count 274 K/uL (130-400); RDW Coefficient of Variation 19.8 % (11.5-14.5); RDW Standard Deviation 53.8 fL (36.4-46.3); Red Blood Count 4.34 M/uL (4.2-5.4); White Blood Count 10.93 K/uL (4.8-10.8)
--- NOTE | 2019-02-23 18:06 | XRay Report ---
XR chest 1V portable HISTORY: 58 years-old Female Dyspnea acute shortness of breath COMPARISON: Chest radiograph 08/11/2018 TECHNIQUE: Portable AP view of the chest FINDINGS: Left subclavian Svgter-p-Anpz catheter appears unchanged. Cardiac silhouette is mildly enlarged, stab le. Chronic right hemidiaphragmatic elevation. Unchanged patchy left basilar opacities without pneumo thorax, pleural effusion or overt pulmonary edema. Chronic blunting of the costophrenic angles. Degen erative changes of the shoulders and spine. Remote compression deformity with kyphoplasty changes abo ut a lower thoracic segment. IMPRESSION: 1. Unchanged patchy left basilar opacities suggestive of atelectasis. A superimposed pneumonitis woul d be difficult to exclude. 2. Chronic right hemidiaphragmatic elevation. 3. Mild cardiomegaly. The above report was generated using voice recognition software. It may contain grammatical, syntax o r spelling errors. Electronically signed by: Raudel Javed M.D. 02/23/2019 6:05 PM
[2019-02-23 18:11] LABS: Base Excess VBG 6.6 mEq/L; Oxygen Saturation VBG 64.8 %; pH VBG 7.45 (7.36-7.41)
[2019-02-23 18:20] LABS: Alanine Aminotransferase 18 U/L (12-78); Albumin Level 3.3 gm/dl (3.4-5.0); Aspartate Aminotransferase 12 U/L (15-37); BUN Creatinine Ratio 14.4 (10-20); Blood Urea Nitrogen 12 mg/dl (7-18); Carbon Dioxide 29 mmol/L (21-32); Chloride 105 mmol/L (98-107); Creatinine Clr Calc Pharmacy 81.1 ml/min; Est GFR (African American) 93.5; Est GFR (Non-African American) 80.7; Glucose 90 mg/dl (70-99); Potassium 3.4 mmol/L (3.5-5.1); Sodium 140 mmol/L (136-145)
[2019-02-23] MEDS ORDERED: ACETAMINOPHEN 325 MG TAB PO STA (18:20)
[2019-02-23] MEDS ORDERED: MoRPHine SULFATE 4 MG/ML 1 ML CARP\\VIAL IV STA (18:20)
[2019-02-23 18:25] LABS: Albumin Globulin Ratio 0.9 (0.9-2); Alkaline Phosphatase 57 U/L (45-117); Bilirubin,Total 0.2 mg/dl (0.2-1); Globulin 3.7 gm/dl (2.5-4.0); Troponin I < 0.015 ng/ml (0-0.045)
[2019-02-23 18:31] LABS: INR 2.3 (0.9-1.1); Partial Thromboplastin Ratio 2.4; Prothrombin Time 22.5 Seconds (9.0-12.0)
[2019-02-23 18:36] LABS: Hypochromasia Present; Ovalocytes 1+; Polychromasia 1+
[2019-02-23 19:42] LABS: Partial Thromboplastin Time 66.1 Seconds (21.0-31.0)
[2019-02-23] MEDS ORDERED: ALBUT/IPRATROP 3MG/0.5MG NEB 3 ML VIAL NEB STA (20:00)
[2019-02-23] MEDS ORDERED: POTASSIUM CHLORIDE 20 MEQ TABCR PO STA (20:45)
[2019-02-23 21:06] LABS: Base Excess ABG 4.2 mEq/L (-9-1.8); HCO3 ABG 28 mmol/L (19-24); Oxygen Saturation ABG 95.4 % (90-95); PCO2 ABG 41 mmHg (35-46); PO2 ABG 82 mm/Hg (80-95); pH ABG 7.46 (7.35-7.45)
--- NOTE | 2019-02-23 21:15 | Emergency Department Note ---
Entered by Bonnie Jay acting as a scribe for Jem Ornelas MD History of Present Illness General Chief complaint: Shortness of Breath/Dyspnea Stated complaint: sob, chest tightness Time Seen by Provider: 02/23/19 17:00 Source: patient Limitations: no limitations History of Present Illness Onset (ago): day(s) (a few) Location: chest Pain Consistency: + other (worsening ) Maximum Pain Intensity: 8 Quality: + other (SOB) Relieved By: + none Associated symptoms: + denies other symptoms (lower extremity swelling), + chest pain, + cough and + other (sore throat) The patient is a 58 white female w/ PMHx CHF, NSTEMI, GERD, PE, DVT, CAD, and asthma who presents to the ED w/ CC of worsening SOB beginning a few weeks ago. She states that she saw Semaj Birch 4 days ago, and he was concerned that something was obstructing her diaphragm. She describes the symptoms as "tight" feeling in her chest, noting that it "feels swollen." The patient notes that sitting up exacerbates the pain. She complains of a cough and sore throat. The patient complains of severe chest pain and fatigue. She denies any lower extre mity swelling. The patient notes that she has been taking steroids and nebulizer treatments, but neither has provided any relief. She notes that she got an iron infusion yesterday. The patient denies the use of any tobacco products. Home Medications Home Medications Medication Instructions Recorded Confirmed Type albuterol sulfate [Ventolin HFA] 2 puff INHALATION Q4H PRN 03/03/18 02/23/19 History cyanocobalamin (vitamin B-12) 1,000 mcg PO QAM 03/03/18 02/23/19 History docusate sodium [Colace] 200 mg PO HS 03/03/18 02/23/19 History epinephrine [EpiPen] 0.3 mg IM DIRECTED PRN 03/03/18 02/23/19 History furosemide [Lasix] 40 mg PO QAM 03/03/18 02/23/19 History nitroglycerin [Nitrostat] 0.4 mg SUBLINGUAL DIRECTED PRN 03/03/18 02/23/19 History polyethylene glycol 3350 [Miralax] 17 g PO DAILY PRN 03/03/18 02/23/19 History ipratropium-albuterol 3 ml INHALATION QID PRN 08/10/18 02/23/19 History immune glob,gamm(IgG) 10 %-pro-IgA 10 gm IV .COMPLEX ml 01/05/19 02/23/19 History 0 to 50 mcg/mL intravenous solution warfarin 5 mg tablet 5 mg PO 4XWK tab 01/05/19 02/23/19 History clopidogrel 75 mg tablet 75 mg PO QAM 01/06/19 02/23/19 History escitalopram 10 mg tablet 10 mg PO QAM 01/06/19 02/23/19 History amoxicillin 875 mg-potassium 1 tab PO Q12H #20 tab 02/19/19 02/23/19 Rx clavulanate 125 mg tablet cholecalciferol (vitamin D3) 1,000 unit PO BID 02/23/19 02/23/19 History pantoprazole 40 mg PO BID 02/23/19 02/23/19 History prednisone 10 mg PO DAILY 02/23/19 02/23/19 History warfarin 7.5 mg PO 3XWK 02/23/19 02/23/19 History Allergies Allergy/AdvReac Type Severity Reaction Status Date / Time aspirin Allergy Intermediate HIVES Verified 02/23/19 17:43 ibuprofen Allergy Intermediate HIVES Verified 02/23/19 17:43 levofloxacin Allergy Intermediate HIVES Verified 02/23/19 17:43 Iodinated Contrast Media Allergy Unknown IV ONLY - Verified 02/23/19 17:43 HIVES pregabalin AdvReac Intermediate SEVERE Verified 02/23/19 17:43 DEPRESSION zolpidem AdvReac Intermediate HALLUCINATI Verified 02/23/19 17:43 ONS gabapentin AdvReac Mild GOOFY Verified 02/23/19 17:43 THOUGHTS Past Med/Surg History Medical History Adrenal insufficiency (Chronic) Hypogammaglobulinemia (Chronic) Chronic respiratory failure with hypoxia, on home O2 therapy (Chronic) Anemia (Chronic) GERD (gastroesophageal reflux disease) (Chronic) Chronic steroid use (Chronic) for severe asthma Heterozygous alpha 1-antitrypsin deficiency (Chronic) Dyslipidemia (Chronic) History of pulmonary embolism (Chronic) CAD (coronary artery disease) (Chronic) Nonobstructive by cardiac cath 11/2017 Asthma, severe persistent (Chronic) 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 Follows with pulm. On chronic steroids Prednisone 20mg and albuterol prn. Has not used albuterol since last hospital admission 03/2018. Chronic back pain Chronic respiratory failure with hypoxia RESPIRATORY ISSUES FROM ASTHMA ATTACK 5 YRS AGO/DEBBIWN. WAS ADMITTED FOR BOWEL PERF 2/2 DIVERTICULITIS AND ACUTE ASTHMA EXAC...POST OP ICU ON VENT X 24HRS. Depression Disp fx of distal pole of navicular bone of left wrist w/routine heal Dyslipidemia Fracture of thoracic spine at T7-T12 level with spinal cord injury GERD (gastroesophageal reflux disease) H/O adrenal insufficiency History of colonic diverticulitis History of pulmonary embolism 03/2015 post-op, then again spontaneously 02/2018. On Coumadin. Hypogammaglobulinemia Immunoglobulin deficiency Microscopic hematuria chronic problem Osteoporosis Seizure WORK UPS DONE FOR DX OF SEIZURES..PT REPORTS DR CASAS REPORTED THAT SEIZURES SHOULD NOT BE IN PT HX/SYMPTOMS PRIOR TO WORK UP STUDIES: STANDING UP TO QUICK AFTER SITTING FOR AN HOUR WILL GET WHOOZY FEELING, DOES NOT PASS OUT ...IF SITS BACK DOWN IS FINE Sleep apnea With hypoxemia. Using CPAP with O2 HS Steroid-induced osteoporosis Surgical History Status post hernia repair (Chronic) Status post appendectomy (Chronic) Status post cholecystectomy (Chronic) Status post partial colectomy (Chronic) Status post kyphoplasty (Chronic) History of colectomy (Chronic) COLOSTOMY AND REVERSAL History of colonoscopy (Chronic) History of cardiac catheterization (Chronic) 2017...CHEST TIGHTNESS.ABNORMAL STRESS...[facility]BLOCKAGES 50 % 60% - NO STENT(S) FEW YEARS AGO...CHEST DISCOMFORT...[place]...NO FINDINGS Status post wrist surgery (Chronic) For fracture repair L wrist 03/2018 H/O dilation and curettage H/O exploratory laparotomy Organ biopsies for suspected Hodgkins lymphoma, long time ago H/O right knee surgery H/O sinus surgery H/O: hysterectomy History of appendectomy History of bronchoscopy "for mucous plugs" History of carpal tunnel surgery S/P herniorrhaphy Status post hernia repair Status post partial colectomy Family History Mother Hypertension Father Coronary heart disease Social History Preferred Language: Tajik Communication Ability: Effective Visual Impairment: No Limitations Hearing Ability: Normal Thumb Sewer Required: No Beliefs That Will Affect Care: None marital status: Current Living Situation: Spouse current occupational status: disabled Feels Safe at Home: Yes Smoking Status: Former smoker Tobacco Type: cigarettes ; Cigarettes Per Day: 20 ; Second Hand Exposure: No ; Hx Alcohol Use: No Hx Substance Use: No Review of Systems See HPI for pertinent positives & negatives. and A total of 10 systems reviewed and were otherwise negative Physical Exam Vital Signs Vital Signs - 24 hr 02/23/19 16:13 02/23/19 17:00 02/23/19 17:37 Temperature 36.9 C Temperature Source Oral Sepsis Recent Fever Within 48 Hours No Sepsis New/Unexplained Change in Mental Status No Sepsis Action Taken by Nursing No Action Required Oxygen Flow Rate - Titration Pulse Oximetry Post Tiitration Pulse Rate 73 59 L Pulse Rate [Right Finger] Pulse Rate from SpO2 Sensor Pulse Rhythm Regular Pulse Strength Normal Respiratory Rate 22 25 H Respiratory Effort / Characteristics Non-Labored Spontaneous Respiratory Depth Normal Respiratory Pattern Regular Blood Pressure 146/97 H 158/77 H Blood Pressure Mean 113 104 Blood Pressure Position Sitting Pulse Oximetry 95 96 96 Oxygen Delivery Method Room Air Room Air Oxygen Flow Rate 02/23/19 17:56 02/23/19 18:00 02/23/19 18:30 Temperature Temperature Source Sepsis Recent Fever Within 48 Hours Sepsis New/Unexplained Change in Mental Status Sepsis Action Taken by Nursing Oxygen Flow Rate - Titration Pulse Oximetry Post Tiitration Pulse Rate 63 62 Pulse Rate [Right Finger] 60 Pulse Rate from SpO2 Sensor 60 64 Pulse Rhythm Pulse Strength Respiratory Rate 17 14 Respiratory Effort / Characteristics Non-Labored Spontaneous Respiratory Depth Respiratory Pattern Blood Pressure 155/91 H 155/74 H Blood Pressure Mean 112 101 Blood Pressure Position Pulse Oximetry 96 95 96 Oxygen Delivery Method Room Air Room Air Oxygen Flow Rate 02/23/19 18:57 02/23/19 19:00 02/23/19 19:30 Temperature Temperature Source Sepsis Recent Fever Within 48 Hours Sepsis New/Unexplained Change in Mental Status Sepsis Action Taken by Nursing Oxygen Flow Rate - Titration 2 Pulse Oximetry Post Tiitration 96 Pulse Rate 59 L 68 Pulse Rate [Right Finger] Pulse Rate from SpO2 Sensor 58 L 68 Pulse Rhythm Pulse Strength Respiratory Rate 13 21 Respiratory Effort / Characteristics Respiratory Depth Respiratory Pattern Blood Pressure 137/75 149/73 H Blood Pressure Mean 95 98 Blood Pressure Position Pulse Oximetry 85 L 98 97 Oxygen Delivery Method Room Air Nasal Cannula Nasal Cannula Oxygen Flow Rate 2 02/23/19 20:00 02/23/19 20:13 02/23/19 20:30 Temperature Temperature Source Sepsis Recent Fever Within 48 Hours Sepsis New/Unexplained Change in Mental Status Sepsis Action Taken by Nursing Oxygen Flow Rate - Titration Pulse Oximetry Post Tiitration Pulse Rate 60 77 Pulse Rate [Right Finger] 66 Pulse Rate from SpO2 Sensor 60 74 Pulse Rhythm Pulse Strength Respiratory Rate 16 16 14 Respiratory Effort / Characteristics Non-Labored Respiratory Depth Respiratory Pattern Blood Pressure 150/83 H 142/83 H Blood Pressure Mean 105 102 Blood Pressure Position Pulse Oximetry 96 98 100 Oxygen Delivery Method Nasal Cannula Oxygen Flow Rate 2 02/23/19 21:00 Temperature Temperature Source Sepsis Recent Fever Within 48 Hours Sepsis New/Unexplained Change in Mental Status Sepsis Action Taken by Nursing Oxygen Flow Rate - Titration Pulse Oximetry Post Tiitration Pulse Rate 83 Pulse Rate [Right Finger] Pulse Rate from SpO2 Sensor 83 Pulse Rhythm Pulse Strength Respiratory Rate 13 Respiratory Effort / Characteristics Respiratory Depth Respiratory Pattern Blood Pressure 154/80 H Blood Pressure Mean 104 Blood Pressure Position Pulse Oximetry 98 Oxygen Delivery Method Oxygen Flow Rate GENERAL: Well appearing, well nourished, NAD, non-toxic. Wearing glasses. EYE EXAM: Normal conjunctiva. PERRL, no anisocoria and EOM's grossly intact w/o pain. OROPHARYNX: Moist mucous membranes. Grossly normal dentition. NECK: Supple, no nuchal rigidity, no adenopathy, non-tender. No signs of meningismus. LUNGS: Scant wheezes, no tachypnea, prolonged expiratory phase HEART: NSR, no MRG. ABDOMEN: Abdomen soft, non-tender, normo-active bowel sounds, no masses, no rebound or guarding. BACK: No CVA TTP. SKIN: No rashes and no bruising. UPPER EXTREMITIES: Upper extremities are grossly normal. LOWER EXTREMITIES: No pitting edema. No calf pain. Negative Oziel's sign. NEURO EXAM: A&O x3, cranial nerves II-XII grossly intact, normal speech, moves all 4 extremities on command w/o issue. Course 0: The patient was evaluated in room B04B. A complete history and physical exam was performed. 1857: I reevaluated the patient. She stated that she only felt slightly improved. 1946: Respiratory called and stated that the patient had a peak flow of 80 L/m in, and she should be able to do 200 L/min. 2006: [facility]. He will further evaluate the patient. Administered Medications Discontinued Medications Acetaminophen (Tylenol) 650 mg PO NOW STA Stop: 02/23/19 18:21 Last Admin: 02/23/19 18:35 Dose: 650 mg Documented by: [id number] Albuterol (Duoneb) 6 ml INH NOW STA Stop: 02/23/19 17:29 Last Admin: 02/23/19 17:59 Dose: 6 ml Documented by: [id number] Albuterol (Duoneb) 6 ml NEB NOW STA Stop: 02/23/19 20:01 Last Admin: 02/23/19 20:13 Dose: 6 ml Documented by: [id number] Sodium Chloride (Nss) 500 mls @ 999 mls/hr IV .Q31M DESI Stop: 02/23/19 18:00 Last Infusion: 02/23/19 19:35 Dose: 0 mls/hr Documented by: [id number] Admin: 02/23/19 18:34 Dose: 999 mls/hr Documented by: [id number] Magnesium Sulfate/Dextrose (Magnesium Sulfate / D5w) 1 gm in 100 mls @ 100 mls/hr IV ONE ONE Stop: 02/23/19 18:27 Last Infusion: 02/23/19 19:35 Dose: 0 mls/hr Documented by: [id number] Admin: 02/23/19 18:34 Dose: 100 mls/hr Documented by: [id number] Methylprednisolone (Solumedrol) 60 mg IV NOW STA Stop: 02/23/19 17:29 Last Admin: 02/23/19 18:34 Dose: 60 mg Documented by: [id number] Morphine Sulfate (Morphine Sulfate) 4 mg IV NOW STA Stop: 02/23/19 18:21 Last Admin: 02/23/19 18:34 Dose: 4 mg Documented by: [id number] Potassium Chloride (Klor-Con M20) 40 meq PO NOW STA Stop: 02/23/19 20:46 Last Admin: 02/23/19 21:06 Dose: 40 meq Documented by: [id number] Medical Decision Making Differential Diagnosis Etiologies such as infections, reactive airway disease, COPD, pneumonia, pleural effusion, pulmonary edema, ARDS, pneumothorax, CHF, cardiac ischemia, cardiac tamponade, dysrhythmia, anemia, pulmonary embolism, musculoskeletal, gastrointestinal process, as well as others were entertained. Medical Records Attestation: I reviewed the patient's medical records. Home Medications Current Medication List: was personally reviewed by me Laboratory Data Attestation: I reviewed the patient's lab results. Result diagrams: 02/23/19 17:52 02/23/19 17:52 Lab Results 02/23/19 02/23/19 02/23/19 Range/Units 17:51 17:52 17:52 WBC 10.93 H (4.8-10.8) K/uL RBC 4.34 (4.2-5.4) M/uL Hgb 9.4 L (12.0-16.0) g/dL Hct 32.2 L (37-47) % MCV 74.2 L (80-100) fL MCH 21.7 L (25-34) pg MCHC 29.2 L (32-36) g/dL RDW Std Deviation 53.8 H (36.4-46.3) fL RDW Coeff of Aman 19.8 H (11.5-14.5) % Plt Count 274 (130-400) K/uL MPV 10.2 (7.4-10.4) fL Immature Gran % (Auto) 0.7 % Neut % (Auto) 69.1 % Lymph % (Auto) 20.5 % [place] % (Auto) 7.6 % Eos % (Auto) 1.6 % Baso % (Auto) 0.5 % Immature Gran # (Auto) 0.08 H (0.00-0.02) K/uL Neut # (Auto) 7.55 H (1.4-6.5) K/uL Lymph # (Auto) 2.24 (1.2-3.4) K/uL [place] # (Auto) 0.83 H (0.11-0.59) K/uL Eos # (Auto) 0.18 (0-0.5) K/uL Baso # (Auto) 0.05 (0-0.2) K/uL Polychromasia 1+ Hypochromasia Present Ovalocytes 1+ PT 22.5 H (9.0-12.0) Seconds INR 2.3 H (0.9-1.1) APTT 66.1 H* (21.0-31.0) Seconds PTT Ratio 2.4 ABG pH (7.35-7.45) ABG pCO2 (35-46) mmHg ABG pO2 (80-95) mm/Hg ABG HCO3 (19-24) mmol/L ABG O2 Saturation (90-95) % ABG Base Excess (-9-1.8) mEq/L Herrera Test (Pos) VBG pH (7.36-7.41) VBG pCO2 (38-50) mmHg VBG pO2 mmHg VBG HCO3 mmol/L VBG O2 Saturation % VBG Base Excess mEq/L Barometric Pressure mm/Hg Oxygen Given Sodium 140 (136-145) mmol/L Potassium 3.4 L (3.5-5.1) mmol/L Chloride 105 (98-107) mmol/L Carbon Dioxide 29 (21-32) mmol/L Anion Gap 6.0 (3-11) BUN 12 (7-18) mg/dl Creatinine 0.80 (0.6-1.2) mg/dl Est Cr Clr Drug Dosing 81.1 ml/min Est GFR ( Amer) 93.5 Est GFR (Non-Af Amer) 80.7 BUN/Creatinine Ratio 14.4 (10-20) Glucose 90 (70-99) mg/dl Calcium 9.0 (8.5-10.1) mg/dl Magnesium 2.0 (1.8-2.4) mg/dl Total Bilirubin 0.2 (0.2-1) mg/dl AST 12 L (15-37) U/L ALT 18 (12-78) U/L Alkaline Phosphatase 57 (45-117) U/L Troponin I < 0.015 (0-0.045) ng/ml Total Protein 7.0 (6.4-8.2) gm/dl Albumin 3.3 L (3.4-5.0) gm/dl Globulin 3.7 (2.5-4.0) gm/dl Albumin/Globulin Ratio 0.9 (0.9-2) 02/23/19 02/23/19 Range/Units 17:52 20:53 WBC (4.8-10.8) K/uL RBC (4.2-5.4) M/uL Hgb (12.0-16.0) g/dL Hct (37-47) % MCV (80-100) fL MCH (25-34) pg MCHC (32-36) g/dL RDW Std Deviation (36.4-46.3) fL RDW Coeff of Aman (11.5-14.5) % Plt Count (130-400) K/uL MPV (7.4-10.4) fL Immature Gran % (Auto) % Neut % (Auto) % Lymph % (Auto) % [place] % (Auto) % Eos % (Auto) % Baso % (Auto) % Immature Gran # (Auto) (0.00-0.02) K/uL Neut # (Auto) (1.4-6.5) K/uL Lymph # (Auto) (1.2-3.4) K/uL [place] # (Auto) (0.11-0.59) K/uL Eos # (Auto) (0-0.5) K/uL Baso # (Auto) (0-0.2) K/uL Polychromasia Hypochromasia Ovalocytes PT (9.0-12.0) Seconds INR (0.9-1.1) APTT (21.0-31.0) Seconds PTT Ratio ABG pH 7.46 H (7.35-7.45) ABG pCO2 41 (35-46) mmHg ABG pO2 82 (80-95) mm/Hg ABG HCO3 28 H (19-24) mmol/L ABG O2 Saturation 95.4 H (90-95) % ABG Base Excess 4.2 H (-9-1.8) mEq/L Herrera Test Pos (Pos) VBG pH 7.45 H (7.36-7.41) VBG pCO2 47 (38-50) mmHg VBG pO2 34 mmHg VBG HCO3 31 mmol/L VBG O2 Saturation 64.8 % VBG Base Excess 6.6 mEq/L Barometric Pressure 732.2 731.7 mm/Hg Oxygen Given 2 LITERS Sodium (136-145) mmol/L Potassium (3.5-5.1) mmol/L Chloride (98-107) mmol/L Carbon Dioxide (21-32) mmol/L Anion Gap (3-11) BUN (7-18) mg/dl Creatinine (0.6-1.2) mg/dl Est Cr Clr Drug Dosing ml/min Est GFR ( Amer) Est GFR (Non-Af Amer) BUN/Creatinine Ratio (10-20) Glucose (70-99) mg/dl Calcium (8.5-10.1) mg/dl Magnesium (1.8-2.4) mg/dl Total Bilirubin (0.2-1) mg/dl AST (15-37) U/L ALT (12-78) U/L Alkaline Phosphatase (45-117) U/L Troponin I (0-0.045) ng/ml Total Protein (6.4-8.2) gm/dl Albumin (3.4-5.0) gm/dl Globulin (2.5-4.0) gm/dl Albumin/Globulin Ratio (0.9-2) Imaging Data Radiologist's Impression: Radiology results as stated below per my review and the radiologist's interpretation: XR chest 1V portable HISTORY: 58 years-old Female Dyspnea acute shortness of breath COMPARISON: Chest radiograph 08/11/2018 TECHNIQUE: Portable AP view of the chest FINDINGS: Left subclavian Zhitrj-[id number]-Yidm catheter appears unchanged. Cardiac silhouette is mildly enlarged, stable. Chronic right hemidiaphragmatic elevation. Unchanged patchy left basilar opacities without pneumothorax, pleural effusion or overt pulmonary edema. Chronic blunting of the costophrenic angles. Degenerative changes of the shoulders and spine. Remote compression deformity with kyphoplasty changes about a lower thoracic segment. IMPRESSION: 1. Unchanged patchy left basilar opacities suggestive of atelectasis. A superimposed pneumonitis would be difficult to exclude. 2. Chronic right hemidiaphragmatic elevation. 3. Mild cardiomegaly. The above report was generated using voice recognition software. It may contain grammatical, syntax or spelling errors. Electronically signed by: Raudel Javed M.D. 02/23/2019 6:05 PM ECG Data Attestation: I personally reviewed and interpreted this ECG as follows: Indication: SOB/dyspnea Rate (beats per minute): 58 Rhythm: sinus bradycardia Findings: + other (normal intervals and axis); no acute ischemic change Blood Pressure Blood Pressure Findings: Elevated blood pressure Blood Pressure Disposition: further management by hospitalist ESTUARDO Narrative The patient is a 58 white female w/ PMHx CHF, NSTEMI, GERD, PE, DVT, CAD, and asthma who presents to the ED w/ CC of worsening SOB beginning a few weeks ago. Patient was seen and evaluated the bedside. The patient was complaining some w orsening shortness of breath. The patient does have a history of an STEMI and asthma. The patient has complained of some persistent difficulty with taking a deep inspiration. The patient states she was seen by her drafter refrigeration to [facility] and they were concerned about diaphragmatic issues. The patient did a blood work completed along with a chest x-ray. The patient was given magnesium steroids IV fluids and nebulizer treatments. The patient is currently anti- coagulated on Coumadin. Patient blood work showed chronic but stable anemia. The patient's INR was 2.3 and therapeutic. The patient's VBG did not show any evidence of CO2 retention. Potassium was slightly low. Patient's troponin is not detectable. The patient's EKG does not appear ischemic. I did have respiratory perform a peak flow. The patient's peak flow was 80 L/min which per respiratory was probably 40% of with the patient should be able to do given the patient's age and size. Given this I did speak the on-call hospitalist agreed to further evaluate treat the patient. Patient was admitted to the medicine service. Impression & Plan Asthma exacerbation, Abnormally low peak expiratory flow rate, SOB (shortness of breath), Acute hypokalemia Discharge Plan Visit Data Chief Complaint: Shortness of Breath/Dyspnea Stated Complaint: sob, chest tightness ED Provider: Jem Ornelas Discharge Problem: Asthma exacerbation, Abnormally low peak expiratory flow rate, SOB (shortness of breath), Acute hypokalemia Patient Disposition: Being Evaluated by Hospitalist Forms Stand Alone Forms: My [facility] Prescriptions Prescriptions: No Action Privigen 10 % solution 10 gm IV .COMPLEX RF: 0 warfarin 5 mg tablet 5 mg PO 4XWK RF: 0 clopidogrel [Plavix] 75 mg tablet 75 mg PO QAM RF: 0 escitalopram oxalate 10 mg tablet 10 mg PO QAM RF: 0 amoxicillin-pot clavulanate [Augmentin] 875-125 mg tablet 1 tab PO Q12H Qty: 20 RF: 0 furosemide [Lasix] 40 mg Tablet 40 mg PO QAM RF: 0 polyethylene glycol 3350 [Miralax] 17 gram Powder In Packet 17 g PO DAILY PRN (Reason: Constipation) RF: 0 docusate sodium [Colace] 100 mg Capsule 200 mg PO HS RF: 0 epinephrine [EpiPen] 0.3 mg/0.3 mL Auto-Injector 0.3 mg IM DIRECTED PRN (Reason: Allergic Reaction) RF: 0 albuterol sulfate [Ventolin HFA] 90 mcg/actuation Hfa Aerosol Inhaler 2 puff INHALATION Q4H PRN (Reason: Shortness Of Breath Or Wheezing) RF: 0 cyanocobalamin (vitamin B-12) 1,000 mcg Capsule 1,000 mcg PO QAM RF: 0 nitroglycerin [Nitrostat] 0.4 mg Tablet, Sublingual 0.4 mg Sublingual DIRECTED PRN (Reason: Chest Pain) RF: 0 ipratropium-albuterol 0.5 mg-3 mg(2.5 mg base)/3 mL Solution For Nebulization 3 ml INHALATION QID PRN (Reason: Shortness Of Breath Or Wheezing) RF: 0 pantoprazole 40 mg tablet,delayed release (DR/EC) 40 mg PO BID RF: 0 warfarin 5 mg Tablet 7.5 mg PO 3XWK RF: 0 cholecalciferol (vitamin D3) 1,000 unit (25 mcg) tablet 1,000 unit PO BID RF: 0 prednisone 10 mg tablet 10 mg PO DAILY RF: 0 Referrals Referrals: Petra Kelly CRNP [Primary Care Provider] - Discharge Problem: Asthma exacerbation Qualifiers: Asthma severity: unspecified severity Asthma persistence: persistent Qualified Code(s): J45.901 - Unspecified asthma with (acute) exacerbation The scribe's documentation has been prepared under my direction and personally reviewed by me in its entirety. I confirm that the note above accurately reflects all work, treatment, procedures, and medical decision making performed by me.
[2019-02-23 21:23] LABS: Allen Test Pos (Pos)
[2019-02-23] MEDS ORDERED: DiphenhydrAMINE HCL 50 MG/ML VIAL IV STA (21:42)
--- NOTE | 2019-02-23 21:49 | History & Physical Report ---
Date of Service February 23, 2019 Assessment & Plan (1) Acute on chronic respiratory failure with hypoxia: (2) Asthma exacerbation: This is a 58yo F with a PMH of severe asthma on chronic steroids, heterozygous alpha 1-antitrypsin deficiency, XIAO on CPAP at bedtime with 2 L nasal cannula O2, CAD (s/p stent), CHF, history of PE on Coumadin and other medical problems listed below who presents with worsening shortness of breath over the past few days was found to have acute on chronic respiratory failure with hypoxia and asthma exacerbation. Patient seen in collaboration with Dr. Salas. Please see addendum for full assessment and plan details. (3) Hypokalemia: (4) Chronic diastolic heart failure: (5) CAD (coronary artery disease): (6) Anemia: (7) History of pulmonary embolism: (8) Dyslipidemia: History of Present Illness Chief Complaint: Shortness of breath Primary Care Provider: CRISTOPHER Mckeon This is a 58yo F with a PMH of severe asthma on chronic steroids, XIAO on CPAP at bedtime with 2 L nasal cannula O2, CAD (s/p stent), CHF, history of PE on Coumadin and other medical problems listed below who presents with worsening shortness of breath over the past few days. Has noted a sore throat, ear pain and a "tight" feeling in lower chest/abdomen that makes it difficult for her to take a full breath. Denies fever, chills or cough. Was started on 10-day Augmentin course and prednisone taper for concern for acute bronchitis. Currently endorsing tight feeling in upper chest and difficulty breathing but denies fever, chills, lightheadedness, visual changes, chest pain, palpitations, nausea, vomiting, abdominal pain, dysuria, diarrhea or constipation. Is taking all medications as prescribed. Initially hypoxic at 86% on room air but improved to 98% on 2 L nasal cannula. Usually only requires oxygen at night with CPAP. WBC count stable at 10.9 on chronic steroids. Hemoglobin around baseline at 9.4. INR is therapeutic at 2.3 on Coumadin. Chest x-ray unchanged with left basilar opacity suggestive of atelectasis. Allergies Allergy/AdvReac Type Severity Reaction Status Date / Time aspirin Allergy Intermediate HIVES Verified 02/23/19 17:43 ibuprofen Allergy Intermediate HIVES Verified 02/23/19 17:43 levofloxacin Allergy Intermediate HIVES Verified 02/23/19 17:43 Iodinated Contrast Media Allergy Unknown IV ONLY - Verified 02/23/19 17:43 HIVES pregabalin AdvReac Intermediate SEVERE Verified 02/23/19 17:43 DEPRESSION zolpidem AdvReac Intermediate HALLUCINATI Verified 02/23/19 17:43 ONS gabapentin AdvReac Mild GOOFY Verified 02/23/19 17:43 THOUGHTS Home Medications Home Medications Medication Instructions Recorded Confirmed Type albuterol sulfate [Ventolin HFA] 2 puff INHALATION Q4H PRN 03/03/18 02/23/19 History cyanocobalamin (vitamin B-12) 1,000 mcg PO QAM 03/03/18 02/23/19 History docusate sodium [Colace] 200 mg PO HS 03/03/18 02/23/19 History epinephrine [EpiPen] 0.3 mg IM DIRECTED PRN 03/03/18 02/23/19 History furosemide [Lasix] 40 mg PO QAM 03/03/18 02/23/19 History nitroglycerin [Nitrostat] 0.4 mg SUBLINGUAL DIRECTED PRN 03/03/18 02/23/19 History polyethylene glycol 3350 [Miralax] 17 g PO DAILY PRN 03/03/18 02/23/19 History ipratropium-albuterol 3 ml INHALATION QID PRN 08/10/18 02/23/19 History immune glob,gamm(IgG) 10 %-pro-IgA 10 gm IV .COMPLEX ml 01/05/19 02/23/19 History 0 to 50 mcg/mL intravenous solution warfarin 5 mg tablet 5 mg PO SUTUTHSA@1600 tab 01/05/19 02/23/19 History clopidogrel 75 mg tablet 75 mg PO QAM 01/06/19 02/23/19 History escitalopram 10 mg tablet 10 mg PO QAM 01/06/19 02/23/19 History amoxicillin 875 mg-potassium 1 tab PO Q12H #20 tab 02/19/19 02/23/19 Rx clavulanate 125 mg tablet atorvastatin 20 mg PO DAILY 02/23/19 02/23/19 History cannabidiol (CBD) extract See Rx Instructions .ROUTE .COMPLEX 02/23/19 02/23/19 History cholecalciferol (vitamin D3) 1,000 unit PO BID 02/23/19 02/23/19 History pantoprazole 40 mg PO BID 02/23/19 02/23/19 History prednisone 10 mg PO DAILY 02/23/19 02/23/19 History warfarin 7.5 mg PO MOWEFR@1600 02/23/19 02/23/19 History Past Med/Surg History Medical History Adrenal insufficiency (Chronic) Hypogammaglobulinemia (Chronic) Chronic respiratory failure with hypoxia, on home O2 therapy (Chronic) Anemia (Chronic) GERD (gastroesophageal reflux disease) (Chronic) Chronic steroid use (Chronic) for severe asthma Heterozygous alpha 1-antitrypsin deficiency (Chronic) Dyslipidemia (Chronic) History of pulmonary embolism (Chronic) CAD (coronary artery disease) (Chronic) Nonobstructive by cardiac cath 11/2017 Asthma, severe persistent (Chronic) XIAO on CPAP (Chronic) Disp fx of distal pole of navicular bone of left wrist w/routine heal (Chronic) 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 Follows with pulm. On chronic steroids Prednisone 20mg and albuterol prn. Has not used albuterol since last hospital admission 03/2018. Chronic back pain Chronic respiratory failure with hypoxia RESPIRATORY ISSUES FROM [facility]RS [facility] WAS ADMITTED FOR BOWEL PERF 2/2 DIVERTICULITIS AND ACUTE ASTHMA EXAC...POST OP ICU ON VENT X 24HRS. Depression Dyslipidemia GERD (gastroesophageal reflux disease) H/O adrenal insufficiency History of colonic diverticulitis History of pulmonary embolism 03/2015 post-op, then again spontaneously 02/2018. On Coumadin. Hypogammaglobulinemia Immunoglobulin deficiency Microscopic hematuria chronic problem Osteoporosis Seizure WORK UPS DONE FOR DX OF SEIZURES..PT REPORTS DR CASAS REPORTED THAT SEIZURES SHOULD NOT BE IN PT HX/SYMPTOMS PRIOR TO WORK UP STUDIES: STANDING UP TO QUICK AFTER SITTING FOR AN HOUR WILL GET WHOOZY FEELING, DOES NOT PASS OUT ...IF SITS BACK DOWN IS FINE Sleep apnea With hypoxemia. Using CPAP with O2 HS Steroid-induced osteoporosis Surgical History History of colectomy (Chronic) COLOSTOMY AND REVERSAL History of colonoscopy (Chronic) History of cardiac catheterization (Chronic) 2017...CHEST TIGHTNESS.ABNORMAL STRESS...[facility]..BLOCKAGES 50 % 60% - NO STENT(S) FEW YEARS AGO...CHEST DISCOMFORT...[place]...NO FINDINGS H/O dilation and curettage H/O exploratory laparotomy Organ biopsies for suspected Hodgkins lymphoma, long time ago H/O right knee surgery H/O sinus surgery H/O: hysterectomy History of appendectomy History of bronchoscopy "for mucous plugs" History of carpal tunnel surgery S/P herniorrhaphy Status post hernia repair Status post partial colectomy Family History Mother Hypertension Father Coronary heart disease Social History Preferred Language: Omani Communication Ability: Effective Visual Impairment: No Limitations Hearing Ability: Normal Seam Stay Stitcher Required: No Beliefs That Will Affect Care: None marital status: Current Living Situation: Spouse current occupational status: disabled Other Information That Helps Us Care for You: No Feels Safe at Home: Yes Safety Concerns: Feels Safe At This Time Smoking Status: Never smoker Tobacco Type: cigarettes ; Cigarettes Per Day: 20 ; Second Hand Exposure: No ; Hx Alcohol Use: No Hx Substance Use: No Review of Systems Review of Systems: At least ten systems reviewed and negative except as noted in the HPI. Physical Exam Physical Exam: General Appearance: WD/WN, vitals as above, NAD, sitting up in bed, pleasant, conversing easily, + anxious Head: normocephalic, atraumatic Eyes: normal inspection, PERRL, conjunctivae normal, anicteric sclerae ENT: external ear and nose normal, TMs pearly salazar bilaterally without surrounding erythema, oropharynx normal Neck: trachea midline, no thyromegaly normal visual inspection Respiratory: decreased air movement with expiratory wheezes throughout lung mccain. No rales or rhonchi. No accessory muscle use Cardiovascular: regular rate, rhythm, no murmur, normal peripheral pulses. Vessels: no JVD or carotid bruit Chest: normal inspection of chest Abdomen/GI: normal bowel sounds, soft, nontender, no hepatosplenomegaly Extremities/Musculoskelatal: no cyanosis or clubbing, extremities motor strength 5/5 Neurologic: PERRL, EOMI, accommodation nl, no face palsy, no dysarthria CN's II-XI intact bilaterally and moves all extremities Psychiatric: A+Ox3, euthymic affect Skin: no rashes, normal color, warm/dry Results & Data Vital Signs (Past 12 Hours) Vital Signs Temp Pulse Pulse Resp BP Pulse Ox 02/23/19 21:00 83 13 154/80 H 98 02/23/19 20:30 77 14 142/83 H 100 02/23/19 20:13 66 16 98 02/23/19 20:00 60 16 150/83 H 96 02/23/19 19:30 68 21 149/73 H 97 02/23/19 19:00 59 L 13 137/75 98 02/23/19 18:57 85 L 02/23/19 18:30 62 14 155/74 H 96 02/23/19 18:00 63 60 17 155/91 H 95 02/23/19 17:56 96 02/23/19 17:37 59 L 25 H 158/77 H 96 02/23/19 17:00 96 02/23/19 16:13 36.9 C 73 22 146/97 H 95 Laboratory Results Short CBC 02/23/19 02/23/19 02/23/19 Range/Units 17:51 17:52 17:52 WBC 10.93 H (4.8-10.8) K/uL RBC 4.34 (4.2-5.4) M/uL Hgb 9.4 L (12.0-16.0) g/dL Hct 32.2 L (37-47) % MCV 74.2 L (80-100) fL MCH 21.7 L (25-34) pg MCHC 29.2 L (32-36) g/dL RDW Std Deviation 53.8 H (36.4-46.3) fL RDW Coeff of Aman 19.8 H (11.5-14.5) % Plt Count 274 (130-400) K/uL MPV 10.2 (7.4-10.4) fL Immature Gran % (Auto) 0.7 % Neut % (Auto) 69.1 % Lymph % (Auto) 20.5 % [place] % (Auto) 7.6 % Eos % (Auto) 1.6 % Baso % (Auto) 0.5 % Immature Gran # (Auto) 0.08 H (0.00-0.02) K/uL Neut # (Auto) 7.55 H (1.4-6.5) K/uL Lymph # (Auto) 2.24 (1.2-3.4) K/uL [place] # (Auto) 0.83 H (0.11-0.59) K/uL Eos # (Auto) 0.18 (0-0.5) K/uL Baso # (Auto) 0.05 (0-0.2) K/uL Polychromasia 1+ Hypochromasia Present Ovalocytes 1+ PT 22.5 H (9.0-12.0) Seconds INR 2.3 H (0.9-1.1) APTT 66.1 H* (21.0-31.0) Seconds PTT Ratio 2.4 VBG pH (7.36-7.41) VBG pCO2 (38-50) mmHg VBG pO2 mmHg VBG HCO3 mmol/L VBG O2 Saturation % VBG Base Excess mEq/L Barometric Pressure mm/Hg Sodium 140 (136-145) mmol/L Potassium 3.4 L (3.5-5.1) mmol/L Chloride 105 (98-107) mmol/L Carbon Dioxide 29 (21-32) mmol/L Anion Gap 6.0 (3-11) BUN 12 (7-18) mg/dl Creatinine 0.80 (0.6-1.2) mg/dl Est Cr Clr Drug Dosing 81.1 ml/min Est GFR ( Amer) 93.5 Est GFR (Non-Af Amer) 80.7 BUN/Creatinine Ratio 14.4 (10-20) Glucose 90 (70-99) mg/dl Calcium 9.0 (8.5-10.1) mg/dl Magnesium 2.0 (1.8-2.4) mg/dl Total Bilirubin 0.2 (0.2-1) mg/dl AST 12 L (15-37) U/L ALT 18 (12-78) U/L Alkaline Phosphatase 57 (45-117) U/L Troponin I < 0.015 (0-0.045) ng/ml Total Protein 7.0 (6.4-8.2) gm/dl Albumin 3.3 L (3.4-5.0) gm/dl Globulin 3.7 (2.5-4.0) gm/dl Albumin/Globulin Ratio 0.9 (0.9-2) 02/23/19 Range/Units 17:52 WBC (4.8-10.8) K/uL RBC (4.2-5.4) M/uL Hgb (12.0-16.0) g/dL Hct (37-47) % MCV (80-100) fL MCH (25-34) pg MCHC (32-36) g/dL RDW Std Deviation (36.4-46.3) fL RDW Coeff of Aman (11.5-14.5) % Plt Count (130-400) K/uL MPV (7.4-10.4) fL Immature Gran % (Auto) % Neut % (Auto) % Lymph % (Auto) % [place] % (Auto) % Eos % (Auto) % Baso % (Auto) % Immature Gran # (Auto) (0.00-0.02) K/uL Neut # (Auto) (1.4-6.5) K/uL Lymph # (Auto) (1.2-3.4) K/uL [place] # (Auto) (0.11-0.59) K/uL Eos # (Auto) (0-0.5) K/uL Baso # (Auto) (0-0.2) K/uL Polychromasia Hypochromasia Ovalocytes PT (9.0-12.0) Seconds INR (0.9-1.1) APTT (21.0-31.0) Seconds PTT Ratio VBG pH 7.45 H (7.36-7.41) VBG pCO2 47 (38-50) mmHg VBG pO2 34 mmHg VBG HCO3 31 mmol/L VBG O2 Saturation 64.8 % VBG Base Excess 6.6 mEq/L Barometric Pressure 732.2 mm/Hg Sodium (136-145) mmol/L Potassium (3.5-5.1) mmol/L Chloride (98-107) mmol/L Carbon Dioxide (21-32) mmol/L Anion Gap (3-11) BUN (7-18) mg/dl Creatinine (0.6-1.2) mg/dl Est Cr Clr Drug Dosing ml/min Est GFR ( Amer) Est GFR (Non-Af Amer) BUN/Creatinine Ratio (10-20) Glucose (70-99) mg/dl Calcium (8.5-10.1) mg/dl Magnesium (1.8-2.4) mg/dl Total Bilirubin (0.2-1) mg/dl AST (15-37) U/L ALT (12-78) U/L Alkaline Phosphatase (45-117) U/L Troponin I (0-0.045) ng/ml Total Protein (6.4-8.2) gm/dl Albumin (3.4-5.0) gm/dl Globulin (2.5-4.0) gm/dl Albumin/Globulin Ratio (0.9-2) BMP 02/23/19 17:52 Sodium 140 Potassium 3.4 L Chloride 105 Carbon Dioxide 29 BUN 12 Creatinine 0.80 Glucose 90 Calcium 9.0 Cardiac Enzymes 02/23/19 Range/Units 17:52 Troponin I < 0.015 (0-0.045) ng/ml Liver Function 02/23/19 Range/Units 17:52 Total Bilirubin 0.2 (0.2-1) mg/dl AST 12 L (15-37) U/L ALT 18 (12-78) U/L Alkaline Phosphatase 57 (45-117) U/L Albumin 3.3 L (3.4-5.0) gm/dl Supervising Physician Co-Signing Physician Notes IM ATTENDING : Patient seen and examined. History obtained from patient and records. Preceding documentation by Ms. Tiffani Cardenas PA-C reviewed. In addition, patient complaining of worsening subcostal, epigastric discomfort attributed to rib fractures from recent confinement at [facility] last month. CT chest abdomen pelvis as follows: 1. No acute intra-abdominal or intrapelvic abnormality. 2. Multiple healed remote rib fractures with remote T9 and T11 compression deformities. 3. Minimal patchy groundglass opacities of the apical segment right upper lobe are suspicious for an infectious or inflammatory pneumonitis. 4. Colonic diverticulosis without acute diverticulitis. FINAL ASSESSMENT AND PLAN as follows : Acute on chronic hypoxemic respiratory failure secondary to steroid dependent COPD/asthma exacerbation hx AAT deficiency, hypogammaglobulinemia as per records Failed outpatient treatment history of PE on Coumadin, INR therapeutic Chronic diastolic heart failure (EF 55 to 60%, TTE 2019), euvolemic to dry history CAD status post stent Hypokalemia XIAO on CPAP GERD, stable on regimen hx hypogammaglobulinemia mood disorder, stable past tobacco abuse chronic anemia, hemoglobin at baseline Chronic back pain secondary thoracic compression fractures/rib fractures secondary to steroid induced osteoporosis Medical telemetry Supplemental O2 Baseline ABG Solu-Medrol, nebs RTC Continue recent Augmentin rx by special assemblies supervisor for respiratory tract infection. Replace potassium Judicious narcotic use for pain control. DVT prophylaxis. Coumadin INR goal between 2 and 3 (1) Asthma exacerbation Asthma persistence: persistent Asthma severity: unspecified severity Qualified Code(s): J45.901 - Unspecified asthma with (acute) exacerbation
[2019-02-23 22:05] LABS: Influenza A virus by PCR Neg for Influ A (Neg); Influenza B virus by PCR Neg for Influ B (Neg)
[2019-02-23] MEDS ORDERED: IOVERSOL 100ml IV PRN (22:13)
[2019-02-23] MEDS ORDERED: POLYETHYLENE (MIRALAX) 17 GM PACK PO PRN (22:32)
[2019-02-23] MEDS ORDERED: ACETAMINOPHEN 325 MG TAB PO PRN (22:32)
[2019-02-23] MEDS ORDERED: LACTATED RINGER'S 1,000 ML IV ONE (22:32)
--- NOTE | 2019-02-23 22:44 | CT Scan Report ---
CHEST CT WITH CONTRAST; CT ABDOMEN PELVIS IV CONTRAST ONLY CT DOSE: 1718.52 mGy.cm HISTORY: Acute shortness of breath with lower chest and upper abdominal pain sob, hx rib fxs TECHNIQUE: Multiaxial CT images of the chest, abdomen and pelvis were performed following the IV admi nistration of 93 cc of Optiray 320. A dose lowering technique was utilized adhering to the principl es of JULIANNA. COMPARISON: Chest radiograph of same day, CT chest 03/09/2018, CT abdomen and pelvis 04/13/2017, 03/13. FINDINGS: CT CHEST: Unremarkable thyroid. No adenopathy. Left subclavian Hxoysq-s-Clbr catheter distal tip terminates wit hin the inferior SVC. Heart is normal in size with trace pericardial effusion. No thoracic aortic ane urysm or dissection. Patency of the imaged great vessels. The opacified pulmonary artery appears unre markable. Linear subsegmental bibasilar consolidative and groundglass densities suggest atelectasis. Mild emphysema. Patchy groundglass opacities of the apical segment right upper lobe have slightly pro gressed from comparison. No overt pulmonary edema. Central airways appear patent. Soft tissues are un remarkable. Degenerative changes of the shoulders and spine. Healed remote bilateral rib fractures. R emote compression deformity with kyphoplasty changes at T9. 25% superior endplate compression deformi ty at T11 is unchanged. CT ABDOMEN/PELVIS: There is no pneumatosis or pneumoperitoneum. Cholecystectomy. Mild intrahepatic and extrahepatic bili cristin ductal dilation, likely postsurgical. Spleen, pancreas and adrenal glands are unremarkable. Indet erminate intermediate attenuating 9 x 9 mm lesion of the interpolar right kidney appears unchanged in size from 2015. No urolith or obstructive uropathy. Mild urinary bladder distention. 2.6 cm left adn exal cystic lesion, unchanged. Hysterectomy. Severe calcified plaque of the abdominal aorta without a neurysm. No adenopathy. No bowel obstruction or bowel wall thickening. Colonic diverticulosis without acute diverticulitis. P ostoperative changes from prior partial sigmoid colon resection. The appendix is not diagnostically v isualized, likely surgically absent. No ascites or mesenteric inflammation. Postoperative changes of the anterior abdominal wall. Areas of subcutaneous stranding/nodularity of the anterior abdominal wal l may reflect injection granulomata. Multiple healed remote bilateral rib fractures. No acute fractur e identified. IMPRESSION: 1. No acute intra-abdominal or intrapelvic abnormality. 2. Multiple healed remote rib fractures with remote T9 and T11 compression deformities. 3. Minimal patchy groundglass opacities of the apical segment right upper lobe are suspicious for an infectious or inflammatory pneumonitis. 4. Colonic diverticulosis without acute diverticulitis. 5. Additional findings as above. Electronically signed by: Raudel Javed M.D. 02/23/2019 10:41 PM
[2019-02-23] MEDS: AMOXICILLIN/CLAVULANATE 875 MG TAB PO SCH (23:23)
[2019-02-23] MEDS: TRAMADOL HCL 50 MG TABLET PO PRN (23:42)
[2019-02-24] MEDS ORDERED: XOPENEX/ATROVENT 1.25mg/0.5MG NEB COMBO NEB SCH (01:00)
[2019-02-24] MEDS: IPRATROPIUM BROMIDE NEB SOLN 0.02% 2.5 ML VIAL INH SCH ×4 (01:01→19:08)
[2019-02-24] MEDS: LEVALBUTEROL 1.25MG/0.5ML NEB INH SCH ×4 (01:01→19:08)
[2019-02-24] MEDS: OXYCODONE HCL IR 5 MG TAB (IMMEDIATE RELEASE) PO PRN ×3 (02:08→19:54)
[2019-02-24 06:11] LABS: Basophils # (auto) 0.02 K/uL (0-0.2); Basophils % (auto) 0.2 %; Hematocrit (blood only) 28.6 % (37-47); Hemoglobin 8.5 g/dL (12.0-16.0); Immature Granulocytes # (auto) 0.05 K/uL (0.00-0.02); Immature Granulocytes % (auto) 0.4 %; Lymphocytes # (auto) 1.24 K/uL (1.2-3.4); Lymphocytes % (auto) 10.7 %; Mean Corpuscular Hemoglobin 22.3 pg (25-34); Mean Corpuscular Hgb Conc 29.7 g/dL (32-36); Mean Corpuscular Volume 74.9 fL (80-100); Mean Platelet Volume 10.2 fL (7.4-10.4); Monocytes # (auto) 0.74 K/uL (0.11-0.59); Monocytes % (auto) 6.4 %; Neutrophils # (auto) 9.53 K/uL (1.4-6.5); Neutrophils % (auto) 82.3 %; Platelet Count 274 K/uL (130-400); RDW Coefficient of Variation 20.1 % (11.5-14.5); RDW Standard Deviation 54.5 fL (36.4-46.3); Red Blood Count 3.82 M/uL (4.2-5.4); White Blood Count 11.58 K/uL (4.8-10.8)
[2019-02-24 06:24] LABS: Prothrombin Time 19.4 Seconds (9.0-12.0)
[2019-02-24 06:38] LABS: Anisocytosis Present; Hypochromasia Present; Tear Drop Cells 1+
[2019-02-24 06:50] LABS: BUN Creatinine Ratio 14.3 (10-20); Calcium 8.5 mg/dl (8.5-10.1); Creatinine Clr Calc Pharmacy 72.1 ml/min; Est GFR (African American) 81.1
[2019-02-24] MEDS: AMOXICILLIN/CLAVULANATE 875 MG TAB PO SCH ×2 (08:22→19:57)
[2019-02-24] MEDS: CYANOCOBALAMIN 500 MCG TABLET (VITAMIN B-12) PO SCH (08:23)
[2019-02-24] MEDS: ATORVASTATIN 20 MG TAB PO SCH (08:23)
[2019-02-24] MEDS: ESCITALOPRAM OXALATE 10 MG TAB PO SCH (08:24)
[2019-02-24] MEDS: methylPREDNISolone 40 MG in SYRINGE 0 ML IV SCH (08:24)
[2019-02-24] MEDS: CLOPIDOGREL BISULFATE 75 MG TAB PO SCH (08:24)
[2019-02-24] MEDS: TRAMADOL HCL 50 MG TABLET PO PRN ×2 (08:30→15:10)
[2019-02-24] MEDS ORDERED: predniSONE 10 MG TABLET PO SCH (09:00)
[2019-02-24] MEDS: PANTOprazole 40 MG TAB PO SCH ×2 (11:33→19:57)
--- NOTE | 2019-02-24 11:34 | Pulmonary Consultation ---
Date of Consultation February 24, 2019 Assessment & Plan (1) Asthma, severe persistent: Patient presents with shortness of breath and complaints of increasing chest tightness. Started outpatient antibiotics with Augmentin 02/19/2019 Augmentin continued inpatient every 12 hours * Mild leukocytosis * Afebrile * No sputum * CT scan of the chest with questionable pneumonitis/inflammation right upper lobe Patient started on prednisone taper 02/19/2019 Currently on methylprednisolone 40 mg daily * Changed to oral prednisone tomorrow and taper for 14 days Peak flow meter monitoring 2-3 times a day at home * Continue with inhaled nebulizer treatments with leave albuterol and ipratropium Patient appears to only be on short acting bronchodilators at home We will discuss long-acting bronchodilators as well as inhaled corticosteroids with Dr. Dawson Continue follow-up as an outpatient PFTs most recently completed 2015 * Repeat outpatient PFTs per pulmonary office Avoid asthmatic triggers * Continue pantoprazole 40 mg p.o. twice daily * Aspiration precautions * Elevate head of bed greater than 30 degrees * Out of bed to chair as tolerated (2) History of pulmonary embolism: Chronically anticoagulated with warfarin * INR currently 2.0 No current tachycardia, pleuritic pain, hemoptysis, fever, hypoxia Most recent CTA done in July 2017 was negative for pulmonary embolus (3) CAD (coronary artery disease): History of an STEMI with drug-eluting stent Continue clopidogrel, atorvastatin No current arrhythmias Continue current treatment (4) GERD (gastroesophageal reflux disease): Chronic GERD with history of multiple abdominal surgeries Mesh reported to be throughout entire abdomen per patient This could be contributing to the patient's asthma as she may be having silent aspiration Continue on PPI twice daily Outpatient follow-up with gastroenterology Outpatient follow-up with surgery at [facility] Do not see any acute problems on CT abdomen pelvis Aspiration precautions Elevate head of bed greater than 30 degrees No spicy foods (5) Hypogammaglobulinemia: Infusion monthly No inpatient work-up required (6) DVT prophylaxis: Clopidogrel daily for history of drug-eluting stent Warfarin for history of pulmonary embolus with therapeutic INR of 2.0 Ambulate as tolerated Thank you very much for including us in the care of this patient. Please refer to Dr. Dawson's addendum for further recommendations. Supervising Physician Co-Signing Physician Notes Patient seen and examined. Films were independently reviewed. I independently obtained history from the patient. Agree with assessment as noted by ROSI li. Patient is followed by ROSI Birch in the outpatient setting. She has a history of asthma and reportedly has been on "all of the inhalers". None of them worked so by default she was placed on systemic chronic prednisone therapy and uses albuterol as needed. Her last PFTs were performed back in 2014 and demonstrated moderately severe airflow obstruction with a concomitant restrictive process but a profound bronchodilator response with FEV1 improving by over 25%. Recommendations: 1. Standard of care would be to proceed with a trial of long-acting antic holinergic/inhaled corticosteroid in conjunction with long-acting antimuscarinic. I stressed the importance of treating inflammation in the patient's lung to her in detail. She expressed understanding but appears somewhat apprehensive about pursuing additional inhalers. Follow-up in the outpatient setting with exhaled nitric oxide or repeat PFTs to assess for reversibility may be appropriate. 2. I am not sure what the patient's complaint of upper abdominal discomfort has to do with her breathing but she states it is impairing her ability to take a deep breath. Additional work-up and evaluation for the primary service. I do not think this is a pulmonary pathology. History of Present Illness Reason for Consultation: Respiratory distress Attending Physician: Travis Arias MD History of Present Illness Attending: Dr. Dawson This is a 58 yo female that follows with Semaj Birch PA-C form the [facility] pulmonary office. She was last seen in the office on 02/19/2019. Note stated that she was doing fairly well but was sent home on Augmentin and a prednisone taper due to her feeling as though she was starting to get "tight in my chest". She states that she was running a "low grade fever" but was unable to quantify. She has chronic cough and denies any sputum production. She has no hemoptysis. She denies chest pain but does complain of midepigastric pain from the midline to the left flank. She reports that this has been progressively getting worse for the past 3-4 months. She has multiple abdominal surgeries and multiples installations of mesh. She feels that most of her abdominal issues are related to the extensive amount of mesh that she has. She follows with surgery primarily at [facility] and is scheduled to se them next month. The patient has chronic anemia and receives iron infusions on a regular basis. The patient patient is alpha I antitripsyn deficient and has hypogammaglobulin emia and receives IGGM monthly The patient has CAD and is S/P DUDLEY on chronic Clopidogrel. Chronically anticoagulated with Warfarin - (current INR 2.0) for hx of pulmonary embolism 02/18/2017. CTA 07/27/2017 with resolution of PE GERD: Patient with Tempur-Pedic bed at home which she is able to elevate the head of the bed greater than 30 degrees each night with sleep. Pantoprazole 40 mg p.o. twice daily. Follows with outpatient gastroenterology Regarding her SOB and pulmonary issues, her SOB has progressively gotten worse since the . She has XIAO and uses CPAP with 2L/min O2 HS faithfully at home. She has chronic night sweats which are unchanged form her usual. She has limited exertional dyspnea. She has not been hypoxic on room air this admission. She has mild leukocytosis. The patient states that she is a peak flow meter at home. Typically peak flow readings around 250. Prior to this admission it was as low as 120. She denies any tachycardia or awareness of any arrhythmia. She has no unusual edema of the lower extremities and further denies asymmetrical edema. Most recent pulmonary function testing was done 2015. FVC 55% of predicted. Post broncodilator 67% of predicted FEV1 38% of predicted. Postbronchodilator 48% of predicted FEV1/FVC 69% of predicted. Postbronchodilator 72% of predicted. No diffusion studies were recorded Allergies Allergy/AdvReac Type Severity Reaction Status Date / Time aspirin Allergy Intermediate HIVES Verified 02/23/19 17:43 ibuprofen Allergy Intermediate HIVES Verified 02/23/19 17:43 levofloxacin Allergy Intermediate HIVES Verified 02/23/19 17:43 Iodinated Contrast Media Allergy Unknown IV ONLY - Verified 02/23/19 17:43 HIVES pregabalin AdvReac Intermediate SEVERE Verified 02/23/19 17:43 DEPRESSION zolpidem AdvReac Intermediate HALLUCINATI Verified 02/23/19 17:43 ONS gabapentin AdvReac Mild GOOFY Verified 02/23/19 17:43 THOUGHTS Home Medications Home Medications Medication Instructions Recorded Confirmed Type albuterol sulfate [Ventolin HFA] 2 puff INHALATION Q4H PRN 03/03/18 02/23/19 History cyanocobalamin (vitamin B-12) 1,000 mcg PO QAM 03/03/18 02/23/19 History docusate sodium [Colace] 200 mg PO HS 03/03/18 02/23/19 History epinephrine [EpiPen] 0.3 mg IM DIRECTED PRN 03/03/18 02/23/19 History furosemide [Lasix] 40 mg PO QAM 03/03/18 02/23/19 History nitroglycerin [Nitrostat] 0.4 mg SUBLINGUAL DIRECTED PRN 03/03/18 02/23/19 History polyethylene glycol 3350 [Miralax] 17 g PO DAILY PRN 03/03/18 02/23/19 History ipratropium-albuterol 3 ml INHALATION QID PRN 08/10/18 02/23/19 History immune glob,gamm(IgG) 10 %-pro-IgA 10 gm IV .COMPLEX ml 01/05/19 02/23/19 History 0 to 50 mcg/mL intravenous solution warfarin 5 mg tablet 5 mg PO SUTUTHSA@1600 tab 01/05/19 02/23/19 History clopidogrel 75 mg tablet 75 mg PO QAM 01/06/19 02/23/19 History escitalopram 10 mg tablet 10 mg PO QAM 01/06/19 02/23/19 History amoxicillin 875 mg-potassium 1 tab PO Q12H #20 tab 02/19/19 02/23/19 Rx clavulanate 125 mg tablet atorvastatin 20 mg PO DAILY 02/23/19 02/23/19 History cannabidiol (CBD) extract See Rx Instructions .ROUTE .COMPLEX 02/23/19 02/23/19 History cholecalciferol (vitamin D3) 1,000 unit PO BID 02/23/19 02/23/19 History pantoprazole 40 mg PO BID 02/23/19 02/23/19 History prednisone 10 mg PO DAILY 02/23/19 02/23/19 History warfarin 7.5 mg PO MOWEFR@1600 02/23/19 02/23/19 History Patient History Medical History Adrenal insufficiency (Chronic) Hypogammaglobulinemia (Chronic) Chronic respiratory failure with hypoxia, on home O2 therapy (Chronic) Anemia (Chronic) GERD (gastroesophageal reflux disease) (Chronic) Chronic steroid use (Chronic) for severe asthma Heterozygous alpha 1-antitrypsin deficiency (Chronic) Dyslipidemia (Chronic) History of pulmonary embolism (Chronic) CAD (coronary artery disease) (Chronic) Nonobstructive by cardiac cath 11/2017 Asthma, severe persistent (Chronic) XIAO on CPAP (Chronic) Disp fx of distal pole of navicular bone of left wrist w/routine heal (Chronic) 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 Follows with pulm. On chronic steroids Prednisone 20mg and albuterol prn. Has not used albuterol since last hospital admission 03/2018. Chronic back pain Chronic respiratory failure with hypoxia RESPIRATORY ISSUES FROM ASTHMA [facility]ACK 5 YRS [facility] WAS ADMITTED FOR BOWEL PERF 2/2 DIVERTICULITIS AND ACUTE ASTHMA EXAC...POST OP ICU ON VENT X 24HRS. Depression Dyslipidemia GERD (gastroesophageal reflux disease) H/O adrenal insufficiency History of colonic diverticulitis History of pulmonary embolism 03/2015 post-op, then again spontaneously 02/2018. On Coumadin. Hypogammaglobulinemia Immunoglobulin deficiency Microscopic hematuria chronic problem Osteoporosis Seizure WORK UPS DONE FOR DX OF SEIZURES..PT REPORTS DR CASAS REPORTED THAT SEIZURES SHOULD NOT BE IN PT HX/SYMPTOMS PRIOR TO WORK UP STUDIES: STANDING UP TO QUICK AFTER SITTING FOR AN HOUR WILL GET WHOOZY FEELING, DOES NOT PASS OUT ...IF SITS BACK DOWN IS FINE Sleep apnea With hypoxemia. Using CPAP with O2 HS Steroid-induced osteoporosis Surgical History History of colectomy (Chronic) COLOSTOMY AND REVERSAL History of colonoscopy (Chronic) History of cardiac catheterization (Chronic) 2017...CHEST TIGHTNESS.ABNORMAL STRESS...[facility]..BLOCKAGES 50 % 60% - NO STENT(S) FEW YEARS AGO...CHEST DISCOMFORT...[place]...NO FINDINGS H/O dilation and curettage H/O exploratory laparotomy Organ biopsies for suspected Hodgkins lymphoma, long time ago H/O right knee surgery H/O sinus surgery H/O: hysterectomy History of appendectomy History of bronchoscopy "for mucous plugs" History of carpal tunnel surgery S/P herniorrhaphy Status post hernia repair Status post partial colectomy Family History Mother Hypertension Father Coronary heart disease Social History Preferred Language: Mauritian Communication Ability: Effective Visual Impairment: No Limitations Hearing Ability: Normal Wrist Closer Required: No Beliefs That Will Affect Care: None marital status: Current Living Situation: Spouse current occupational status: disabled Other Information That Helps Us Care for You: No Feels Safe at Home: Yes Safety Concerns: Feels Safe At This Time Smoking Status: Former smoker Tobacco Type: cigarettes ; Years Smoked: 32 ; Cigarettes Per Day: 20 ; Number of Years Since Quit: 14 ; Second Hand Exposure: No ; Hx Alcohol Use: No Hx Substance Use: No Review of Systems Review of Systems: All systems reviewed & are unremarkable except as noted in HPI & below Physical Exam Physical Exam: GENERAL : No acute distress. Talking in full sentences without dyspnea EYES: No icterus, gaze conjugate NOSE: No evidence of epistaxis MOUTH: No lesions or candidiasis. Mucosa moist. Upper and lower dentures in place. NECK: Supple LUNGS: Decreased breath sounds globally. Expiratory wheezes noted in posterior lung mccain as well as upper anterior lung mccain. No rhonchi or crackles appreciated HEART: Regular, rate controlled. No appreciation of murmurs gallops or rubs. ABDOMEN: Soft, NT, ND, BS Present EXTREMITIES: No LE edema, pedal pulses intact and equal bilaterally. NEURO: A&OX3. Results & Data Vital Signs (Past 12 Hours) Vital Signs Temp Pulse Pulse Resp BP Pulse Ox 02/24/19 07:28 88 15 97 02/24/19 07:22 60 02/24/19 07:11 36.7 C 60 18 104/58 L 98 02/24/19 04:12 36.6 C 71 18 127/65 96 02/24/19 00:10 83 18 91 Laboratory Results 02/24/19 05:55 02/24/19 05:[address] WITH CONTRAST; CT ABDOMEN PELVIS IV CONTRAST ONLY CT DOSE: 1718.52 mGy.cm HISTORY: Acute shortness of breath with lower chest and upper abdominal pain sob, hx rib fxs TECHNIQUE: Multiaxial CT images of the chest, abdomen and pelvis were performed following the IV administration of 93 cc of Optiray 320. A dose lowering technique was utilized adhering to the principles of ALARA. COMPARISON: Chest radiograph of same day, CT chest 03/09/2018, CT abdomen and pelvis 04/13/2017, 03/31/2015. FINDINGS: CT CHEST: Unremarkable thyroid. No adenopathy. Left subclavian Jiztux-v-Gban catheter distal tip terminates within the inferior SVC. Heart is normal in size with trace pericardial effusion. No thoracic aortic aneurysm or dissection. Patency of the imaged great vessels. The opacified pulmonary artery appears unremarkable. Linear subsegmental bibasilar consolidative and groundglass den sities suggest atelectasis. Mild emphysema. Patchy groundglass opacities of the apical segment right upper lobe have slightly progressed from comparison. No overt pulmonary edema. Central airways appear patent. Soft tissues are unremarkable. Degenerative changes of the shoulders and spine. Healed remote bilateral rib fractures. Remote compression deformity with kyphoplasty changes at T9. 25% superior endplate compression deformity at T11 is unchanged. CT ABDOMEN/PELVIS: There is no pneumatosis or pneumoperitoneum. Cholecystectomy. Mild intrahepatic and extrahepatic biliary ductal dilation, likely postsurgical. Spleen, pancreas and adrenal glands are unremarkable. Indeterminate intermediate attenuating 9 x 9 mm lesion of the interpolar right kidney appears unchanged in size from 2015. No urolith or obstructive uropathy. Mild urinary bladder distention. 2.6 cm left adnexal cystic lesion, unchanged. Hysterectomy. Severe calcified plaque of the abdominal aorta without aneurysm. No adenopathy. No bowel obstruction or bowel wall thickening. Colonic diverticulosis without acute diverticulitis. Postoperative changes from prior partial sigmoid colon resection. The appendix is not diagnostically visualized, likely surgically absent. No ascites or mesenteric inflammation. Postoperative changes of the anterior abdominal wall. Areas of subcutaneous stranding/nodularity of the anterior abdominal wall may reflect injection granulomata. Multiple healed remote bilateral rib fractures. No acute fracture identified. IMPRESSION: 1. No acute intra-abdominal or intrapelvic abnormality. 2. Multiple healed remote rib fractures with remote T9 and T11 compression deformities. 3. Minimal patchy groundglass opacities of the apical segment right upper lobe are suspicious for an infectious or inflammatory pneumonitis. 4. Colonic diverticulosis without acute diverticulitis. 5. Additional findings as above. Electronically signed by: Raudel Javed M.D. 02/23/2019 10:41 PM PG Care Time/CCT Total # of Minutes Spent Total Time Spent with Patient: Total time spent is greater than 50% in coordination of care (as documented) at patient's floor/unit and/or counseling patient: 40
--- NOTE | 2019-02-24 11:48 | Hospitalist Progress Note ---
Date of Service February 24, 2019 Assessment & Plan (1) Acute on chronic respiratory failure with hypoxia: Secondary to asthma exacerbation complicated by heterozygous alpha 1 antitrypsin deficiency and sleep apnea CT of the chest showed old healed rib fractures and remote T9 compression defo rmities, minimal patchy groundglass opacities of the apical segment of the right upper lobe suspicious for infectious and/or inflammatory pneumonitis. Clinically better saturating well with nasal cannula oxygen (2) Asthma exacerbation: This is a 58yo F with a PMH of severe asthma on chronic steroids, heterozygous alpha 1-antitrypsin deficiency, XIAO on CPAP at bedtime with 2 L nasal cannula O2, CAD (s/p stent), CHF, history of PE on Coumadin and other medical problems listed below who presents with worsening shortness of breath over the past few days was found to have acute on chronic respiratory failure with hypoxia and asthma exacerbation. Has been on intravenous Solu-Medrol and nebulized bronchodilators Oxygen supplementation at visit Has been on Augmentin as an outpatient and will finish the course Feeling better but complains to have some upper abdominal discomfort which seems to be chronic Appreciate pulmonary input and recommendation We will continue current management (3) Hypokalemia: Sodium level is corrected (4) Chronic diastolic heart failure: No evidence of acute CHF and no fluid overload Will restart her home dose of furosemide (5) CAD (coronary artery disease): Denies any acute cardiac symptoms Status post cardiac cath in October of this year: Impression: Mildly elevated pulmonary artery pressures Normal left ventricular filling pressure Widely patent stent in the left circumflex artery No change in the right coronary stenosis previously documented on 08/11/2018 Normal cardiac output No evidence of aortic stenosis (6) Anemia: Hemoglobin remains at 8.5 (7) History of pulmonary embolism: INR is therapeutic at 2.0 We will continue current dose of Coumadin (8) Dyslipidemia: Continue statin Chronic abdominal pain and has a mesh to prevent hernia Complaint history of worse for the last few days Denies any distention and/or obstructive symptoms Has been on Protonix 40 mg twice daily Will start that medications while in the hospital CT scan of the abdomen and pelvis did not show any significant findings Subjective 02/24 Patient was seen and examined in medical telemetry unit She was admitted yesterday with the acute exacerbation of asthma Complaining of upper abdominal discomfort/pain for the last 2 months without any obstructive symptoms No fever and chills Denies any shortness of breath at rest Review of Systems Review of Systems: All systems reviewed and are unremarkable except as noted below Constitutional: + weakness; no fever Respiratory: no cough and no dyspnea Gastrointestinal: + abdominal pain (Upper abdominal discomfort with fullness) and + bloating; no nausea and no vomiting Physical Exam Physical Exam: Lying in bed comfortably without any respiratory distress Constitutional: well developed, well nourished and + obese; no acute distress and not ill appearing Eyes: PERRL, conjunctivae normal, anicteric sclerae ENMT: external ear and nose normal, oropharynx normal Neck: trachea midline, no thyromegaly Respiratory: normal respiratory effort; no respiratory distress Auscultation: lungs clear to auscultation bilaterally and + wheezes (Very minimal wheezing with expiration) Cardiovascular: Rate/Rhythm: regular rate and regular rhythm Heart Sounds: no murmur Gastrointestinal (Abdomen): Inspection/Auscultation: + abdomen distended and normal bowel sounds Percussion/Palpation: + abdomen tender (Mildly tender upper quadrants and epigastrium) and abdomen soft; no guarding Musculoskeletal: No acute arthritis in any of the joints Neurologic: moves all extremities; no focal motor deficits Motor/Sensory: no tremor Lymphatic: no cervical or axillary lymphadenopathy Results & Data Vital Signs (Past 12 Hours) Vital Signs Temp Pulse Pulse Resp BP Pulse Ox 02/24/19 07:28 88 15 97 02/24/19 07:22 60 02/24/19 07:11 36.7 C 60 18 104/58 L 98 02/24/19 04:12 36.6 C 71 18 127/65 96 02/24/19 00:10 83 18 91 (1) Asthma exacerbation Asthma persistence: persistent Asthma severity: unspecified severity Qualified Code(s): J45.901 - Unspecified asthma with (acute) exacerbation
[2019-02-24] MEDS ORDERED: HEPARIN 100 UNIT/ML 5ML FLUSH ONE (15:55)
[2019-02-24] MEDS: TIOTROPIUM BROMIDE 5 PUFF/90 MCG INH INH SCH (17:52)
[2019-02-24] MEDS: DOCUSATE SODIUM 100 MG CAP PO SCH (19:57)
[2019-02-24] MEDS ORDERED: WARFARIN SOD 7.5 MG TAB PO STA (20:08)
[2019-02-24] MEDS: BUDESONIDE/FORMOTEROL FUMARATE 160/4.5 60 PUFFS/INHALER INH SCH (20:33)
[2019-02-25] MEDS: IPRATROPIUM BROMIDE NEB SOLN 0.02% 2.5 ML VIAL INH SCH ×5 (01:09→19:33)
[2019-02-25] MEDS: LEVALBUTEROL 1.25MG/0.5ML NEB INH SCH ×5 (01:10→19:33)
[2019-02-25] MEDS: TRAMADOL HCL 50 MG TABLET PO PRN ×2 (02:06→07:47)
[2019-02-25] MEDS: OXYCODONE HCL IR 5 MG TAB (IMMEDIATE RELEASE) PO PRN ×2 (04:38→19:41)
[2019-02-25 06:08] LABS: INR 1.6 (0.9-1.1); Prothrombin Time 15.6 Seconds (9.0-12.0)
[2019-02-25] MEDS: ESCITALOPRAM OXALATE 10 MG TAB PO SCH (07:48)
[2019-02-25] MEDS: BUDESONIDE/FORMOTEROL FUMARATE 160/4.5 60 PUFFS/INHALER INH SCH ×2 (07:48→20:22)
[2019-02-25] MEDS: methylPREDNISolone 40 MG in SYRINGE 0 ML IV SCH (07:48)
[2019-02-25] MEDS: ATORVASTATIN 20 MG TAB PO SCH (07:48)
[2019-02-25] MEDS: PANTOprazole 40 MG TAB PO SCH ×2 (07:49→20:22)
[2019-02-25] MEDS: CLOPIDOGREL BISULFATE 75 MG TAB PO SCH (07:49)
[2019-02-25] MEDS: AMOXICILLIN/CLAVULANATE 875 MG TAB PO SCH ×2 (07:49→20:21)
[2019-02-25] MEDS: CYANOCOBALAMIN 500 MCG TABLET (VITAMIN B-12) PO SCH (07:49)
[2019-02-25] MEDS: TIOTROPIUM BROMIDE 5 PUFF/90 MCG INH INH SCH (07:49)
--- NOTE | 2019-02-25 10:32 | Pulmonology Progress Note ---
Date of Service February 25, 2019 Assessment & Plan (1) Acute on chronic respiratory failure with hypoxia: Impression: 58-year-old female with advanced obstructive lung disease. She was admitted with decrease in her peak flows. She is not profoundly bronchospastic currently but does report increasing shortness of breath largely related to a feeling of midepigastric fullness which prevents her from taking a deep breath. She was reassured that her chest x-ray and CT scan are unremarkable. Recommendations: 1. Severe obstructive lung disease: Continue bronchodilators in the form of Sym bicort and Spiriva as well as as needed albuterol. Outpatient follow-up with repeat pulmonary function tests and assessment of exhaled nitric oxide may be beneficial. Seems reasonable to continue prednisone and oral Augmentin to complete course. 2. Hypoxemic respiratory failure, acute on chronic: Appears relatively stable. Continue oxygen for now. 3. History of thromboembolic disease: Anticoagulated on Coumadin. 4. Management of the patient's other medical problems is deferred to her ad mitting service. The patient can be dismissed from the hospital when she feels she is stable to go home. She should follow-up with Dr. Kim and ROSI Birch in the pulmonary clinic (2) Asthma exacerbation: Asthma persistence: persistent Asthma severity: unspecified severity Qualified Code(s): J45.901 - Unspecified asthma with (acute) exacerbation (3) Heterozygous alpha 1-antitrypsin deficiency: Subjective Patient seen and examined. EMR reviewed. She states that she feels like she is rattling more in her chest. She did initiate the inhalers. Her abdominal discomfort remains about the same. She is not coughing or expectorating significant phlegm. No lower extremity edema. Review of Systems Review of Systems: Unchanged from prior Physical Exam Physical Exam: GENERAL : No acute distress. Talking in full sentences without dyspnea EYES: No icterus, gaze conjugate NOSE: No evidence of epistaxis MOUTH: No lesions or candidiasis. Mucosa moist. Upper and lower dentures in place. NECK: Supple LUNGS: Decreased breath sounds globally. Expiratory wheezes noted in posterior lung mccain as well as upper anterior lung mccain. No rhonchi or crackles appreciated HEART: Regular, rate controlled. No appreciation of murmurs gallops or rubs. ABDOMEN: Soft, NT, ND, BS Present EXTREMITIES: No LE edema, pedal pulses intact and equal bilaterally. NEURO: A&OX3. Results & Data Vital Signs (Past 12 Hours) Vital Signs Temp Pulse Pulse Resp BP Pulse Ox 02/25/19 07:44 60 18 98 02/25/19 07:41 113/74 02/25/19 07:16 58 L 02/25/19 07:00 36.4 C L 60 18 98/60 L 98 02/25/19 04:50 36.5 C 55 L 20 102/65 97 02/25/19 01:15 66 16 98 02/25/19 01:10 66 16 98 02/24/19 23:17 36.5 C 65 20 107/69 96 Laboratory Results 02/24/19 05:55 02/24/19 05:55 Diagnostic Findings No new imaging PG Care Time/CCT Total # of Minutes Spent Total Time Spent with Patient: Total time spent is greater than 50% in coordination of care (as documented) at patient's floor/unit and/or counseling patient:
--- NOTE | 2019-02-25 11:30 | Hospitalist Progress Note ---
Date of Service February 25, 2019 Assessment & Plan (1) Acute on chronic respiratory failure with hypoxia: Secondary to asthma exacerbation complicated by heterozygous alpha 1 antitrypsin deficiency and sleep apnea CT of the chest showed old healed rib fractures and remote T9 compression defo rmities, minimal patchy groundglass opacities of the apical segment of the right upper lobe suspicious for infectious and/or inflammatory pneumonitis. Clinically better saturating well with nasal cannula oxygen Feeling a little bit better but not ready to be discharged Advised to ambulate more in the hallway (2) Asthma exacerbation: This is a 58yo F with a PMH of severe asthma on chronic steroids, heterozygous alpha 1-antitrypsin deficiency, XIAO on CPAP at bedtime with 2 L nasal cannula O2, CAD (s/p stent), CHF, history of PE on Coumadin and other med ical problems listed below who presents with worsening shortness of breath over the past few days was found to have acute on chronic respiratory failure with hypoxia and asthma exacerbation. Has been on intravenous Solu-Medrol and nebulized bronchodilators Oxygen supplementation at visit Has been on Augmentin as an outpatient and will finish the course Feeling better but complains to have some upper abdominal discomfort which seems to be chronic Appreciate pulmonary input and recommendation We will continue current management Clinically bit better today Complaints of shortness of breath on minimal exertion Advised more ambulation (3) Hypokalemia: Sodium level is corrected (4) Chronic diastolic heart failure: No evidence of acute CHF and no fluid overload Will restart her home dose of furosemide (5) CAD (coronary artery disease): Denies any acute cardiac symptoms Status post cardiac cath in October of this year: Impression: Mildly elevated pulmonary artery pressures Normal left ventricular filling pressure Widely patent stent in the left circumflex artery No change in the right coronary stenosis previously documented on 08/11/2018 Normal cardiac output No evidence of aortic stenosis No cardiac symptoms (6) Anemia: Hemoglobin remains at 8.5 (7) History of pulmonary embolism: INR is therapeutic at 2.0 We will continue current dose of Coumadin INR is 1.6 today (8) Dyslipidemia: Continue statin Chronic abdominal pain and has a mesh to prevent hernia Complaint history of worse for the last few days Denies any distention and/or obstructive symptoms Has been on Protonix 40 mg twice daily Will start that medications while in the hospital CT scan of the abdomen and pelvis did not show any significant findings Likely be discharged tomorrow after lunch Subjective 02/24 Patient was seen and examined in medical telemetry unit She was admitted yesterday with the acute exacerbation of asthma Complaining of upper abdominal discomfort/pain for the last 2 months without any obstructive symptoms No fever and chills Denies any shortness of breath at rest 02/25 The patient was seen and examined in medical telemetry unit She complains to have shortness of breath on minimal exertion Does not think that she can go home today Abdominal pain and other symptoms remain stable Review of Systems Review of Systems: All systems reviewed and are unremarkable except as noted below Constitutional: + weakness; no fever Respiratory: + cough and + dyspnea on exertion Cardiovascular: no chest pain Gastrointestinal: + abdominal pain (Upper abdominal discomfort with fullness) and + bloating; no nausea and no vomiting Physical Exam Physical Exam: Lying in bed comfortably Constitutional: well developed, well nourished and + obese; no acute distress and not ill appearing Eyes: PERRL, conjunctivae normal, anicteric sclerae ENMT: external ear and nose normal, oropharynx normal Neck: trachea midline, no thyromegaly Respiratory: normal respiratory effort; no respiratory distress Auscu ltation: lungs clear to auscultation bilaterally and + wheezes (Very minimal wheezing with expiration) Cardiovascular: Rate/Rhythm: regular rate and regular rhythm Heart Sounds: no murmur Gastrointestinal (Abdomen): Inspection/Auscultation: + abdomen distended and normal bowel sounds Percussion/Palpation: + abdomen tender (Mildly tender upper quadrants and epigastrium) and abdomen soft; no guarding Neurologic: moves all extremities; no focal motor deficits Motor/Sensory: no tremor Psychiatric: A+Ox3, euthymic affect Lymphatic: no cervical or axillary lymphadenopathy Results & Data Vital Signs (Past 12 Hours) Vital Signs Temp Pulse Pulse Resp BP Pulse Ox 02/25/19 07:44 60 18 98 02/25/19 07:41 113/74 02/25/19 07:16 58 L 02/25/19 07:00 36.4 C L 60 18 98/60 L 98 02/25/19 04:50 36.5 C 55 L 20 102/65 97 02/25/19 01:15 66 16 98 02/25/19 01:10 66 16 98 Medications Administered Current Inpatient Medications Acetaminophen (Tylenol) 650 mg PO Q4H PRN PRN Reason: Pain or Fever Stop: 11/14/19 22:31 Amoxicillin/Clavulanate Potassium (Augmentin 875mg) 1 tab PO Q12 DESI Stop: 03/02/19 22:31 Last Admin: 02/25/19 07:49 Dose: 1 tab Documented by: Atorvastatin Calcium (Lipitor) 20 mg PO DAILY DESI Stop: 03/26/19 08:59 Last Admin: 02/25/19 07:48 Dose: 20 mg Documented by: Budesonide/Formoterol Fumarate (Symbicort 160mcg/4.5mcg) 2 puffs INH BID DESI Stop: 03/26/19 20:59 Last Admin: 02/25/19 07:48 Dose: 2 puffs Documented by: Clopidogrel Bisulfate (Plavix) 75 mg PO QAM DESI Stop: 03/26/19 08:59 Last Admin: 02/25/19 07:49 Dose: 75 mg Documented by: Cyanocobalamin (Vitamin B-12) 1,000 mcg PO QAM DESI Stop: 03/26/19 08:59 Last Admin: 02/25/19 07:49 Dose: 1,000 mcg Documented by: Docusate Sodium (Colace) 200 mg PO HS DESI Stop: 03/26/19 20:59 Last Admin: 02/24/19 19:57 Dose: 200 mg Documented by: Escitalopram Oxalate (Lexapro Tab) 10 mg PO QAM DESI Stop: 03/26/19 08:59 Last Admin: 02/25/19 07:48 Dose: 10 mg Documented by: Heparin Sodium (Porcine) (Heparin Sod 100 Unit/Ml Flush) 5 ml FLUSH PRN PRN PRN Reason: Flush Stop: 03/27/19 08:15 Methylprednisolone 40 mg/ (Syringe) 0.64 mls @ 1.5 mls/min IV DAILY DESI Stop: 03/26/19 08:59 Last Admin: 02/25/19 07:48 Dose: 1.5 mls/min Documented by: Promethazine HCl 12.5 mg/ (Sodium Chloride) 50.5 mls @ 202 mls/hr IV Q6H PRN PRN Reason: Nausea And Vomiting Stop: 03/25/19 22:31 Ioversol (Optiray 320 100ml) 93 ml IV ONCE PRN PRN Reason: Interaction Checking Stop: 02/27/19 22:12 Last Admin: 02/23/19 22:13 Dose: 93 ml Documented by: Ipratropium Milam (Atrovent 0.02% 0.5mg/2.5ml) 0.5 mg INH Q6R [facility] Stop: 03/26/19 00:59 Last Admin: 02/25/19 07:38 Dose: 0.5 mg Documented by: Levalbuterol HCl (Xopenex 1.25mg/0.5ml Neb) 1.25 mg INH Q6R [facility] Stop: 03/26/19 00:59 Last Admin: 02/25/19 07:37 Dose: 1.25 mg Documented by: Oxycodone HCl (Roxicodone Immediate Rel) 5 mg PO Q6H PRN PRN Reason: Pain Stop: 03/10/19 01:49 Last Admin: 02/25/19 04:38 Dose: 5 mg Documented by: Pantoprazole Sodium (Protonix) 40 mg PO BID [facility] Stop: 03/26/19 10:29 Last Admin: 02/25/19 07:49 Dose: 40 mg Documented by: Polyethylene Glycol (Miralax Powder Packet) 17 gm PO DAILY PRN PRN Reason: Constipation Stop: 03/25/19 22:31 Tiotropium Milam (Spiriva) 1 puffs INH QAM [facility] Stop: 03/26/19 17:59 Last Admin: 02/25/19 07:49 Dose: 1 puffs Documented by: Tramadol HCl (Ultram) 25 - 50 mg PO Q4H PRN PRN Reason: Pain Stop: 03/25/19 22:31 Last Admin: 02/25/19 07:47 Dose: 50 mg Documented by: Warfarin Sodium (Coumadin) 7.5 mg PO MOWEFR@1600 [facility] Stop: 03/28/19 15:59 Warfarin Sodium (Coumadin) 5 mg PO SUTUTHSA@1600 [facility] Stop: 03/27/19 15:59 (1) Asthma exacerbation Asthma persistence: persistent Asthma severity: unspecified severity Qualified Code(s): J45.901 - Unspecified asthma with (acute) exacerbation
[2019-02-25] MEDS: WARFARIN SOD 5 MG TAB PO SCH (17:57)
[2019-02-25] MEDS: DOCUSATE SODIUM 100 MG CAP PO SCH (20:22)
[2019-02-26] MEDS: IPRATROPIUM BROMIDE NEB SOLN 0.02% 2.5 ML VIAL INH SCH ×4 (01:08→19:10)
[2019-02-26] MEDS: LEVALBUTEROL 1.25MG/0.5ML NEB INH SCH ×4 (01:08→19:10)
[2019-02-26] MEDS: OXYCODONE HCL IR 5 MG TAB (IMMEDIATE RELEASE) PO PRN ×3 (03:35→19:52)
[2019-02-26 06:34] LABS: INR 1.9 (0.9-1.1); Prothrombin Time 18.4 Seconds (9.0-12.0)
[2019-02-26] MEDS: ESCITALOPRAM OXALATE 10 MG TAB PO SCH (09:58)
[2019-02-26] MEDS: AMOXICILLIN/CLAVULANATE 875 MG TAB PO SCH ×2 (09:58→20:46)
[2019-02-26] MEDS: CLOPIDOGREL BISULFATE 75 MG TAB PO SCH (09:59)
[2019-02-26] MEDS: CYANOCOBALAMIN 500 MCG TABLET (VITAMIN B-12) PO SCH (09:59)
[2019-02-26] MEDS: ATORVASTATIN 20 MG TAB PO SCH (09:59)
[2019-02-26] MEDS: PANTOprazole 40 MG TAB PO SCH ×2 (09:59→20:46)
[2019-02-26] MEDS: methylPREDNISolone 40 MG in SYRINGE 0 ML IV SCH (10:00)
[2019-02-26] MEDS: HEPARIN 100 UNIT/ML 5ML FLUSH FLUSH PRN (10:01)
[2019-02-26] MEDS: TIOTROPIUM BROMIDE 5 PUFF/90 MCG INH INH SCH (10:04)
[2019-02-26] MEDS: BUDESONIDE/FORMOTEROL FUMARATE 160/4.5 60 PUFFS/INHALER INH SCH ×2 (10:04→20:47)
--- NOTE | 2019-02-26 11:02 | Pulmonology Progress Note ---
Date of Service February 26, 2019 Assessment & Plan (1) Acute on chronic respiratory failure with hypoxia: Impression: 58-year-old female with advanced obstructive lung disease. She was admitted with decrease in her peak flows. She is not profoundly bronchospastic currently but does report increasing shortness of breath largely related to a feeling of midepigastric fullness which prevents her from taking a deep breath. She was reassured that her chest x-ray and CT scan are unremarkable. She feels about the same and does not feel ready for discharge as of yet. Recommendations: 1. Severe obstructive lung disease: Continue bronchodilators in the form of Symbicort and Spiriva as well as as needed albuterol. Outpatient follow-up with repeat pulmonary function tests and assessment of exhaled nitric oxide may be beneficial. Seems reasonable to continue prednisone and oral Augmentin to complete course. 2. Hypoxemic respiratory failure, acute on chronic: Appears relatively stable. Continue oxygen for now. 3. History of thromboembolic disease: Anticoagulated on Coumadin. 4. History of sleep disordered breathing: Continue nightly CPAP. Management of the patient's other medical problems is deferred to her admitting service. The patient can be dismissed from the hospital when she feels she is stable to go home. She should follow-up with Dr. Kim and ROSI Birch in the pulmonary clinic (2) Asthma exacerbation: Asthma persistence: persistent Asthma severity: unspecified severity Qualified Code(s): J45.901 - Unspecified asthma with (acute) exacerbation (3) Heterozygous alpha 1-antitrypsin deficiency: Review of Systems Review of Systems: Unchanged from prior Physical Exam Physical Exam: GENERAL : No acute distress. Talking in full sentences without dyspnea EYES: No icterus, gaze conjugate NOSE: No evidence of epistaxis MOUTH: No lesions or candidiasis. Mucosa moist. Upper and lower dentures in place. NECK: Supple LUNGS: Decreased breath sounds globally. Expiratory wheezes noted in posterior lung mccain as well as upper anterior lung mccain. No rhonchi or crackles appreciated HEART: Regular, rate controlled. No appreciation of murmurs gallops or rubs. ABDOMEN: Soft, NT, ND, BS Present EXTREMITIES: No LE edema, pedal pulses intact and equal bilaterally. NEURO: A&OX3. Results & Data Vital Signs (Past 12 Hours) Vital Signs Temp Pulse Pulse Resp BP Pulse Ox 02/26/19 07:34 36.5 C 63 18 117/75 92 02/26/19 07:32 53 L 14 99 02/26/19 03:04 36.9 C 60 18 106/66 99 02/26/19 01:14 69 16 96 02/26/19 01:08 69 16 96 02/25/19 23:33 65 101/58 L Laboratory Results 02/24/19 05:55 02/24/19 05:55 PG Care Time/CCT Total # of Minutes Spent Total Time Spent with Patient: Total time spent is greater than 50% in coordination of care (as documented) at patient's floor/unit and/or counseling patient:
--- NOTE | 2019-02-26 11:14 | Hospitalist Progress Note ---
Date of Service February 26, 2019 Assessment & Plan (1) Acute on chronic respiratory failure with hypoxia: Secondary to asthma exacerbation complicated by heterozygous alpha 1 antitrypsin deficiency and sleep apnea CT of the chest showed old healed rib fractures and remote T9 compression defo rmities, minimal patchy groundglass opacities of the apical segment of the right upper lobe suspicious for infectious and/or inflammatory pneumonitis. Clinically better saturating well with nasal cannula oxygen Feeling a little bit better but not ready to be discharged Advised to ambulate more in the hallway We will get to do steps O2 saturation test before discharge today (2) Asthma exacerbation: This is a 58yo F with a PMH of severe asthma on chronic steroids, heterozygous alpha 1-antitrypsin deficiency, XIAO on CPAP at bedtime with 2 L nasal cannula O2, CAD (s/p stent), CHF, history of PE on Coumadin and other medical problems listed below who presents with worsening shortness of breath over the past few days was found to have acute on chronic respiratory failure with hypoxia and asthma exacerbation. Has been on intravenous Solu-Medrol and nebulized bronchodilators Oxygen supplementation at visit Has been on Augmentin as an outpatient and will finish the course Feeling better but complains to have some upper abdominal discomfort which seems to be chronic Appreciate pulmonary input and recommendation We will continue current management Clinically bit better today Complaints of shortness of breath on minimal exertion Advised more ambulation No shortness of breath at rest and wheezing has almost disappeared (3) Hypokalemia: Potassium level is corrected (4) Chronic diastolic heart failure: No evidence of acute CHF and no fluid overload Will restart her home dose of furosemide We will continue her current dose of diuretic (5) CAD (coronary artery disease): Denies any acute cardiac symptoms Status post cardiac cath in October of this year: Impression: Mildly elevated pulmonary artery pressures Normal left ventricular filling pressure Widely patent stent in the left circumflex artery No change in the right coronary stenosis previously documented on 08/11/2018 Normal cardiac output No evidence of aortic stenosis No cardiac symptoms (6) Anemia: Hemoglobin remains at 8.5 (7) History of pulmonary embolism: INR is therapeutic at 2.0 We will continue current dose of Coumadin INR is 1.9 today (8) Dyslipidemia: Continue statin Chronic abdominal pain and has a mesh to prevent hernia Complaint history of worse for the last few days Denies any distention and/or obstructive symptoms Has been on Protonix 40 mg twice daily Will start that medications while in the hospital CT scan of the abdomen and pelvis did not show any significant findings Likely be discharged today after lunch Subjective 02/24 Patient was seen and examined in medical telemetry unit She was admitted yesterday with the acute exacerbation of asthma Complaining of upper abdominal discomfort/pain for the last 2 months without any obstructive symptoms No fever and chills Denies any shortness of breath at rest 02/25 The patient was seen and examined in medical telemetry unit She complains to have shortness of breath on minimal exertion Does not think that she can go home today Abdominal pain and other symptoms remain stable 02/26 Patient was seen and examined in medical telemetry unit She denies any symptoms at rest Has been complaining of shortness of breath with low saturation with ambulation She will have to do steps O2 saturation before discharge this afternoon Review of Systems Review of Systems: All systems reviewed and are unremarkable except as noted below Constitutional: + weakness; no fever Respiratory: + cough and + dyspnea on exertion Gastrointestinal: + abdominal pain (Upper abdominal discomfort with fullness) and + bloating; no nausea and no vomiting Physical Exam Physical Exam: No apparent distress at rest Constitutional: well developed, well nourished and + obese; no acute distress and not ill appearing Eyes: PERRL, conjunctivae normal, anicteric sclerae ENMT: external ear and nose normal, oropharynx normal Neck: trachea midline, no thyromegaly Respiratory: normal respiratory effort; no respiratory distress Auscultation: lungs clear to auscultation bilaterally and + wheezes (Very minimal wheezing with expiration) Cardiovascular: Rate/Rhythm: regular rate and regular rhythm Heart Sounds: no murmur Gastrointestinal (Abdomen): Inspection/Auscultation: + abdomen distended and normal bowel sounds Percussion/Palpation: abdomen soft; abdomen nontender and no guarding Musculoskeletal: No acute arthritis in any joints Neurologic: moves all extremities; no focal motor deficits Motor/Sensory: no tremor Psychiatric: A+Ox3, euthymic affect Lymphatic: no cervical or axillary lymphadenopathy Results & Data Vital Signs (Past 12 Hours) Vital Signs Temp Pulse Pulse Resp BP Pulse Ox 02/26/19 07:34 36.5 C 63 18 117/75 92 02/26/19 07:32 53 L 14 99 02/26/19 03:04 36.9 C 60 18 106/66 99 02/26/19 01:14 69 16 96 02/26/19 01:08 69 16 96 02/25/19 23:33 65 101/58 L Medications Administered Current Inpatient Medications Acetaminophen (Tylenol) 650 mg PO Q4H PRN PRN Reason: Pain or Fever Stop: 03/25/19 22:31 Amoxicillin/Clavulanate Potassium (Augmentin 875mg) 1 tab PO Q12 [facility]I Stop: 03/02/19 22:31 Last Admin: 02/26/19 09:58 Dose: 1 tab Documented by: Atorvastatin Calcium (Lipitor) 20 mg PO DAILY [facility]I Stop: 03/26/19 08:59 Last Admin: 02/26/19 09:59 Dose: 20 mg Documented by: Budesonide/Formoterol Fumarate (Symbicort 160mcg/4.5mcg) 2 puffs INH BID [facility] Stop: 03/26/19 20:59 Last Admin: 02/26/19 10:04 Dose: 2 puffs Documented by: Clopidogrel Bisulfate (Plavix) 75 mg PO QAM [facility]I Stop: 03/26/19 08:59 Last Admin: 02/26/19 09:59 Dose: 75 mg Documented by: Cyanocobalamin (Vitamin B-12) 1,000 mcg PO QAM [facility]I Stop: 03/26/19 08:59 Last Admin: 02/26/19 09:59 Dose: 1,000 mcg Documented by: Docusate Sodium (Colace) 200 mg PO HS DESI Stop: 03/26/19 20:59 Last Admin: 02/25/19 20:22 Dose: 200 mg Documented by: Escitalopram Oxalate (Lexapro Tab) 10 mg PO QAM [facility]I Stop: 03/26/19 08:59 Last Admin: 02/26/19 09:58 Dose: 10 mg Documented by: Heparin Sodium (Porcine) (Heparin Sod 100 Unit/Ml Flush) 5 ml FLUSH PRN PRN PRN Reason: Flush Stop: 03/27/19 08:15 Last Admin: 02/26/19 10:01 Dose: 5 ml Documented by: Methylprednisolone 40 mg/ (Syringe) 0.64 mls @ 1.5 mls/min IV DAILY DESI Stop: 03/26/19 08:59 Last Admin: 02/26/19 10:00 Dose: 1.5 mls/min Documented by: Promethazine HCl 12.5 mg/ (Sodium Chloride) 50.5 mls @ 202 mls/hr IV Q6H PRN PRN Reason: Nausea And Vomiting Stop: 03/25/19 22:31 Ioversol (Optiray 320 100ml) 93 ml IV ONCE PRN PRN Reason: Interaction Checking Stop: 02/27/19 22:12 Last Admin: 02/23/19 22:13 Dose: 93 ml Documented by: Ipratropium Unity (Atrovent 0.02% 0.5mg/2.5ml) 0.5 mg INH Q6R [facility] Stop: 03/26/19 00:59 Last Admin: 02/26/19 07:31 Dose: 0.5 mg Documented by: Levalbuterol HCl (Xopenex 1.25mg/0.5ml Neb) 1.25 mg INH Q6R [facility] Stop: 03/26/19 00:59 Last Admin: 02/26/19 07:31 Dose: 1.25 mg Documented by: Oxycodone HCl (Roxicodone Immediate Rel) 5 mg PO Q6H PRN PRN Reason: Pain Stop: 03/10/19 01:49 Last Admin: 02/26/19 10:36 Dose: 5 mg Documented by: Pantoprazole Sodium (Protonix) 40 mg PO BID [facility] Stop: 03/26/19 10:29 Last Admin: 02/26/19 09:59 Dose: 40 mg Documented by: Polyethylene Glycol (Miralax Powder Packet) 17 gm PO DAILY PRN PRN Reason: Constipation Stop: 03/25/19 22:31 Tiotropium Unity (Spiriva) 1 puffs INH QAM [facility] Stop: 03/26/19 17:59 Last Admin: 02/26/19 10:04 Dose: 1 puffs Documented by: Tramadol HCl (Ultram) 25 - 50 mg PO Q4H PRN PRN Reason: Pain Stop: 03/25/19 22:31 Last Admin: 02/25/19 07:47 Dose: 50 mg Documented by: Warfarin Sodium (Coumadin) 7.5 mg PO MOWEFR@1600 [facility] Stop: 03/28/19 15:59 Warfarin Sodium (Coumadin) 5 mg PO SUTUTHSA@1600 [facility] Stop: 03/27/19 15:59 Last Admin: 02/25/19 17:57 Dose: 5 mg Documented by: (1) Asthma exacerbation Asthma persistence: persistent Asthma severity: unspecified severity Qualified Code(s): J45.901 - Unspecified asthma with (acute) exacerbation
[2019-02-26] MEDS ORDERED: WARFARIN SOD 5 MG TAB PO SCH (16:00)
[2019-02-26] MEDS: TRAMADOL HCL 50 MG TABLET PO PRN (16:14)
[2019-02-26] MEDS: DOCUSATE SODIUM 100 MG CAP PO SCH (20:49)
[2019-02-27] MEDS: LEVALBUTEROL 1.25MG/0.5ML NEB INH SCH ×4 (01:17→19:08)
[2019-02-27] MEDS: IPRATROPIUM BROMIDE NEB SOLN 0.02% 2.5 ML VIAL INH SCH ×4 (01:17→19:10)
[2019-02-27] MEDS: OXYCODONE HCL IR 5 MG TAB (IMMEDIATE RELEASE) PO PRN ×3 (05:59→22:30)
[2019-02-27 06:24] LABS: INR 1.9 (0.9-1.1)
[2019-02-27] MEDS: TRAMADOL HCL 50 MG TABLET PO PRN (08:53)
[2019-02-27] MEDS: BUDESONIDE/FORMOTEROL FUMARATE 160/4.5 60 PUFFS/INHALER INH SCH ×2 (08:54→21:47)
[2019-02-27] MEDS: TIOTROPIUM BROMIDE 5 PUFF/90 MCG INH INH SCH (08:55)
[2019-02-27] MEDS: CLOPIDOGREL BISULFATE 75 MG TAB PO SCH (08:56)
[2019-02-27] MEDS: CYANOCOBALAMIN 500 MCG TABLET (VITAMIN B-12) PO SCH (08:56)
[2019-02-27] MEDS: ESCITALOPRAM OXALATE 10 MG TAB PO SCH (08:56)
[2019-02-27] MEDS: ATORVASTATIN 20 MG TAB PO SCH (08:56)
[2019-02-27] MEDS: PANTOprazole 40 MG TAB PO SCH ×2 (08:56→21:46)
[2019-02-27] MEDS: AMOXICILLIN/CLAVULANATE 875 MG TAB PO SCH ×2 (08:57→21:46)
[2019-02-27] MEDS: methylPREDNISolone 40 MG in SYRINGE 0 ML IV SCH (08:57)
[2019-02-27] MEDS: HEPARIN 100 UNIT/ML 5ML FLUSH FLUSH PRN ×3 (09:01→17:13)
--- NOTE | 2019-02-27 13:59 | Hospitalist Progress Note ---
Date of Service February 27, 2019 Assessment & Plan (1) Acute on chronic respiratory failure with hypoxia: Secondary to asthma exacerbation complicated by heterozygous alpha 1 antitrypsin deficiency and sleep apnea CT of the chest showed old healed rib fractures and remote T9 compression defo rmities, minimal patchy groundglass opacities of the apical segment of the right upper lobe suspicious for infectious and/or inflammatory pneumonitis. Clinically better saturating well with nasal cannula oxygen Feeling a little bit better but not ready to be discharged Advised to ambulate more in the hallway Remains stable but feels that she is not yet ready to be discharged No shortness of breath at rest Complaints to have chronic epigastric discomfort with fullness and pain Sucralfate will be added on top of Protonix twice daily Likely discharge tomorrow (2) Asthma exacerbation: This is a 58yo F with a PMH of severe asthma on chronic steroids, heterozygous alpha 1-antitrypsin deficiency, XIAO on CPAP at bedtime with 2 L nasal cannula O2, CAD (s/p stent), CHF, history of PE on Coumadin and other medical problems listed below who presents with worsening shortness of breath over the past few days was found to have acute on chronic respiratory failure with hypoxia and asthma exacerbation. Has been on intravenous Solu-Medrol and nebulized bronchodilators Oxygen supplementation at visit Has been on Augmentin as an outpatient and will finish the course Feeling better but complains to have some upper abdominal discomfort which seems to be chronic Appreciate pulmonary input and recommendation We will continue current management Clinically bit better today Complaints of shortness of breath on minimal exertion Advised more ambulation No shortness of breath at rest and wheezing has almost disappeared No shortness of breath at rest (3) Hypokalemia: Potassium level is corrected (4) Chronic diastolic heart failure: No evidence of acute CHF and no fluid overload Will restart her home dose of furosemide We will continue her current dose of diuretic (5) CAD (coronary artery disease): Denies any acute cardiac symptoms Status post cardiac cath in October of this year: Impression: Mildly elevated pulmonary artery pressures Normal left ventricular filling pressure Widely patent stent in the left circumflex artery No change in the right coronary stenosis previously documented on 08/11/2018 Normal cardiac output No evidence of aortic stenosis No cardiac symptoms (6) Anemia: Hemoglobin remains at 8.5 (7) History of pulmonary embolism: INR is therapeutic at 2.0 We will continue current dose of Coumadin INR is 1.9 on 02/26 and again today (8) Dyslipidemia: Continue statin Chronic abdominal pain and has a mesh to prevent hernia Complaint history of worse for the last few days Denies any distention and/or obstructive symptoms Has been on Protonix 40 mg twice daily Will start that medications while in the hospital CT scan of the abdomen and pelvis did not show any significant findings Likely be discharged today after lunch Subjective 02/24 Patient was seen and examined in medical telemetry unit She was admitted yesterday with the acute exacerbation of asthma Complaining of upper abdominal discomfort/pain for the last 2 months without any obstructive symptoms No fever and chills Denies any shortness of breath at rest 02/25 The patient was seen and examined in medical telemetry unit She complains to have shortness of breath on minimal exertion Does not think that she can go home today Abdominal pain and other symptoms remain stable 02/26 Patient was seen and examined in medical telemetry unit She denies any symptoms at rest Has been complaining of shortness of breath with low saturation with ambulation She will have to do steps O2 saturation before discharge this afternoon 02/27 The patient was seen and examined in medical telemetry unit She has not been any better or any worse Complains to have epigastric fullness and discomfort without nausea and/or vomiting Denies any shortness of breath and/or wheezing at rest Review of Systems Review of Systems: All systems reviewed and are unremarkable except as noted below Constitutional: + weakness; no fever Respiratory: + cough and + dyspnea on exertion Gastrointestinal: + abdominal pain (Upper abdominal discomfort with fullness) and + bloating; no nausea and no vomiting Physical Exam Physical Exam: Lying in bed comfortably Constitutional: well developed, well nourished and + obese; no acute distress and not ill appearing Eyes: PERRL, conjunctivae normal, anicteric sclerae ENMT: external ear and nose normal, oropharynx normal Neck: trachea midline, no thyromegaly Respiratory: normal respiratory effort; no respiratory distress Auscultation: lungs clear to auscultation bilaterally and + wheezes (Very minimal wheezing with expiration) Cardiovascular: Rate/Rhythm: regular rate and regular rhythm Heart Sounds: no murmur Gastrointestinal (Abdomen): Inspection/Auscultation: + abdomen distended (Epigastric fullness) and normal bowel sounds Percussion/Palpation: + abdomen tender (Minimally tender in the epigastrium) and abdomen soft; no guarding Musculoskeletal: No acute arthritis in any of the joints Neurologic: moves all extremities; no focal motor deficits Motor/Sensory: no tremor Psychiatric: A+Ox3, euthymic affect Lymphatic: no cervical or axillary lymphadenopathy Results & Data Vital Signs (Past 12 Hours) Vital Signs Temp Pulse Pulse Pulse Pulse Pulse Resp 02/27/19 13:20 73 16 02/27/19 11:27 36.7 C 68 18 02/27/19 10:10 105 H 86 80 02/27/19 07:27 36.6 C 63 18 02/27/19 07:14 60 14 02/27/19 07:01 57 L 02/27/19 03:56 36.5 C 55 L 19 Resp Resp Resp BP BP Pulse Ox Pulse Ox 02/27/19 13:20 97 02/27/19 11:27 122/78 95 02/27/19 10:10 18 18 16 95 02/27/19 07:27 108/70 98 02/27/19 07:14 98 02/27/19 07:01 02/27/19 03:56 101/66 96 Pulse Ox Pulse Ox 02/27/19 13:20 02/27/19 11:27 02/27/19 10:10 97 94 02/27/19 07:27 02/27/19 07:14 02/27/19 07:01 02/27/19 03:56 Medications Administered Current Inpatient Medications Acetaminophen (Tylenol) 650 mg PO Q4H PRN PRN Reason: Pain or Fever Stop: 03/25/19 22:31 Amoxicillin/Clavulanate Potassium (Augmentin 875mg) 1 tab PO Q12 DESI Stop: 03/02/19 22:31 Last Admin: 02/27/19 08:57 Dose: 1 tab Documented by: Atorvastatin Calcium (Lipitor) 20 mg PO DAILY DESI Stop: 03/26/19 08:59 Last Admin: 02/27/19 08:56 Dose: 20 mg Documented by: Budesonide/Formoterol Fumarate (Symbicort 160mcg/4.5mcg) 2 puffs INH BID DESI Stop: 03/26/19 20:59 Last Admin: 02/27/19 08:54 Dose: 2 puffs Documented by: Clopidogrel Bisulfate (Plavix) 75 mg PO QAM DESI Stop: 03/26/19 08:59 Last Admin: 02/27/19 08:56 Dose: 75 mg Documented by: Cyanocobalamin (Vitamin B-12) 1,000 mcg PO QAM DESI Stop: 03/26/19 08:59 Last Admin: 02/27/19 08:56 Dose: 1,000 mcg Documented by: Docusate Sodium (Colace) 200 mg PO HS DESI Stop: 03/26/19 20:59 Last Admin: 02/26/19 20:49 Dose: 200 mg Documented by: Escitalopram Oxalate (Lexapro Tab) 10 mg PO QAM DESI Stop: 03/26/19 08:59 Last Admin: 02/27/19 08:56 Dose: 10 mg Documented by: Heparin Sodium (Porcine) (Heparin Sod 100 Unit/Ml Flush) 5 ml FLUSH PRN PRN PRN Reason: Flush Stop: 03/27/19 08:15 Last Admin: 02/27/19 10:27 Dose: 5 ml Documented by: Methylprednisolone 40 mg/ (Syringe) 0.64 mls @ 1.5 mls/min IV DAILY DESI Stop: 03/26/19 08:59 Last Admin: 02/27/19 08:57 Dose: 1.5 mls/min Documented by: Promethazine HCl 12.5 mg/ (Sodium Chloride) 50.5 mls @ 202 mls/hr IV Q6H PRN PRN Reason: Nausea And Vomiting Stop: 03/25/19 22:31 Ioversol (Optiray 320 100ml) 93 ml IV ONCE PRN PRN Reason: Interaction Checking Stop: 02/27/19 22:12 Last Admin: 02/23/19 22:13 Dose: 93 ml Documented by: Ipratropium Mcleod (Atrovent 0.02% 0.5mg/2.5ml) 0.5 mg INH Q6R DESI Stop: 03/26/19 00:59 Last Admin: 02/27/19 13:19 Dose: 0.5 mg Documented by: Levalbuterol HCl (Xopenex 1.25mg/0.5ml Neb) 1.25 mg INH Q6R DESI Stop: 03/26/19 00:59 Last Admin: 02/27/19 13:20 Dose: 1.25 mg Documented by: Oxycodone HCl (Roxicodone Immediate Rel) 5 mg PO Q6H PRN PRN Reason: Pain Stop: 03/10/19 01:49 Last Admin: 02/27/19 05:59 Dose: 5 mg Documented by: Pantoprazole Sodium (Protonix) 40 mg PO BID [facility] Stop: 03/26/19 10:29 Last Admin: 02/27/19 08:56 Dose: 40 mg Documented by: Polyethylene Glycol (Miralax Powder Packet) 17 gm PO DAILY PRN PRN Reason: Constipation Stop: 03/25/19 22:31 Sucralfate (Carafate) 1 gm PO QID [facility] Stop: 03/29/19 12:59 Tiotropium Mcleod (Spiriva) 1 puffs INH QAM [facility] Stop: 03/26/19 17:59 Last Admin: 02/27/19 08:55 Dose: 1 puffs Documented by: Tramadol HCl (Ultram) 25 - 50 mg PO Q4H PRN PRN Reason: Pain Stop: 03/25/19 22:31 Last Admin: 02/27/19 08:53 Dose: 50 mg Documented by: Warfarin Sodium (Coumadin) 7.5 mg PO MOWEFR@1600 [facility] Stop: 03/28/19 15:59 Last Admin: 02/26/19 16:02 Dose: 7.5 mg Documented by: Warfarin Sodium (Coumadin) 5 mg PO SUTUTHSA@1600 [facility] Stop: 03/27/19 15:59 Last Admin: 02/25/19 17:57 Dose: 5 mg Documented by: (1) Asthma exacerbation Asthma persistence: persistent Asthma severity: unspecified severity Qualified Code(s): J45.901 - Unspecified asthma with (acute) exacerbation
[2019-02-27] MEDS: SUCRALFATE 1 GM/10 ML UDC PO SCH ×3 (14:42→21:46)
[2019-02-27] MEDS: ACETAMINOPHEN 1,000 MG/100 ML VIAL IV PRN (17:04)
[2019-02-27] MEDS: WARFARIN SOD 5 MG TAB PO SCH (17:05)
[2019-02-27] MEDS: DOCUSATE SODIUM 100 MG CAP PO SCH (21:50)
[2019-02-28] MEDS: LEVALBUTEROL 1.25MG/0.5ML NEB INH SCH ×4 (00:21→20:07)
[2019-02-28] MEDS: IPRATROPIUM BROMIDE NEB SOLN 0.02% 2.5 ML VIAL INH SCH ×4 (00:21→20:07)
[2019-02-28] MEDS: TRAMADOL HCL 50 MG TABLET PO PRN ×2 (01:13→12:15)
[2019-02-28] MEDS: ACETAMINOPHEN 1,000 MG/100 ML VIAL IV PRN ×2 (06:31→19:57)
[2019-02-28] MEDS: OXYCODONE HCL IR 5 MG TAB (IMMEDIATE RELEASE) PO PRN ×3 (08:02→23:53)
[2019-02-28] MEDS: BUDESONIDE/FORMOTEROL FUMARATE 160/4.5 60 PUFFS/INHALER INH SCH ×2 (08:03→21:14)
[2019-02-28] MEDS: HEPARIN 100 UNIT/ML 5ML FLUSH FLUSH PRN ×3 (08:03→08:49)
[2019-02-28] MEDS: methylPREDNISolone 40 MG in SYRINGE 0 ML IV SCH (08:03)
[2019-02-28] MEDS: TIOTROPIUM BROMIDE 5 PUFF/90 MCG INH INH SCH (08:03)
[2019-02-28] MEDS: CYANOCOBALAMIN 500 MCG TABLET (VITAMIN B-12) PO SCH (08:04)
[2019-02-28] MEDS: CLOPIDOGREL BISULFATE 75 MG TAB PO SCH (08:04)
[2019-02-28] MEDS: PANTOprazole 40 MG TAB PO SCH ×2 (08:04→21:14)
[2019-02-28] MEDS: ESCITALOPRAM OXALATE 10 MG TAB PO SCH (08:04)
[2019-02-28] MEDS: SUCRALFATE 1 GM/10 ML UDC PO SCH ×4 (08:05→21:14)
[2019-02-28] MEDS: ATORVASTATIN 20 MG TAB PO SCH (08:05)
[2019-02-28] MEDS: AMOXICILLIN/CLAVULANATE 875 MG TAB PO SCH ×2 (08:06→21:14)
[2019-02-28 08:36] LABS: Prothrombin Time 19.8 Seconds (9.0-12.0)
--- NOTE | 2019-02-28 09:26 | Pulmonology Progress Note ---
Date of Service February 28, 2019 Assessment & Plan (1) Acute on chronic respiratory failure with hypoxia: Impression: 58-year-old female with advanced obstructive lung disease. She was admitted with decrease in her peak flows. She is not profoundly bronchospastic currently but does report increasing shortness of breath largely related to a feeling of midepigastric fullness which prevents her from taking a deep breath. She was reassured that her chest x-ray and CT scan are unremarkable. She feels about the same and does not feel ready for discharge as of yet. Recommendations: 1. Severe obstructive lung disease: Continue bronchodilators in the form of Symbicort and Spiriva as well as as needed albuterol. Outpatient follow-up with repeat pulmonary function tests and assessment of exhaled nitric oxide may be beneficial. Seems reasonable to continue prednisone and oral Augmentin to complete course. 2. Hypoxemic respiratory failure, acute on chronic: Now resolved 3. History of thromboembolic disease: Anticoagulated on Coumadin. 4. History of sleep disordered breathing: Continue nightly CPAP. The patient's pulmonary issues have resolved and she is stable for discharge from a pulmonary perspective. Additional work-up of her other complaints per the admitting service. She should follow-up with Dr. Kim and ROSI Birch in the pulmonary clinic Pulmonary will sign off. Please reconsult if we can be of additional help regarding her pulmonary issue (2) Asthma exacerbation: Asthma persistence: persistent Asthma severity: unspecified severity Qualified Code(s): J45.901 - Unspecified asthma with (acute) exacerbation (3) Heterozygous alpha 1-antitrypsin deficiency: Subjective Patient seen and examined. As per the patient will be discharged yesterday so did not see her. She states that from a respiratory standpoint she is doing quite well. Her issues are resolved and she feels from a respiratory standpoint she is able to go home. However she continues to have issues with abdominal discomfort. She complains of feeling a masslike sensation in her left upper quadrant. She states the pain is problematic and inhibits her ability to take a deep breath. She is concerned that this may result in respiratory compromise if it is not addressed. She inquires about the possibility of getting an MRI as she has had significant mesh implanted previously. CT and laboratory studies have been unrevealing. She continues to have pain issues which is her primary concern currently. Physical Exam Physical Exam: GENERAL : No acute distress. Talking in full sentences without dyspnea EYES: No icterus, gaze conjugate NOSE: No evidence of epistaxis MOUTH: No lesions or candidiasis. Mucosa moist. Upper and lower dentures in place. NECK: Supple LUNGS: Decreased breath sounds globally. Expiratory wheezes noted in posterior lung mccain as well as upper anterior lung mccain. No rhonchi or crackles appreciated HEART: Regular, rate controlled. No appreciation of murmurs gallops or rubs. ABDOMEN: Soft, NT, ND, BS Present EXTREMITIES: No LE edema, pedal pulses intact and equal bilaterally. NEURO: A&OX3. Results & Data Vital Signs (Past 12 Hours) Vital Signs Temp Pulse Pulse Resp BP BP Pulse Ox 02/28/19 07:19 57 L 18 97 02/28/19 07:00 37.0 C 61 18 127/78 97 02/28/19 00:45 62 02/28/19 00:23 87 78 16 98 02/27/19 23:34 36.6 C 63 16 116/65 94 Laboratory Results 02/24/19 05:55 02/24/19 05:55 Diagnostic Findings No new imaging PG Care Time/CCT Total # of Minutes Spent Total Time Spent with Patient: Total time spent is greater than 50% in coordination of care (as documented) at patient's floor/unit and/or counseling patient:
--- NOTE | 2019-02-28 12:39 | Ultrasound Report ---
ABDOMINAL ULTRASOUND, RIGHT UPPER QUADRANT HISTORY: R/O Hepatosplenomegaly. COMPARISON: Abdomen and pelvis CT 02/23/2019. FINDINGS: Pancreas: The pancreatic tail is obscured by overlying bowel gas. The remaining portions of the pancr eas are within normal limits. Liver: Unremarkable. 16 cm in length. Gallbladder: The gallbladder is surgically absent. CBD: 7 mm. This is likely within the range of normal limits given the patient's postcholecystectomy s burgess. Right kidney: No hydronephrosis. Spleen: 10.5 cm in length. There is a 1.1 cm echogenic focus within the spleen. This is technically i ndeterminate by ultrasound but favors a hemangioma. IMPRESSION: 1. The liver and spleen are normal in size. 2. Cholecystectomy. 3. A 1.1 cm echogenic focus within the spleen. This is technically indeterminate by ultrasound but fa vors a hemangioma. Electronically signed by: Milton Gonzalez M.D. 02/28/2019 12:38 PM
--- NOTE | 2019-02-28 13:10 | Hospitalist Progress Note ---
Date of Service February 28, 2019 Assessment & Plan (1) Acute on chronic respiratory failure with hypoxia: Secondary to asthma exacerbation complicated by heterozygous alpha 1 antitrypsin deficiency and sleep apnea CT of the chest showed old healed rib fractures and remote T9 compression defo rmities, minimal patchy groundglass opacities of the apical segment of the right upper lobe suspicious for infectious and/or inflammatory pneumonitis. Clinically better saturating well with nasal cannula oxygen Feeling a little bit better but not ready to be discharged Advised to ambulate more in the hallway Remains stable but feels that she is not yet ready to be discharged No shortness of breath at rest Complaints to have chronic epigastric discomfort with fullness and pain Sucralfate will be added on top of Protonix twice daily Advised more ambulation Discharge tomorrow following to do steps O2 saturation test (2) Asthma exacerbation: This is a 58yo F with a PMH of severe asthma on chronic steroids, heterozygous alpha 1-antitrypsin deficiency, XIAO on CPAP at bedtime with 2 L nasal cannula O2, CAD (s/p stent), CHF, history of PE on Coumadin and other medical problems listed below who presents with worsening shortness of breath over the past few days was found to have acute on chronic respiratory failure with hypoxia and asthma exacerbation. Has been on intravenous Solu-Medrol and nebulized bronchodilators Oxygen supplementation at visit Has been on Augmentin as an outpatient and will finish the course Feeling better but complains to have some upper abdominal discomfort which seems to be chronic Appreciate pulmonary input and recommendation We will continue current management Clinically bit better today Complaints of shortness of breath on minimal exertion Advised more ambulation No shortness of breath at rest and wheezing has almost disappeared No shortness of breath at rest (3) Hypokalemia: Potassium level is corrected (4) Chronic diastolic heart failure: No evidence of acute CHF and no fluid overload Will restart her home dose of furosemide We will continue her current dose of diuretic (5) CAD (coronary artery disease): Denies any acute cardiac symptoms Status post cardiac cath in October of this year: Impression: Mildly elevated pulmonary artery pressures Normal left ventricular filling pressure Widely patent stent in the left circumflex artery No change in the right coronary stenosis previously documented on 08/11/2018 Normal cardiac output No evidence of aortic stenosis No cardiac symptoms (6) Anemia: Hemoglobin remains at 8.5 (7) History of pulmonary embolism: INR is therapeutic at 2.0 We will continue current dose of Coumadin INR is 2.0 110/20 (8) Dyslipidemia: Continue statin Chronic abdominal pain and has a mesh to prevent hernia Complaint history of worse for the last few days Denies any distention and/or obstructive symptoms Has been on Protonix 40 mg twice daily Will start that medications while in the hospital CT scan of the abdomen and pelvis did not show any significant findings Likely be discharged today after lunch Ultrasound of the abdomen did not show any hepatosplenomegaly, 1.1 cm dilation in the spleen is likely due to hemangioma Subjective 02/24 Patient was seen and examined in medical telemetry unit She was admitted yesterday with the acute exacerbation of asthma Complaining of upper abdominal discomfort/pain for the last 2 months without any obstructive symptoms No fever and chills Denies any shortness of breath at rest 02/25 The patient was seen and examined in medical telemetry unit She complains to have shortness of breath on minimal exertion Does not think that she can go home today Abdominal pain and other symptoms remain stable 02/26 Patient was seen and examined in medical telemetry unit She denies any symptoms at rest Has been complaining of shortness of breath with low saturation with ambulation She will have to do steps O2 saturation before discharge this afternoon 02/27 The patient was seen and examined in medical telemetry unit She has not been any better or any worse Complains to have epigastric fullness and discomfort without nausea and/or vomit ing Denies any shortness of breath and/or wheezing at rest 02/28 The patient was seen and examined in medical floor She has been feeling better except epigastric fullness and discomfort She is worried about having splenomegaly and things that may be her cause for discomfort No shortness of breath at rest Review of Systems Review of Systems: All systems reviewed and are unremarkable except as noted below Constitutional: + weakness; no fever Respiratory: + cough and + dyspnea on exertion Gastrointestinal: + abdominal pain (Upper abdominal discomfort with fullness) and + bloating; no nausea and no vomiting Physical Exam Physical Exam: Lying in bed doubt any acute Constitutional: well developed, well nourished and + obese; no acute distress and not ill appearing Eyes: PERRL, conjunctivae normal, anicteric sclerae ENMT: external ear and nose normal, oropharynx normal Neck: trachea midline, no thyromegaly Respiratory: normal respiratory effort; no respiratory distress Auscultation: lungs clear to auscultation bilaterally and + diminished lung sounds; no crackles and no wheezes Cardiovascular: Rate/Rhythm: regular rate and regular rhythm Heart Sounds: no murmur Gastrointestinal (Abdomen): Inspection/Auscultation: normal bowel sounds Percussion/Palpation: + abdomen tender (Minimally tender in the epigastrium) and abdomen soft; no guarding Neurologic: moves all extremities; no focal motor deficits Motor/Sensory: no tremor Psychiatric: A+Ox3, euthymic affect Lymphatic: no cervical or axillary lymphadenopathy Results & Data Vital Signs (Past 12 Hours) Vital Signs Temp Pulse Pulse Resp BP BP Pulse Ox 02/28/19 11:00 36.5 C 65 19 134/74 92 02/28/19 09:38 37.0 C 57 L 18 116/65 127/78 97 02/28/19 08:00 58 L 02/28/19 07:19 57 L 18 97 02/28/19 07:00 37.0 C 61 18 127/78 97 Medications Administered Current Inpatient Medications Acetaminophen (Tylenol) 650 mg PO Q4H PRN PRN Reason: Pain or Fever Stop: 03/25/19 22:31 Amoxicillin/Clavulanate Potassium (Augmentin 875mg) 1 tab PO Q12 DESI Stop: 03/02/19 22:31 Last Admin: 02/28/19 08:06 Dose: 1 tab Documented by: Atorvastatin Calcium (Lipitor) 20 mg PO DAILY DESI Stop: 03/26/19 08:59 Last Admin: 02/28/19 08:05 Dose: 20 mg Documented by: Budesonide/Formoterol Fumarate (Symbicort 160mcg/4.5mcg) 2 puffs INH BID DESI Stop: 03/26/19 20:59 Last Admin: 02/28/19 08:03 Dose: 2 puffs Documented by: Clopidogrel Bisulfate (Plavix) 75 mg PO QAM DESI Stop: 03/26/19 08:59 Last Admin: 02/28/19 08:04 Dose: 75 mg Documented by: Cyanocobalamin (Vitamin B-12) 1,000 mcg PO QAM DESI Stop: 03/26/19 08:59 Last Admin: 02/28/19 08:04 Dose: 1,000 mcg Documented by: Docusate Sodium (Colace) 200 mg PO HS DESI Stop: 03/26/19 20:59 Last Admin: 02/27/19 21:50 Dose: 200 mg Documented by: Escitalopram Oxalate (Lexapro Tab) 10 mg PO QAM DESI Stop: 03/26/19 08:59 Last Admin: 02/28/19 08:04 Dose: 10 mg Documented by: Heparin Sodium (Porcine) (Heparin Sod 100 Unit/Ml Flush) 5 ml FLUSH PRN PRN PRN Reason: Flush Stop: 03/27/19 08:15 Last Admin: 02/28/19 08:49 Dose: 5 ml Documented by: Methylprednisolone 40 mg/ (Syringe) 0.64 mls @ 1.5 mls/min IV DAILY DESI Stop: 03/26/19 08:59 Last Admin: 02/28/19 08:03 Dose: 1.5 mls/min Documented by: Promethazine HCl 12.5 mg/ (Sodium Chloride) 50.5 mls @ 202 mls/hr IV Q6H PRN PRN Reason: Nausea And Vomiting Stop: 03/25/19 22:31 Acetaminophen (Ofirmev) 1,000 mg in 100 mls @ 400 mls/hr IV Q8H PRN PRN Reason: Pain Stop: 03/29/19 15:48 Last Infusion: 02/28/19 07:05 Dose: Infused Documented by: Ipratropium Roscoe (Atrovent 0.02% 0.5mg/2.5ml) 0.5 mg INH Q6R DESI Stop: 03/26/19 00:59 Last Admin: 02/28/19 07:19 Dose: 0.5 mg Documented by: Levalbuterol HCl (Xopenex 1.25mg/0.5ml Neb) 1.25 mg INH Q6R DESI Stop: 03/26/19 00:59 Last Admin: 02/28/19 07:19 Dose: 1.25 mg Documented by: Oxycodone HCl (Roxicodone Immediate Rel) 5 mg PO Q6H PRN PRN Reason: Pain Stop: 03/10/19 01:49 Last Admin: 02/28/19 08:02 Dose: 5 mg Documented by: Pantoprazole Sodium (Protonix) 40 mg PO BID DESI Stop: 03/26/19 10:29 Last Admin: 02/28/19 08:04 Dose: 40 mg Documented by: Polyethylene Glycol (Miralax Powder Packet) 17 gm PO DAILY PRN PRN Reason: Constipation Stop: 03/25/19 22:31 Sucralfate (Carafate) 1 gm PO QID [facility] Stop: 03/29/19 12:59 Last Admin: 02/28/19 12:13 Dose: 1 gm Documented by: Tiotropium Roscoe (Spiriva) 1 puffs INH QAM [facility] Stop: 03/26/19 17:59 Last Admin: 02/28/19 08:03 Dose: 1 puffs Documented by: Tramadol HCl (Ultram) 25 - 50 mg PO Q4H PRN PRN Reason: Pain Stop: 03/25/19 22:31 Last Admin: 02/28/19 12:15 Dose: 50 mg Documented by: Warfarin Sodium (Coumadin) 7.5 mg PO MOWEFR@1600 [facility] Stop: 03/28/19 15:59 Last Admin: 02/26/19 16:02 Dose: 7.5 mg Documented by: Warfarin Sodium (Coumadin) 5 mg PO SUTUTHSA@1600 [facility] Stop: 03/27/19 15:59 Last Admin: 02/27/19 17:05 Dose: 5 mg Documented by: (1) Asthma exacerbation Asthma persistence: persistent Asthma severity: unspecified severity Qualified Code(s): J45.901 - Unspecified asthma with (acute) exacerbation
[2019-02-28] MEDS: WARFARIN SOD 5 MG TAB PO SCH (16:17)
[2019-02-28] MEDS: DOCUSATE SODIUM 100 MG CAP PO SCH (21:13)
[2019-03-01] MEDS: IPRATROPIUM BROMIDE NEB SOLN 0.02% 2.5 ML VIAL INH SCH ×4 (01:33→19:27)
[2019-03-01] MEDS: LEVALBUTEROL 1.25MG/0.5ML NEB INH SCH ×4 (01:33→19:27)
[2019-03-01] MEDS: HEPARIN 100 UNIT/ML 5ML FLUSH FLUSH PRN ×4 (06:12→18:57)
[2019-03-01] MEDS: OXYCODONE HCL IR 5 MG TAB (IMMEDIATE RELEASE) PO PRN ×3 (06:20→21:21)
[2019-03-01 06:39] LABS: Hematocrit (blood only) 33.1 % (37-47); Hemoglobin 9.4 g/dL (12.0-16.0); Mean Corpuscular Hgb Conc 28.4 g/dL (32-36); Mean Corpuscular Volume 81.1 fL (80-100); Mean Platelet Volume 10.2 fL (7.4-10.4); Platelet Count 269 K/uL (130-400); RDW Coefficient of Variation 23.2 % (11.5-14.5); RDW Standard Deviation 58.5 fL (36.4-46.3); Red Blood Count 4.08 M/uL (4.2-5.4); White Blood Count 10.89 K/uL (4.8-10.8)
[2019-03-01 06:50] LABS: Prothrombin Time 19.8 Seconds (9.0-12.0)
[2019-03-01 07:12] LABS: BUN Creatinine Ratio 17.8 (10-20); Calcium 8.7 mg/dl (8.5-10.1); Creatinine Clr Calc Pharmacy 83.4 ml/min; Est GFR (Non-African American) 81.9; Potassium 4.2 mmol/L (3.5-5.1)
[2019-03-01 07:30] LABS: Anisocytosis Present; Basophils # (auto) 0.03 K/uL (0-0.2); Basophils % (auto) 0.3 %; Eosinophils # (auto) 0.16 K/uL (0-0.5); Eosinophils % (auto) 1.5 %; Hypochromasia Present; Immature Granulocytes # (auto) 0.09 K/uL (0.00-0.02); Immature Granulocytes % (auto) 0.8 %; Lymphocytes # (auto) 3.29 K/uL (1.2-3.4); Lymphocytes % (auto) 30.2 %; Monocytes # (auto) 0.73 K/uL (0.11-0.59); Monocytes % (auto) 6.7 %; Neutrophils # (auto) 6.59 K/uL (1.4-6.5); Neutrophils % (auto) 60.5 %; Ovalocytes 1+; Tear Drop Cells 1+
[2019-03-01] MEDS: methylPREDNISolone 40 MG in SYRINGE 0 ML IV SCH (08:28)
[2019-03-01] MEDS: TIOTROPIUM BROMIDE 5 PUFF/90 MCG INH INH SCH (08:29)
[2019-03-01] MEDS: ATORVASTATIN 20 MG TAB PO SCH (08:29)
[2019-03-01] MEDS: CYANOCOBALAMIN 500 MCG TABLET (VITAMIN B-12) PO SCH (08:30)
[2019-03-01] MEDS: PANTOprazole 40 MG TAB PO SCH ×2 (08:30→21:18)
[2019-03-01] MEDS: AMOXICILLIN/CLAVULANATE 875 MG TAB PO SCH ×2 (08:30→21:18)
[2019-03-01] MEDS: SUCRALFATE 1 GM/10 ML UDC PO SCH ×4 (08:30→21:18)
[2019-03-01] MEDS: ESCITALOPRAM OXALATE 10 MG TAB PO SCH (08:30)
[2019-03-01] MEDS: CLOPIDOGREL BISULFATE 75 MG TAB PO SCH (08:30)
[2019-03-01] MEDS: BUDESONIDE/FORMOTEROL FUMARATE 160/4.5 60 PUFFS/INHALER INH SCH ×2 (08:31→21:19)
[2019-03-01] MEDS: ACETAMINOPHEN 1,000 MG/100 ML VIAL IV PRN ×2 (08:53→18:33)
[2019-03-01] MEDS ORDERED: IRON SUCROSE 200 MG in 0.9 % SODIUM CHLORIDE 100 ML IV SCH (09:00)
--- NOTE | 2019-03-01 12:23 | Hospitalist Progress Note ---
Date of Service March 01, 2019 Assessment & Plan (1) Acute on chronic respiratory failure with hypoxia: Secondary to asthma exacerbation complicated by heterozygous alpha 1 antitrypsin deficiency and sleep apnea CT of the chest showed old healed rib fractures and remote T9 compression defo rmities, minimal patchy groundglass opacities of the apical segment of the right upper lobe suspicious for infectious and/or inflammatory pneumonitis. Clinically better saturating well with nasal cannula oxygen Feeling a little bit better but not ready to be discharged Advised to ambulate more in the hallway Remains stable but feels that she is not yet ready to be discharged No shortness of breath at rest Complaints to have chronic epigastric discomfort with fullness and pain Sucralfate will be added on top of Protonix twice daily Advised more ambulation Clinically not better today We will get to do steps O2 saturation before discharge this afternoon (2) Asthma exacerbation: This is a 58yo F with a PMH of severe asthma on chronic steroids, heter ozygous alpha 1-antitrypsin deficiency, XIAO on CPAP at bedtime with 2 L nasal cannula O2, CAD (s/p stent), CHF, history of PE on Coumadin and other medical problems listed below who presents with worsening shortness of breath over the past few days was found to have acute on chronic respiratory failure with hypoxia and asthma exacerbation. Has been on intravenous Solu-Medrol and nebulized bronchodilators Oxygen supplementation at visit Has been on Augmentin as an outpatient and will finish the course Feeling better but complains to have some upper abdominal discomfort which seems to be chronic Appreciate pulmonary input and recommendation We will continue current management Clinically bit better today Complaints of shortness of breath on minimal exertion Advised more ambulation No shortness of breath at rest and wheezing has almost disappeared No shortness of breath at rest As above we will taper steroid slowly (3) Hypokalemia: Potassium level is corrected (4) Chronic diastolic heart failure: No evidence of acute CHF and no fluid overload Will restart her home dose of furosemide We will continue her current dose of diuretic (5) CAD (coronary artery disease): Denies any acute cardiac symptoms Status post cardiac cath in October of this year: Impression: Mildly elevated pulmonary artery pressures Normal left ventricular filling pressure Widely patent stent in the left circumflex artery No change in the right coronary stenosis previously documented on 08/11/2018 Normal cardiac output No evidence of aortic stenosis No cardiac symptoms (6) Anemia: Hemoglobin remains at 8.5 (7) History of pulmonary embolism: INR is therapeutic at 2.0 We will continue current dose of Coumadin INR is 2.0 and on 03/01 (8) Dyslipidemia: Continue statin Chronic abdominal pain and has a mesh to prevent hernia Complaint history of worse for the last few days Denies any distention and/or obstructive symptoms Has been on Protonix 40 mg twice daily Will start that medications while in the hospital CT scan of the abdomen and pelvis did not show any significant findings Likely be discharged today after lunch Ultrasound of the abdomen did not show any hepatosplenomegaly, 1.1 cm dilation in the spleen is likely due to hemangioma Advised to keep appointment with her general surgeon at [facility] 02/24 Patient was seen and examined in medical telemetry unit She was admitted yesterday with the acute exacerbation of asthma Complaining of upper abdominal discomfort/pain for the last 2 months without any obstructive symptoms No fever and chills Denies any shortness of breath at rest 02/25 The patient was seen and examined in medical telemetry unit She complains to have shortness of breath on minimal exertion Does not think that she can go home today Abdominal pain and other symptoms remain stable 02/26 Patient was seen and examined in medical telemetry unit She denies any symptoms at rest Has been complaining of shortness of breath with low saturation with ambulation She will have to do steps O2 saturation before discharge this afternoon 02/27 The patient was seen and examined in medical telemetry unit She has not been any better or any worse Complains to have epigastric fullness and discomfort without nausea and/or vomiting Denies any shortness of breath and/or wheezing at rest 02/28 The patient was seen and examined in medical floor She has been feeling better except epigastric fullness and discomfort She is worried about having splenomegaly and things that may be her cause for discomfort No shortness of breath at rest 03/01 The patient was seen and examined in medical floor She has been a lot better today Minimal epigastric pain Minimal shortness of breath with ambulate Will get to do steps O2 saturation before discharge this afternoon Review of Systems Review of Systems: All systems reviewed and are unremarkable except as noted below Constitutional: + weakness; no fever Respiratory: + cough and + dyspnea on exertion Gastrointestinal: + abdominal pain (Upper abdominal discomfort with fullness) and + bloating; no nausea and no vomiting Physical Exam Physical Exam: Lying in bed without any acute discomfort Constitutional: well developed, well nourished and + obese; no acute distress and not ill appearing Eyes: PERRL, conjunctivae normal, anicteric sclerae ENMT: external ear and nose normal, oropharynx normal Neck: trachea midline, no thyromegaly Respiratory: normal respiratory effort; no respiratory distress Auscultation: lungs clear to auscultation bilaterally and + diminished lung sounds Cardiovascular: Rate/Rhythm: regular rate and regular rhythm Heart Sounds: no murmur Gastrointestinal (Abdomen): Inspection/Auscultation: normal bowel sounds Percussion/Palpation: + abdomen tender (Minimally tender in the epigastrium) and abdomen soft; no guarding Musculoskeletal: No acute arthritis in any of the joints Neurologic: moves all extremities; no focal motor deficits Motor/Sensory: no tremor Psychiatric: A+Ox3, euthymic affect Lymphatic: no cervical or axillary lymphadenopathy Results & Data Vital Signs (Past 12 Hours) Vital Signs Temp Pulse Pulse Resp BP Pulse Ox 03/01/19 11:45 36.5 C 61 20 151/78 H 93 03/01/19 07:51 36.6 C 61 18 123/66 96 03/01/19 07:14 20 96 03/01/19 07:13 61 20 96 03/01/19 07:00 56 L 03/01/19 04:37 36.6 C 56 L 20 109/63 94 03/01/19 01:34 59 L 18 94 Laboratory Results Short CBC 03/01/19 Range/Units 06:12 WBC 10.89 H (4.8-10.8) K/uL Hgb 9.4 L (12.0-16.0) g/dL Hct 33.1 L (37-47) % Plt Count 269 (130-400) K/uL BMP 03/01/19 06:12 Sodium 142 Potassium 4.2 Chloride 105 Carbon Dioxide 33 H BUN 14 Creatinine 0.79 Glucose 78 Calcium 8.7 Medications Administered Current Inpatient Medications Acetaminophen (Tylenol) 650 mg PO Q4H PRN PRN Reason: Pain or Fever Stop: 03/25/19 22:31 Amoxicillin/Clavulanate Potassium (Augmentin 875mg) 1 tab PO Q12 DESI Stop: 03/02/19 22:31 Last Admin: 03/01/19 08:30 Dose: 1 tab Documented by: Atorvastatin Calcium (Lipitor) 20 mg PO DAILY DESI Stop: 03/26/19 08:59 Last Admin: 03/01/19 08:29 Dose: 20 mg Documented by: Budesonide/Formoterol Fumarate (Symbicort 160mcg/4.5mcg) 2 puffs INH BID DESI Stop: 03/26/19 20:59 Last Admin: 03/01/19 08:31 Dose: 2 puffs Documented by: Clopidogrel Bisulfate (Plavix) 75 mg PO QAM DESI Stop: 03/26/19 08:59 Last Admin: 03/01/19 08:30 Dose: 75 mg Documented by: Cyanocobalamin (Vitamin B-12) 1,000 mcg PO QAM DESI Stop: 03/26/19 08:59 Last Admin: 03/01/19 08:30 Dose: 1,000 mcg Documented by: Docusate Sodium (Colace) 200 mg PO HS DESI Stop: 03/26/19 20:59 Last Admin: 02/28/19 21:13 Dose: 200 mg Documented by: Escitalopram Oxalate (Lexapro Tab) 10 mg PO QAM DESI Stop: 03/26/19 08:59 Last Admin: 03/01/19 08:30 Dose: 10 mg Documented by: Heparin Sodium (Porcine) (Heparin Sod 100 Unit/Ml Flush) 5 ml FLUSH PRN PRN PRN Reason: Flush Stop: 03/27/19 08:15 Last Admin: 03/01/19 10:02 Dose: 5 ml Documented by: Methylprednisolone 40 mg/ (Syringe) 0.64 mls @ 1.5 mls/min IV DAILY DESI Stop: 03/26/19 08:59 Last Admin: 03/01/19 08:28 Dose: 1.5 mls/min Documented by: Promethazine HCl 12.5 mg/ (Sodium Chloride) 50.5 mls @ 202 mls/hr IV Q6H PRN PRN Reason: Nausea And Vomiting Stop: 03/25/19 22:31 Acetaminophen (Ofirmev) 1,000 mg in 100 mls @ 400 mls/hr IV Q8H PRN PRN Reason: Pain Stop: 03/29/19 15:48 Last Infusion: 03/01/19 09:08 Dose: Infused Documented by: Iron Sucrose 200 mg/ Sodium (Chloride) 110 mls @ 220 mls/hr IV TODAY@0900 [facility] Stop: 03/01/19 16:00 Last Infusion: 03/01/19 09:58 Dose: Infused Documented by: Ipratropium [place] (Atrovent 0.02% 0.5mg/2.5ml) 0.5 mg INH Q6R [facility] Stop: 03/26/19 00:59 Last Admin: 03/01/19 07:10 Dose: 0.5 mg Documented by: Levalbuterol HCl (Xopenex 1.25mg/0.5ml Neb) 1.25 mg INH Q6R [facility] Stop: 03/26/19 00:59 Last Admin: 03/01/19 07:10 Dose: 1.25 mg Documented by: Oxycodone HCl (Roxicodone Immediate Rel) 5 mg PO Q6H PRN PRN Reason: Pain Stop: 03/10/19 01:49 Last Admin: 03/01/19 06:20 Dose: 5 mg Documented by: Pantoprazole Sodium (Protonix) 40 mg PO BID [facility] Stop: 03/26/19 10:29 Last Admin: 03/01/19 08:30 Dose: 40 mg Documented by: Polyethylene Glycol (Miralax Powder Packet) 17 gm PO DAILY PRN PRN Reason: Constipation Stop: 03/25/19 22:31 Sucralfate (Carafate) 1 gm PO QID [facility] Stop: 03/29/19 12:59 Last Admin: 03/01/19 08:30 Dose: 1 gm Documented by: Tiotropium [place] (Spiriva) 1 puffs INH QAM [facility] Stop: 03/26/19 17:59 Last Admin: 03/01/19 08:29 Dose: 1 puffs Documented by: Tramadol HCl (Ultram) 25 - 50 mg PO Q4H PRN PRN Reason: Pain Stop: 03/25/19 22:31 Last Admin: 02/28/19 12:15 Dose: 50 mg Documented by: Warfarin Sodium (Coumadin) 7.5 mg PO MOWEFR@1600 [facility] Stop: 03/28/19 15:59 Last Admin: 02/26/19 16:02 Dose: 7.5 mg Documented by: Warfarin Sodium (Coumadin) 5 mg PO SUTUTHSA@1600 [facility] Stop: 03/27/19 15:59 Last Admin: 02/28/19 16:17 Dose: 5 mg Documented by: (1) Asthma exacerbation Asthma persistence: persistent Asthma severity: unspecified severity Qualified Code(s): J45.901 - Unspecified asthma with (acute) exacerbation
[2019-03-01] MEDS: PROMETHAZINE HCL 12.5 MG in SODIUM CHLORIDE 0.9% 50 ML IV PRN (14:54)
[2019-03-01] MEDS ORDERED: DICYCLOMINE HCL 10 MG CAP PO PRN (15:39)
[2019-03-01] MEDS ORDERED: WARFARIN SOD 7.5 MG TAB PO SCH (16:00)
[2019-03-01] MEDS: DOCUSATE SODIUM 100 MG CAP PO SCH (21:21)
[2019-03-01] MEDS: TRAMADOL HCL 50 MG TABLET PO PRN (23:47)
[2019-03-02] MEDS: PROMETHAZINE HCL 12.5 MG in SODIUM CHLORIDE 0.9% 50 ML IV PRN ×2 (00:25→09:31)
[2019-03-02] MEDS: HEPARIN 100 UNIT/ML 5ML FLUSH FLUSH PRN ×3 (00:46→10:20)
[2019-03-02] MEDS: LEVALBUTEROL 1.25MG/0.5ML NEB INH SCH ×4 (01:30→19:04)
[2019-03-02] MEDS: IPRATROPIUM BROMIDE NEB SOLN 0.02% 2.5 ML VIAL INH SCH ×4 (01:30→19:04)
[2019-03-02] MEDS: ACETAMINOPHEN 1,000 MG/100 ML VIAL IV PRN ×2 (03:28→13:03)
[2019-03-02] MEDS: methylPREDNISolone 40 MG in SYRINGE 0 ML IV SCH (08:57)
[2019-03-02] MEDS: SUCRALFATE 1 GM/10 ML UDC PO SCH ×4 (08:59→19:39)
[2019-03-02] MEDS: TIOTROPIUM BROMIDE 5 PUFF/90 MCG INH INH SCH (09:01)
[2019-03-02] MEDS: BUDESONIDE/FORMOTEROL FUMARATE 160/4.5 60 PUFFS/INHALER INH SCH ×2 (09:03→19:39)
[2019-03-02] MEDS: ESCITALOPRAM OXALATE 10 MG TAB PO SCH (09:04)
[2019-03-02] MEDS: AMOXICILLIN/CLAVULANATE 875 MG TAB PO SCH ×2 (09:05→19:40)
[2019-03-02] MEDS: OXYCODONE HCL IR 5 MG TAB (IMMEDIATE RELEASE) PO PRN ×2 (09:06→15:52)
[2019-03-02] MEDS: ATORVASTATIN 20 MG TAB PO SCH (09:07)
[2019-03-02] MEDS: CLOPIDOGREL BISULFATE 75 MG TAB PO SCH (09:08)
[2019-03-02] MEDS: CYANOCOBALAMIN 500 MCG TABLET (VITAMIN B-12) PO SCH (09:10)
[2019-03-02] MEDS: PANTOprazole 40 MG TAB PO SCH ×2 (09:11→19:39)
--- NOTE | 2019-03-02 10:14 | Gastrointestinal Consultation ---
Date of Consultation March 02, 2019 Assessment & Plan (1) Epigastric abdominal pain: (2) Early satiety: (3) Abdominal bloating: Pt is a 58 y/o female seen for epigastric abd pain, bloating and early fullness. She has hx of GERD but controlled w current antiacid. She denies bowel habit changes. Abd imaging w CT and u/s w/o acute findings. She had been seen at [facility] earlier this month and offered EGD but she refused then. Agreeable to this now. She had been referred to Surgery to discuss possible adhesions causing her pain as she's had significant abd surgeries w also mesh placement. - Continue Protonix as dosed - May try Dicyclomine on PRN basis for abd pain - Will help set up EGD in outpt setting (she is currently on Coumadin, need held at least 5 days prior to EGD) to r/o PUD, gastritis, Hpylori - Will help schedule outpt gastric emptying study to r/o gastroparesis (diabetic) - Keep Surgery appt at [facility] on 03/16/19 - GI to sign off; pls recall prn Supervising Physician Co-Signing Physician Notes I have personally seen and examined the patient with CRISTOPHER Mahajan. Her note reflects my examination and findings. I agree with her impression and plan. Symptoms most c/w issues related to adhesions. She has out patient evaluation already arranged. Arvin Schmitz M.D. History of Present Illness Reason for Consultation: Dyspepsia, epigastric abd pain Requesting Physician: Dr. Travis tan Attending Physician: Dr. Arivn Schmitz History of Present Illness Pt is a 58 y/o currently admitted for asthma exacerbation currently seen for epigastric pain, dyspepsia. Pt reports having epigastric pain since December 2018. Described the pain as having pressure like sensation and feeling full. When she eats, she described a "rolling" sensation in stomach. Mild nausea but no vomiting. She feels the pressure makes it hard for her to take deep breath at times. Denies any increased heartburn/reflux symptoms on Protonix. Also denies any bowel habit changes. She has hx of multiple abdominal surgeries including diverticulitis perforation, colostomy, mesh for hernia repair. Her imaging studies while admitted w CT and u/s are w/o acute inflammatory or obstructive bowel issues. LFTs are normal. Pt had been seen at [facility] by Sheila Garza PA-C on 02/10/19 for the above complaints. Offered EGD eval but pt had wanted to defer at that time. Pt suspect pain may be related to her mesh and wanted Surgical evaluation for possible adhesions. Surgery appt made for 03/16/19 at [facility] (Dr. Myrick). Previous EGD showed signs of monilial esophagitis, gastritis w/o Hpylori. Last EGD in 2017. Last colonoscopy in 2018 w findings of diverticulosis Allergies Allergy/AdvReac Type Severity Reaction Status Date / Time aspirin Allergy Intermediate HIVES Verified 02/23/19 17:43 ibuprofen Allergy Intermediate HIVES Verified 02/23/19 17:43 levofloxacin Allergy Intermediate HIVES Verified 02/23/19 17:43 Iodinated Contrast Media Allergy Unknown IV ONLY - Verified 02/23/19 17:43 HIVES pregabalin AdvReac Intermediate SEVERE Verified 02/23/19 17:43 DEPRESSION zolpidem AdvReac Intermediate HALLUCINATI Verified 02/23/19 17:43 ONS gabapentin AdvReac Mild GOOFY Verified 02/23/19 17:43 THOUGHTS Home Medications Home Medications Medication Instructions Recorded Confirmed Type albuterol sulfate [Ventolin HFA] 2 puff INHALATION Q4H PRN 03/03/18 02/23/19 History cyanocobalamin (vitamin B-12) 1,000 mcg PO QAM 03/03/18 02/23/19 History docusate sodium [Colace] 200 mg PO HS 03/03/18 02/23/19 History epinephrine [EpiPen] 0.3 mg IM DIRECTED PRN 03/03/18 02/23/19 History furosemide [Lasix] 40 mg PO QAM 03/03/18 02/23/19 History nitroglycerin [Nitrostat] 0.4 mg SUBLINGUAL DIRECTED PRN 03/03/18 02/23/19 History polyethylene glycol 3350 [Miralax] 17 g PO DAILY PRN 03/03/18 02/23/19 History ipratropium-albuterol 3 ml INHALATION QID PRN 08/10/18 02/23/19 History immune glob,gamm(IgG) 10 %-pro-IgA 10 gm IV .COMPLEX ml 01/05/19 02/23/19 History 0 to 50 mcg/mL intravenous solution warfarin 5 mg tablet 5 mg PO SUTUTHSA@1600 tab 01/05/19 02/23/19 History clopidogrel 75 mg tablet 75 mg PO QAM 01/06/19 02/23/19 History escitalopram 10 mg tablet 10 mg PO QAM 01/06/19 02/23/19 History amoxicillin 875 mg-potassium 1 tab PO Q12H #20 tab 02/19/19 02/23/19 Rx clavulanate 125 mg tablet atorvastatin 20 mg PO DAILY 02/23/19 02/23/19 History cannabidiol (CBD) extract See Rx Instructions .ROUTE .COMPLEX 02/23/19 02/23/19 History cholecalciferol (vitamin D3) 1,000 unit PO BID 02/23/19 02/23/19 History pantoprazole 40 mg PO BID 02/23/19 02/23/19 History prednisone 10 mg PO DAILY 02/23/19 02/23/19 History warfarin 7.5 mg PO MOWEFR@1600 02/23/19 02/23/19 History budesonide-formoterol [Symbicort] 2 puff INHALATION BID 30 Days #1 03/01/19 Rx device sucralfate 1 gm PO ACHS #60 tab 03/01/19 Rx Patient History Medical History Adrenal insufficiency (Chronic) Hypogammaglobulinemia (Chronic) Chronic respiratory failure with hypoxia, on home O2 therapy (Chronic) Anemia (Chronic) GERD (gastroesophageal reflux disease) (Chronic) Chronic steroid use (Chronic) for severe asthma Heterozygous alpha 1-antitrypsin deficiency (Chronic) Dyslipidemia (Chronic) History of pulmonary embolism (Chronic) CAD (coronary artery disease) (Chronic) Nonobstructive by cardiac cath 11/2017 Asthma, severe persistent (Chronic) XIAO on CPAP (Chronic) Disp fx of distal pole of navicular bone of left wrist w/routine heal (Chronic) 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 Follows with pulm. On chronic steroids Prednisone 20mg and albuterol prn. Has not used albuterol since last hospital admission 03/2018. Chronic back pain Chronic respiratory failure with hypoxia [facility] FOR BOWEL PERF 2/2 DIVERTICULITIS AND ACUTE ASTHMA EXAC...POST OP ICU ON VENT X 24HRS. Depression Dyslipidemia GERD (gastroesophageal reflux disease) H/O adrenal insufficiency History of colonic diverticulitis History of pulmonary embolism 03/2015 post-op, then again spontaneously 02/2018. On Coumadin. Hypogammaglobulinemia Immunoglobulin deficiency Microscopic hematuria chronic problem Osteoporosis Seizure WORK UPS DONE FOR DX OF SEIZURES..PT REPORTS DR CASAS REPORTED THAT SEIZURES SHOULD NOT BE IN PT HX/SYMPTOMS PRIOR TO WORK UP STUDIES: STANDING UP TO QUICK AFTER SITTING FOR AN HOUR WILL GET WHOOZY FEELING, DOES NOT PASS OUT ...IF SITS BACK DOWN IS FINE Sleep apnea With hypoxemia. Using CPAP with O2 HS Steroid-induced osteoporosis Surgical History History of colectomy (Chronic) COLOSTOMY AND REVERSAL History of colonoscopy (Chronic) History of cardiac catheterization (Chronic) 2017...CHEST TIGHTNESS.ABNORMAL STRESS...[facility]..BLOCKAGES 50 % 60% - NO S TENT(S) FEW YEARS AGO...CHEST DISCOMFORT...[place]...NO FINDINGS H/O dilation and curettage H/O exploratory laparotomy Organ biopsies for suspected Hodgkins lymphoma, long time ago H/O right knee surgery H/O sinus surgery H/O: hysterectomy History of appendectomy History of bronchoscopy "for mucous plugs" History of carpal tunnel surgery S/P herniorrhaphy Status post hernia repair Status post partial colectomy Family History Mother Hypertension Father Coronary heart disease Social History Preferred Language: Romanian Communication Ability: Effective Visual Impairment: No Limitations Hearing Ability: Normal Control Equipment Electrician Required: No Beliefs That Will Affect Care: None marital status: Current Living Situation: Spouse current occupational status: disabled Feels Safe at Home: Yes Smoking Status: Former smoker Tobacco Type: cigarettes ; Cigarettes Per Day: 20 ; Number of Years Since Quit: 14 ; Second Hand Exposure: No ; Hx Alcohol Use: No Hx Substance Use: No Review of Systems Review of Systems: All systems reviewed & are unremarkable except as noted in HPI & below Physical Exam Constitutional: WD/WN, vitals as above well groomed, cooperative and comfortable Eyes: PERRL, conjunctivae normal, anicteric sclerae ENMT: external ear and nose normal, oropharynx normal Respiratory: normal respiratory effort, lungs clear to auscultation Cardiovascular: RRR, no murmur, no edema Gastrointestinal (Abdomen): Percussion/Palpation: + abdomen tender (epigastric) mild distension, bowel sounds present Skin: no rashes, warm and dry no jaundice Neurologic: Motor/Sensory: no asterixis Psychiatric: A+Ox3, euthymic affect Lymphatic: no lymphedema Results & Data Vital Signs (Past 12 Hours) Vital Signs Temp Pulse Pulse Resp BP BP Pulse Ox 03/02/19 07:19 36.5 C 53 L 16 120/77 98 03/02/19 04:00 36.5 C 53 L 18 109/68 97 03/02/19 01:30 61 16 96 03/01/19 23:54 65 16 96 03/01/19 23:30 36.8 C 68 20 111/70 94 03/01/19 22:20 83
[2019-03-02] MEDS: WARFARIN SOD 5 MG TAB PO SCH (15:51)
--- NOTE | 2019-03-02 18:27 | Surgery Consultation ---
Date of Consultation March 02, 2019 Assessment & Plan (1) Epigastric abdominal pain: The etiology of her abdominal discomfort is unclear. There were no findings on the CT scan. She had a question as to whether these discomfort areas may be due to adhesions which I explained is difficult to tell since they do not appear on any radiologic study. She was scheduled to be evaluated in [place] by Dr. Donaldson who did her large hernia repair and I would encourage her to keep that visit. There is no need for surgical intervention at this time. There is no evidence of peritonitis. History of Present Illness Reason for Consultation: Epigastric abdominal pain Requesting Physician: Travis Arias MD Attending Physician: Travis Arias MD History of Present Illness I been asked by Dr. Arias to see this 58-year-old female who was admitted with exacerbation of her asthma. She is being treated for that but has also complained of discomfort that is located in the epigastric region superiorly below the rib cage and xiphoid. She states that it feels as though there is a role of something that will then "turn under in which case she will have a dull ache that then turns to a more sharp and burning sensation. This is been going on for about 2 months. She has had the dull ache-like sensation that is almost continuous with paroxysms of the more severe sharp pain. There is no associated nausea or vomiting. She has not seen a bulge in that area. She has no change in her bowel or bladder habits. She denies melena and hematochezia. She has had multiple previous abdominal procedures. The last procedure was a large ventral abdominal hernia repair and she describes a piece of mesh having been placed from her xiphoid to her pubis and towards the lateral most aspect of her abdominal wall. At one point she underwent a sigmoid resection with formation of colostomy. She stated that procedure lasted 14 hours requiring significant lysis of adhesions. She then developed a hernia at the colostomy site after it was reversed. That necessitated the large ventral hernia repair. Allergies Allergy/AdvReac Type Severity Reaction Status Date / Time aspirin Allergy Intermediate HIVES Verified 02/23/19 17:43 ibuprofen Allergy Intermediate HIVES Verified 02/23/19 17:43 levofloxacin Allergy Intermediate HIVES Verified 02/23/19 17:43 Iodinated Contrast Media Allergy Unknown IV ONLY - Verified 02/23/19 17:43 HIVES pregabalin AdvReac Intermediate SEVERE Verified 02/23/19 17:43 DEPRESSION zolpidem AdvReac Intermediate HALLUCINATI Verified 02/23/19 17:43 ONS gabapentin AdvReac Mild GOOFY Verified 02/23/19 17:43 THOUGHTS Home Medications Home Medications Medication Instructions Recorded Confirmed Type albuterol sulfate [Ventolin HFA] 2 puff INHALATION Q4H PRN 03/03/18 02/23/19 History cyanocobalamin (vitamin B-12) 1,000 mcg PO QAM 03/03/18 02/23/19 History docusate sodium [Colace] 200 mg PO HS 03/03/18 02/23/19 History epinephrine [EpiPen] 0.3 mg IM DIRECTED PRN 03/03/18 02/23/19 History furosemide [Lasix] 40 mg PO QAM 03/03/18 02/23/19 History nitroglycerin [Nitrostat] 0.4 mg SUBLINGUAL DIRECTED PRN 03/03/18 02/23/19 History polyethylene glycol 3350 [Miralax] 17 g PO DAILY PRN 03/03/18 02/23/19 History ipratropium-albuterol 3 ml INHALATION QID PRN 08/10/18 02/23/19 History immune glob,gamm(IgG) 10 %-pro-IgA 10 gm IV .COMPLEX ml 01/05/19 02/23/19 History 0 to 50 mcg/mL intravenous solution warfarin 5 mg tablet 5 mg PO SUTUTHSA@1600 tab 01/05/19 02/23/19 History clopidogrel 75 mg tablet 75 mg PO QAM 01/06/19 02/23/19 History escitalopram 10 mg tablet 10 mg PO QAM 01/06/19 02/23/19 History amoxicillin 875 mg-potassium 1 tab PO Q12H #20 tab 02/19/19 02/23/19 Rx clavulanate 125 mg tablet atorvastatin 20 mg PO DAILY 02/23/19 02/23/19 History cannabidiol (CBD) extract See Rx Instructions .ROUTE .COMPLEX 02/23/19 02/23/19 History cholecalciferol (vitamin D3) 1,000 unit PO BID 02/23/19 02/23/19 History pantoprazole 40 mg PO BID 02/23/19 02/23/19 History prednisone 10 mg PO DAILY 02/23/19 02/23/19 History warfarin 7.5 mg PO MOWEFR@1600 02/23/19 02/23/19 History budesonide-formoterol [Symbicort] 2 puff INHALATION BID 30 Days #1 03/01/19 Rx device sucralfate 1 gm PO ACHS #60 tab 03/01/19 Rx Patient History Medical History Adrenal insufficiency (Chronic) Hypogammaglobulinemia (Chronic) Chronic respiratory failure with hypoxia, on home O2 therapy (Chronic) Anemia (Chronic) GERD (gastroesophageal reflux disease) (Chronic) Chronic steroid use (Chronic) for severe asthma Heterozygous alpha 1-antitrypsin deficiency (Chronic) Dyslipidemia (Chronic) History of pulmonary embolism (Chronic) CAD (coronary artery disease) (Chronic) Nonobstructive by cardiac cath 11/2017 Asthma, severe persistent (Chronic) XIAO on CPAP (Chronic) Disp fx of distal pole of navicular bone of left wrist w/routine heal (Chronic) 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 Follows with pulm. On chronic steroids Prednisone 20mg and albuterol prn. Has not used albuterol since last hospital admission 03/2018. Chronic back pain Chronic respiratory failure with hypoxia RESPIRATORY ISSUES FROM ASTHMA ATTACK 5 YRS AGO/[facility]. WAS ADMITTED FOR BOWEL PERF 2/2 DIVERTICULITIS AND ACUTE ASTHMA EXAC...POST OP ICU ON VENT X 24HRS. Depression Dyslipidemia GERD (gastroesophageal reflux disease) H/O adrenal insufficiency History of colonic diverticulitis History of pulmonary embolism 03/2015 post-op, then again spontaneously 02/2018. On Coumadin. Hypogammaglobulinemia Immunoglobulin deficiency Microscopic hematuria chronic problem Osteoporosis Seizure WORK UPS DONE FOR DX OF SEIZURES..PT REPORTS DR CASAS REPORTED THAT SEIZURES SHOULD NOT BE IN PT HX/SYMPTOMS PRIOR TO WORK UP STUDIES: STANDING UP TO QUICK AFTER SITTING FOR AN HOUR WILL GET WHOOZY FEELING, DOES NOT PASS OUT ...IF SITS BACK DOWN IS FINE Sleep apnea With hypoxemia. Using CPAP with O2 HS Steroid-induced osteoporosis Surgical History History of colectomy (Chronic) COLOSTOMY AND REVERSAL History of colonoscopy (Chronic) History of cardiac catheterization (Chronic) 2017...CHEST TIGHTNESS.ABNORMAL STRESS...[facility]..BLOCKAGES 50 % 60% - NO STENT(S) FEW YEARS AGO...CHEST DISCOMFORT...[place]...NO FINDINGS H/O dilation and curettage H/O exploratory laparotomy Organ biopsies for suspected Hodgkins lymphoma, long time ago H/O right knee surgery H/O sinus surgery H/O: hysterectomy History of appendectomy History of bronchoscopy "for mucous plugs" History of carpal tunnel surgery S/P herniorrhaphy Status post hernia repair Status post partial colectomy Family History Mother Hypertension Father Coronary heart disease Social History Preferred Language: Arabic Communication Ability: Effective Visual Impairment: No Limitations Hearing Ability: Normal Home Teaching Grades 9 Thru 12 Teacher Required: No Beliefs That Will Affect Care: None marital status: Current Living Situation: Spouse current occupational status: disabled Feels Safe at Home: Yes Smoking Status: Former smoker Tobacco Type: cigarettes ; Cigarettes Per Day: 20 ; Number of Years Since Quit: 14 ; Second Hand Exposure: No ; Hx Alcohol Use: No Hx Substance Use: No Physical Exam Constitutional: + obese; no acute distress Neck: trachea midline Respiratory: Auscultation: + wheezes (Scattered throughout) Cardiovascular: Rate/Rhythm: regular rate and regular rhythm Gastrointestinal (Abdomen): normal bowel sounds, soft, nontender, no hepatosplenomegaly Inspection/Auscultation: abdomen not distended Percussion/Palpation: + abdomen tender (Diffuse upper abdominal mild tenderness to moderate palpation) and abdomen soft; abdomen not rigid Skin: no rashes, warm and dry Lymphatic: no cervical lymphadenopathy Results & Data Vital Signs (Past 12 Hours) Vital Signs Temp Pulse Pulse Resp BP BP Pulse Ox 03/02/19 14:00 36.7 C 86 18 118/75 90 03/02/19 13:19 75 16 96 03/02/19 11:11 36.5 C 62 14 132/79 90 03/02/19 07:19 36.5 C 53 L 16 120/77 98 03/02/19 07:00 [address] WITH CONTRAST; CT ABDOMEN PELVIS IV CONTRAST ONLY CT DOSE: 1718.52 mGy.cm HISTORY: Acute shortness of breath with lower chest and upper abdominal pain sob, hx rib fxs TECHNIQUE: Multiaxial CT images of the chest, abdomen and pelvis were performed following the IV administration of 93 cc of Optiray 320. A dose lowering technique was utilized adhering to the principles of ALARA. COMPARISON: Chest radiograph of same day, CT chest 03/09/2018, CT abdomen and pelvis 04/13/2017, 03/31/2015. FINDINGS: CT CHEST: Unremarkable thyroid. No adenopathy. Left subclavian [id number] catheter distal tip terminates within the inferior SVC. Heart is normal in size with trace pericardial effusion. No thoracic aortic aneurysm or dissection. Patency of the imaged great vessels. The opacified pulmonary artery appears unremarkable. Linear subsegmental bibasilar consolidative and groundglass densities suggest atelectasis. Mild emphysema. Patchy groundglass opacities of the apical segment right upper lobe have slightly progressed from comparison. No overt pulmonary edema. Central airways appear patent. Soft tissues are unremarkable. Degenerative changes of the shoulders and spine. Healed remote bilateral rib fractures. Remote compression deformity with kyphoplasty changes at T9. 25% superior endplate compression deformity at T11 is unchanged. CT ABDOMEN/PELVIS: There is no pneumatosis or pneumoperitoneum. Cholecystectomy. Mild intrahepatic and extrahepatic biliary ductal dilation, likely postsurgical. Spleen, pancreas and adrenal glands are unremarkable. Indeterminate intermediate attenuating 9 x 9 mm lesion of the interpolar right kidney appears unchanged in size from 2015. No urolith or obstructive uropathy. Mild urinary bladder distention. 2.6 cm left adnexal cystic lesion, unchanged. Hysterectomy. Severe calcified plaque of the abdominal aorta without aneurysm. No adenopathy. No bowel obstruction or bowel wall thickening. Colonic diverticulosis without acute diverticulitis. Postoperative changes from prior partial sigmoid colon resection. The appendix is not diagnostically visualized, likely surgically absent. No ascites or mesenteric inflammation. Postoperative changes of the anterior abdominal wall. Areas of subcutaneous stranding/nodularity of the anterior abdominal wall may reflect injection granulomata. Multiple healed remote bilateral rib fractures. No acute fracture identified. IMPRESSION: 1. No acute intra-abdominal or intrapelvic abnormality. 2. Multiple healed remote rib fractures with remote T9 and T11 compression deformities. 3. Minimal patchy groundglass opacities of the apical segment right upper lobe are suspicious for an infectious or inflammatory pneumonitis. 4. Colonic diverticulosis without acute diverticulitis. 5. Additional findings as above.
[2019-03-02] MEDS: TRAMADOL HCL 50 MG TABLET PO PRN (19:37)
[2019-03-02] MEDS: DOCUSATE SODIUM 100 MG CAP PO SCH (19:43)
[2019-03-03] MEDS: HEPARIN 100 UNIT/ML 5ML FLUSH FLUSH PRN ×2 (00:26→09:00)
[2019-03-03] MEDS: IPRATROPIUM BROMIDE NEB SOLN 0.02% 2.5 ML VIAL INH SCH ×2 (01:32→07:05)
[2019-03-03] MEDS: LEVALBUTEROL 1.25MG/0.5ML NEB INH SCH ×2 (01:32→07:05)
[2019-03-03] MEDS: OXYCODONE HCL IR 5 MG TAB (IMMEDIATE RELEASE) PO PRN ×2 (01:40→08:50)
[2019-03-03] MEDS: TIOTROPIUM BROMIDE 5 PUFF/90 MCG INH INH SCH (08:51)
[2019-03-03] MEDS: methylPREDNISolone 40 MG in SYRINGE 0 ML IV SCH (08:51)
[2019-03-03] MEDS: SUCRALFATE 1 GM/10 ML UDC PO SCH ×2 (08:52→12:26)
[2019-03-03] MEDS: ESCITALOPRAM OXALATE 10 MG TAB PO SCH (08:52)
[2019-03-03] MEDS: BUDESONIDE/FORMOTEROL FUMARATE 160/4.5 60 PUFFS/INHALER INH SCH (08:52)
[2019-03-03] MEDS: CYANOCOBALAMIN 500 MCG TABLET (VITAMIN B-12) PO SCH (08:52)
[2019-03-03] MEDS: CLOPIDOGREL BISULFATE 75 MG TAB PO SCH (08:52)
[2019-03-03] MEDS: PANTOprazole 40 MG TAB PO SCH (08:52)
[2019-03-03] MEDS: ATORVASTATIN 20 MG TAB PO SCH (08:52)
--- NOTE | 2019-03-03 08:57 | Hospitalist Progress Note ---
Date of Service March 03, 2019 Assessment & Plan (1) Acute on chronic respiratory failure with hypoxia: Secondary to asthma exacerbation complicated by heterozygous alpha 1 antitrypsin deficiency and sleep apnea CT of the chest showed old healed rib fractures and remote T9 compression defo rmities, minimal patchy groundglass opacities of the apical segment of the right upper lobe suspicious for infectious and/or inflammatory pneumonitis. Clinically better saturating well with nasal cannula oxygen Feeling a little bit better but not ready to be discharged Advised to ambulate more in the hallway Remains stable but feels that she is not yet ready to be discharged No shortness of breath at rest Clinically a lot better today Has had taped with steps O2 saturation test without any desaturation No acute shortness of breath or palpitation Has been ambulating well (2) Asthma exacerbation: This is a 58yo F with a PMH of severe asthma on chronic steroids, heterozygous alpha 1-antitrypsin deficiency, XIAO on CPAP at bedtime with 2 L nasal cannula O2, CAD (s/p stent), CHF, history of PE on Coumadin and other medical problems listed below who presents with worsening shortness of breath over the past few days was found to have acute on chronic respiratory failure with hypoxia and asthma exacerbation. Has been on intravenous Solu-Medrol and nebulized bronchodilators Oxygen supplementation at visit Has been on Augmentin as an outpatient and will finish the course Feeling better but complains to have some upper abdominal discomfort which seems to be chronic Appreciate pulmonary input and recommendation We will continue current management Clinically not better today and to ready to go home this afternoon (3) Hypokalemia: Potassium level is corrected (4) Chronic diastolic heart failure: No evidence of acute CHF and no fluid overload Will restart her home dose of furosemide We will continue her current dose of diuretic (5) CAD (coronary artery disease): Denies any acute cardiac symptoms Status post cardiac cath in October of this year: Impression: Mildly elevated pulmonary artery pressures Normal left ventricular filling pressure Widely patent stent in the left circumflex artery No change in the right coronary stenosis previously documented on 08/11/2018 Normal cardiac output No evidence of aortic stenosis No cardiac symptoms (6) Anemia: Hemoglobin remains at 8.5 (7) History of pulmonary embolism: INR is therapeutic at 2.0 We will continue current dose of Coumadin INR is 2.0 110/20 and on 03/01 (8) Dyslipidemia: Continue statin Chronic abdominal pain and has a mesh to prevent hernia Complaint history of worse for the last few days Denies any distention and/or obstructive symptoms Has been on Protonix 40 mg twice daily Will start that medications while in the hospital CT scan of the abdomen and pelvis did not show any significant findings Likely be discharged today after lunch Ultrasound of the abdomen did not show any hepatosplenomegaly, 1.1 cm dilation in the spleen is likely due to hemangioma Advised to keep appointment with her general surgeon at [place] Appreciate surgery input and recommendation: No acute indication for any surgical intervention. Was advised to keep appointment with surgeon at [place] The patient is agreeable to the Will discharge home this afternoon Subjective 02/24 Patient was seen and examined in medical telemetry unit She was admitted yesterday with the acute exacerbation of asthma Complaining of upper abdominal discomfort/pain for the last 2 months without any obstructive symptoms No fever and chills Denies any shortness of breath at rest 02/25 The patient was seen and examined in medical telemetry unit She complains to have shortness of breath on minimal exertion Does not think that she can go home today Abdominal pain and other symptoms remain stable 02/26 Patient was seen and examined in medical telemetry unit She denies any symptoms at rest Has been complaining of shortness of breath with low saturation with ambulation She will have to do steps O2 saturation before discharge this 02/27 The patient was seen and examined in medical telemetry unit She has not been any better or any worse Complains to have epigastric fullness and discomfort without nausea and/or vomiting Denies any shortness of breath and/or wheezing at rest 02/28 The patient was seen and examined in medical floor She has been feeling better except epigastric fullness and discomfort She is worried about having splenomegaly and things that may be her cause for discomfort No shortness of breath at rest 03/01 The patient was seen and examined in medical floor She has been a lot better today Minimal epigastric pain Minimal shortness of breath with ambulate Will get to do steps O2 saturation before discharge this 03/03 The patient was seen and examined in medical floor She still complains of some epigastric fullness and pain She denies any chest pain and/or shortness of breath Denies any fever and/or chills She will be going home this afternoon Review of Systems Review of Systems: All systems reviewed and are unremarkable except as noted below Constitutional: + weakness; no fever Respiratory: + cough and + dyspnea on exertion Cardiovascular: no chest pain Gastrointestinal: + abdominal pain (Upper abdominal discomfort with fullness) and + bloating; no nausea and no vomiting Physical Exam Physical Exam: Lying in bed comfortably Constitutional: well developed, well nourished and + obese; no acute distress and not ill appearing Eyes: PERRL, conjunctivae normal, anicteric sclerae ENMT: external ear and nose normal, oropharynx normal Neck: trachea midline, no thyromegaly Respiratory: normal respiratory effort; no respiratory distress Auscultation: lungs clear to auscultation bilaterally and + diminished lung sounds Cardiovascular: Rate/Rhythm: regular rate and regular rhythm Heart Sounds: no murmur Gastrointestinal (Abdomen): Inspection/Auscultation: + abdomen distended and normal bowel sounds Percussion/Palpation: + abdomen tender (Minimally tender in the epigastrium) and abdomen soft; no guarding Musculoskeletal: No acute arthritis in any joints Neurologic: moves all extremities; no focal motor deficits Motor/Sensory: no tremor Psychiatric: A+Ox3, euthymic affect Lymphatic: no cervical or axillary lymphadenopathy Results & Data Vital Signs (Past 12 Hours) Vital Signs Temp Pulse Pulse Resp BP BP Pulse Ox 03/03/19 07:35 36.4 C L 56 L 128/80 100 03/03/19 03:38 36.5 C 57 L 18 115/73 99 03/03/19 01:32 58 L 58 L 18 97 03/03/19 00:00 73 03/02/19 23:33 36.4 C L 69 19 121/79 96 Medications Administered Current Inpatient Medications Acetaminophen (Tylenol) 650 mg PO Q4H PRN PRN Reason: Pain or Fever Stop: 03/25/19 22:31 Atorvastatin Calcium (Lipitor) 20 mg PO DAILY PENDING SALE TO [facility] Stop: 03/26/19 08:59 Last Admin: 03/03/19 08:52 Dose: 20 mg Documented by: Budesonide/Formoterol Fumarate (Symbicort 160mcg/4.5mcg) 2 puffs INH BID PENDING SALE TO [facility] Stop: 03/26/19 20:59 Last Admin: 03/03/19 08:52 Dose: 2 puffs Documented by: Clopidogrel Bisulfate (Plavix) 75 mg PO QAM PENDING SALE TO [facility] Stop: 03/26/19 08:59 Last Admin: 03/03/19 08:52 Dose: 75 mg Documented by: Cyanocobalamin (Vitamin B-12) 1,000 mcg PO QAM DESI Stop: 03/26/19 08:59 Last Admin: 03/03/19 08:52 Dose: 1,000 mcg Documented by: Dicyclomine HCl (Bentyl) 10 mg PO Q6H PRN PRN Reason: Cramping Stop: 03/31/19 15:44 Last Admin: 03/01/19 17:12 Dose: 10 mg Documented by: Docusate Sodium (Colace) 200 mg PO HS DESI Stop: 03/26/19 20:59 Last Admin: 03/02/19 19:43 Dose: 200 mg Documented by: Escitalopram Oxalate (Lexapro Tab) 10 mg PO QAM DESI Stop: 03/26/19 08:59 Last Admin: 03/03/19 08:52 Dose: 10 mg Documented by: Heparin Sodium (Porcine) (Heparin Sod 100 Unit/Ml Flush) 5 ml FLUSH PRN PRN PRN Reason: Flush Stop: 03/27/19 08:15 Last Admin: 03/03/19 00:26 Dose: 5 ml Documented by: Methylprednisolone 40 mg/ (Syringe) 0.64 mls @ 1.5 mls/min IV DAILY DESI Stop: 03/26/19 08:59 Last Admin: 03/03/19 08:51 Dose: 1.5 mls/min Documented by: Promethazine HCl 12.5 mg/ (Sodium Chloride) 50.5 mls @ 202 mls/hr IV Q6H PRN PRN Reason: Nausea And Vomiting Stop: 03/25/19 22:31 Last Infusion: 03/02/19 09:47 Dose: Infused Documented by: Acetaminophen (Ofirmev) 1,000 mg in 100 mls @ 400 mls/hr IV Q8H PRN PRN Reason: Pain Stop: 03/29/19 15:48 Last Infusion: 03/03/19 00:26 Dose: Infused Documented by: Ipratropium [place] (Atrovent 0.02% 0.5mg/2.5ml) 0.5 mg INH Q6R DESI Stop: 03/26/19 00:59 Last Admin: 03/03/19 07:05 Dose: Not Given Documented by: Levalbuterol HCl (Xopenex 1.25mg/0.5ml Neb) 1.25 mg INH Q6R PENDING SALE TO [facility] Stop: 03/26/19 00:59 Last Admin: 03/03/19 07:05 Dose: Not Given Documented by: Oxycodone HCl (Roxicodone Immediate Rel) 5 mg PO Q6H PRN PRN Reason: Pain Stop: 03/10/19 01:49 Last Admin: 03/03/19 08:50 Dose: 5 mg Documented by: Pantoprazole Sodium (Protonix) 40 mg PO BID PENDING SALE TO [facility] Stop: 03/26/19 10:29 Last Admin: 03/03/19 08:52 Dose: 40 mg Documented by: Polyethylene Glycol (Miralax Powder Packet) 17 gm PO DAILY PRN PRN Reason: Constipation Stop: 03/25/19 22:31 Sucralfate (Carafate) 1 gm PO QID PENDING SALE TO [facility] Stop: 03/29/19 12:59 Last Admin: 03/03/19 08:52 Dose: 1 gm Documented by: Tiotropium [place] (Spiriva) 1 puffs INH QAM PENDING SALE TO [facility] Stop: 03/26/19 17:59 Last Admin: 03/03/19 08:51 Dose: 1 puffs Documented by: Tramadol HCl (Ultram) 25 - 50 mg PO Q4H PRN PRN Reason: Pain Stop: 03/25/19 22:31 Last Admin: 03/02/19 19:37 Dose: 50 mg Documented by: Warfarin Sodium (Coumadin) 5 mg PO SUTUTHSA@1600 PENDING SALE TO [facility] Stop: 03/27/19 15:59 Last Admin: 03/02/19 15:51 Dose: 5 mg Documented by: Warfarin Sodium (Coumadin) 7.5 mg PO MOWEFR@1600 PENDING SALE TO [facility] Stop: 03/31/19 15:59 Last Admin: 03/01/19 17:12 Dose: 7.5 mg Documented by: (1) Asthma exacerbation Asthma persistence: persistent Asthma severity: unspecified severity Qualified Code(s): J45.901 - Unspecified asthma with (acute) exacerbation
--- NOTE | 2019-03-03 09:22 | Discharge Summary ---
Date of Service March 03, 2019 Admission HPI Per Admitting Provider This is a 58yo F with a PMH of severe asthma on chronic steroids, XIAO on CPAP at bedtime with 2 L nasal cannula O2, CAD (s/p stent), CHF, history of PE on Coumadin and other medical problems listed below who presents with worsening shortness of breath over the past few days. Has noted a sore throat, ear pain and a "tight" feeling in lower chest/abdomen that makes it difficult for her to take a full breath. Denies fever, chills or cough. Was started on 10-day Augmentin course and prednisone taper for concern for acute bronchitis. Currently endorsing tight feeling in upper chest and difficulty breathing but d enies fever, chills, lightheadedness, visual changes, chest pain, palpitations, nausea, vomiting, abdominal pain, dysuria, diarrhea or constipation. Is taking all medications as prescribed. Initially hypoxic at 86% on room air but improved to 98% on 2 L nasal cannula. Usually only requires oxygen at night with CPAP. WBC count stable at 10.9 on chronic steroids. Hemoglobin around baseline at 9.4. INR is therapeutic at 2.3 on Coumadin. Chest x-ray unchanged with left basilar opacity suggestive of atelectasis. Admission Exam Per Admitting Provider Physical Exam: General Appearance: WD/WN, vitals as above, NAD, sitting up in bed, pleasant, conversing easily, + anxious Head: normocephalic, atraumatic Eyes: normal inspection, PERRL, conjunctivae normal, anicteric sclerae ENT: external ear and nose normal, TMs pearly salazar bilaterally without surrounding erythema, oropharynx normal Neck: trachea midline, no thyromegaly normal visual inspection Respiratory: decreased air movement with expiratory wheezes throughout lung mccain. No rales or rhonchi. No accessory muscle use Cardiovascular: regular rate, rhythm, no murmur, normal peripheral pulses. Vessels: no JVD or carotid bruit Chest: normal inspection of chest Abdomen/GI: normal bowel sounds, soft, nontender, no hepatosplenomegaly Extremities/Musculoskelatal: no cyanosis or clubbing, extremities motor strength 5/5 Neurologic: PERRL, EOMI, accommodation nl, no face palsy, no dysarthria CN's II-XI intact bilaterally and moves all extremities Psychiatric: A+Ox3, euthymic affect Skin: no rashes, normal color, warm/dry Principal Diagnosis Acute on chronic respiratory failure with hypoxemia, exacerbation of asthma, CAD, history of pulmonary embolism on Coumadin Discharge Exam Constitutional well developed, well nourished and + obese; no acute distress and not ill appearing Eyes PERRL, conjunctivae normal, anicteric sclerae ENMT external ear and nose normal, oropharynx normal Neck trachea midline, no thyromegaly Respiratory normal respiratory effort; no respiratory distress Auscultation: lungs clear to auscultation bilaterally and + diminished lung sounds Cardiovascular Rate/Rhythm: regular rate and regular rhythm Heart Sounds: no murmur Gastrointestinal (Abdomen) Inspection/Auscultation: + abdomen distended and normal bowel sounds Percussion/Palpation: + abdomen tender (Minimally tender in the epigastrium) and abdomen soft; no guarding Neurologic moves all extremities; no focal motor deficits Motor/Sensory: no tremor Psychiatric A+Ox3, euthymic affect Lymphatic no cervical or axillary lymphadenopathy Discharge Data Allergies Allergy/AdvReac Type Severity Reaction Status Date / Time aspirin Allergy Intermediate HIVES Verified 02/23/19 17:43 ibuprofen Allergy Intermediate HIVES Verified 02/23/19 17:43 levofloxacin Allergy Intermediate HIVES Verified 02/23/19 17:43 Iodinated Contrast Media Allergy Unknown IV ONLY - Verified 02/23/19 17:43 HIVES pregabalin AdvReac Intermediate SEVERE Verified 02/23/19 17:43 DEPRESSION zolpidem AdvReac Intermediate HALLUCINATI Verified 02/23/19 17:43 ONS gabapentin AdvReac Mild GOOFY Verified 02/23/19 17:43 THOUGHTS Consultations 02/23/19 20:01 ED Decision to Admit Stat 02/23/19 22:32 Consult Pulmonology Routine 03/02/19 09:26 Consult Gastroenterology Routine 03/02/19 16:08 Consult General Surgery Routine Ordered Studies 02/23/19 21:39 CT chest w con Urgent 02/23/19 21:40 CT abd pelvis IV con only Urgent 02/28/19 10:28 US abdomen limited Routine Hospital Course (1) Acute on chronic respiratory failure with hypoxia: Secondary to asthma exacerbation complicated by heterozygous alpha 1 antitrypsin deficiency and sleep apnea CT of the chest showed old healed rib fractures and remote T9 compression deformities, minimal patchy groundglass opacities of the apical segment of the right upper lobe suspicious for infectious and/or inflammatory pneumonitis. Clinically better saturating well with nasal cannula oxygen Feeling a little bit better but not ready to be discharged Advised to ambulate more in the hallway Remains stable but feels that she is not yet ready to be discharged No shortness of breath at rest Clinically a lot better today Has had taped with steps O2 saturation test without any desaturation No acute shortness of breath or palpitation Has been ambulating well (2) Asthma exacerbation: This is a 58yo F with a PMH of severe asthma on chronic steroids, he terozygous alpha 1-antitrypsin deficiency, XIAO on CPAP at bedtime with 2 L nasal cannula O2, CAD (s/p stent), CHF, history of PE on Coumadin and other medical problems listed below who presents with worsening shortness of breath over the past few days was found to have acute on chronic respiratory failure with hypoxia and asthma exacerbation. Has been on intravenous Solu-Medrol and nebulized bronchodilators Oxygen supplementation at visit Has been on Augmentin as an outpatient and will finish the course Feeling better but complains to have some upper abdominal discomfort which seems to be chronic Appreciate pulmonary input and recommendation We will continue current management Clinically not better today and to ready to go home this afternoon (3) Hypokalemia: Potassium level is corrected (4) Chronic diastolic heart failure: No evidence of acute CHF and no fluid overload Will restart her home dose of furosemide We will continue her current dose of diuretic (5) CAD (coronary artery disease): Denies any acute cardiac symptoms Status post cardiac cath in October of this year: Impression: Mildly elevated pulmonary artery pressures Normal left ventricular filling pressure Widely patent stent in the left circumflex artery No change in the right coronary stenosis previously documented on 08/11/2018 Normal cardiac output No evidence of aortic stenosis No cardiac symptoms (6) Anemia: Hemoglobin remains at 8.5 (7) History of pulmonary embolism: INR is therapeutic at 2.0 We will continue current dose of Coumadin INR is 2.0 / and on 03/01 (8) Dyslipidemia: Continue statin Chronic abdominal pain and has a mesh to prevent hernia Complaint history of worse for the last few days Denies any distention and/or obstructive symptoms Has been on Protonix 40 mg twice daily Will start that medications while in the hospital CT scan of the abdomen and pelvis did not show any significant findings Likely be discharged today after lunch Ultrasound of the abdomen did not show any hepatosplenomegaly, 1.1 cm dilation in the spleen is likely due to hemangioma Advised to keep appointment with her general surgeon at [facility] Appreciate surgery input and recommendation: No acute indication for any surgical intervention. Was advised to keep appointment with surgeon at [facility] The patient is agreeable to the Will discharge home this afternoon Total Time Total Time Spent Total Time Spent (In Minutes): 35 minutes Total Time Includes: Examination of the Patient, Discharge Planning, Medication Reconciliation and Communication With Other Providers Discharge Plan Discharge Items Patient Disposition: Home - Self-Care Reason For Visit: RESP FAILURE Discharge Diagnosis: Acute on chronic respiratory failure with hypoxemia, exacerbation of asthma, CAD, history of pulmonary embolism on Coumadin Condition on Discharge: Good Activity: Resume your previous activity Non-emergency contact: Primary Care Provider Call non-emergency contact if: you have any medication questions Follow-up/Referrals: Frank Birch PA-C [Physician [facility]] - 03/05/19 10:00 am (In [place] office) Petra Kelly CRNP [Primary Care Provider] - 03/03/19 3:30 pm Diet: Heart Healthy Addtl Attending Provider Instructions: Please keep your appointment scheduled See your surgeon at [facility] Try to avoid respiratory stimulants as discussed with you Please finish the course of antibiotics Continue to have a follow-up appointment with coagulation clinic Pending Studies at Discharge: No Stand-Alone Forms: My [facility] Medications and DC Order Prescriptions: New Symbicort 160-4.5 mcg/actuation Hfa Aerosol Inhaler 2 puff inhalation BID 30 Days Qty: 1 RF: 0 sucralfate 1 gram tablet 1 gm PO ACHS Qty: 60 RF: 0 Continued Privigen 10 % solution 10 gm IV .COMPLEX RF: 0 warfarin 5 mg tablet 5 mg PO SUTUTHSA@1600 RF: 0 clopidogrel [Plavix] 75 mg tablet 75 mg PO QAM RF: 0 escitalopram oxalate 10 mg tablet 10 mg PO QAM RF: 0 amoxicillin-pot clavulanate [Augmentin] 875-125 mg tablet 1 tab PO Q12H Qty: 20 RF: 0 furosemide [Lasix] 40 mg Tablet 40 mg PO QAM RF: 0 polyethylene glycol 3350 [Miralax] 17 gram Powder In Packet 17 g PO DAILY PRN (Reason: Constipation) RF: 0 epinephrine [EpiPen] 0.3 mg/0.3 mL Auto-Injector 0.3 mg IM DIRECTED PRN (Reason: Allergic Reaction) RF: 0 albuterol sulfate [Ventolin HFA] 90 mcg/actuation Hfa Aerosol Inhaler 2 puff INHALATION Q4H PRN (Reason: Shortness Of Breath Or Wheezing) RF: 0 cyanocobalamin (vitamin B-12) 1,000 mcg Capsule 1,000 mcg PO QAM RF: 0 nitroglycerin [Nitrostat] 0.4 mg Tablet, Sublingual 0.4 mg Sublingual DIRECTED PRN (Reason: Chest Pain) RF: 0 ipratropium-albuterol 0.5 mg-3 mg(2.5 mg base)/3 mL Solution For Nebulization 3 ml INHALATION QID PRN (Reason: Shortness Of Breath Or Wheezing) RF: 0 pantoprazole 40 mg tablet,delayed release (DR/EC) 40 mg PO BID RF: 0 warfarin 5 mg Tablet 7.5 mg PO MOWEFR@1600 RF: 0 cholecalciferol (vitamin D3) 1,000 unit (25 mcg) tablet 1,000 unit PO BID RF: 0 prednisone 10 mg tablet 10 mg PO DAILY RF: 0 atorvastatin 40 mg Tablet 20 mg PO DAILY RF: 0 cannabidiol (CBD) extract 100 mg/mL Solution See Rx Instructions .ROUTE .COMPLEX RF: 0 No Action docusate sodium [Colace] 100 mg Capsule 200 mg PO HS RF: 0 Discharge Orders: Discharge Order (Routine); Ordered 03/03/19 Ordered By: Travis Arias Admission Data Admit Date/Time: 02/23/19 21:45 Attending Provider: Haris Lucas Admit Provider: Jovon Salas Primary Care Provider: Petra Kelly Other Providers: Jovon Salas ; Jerson Kim ; Odalys Bailey ; Mojgan Perez ; Kat Patino ; Ryan Kapoor ; Zhane Collisn ; Sugey Gallagher ; Jennifer Disla ; Jerson Wilder ; Arvin Schmitz ; Azalea Nath ; Yessica Mcmahno ; Ana Lovett ; Cinthia Biggs ; Preston Turner ; Vivek Lemos ; Travis Arias Other Interventions: Discharge Summary Assessment (RN) Last Done: 02/28/19 09:38
[2019-03-03] MEDS: ACETAMINOPHEN 1,000 MG/100 ML VIAL IV PRN ×2 (09:35)
== END 2019-03-03 14:06 | disposition home or self-care (01) | DRG 202 ==
LOC: ED 15:57 → 2N 21:45 → SUATTDRO 21:45 → 2N 21:58 → 2W 02-24 18:25